=== PATIENT | female | born 1940 | race Caucasian/White ===

== ENCOUNTER 2023-07-31 12:51 | Outpatient (RCR) | payer MEDICARE, BC, SELFPAY | END 2023-08-01 16:08 | disposition home or self-care (01) | LOC: OT 12:51 | DX: I89.0 Lymphedema, not elsewhere classified (principal) | CPT/HCPCS: 97140; 97166; 97535 ==

== ENCOUNTER 2025-01-29 11:25 | Outpatient (REF) | payer MEDICARE, BC, SELFPAY ==
[2025-01-29 13:42] LABS: Anion Gap 8.9; Blood Urea Nitrogen 35.0 mg/dL (7.0-18.0); Calcium 9.1 mg/dL (8.5-10.1); Carbon Dioxide 31.3 mmol/L (21.0-32.0); Chloride 107 mmol/L (98-107); Estimated GFR (African America 27 (>=60 mL/min/1.73m^2); Estimated GFR (Non-African Ame 22 (>=60 mL/min/1.73m^2); Glucose 108 mg/dL (74-106); Potassium 4.2 mmol/L (3.5-5.1); Sodium 143 mmol/L (136-145)
--- OUTSIDE RECORDS SUMMARY | 2025-02-01 14:10 | XMS_ITS | CCD ---
Author Organization [facility] Inform ion Partnership [facility] Care Team Providers Care Quarter Folder Name Role Phone Pam Moses Consulting Unavailable Edgar Friend Admitting UnavailMarta Alatorre Primary Care Unavailable Torrie Ruano Attending Unavailable Moses Cormier Consulting Unavailable Elroy Morrison Consulting Unavailable Geovanny Cruz Consulting Unavail able Sunitha Nathan Consulting Unavailable Danilo Short Consulting Unavailab Lizeth Zarco Consulting Unavailable Gerda Turner Consulting Unavailable Carol Titus Consulting Unavailab Richard Land Consulting Unavailable DR MARILY MORRIS Primary Care Unavailable RAZ LEVINE Attending Unavailable RAZ LEVINE Admitting Unavailable Marta Dee MD Primary Care Provider WILL ENAMORADO Attending Unavailable JACLYN POTTS Attending Unavailable JACLYN POTTS Attending Unavailable DELROY, JACLYN Colbert Attending Unavailable DELROY, JACLYN Colbert Attending Unavailable Marta Dee MD Primary Care Provider Angeline Bridges MD Primary Care Provider CYRUS ANGELINE Referring Unavailable CYRUS, ANGELINE Primary Care Unavailable Cyrus DRUMMOND Angeline Primary Care Provider Cyrus DRUMMOND, Angeline Primary Care Provider [phone] SURJIT CORDOVA Referring Unavailable SURJIT CORDOVA Referring Unavailable SURJIT CORDOVA Attending Unavailable SURJIT CORDOVA Attending Unavailable FREDDY MANZO Attending Unavailable CYRUS, ANGELINE Referring Unavailable CYRUS, [facility] Primary Care Unavailable PAM BROTHERS Referring Unavailable MARTA DEE Primary Care Unavailable CHAN SHARMA Attending Unavailable CYRUS, ANGELINE Primary Care Unavailable CYRUS, ANGELINE Primary Care Unavailable LASHANDA MYRICK Attending Unavailable KEE LERMA Referring Unavailable CYRUS, ANGELINE Primary Care Unavailable KEE LERMA Referring Unavailable CYRUS, ANGELINE Primary Care Unavailable KEE LERMA Referring Unavailable CYRUS, ANGELINE Primary Care Unavailable KEE LERMA Referring Unavailable CYRUS, ANGELINE Primary Care Unavailable AMADO MONTOYA Attending Unavailable CYRSU, ANGELINE Referring Unavailable CYRUS, ANGELINE Primary Care Unavailable CYRUS, ANGELINE Primary Care Unavailable MATTHEW, MUHAMID M Admitting Unavailable ONLY), [facility] (INPATIENT Consult ing Unavailable CAM HANNON Attending Unavailable CYRUS, ANGELINE Primary Care Unavailable MATTHEW, MUHAMID M Admitting Unavailable CLAUDIA TAYLOR Consulting Unavailable STEVEN MERCADO Attending Unavailable ONLY), IP WOUND CARE SERVICES (INPATIENT Consult ing Unavailable ELISEO MOODY Consulting Unavailable DAVID POTTS Consulting Unavailable JACLYN POTTS Consulting Unavailable CODIE MARCH Attending Unavailable CYRUS, ANGELINE Referring Unavailable CYRUS, ANGELINE Primary Care Unavailable CYRUS, ANGELINE Primary Care Unavailable ONLY), IP WOUND CARE SERVICES (INPATIENT Consult ing Unavailable WILKES, RUQIYYA T Admitting Unavailable WILKES, RUQIYYA T Attending Unavailable CODIE MARCH Attending Unavailable MARTA DEE Referring Unavailable CYRUS, ANGELINE Primary Care Unavailable CYRUS, ANGELINE Primary Care Unavailable MATTHEW, MUHAMID M Admitting Unavailable ONLY), IP WOUND CARE SERVICES (INPATIENT Consult ing Unavailable STEVEN MERCADO Attending Unavailable DAVID POTTS Consulting Unavailable CYRUS, ANGELINE Referring Unavailable CYRUS, ANGELINE Primary Care Unavailable STEVEN MERCADO Referring Unavailable CYRUS, ANGELINE Primary Care Unavailable WILBER WEBSTER Referring Unavailable WILBER WEBSTER Referring Unavailable WILKES, RUQIYYA T Referring Unavailable CYRUS, ANGELINE Primary Care Unavailable WILBER WEBSTER Referring Unavailable Allergies Allergy Classification Reported Allergen(s) Allergy Type Date of Onset Reaction(s) Facility (5 sources) Diatrizoate; Translations: [DIATRIZOATE MEGLUMINE] Drug Allergy 7 [facility] (6 sources) Iodine; Translations: [IODINE] Drug Allergy 6 [facility] (1 source) levoFLOXacin Drug Allergy 2 [facility] (6 sources) Lisinopril; Translations: [LISINOPRIL] Drug Allergy 2 [facility] (5 sources) Propoxyphene; Translations: [PROPOXYPHENE] Drug Allergy 7 [facility] (1 source) Iodine (And Iodine Containting Drugs) Drug allergy (disorder) 9 [facility] (1 source) levoFLOXacin Drug Allergy 9 [facility] (1 source) Propoxyphene Drug Allergy 9 [facility] (4 sources) rOPINIRole; Translations: [ROPINIROLE] Drug Allergy 9 [facility] Rep[facility] (12 sources) Capsaicin; Translations: [CAPSAICIN] Drug Allergy 3 Unknown [facility] (20 sources) Iodine Drug Allergy 6 Rash [facility] (20 sources) levoFLOXacin Drug Allergy 7 Unknown, Rash [facility] (20 sources) Propoxyphene Drug Allergy 7 Unknown, Rash [facility] (10 sources) Iodinated Contrast Media; Translations: [IODINATED CONTRAST MEDIA] Drug Allergy 7 Unknown [facility] (3 sources) Lisinopril Propensity to adverse reactions 2 Cough [facility] (8 sources) rOPINIRole Drug Allergy 4 Unknown, Other (See Comments) [facility] (20 sources) Diatrizoate Drug Allergy 7 Rash [facility] (20 sources) Lisinopril Drug Allergy 7 Cough [facility] (6 sources) levoFLOXacin; Translations: [LEVOFLOXACIN IN D5W] Drug Allergy 6 [facility] (5 sources) Capsaicin Drug Allergy 3 Other (See Comments) [facility] Medications Current Medications Medication Drug Class(es) Dates Sig (Normalized) Sig (Original) acetaminophen 325 mg oral tablet (1 source) Start: 11-08-2024 take 1 tablet by mouth every six hours as needed for pain and headache and fever acetaminophen 300 mg / codeine phosphate 30 mg oral tablet (20 sources) Opioid Agonist Start: 03-20-2024 acetaminophen-cod eine (Tylenol w/ Codeine #3) 300-30 MG tablet Take 1 tablet by mouth as needed at bedtime 03/20/2024 Active Start: 03-20-2024 take 1 tablet by cherise th once daily as needed acetaminophen-codeine (TYLENOL #3) 300-3 0 mg per tablet Take 1 tablet by mouth daily as needed. 03/20/2024 Suspended take 1 tablet by cherise th every four hours as needed for pain acetaminophen-codeine (TYLENOL #3) 300-3 0 mg per tablet Take 1 tablet by mouth every 4 (four) hours as needed for pain. Active acetaminophen 325 mg / HYDROcodone bitartrate 5 mg oral tablet (1 source) Opioid Agonist Start: 11-09-2024 100 ml calcium gluconate 20 mg/ml injection (1 source) Start: 11-13-2024 carvedilol 25 mg oral tablet (3 sources) alpha-Adrenergic Sree, beta-Adrenergic Sree take 1 tablet by mouth in the morning carvedilol (Coreg) 25 MG tablet Take 1 tablet by mouth in the morning and 1 tablet in the evening. Take with meals. Active cefepime 1000 mg injection (6 sources) Cephalosporin Antibacterial Start: 11-11-2024 End: 11-24-2024 take 1000 mg intravenously every twenty-four hours cefEPime (MAXIPIME) 1000 mg/50 mL IVPB Premix Infuse 50 mL (1,000 mg total) into a venous catheter daily for 11 days. 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 40 mg in am and 20 mg in pm. 90 tablet 6 07/31/2024 Suspended glucagon (rdna) 1 mg injecti on (1 source) Antihypoglycemic Agent Start: 11-08-2024 150 ml glucose 50 mg/ml inje ction (3 sources) Start: 11-08-2024 Start: 11-08-2024 Start: 11-08-2024 hydroCHLOROthiazide 12.5 mg / losartan potassium 100 mg oral tablet (3 sources) Thiazide Diuretic, Angiotensin 2 Receptor Sree take 1 tablet by mouth once daily losartan-hydroCHLOROthiazide (Hyzaar) 100-12.5 MG tablet Take 1 tablet by mouth Daily Active insulin aspart, human 100 unt/ml injectable solution (20 sources) Insulin Analog Insulin Aspart ( NovoLOG) 100 UNIT/ML solution Inject as directed 2 (two) times a day 16 Units Breakfast, 20 Units dinner Active insulin aspart U -100 (NovoLOG) 100 unit/mL injection Inject under the skin in the morning and at noon and in the evening. Inject before meals. As directed per sliding scale. Suspended insulin aspart U -100 (NovoLOG) 100 unit/mL injection Inject under the skin 3 (three) times a day before meals. As directed per sliding scale Active insulin detemir 100 unt/ml injectable solution (20 sources) Insulin Analog inject 50 [IU] by subcutaneous injection once daily in the morning insulin detemir (Levemir) 100 UNIT/ML injection INJECT 50 UNITS UNDER THE SKIN EVERY MORNING for 80 Active inject 60 [IU] by deal bcutaneous injection in the morning insulin detemir (LEVEMIR FLEXPEN SUBQ) Inject 60 Units under the skin in the morning. Suspended inject 60 [IU] by deal bcutaneous injection in the morning insulin detemir (LEVEMIR FLEXPEN SUBQ) Inject 60 Units under the skin in the morning. Active inject 50 [IU] by deal bcutaneous injection in the morning insulin detemir (LEVEMIR FLEXPEN SUBQ) Inject 50 Units under the skin in the morning. Active inject 50 [IU] by deal bcutaneous injection in the morning insulin detemir (LEVEMIR FLEXPEN SUBQ) Inject 50 Units under the skin in the morning. 0 Active 3 ml insulin glargine 100 un t/ml pen injector (7 sources) Insulin Analog Start: 11-09-2024 inject 0.6 mL by sub cutaneous injection in the morning insulin glargine (LANTUS) 100 unit/mL injection Inject 0.6 mL (60 Units total) under the skin in the morning. 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 11/23/2022 Active 50 ml magnesium sulfate 40 m g/ml injection (2 sources) Start: 11-13-2024 Start: 11-13-2024 2 ml ondansetron 2 mg/ml injection (1 source) Serotonin-3 Receptor Antagonist Start: 11-08-2024 take 4 mg intravenously every six hours as needed for nausea and vomiting pantoprazole 40 mg delayed release oral tablet (20 sources) Proton Pump Inhibitor Start: 11-08-2024 microencapsulated potassium chloride 20 meq extended release oral tablet (5 sources) Start: 11-14-2024 take 1 tablet by mouth in the morning potassium chloride (KLOR-CON M 20) 20 MEQ CR tablet Take 1 tablet (20 mEq total) by mouth in the morning. 11/14/2024 Active Start: 11-14-2024 Start: 11-14-2024 Start: 11-13-2024 pregabalin 25 mg oral capsule (10 sources) Start: 11-13-2024 End: 11-16-2024 take 1 capsule by mouth in the morning, then take 1 capsule by mouth at bedtime pregabalin (LYRICA) 25 mg capsule Indications: Lymphedema , Acute kidney injury superimposed on CKD Take 1 capsule (25 mg total) by mouth in the morning and 1 capsule (25 mg total) before bedtime. Do all this for 3 days. 6 capsule 11/13/2024 11/16/2024 Active Start: 11-10-2024 End: 11-16-2024 spironolactone 25 mg oral tablet (10 sources) Aldosterone Antagonist Start: 11-13-2024 take 1 tablet by mouth in the morning spironolactone (ALDACTONE) 25 mg tablet Take 1 tablet (25 mg total) by mouth in the morning. 11/13/2024 Active Start: 11-13-2024 zolpidem tartrate 5 mg oral tablet (20 sources) gamma-Aminobutyric Acid-ergic Agonist Start: 11-08-2024 zolpidem (Ambien ) 10 MG tablet Take 10 mg by mouth Active take 0.5 tablet by m outh once daily as needed for sleep zolpidem (AMBIEN) 10 mg tablet Take 0.5 tablets (5 mg total) by mouth nightly as needed for sleep. Active (6 sources) Start: 11-13-2024 take 10 mL intraveno usly every twelve hours [Order 1 Start] Name: Consult PICC nurse - Midline Signed Summary: Reason for consult? Insert Midline IV, Indication: Duration of therapy 14 days or less, Number of Lumen(s): 1 Lumen [Order 1 End] [Order 2 Start] Name: sodium chloride 0.9 % flush 10 mL Signed Summary: 10 mL, intravenous, Every 12 hours, First dose on Sat11/13/24 at 1115, PICC line. Administer 10 mL per lumen; 10 mL total (for single lumen flush) [Order 2 End] [Order 3 Start] Name: sodium chloride 0.9 % flush 10 mL Signed Summary: 10 mL, intravenous, As needed, line care, Starting on Sat11/13/24 at 1101, PICC line. Administer 10 mL to each lumen before and after each use. Administer 10 mL per lumen; 10 mL total (for single lumen flush) [Order 3 End] [Order 4 Start] Name: sodium chloride 0.9 % flush 20 mL Signed Summary: 20 mL, intravenous, As needed, line care, Starting on Sat11/13/24 at 1101, PICC line. Administer 20 mL to each lumen after lab draws, blood infusion, and meds known to precipitate. Administer 20 mL per lumen; 20 mL total (for single lumen flush) [Order 4 End] Start: 11-13-2024 [Order 1 Start ] Name: sodium phosphate 20 mmol in sodium chloride 0.9 % 250 mL IVPB Signed Summary: 20 mmol, intravenous, at 42.8 mL/hr, Administer over 6 Hours, As needed, for phosphorus level 2.3 mg/dL or less, Starting on Sat11/13/24 at 0936, Administer over 6 hours via dedicated line (peripheral line). If administered, recheck phosphorus level 4 hours after infusion complete. [Order 1 End] [Order 2 Start] Name: sod phos di, mono-K phos mono (K-PHOS NEUTRAL) 250 mg tablet 2 tablet Signed Summary: 2 tablet, oral, As needed, for phosphorus level 2.3 mg/dL or less., Starting on Sat11/13/24 at 0936, If dose administered, recheck phosphorus level 4 hours after last dose. Look-alike/sound-alike medication - verify indication for use. Give with a full glass of water. [Order 2 End] Start: 11-13-2024 Start: 11-13-2024 Start: 11-13-2024 [Order 1 Start ] Name: potassium chloride (KLOR-CON M 20) CR tablet 20-40 mEq Signed Summary: 20-40 mEq, oral, As needed, Potassium Supplementation, Starting on Sat11/13/24 at 0935, Progress to oral potassium replacement when patient tolerating oral intake. If dose administered, recheck potassium level 4 hours after last dose. For potassium level 3.4 to 3.8 mmol/L and GFR less than 30 mL/min or dialysis=20 mEq. For potassium level 3.1 to 3.3 mmol/L and GFR less than 30 mL/min or dialysis=30 mEq. For potassium level 3 mmol/L or less and GFR less than 30 mL/min or dialysis=40 mEq. Do not crush or chew. [Order 1 End] [Order 2 Start] Name: potassium chloride (KAYCIEL) 20 mEq/15 mL solution 20-40 mEq Signed Summary: 20-40 mEq, oral, As needed, Potassium Supplementation, Starting on Sat11/13/24 at 0935, Progress to oral potassium replacement when patient tolerating oral intake. If dose administered, recheck potassium level 4 hours after last dose. For potassium level 3.4 to 3.8 mmol/L and GFR less than 30 mL/min or dialysis=20 mEq. For potassium level 3.1 to 3.3 mmol/L and GFR less than 30 mL/min or dialysis=30 mEq. For potassium level 3 mmol/L or less and GFR less than 30 mL/min or dialysis=40 mEq. Must dilute before use - Mix in 3-8 ounces of water or juice before administration When administering in feeding tube, flush before and after per policy and monitor potassium levels [Order 2 End] [Order 3 Start] Name: potassium chloride IVPB 10 mEq/100 mL in water (0.1 mEq/mL premix) Signed Summary: 10 mEq, intravenous, at 100 mL/hr, Administer over 60 Minutes, As needed, POTASSIUM REPLACEMENT, Starting on Sat11/13/24 at 0935, IV if unable to use oral/enteral with the current dosing strategies Potassium level 3 mmol/L or less administer Potassium Chloride 40 mEq Potassium level 3.1 to 3.3 mmol/L administer Potassium Chloride 30 mEq Potassium level 3.4 to 3.8 mmol/L administer Potassium Chloride 20 mEq Use central line when applicable. Recheck potassium level 1 hour after total IVPB infusion complete, With each potassium result continue the replacement orders as needed VESICANT (YELLOW) Infuse each 10 mEq over a minimum of 1 hour. [Order 3 End] Start: 11-08-2024 End: 11-08-2024 (1 source) Start: 11-10-2024 Completed/Discontinued Medications Medication Drug Class(es) Dates Sig (Normalized) Sig (Original) cefTRIAXone 2000 mg injection (1 source) Cephalosporin Antibacterial Start: 11-08-2024 End: 11-10-2024 take 2000 mg intravenously every twenty-four hours collagenase 0.25 unt/mg topical ointment (3 sources) Collagen-specific Enzyme collagenase (SANTYL) ointment Apply 1 Application topically daily. Apply to right calf and ankle wounds. Suspended 1 ml fentaNYL 0.05 mg/ml injection (1 source) Opioid Agonist Start: 11-10-2024 End: 11-10-2024 ferrous sulfate 325 mg oral tablet (6 sources) Start: 12-04-2024 take 1 tablet by mouth once daily at breakfast ferrous sulfate 325 (65 FE) MG tablet Take 1 tablet (325 mg total) by mouth daily with breakfast. 12/04/2024 Suspended 1 ml heparin sodium, porcine 5000 unt/ml injection (1 source) Unfractionated Heparin, Anti-coagulant Start: 11-08-2024 End: 11-09-2024 sodium hypochlorite 1.25 mg/ml topical solution (1 source) Start: 11-18-2024 End: 11-18-2024 1 Application, topical, Once, On Sat11/18/24 at 1415, For 1 dose Start: 11-18-2024 End: 11-18-2024 1 Application, topical, Once , On Sat11/18/24 at 1415, For 1 dose lidocaine 25 mg/ml / prilocaine 25 mg/ml topical cream (1 source) Antiarrhythmic, Amide Local Anesthetic Start: 11-18-2024 End: 11-18-2024 1 Application, topical, Once, On Sat11/18/24 at 1345, For 1 dose, If no allergy, apply topically to wounds with each wound care appointment with practitioner for pain control. Start: 11-18-2024 End: 11-18-2024 1 Application, topical, Once , On Sat11/18/24 at 1345, For 1 dose, If no allergy, apply topically to wounds with each wound care appointment with practitioner for pain control. magnesium oxide 400 mg oral tablet (20 sources) Start: 02-14-2024 take 1 tablet by mouth in the morning magnesium oxide (MAGOX) 400 mg tablet Take 1 tablet (400 mg total) by mouth in the morning. 90 tablet 3 02/14/2024 Suspended Start: 02-14-2024 naloxone (NARCAN) 4 mg/actua tion spray,non-aerosol nasal spray (6 sources) Start: 12-03-2024 naloxone (NARC AN) 4 mg/actuation spray,non-aerosol nasal spray Administer 1 spray (4 mg total) into alternating nostrils as needed for opioid reversal. 12/03/2024 Suspended Start: 12-03-2024 naloxone (NARC AN) 4 mg/actuation spray,non-aerosol nasal spray Administer 1 spray (4 mg total) into alternating nostrils as needed for opioid reversal. 12/03/2024 Active polyethylene glycol 3350 44028 mg powder for oral solution (3 sources) Osmotic Laxative polyethylene gl ycol (GLYCOLAX) 17 gram packet Take 17 g by mouth in the morning. Suspended povidone-iodine 100 mg/ml topical solution (3 sources) Antiseptic povidone-iodine (BETADINE) 10 % external solution Apply 1 Application topically daily. Apply daily and as needed to bilateral heel and toe wounds Suspended 125 ml sodium chloride 9 mg/ml prefilled syringe (20 sources) Start: 11-14-19 take 10 mL intravenously every twelve hours sodium chloride 0.9 % injection Infuse 10 mL into a venous catheter every 12 (twelve) hours. 11/13/2024 Suspended Start: 11-08-2024 take 10 mL intravenously every twelve hours Start: 11-08-2024 sodium zirconium cyclosilicate 53316 mg powder for oral suspension (1 source) Start: 11-09-2024 End: 11-09-2024 tamsulosin hydrochloride 0.4 mg oral capsule (11 sources) alpha-Adrenergic Sree Start: 11-13-2024 take 1 capsule by mouth once daily tamsulosin (FLOMAX) 0.4 mg capsule Take 1 capsule (0.4 mg total) by mouth nightly. 11/13/2024 Suspended traZODone hydrochloride 50 mg oral tablet (3 sources) Serotonin Reuptake Inhibitor take 1 tablet by mouth once daily traZODone (DESYREL) 50 mg tablet Take 1 tablet (50 mg total) by mouth nightly. Suspended vitamin b12 1 mg oral tablet (11 sources) Vitamin B12 Start: 11-14-2024 take 1 tablet by mouth in the morning cyanocobalamin 1000 MCG tablet Take 1 tablet (1,000 mcg total) by mouth in the morning. 11/14/2024 Suspended Start: 11-14-2024 Start: 11-14-2024 Start: 11-11-2024 Problems Active Problems Problem Classification Problem Date Documented Date Episodic/Chronic Acute and unspecified renal failure (1 source) Unspecified kidney failure; Translations: [N19 - Unspecified kidney failure] Onset: 2 Chronic Acute and unspecified renal failure (9 sources) Acute renal failure syndrome; Translations: [Acute kidney failure, unspecified] Onset: 5 11-14-2024 Episodic Anxiety disorders (1 source) Generalized anxiety disorder; Translations: [Generalized anxiety disorder] Onset: 5 Chronic Chronic kidney disease (12 sources) Chronic kidney disease, unspecified; Translations: [Chronic kidney disease stage 3B ] Onset: 2 02-14-2024 Chronic Chronic kidney disease (2 sources) Chronic kidney disease; Translations: [Chronic kidney disease, stage 3b] Onset: 5 Chronic ulcer of skin (20 sources) Pressure ulcer of right heel, unstageable; Translations: [Pressure ulcer, heel] Onset: 5 11-10-2024 Chronic Complication of device; implant or graft (1 source) Infection and inflammatory reaction due to indwelling urethral catheter, initial encounter; Translations: [Infection and inflammatory reaction due to indwelling urethral catheter, initial encounter] Onset: 5 Episodic Congestive heart failure; nonhypertensive (7 sources) Chronic diastolic heart failure; Translations: [Chronic diastolic (congestive) heart failure] Onset: 5 11-30-2024 Chronic Congestive heart failure; nonhypertensive (1 source) Congestive heart failure; nonhypertensive; Translations: [I50.9 - Heart failure, unspecified] Onset: 2 Deficiency and other anemia (6 sources) Iron deficiency anemia; Translations: [Iron deficiency anemia, unspecified] Onset: 5 12-01-2024 Episodic Deficiency and other anemia (1 source) Iron deficiency anemia, unspecified; Translations: [Iron deficiency anemia, unspecified] Onset: 5 Episodic Deficiency and other anemia (1 source) Other iron deficiency anemias; Translations: [Other iron deficiency anemias] Onset: 5 Episodic Diabetes mellitus with complications (10 sources) Type 2 diabetes mellitus with ulcer; Translations: [Type 2 diabetes mellitus with foot ulcer] 07-24-2023 Chronic Diabetes mellitus without complication (12 sources) Type 1 diabetes mellitus; Translations: [Type 1 diabetes mellitus without complications] Onset: 5 11-08-2024 Chronic Disorders of lipid metabolism (2 sources) Mixed hyperlipidemia; Translations: [Mixed hyperlipidemia] 07-08-2024 Chronic E Codes: Fall (1 source) Fall Onset: 5 Essential hypertension (20 sources) Essential (primary) hypertension; Translations: [Essential hypertension] Onset: 2 07-08-2024 Chronic Fluid and electrolyte disorders (20 sources) Hyperkalemia; Translations: [Hyperkalemia] Onset: 5 11-08-2024 Episodic Genitourinary symptoms and ill-defined conditions (3 sources) Retention of urine; Translations: [Retention of urine, unspecified] Onset: 5 11-14-2024 Episodic Heart valve disorders (20 sources) Rheumatic tricuspid insufficiency; 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] Onset: 2 01-15-2022 Chronic Malaise and fatigue (3 sources) Asthenia; Translations: [Weakness] Onset: 5 01-14-2025 Episodic Miscellaneous mental health disorders (1 source) Primary insomnia; Translations: [Primary insomnia] Onset: Chronic Nutritional deficiencies (2 sources) Vitamin D deficiency; Translations: [Vitamin D deficiency, unspecified] 07-08-2024 Chronic Other aftercare (5 sources) Patient encounter status; Translations: [intermediate designer (current) use of insulin] 07-24-2023 Episodic Other aftercare (2 sources) Long-term current use of insulin; Translations: [residential (current) use of insulin] 07-08-2024 Episodic Other connective tissue disease (1 source) Pain in lower limb Onset: Episodic Other diseases of veins and lymphatics (18 sources) Lymphedema; Translations: [Lymphedema, not elsewhere classified] Onset: 5 10-13-2024 Chronic Other diseases of veins and lymphatics (3 sources) Non-infectious disorder of lymphatics; Translations: [Other specified noninfective disorders of lymphatic vessels and lymph nodes] 10-13-2024 Chronic Other diseases of veins and lymphatics (2 sources) Other specified noninfective disorders of lymphatic vessels and lymph nodes; Translations: [Other specified noninfective disorders of lymphatic vessels and lymph nodes] Onset: 5 Chronic Other diseases of veins and lymphatics (2 sources) Lymphedema, not elsewhere classified; Translations: [Lymphedema, not elsewhere classified] Onset: 5 Chronic Other nutritional; endocrine; and metabolic disorders (8 sources) Severe obesity; Translations: [Class 3 severe obesity due to excess calories with serious comorbidity and body mass index (BMI) of 40.0 to 44.9 in adult ([facility])] Onset: 5 07-08-2024 Chronic Other nutritional; endocrine; and metabolic disorders (20 sources) Body mass index 40+ - severely obese; Translations: [Body mass index (BMI) 45.0-49.9, adult] Onset: 0 11-11-2019 Chronic Other nutritional; endocrine; and metabolic disorders (20 sources) Morbid obesity; Translations: [Morbid (severe) obesity due to excess calories] Onset: 2 01-15-2022 Chronic Other nutritional; endocrine; and metabolic disorders (1 source) Body mass index (BMI) 45.0-49.9, adult; Translations: [Body mass index (BMI) 45.0-49.9, adult] Onset: 0 Chronic Other screening for suspected conditions (not mental disorders or infectious disease) (1 source) Abnormal electrocardiogram [ECG] [EKG]; Translations: [Abnormal electrocardiogram (ECG) (EKG)] Onset: Episodic Peripheral and visceral atherosclerosis (11 sources) Peripheral vascular disease; Translations: [Peripheral vascular disease, unspecified] 11-08-2024 Chronic Pulmonary heart disease (20 sources) Pulmonary hypertension, unspecified; Translations: [Pulmonary hypertension] Onset: 2 01-15-2022 Chronic Residual codes; unclassified (6 sources) Urinary catheter in situ; Translations: [Presence of other specified devices] Onset: 5 12-01-2024 Episodic Residual codes; unclassified (1 source) Localized edema; Translations: [Localized edema] Onset: 5 Episodic Residual codes; unclassified (1 source) Other specified personal risk factors, not elsewhere classified; Translations: [Other specified personal risk factors, not elsewhere classified] Onset: 5 Episodic Skin and subcutaneous tissue infections (11 sources) Cellulitis of lower limb; Translations: [Cellulitis of unspecified part of limb] Onset: 5 10-27-2024 Episodic Thyroid disorders (16 sources) 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; Translations: [Autoimmune thyroiditis] 04-19-2024 Chronic Unclassified (2 sources) 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 (CMS-HCC) 01-01-2025 Unclassified (1 source) Abnormal Lab Onset: 5 Unclassified (1 source) Weakness - Generalized Onset: 5 Unclassified (1 source) Wound Check Onset: 5 Unclassified (1 source) Pre-op Exam Onset: 5 Unclassified (1 source) EMS Onset: 5 Urinary tract infections (1 source) Urinary tract infection, site not specified; Translations: [Urinary tract infection, site not specified] Onset: 5 Episodic Varicose veins of lower extremity (20 sources) Venous stasis ulcer with edema of right lower leg; Translations: [Varicose veins of right lower extremity with ulcer of unspecified site] Onset: Resolved: 5 11-10-2024 Episodic Past or Other Problems Problem Classification Problem Date Documented Date Episodic/Chronic Abdominal pain (20 sources) Abdominal pain; Translations: [Unspecified abdominal pain] Onset: 04-18-2019 04-18-2019 Episodic Calculus of urinary tract (20 sources) Ureteric stone; Translations: [Calculus of ureter] Onset: 11-03-2019 12-08-2019 Episodic Fracture of upper limb (4 sources) Fracture of unspecified carpal bone, right wrist, initial encounter for closed fracture; Translations: [Fracture of unspecified carpal bone, right wrist, subsequent encounter for fracture with routine healing] Onset: 08-30-2024 Episodic Mycoses (1 source) Onychomycosis due to dermatophyte ; Translations: [Tinea unguium] 02-18-2024 Episodic Open wounds of extremities (3 sources) Multiple open wounds of foot; Translations: [Unspecified open wound, unspecified foot, initial encounter] Onset: 10-08-2024 11-08-2024 Episodic Other hematologic conditions (1 source) Other specified abnormalities of plasma proteins; Translations: [R77.8 - Other specified abnormalities of plasma proteins] Onset: 10-04-2021 Episodic Other skin disorders (1 source) Dystrophia unguium; Translations: [Nail dystrophy] 02-18-2024 Episodic Results Test Name Value Interpretation Reference Range Facility ALL BASIC METABOLIC PANELon 01-29-2025 Anion gap [Moles/Vol] 8.9 mmol/L [facility] Calcium [Mass/Vol] 9.1 mg/dL 8.5 - 10. 1 mg/dL [facility] Chloride [Moles/Vol] 107 mmol/L 98 - 10 7 mmol/L [facility] CO2 [Moles/Vol] 31.3 mmol/L 21.0 - 32.0 mmol/L [facility] Creatinine [Mass/Vol] 2.1 mg/dL High 0.55 - 1.02 mg/dL [facility] GFR/1.73 sq M.predicted CKD-EPI (S/P/Bld) [Vol rate/Area] 27 Low >=60 mL/min/1.73 m 2 [facility] Glucose [Mass/Vol] 108 mg/dL High 74 - 106 mg/dL [facility] Interpretation and review of laboratory results Abnormal [facility] Potassium [Moles/Vol] 4.2 mmol/L 3.5 - 5.1 mmol/L [facility] Sodium [Moles/Vol] 143 mmol/L 136 - 145 mmol/L [facility] TBH EGFR-NON AF BAHRAINI 22 Low >=60 mL/min/1.73 m 2 [facility] Urea nitrogen [Mass/Vol] 35 mg/dL High 7.0 - 18.0 mg/dL [facility] Urea nitrogen/Creatinine [Mass ratio] 16.7 mg/mg [facility] (NO DIFF)on 01-20-2025 Erythrocyte distribution width (RBC) [Ratio] 14.1 % Normal 11.5-15 [facility] Comment on above: Performed By: #### C BC ####[address] [address] VIR Hematocrit (Bld) [Volume fraction] 31.0 % Low 35-47 [facility] Comment on above: Performed By: #### C BC ####[facility] ([address] [address] VIR Hemoglobin (Bld) [Mass/Vol] 10.1 g/dL Low 11.7-15.5 [facility] Comment on above: Performed By: #### C BC ####[facility] ([address] [address] VIR MCH (RBC) [Entitic mass] 27.6 pg Normal 27-34 [facility] Comment on above: Performed By: #### C BC ####[facility] ([address] [place] [address] VIR MCHC (RBC) [Mass/Vol] 32.6 g/dL Normal 32-36 [facility] Comment on above: Performed By: #### C BC ####[facility] ([address] [place] [address] VIR MCV (RBC) [Entitic vol] 85 fL Normal 80-100 [facility] Comment on above: Performed By: #### C BC ####[facility] ([address] [place] [address] VIR Platelet mean volume (Bld) [Entitic vol] 7.0 fL Normal 7-12 [facility] Comment on above: Performed By: #### C BC ####[facility] ([address] [place] [address] VIR Platelets (Bld) [#/Vol] 295 10*3/uL Normal 150-450 [facility] Comment on above: Performed By: #### C BC ####[facility] ([address] [place] [address] VIR RBC COUNT 3.66 X10E12/L Low 3.8-5.2 [facility] Comment on above: Performed By: #### C BC ####[facility] ([address] [place] [address] VIR WBC (Bld) [#/Vol] 13.5 10*3/uL High 4-11 [facility] Comment on above: Performed By: #### C BC ####[facility] ([address] [place] [address] VIR COMPREHENSIVE METABOLIC PANE José Luis 01-20-2025 Albumin [Mass/Vol] 2.3 g/dL Low 3.2-5.3 [facility] Comment on above: Performed By: #### C MP ####[facility] ([address] [place] [address] VIR ALP [Catalytic activity/Vol] 76 U/L Normal 39-130 [facility] Comment on above: Performed By: #### C MP ####[facility] ([facility] [place] [address] VIR ALT [Catalytic activity/Vol] 9 U/L Normal <=31 [facility] Comment on above: Performed By: #### C MP ####[facility] ([place] [address] [place] [address] VIR Anion gap [Moles/Vol] 10 mmol/L Normal 5-15 [facility] Comment on above: Performed By: #### C MP ####[facility] ([place] [address] [place] [address] VIR AST [Catalytic activity/Vol] 11 U/L Normal <=41 [facility] Comment on above: Performed By: #### C MP ####[facility] ([place] [address] [place] [address] VIR Bilirubin [Mass/Vol] 0.7 mg/dL Normal 0.3-1.2 [facility] Comment on above: Performed By: #### C MP ####[facility] ([place] [address] [place] [address] VIR Calcium [Mass/Vol] 8.5 mg/dL Normal 8.5-10.5 [facility] Comment on above: Performed By: #### C MP ####[facility] ([place] [address] [place] [address] VIR Chloride [Moles/Vol] 98 mmol/L Normal 98-109 [facility] Comment on above: Performed By: #### C MP ####[facility] ([place] [address] [place] [address] VIR CO2 [Moles/Vol] 27 mmol/L Normal 22-32 [facility] Comment on above: Performed By: #### C MP ####[facility] ([address] [place] [address] VIR Creatinine [Mass/Vol] 1.34 mg/dL High 0.40-1.00 [facility] Comment on above: Result Comment: METH OD TRACEABLE TO IDMS STANDARD Performed By: #### C MP ####[facility] ([address] [place] [address] VIR GFR/1.73 sq M.predicted among non-blacks MDRD (S/P/Bld) [Vol rate/Area] 39 mL/min/{1.73_m2} Low >=60 [facility] Comment on above: Result Comment: eGFR not reported due to non-numeric value for Creatinine.Reported eGFR is based on theCKD-EPI 2020 equation that doesnot use a race coefficient. Performed By: #### C MP ####[facility] ([address] [place] [address] VIR Glucose [Mass/Vol] 119 mg/dL High 65-99 [facility] Comment on above: Performed By: #### C MP ####[facility] ([address] [place] [address] VIR Potassium [Moles/Vol] 3.9 mmol/L Normal 3.5-5.0 [facility] Comment on above: Performed By: #### C MP ####[facility] ([address] [place] [address] VIR Protein [Mass/Vol] 6.0 g/dL Normal 6.0-8.0 [facility] Comment on above: Performed By: #### C MP ####[facility] ([address] [place] [address] VIR Sodium [Moles/Vol] 135 mmol/L Normal 134-146 [facility] Comment on above: Performed By: #### C MP ####[facility] ([facility])[address] [address] VIR Urea nitrogen [Mass/Vol] 29 mg/dL High 5-27 [facility] Comment on above: Performed By: #### C MP ####[facility] ([facility])[address] [place] [address] [place] [address] VIR MAGNESIUMon 01-20-2025 Magnesium [Mass/Vol] 2.3 mg/dL Normal 1.8-2.6 [facility] Comment on above: Performed By: #### M G ####[facility] ([facility])[address] [place] [address] [place] [address] VIR BEDSIDE GLUCOSEon 01-19-2025 Glucose [Mass/Vol] 209 mg/dL High 65-99 [facility] Comment on above: Performed By: #### B EDG ####[facility] ([address] [place] [address] VIR Glucose [Mass/Vol] 311 mg/dL High 65-99 [facility] Comment on above: Performed By: #### B EDG ####[facility])[address] [place] [address] [place] [address] VIR Glucose [Mass/Vol] 127 mg/dL High 65-99 [facility] Comment on above: Performed By: #### B EDG ####[facility] ([address] [place] [address] VIR Glucose [Mass/Vol] 115 mg/dL High 65-99 [facility] Comment on above: Performed By: #### B EDG ####[facility])[address] [place] [address] [place] [address] VIR CBC (NO DIFF)on 01-19-2025 Erythrocyte distribution width (RBC) [Ratio] 13.5 % Normal 11.5-15 [facility] Comment on above: Performed By: #### C BC ####[facility] ([address] [address] VIR Hematocrit (Bld) [Volume fraction] 31.8 % Low 35-47 [facility] Comment on above: Performed By: #### C BC ####[facility] ([address] [address] VIR Hemoglobin (Bld) [Mass/Vol] 10.5 g/dL Low 11.7-15.5 [facility] Comment on above: Performed By: #### C BC ####[facility] ([address] [address] VIR MCH (RBC) [Entitic mass] 27.9 pg Normal 27-34 [facility] Comment on above: Performed By: #### C BC ####[facility] ([address] [address] VIR MCHC (RBC) [Mass/Vol] 33.0 g/dL Normal 32-36 [facility] Comment on above: Performed By: #### C BC ####[facility] ([address] [address] VIR MCV (RBC) [Entitic vol] 85 fL Normal 80-100 [facility] Comment on above: Performed By: #### C BC ####[facility] ([address] [address] VIR Platelet mean volume (Bld) [Entitic vol] 7.0 fL Normal 7-12 [facility] Comment on above: Performed By: #### C BC ####[facility] ([address] [address] VIR Platelets (Bld) [#/Vol] 307 10*3/uL Normal 150-450 [facility] Comment on above: Performed By: #### C BC ####[facility])[address] [place] [address] VIR RBC COUNT 3.75 X10E12/L Low 3.8-5.2 [facility] Comment on above: Performed By: #### C BC ####[facility])[address] [place], [place] [address] [address] VIR WBC (Bld) [#/Vol] 13.1 10*3/uL High 4-11 [facility] Comment on above: Performed By: #### C BC ####[facility])[address] [place], [place] [address] [place] [address] VIR COMPREHENSIVE METABOLIC PANE José Luis 01-19-2025 Albumin [Mass/Vol] 2.4 g/dL Low 3.2-5.3 [facility] Comment on above: Performed By: #### C MP ####[facility] ([address] [place] [address] VIR ALP [Catalytic activity/Vol] 78 U/L Normal 39-130 [facility] Comment on above: Performed By: #### C MP ####[facility] ([address] [place] [address] VIR ALT [Catalytic activity/Vol] 11 U/L Normal <=31 [facility] Comment on above: Performed By: #### C MP ####[facility] ([address] [place] [address] VIR Anion gap [Moles/Vol] 10 mmol/L Normal 5-15 [facility] Comment on above: Performed By: #### C MP ####[facility] ([address] [place] [address] VIR AST [Catalytic activity/Vol] 12 U/L Normal <=41 [facility] Comment on above: Performed By: #### C MP ####[facility] [place] [address] VIR Bilirubin [Mass/Vol] 0.4 mg/dL Normal 0.3-1.2 [facility] Comment on above: Performed By: #### C MP ####[facility] ([address] [place] [address] VIR Calcium [Mass/Vol] 8.8 mg/dL Normal 8.5-10.5 [facility] Comment on above: Performed By: #### C MP ####[facility] ([address] [place] [address] VIR Chloride [Moles/Vol] 101 mmol/L Normal 98-109 [facility] Comment on above: Performed By: #### C MP ####[facility] ([address] [place] [address] VIR CO2 [Moles/Vol] 30 mmol/L Normal 22-32 [facility] Comment on above: Performed By: #### C MP ####[facility] ([address] [place] [address] VIR Creatinine [Mass/Vol] 1.20 mg/dL High 0.40-1.00 [facility] Comment on above: Result Comment: METH OD TRACEABLE TO IDMS STANDARD Performed By: #### C MP ####[facility] ([address] [place] [address] VIR GFR/1.73 sq M.predicted among non-blacks MDRD (S/P/Bld) [Vol rate/Area] 45 mL/min/{1.73_m2} Low >=60 [facility] Comment on above: Result Comment: eGFR not reported due to non-numeric value for Creatinine.Reported eGFR is based on theCKD-EPI 2020 equation that doesnot use a race coefficient. Performed By: #### C MP ####[facility] ([address] [place] [address] VIR Glucose [Mass/Vol] 78 mg/dL Normal 65-99 [facility] Comment on above: Performed By: #### C MP ####[facility])[address] [place] [address] [place] [address] VIR Potassium [Moles/Vol] 3.9 mmol/L Normal 3.5-5.0 [facility] Comment on above: Performed By: #### C MP ####[facility])[address] [place] [address] [place] [address] VIR Protein [Mass/Vol] 6.2 g/dL Normal 6.0-8.0 [facility] Comment on above: Performed By: #### C MP ####[facility] ([address] [place] [address] VIR Sodium [Moles/Vol] 141 mmol/L Normal 134-146 [facility] Comment on above: Performed By: #### C MP ####[facility] ([address] [place] [address] VIR Urea nitrogen [Mass/Vol] 25 mg/dL Normal 5-27 [facility] Comment on above: Performed By: #### C MP ####[facility] ([address] [place] [address] VIR MAGNESIUMon 01-19-2025 Magnesium [Mass/Vol] 2.6 mg/dL Normal 1.8-2.6 [facility] Comment on above: Performed By: #### M G ####[facility] ([address] [place] [address] VIR MR LOWER LEG LT WO CONTon MR LOWER LEG LT WO CONT Normal [facility] MR LOWER LEG RT WO CONTon MR LOWER LEG RT WO CONT Normal [facility] BEDSIDE GLUCOSEon 01-18-2025 Glucose [Mass/Vol] 233 mg/dL High 65-99 [facility] Comment on above: Performed By: #### B EDG ####[facility] ([address] [place] [address] VIR Glucose [Mass/Vol] 162 mg/dL High 65-99 [facility] Comment on above: Performed By: #### B EDG ####[facility] ([address] [place] [address] VIR Glucose [Mass/Vol] 166 mg/dL High 65-99 [facility] Comment on above: Performed By: #### B EDG ####[facility] ([address] [place] [address] VIR CBC (NO DIFF)on 01-18-2025 Erythrocyte distribution width (RBC) [Ratio] 13.5 % Normal 11.5-15 [facility] Comment on above: Performed By: #### C BC ####[facility] ([address] [place] [address] VIR Hematocrit (Bld) [Volume fraction] 32.3 % Low 35-47 [facility] Comment on above: Performed By: #### C BC ####[facility] ([address] [place] [address] VIR Hemoglobin (Bld) [Mass/Vol] 10.7 g/dL Low 11.7-15.5 [facility] Comment on above: Performed By: #### C BC ####[facility] ([address] [place] [address] VIR MCH (RBC) [Entitic mass] 28.0 pg Normal 27-34 [facility] Comment on above: Performed By: #### C BC ####[facility] ([address] [place] [address] VIR MCHC (RBC) [Mass/Vol] 33.1 g/dL Normal 32-36 [facility] Comment on above: Performed By: #### C BC ####[facility] ([address] [place] [address] VIR MCV (RBC) [Entitic vol] 85 fL Normal 80-100 [facility] Comment on above: Performed By: #### C BC ####[facility] ([address] [place] [address] VIR Platelet mean volume (Bld) [Entitic vol] 7.4 fL Normal 7-12 [facility] Comment on above: Performed By: #### C BC ####[facility] ([address] [place] [address] VIR Platelets (Bld) [#/Vol] 293 10*3/uL Normal 150-450 [facility] Comment on above: Performed By: #### C BC ####[facility] ([address] [place] [address] VIR RBC COUNT 3.82 X10E12/L Normal 3.8-5.2 [facility] Comment on above: Performed By: #### C BC ####[facility] ([address] [place] [address] VIR WBC (Bld) [#/Vol] 11.9 10*3/uL High 4-11 [facility] Comment on above: Performed By: #### C BC ####[facility] ([address] [place] [address] VIR COMPREHENSIVE METABOLIC PANE José Luis 01-18-2025 Albumin [Mass/Vol] 2.3 g/dL Low 3.2-5.3 [facility] Comment on above: Performed By: #### C MP ####[facility] ([address] [place] [address] VIR ALP [Catalytic activity/Vol] 80 U/L Normal 39-130 [facility] Comment on above: Performed By: #### C MP ####[facility] ([place] [address] [place] [address] VIR ALT [Catalytic activity/Vol] 9 U/L Normal <=31 [facility] Comment on above: Performed By: #### C MP ####[facility] ([address] [place] [address] VIR Anion gap [Moles/Vol] 8 mmol/L Normal 5-15 [facility] Comment on above: Performed By: #### C MP ####[facility] ([address] [place] [address] VIR AST [Catalytic activity/Vol] 11 U/L Normal <=41 [facility] Comment on above: Performed By: #### C MP ####[facility] ([address] [place] [address] VIR Bilirubin [Mass/Vol] 0.5 mg/dL Normal 0.3-1.2 [facility] Comment on above: Performed By: #### C MP ####[facility] ([address] [place] [address] VIR Calcium [Mass/Vol] 8.6 mg/dL Normal 8.5-10.5 [facility] Comment on above: Performed By: #### C MP ####[facility] ([address] [place] [address] VIR Chloride [Moles/Vol] 99 mmol/L Normal 98-109 [facility] Comment on above: Performed By: #### C MP ####[facility] ([address] [place] [address] VIR CO2 [Moles/Vol] 29 mmol/L Normal 22-32 [facility] Comment on above: Performed By: #### C MP ####[facility] ([address] [place] [address] VIR Creatinine [Mass/Vol] 1.22 mg/dL High 0.40-1.00 [facility] [facility] Comment on above: Result Comment: METH OD TRACEABLE TO IDMS STANDARD Performed By: #### C MP ####[facility] ([address] [place] [address] VIR GFR/1.73 sq M.predicted among non-blacks MDRD (S/P/Bld) [Vol rate/Area] 44 mL/min/{1.73_m2} Low >=60 [facility] Comment on above: Result Comment: eGFR not reported due to non-numeric value for Creatinine.Reported eGFR is based on theCKD-EPI 2020 equation that doesnot use a race coefficient. Performed By: #### C MP ####[facility] ([address] [place] [address] VIR Glucose [Mass/Vol] 104 mg/dL High 65-99 [facility] Comment on above: Performed By: #### C MP ####[facility] ([address] [place] [address] VIR Potassium [Moles/Vol] 3.5 mmol/L Normal 3.5-5.0 [facility] Comment on above: Performed By: #### C MP ####[facility] ([address] [place] [address] VIR Protein [Mass/Vol] 6.2 g/dL Normal 6.0-8.0 [facility] Comment on above: Performed By: #### C MP ####[facility] ([address] [place] [address] VIR Sodium [Moles/Vol] 136 mmol/L Normal 134-146 [facility] Comment on above: Performed By: #### C MP ####[facility] ([address] [place] [address] VIR Urea nitrogen [Mass/Vol] 26 mg/dL Normal 5-27 [facility] Comment on above: Performed By: #### C MP ####[facility] ([address] [place] [address] VIR MAGNESIUMon 01-18-2025 Magnesium [Mass/Vol] 2.4 mg/dL Normal 1.8-2.6 [facility] Comment on above: Performed By: #### M G ####[facility] ([address] [place] [address] VIR Magnesium [Mass/Vol] 1.9 mg/dL Normal 1.8-2.6 [facility] Comment on above: Performed By: #### M G ####[address] [place] [address] VIR MR FOOT LT WO CONTon 025 MR FOOT LT WO CONT Normal [facility] MR FOOT RT WO CONTon 025 MR FOOT RT WO CONT Normal [facility] POTASSIUMon 01-18-2025 Potassium [Moles/Vol] 4.2 mmol/L Normal 3.5-5.0 [facility] Comment on above: Performed By: #### K ####[facility] ([address] [place] [address] VIR VANCOMYCIN, RANDOMon 025 VANCOMYCIN 18.7 ug/mL Normal 5.0-40.0 [facility] Comment on above: Order Comment: Peak 30-40 ug/mLTrough 5-20 ug/ml Performed By: #### V ANC ####[facility] ([address] [place] [address] VIR BEDSIDE GLUCOSEon 01-17-2025 Glucose [Mass/Vol] 231 mg/dL High 65-99 [facility] Comment on above: Performed By: #### B EDG ####[facility] ([facility])[address] [place] [address] [place] [address] VIR Glucose [Mass/Vol] 184 mg/dL High 65-99 [facility] Comment on above: Performed By: #### B EDG ####[facility])[address] [place] [address] [place] [address] VIR Glucose [Mass/Vol] 129 mg/dL High 65-99 [facility] Comment on above: Performed By: #### B EDG ####[facility] ([address] [place] [address] VIR Glucose [Mass/Vol] 144 mg/dL High 65-99 [facility] Comment on above: Performed By: #### B EDG ####[facility] ([address] [place] [address] VIR CBC (NO DIFF)on 01-17-2025 Erythrocyte distribution width (RBC) [Ratio] 13.8 % Normal 11.5-15 [facility] Comment on above: Performed By: #### C BC ####[facility] ([address] [place] [address] VIR Hematocrit (Bld) [Volume fraction] 32.0 % Low 35-47 [facility] Comment on above: Performed By: #### C BC ####[facility] ([address] [place] [address] VIR Hemoglobin (Bld) [Mass/Vol] 10.4 g/dL Low 11.7-15.5 [facility] Comment on above: Performed By: #### C BC ####[facility] ([address] [place] [address] VIR MCH (RBC) [Entitic mass] 27.5 pg Normal 27-34 [facility] Comment on above: Performed By: #### C BC ####[facility] ([address] [place] [address] VIR MCHC (RBC) [Mass/Vol] 32.5 g/dL Normal 32-36 [facility] Comment on above: Performed By: #### C BC ####[facility] ([address] [place] [address] VIR MCV (RBC) [Entitic vol] 85 fL Normal 80-100 [facility] Comment on above: Performed By: #### C BC ####[facility] ([address] [place] [address] VIR Platelet mean volume (Bld) [Entitic vol] 7.3 fL Normal 7-12 [facility] Comment on above: Performed By: #### C BC ####[facility] ([address] [place] [address] VIR Platelets (Bld) [#/Vol] 288 10*3/uL Normal 150-450 [facility] Comment on above: Performed By: #### C BC ####[facility] ([address] [place] [address] VIR RBC COUNT 3.77 X10E12/L Low 3.8-5.2 [facility] Comment on above: Performed By: #### C BC ####[facility] ([address] [place] [address] VIR WBC (Bld) [#/Vol] 11.0 10*3/uL Normal 4-11 [facility] Comment on above: Performed By: #### C BC ####[facility] ([address] [place] [address] VIR COMPREHENSIVE METABOLIC PANE José Luis 01-17-2025 Albumin [Mass/Vol] 2.3 g/dL Low 3.2-5.3 [facility] Comment on above: Performed By: #### C MP ####[facility] ([facility])[address] [place] [address] VIR ALP [Catalytic activity/Vol] 86 U/L Normal 39-130 [facility] Comment on above: Performed By: #### C MP ####[facility])[address] [address] VIR ALT [Catalytic activity/Vol] 11 U/L Normal <=31 [facility] Comment on above: Performed By: #### C MP ####[facility] ([place] [address] [place] [address] VIR Anion gap [Moles/Vol] 9 mmol/L Normal 5-15 [facility] Comment on above: Performed By: #### C MP ####[facility] ([place] [address] [place] [address] VIR AST [Catalytic activity/Vol] 11 U/L Normal <=41 [facility] Comment on above: Performed By: #### C MP ####[facility] ([facility] [place] [address] VIR Bilirubin [Mass/Vol] 0.6 mg/dL Normal 0.3-1.2 [facility] Comment on above: Performed By: #### C MP ####[facility] ([place] [address] [place] [address] VIR Calcium [Mass/Vol] 8.6 mg/dL Normal 8.5-10.5 [facility] Comment on above: Performed By: #### C MP ####[facility] ([place] [address] [place] [address] VIR Chloride [Moles/Vol] 99 mmol/L Normal 98-109 [facility] Comment on above: Performed By: #### C MP ####[facility] ([place] [address] [place] [address] VIR CO2 [Moles/Vol] 30 mmol/L Normal 22-32 [facility] Comment on above: Performed By: #### C MP ####[facility] ([address] [place] [address] VIR Creatinine [Mass/Vol] 1.32 mg/dL High 0.40-1.00 [facility] Comment on above: Result Comment: METH OD TRACEABLE TO IDMS STANDARD Performed By: #### C MP ####[facility] ([facility])[address] [place] [address].[place] [address] VIR GFR/1.73 sq M.predicted among non-blacks MDRD (S/P/Bld) [Vol rate/Area] 40 mL/min/{1.73_m2} Low >=60 [facility] Comment on above: Result Comment: eGFR not reported due to non-numeric value for Creatinine.Reported eGFR is based on theCKD-EPI 2020 equation that doesnot use a race coefficient. Performed By: #### C MP ####[facility] ([address] [place] [address] VIR Glucose [Mass/Vol] 152 mg/dL High 65-99 [facility] Comment on above: Performed By: #### C MP ####[facility] ([address] [place] [address] VIR Potassium [Moles/Vol] 4.0 mmol/L Normal 3.5-5.0 [facility] Comment on above: Performed By: #### C MP ####[facility] ([address] [place] [address] VIR Protein [Mass/Vol] 6.0 g/dL Normal 6.0-8.0 [facility] Comment on above: Performed By: #### C MP ####[facility] ([address] [place] [address] VIR Sodium [Moles/Vol] 138 mmol/L Normal 134-146 [facility] Comment on above: Performed By: #### C MP ####[facility] ([address] [place] [address] VIR Urea nitrogen [Mass/Vol] 28 mg/dL High 5-27 [facility] Comment on above: Performed By: #### C MP ####[facility] ([address] [place] [address] VIR MAGNESIUMon 01-17-2025 Magnesium [Mass/Vol] 2.0 mg/dL Normal 1.8-2.6 [facility] Comment on above: Performed By: #### M G ####[facility] ([address] [place] [address] VIR VANCOMYCIN, TROUGHon 025 VANCOMYCIN TROUGH 21.8 ug/mL High 5.0-20.0 [facility] Comment on above: Performed By: #### V ANCTR ####[facility] ([address] [place] [address] VIR BEDSIDE GLUCOSEon 01-16-2025 Glucose [Mass/Vol] 86 mg/dL Normal 65-99 [facility] Comment on above: Performed By: #### B EDG ####[facility] ([address] [place] [address] VIR Glucose [Mass/Vol] 115 mg/dL High 65-99 [facility] Comment on above: Performed By: #### B EDG ####[facility] ([address] [place] [address] VIR Glucose [Mass/Vol] 136 mg/dL High 65-99 [facility] Comment on above: Performed By: #### B EDG ####[facility] ([address] [place] [address] VIR Glucose [Mass/Vol] 53 mg/dL Critically low 65-99 [facility] Comment on above: Performed By: #### B EDG ####[facility] ([address] [address] VIR CBC (NO DIFF)on 01-16-2025 Erythrocyte distribution width (RBC) [Ratio] 14.1 % Normal 11.5-15 [facility] Comment on above: Performed By: #### C BC ####[facility] ([address] [address] VIR Hematocrit (Bld) [Volume fraction] 32.7 % Low 35-47 [facility] Comment on above: Performed By: #### C BC ####[facility] ([address] [address] VIR Hemoglobin (Bld) [Mass/Vol] 10.8 g/dL Low 11.7-15.5 [facility] Comment on above: Performed By: #### C BC ####[facility] ([address] [address] VIR MCH (RBC) [Entitic mass] 27.9 pg Normal 27-34 [facility] Comment on above: Performed By: #### C BC ####[facility] ([address] [address] VIR MCHC (RBC) [Mass/Vol] 32.9 g/dL Normal 32-36 [facility] Comment on above: Performed By: #### C BC ####[facility] ([address] [address] VIR MCV (RBC) [Entitic vol] 85 fL Normal 80-100 [facility] Comment on above: Performed By: #### C BC ####[facility] ([address] [place] [address] VIR Platelet mean volume (Bld) [Entitic vol] 7.2 fL Normal 7-12 [facility] Comment on above: Performed By: #### C BC ####[facility] ([place] [address] [place] [address] VIR Platelets (Bld) [#/Vol] 298 10*3/uL Normal 150-450 [facility] Comment on above: Performed By: #### C BC ####[facility] ([place] [address] [place] [address] VIR RBC COUNT 3.86 X10E12/L Normal 3.8-5.2 [facility] Comment on above: Performed By: #### C BC ####[facility] ([address] [place] [address] VIR WBC (Bld) [#/Vol] 13.8 10*3/uL High 4-11 [facility] Comment on above: Performed By: #### C BC ####[facility] ([address] [place] [address] VIR COMPREHENSIVE METABOLIC PANE José Luis 01-16-2025 Albumin [Mass/Vol] 2.3 g/dL Low 3.2-5.3 [facility] Comment on above: Performed By: #### C MP ####[facility] ([address] [place] [address] VIR ALP [Catalytic activity/Vol] 87 U/L Normal 39-130 [facility] Comment on above: Performed By: #### C MP ####[facility] ([place] [address] [place] [address] VIR ALT [Catalytic activity/Vol] 13 U/L Normal <=31 [facility] Comment on above: Performed By: #### C MP ####[facility] ([place] [address] [place] [address] VIR Anion gap [Moles/Vol] 10 mmol/L Normal 5-15 [facility] Comment on above: Performed By: #### C MP ####[facility] ([address] [place] [address] VIR AST [Catalytic activity/Vol] 13 U/L Normal <=41 [facility] Comment on above: Performed By: #### C MP ####[facility] ([address] [place] [address] VIR Bilirubin [Mass/Vol] 0.7 mg/dL Normal 0.3-1.2 [facility] Comment on above: Performed By: #### C MP ####[facility] ([address] [place] [address] VIR Calcium [Mass/Vol] 8.5 mg/dL Normal 8.5-10.5 [facility] Comment on above: Performed By: #### C MP ####[facility] ([address] [place] [address] VIR Chloride [Moles/Vol] 100 mmol/L Normal 98-109 [facility] Comment on above: Performed By: #### C MP ####[facility] ([address] [place] [address] VIR CO2 [Moles/Vol] 28 mmol/L Normal 22-32 [facility] Comment on above: Performed By: #### C MP ####[facility] ([address] [place] [address] VIR Creatinine [Mass/Vol] 1.24 mg/dL High 0.40-1.00 [facility] Comment on above: Result Comment: METH OD TRACEABLE TO IDMS STANDARD Performed By: #### C MP ####[facility] ([address] [place] [address] VIR GFR/1.73 sq M.predicted among non-blacks MDRD (S/P/Bld) [Vol rate/Area] 43 mL/min/{1.73_m2} Low >=60 [facility] Comment on above: Result Comment: Repo rted eGFR is based on theCKD-EPI 2020 equation that doesnot use a race coefficient. Performed By: #### C MP ####[facility] ([place] [address] [place] [address] VIR Glucose [Mass/Vol] 45 mg/dL Critically low 65-99 [facility] Comment on above: Performed By: #### C MP ####[facility] ([address] [place] [address] VIR Potassium [Moles/Vol] 3.8 mmol/L Normal 3.5-5.0 [facility] Comment on above: Performed By: #### C MP ####[facility] ([address] [place] [address] VIR Protein [Mass/Vol] 6.2 g/dL Normal 6.0-8.0 [facility] Comment on above: Performed By: #### C MP ####[facility] ([address] [place] [address] VIR Sodium [Moles/Vol] 138 mmol/L Normal 134-146 [facility] Comment on above: Performed By: #### C MP ####[facility] ([place] [address] [place] [address] VIR Urea nitrogen [Mass/Vol] 29 mg/dL High 5-27 [facility] Comment on above: Performed By: #### C MP ####[facility] ([address] [place] [address] VIR MAGNESIUMon 01-16-2025 Magnesium [Mass/Vol] 2.1 mg/dL Normal 1.8-2.6 [facility] Comment on above: Performed By: #### M G ####[facility] ([address] [place] [address] VIR PROCALCITONINon 01-16-2025 PROCALCITONIN 0.52 ng/mL High <0.05 [facility] Comment on above: Order Comment: <0.50 ng/mL - Low risk of severe sepsis and/or septic shock.<2.00 ng/mL - Recommend retesting within 6-24 hours.>2.00 ng/mL - High risk of sepsis and/or septic shock. Performed By: #### P DAVID ####[facility] ([address] [address] VIR BEDSIDE GLUCOSEon 01-15-2025 Glucose [Mass/Vol] 198 mg/dL High 65-99 [facility] Comment on above: Performed By: #### B EDG ####[address] [address] VIR Glucose [Mass/Vol] 144 mg/dL High 65-99 [facility] Comment on above: Performed By: #### B EDG ####[address] [address] VIR Glucose [Mass/Vol] 99 mg/dL Normal 65-99 [facility] Comment on above: Performed By: #### B EDG ####[address] [place] [address] VIR CBC (NO DIFF)on 01-15-2025 Erythrocyte distribution width (RBC) [Ratio] 13.6 % Normal 11.5-15 [facility] Comment on above: Performed By: #### C BC ####[address] [address] VIR Hematocrit (Bld) [Volume fraction] 31.7 % Low 35-47 [facility] Comment on above: Performed By: #### C BC ####[address] [place] [address] VIR Hemoglobin (Bld) [Mass/Vol] 10.4 g/dL Low 11.7-15.5 [facility] Comment on above: Performed By: #### C BC ####[facility] ([address] [place] [address] VIR MCH (RBC) [Entitic mass] 28.0 pg Normal 27-34 [facility] Comment on above: Performed By: #### C BC ####[facility])[address] [place] [address].[place] [address] VIR MCHC (RBC) [Mass/Vol] 32.8 g/dL Normal 32-36 [facility] Comment on above: Performed By: #### C BC ####[facility] ([address] [place] [address] VIR MCV (RBC) [Entitic vol] 85 fL Normal 80-100 [facility] Comment on above: Performed By: #### C BC ####[facility] ([address] [place] [address] VIR Platelet mean volume (Bld) [Entitic vol] 7.3 fL Normal 7-12 [facility] Comment on above: Performed By: #### C BC ####[facility] ([address] [place] [address] VIR Platelets (Bld) [#/Vol] 312 10*3/uL Normal 150-450 [facility] Comment on above: Performed By: #### C BC ####[facility] ([address] [place] [address] VIR RBC COUNT 3.72 X10E12/L Low 3.8-5.2 [facility] Comment on above: Performed By: #### C BC ####[facility] ([address] [place] [address] VIR WBC (Bld) [#/Vol] 14.6 10*3/uL High 4-11 [facility] Comment on above: Performed By: #### C BC ####[facility] ([place] [address] [place] [address] VIR COMPREHENSIVE METABOLIC PANE José Luis 01-15-2025 Albumin [Mass/Vol] 2.3 g/dL Low 3.2-5.3 [facility] Comment on above: Performed By: #### C MP ####[facility] ([place] [address] [place] [address] VIR ALP [Catalytic activity/Vol] 90 U/L Normal 39-130 [facility] Comment on above: Performed By: #### C MP ####[facility] ([place] [address] [place] [address] VIR ALT [Catalytic activity/Vol] 12 U/L Normal <=31 [facility] Comment on above: Performed By: #### C MP ####[facility] ([place] [address] [place] [address] VIR Anion gap [Moles/Vol] 8 mmol/L Normal 5-15 [facility] Comment on above: Performed By: #### C MP ####[facility] ([place] [address] [place] [address] VIR AST [Catalytic activity/Vol] 14 U/L Normal <=41 [facility] Comment on above: Performed By: #### C MP ####[facility] ([place] [address] [place] [address] VIR Bilirubin [Mass/Vol] 0.6 mg/dL Normal 0.3-1.2 [facility] Comment on above: Performed By: #### C MP ####[facility] ([place] [address] [place] [address] VIR Calcium [Mass/Vol] 8.5 mg/dL Normal 8.5-10.5 [facility] Comment on above: Performed By: #### C MP ####[facility] ([address] [place] [address] VIR Chloride [Moles/Vol] 101 mmol/L Normal 98-109 [facility] Comment on above: Performed By: #### C MP ####[facility] ([address] [place] [address] VIR CO2 [Moles/Vol] 27 mmol/L Normal 22-32 [facility] Comment on above: Performed By: #### C MP ####[facility] ([address] [place] [address] VIR Creatinine [Mass/Vol] 1.27 mg/dL High 0.40-1.00 [facility] Comment on above: Result Comment: METH OD TRACEABLE TO IDMS STANDARD Performed By: #### C MP ####[facility] ([address] [address] VIR GFR/1.73 sq M.predicted among non-blacks MDRD (S/P/Bld) [Vol rate/Area] 42 mL/min/{1.73_m2} Low >=60 [facility] Comment on above: Result Comment: eGFR not reported due to non-numeric value for Creatinine.Reported eGFR is based on theCKD-EPI 2020 equation that doesnot use a race coefficient. Performed By: #### C MP ####[facility] ([address] [place] [address] VIR Glucose [Mass/Vol] 105 mg/dL High 65-99 [facility] Comment on above: Performed By: #### C MP ####[facility] ([address] [place] [address] VIR Potassium [Moles/Vol] 3.8 mmol/L Normal 3.5-5.0 [facility] Comment on above: Performed By: #### C MP ####[facility] ([address] [place] [address] VIR Protein [Mass/Vol] 5.8 g/dL Low 6.0-8.0 [facility] Comment on above: Performed By: #### C MP ####[facility] ([address] [place] [address] VIR Sodium [Moles/Vol] 136 mmol/L Normal 134-146 [facility] Comment on above: Performed By: #### C MP ####[facility] ([address] [place] [address] VIR Urea nitrogen [Mass/Vol] 34 mg/dL High 5-27 [facility] Comment on above: Performed By: #### C MP ####[facility] ([address] [place] [address] VIR MAGNESIUMon 01-15-2025 Magnesium [Mass/Vol] 2.1 mg/dL Normal 1.8-2.6 [facility] Comment on above: Performed By: #### M G ####[facility] ([address] [place] [address] VIR POTASSIUMon 01-15-2025 Potassium [Moles/Vol] 4.3 mmol/L Normal 3.5-5.0 [facility] Comment on above: Performed By: #### K ####[facility] ([address] [place] [address] VIR PROCALCITONINon 01-15-2025 PROCALCITONIN 0.90 ng/mL High <0.05 [facility] Comment on above: Order Comment: <0.50 ng/mL - Low risk of severe sepsis and/or septic shock.<2.00 ng/mL - Recommend retesting within 6-24 hours.>2.00 ng/mL - High risk of sepsis and/or septic shock. Performed By: #### P DAVID ####[facility] ([address] [place] [address] VIR BASIC METABOLIC PANELon 07-3 Anion gap [Moles/Vol] 8 mmol/L Normal 5-15 [facility] Comment on above: Performed By: #### B MP ####[facility] ([address] [place] [address] VIR Calcium [Mass/Vol] 8.6 mg/dL Normal 8.5-10.5 [facility] Comment on above: Performed By: #### B MP ####[facility] ([address] [place] [address] VIR Chloride [Moles/Vol] 101 mmol/L Normal 98-109 [facility] Comment on above: Performed By: #### B MP ####[facility] ([address] [place] [address] VIR CO2 [Moles/Vol] 26 mmol/L Normal 22-32 [facility] Comment on above: Performed By: #### B MP ####[facility] ([address] [place] [address] VIR Creatinine [Mass/Vol] 1.45 mg/dL High 0.40-1.00 [facility] Comment on above: Result Comment: METH OD TRACEABLE TO IDMS STANDARD Performed By: #### B MP ####[facility] ([address] [place] [address] VIR GFR/1.73 sq M.predicted among non-blacks MDRD (S/P/Bld) [Vol rate/Area] 36 mL/min/{1.73_m2} Low >=60 [facility] Comment on above: Result Comment: eGFR not reported due to non-numeric value for Creatinine.Reported eGFR is based on theCKD-EPI 2020 equation that doesnot use a race coefficient. Performed By: #### B MP ####[facility] ([place] [address] [address] [place] [address] VIR Glucose [Mass/Vol] 73 mg/dL Normal 65-99 [facility] Comment on above: Performed By: #### B MP ####[facility] ([place] [address] [place] [address] VIR Potassium [Moles/Vol] 3.8 mmol/L Normal 3.5-5.0 [facility] Comment on above: Performed By: #### B MP ####[facility] ([address] [place] [address] VIR Sodium [Moles/Vol] 135 mmol/L Normal 134-146 [facility] Comment on above: Performed By: #### B MP ####[facility] ([address] [place] [address] VIR Urea nitrogen [Mass/Vol] 43 mg/dL High 5- [facility] Comment on above: Performed By: #### B MP ####[facility] ([address] [place] [address] VIR BEDSIDE GLUCOSEon 01-14-2025 Glucose [Mass/Vol] 91 mg/dL Normal 65-99 [facility] Comment on above: Performed By: #### B EDG ####[facility] ([place] [address] [place] [address] VIR Glucose [Mass/Vol] 127 mg/dL High 65-99 [facility] Comment on above: Performed By: #### B EDG ####[facility] ([place] [address] [place] [address] VIR Glucose [Mass/Vol] 107 mg/dL High 65-99 [facility] Comment on above: Performed By: #### B EDG ####[facility] ([place] [address] [place] [address] VIR Glucose [Mass/Vol] 58 mg/dL Low 65-99 [facility] Comment on above: Performed By: #### B EDG ####[facility] ([address] [place] [address] VIR CBC (NO DIFF)on 01-14-2025 Erythrocyte distribution width (RBC) [Ratio] 13.7 % Normal 11.5-15 [facility] Comment on above: Performed By: #### C BC ####[facility] ([address] [place] [address] VIR Hematocrit (Bld) [Volume fraction] 32.2 % Low 35-47 [facility] Comment on above: Performed By: #### C BC ####[facility] ([address] [place] [address] VIR Hemoglobin (Bld) [Mass/Vol] 10.5 g/dL Low 11.7-15.5 [facility] Comment on above: Performed By: #### C BC ####[facility] ([address] [place] [address] VIR MCH (RBC) [Entitic mass] 27.5 pg Normal 27-34 [facility] Comment on above: Performed By: #### C BC ####[facility] ([address] [place] [address] VIR MCHC (RBC) [Mass/Vol] 32.7 g/dL Normal 32-36 [facility] Comment on above: Performed By: #### C BC ####[facility] ([address] [place] [address] VIR MCV (RBC) [Entitic vol] 84 fL Normal 80-100 [facility] Comment on above: Performed By: #### C BC ####[facility] ([address] [place] [address] VIR Platelet mean volume (Bld) [Entitic vol] 7.3 fL Normal 7-12 [facility] Comment on above: Performed By: #### C BC ####[facility] ([address] [place] [address] VIR Platelets (Bld) [#/Vol] 301 10*3/uL Normal 150-450 [facility] Comment on above: Performed By: #### C BC ####[facility] ([address] [place] [address] VIR RBC COUNT 3.82 X10E12/L Normal 3.8-5.2 [facility] Comment on above: Performed By: #### C BC ####[facility] ([address] [place] [address] VIR WBC (Bld) [#/Vol] 20.2 10*3/uL High 4-11 [facility] Comment on above: Performed By: #### C BC ####[facility] ([address] [place] [address] VIR LACTATE W/ REFLEXon 01-15-20 25 LACTATE W/REFLEX 1.3 mmol/L Normal 0.4-2.0 [facility] Comment on above: Order Comment: Resul t did not trigger repeat Lactate,re-order if needed. Performed By: #### L ACTS ####[facility] ([address] [place] [address] VIR PROCALCITONINon 01-14-2025 PROCALCITONIN 1.57 ng/mL High <0.05 [facility] Comment on above: Order Comment: <0.50 ng/mL - Low risk of severe sepsis and/or septic shock.<2.00 ng/mL - Recommend retesting within 6-24 hours.>2.00 ng/mL - High risk of sepsis and/or septic shock. Performed By: #### P DAVID ####[facility])[address] [place] [address] VIR XR FOOT LT 2 VWSon 5 XR FOOT LT 2 VWS Normal [facility] XR FOOT RT 2 VWSon 5 XR FOOT RT 2 VWS Normal [facility] BLOOD CULTUREon 01-13-2025 Bacteria identified Cx Nom (Bld) CULTURE RESULTS NO GROWTH 5 DAYS Normal [facility] Comment on above: Order Comment: *SIRS Criteria: (must display 2 without other explanation)-Temperature < 36 or >38-Pulse >90-Resp rate >20-WBC less than 4K or greater than 12KRepeat blood cultures not needed:-To document that a blood culture is a contaminant when 1 of 2 bottles is positive for a common contaminant (already listed in Epic with the culture result)-To document clearance of gram negative bacteremia in patients with suspected urinary source who are improvingSuboptimal volume of blood collected, Results may be affected. Performed By: #### B C ####[facility] (TT)[address] [facility] [address], [place] [address] VIR CBC WITH AUTO DIFFERENTIALon 01-13-2025 Band form neutrophils/100 WBC (Bld) 2 % Normal [facility] Comment on above: Result Comment: This is an appended report. These results have been appended to a previously preliminary verified report. Performed By: #### C BCA ####[facility])[address] [facility] [place] [address] VIR CELLAVISION ATYPICAL LYMPHOCYTES RELATIVE PERCENT BY MANUAL COUNT 1 % Normal [facility] Comment on above: Result Comment: This is an appended report. These results have been appended to a previously preliminary verified report. Performed By: #### C BCA ####[facility])[address] [facility] [place] [address] VIR CELLAVISION DIFFERENTIAL TYPE CELLAVISION DIFFERENTIAL Normal [facility] Comment on above: Result Comment: This is an appended report. These results have been appended to a previously preliminary verified report. Performed By: #### C BCA ####[facility])[address] [place] [address] VIR CELLAVISION LYMPHOCYTES ABSOLUTE COUNT (10*3/UL) BY MANUAL COUNT 2.0 10*3/uL Normal 1.0-3.5 [facility] Comment on above: Result Comment: This is an appended report. These results have been appended to a previously preliminary verified report. Performed By: #### C BCA ####[facility])[address] [place] [address] VIR CELLAVISION LYMPHOCYTES RELATIVE PERCENT BY MANUAL COUNT 9 % Normal [facility] Comment on above: Result Comment: This is an appended report. These results have been appended to a previously preliminary verified report. Performed By: #### C BCA ####[facility] ([address] [address] VIR CELLAVISION MONOCYTES ABSOLUTE COUNT (10*3/UL) IN BLOOD BY MANUAL COUNT 1.8 10*3/uL High 0.0-0.9 [facility] Comment on above: Result Comment: This is an appended report. These results have been appended to a previously preliminary verified report. Performed By: #### C BCA ####[facility])[address] [place] [address] VIR CELLAVISION MONOCYTES RELATIVE PERCENT BY MANUAL COUNT 9 % Normal [facility] Comment on above: Result Comment: This is an appended report. These results have been appended to a previously preliminary verified report. Performed By: #### C BCA ####[facility])[address] [place] [address] VIR CELLAVISION NEUTROPHILS ABSOLUTE COUNT BY MANUAL COUNT 15.6 10*3/uL High 1.5-6.6 [facility] Comment on above: Result Comment: This is an appended report. These results have been appended to a previously preliminary verified report. Performed By: #### C BCA ####[facility] ([address] [address] VIR CELLAVISION NEUTROPHILS RELATIVE PERCENT BY MANUAL COUNT 79 % Normal [facility] Comment on above: Result Comment: This is an appended report. These results have been appended to a previously preliminary verified report. Performed By: #### C BCA ####[facility] ([address] [address] VIR Erythrocyte distribution width (RBC) [Ratio] 13.6 % Normal 11.5-15 [facility] Comment on above: Performed By: #### C BCA ####[facility] ([address] [address] VIR Hematocrit (Bld) [Volume fraction] 34.0 % Low 35-47 [facility] Comment on above: Performed By: #### C BCA ####[facility] ([address] [address] VIR Hemoglobin (Bld) [Mass/Vol] 10.9 g/dL Low 11.7-15.5 [facility] Comment on above: Performed By: #### C BCA ####[facility] ([address] [address] VIR MCH (RBC) [Entitic mass] 27.1 pg Normal 27-34 [facility] Comment on above: Performed By: #### C BCA ####[facility] ([address] [address] VIR MCHC (RBC) [Mass/Vol] 32.1 g/dL Normal 32-36 [facility] Comment on above: Performed By: #### C BCA ####[facility] ([address] [address] VIR MCV (RBC) [Entitic vol] 85 fL Normal 80-100 [facility] Comment on above: Performed By: #### C BCA ####[facility])[address] [place] [address] [place] [address] VIR Platelet mean volume (Bld) [Entitic vol] 7.0 fL Normal 7-12 [facility] Comment on above: Performed By: #### C BCA ####[facility])[address] [place] [address] [place] [address] VIR Platelets (Bld) [#/Vol] 377 10*3/uL Normal 150-450 [facility] Comment on above: Performed By: #### C BCA ####[facility] ([address] [place] [address] VIR RBC COUNT 4.02 X10E12/L Normal 3.8-5.2 [facility] Comment on above: Performed By: #### C BCA ####[facility] ([address] [place] [address] VIR WBC (Bld) [#/Vol] 19.3 10*3/uL High 4-11 [facility] Comment on above: Performed By: #### C BCA ####[facility] ([address] [place] [address] VIR CK TOTALon 01-13-2025 CPK 426 U/L High 24-170 [facility] Comment on above: Performed By: #### C PK ####[facility] ([address] [place] [address] VIR COMPREHENSIVE METABOLIC PANE José Luis 01-13-2025 Albumin [Mass/Vol] 2.7 g/dL Low 3.2-5.3 [facility] Comment on above: Performed By: #### C MP ####[facility] ([address] [place] [address] VIR ALP [Catalytic activity/Vol] 89 U/L Normal 39-130 [facility] Comment on above: Performed By: #### C MP ####[facility] ([place] [address] [place] [address] VIR ALT [Catalytic activity/Vol] 15 U/L Normal <=31 [facility] Comment on above: Performed By: #### C MP ####[facility] ([place] [address] [place] [address] VIR Anion gap [Moles/Vol] 7 mmol/L Normal 5-15 [facility] Comment on above: Performed By: #### C MP ####[facility] ([place] [address] [place] [address] VIR AST [Catalytic activity/Vol] 25 U/L Normal <=41 [facility] Comment on above: Performed By: #### C MP ####[facility] ([place] [address] [place] [address] VIR Bilirubin [Mass/Vol] 0.5 mg/dL Normal 0.3-1.2 [facility] Comment on above: Performed By: #### C MP ####[facility] ([place] [address] [place] [address] VIR Calcium [Mass/Vol] 8.6 mg/dL Normal 8.5-10.5 [facility] Comment on above: Performed By: #### C MP ####[facility] ([place] [address] [place] [address] VIR Chloride [Moles/Vol] 98 mmol/L Normal 98-109 [facility] Comment on above: Performed By: #### C MP ####[facility] ([place] [address] [place] [address] VIR CO2 [Moles/Vol] 26 mmol/L Normal 22-32 [facility] Comment on above: Performed By: #### C MP ####[facility] ([place] [address] [place] [address] VIR Creatinine [Mass/Vol] 1.51 mg/dL High 0.40-1.00 [facility] Comment on above: Result Comment: METH OD TRACEABLE TO IDMS STANDARD Performed By: #### C MP ####[facility])[address] [place] [address] [place] [address] VIR GFR/1.73 sq M.predicted among non-blacks MDRD (S/P/Bld) [Vol rate/Area] 34 mL/min/{1.73_m2} Low >=60 [facility] Comment on above: Result Comment: eGFR not reported due to non-numeric value for Creatinine.Reported eGFR is based on theCKD-EPI 2020 equation that doesnot use a race coefficient. Performed By: #### C MP ####[facility] ([address] [place] [address] VIR Glucose [Mass/Vol] 180 mg/dL High 65-99 [facility] Comment on above: Performed By: #### C MP ####[facility] ([address] [place] [address] VIR Potassium [Moles/Vol] 3.8 mmol/L Normal 3.5-5.0 [facility] Comment on above: Performed By: #### C MP ####[facility] ([address] [place] [address] VIR Protein [Mass/Vol] 6.5 g/dL Normal 6.0-8.0 [facility] Comment on above: Performed By: #### C MP ####[facility] ([address] [place] [address] VIR Sodium [Moles/Vol] 131 mmol/L Low 134-146 [facility] Comment on above: Performed By: #### C MP ####[facility] ([address] [place] [address] VIR Urea nitrogen [Mass/Vol] 49 mg/dL High 5-27 [facility] Comment on above: Performed By: #### C MP ####[facility] ([address] [place] [address] VIR LACTATE W/ REFLEXon 01-14-20 25 LACTATE W/REFLEX 1.7 mmol/L Normal 0.4-2.0 [facility] Comment on above: Order Comment: Resul t did not trigger repeat Lactate,re-order if needed. Performed By: #### L ACTS ####[facility] ([address] [address] VIR MAGNESIUMon 01-13-2025 Magnesium [Mass/Vol] 2.3 mg/dL Normal 1.8-2.6 [facility] Comment on above: Performed By: #### M G ####[facility] ([address] [address] VIR MYOGLOBIN, SERUMon 5 SERUM MYOGLOBIN 154.0 ng/mL High 14.3-65.8 [facility] Comment on above: Performed By: #### M YOG ####[facility] ([address] [address] VIR POCT NURSING URINE MACROSCOP IC UAon 01-13-2025 BILIRUBIN EZEQUIEL Negative Normal Negative [facility] Comment on above: Performed By: #### N UM ####[facility] ([address] [address] VIR BLOOD/HGB EZEQUIEL Large Abnormal Negative [facility] Comment on above: Performed By: #### N UM ####[facility] ([address] [address] VIR GLUCOSE EZEQUIEL Negative Normal Negative [facility] Comment on above: Performed By: #### N UM ####[facility] ([address] [address] VIR KETONES EZEQUIEL Negative Normal Negative [facility] Comment on above: Performed By: #### N UM ####[facility] ([address] [place] [address] VIR LEUKOCYTE ESTERASE EZEQUIEL Small Abnormal Negative [facility] Comment on above: Performed By: #### N UM ####[facility] ([address] [place] [address] VIR NITRITE EZEQUIEL Positive Abnormal Negative [facility] Comment on above: Performed By: #### N UM ####[facility] ([address] [place] [address] VIR PH EZEQUIEL 5.5 Normal 5.0, 6.0, 6.5, 7.0, 7.5, 8.0, 8.5, 5.5 [facility] Comment on above: Performed By: #### N UM ####[facility] ([address] [place] [address] VIR PROTEIN EZEQUIEL 30 mg/dL Abnormal Negative [facility] Comment on above: Performed By: #### N UM ####[facility] ([address] [place] [address] VIR SPECIFIC GRAVITY EZEQUIEL <=1.005 Abnormal 1.010, 1.015, 1.020, 1.025 [facility] Comment on above: Performed By: #### N UM ####[facility] ([address] [place] [address] VIR UROBILINOGEN EZEQUIEL 0.2 E.U./dL Normal [facility] Comment on above: Performed By: #### N UM ####[facility] ([address] [place] [address] VIR URINE CULTUREon 01-13-2025 Bacteria identified Cx Nom (U) CULTURE RESULTS PSEUDOMONAS AERUGINOSA >100,000 CFU/mL Pseudomonas aeruginosa KLEBSIELLA PNEUMONIAE >100,000 CFU/mL Klebsiella pneumoniae ESCHERICHIA COLI 10,000-50,000 CFU/mL Escherichia coli Normal [facility] Comment on above: Order Comment: The u rine of patients with catheters usually becomes colonized. Treatment may not be indicated. Correlate these findings with clinical presentation. If sepsis is suspected, contact laboratory for reporting AST results. Performed By: #### U C ####[facility] (TTH)[address] [facility] [address] [address] VIR No Panel Informationon 12-31 Applied to right leg wounds in clinic today. MANUALLY TRANSCRIBED RESULTS [facility] 12-17-2024 29 Addended by: SURJIT CORDOVA on: 12/17/2024 10:47 AM Modules accepted: Orders Normal [facility] Follow-Upon 12-17-2024 Follow-Up [id number] Rupa Gutierrez 1940 F Date Provider Department Center 12/17/2024 499-SURJIT CORDOVA ORTHO [facility]O Family History Family history unknown: Yes Level of Service:[address] [place] OFFICE/OUTPATIENT ESTABLISHED LOW MDM 20 MIN Reason for Visit and Comments: Pain [136] Follow-up [067920] Normal [facility] BEDSIDE GLUCOSEon 12-03-2024 Glucose [Mass/Vol] 209 mg/dL High 65-99 [facility] Comment on above: Performed By: #### B EDG ####[facility] ([address] [address] VIR CBC WITH AUTO DIFFERENTIALon 12-03-2024 BASOPHILS ABSOLUTE COUNT (10*3/UL) BY AUTOMATED COUNT 0.1 10*3/uL Normal 0.0-0.2 [facility] Comment on above: Performed By: #### C BCA ####[facility] ([address] [address] VIR BASOPHILS RELATIVE PERCENT BY AUTOMATED COUNT 0.8 % Normal [facility] Comment on above: Performed By: #### C BCA ####[facility] ([address] [place] [address] VIR CELLAVISION DIFFERENTIAL TYPE AUTOMATED DIFFERENTIAL Normal [facility] Comment on above: Performed By: #### C BCA ####[facility] ([address] [place] [address] VIR Eosinophils (Bld) [#/Vol] 0.4 10*3/uL Normal 0.0-0.4 [facility] Comment on above: Performed By: #### C BCA ####[facility] ([address] [place] [address] VIR EOSINOPHILS RELATIVE PERCENT BY AUTOMATED COUNT 4.0 % Normal [facility] Comment on above: Performed By: #### C BCA ####[facility] ([address] [place] [address] VIR Erythrocyte distribution width (RBC) [Ratio] 14.0 % Normal 11.5-15 [facility] Comment on above: Performed By: #### C BCA ####[facility] ([address] [address] VIR Hematocrit (Bld) [Volume fraction] 30.2 % Low 35-47 [facility] Comment on above: Performed By: #### C BCA ####[facility] ([address] [place] [address] VIR Hemoglobin (Bld) [Mass/Vol] 10.0 g/dL Low 11.7-15.5 [facility] Comment on above: Performed By: #### C BCA ####[facility] ([address] [place] [address] VIR LYMPHOCYTES ABSOLUTE COUNT (10*3/UL) BY AUTOMATED COUNT 3.1 10*3/uL Normal 1.0-3.5 [facility] Comment on above: Performed By: #### C BCA ####[facility] ([address] [place] [address] VIR LYMPHOCYTES RELATIVE PERCENT BY AUTOMATED COUNT 30.6 % Normal [facility] Comment on above: Performed By: #### C BCA ####[facility] ([address] [place] [address] VIR MCH (RBC) [Entitic mass] 29.9 pg Normal 27-34 [facility] Comment on above: Performed By: #### C BCA ####[facility] ([address] [place] [address] VIR MCHC (RBC) [Mass/Vol] 33.2 g/dL Normal 32-36 [facility] Comment on above: Performed By: #### C BCA ####[facility] ([address] [place] [address] VIR MCV (RBC) [Entitic vol] 90 fL Normal 80-100 [facility] Comment on above: Performed By: #### C BCA ####[facility] ([address] [place] [address] VIR MONOCYTES ABSOLUTE COUNT (10*3/UL) BY AUTOMATED COUNT 1.2 10*3/uL High 0.0-0.9 [facility] Comment on above: Performed By: #### C BCA ####[facility] ([address] [place] [address] VIR MONOCYTES RELATIVE PERCENT BY AUTOMATED COUNT 11.6 % Normal [facility] Comment on above: Performed By: #### C BCA ####[facility] ([address] [place] [address] VIR NEUTROPHILS ABSOLUTE COUNT BY AUTOMATED COUNT 5.3 10*3/uL Normal 1.5-6.6 [facility] Comment on above: Performed By: #### C BCA ####[facility] ([address] [place] [address] VIR NEUTROPHILS RELATIVE PERCENT BY AUTOMATED COUNT 53.0 % Normal [facility] Comment on above: Performed By: #### C BCA ####[facility] ([address] [place] [address] VIR Platelet mean volume (Bld) [Entitic vol] 8.2 fL Normal 7-12 [facility] Comment on above: Performed By: #### C BCA ####[facility] ([address] [place] [address] VIR Platelets (Bld) [#/Vol] 350 10*3/uL Normal 150-450 [facility] Comment on above: Performed By: #### C BCA ####[facility] ([address] [place] [address] VIR RBC COUNT 3.35 X10E12/L Low 3.8-5.2 [facility] Comment on above: Performed By: #### C BCA ####[facility] ([address] [place] [address] VIR WBC (Bld) [#/Vol] 10.0 10*3/uL Normal 4-11 [facility] Comment on above: Performed By: #### C BCA ####[facility] ([address] [place] [address] VIR COMPREHENSIVE METABOLIC PANE José Luis 12-03-2024 Albumin [Mass/Vol] 2.7 g/dL Low 3.2-5.3 [facility] Comment on above: Performed By: #### C MP ####[facility] ([address] [place] [address] VIR ALP [Catalytic activity/Vol] 78 U/L Normal 39-130 [facility] Comment on above: Performed By: #### C MP ####[facility] ([address] [place] [address] VIR ALT [Catalytic activity/Vol] 11 U/L Normal <=31 [facility] Comment on above: Performed By: #### C MP ####[facility] ([address] [place] [address] VIR Anion gap [Moles/Vol] 12 mmol/L Normal 5-15 [facility] Comment on above: Performed By: #### C MP ####[facility] ([address] [place] [address] VIR AST [Catalytic activity/Vol] 12 U/L Normal <=41 [facility] Comment on above: Performed By: #### C MP ####[facility] ([address] [place] [address] VIR Bilirubin [Mass/Vol] 0.7 mg/dL Normal 0.3-1.2 [facility] Comment on above: Performed By: #### C MP ####[facility] ([address] [place] [address] VIR Calcium [Mass/Vol] 9.1 mg/dL Normal 8.5-10.5 [facility] Comment on above: Performed By: #### C MP ####[facility] ([address] [place] [address] VIR Chloride [Moles/Vol] 107 mmol/L Normal 98-109 [facility] Comment on above: Performed By: #### C MP ####[facility] ([address] [place] [address] VIR CO2 [Moles/Vol] 24 mmol/L Normal 22-32 [facility] Comment on above: Performed By: #### C MP ####[facility] ([address] [place] [address] VIR Creatinine [Mass/Vol] 1.44 mg/dL High 0.40-1.00 [facility] Comment on above: Result Comment: METH OD TRACEABLE TO IDMS STANDARD Performed By: #### C MP ####[facility] ([address] [place] [address] VIR GFR/1.73 sq M.predicted among non-blacks MDRD (S/P/Bld) [Vol rate/Area] 36 mL/min/{1.73_m2} Low >=60 [facility] Comment on above: Result Comment: eGFR not reported due to non-numeric value for Creatinine.Reported eGFR is based on theCKD-EPI 2020 equation that doesnot use a race coefficient. Performed By: #### C MP ####[facility] ([address] [place] [address] VIR Glucose [Mass/Vol] 149 mg/dL High 65-99 [facility] Comment on above: Performed By: #### C MP ####[facility] ([address] [place] [address] VIR Potassium [Moles/Vol] 3.9 mmol/L Normal 3.5-5.0 [facility] Comment on above: Performed By: #### C MP ####[facility] ([address] [place] [address] VIR Protein [Mass/Vol] 6.8 g/dL Normal 6.0-8.0 [facility] Comment on above: Performed By: #### C MP ####[facility] ([address] [place] [address] VIR Sodium [Moles/Vol] 143 mmol/L Normal 134-146 [facility] Comment on above: Performed By: #### C MP ####[facility] ([address] [place] [address] VIR Urea nitrogen [Mass/Vol] 44 mg/dL High 5-27 [facility] Comment on above: Performed By: #### C MP ####[facility] ([address] [place] [address] VIR MAGNESIUMon 12-03-2024 Magnesium [Mass/Vol] 1.8 mg/dL Normal 1.8-2.6 [facility] Comment on above: Performed By: #### M G ####[facility] ([address] [place] [address] VIR BEDSIDE GLUCOSEon 2024 Glucose [Mass/Vol] 151 mg/dL High [address] [place] [address] Comment on above: Performed By: #### B EDG ####[facility] ([address] [place] [address] VIR Glucose [Mass/Vol] 213 mg/dL High [address] [place] [address] Comment on above: Performed By: #### B EDG ####[facility] ([address] [place] [address] VIR Glucose [Mass/Vol] 232 mg/dL High [address] [place] [address] Comment on above: Performed By: #### B EDG ####[facility] ([address] [place] [address] VIR CBC WITH AUTO DIFFERENTIALon 2024 BASOPHILS ABSOLUTE COUNT (10*3/UL) BY AUTOMATED COUNT 0.1 10*3/uL Normal 0.0-0.2 [facility] Comment on above: Performed By: #### C BCA ####[facility] ([address] [place] [address] VIR BASOPHILS RELATIVE PERCENT BY AUTOMATED COUNT 1.1 % Normal [facility] Comment on above: Performed By: #### C BCA ####[facility] ([address] [place] [address] VIR CELLAVISION DIFFERENTIAL TYPE AUTOMATED DIFFERENTIAL Normal [facility] Comment on above: Performed By: #### C BCA ####[facility] ([address] [place] [address] VIR Eosinophils (Bld) [#/Vol] 0.4 10*3/uL Normal 0.0-0.4 [facility] Comment on above: Performed By: #### C BCA ####[facility] ([address] [place] [address] VIR EOSINOPHILS RELATIVE PERCENT BY AUTOMATED COUNT 4.5 % Normal [facility] Comment on above: Performed By: #### C BCA ####[facility] ([address] [place] [address] VIR Erythrocyte distribution width (RBC) [Ratio] 14.1 % Normal 11.5-15 [facility] Comment on above: Performed By: #### C BCA ####[facility] ([address] [address] VIR Hematocrit (Bld) [Volume fraction] 28.1 % Low 35-47 [facility] Comment on above: Performed By: #### C BCA ####[facility] ([address] [place] [address] VIR Hemoglobin (Bld) [Mass/Vol] 9.3 g/dL Low 11.7-15.5 [facility] Comment on above: Performed By: #### C BCA ####[facility] ([address] [place] [address] VIR LYMPHOCYTES ABSOLUTE COUNT (10*3/UL) BY AUTOMATED COUNT 2.2 10*3/uL Normal 1.0-3.5 [facility] Comment on above: Performed By: #### C BCA ####[facility] ([address] [address] VIR LYMPHOCYTES RELATIVE PERCENT BY AUTOMATED COUNT 23.2 % Normal [facility] Comment on above: Performed By: #### C BCA ####[facility] ([address] [address] VIR MCH (RBC) [Entitic mass] 30.2 pg Normal 27-34 [facility] Comment on above: Performed By: #### C BCA ####[facility] ([address] [place] [address] VIR MCHC (RBC) [Mass/Vol] 33.1 g/dL Normal 32-36 [facility] Comment on above: Performed By: #### C BCA ####[facility] ([address] [place] [address] VIR MCV (RBC) [Entitic vol] 91 fL Normal 80-100 [facility] Comment on above: Performed By: #### C BCA ####[facility] ([address] [place] [address] VIR MONOCYTES ABSOLUTE COUNT (10*3/UL) BY AUTOMATED COUNT 1.2 10*3/uL High 0.0-0.9 [facility] Comment on above: Performed By: #### C BCA ####[facility] ([address] [address] VIR MONOCYTES RELATIVE PERCENT BY AUTOMATED COUNT 12.7 % Normal [facility] Comment on above: Performed By: #### C BCA ####[facility] ([address] [place] [address] VIR NEUTROPHILS ABSOLUTE COUNT BY AUTOMATED COUNT 5.5 10*3/uL Normal 1.5-6.6 [facility] Comment on above: Performed By: #### C BCA ####[facility] ([address] [address] VIR NEUTROPHILS RELATIVE PERCENT BY AUTOMATED COUNT 58.5 % Normal [facility] Comment on above: Performed By: #### C BCA ####[facility] ([address] [place] [address] VIR Platelet mean volume (Bld) [Entitic vol] 8.0 fL Normal 7-12 [facility] Comment on above: Performed By: #### C BCA ####[facility] ([address] [place] [address] VIR Platelets (Bld) [#/Vol] 352 10*3/uL Normal 150-450 [facility] Comment on above: Performed By: #### C BCA ####[facility] ([address] [place] [address] VIR RBC COUNT 3.08 X10E12/L Low 3.8-5.2 [facility] Comment on above: Performed By: #### C BCA ####[facility] ([address] [place] [address] VIR WBC (Bld) [#/Vol] 9.4 10*3/uL Normal 4-11 [facility] Comment on above: Performed By: #### C BCA ####[facility] ([address] [place] [address] VIR COMPREHENSIVE METABOLIC PANE José Luis 2024 Albumin [Mass/Vol] 2.6 g/dL Low 3.2-5.3 [facility] Comment on above: Performed By: #### C MP ####[facility] ([address] [place] [address] VIR ALP [Catalytic activity/Vol] 75 U/L Normal 39-130 [facility] Comment on above: Performed By: #### C MP ####[facility] ([address] [place] [address] VIR ALT [Catalytic activity/Vol] 10 U/L Normal <=31 [facility] Comment on above: Performed By: #### C MP ####[facility] ([address] [place] [address] VIR Anion gap [Moles/Vol] 12 mmol/L Normal 5-15 [facility] Comment on above: Performed By: #### C MP ####[facility] ([address] [place] [address] VIR AST [Catalytic activity/Vol] 12 U/L Normal <=41 [facility] Comment on above: Performed By: #### C MP ####[facility] ([address] [place] [address] VIR Bilirubin [Mass/Vol] 0.7 mg/dL Normal 0.3-1.2 [facility] Comment on above: Performed By: #### C MP ####[facility] ([address] [place] [address] VIR Calcium [Mass/Vol] 8.5 mg/dL Normal 8.5-10.5 [facility] Comment on above: Performed By: #### C MP ####[facility] ([address] [place] [address] VIR Chloride [Moles/Vol] 101 mmol/L Normal 98-109 [facility] Comment on above: Performed By: #### C MP ####[facility] ([address] [place] [address] VIR CO2 [Moles/Vol] 25 mmol/L Normal 22-32 [facility] Comment on above: Performed By: #### C MP ####[facility] ([address] [place] [address] VIR Creatinine [Mass/Vol] 1.82 mg/dL High 0.40-1.00 [facility] Comment on above: Result Comment: METH OD TRACEABLE TO IDMS STANDARD Performed By: #### C MP ####[facility] ([address] [place] [address] VIR GFR/1.73 sq M.predicted among non-blacks MDRD (S/P/Bld) [Vol rate/Area] 27 mL/min/{1.73_m2} Low >=60 [facility] Comment on above: Result Comment: eGFR not reported due to non-numeric value for Creatinine.Reported eGFR is based on theCKD-EPI 2020 equation that doesnot use a race coefficient. Performed By: #### C MP ####[facility] ([address] [place] [address] VIR Glucose [Mass/Vol] 173 mg/dL High 65-99 [facility] Comment on above: Performed By: #### C MP ####[facility] ([address] [place] [address] VIR Potassium [Moles/Vol] 4.1 mmol/L Normal 3.5-5.0 [facility] Comment on above: Performed By: #### C MP ####[facility] ([address] [place] [address] VIR Protein [Mass/Vol] 6.2 g/dL Normal 6.0-8.0 [facility] Comment on above: Performed By: #### C MP ####[facility] ([address] [place] [address] VIR Sodium [Moles/Vol] 138 mmol/L Normal 134-146 [facility] Comment on above: Performed By: #### C MP ####[facility] ([address] [place] [address] VIR Urea nitrogen [Mass/Vol] 66 mg/dL High 5-27 [facility] Comment on above: Performed By: #### C MP ####[facility] ([address] [place] [address] VIR MAGNESIUMon 2024 Magnesium [Mass/Vol] 2.0 mg/dL Normal 1.8-2.6 [facility] Comment on above: Performed By: #### M G ####[facility])[address] [place] [address] VIR PHOSPHORUSon 2024 Phosphate [Mass/Vol] 3.1 mg/dL Normal 2.4-4.9 [facility] Comment on above: Performed By: #### P HOS ####[facility] ([address] [place] [address] VIR XR ABDOMEN AP 1 VWon 025 XR ABDOMEN AP 1 VW Normal [facility] BEDSIDE GLUCOSEon 12-01-2024 Glucose [Mass/Vol] 175 mg/dL High 65-99 [facility] Comment on above: Performed By: #### B EDG ####[facility] ([address] [place] [address] VIR Glucose [Mass/Vol] 253 mg/dL High 65-99 [facility] Comment on above: Performed By: #### B EDG ####[facility] ([address] [place] [address] VIR Glucose [Mass/Vol] 204 mg/dL High 65-99 [facility] Comment on above: Performed By: #### B EDG ####[facility] ([address] [place] [address] VIR CBC WITH AUTO DIFFERENTIALon 12-01-2024 BASOPHILS ABSOLUTE COUNT (10*3/UL) BY AUTOMATED COUNT 0.1 10*3/uL Normal 0.0-0.2 [facility] Comment on above: Performed By: #### C BCA ####[facility] ([address] [place] [address] VIR BASOPHILS RELATIVE PERCENT BY AUTOMATED COUNT 0.8 % Normal [facility] Comment on above: Performed By: #### C BCA ####[facility] ([address] [place] [address] VIR CELLAVISION DIFFERENTIAL TYPE AUTOMATED DIFFERENTIAL Normal [facility] Comment on above: Performed By: #### C BCA ####[facility] ([address] [address] VIR Eosinophils (Bld) [#/Vol] 0.5 10*3/uL High 0.0-0.4 [facility] Comment on above: Performed By: #### C BCA ####[facility] ([address] [address] VIR EOSINOPHILS RELATIVE PERCENT BY AUTOMATED COUNT 4.7 % Normal [facility] Comment on above: Performed By: #### C BCA ####[facility] ([address] [address] VIR Erythrocyte distribution width (RBC) [Ratio] 14.0 % Normal 11.5-15 [facility] Comment on above: Performed By: #### C BCA ####[facility] ([address] [address] VIR Hematocrit (Bld) [Volume fraction] 29.2 % Low 35-47 [facility] Comment on above: Performed By: #### C BCA ####[facility] ([address] [address] VIR Hemoglobin (Bld) [Mass/Vol] 9.6 g/dL Low 11.7-15.5 [facility] Comment on above: Performed By: #### C BCA ####[facility] ([address] [address] VIR LYMPHOCYTES ABSOLUTE COUNT (10*3/UL) BY AUTOMATED COUNT 2.7 10*3/uL Normal 1.0-3.5 [facility] Comment on above: Performed By: #### C BCA ####[facility] ([address] [address] VIR LYMPHOCYTES RELATIVE PERCENT BY AUTOMATED COUNT 23.8 % Normal [facility] Comment on above: Performed By: #### C BCA ####[facility] ([address] [place] [address] VIR MCH (RBC) [Entitic mass] 29.5 pg Normal 27-34 [facility] Comment on above: Performed By: #### C BCA ####[facility] ([address] [place] [address] VIR MCHC (RBC) [Mass/Vol] 32.8 g/dL Normal 32-36 [facility] Comment on above: Performed By: #### C BCA ####[facility] ([address] [place] [address] VIR MCV (RBC) [Entitic vol] 90 fL Normal 80-100 [facility] Comment on above: Performed By: #### C BCA ####[facility] ([address] [address] VIR MONOCYTES ABSOLUTE COUNT (10*3/UL) BY AUTOMATED COUNT 1.5 10*3/uL High 0.0-0.9 [facility] Comment on above: Performed By: #### C BCA ####[facility] ([address] [address] VIR MONOCYTES RELATIVE PERCENT BY AUTOMATED COUNT 12.7 % Normal [facility] Comment on above: Performed By: #### C BCA ####[facility] ([address] [place] [address] VIR NEUTROPHILS ABSOLUTE COUNT BY AUTOMATED COUNT 6.7 10*3/uL High 1.5-6.6 [facility] Comment on above: Performed By: #### C BCA ####[facility] ([address] [address] VIR NEUTROPHILS RELATIVE PERCENT BY AUTOMATED COUNT 58.0 % Normal [facility] Comment on above: Performed By: #### C BCA ####[facility])[address] [place] [address] VIR Platelet mean volume (Bld) [Entitic vol] 8.1 fL Normal 7-12 [facility] Comment on above: Performed By: #### C BCA ####[facility] ([address] [place] [address] VIR Platelets (Bld) [#/Vol] 392 10*3/uL Normal 150-450 [facility] Comment on above: Performed By: #### C BCA ####[facility] ([address] [place] [address] VIR RBC COUNT 3.25 X10E12/L Low 3.8-5.2 [facility] Comment on above: Performed By: #### C BCA ####[facility] ([address] [place] [address] VIR WBC (Bld) [#/Vol] 11.5 10*3/uL High 4-11 [facility] Comment on above: Performed By: #### C BCA ####[facility] ([address] [place] [address] VIR COMPREHENSIVE METABOLIC PANE José Luis 12-01-2024 Albumin [Mass/Vol] 2.7 g/dL Low 3.2-5.3 [facility] Comment on above: Performed By: #### C MP ####[facility] ([address] [place] [address] VIR ALP [Catalytic activity/Vol] 78 U/L Normal 39-130 [facility] Comment on above: Performed By: #### C MP ####[facility] ([address] [place] [address] VIR ALT [Catalytic activity/Vol] 11 U/L Normal <=31 [facility] Comment on above: Performed By: #### C MP ####[facility])[address] [place] [address] VIR Anion gap [Moles/Vol] 9 mmol/L Normal 5-15 [facility] Comment on above: Performed By: #### C MP ####[facility] ([place] [address] [place] [address] VIR AST [Catalytic activity/Vol] 13 U/L Normal <=41 [facility] Comment on above: Performed By: #### C MP ####[facility] ([place] [address] [place] [address] VIR Bilirubin [Mass/Vol] 0.5 mg/dL Normal 0.3-1.2 [facility] Comment on above: Performed By: #### C MP ####[facility] ([address] [place] [address] VIR Calcium [Mass/Vol] 8.7 mg/dL Normal 8.5-10.5 [facility] Comment on above: Performed By: #### C MP ####[facility] ([address] [place] [address] VIR Chloride [Moles/Vol] 105 mmol/L Normal 98-109 [facility] Comment on above: Performed By: #### C MP ####[facility] ([place] [address] [place] [address] VIR CO2 [Moles/Vol] 26 mmol/L Normal 22-32 [facility] Comment on above: Performed By: #### C MP ####[facility] ([place] [address] [place] [address] VIR Creatinine [Mass/Vol] 2.09 mg/dL High 0.40-1.00 [facility] Comment on above: Result Comment: METH OD TRACEABLE TO IDMS STANDARD Performed By: #### C MP ####[facility] ([place])[address] [place] [address] [place] [address] VIR GFR/1.73 sq M.predicted among non-blacks MDRD (S/P/Bld) [Vol rate/Area] 23 mL/min/{1.73_m2} Low >=60 [facility] Comment on above: Result Comment: eGFR not reported due to non-numeric value for Creatinine.Reported eGFR is based on theCKD-EPI 2020 equation that doesnot use a race coefficient. Performed By: #### C MP ####[facility] ([facility])[address] [place] [address] [place] [address] VIR Glucose [Mass/Vol] 156 mg/dL High 65-99 [facility] Comment on above: Performed By: #### C MP ####[facility] ([address] [place] [address] VIR Potassium [Moles/Vol] 4.8 mmol/L Normal 3.5-5.0 [facility] Comment on above: Performed By: #### C MP ####[facility] ([address] [place] [address] VIR Protein [Mass/Vol] 6.3 g/dL Normal 6.0-8.0 [facility] Comment on above: Performed By: #### C MP ####[facility] ([address] [place] [address] VIR Sodium [Moles/Vol] 140 mmol/L Normal 134-146 [facility] Comment on above: Performed By: #### C MP ####[facility] ([address] [place] [address] VIR Urea nitrogen [Mass/Vol] 77 mg/dL High 5-27 [facility] Comment on above: Performed By: #### C MP ####[facility] ([address] [place] [address] BRAIN WO CONTon 5 CT BRAIN WO CONT Normal [facility] MAGNESIUMon 12-01-2024 Magnesium [Mass/Vol] 2.1 mg/dL Normal 1.8-2.6 [facility] Comment on above: Performed By: #### M G ####[facility] ([address] [place] [address] VIR PHOSPHORUSon 12-01-2024 Phosphate [Mass/Vol] 3.7 mg/dL Normal 2.4-4.9 [facility] Comment on above: Performed By: #### P HOS ####[facility] ([address] [address] VIR APTTon 11-30-2024 aPTT Coag (Bld) [Time] 30 s Normal 26-37 [facility] Comment on above: Performed By: #### P TT ####[facility] ([address] [address] VIR B-TYPE NATRIURETIC PEPTIDEon 11-30-2024 Natriuretic peptide B (Bld) [Mass/Vol] 65 pg/mL Normal <=100 [facility] Comment on above: Performed By: #### B KETTLE COOK ####[facility] ([address] [address] VIR BEDSIDE GLUCOSEon 11-30-2024 Glucose [Mass/Vol] 174 mg/dL High 65-99 [facility] Comment on above: Performed By: #### B EDG ####[facility] ([address] [place] [address] VIR Glucose [Mass/Vol] 223 mg/dL High 65-99 [facility] Comment on above: Performed By: #### B EDG ####[facility] ([address] [place] [address] VIR CBC WITH AUTO DIFFERENTIALon 11-30-2024 Band form neutrophils/100 WBC (Bld) 1 % Normal [facility] Comment on above: Result Comment: This is an appended report. These results have been appended to a previously preliminary verified report. Performed By: #### C BCA ####[facility] ([address] [address] VIR CELLAVISION BASOPHILS ABSOLUTE COUNT (10*3/UL) BY MANUAL COUNT 0.1 10*3/uL Normal 0.0-0.2 [facility] Comment on above: Result Comment: This is an appended report. These results have been appended to a previously preliminary verified report. Performed By: #### C BCA ####[facility] ([address] [address] VIR CELLAVISION BASOPHILS RELATIVE PERCENT BY MANUAL COUNT 1 % Normal [facility] Comment on above: Result Comment: This is an appended report. These results have been appended to a previously preliminary verified report. Performed By: #### C BCA ####[facility] ([address] [address] VIR CELLAVISION DIFFERENTIAL TYPE CELLAVISION DIFFERENTIAL Normal [facility] Comment on above: Result Comment: This is an appended report. These results have been appended to a previously preliminary verified report. Performed By: #### C BCA ####[facility] ([address] [address] VIR CELLAVISION EOSINOPHILS ABSOLUTE COUNT (10*3/UL) BY MANUAL COUNT 0.7 10*3/uL High 0.0-0.4 [facility] Comment on above: Result Comment: This is an appended report. These results have been appended to a previously preliminary verified report. Performed By: #### C BCA ####[facility] ([address] [address] VIR CELLAVISION EOSINOPHILS PERCENT BY MANUAL COUNT 6 % Normal [facility] Comment on above: Result Comment: This is an appended report. These results have been appended to a previously preliminary verified report. Performed By: #### C BCA ####[facility] [place] [address] VIR CELLAVISION LYMPHOCYTES ABSOLUTE COUNT (10*3/UL) BY MANUAL COUNT 4.1 10*3/uL High 1.0-3.5 [facility] Comment on above: Result Comment: This is an appended report. These results have been appended to a previously preliminary verified report. Performed By: #### C BCA ####[facility])[address] [place] [id number] VIR CELLAVISION LYMPHOCYTES RELATIVE PERCENT BY MANUAL COUNT 32 % Normal [facility] Comment on above: Result Comment: This is an appended report. These results have been appended to a previously preliminary verified report. Performed By: #### C BCA ####[facility] ([address] [address] VIR CELLAVISION MONOCYTES ABSOLUTE COUNT (10*3/UL) IN BLOOD BY MANUAL COUNT 1.1 10*3/uL High 0.0-0.9 [facility] Comment on above: Result Comment: This is an appended report. These results have been appended to a previously preliminary verified report. Performed By: #### C BCA ####[facility])[address] [place] [id number] VIR CELLAVISION MONOCYTES RELATIVE PERCENT BY MANUAL COUNT 9 % Normal [facility] Comment on above: Result Comment: This is an appended report. These results have been appended to a previously preliminary verified report. Performed By: #### C BCA ####[facility] ([address] [address] VIR CELLAVISION NEUTROPHILS ABSOLUTE COUNT BY MANUAL COUNT 6.6 10*3/uL Normal 1.5-6.6 [facility] Comment on above: Result Comment: This is an appended report. These results have been appended to a previously preliminary verified report. Performed By: #### C BCA ####[facility] [facility] [place] [address].[place] [address] VIR CELLAVISION NEUTROPHILS RELATIVE PERCENT BY MANUAL COUNT 52 % Normal [facility] Comment on above: Result Comment: This is an appended report. These results have been appended to a previously preliminary verified report. Performed By: #### C BCA ####[facility] ([address] [address] VIR CELLAVISION NUCLEATED RED BLOOD CELLS IN BLOOD BY LIGHT MICROSCOPY 1 Normal [facility] Comment on above: Result Comment: This is an appended report. These results have been appended to a previously preliminary verified report. Performed By: #### C BCA ####[facility] ([address] [address] VIR Erythrocyte distribution width (RBC) [Ratio] 14.2 % Normal 11.5-15 [facility] Comment on above: Performed By: #### C BCA ####[facility] ([address] [address] VIR Hematocrit (Bld) [Volume fraction] 31.8 % Low 35-47 [facility] Comment on above: Performed By: #### C BCA ####[facility] ([address] [address] VIR Hemoglobin (Bld) [Mass/Vol] 10.2 g/dL Low 11.7-15.5 [facility] Comment on above: Performed By: #### C BCA ####[facility] ([address] [address] VIR MCH (RBC) [Entitic mass] 29.1 pg Normal 27-34 [facility] Comment on above: Performed By: #### C BCA ####[facility] ([address] [place] [address] VIR MCHC (RBC) [Mass/Vol] 32.0 g/dL Normal 32-36 [facility] Comment on above: Performed By: #### C BCA ####[facility] ([address] [place] [address] VIR MCV (RBC) [Entitic vol] 91 fL Normal 80-100 [facility] Comment on above: Performed By: #### C BCA ####[facility] ([address] [place] [address] VIR Platelet mean volume (Bld) [Entitic vol] 8.0 fL Normal 7-12 [facility] Comment on above: Performed By: #### C BCA ####[facility] ([address] [place] [address] VIR Platelets (Bld) [#/Vol] 424 10*3/uL Normal 150-450 [facility] Comment on above: Performed By: #### C BCA ####[facility] ([address] [place] [address] VIR RBC COUNT 3.50 X10E12/L Low 3.8-5.2 [facility] Comment on above: Performed By: #### C BCA ####[facility] ([address] [place] [address] VIR WBC (Bld) [#/Vol] 12.7 10*3/uL High 4-11 [facility] Comment on above: Performed By: #### C BCA ####[facility] ([address] [place] [address] VIR COMPREHENSIVE METABOLIC PANE José Luis 11-30-2024 Albumin [Mass/Vol] 2.9 g/dL Low 3.2-5.3 [facility] Comment on above: Performed By: #### C MP ####[facility] ([address] [place] [address] VIR ALP [Catalytic activity/Vol] 88 U/L Normal 39-130 [facility] Comment on above: Performed By: #### C MP ####[facility] ([place] [address] [place] [address] VIR ALT [Catalytic activity/Vol] 11 U/L Normal <=31 [facility] Comment on above: Performed By: #### C MP ####[facility] ([address] [place] [address] VIR Anion gap [Moles/Vol] 11 mmol/L Normal 5-15 [facility] Comment on above: Performed By: #### C MP ####[facility] ([address] [place] [address] VIR AST [Catalytic activity/Vol] 13 U/L Normal <=41 [facility] Comment on above: Performed By: #### C MP ####[facility] ([address] [place] [address] VIR Bilirubin [Mass/Vol] 0.5 mg/dL Normal 0.3-1.2 [facility] Comment on above: Performed By: #### C MP ####[facility] ([address] [place] [address] VIR Calcium [Mass/Vol] 9.2 mg/dL Normal 8.5-10.5 [facility] Comment on above: Performed By: #### C MP ####[facility] ([address] [place] [address] VIR Chloride [Moles/Vol] 98 mmol/L Normal 98-109 [facility] Comment on above: Performed By: #### C MP ####[facility] ([address] [place] [address] VIR CO2 [Moles/Vol] 28 mmol/L Normal 22-32 [facility] Comment on above: Performed By: #### C MP ####[facility] ([address] [place] [address] VIR Creatinine [Mass/Vol] 2.74 mg/dL High 0.40-1.00 [facility] Comment on above: Result Comment: METH OD TRACEABLE TO IDMS STANDARD Performed By: #### C MP ####[facility] ([address] [place] [address] VIR GFR/1.73 sq M.predicted among non-blacks MDRD (S/P/Bld) [Vol rate/Area] 17 mL/min/{1.73_m2} Low >=60 [facility] Comment on above: Result Comment: eGFR not reported due to non-numeric value for Creatinine.Reported eGFR is based on theCKD-EPI 2020 equation that doesnot use a race coefficient. Performed By: #### C MP ####[facility] ([address] [place] [address] VIR Glucose [Mass/Vol] 218 mg/dL High 65-99 [facility] Comment on above: Performed By: #### C MP ####[facility] ([address] [place] [address] VIR Potassium [Moles/Vol] 5.3 mmol/L High 3.5-5.0 [facility] Comment on above: Performed By: #### C MP ####[facility] ([address] [place] [address] VIR Protein [Mass/Vol] 7.1 g/dL Normal 6.0-8.0 [facility] Comment on above: Performed By: #### C MP ####[facility] ([address] [place] [address] VIR Sodium [Moles/Vol] 137 mmol/L Normal 134-146 [facility] Comment on above: Performed By: #### C MP ####[facility] ([address] [place] [address] VIR Urea nitrogen [Mass/Vol] 91 mg/dL High 5-27 [facility] Comment on above: Performed By: #### C MP ####[facility] ([facility])[address] [address] VIR FERRITINon 11-30-2024 Ferritin [Mass/Vol] 151 ng/mL Normal 11-307 [facility] Comment on above: Performed By: #### F ERR ####[facility] ([facility])[address], [place] [address] VIR HEMOGLOBIN A1Con 11-30-2024 Glucose [Mass/Vol] 180 mg/dL Normal [facility] Comment on above: Performed By: #### H A1C ####[facility] ([facility])[address], [place] [address] VIR HbA1c (Bld) [Mass fraction] 7.9 % High 4.4-5.6 [facility] Comment on above: Result Comment: ADA Guidelines Result HgbA1c Normal : less than 5.7 % Prediabetes : 5.7 % to 6.4 % Diabetes : > 6.4 % Use with caution in patients with abnormal hemoglobin variants as the half-life of red blood cells and in vivo glycation rates are affected. Performed By: #### H A1C ####[facility] ([facility])[address], [place] [address] VIR IRON AND TIBCon 11-30-2024 Iron [Mass/Vol] 32 ug/dL Low 50-170 [facility] Comment on above: Performed By: #### F EPR ####[facility] ([facility])[address], [place] [address] VIR IRON BINDING 287 ug/dL Normal 250-425 [facility] Comment on above: Performed By: #### F EPR ####[facility] ([facility])[address], [place] [address] VIR IRON SATURATION 11 % SATURATION Low 15-50 [facility] Comment on above: Performed By: #### F EPR ####[facility] ([facility])[address], [place] [address] VIR Transferrin [Mass/Vol] 205 mg/dL Normal 168-336 [facility] Comment on above: Performed By: #### F EPR ####[facility] ([facility])[address], [place] [address] VIR LACTATE W/ REFLEXon 12-01-19 25 LACTATE W/REFLEX 1.3 mmol/L Normal 0.4-2.0 [facility] Comment on above: Order Comment: Resul t did not trigger repeat Lactate,re-order if needed. Performed By: #### L ACTS ####[address] [place] [address] VIR MAGNESIUMon 11-30-2024 Magnesium [Mass/Vol] 2.3 mg/dL Normal 1.8-2.6 [facility] Comment on above: Performed By: #### M G ####[facility] ([address] [place] [address] VIR PHOSPHORUSon 11-30-2024 Phosphate [Mass/Vol] 3.8 mg/dL Normal 2.4-4.9 [facility] Comment on above: Performed By: #### P HOS ####[facility] ([address] [place] [address] VIR POCT NURSING URINE MACROSCOP IC UAon 11-30-2024 BILIRUBIN EZEQUIEL Negative Normal Negative [facility] Comment on above: Performed By: #### N UM ####[facility] ([facility])[address] [place] [address] [place] [address] VIR BLOOD/HGB EZEQUIEL Large Abnormal Negative [facility] Comment on above: Performed By: #### N UM ####[facility] ([place] [address] [place] [address] VIR GLUCOSE EZEQUIEL Negative Normal Negative [facility] Comment on above: Performed By: #### N UM ####[facility] ([place] [address] [place] [address] VIR KETONES EZEQUIEL Negative Normal Negative [facility] Comment on above: Performed By: #### N UM ####[facility] ([place] [address] [place] [address] VIR LEUKOCYTE ESTERASE EZEQUIEL Small Abnormal Negative [facility] Comment on above: Performed By: #### N UM ####[facility] ([address] [place] [address] VIR NITRITE EZEQUIEL Negative Normal Negative [facility] Comment on above: Performed By: #### N UM ####[facility] ([address] [place] [address] VIR PH EZEQUIEL 5.5 Normal 5.0, 6.0, 6.5, 7.0, 7.5, 8.0, 8.5, 5.5 [facility] Comment on above: Performed By: #### N UM ####[facility] ([address] [place] [address] VIR PROTEIN EZEQUIEL 100 mg/dL Abnormal Negative [facility] Comment on above: Performed By: #### N UM ####[facility] ([address] [place] [address] VIR SPECIFIC GRAVITY EZEQUIEL 1.015 Normal 1.010, 1.015, 1.020, 1.025 [facility] Comment on above: Performed By: #### N UM ####[facility] ([address] [place] [address] VIR UROBILINOGEN EZEQUIEL 0.2 E.U./dL Normal [facility] Comment on above: Performed By: #### N UM ####[facility] ([address] [place] [address] VIR PROTIME AND INRon 11-30-2024 INR 1.1 Normal 0.9-1.2 [facility] Comment on above: Performed By: #### P INR ####[facility] ([address] [place] [address] VIR PT Coag (PPP) [Time] 12.5 s Normal 9.8-13.2 [facility] Comment on above: Performed By: #### P INR ####[facility] ([address] [address] VIR THYROID PROFILE INCLUDES TSH FT4on 11-30-2024 Free T4 [Mass/Vol] 1.33 ng/dL Normal 0.61-1.60 [facility] Comment on above: Performed By: #### T HYR ####[facility] ([address] [address] VIR TSH 3.09 uIU/mL Normal 0.49-4.67 [facility] Comment on above: Performed By: #### T HYR ####[facility] ([address] [place] [address] VIR TROP I, HIGH SENSITIVITY 1 H OURon 11-30-2024 TROPONIN I, HIGH SENSITIVITY 15 ng/L Normal <16 [facility] Comment on above: Performed By: #### T NIHS1 ####[facility] ([address] [place] [address] VIR TROPONIN I, HIGH SENSITIVITY 0 HOURon 11-30-2024 TROPONIN I, HIGH SENSITIVITY 15 ng/L Normal <16 [facility] Comment on above: Performed By: #### T NIHS0 ####[facility] ([address] [place] [address] VIR XR CHEST 1 VWon 11-30-2024 XR CHEST 1 VW Normal [facility] Debridementon 11-18-2024 JAM Meehan 11/18/2024 2:15 PM Debridement Performed by: JAM Meehan Authorized by: JAM Meehan Associated wounds: Wound 11/18/24 1 Diabetic Ulcer Calf Right;Medial Consent: Consent obtained: Verbal and written Consent given by: Patient Risks discussed: Yes Debridement Details: Performed by: KETTLE COOK Type: Sharp Level: Subcutaneous Tissue, Devitalized tissue and other material debrided: Subcutaneous tissue and fibrin Anesthesia administration: topical Anesthesia: EMLA Total Surface Area Debrided cm^2: 28.08 Specimen Taken: None Instrument: Curette Amount of bleeding: Small Bleeding Control: Pressure Response to treatment: Procedure was tolerated well Tissue Applied?: No MANUALLY TRANSCRIBED RESULTS [facility] [employer] CBC WITH AUTO DIFFERENTIALon 11-14-2024 BASOPHILS ABSOLUTE COUNT (10*3/UL) BY AUTOMATED COUNT 0.1 10*3/uL Normal 0.0-0.2 [facility] Comment on above: Performed By: #### C BCA ####[address] [address] VIR BASOPHILS RELATIVE PERCENT BY AUTOMATED COUNT 0.5 % Normal [facility] Comment on above: Performed By: #### C BCA ####[address] [address] VIR CELLAVISION DIFFERENTIAL TYPE AUTOMATED DIFFERENTIAL Normal [facility] Comment on above: Performed By: #### C BCA ####[facility] ([address] [address] VIR Eosinophils (Bld) [#/Vol] 0.2 10*3/uL Normal 0.0-0.4 [facility] Comment on above: Performed By: #### C BCA ####[facility] ([address] [address] VIR EOSINOPHILS RELATIVE PERCENT BY AUTOMATED COUNT 2.3 % Normal [facility] Comment on above: Performed By: #### C BCA ####[facility] ([address] [place] [address] VIR Erythrocyte distribution width (RBC) [Ratio] 13.1 % Normal 11.5-15 [facility] Comment on above: Performed By: #### C BCA ####[facility] ([address] [address] VIR Hematocrit (Bld) [Volume fraction] 26.8 % Low 35-47 [facility] Comment on above: Performed By: #### C BCA ####[facility] ([address] [address] VIR Hemoglobin (Bld) [Mass/Vol] 9.3 g/dL Low 11.7-15.5 [facility] Comment on above: Performed By: #### C BCA ####[facility] ([address] [address] VIR LYMPHOCYTES ABSOLUTE COUNT (10*3/UL) BY AUTOMATED COUNT 2.4 10*3/uL Normal 1.0-3.5 [facility] Comment on above: Performed By: #### C BCA ####[facility] ([address] [address] VIR LYMPHOCYTES RELATIVE PERCENT BY AUTOMATED COUNT 22.1 % Normal [facility] Comment on above: Performed By: #### C BCA ####[facility] ([address] [address] VIR MCH (RBC) [Entitic mass] 30.9 pg Normal 27-34 [facility] Comment on above: Performed By: #### C BCA ####[facility] ([address] [address] VIR MCHC (RBC) [Mass/Vol] 34.6 g/dL Normal 32-36 [facility] Comment on above: Performed By: #### C BCA ####[facility] ([address] [address] VIR MCV (RBC) [Entitic vol] 89 fL Normal 80-100 [facility] Comment on above: Performed By: #### C BCA ####[facility] ([address] [address] VIR MONOCYTES ABSOLUTE COUNT (10*3/UL) BY AUTOMATED COUNT 1.2 10*3/uL High 0.0-0.9 [facility] Comment on above: Performed By: #### C BCA ####[facility] ([address] [address] VIR MONOCYTES RELATIVE PERCENT BY AUTOMATED COUNT 11.1 % Normal [facility] Comment on above: Performed By: #### C BCA ####[facility] ([address] [address] VIR NEUTROPHILS ABSOLUTE COUNT BY AUTOMATED COUNT 6.8 10*3/uL High 1.5-6.6 [facility] Comment on above: Performed By: #### C BCA ####[facility] ([address] [address] VIR NEUTROPHILS RELATIVE PERCENT BY AUTOMATED COUNT 64.0 % Normal [facility] Comment on above: Performed By: #### C BCA ####[facility] ([address] [address] VIR Platelet mean volume (Bld) [Entitic vol] 8.1 fL Normal 7-12 [facility] Comment on above: Performed By: #### C BCA ####[facility] ([address] [address] VIR Platelets (Bld) [#/Vol] 119 10*3/uL Low 150-450 [facility] Comment on above: Performed By: #### C BCA ####[facility])[address] [place] [address] [place] [address] VIR RBC COUNT 3.00 X10E12/L Low 3.8-5.2 [facility] Comment on above: Performed By: #### C BCA ####[facility] ([address] [place] [address] VIR WBC (Bld) [#/Vol] 10.6 10*3/uL Normal 4-11 [facility] Comment on above: Performed By: #### C BCA ####[facility] ([address] [address] VIR CBC auto differentialon 10-17 Basophils (Bld) [#/Vol] 0.1 10*3/uL 0.0 - 0.2 10*3/uL [facility] Basophils/100 WBC (Bld) 0.5 % [facility] Differential cell count method Nom (Bld) AUTOMATED DIFFERENTIAL [facility] Eosinophils (Bld) [#/Vol] 0.2 10*3/uL 0.0 - 0.4 10*3/uL [facility] Eosinophils/100 WBC (Bld) 2.3 % [facility] Erythrocyte distribution width (RBC) [Ratio] 13.1 % 11.5 - 15 % [facility] Hematocrit (Bld) [Volume fraction] 26.8 % Low 35 - 47 % [facility] Hemoglobin (Bld) [Mass/Vol] 9.3 g/dL Low 11.7 - 15.5 g/dL [facility] Interpretation and review of laboratory results Abnormal [facility] Lymphocytes (Bld) [#/Vol] 2.4 10*3/uL 1.0 - 3.5 10*3/uL [facility] Lymphocytes/100 WBC (Bld) 22.1 % [facility] MCH (RBC) [Entitic mass] 30.9 pg 27 - 34 pg [facility] MCHC (RBC) [Mass/Vol] 34.6 g/dL 32 - 3 6 g/dL [facility] MCV (RBC) [Entitic vol] 89 fL 80 - 100 fL [facility] Monocytes (Bld) [#/Vol] 1.2 10*3/uL High 0.0 - 0.9 10*3/uL [facility] Monocytes/100 WBC (Bld) 11.1 % [facility] Neutrophils (Bld) [#/Vol] 6.8 10*3/uL High 1.5 - 6.6 10*3/uL [facility] Neutrophils/100 WBC (Bld) 64 % [facility] Platelet mean volume (Bld) [Entitic vol] 8.1 fL 7 - 12 fL [facility] Platelets (Bld) [#/Vol] 119 10*3/uL Low [facility] RBC (Bld) [#/Vol] 3 10*6/uL Low [facility] WBC LM Ql (Sput) 10.6 [facility] COMPREHENSIVE METABOLIC PANE José Luis 11-14-2024 Albumin [Mass/Vol] 2.7 g/dL Low 3.2-5.3 [facility] Comment on above: Performed By: #### C MP ####[facility] ([address] [address] VIR ALP [Catalytic activity/Vol] 65 U/L Normal 39-130 [facility] Comment on above: Performed By: #### C MP ####[facility] ([address] [address] VIR ALT [Catalytic activity/Vol] 12 U/L Normal <=31 [facility] Comment on above: Performed By: #### C MP ####[facility] ([address] [address] VIR Anion gap [Moles/Vol] 8 mmol/L Normal 5-15 [facility] Comment on above: Performed By: #### C MP ####[facility] ([place])[address] [place] [address] VIR AST [Catalytic activity/Vol] 12 U/L Normal <=41 [facility] Comment on above: Performed By: #### C MP ####[facility] ([address] [place] [address] VIR Bilirubin [Mass/Vol] 0.6 mg/dL Normal 0.3-1.2 [facility] Comment on above: Performed By: #### C MP ####[facility] ([address] [place] [address] VIR Calcium [Mass/Vol] 8.2 mg/dL Low 8.5-10.5 [facility] Comment on above: Performed By: #### C MP ####[facility] ([address] [place] [address] VIR Chloride [Moles/Vol] 100 mmol/L Normal 98-109 [facility] Comment on above: Performed By: #### C MP ####[facility] ([address] [place] [address] VIR CO2 [Moles/Vol] 28 mmol/L Normal 22-32 [facility] Comment on above: Performed By: #### C MP ####[facility] ([address] [place] [address] VIR Creatinine [Mass/Vol] 1.37 mg/dL High 0.40-1.00 [facility] Comment on above: Result Comment: METH OD TRACEABLE TO IDMS STANDARD Performed By: #### C MP ####[facility] ([address] [place] [address] VIR GFR/1.73 sq M.predicted among non-blacks MDRD (S/P/Bld) [Vol rate/Area] 38 mL/min/{1.73_m2} Low >=60 [facility] Comment on above: Result Comment: eGFR not reported due to non-numeric value for Creatinine.Reported eGFR is based on theCKD-EPI 2020 equation that doesnot use a race coefficient. Performed By: #### C MP ####[facility] ([address] [place] [address] VIR Glucose [Mass/Vol] 125 mg/dL High 65-99 [facility] Comment on above: Performed By: #### C MP ####[facility] ([address] [place] [address] VIR Potassium [Moles/Vol] 3.6 mmol/L Normal 3.5-5.0 [facility] Comment on above: Performed By: #### C MP ####[facility] ([address] [place] [address] VIR Protein [Mass/Vol] 6.7 g/dL Normal 6.0-8.0 [facility] Comment on above: Performed By: #### C MP ####[facility] ([address] [place] [address] VIR Sodium [Moles/Vol] 136 mmol/L Normal 134-146 [facility] Comment on above: Performed By: #### C MP ####[facility] ([address] [place] [address] VIR Urea nitrogen [Mass/Vol] 31 mg/dL High 5-27 [facility] Comment on above: Performed By: #### C MP ####[facility] ([address] [place] [address] VIR Comprehensive metabolic pane josé luis 11-14-2024 Albumin [Mass/Vol] 2.7 g/dL Low 3.2 - 5.3 g/dL [facility] ALP [Catalytic activity/Vol] 65 U/L 39 - 130 U/L [facility] ALT No additional P-5'-P [Catalytic activity/Vol] 12 U/L NINF - 31 U/L [facility] Anion gap [Moles/Vol] 8 mmol/L 5 - 15 mmol/L [facility] AST [Catalytic activity/Vol] 12 U/L NINF - 41 U/L [facility] Bilirubin [Mass/Vol] 0.6 mg/dL 0.3 - 1 .2 mg/dL [facility] Calcium [Mass/Vol] 8.2 mg/dL Low 8.5 - 10. 5 mg/dL [facility] Chloride [Moles/Vol] 100 mmol/L 98 - 10 9 mmol/L [facility] CO2 [Moles/Vol] 28 mmol/L 22 - 32 mmol/L [facility] Creatinine [Mass/Vol] 1.37 mg/dL High 0.40 - 1.00 mg/dL [facility] EGFR Non-Race Dependent 38 Low - PINF [facility] Glucose [Mass/Vol] 125 mg/dL High 65 - 99 mg/dL [facility] Interpretation and review of laboratory results Abnormal [facility] Potassium [Moles/Vol] 3.6 mmol/L 3.5 - 5.0 mmol/L [facility] Protein [Mass/Vol] 6.7 g/dL 6.0 - 8.0 g/dL [facility] Sodium [Moles/Vol] 136 mmol/L 134 - 146 mmol/L [facility] Urea nitrogen [Mass/Vol] 31 mg/dL High 5 - 27 mg/dL [facility] Light [place] 11-14-2024 Extra Tube Auto [facility] MAGNESIUMon 11-14-2024 Magnesium [Mass/Vol] 1.8 mg/dL Normal 1.8-2.6 [facility] Comment on above: Performed By: #### M G ####[facility] ([address] [address] Magnesiumon 11-14-2024 Interpretation and review of laboratory results Normal [facility] Magnesium [Mass/Vol] 1.8 mg/dL 1.8 - 2 .6 mg/dL [facility] No Panel Informationon 11-14 [facility] PHOSPHORUSon 11-14-2024 Phosphate [Mass/Vol] 2.3 mg/dL Low 2.4-4.9 [facility] Comment on above: Performed By: #### P HOS ####[facility] ([address] [address] VIR Phosphoruson 11-14-2024 Interpretation and review of laboratory results Abnormal [facility] Phosphate [Mass/Vol] 2.3 mg/dL Low 2.4 - 4 .9 mg/dL [facility] BEDSIDE GLUCOSEon 11-13-2024 Glucose [Mass/Vol] 243 mg/dL High 65-99 [facility] Comment on above: Performed By: #### B EDG ####[facility] ([address] [address] VIR Glucose [Mass/Vol] 197 mg/dL High 65-99 [facility] Comment on above: Performed By: #### B EDG ####[facility] ([address] [address] VIR Glucose [Mass/Vol] 158 mg/dL High 65-99 [facility] Comment on above: Performed By: #### B EDG ####[facility] ([address] [address] VIR Bacteria identified Aer cx N om (Bld)on 11-13-2024 Bacteria identified Aer cx Nom (Unsp spec) NO GROWTH 5 DAYS [facility] Bedside Glucose *Place/Obtai n serum glucose if >500 per glucometer.on 11-13-2024 Glucose [Mass/Vol] 243 mg/dL High 65 - 99 mg/dL [facility] Interpretation and review of laboratory results Abnormal [facility] Glucose [Mass/Vol] 197 mg/dL High 65 - 99 mg/dL [facility] Interpretation and review of laboratory results Abnormal [facility] Glucose [Mass/Vol] 158 mg/dL High 65 - 99 mg/dL [facility] Interpretation and review of laboratory results Abnormal [facility] CBC WITH AUTO DIFFERENTIALon 11-13-2024 BASOPHILS ABSOLUTE COUNT (10*3/UL) BY AUTOMATED COUNT 0.1 10*3/uL Normal 0.0-0.2 [facility] Comment on above: Performed By: #### C BCA ####[facility] ([address] [address] VIR BASOPHILS RELATIVE PERCENT BY AUTOMATED COUNT 1.4 % Normal [facility] Comment on above: Performed By: #### C BCA ####[facility] ([address] [address] VIR CELLAVISION DIFFERENTIAL TYPE AUTOMATED DIFFERENTIAL Normal [facility] Comment on above: Performed By: #### C BCA ####[facility] ([address] [address] VIR Eosinophils (Bld) [#/Vol] 0.3 10*3/uL Normal 0.0-0.4 [facility] Comment on above: Performed By: #### C BCA ####[facility] ([address] [address] VIR EOSINOPHILS RELATIVE PERCENT BY AUTOMATED COUNT 2.9 % Normal [facility] Comment on above: Performed By: #### C BCA ####[facility] ([address] [address] VIR Erythrocyte distribution width (RBC) [Ratio] 13.4 % Normal 11.5-15 [facility] Comment on above: Performed By: #### C BCA ####[facility] ([address] [address] VIR Hematocrit (Bld) [Volume fraction] 26.5 % Low 35-47 [facility] Comment on above: Performed By: #### C BCA ####[facility] ([address] [address] VIR Hemoglobin (Bld) [Mass/Vol] 9.0 g/dL Low 11.7-15.5 [facility] Comment on above: Performed By: #### C BCA ####[facility] ([address] [address] VIR LYMPHOCYTES ABSOLUTE COUNT (10*3/UL) BY AUTOMATED COUNT 2.4 10*3/uL Normal 1.0-3.5 [facility] Comment on above: Performed By: #### C BCA ####[facility] ([address] [address] VIR LYMPHOCYTES RELATIVE PERCENT BY AUTOMATED COUNT 22.6 % Normal [facility] Comment on above: Performed By: #### C BCA ####[facility] ([address] [address] VIR MCH (RBC) [Entitic mass] 30.4 pg Normal 27-34 [facility] Comment on above: Performed By: #### C BCA ####[facility] ([address] [address] VIR MCHC (RBC) [Mass/Vol] 33.8 g/dL Normal 32-36 [facility] Comment on above: Performed By: #### C BCA ####[facility] ([address] [place] [address] VIR MCV (RBC) [Entitic vol] 90 fL Normal 80-100 [facility] Comment on above: Performed By: #### C BCA ####[facility] ([address] [address] VIR MONOCYTES ABSOLUTE COUNT (10*3/UL) BY AUTOMATED COUNT 1.3 10*3/uL High 0.0-0.9 [facility] Comment on above: Performed By: #### C BCA ####[facility] ([address] [address] VIR MONOCYTES RELATIVE PERCENT BY AUTOMATED COUNT 12.1 % Normal [facility] Comment on above: Performed By: #### C BCA ####[facility] ([address] [place] [address] VIR NEUTROPHILS ABSOLUTE COUNT BY AUTOMATED COUNT 6.6 10*3/uL Normal 1.5-6.6 [facility] Comment on above: Performed By: #### C BCA ####[facility] ([address] [address] VIR NEUTROPHILS RELATIVE PERCENT BY AUTOMATED COUNT 61.0 % Normal [facility] Comment on above: Performed By: #### C BCA ####[facility] ([address] [address] VIR Platelet mean volume (Bld) [Entitic vol] 8.7 fL Normal 7-12 [facility] Comment on above: Performed By: #### C BCA ####[facility] ([address] [address] VIR Platelets (Bld) [#/Vol] 64 10*3/uL Low 150-450 [facility] Comment on above: Performed By: #### C BCA ####[facility] ([address] [address] VIR RBC COUNT 2.95 X10E12/L Low 3.8-5.2 [facility] Comment on above: Performed By: #### C BCA ####[facility] ([address] [address] VIR WBC (Bld) [#/Vol] 10.8 10*3/uL Normal 4-11 [facility] Comment on above: Performed By: #### C BCA ####[facility] ([address] [place] [address] VIR CBC auto differentialon 3 Basophils (Bld) [#/Vol] 0.1 10*3/uL 0.0 - 0.2 10*3/uL [facility] Basophils/100 WBC (Bld) 1.4 % [facility] Differential cell count method Nom (Bld) AUTOMATED DIFFERENTIAL [facility] Eosinophils (Bld) [#/Vol] 0.3 10*3/uL 0.0 - 0.4 10*3/uL [facility] Eosinophils/100 WBC (Bld) 2.9 % [facility] Erythrocyte distribution width (RBC) [Ratio] 13.4 % 11.5 - 15 % [facility] Hematocrit (Bld) [Volume fraction] 26.5 % Low 35 - 47 % [facility] Hemoglobin (Bld) [Mass/Vol] 9 g/dL Low 11.7 - 15.5 g/dL [facility] Interpretation and review of laboratory results Abnormal [facility] Lymphocytes (Bld) [#/Vol] 2.4 10*3/uL 1.0 - 3.5 10*3/uL [facility] Lymphocytes/100 WBC (Bld) 22.6 % [facility] MCH (RBC) [Entitic mass] 30.4 pg 27 - 34 pg [facility] MCHC (RBC) [Mass/Vol] 33.8 g/dL 32 - 3 6 g/dL [facility] MCV (RBC) [Entitic vol] 90 fL 80 - 100 fL [facility] Monocytes (Bld) [#/Vol] 1.3 10*3/uL High 0.0 - 0.9 10*3/uL [facility] Monocytes/100 WBC (Bld) 12.1 % [facility] Neutrophils (Bld) [#/Vol] 6.6 10*3/uL 1.5 - 6.6 10*3/uL [facility] Neutrophils/100 WBC (Bld) 61 % [facility] Platelet mean volume (Bld) [Entitic vol] 8.7 fL 7 - 12 fL [facility] Platelets (Bld) [#/Vol] 64 10*3/uL Low [facility] RBC (Bld) [#/Vol] 2.95 10*6/uL Low [facility] WBC LM Ql (Sput) 10.8 [facility] COMPREHENSIVE METABOLIC PANE José Luis 11-13-2024 Albumin [Mass/Vol] 2.6 g/dL Low 3.2-5.3 [facility] Comment on above: Performed By: #### C MP ####[facility] ([address] [place] [address] VIR ALP [Catalytic activity/Vol] 63 U/L Normal 39-130 [facility] Comment on above: Performed By: #### C MP ####[facility] ([address] [place] [address] VIR ALT [Catalytic activity/Vol] 11 U/L Normal <=31 [facility] Comment on above: Performed By: #### C MP ####[facility] ([address] [place] [address] VIR Anion gap [Moles/Vol] 7 mmol/L Normal 5-15 [facility] Comment on above: Performed By: #### C MP ####[facility] ([address] [place] [address] VIR AST [Catalytic activity/Vol] 13 U/L Normal <=41 [facility] Comment on above: Performed By: #### C MP ####[facility] ([address] [place] [address] VIR Bilirubin [Mass/Vol] 0.5 mg/dL Normal 0.3-1.2 [facility] Comment on above: Performed By: #### C MP ####[facility] ([address] [place] [address] VIR Calcium [Mass/Vol] 8.4 mg/dL Low 8.5-10.5 [facility] Comment on above: Performed By: #### C MP ####[facility] ([address] [place] [address] VIR Chloride [Moles/Vol] 103 mmol/L Normal 98-109 [facility] Comment on above: Performed By: #### C MP ####[facility] ([address] [place] [address] VIR CO2 [Moles/Vol] 27 mmol/L Normal 22-32 [facility] Comment on above: Performed By: #### C MP ####[facility] ([address] [place] [address] VIR Creatinine [Mass/Vol] 1.34 mg/dL High 0.40-1.00 [facility] Comment on above: Result Comment: METH OD TRACEABLE TO IDMS STANDARD Performed By: #### C MP ####[facility] ([address] [place] [address] VIR GFR/1.73 sq M.predicted among non-blacks MDRD (S/P/Bld) [Vol rate/Area] 39 mL/min/{1.73_m2} Low >=60 [facility] Comment on above: Result Comment: eGFR not reported due to non-numeric value for Creatinine.Reported eGFR is based on theCKD-EPI 2020 equation that doesnot use a race coefficient. Performed By: #### C MP ####[facility] ([address] [place] [address] VIR Glucose [Mass/Vol] 93 mg/dL Normal 65-99 [facility] Comment on above: Performed By: #### C MP ####[facility] ([address] [place] [address] VIR Potassium [Moles/Vol] 3.4 mmol/L Low 3.5-5.0 [facility] Comment on above: Performed By: #### C MP ####[facility] ([address] [place] [address] VIR Protein [Mass/Vol] 6.4 g/dL Normal 6.0-8.0 [facility] Comment on above: Performed By: #### C MP ####[facility] ([address] [address] VIR Sodium [Moles/Vol] 137 mmol/L Normal 134-146 [facility] Comment on above: Performed By: #### C MP ####[facility] ([address] [address] VIR Urea nitrogen [Mass/Vol] 31 mg/dL High 5-27 [facility] Comment on above: Performed By: #### C MP ####[facility] ([address] [address] VIR Comprehensive metabolic pane josé luis 11-13-2024 Albumin [Mass/Vol] 2.6 g/dL Low 3.2 - 5.3 g/dL [facility] ALP [Catalytic activity/Vol] 63 U/L 39 - 130 U/L [facility] ALT No additional P-5'-P [Catalytic activity/Vol] 11 U/L NINF - 31 U/L [facility] Anion gap [Moles/Vol] 7 mmol/L 5 - 15 mmol/L [facility] AST [Catalytic activity/Vol] 13 U/L NINF - 41 U/L [facility] Bilirubin [Mass/Vol] 0.5 mg/dL 0.3 - 1 .2 mg/dL [facility] Calcium [Mass/Vol] 8.4 mg/dL Low 8.5 - 10. 5 mg/dL [facility] Chloride [Moles/Vol] 103 mmol/L 98 - 10 9 mmol/L [facility] CO2 [Moles/Vol] 27 mmol/L 22 - 32 mmol/L [facility] Creatinine [Mass/Vol] 1.34 mg/dL High 0.40 - 1.00 mg/dL [facility] EGFR Non-Race Dependent 39 Low - PINF [facility] Glucose [Mass/Vol] 93 mg/dL 65 - 99 mg/dL [facility] Interpretation and review of laboratory results Abnormal [facility] Potassium [Moles/Vol] 3.4 mmol/L Low 3.5 - 5.0 mmol/L [facility] Protein [Mass/Vol] 6.4 g/dL 6.0 - 8.0 g/dL [facility] Sodium [Moles/Vol] 137 mmol/L 134 - 146 mmol/L [facility] Urea nitrogen [Mass/Vol] 31 mg/dL High 5 - 27 mg/dL [facility] ECG 12 leadon 11-13-2024 TRACEMASTERVUE [facility] Light Blue Topon 11-13-2024 Extra Tube Auto Resulted [facility] MAGNESIUMon 11-13-2024 Magnesium [Mass/Vol] 1.9 mg/dL Normal 1.8-2.6 [facility] Comment on above: Performed By: #### M G ####[address] [address] VIR Magnesiumon 11-13-2024 Interpretation and review of laboratory results Normal [facility] Magnesium [Mass/Vol] 1.9 mg/dL 1.8 - 2 .6 mg/dL [facility] No Panel Informationon 11-13 [facility] PHOSPHORUSon 11-13-2024 Phosphate [Mass/Vol] 2.7 mg/dL Normal 2.4-4.9 [facility] Comment on above: Performed By: #### P HOS ####[address] [address] VIR POTASSIUMon 11-13-2024 Potassium [Moles/Vol] 3.6 mmol/L Normal 3.5-5.0 [facility] Comment on above: Performed By: #### K ####[address] [address] VIR Phosphoruson 11-13-2024 Interpretation and review of laboratory results Normal [facility] Phosphate [Mass/Vol] 2.7 mg/dL 2.4 - 4 .9 mg/dL [facility] Potassiumon 11-13-2024 Interpretation and review of laboratory results Normal [facility] Potassium [Moles/Vol] 3.6 mmol/L 3.5 - 5.0 mmol/L [facility] BEDSIDE GLUCOSEon 11-12-2024 Glucose [Mass/Vol] 201 mg/dL High 65-99 [facility] Comment on above: Performed By: #### B EDG ####[facility] [place] [address] [place] [address] VIR Glucose [Mass/Vol] 278 mg/dL High 65-99 [facility] Comment on above: Performed By: #### B EDG ####[facility] ([address] [place] [address] VIR Glucose [Mass/Vol] 147 mg/dL High 65-99 [facility] Comment on above: Performed By: #### B EDG ####[facility])[address] [place] [address] [place] [address] VIR Bacteria identified Aer cx N om (Wound)Ordered By: Yony Lopez on 11-12-2024 Bacteria identified Aer cx Nom (Unsp spec) Many Pseudomonas aeruginosa Abnormal [facility] Interpretation and review of laboratory results Abnormal [facility] Microscopic observation Gram stain Nom (Unsp spec) 10 to 24 White Blood Cells/LPF Abnormal [facility] Microscopic observation Gram stain Nom (Unsp spec) 0 to 1 Squamous Epithelial Cells/LPF Abnormal [facility] Microscopic observation Gram stain Nom (Unsp spec) Negative Abnormal [facility] Bedside Glucose *Place/Obtai n serum glucose if >500 per glucometer.on 11-12-2024 Glucose [Mass/Vol] 201 mg/dL High 65 - 99 mg/dL [facility] Interpretation and review of laboratory results Abnormal [facility] Glucose [Mass/Vol] 147 mg/dL High 65 - 99 mg/dL [facility] Interpretation and review of laboratory results Abnormal [facility] Glucose [Mass/Vol] 278 mg/dL High 65 - 99 mg/dL [facility] Interpretation and review of laboratory results Abnormal [facility] CBC WITH AUTO DIFFERENTIALon 11-12-2024 BASOPHILS ABSOLUTE COUNT (10*3/UL) BY AUTOMATED COUNT 0.1 10*3/uL Normal 0.0-0.2 [facility] Comment on above: Performed By: #### C BCA ####[facility] ([address] [address] VIR BASOPHILS RELATIVE PERCENT BY AUTOMATED COUNT 0.8 % Normal [facility] Comment on above: Performed By: #### C BCA ####[facility] ([address] [address] VIR CELLAVISION DIFFERENTIAL TYPE AUTOMATED DIFFERENTIAL Normal [facility] Comment on above: Performed By: #### C BCA ####[facility] ([address] [address] VIR Eosinophils (Bld) [#/Vol] 0.3 10*3/uL Normal 0.0-0.4 [facility] Comment on above: Performed By: #### C BCA ####[facility] ([address] [address] VIR EOSINOPHILS RELATIVE PERCENT BY AUTOMATED COUNT 2.6 % Normal [facility] Comment on above: Performed By: #### C BCA ####[facility] ([address] [address] VIR Erythrocyte distribution width (RBC) [Ratio] 13.4 % Normal 11.5-15 [facility] Comment on above: Performed By: #### C BCA ####[facility] ([address] [address] VIR Hematocrit (Bld) [Volume fraction] 25.1 % Low 35-47 [facility] Comment on above: Performed By: #### C BCA ####[facility] ([address] [address] VIR Hemoglobin (Bld) [Mass/Vol] 8.6 g/dL Low 11.7-15.5 [facility] Comment on above: Performed By: #### C BCA ####[facility] ([address] [address] VIR LYMPHOCYTES ABSOLUTE COUNT (10*3/UL) BY AUTOMATED COUNT 2.4 10*3/uL Normal 1.0-3.5 [facility] Comment on above: Performed By: #### C BCA ####[facility] ([address] [address] VIR LYMPHOCYTES RELATIVE PERCENT BY AUTOMATED COUNT 21.9 % Normal [facility] Comment on above: Performed By: #### C BCA ####[facility] ([address] [address] VIR MCH (RBC) [Entitic mass] 30.7 pg Normal 27-34 [facility] Comment on above: Performed By: #### C BCA ####[facility] ([address] [address] VIR MCHC (RBC) [Mass/Vol] 34.1 g/dL Normal 32-36 [facility] Comment on above: Performed By: #### C BCA ####[facility] ([address] [address] VIR MCV (RBC) [Entitic vol] 90 fL Normal 80-100 [facility] Comment on above: Performed By: #### C BCA ####[facility] ([address] [address] VIR MONOCYTES ABSOLUTE COUNT (10*3/UL) BY AUTOMATED COUNT 1.5 10*3/uL High 0.0-0.9 [facility] Comment on above: Performed By: #### C BCA ####[facility] ([address] [address] VIR MONOCYTES RELATIVE PERCENT BY AUTOMATED COUNT 13.9 % Normal [facility] Comment on above: Performed By: #### C BCA ####[facility] ([address] [address] VIR NEUTROPHILS ABSOLUTE COUNT BY AUTOMATED COUNT 6.7 10*3/uL High 1.5-6.6 [facility] Comment on above: Performed By: #### C BCA ####[facility] ([address] [address] VIR NEUTROPHILS RELATIVE PERCENT BY AUTOMATED COUNT 60.8 % Normal [facility] Comment on above: Performed By: #### C BCA ####[facility] ([address] [address] VIR Platelet mean volume (Bld) [Entitic vol] 9.4 fL Normal 7-12 [facility] Comment on above: Performed By: #### C BCA ####[facility] ([address] [address] VIR Platelets (Bld) [#/Vol] 37 10*3/uL Low 150-450 [facility] Comment on above: Performed By: #### C BCA ####[facility] ([address] [address] VIR RBC COUNT 2.79 X10E12/L Low 3.8-5.2 [facility] Comment on above: Performed By: #### C BCA ####[facility] ([address] [address] VIR WBC (Bld) [#/Vol] 11.1 10*3/uL High 4-11 [facility] Comment on above: Performed By: #### C BCA ####[facility])[address] [place] [address] VIR CBC auto differentialon 10-16 Basophils (Bld) [#/Vol] 0.1 10*3/uL 0.0 - 0.2 10*3/uL [facility] Basophils/100 WBC (Bld) 0.8 % [facility] Differential cell count method Nom (Bld) AUTOMATED DIFFERENTIAL [facility] Eosinophils (Bld) [#/Vol] 0.3 10*3/uL 0.0 - 0.4 10*3/uL [facility] Eosinophils/100 WBC (Bld) 2.6 % [facility] Erythrocyte distribution width (RBC) [Ratio] 13.4 % 11.5 - 15 % [facility] Hematocrit (Bld) [Volume fraction] 25.1 % Low 35 - 47 % [facility] Hemoglobin (Bld) [Mass/Vol] 8.6 g/dL Low 11.7 - 15.5 g/dL [facility] Interpretation and review of laboratory results Abnormal [facility] Lymphocytes (Bld) [#/Vol] 2.4 10*3/uL 1.0 - 3.5 10*3/uL [facility] Lymphocytes/100 WBC (Bld) 21.9 % [facility] MCH (RBC) [Entitic mass] 30.7 pg 27 - 34 pg [facility] MCHC (RBC) [Mass/Vol] 34.1 g/dL 32 - 3 6 g/dL [facility] MCV (RBC) [Entitic vol] 90 fL 80 - 100 fL [facility] Monocytes (Bld) [#/Vol] 1.5 10*3/uL High 0.0 - 0.9 10*3/uL [facility] Monocytes/100 WBC (Bld) 13.9 % [facility] Neutrophils (Bld) [#/Vol] 6.7 10*3/uL High 1.5 - 6.6 10*3/uL [facility] Neutrophils/100 WBC (Bld) 60.8 % [facility] Platelet mean volume (Bld) [Entitic vol] 9.4 fL 7 - 12 fL [facility] Platelets (Bld) [#/Vol] 37 10*3/uL Low [facility] RBC (Bld) [#/Vol] 2.79 10*6/uL Low [facility] WBC LM Ql (Sput) 11.1 High [facility] COMPREHENSIVE METABOLIC PANE José Luis 11-12-2024 Albumin [Mass/Vol] 2.6 g/dL Low 3.2-5.3 [facility] Comment on above: Performed By: #### C MP ####[facility])[address] [place], [place] [address] [address] VIR ALP [Catalytic activity/Vol] 63 U/L Normal 39-130 [facility] Comment on above: Performed By: #### C MP ####[facility] ([address] [place] [address] VIR ALT [Catalytic activity/Vol] 14 U/L Normal <=31 [facility] Comment on above: Performed By: #### C MP ####[facility] ([address] [place] [address] VIR Anion gap [Moles/Vol] 0 mmol/L Low 5-15 [facility] Comment on above: Performed By: #### C MP ####[facility] ([address] [place] [address] VIR AST [Catalytic activity/Vol] 12 U/L Normal <=41 [facility] Comment on above: Performed By: #### C MP ####[facility] ([address] [place] [address] VIR Bilirubin [Mass/Vol] 0.6 mg/dL Normal 0.3-1.2 [facility] Comment on above: Performed By: #### C MP ####[facility] ([address] [place] [address] VIR Calcium [Mass/Vol] 7.9 mg/dL Low 8.5-10.5 [facility] Comment on above: Performed By: #### C MP ####[facility] ([address] [place] [address] VIR Chloride [Moles/Vol] 109 mmol/L Normal 98-109 [facility] Comment on above: Performed By: #### C MP ####[facility] ([address] [place] [address] VIR CO2 [Moles/Vol] 25 mmol/L Normal 22-32 [facility] Comment on above: Performed By: #### C MP ####[facility] ([address] [address] VIR Creatinine [Mass/Vol] 1.39 mg/dL High 0.40-1.00 [facility] Comment on above: Result Comment: METH OD TRACEABLE TO IDMS STANDARD Performed By: #### C MP ####[facility] ([address] [address] VIR GFR/1.73 sq M.predicted among non-blacks MDRD (S/P/Bld) [Vol rate/Area] 38 mL/min/{1.73_m2} Low >=60 [facility] Comment on above: Result Comment: eGFR not reported due to non-numeric value for Creatinine. Performed By: #### C MP ####[facility] ([address] [place] [address] VIR Glucose [Mass/Vol] 73 mg/dL Normal 65-99 [facility] Comment on above: Performed By: #### C MP ####[facility] ([address] [place] [address] VIR Potassium [Moles/Vol] 3.5 mmol/L Normal 3.5-5.0 [facility] Comment on above: Performed By: #### C MP ####[facility] ([place])[address] [place] [address] [place] [address] VIR Protein [Mass/Vol] 6.3 g/dL Normal 6.0-8.0 [facility] Comment on above: Performed By: #### C MP ####[facility] ([address] [place] [address] VIR Sodium [Moles/Vol] 134 mmol/L Normal 134-146 [facility] Comment on above: Performed By: #### C MP ####[facility] ([address] [place] [address] VIR Urea nitrogen [Mass/Vol] 37 mg/dL High 5-27 [facility] Comment on above: Performed By: #### C MP ####[facility] ([address] [place] [address] VIR Comprehensive metabolic pane josé luis 11-12-2024 Albumin [Mass/Vol] 2.6 g/dL Low 3.2 - 5.3 g/dL [facility] ALP [Catalytic activity/Vol] 63 U/L 39 - 130 U/L [facility] ALT No additional P-5'-P [Catalytic activity/Vol] 14 U/L NINF - 31 U/L [facility] Anion gap [Moles/Vol] 0 mmol/L Low 5 - 15 mmol/L [facility] AST [Catalytic activity/Vol] 12 U/L NINF - 41 U/L [facility] Bilirubin [Mass/Vol] 0.6 mg/dL 0.3 - 1 .2 mg/dL [facility] Calcium [Mass/Vol] 7.9 mg/dL Low 8.5 - 10. 5 mg/dL [facility] Chloride [Moles/Vol] 109 mmol/L 98 - 10 9 mmol/L [facility] CO2 [Moles/Vol] 25 mmol/L 22 - 32 mmol/L [facility] Creatinine [Mass/Vol] 1.39 mg/dL High 0.40 - 1.00 mg/dL [facility] EGFR Non-Race Dependent 38 Low - PINF [facility] Glucose [Mass/Vol] 73 mg/dL 65 - 99 mg/dL [facility] Interpretation and review of laboratory results Abnormal [facility] Potassium [Moles/Vol] 3.5 mmol/L 3.5 - 5.0 mmol/L [facility] Protein [Mass/Vol] 6.3 g/dL 6.0 - 8.0 g/dL [facility] Sodium [Moles/Vol] 134 mmol/L 134 - 146 mmol/L [facility] Urea nitrogen [Mass/Vol] 37 mg/dL High 5 - 27 mg/dL [facility] Light Blue Topon 11-12-2024 Extra Tube Auto Resulted [facility] MAGNESIUMon 11-12-2024 Magnesium [Mass/Vol] 2.2 mg/dL Normal 1.8-2.6 [facility] Comment on above: Performed By: #### M G ####[facility] ([address] [address] VIR Magnesiumon 11-12-2024 Interpretation and review of laboratory results Normal [facility] Magnesium [Mass/Vol] 2.2 mg/dL 1.8 - 2 .6 mg/dL [facility] No Panel Informationon 11-12 [facility] PHOSPHORUSon 11-12-2024 Phosphate [Mass/Vol] 2.8 mg/dL Normal 2.4-4.9 [facility] Comment on above: Performed By: #### P HOS ####[facility] ([address] [address] VIR Phosphoruson 11-12-2024 Interpretation and review of laboratory results Normal [facility] Phosphate [Mass/Vol] 2.8 mg/dL 2.4 - 4 .9 mg/dL [facility] BEDSIDE GLUCOSEon 11-11-2024 Glucose [Mass/Vol] 248 mg/dL High 65-99 [facility] Comment on above: Performed By: #### B EDG ####[facility] ([address] [place] [address] VIR Glucose [Mass/Vol] 214 mg/dL High 65-99 [facility] Comment on above: Performed By: #### B EDG ####[facility] [place] [address] [place] [address] VIR Glucose [Mass/Vol] 240 mg/dL High 65-99 [facility] Comment on above: Performed By: #### B EDG ####[facility] [place] [address] [place] [address] VIR Bacteria identified Aer cx N om (Wound)on 11-11-2024 Bacteria identified Aer cx Nom (Unsp spec) Many Pseudomonas aeruginosa Abnormal [facility] Interpretation and review of laboratory results Abnormal [facility] Microscopic observation Gram stain Nom (Unsp spec) 10 to 24 White Blood Cells/LPF Abnormal [facility] Microscopic observation Gram stain Nom (Unsp spec) 0 to 1 Squamous Epithelial Cells/LPF Abnormal [facility] Microscopic observation Gram stain Nom (Unsp spec) Negative Abnormal [facility] Bedside Glucose *Place/Obtai n serum glucose if >500 per glucometer.on 11-11-2024 Glucose [Mass/Vol] 214 mg/dL High 65 - 99 mg/dL [facility] Glucose [Mass/Vol] 248 mg/dL High 65 - 99 mg/dL [facility] Glucose [Mass/Vol] 240 mg/dL High 65 - 99 mg/dL [facility] Interpretation and review of laboratory results Abnormal [facility] C-REACTIVE PROTEINon 025 C REACTIVE PROTEIN 10.9 mg/dL High <=0.7 [facility] Comment on above: Performed By: #### C RP ####[facility])[address] [place] [address] [place] [address] VIR C-reactive proteinon 025 CRP [Mass/Vol] 10.9 mg/dL High NINF - 0.7 mg/dL [facility] Interpretation and review of laboratory results Abnormal [facility] CBC WITH AUTO DIFFERENTIALon 11-11-2024 BASOPHILS ABSOLUTE COUNT (10*3/UL) BY AUTOMATED COUNT 0.1 10*3/uL Normal 0.0-0.2 [facility] Comment on above: Performed By: #### C BCA ####[facility])[address] [place] [address] VIR BASOPHILS RELATIVE PERCENT BY AUTOMATED COUNT 0.8 % Normal [facility] Comment on above: Performed By: #### C BCA ####[facility] ([address] [address] VIR CELLAVISION DIFFERENTIAL TYPE AUTOMATED DIFFERENTIAL Normal [facility] Comment on above: Performed By: #### C BCA ####[facility] ([address] [address] VIR Eosinophils (Bld) [#/Vol] 0.3 10*3/uL Normal 0.0-0.4 [facility] Comment on above: Performed By: #### C BCA ####[facility] ([address] [address] VIR EOSINOPHILS RELATIVE PERCENT BY AUTOMATED COUNT 3.4 % Normal [facility] Comment on above: Performed By: #### C BCA ####[facility] ([address] [address] VIR Erythrocyte distribution width (RBC) [Ratio] 13.5 % Normal 11.5-15 [facility] Comment on above: Performed By: #### C BCA ####[facility] ([address] [address] VIR Hematocrit (Bld) [Volume fraction] 25.8 % Low 35-47 [facility] Comment on above: Performed By: #### C BCA ####[facility] ([address] [address] VIR Hemoglobin (Bld) [Mass/Vol] 8.7 g/dL Low 11.7-15.5 [facility] Comment on above: Performed By: #### C BCA ####[facility] ([address] [address] VIR LYMPHOCYTES ABSOLUTE COUNT (10*3/UL) BY AUTOMATED COUNT 2.0 10*3/uL Normal 1.0-3.5 [facility] Comment on above: Performed By: #### C BCA ####[facility] ([address] [address] VIR LYMPHOCYTES RELATIVE PERCENT BY AUTOMATED COUNT 21.4 % Normal [facility] Comment on above: Performed By: #### C BCA ####[facility] ([address] [address] VIR MCH (RBC) [Entitic mass] 30.6 pg Normal 27-34 [facility] Comment on above: Performed By: #### C BCA ####[facility] ([address] [address] VIR MCHC (RBC) [Mass/Vol] 34.0 g/dL Normal 32-36 [facility] Comment on above: Performed By: #### C BCA ####[facility] ([address] [address] VIR MCV (RBC) [Entitic vol] 90 fL Normal 80-100 [facility] Comment on above: Performed By: #### C BCA ####[facility] ([address] [address] VIR MONOCYTES ABSOLUTE COUNT (10*3/UL) BY AUTOMATED COUNT 1.5 10*3/uL High 0.0-0.9 [facility] Comment on above: Performed By: #### C BCA ####[facility] ([address] [address] VIR MONOCYTES RELATIVE PERCENT BY AUTOMATED COUNT 15.7 % Normal [facility] Comment on above: Performed By: #### C BCA ####[facility] ([address] [place] [address] VIR NEUTROPHILS ABSOLUTE COUNT BY AUTOMATED COUNT 5.5 10*3/uL Normal 1.5-6.6 [facility] Comment on above: Performed By: #### C BCA ####[facility] ([address] [address] VIR NEUTROPHILS RELATIVE PERCENT BY AUTOMATED COUNT 58.7 % Normal [facility] Comment on above: Performed By: #### C BCA ####[facility] ([address] [address] VIR Platelet mean volume (Bld) [Entitic vol] 9.0 fL Normal 7-12 [facility] Comment on above: Performed By: #### C BCA ####[facility] ([address] [address] VIR Platelets (Bld) [#/Vol] 28 10*3/uL Critically low 150-450 [facility] Comment on above: Performed By: #### C BCA ####[facility] ([address] [address] VIR RBC COUNT 2.86 X10E12/L Low 3.8-5.2 [facility] Comment on above: Performed By: #### C BCA ####[facility] ([address] [address] VIR WBC (Bld) [#/Vol] 9.4 10*3/uL Normal 4-11 [facility] Comment on above: Performed By: #### C BCA ####[facility] ([address] [address] VIR CBC auto differentialon 10-16 Basophils (Bld) [#/Vol] 0.1 10*3/uL 0.0 - 0.2 10*3/uL [facility] Basophils/100 WBC (Bld) 0.8 % [facility] Differential cell count method Nom (Bld) AUTOMATED DIFFERENTIAL [facility] Eosinophils (Bld) [#/Vol] 0.3 10*3/uL 0.0 - 0.4 10*3/uL [facility] Eosinophils/100 WBC (Bld) 3.4 % [facility] Erythrocyte distribution width (RBC) [Ratio] 13.5 % 11.5 - 15 % [facility] Hematocrit (Bld) [Volume fraction] 25.8 % Low 35 - 47 % [facility] Hemoglobin (Bld) [Mass/Vol] 8.7 g/dL Low 11.7 - 15.5 g/dL [facility] Interpretation and review of laboratory results Abnormal [facility] Lymphocytes (Bld) [#/Vol] 2 10*3/uL 1.0 - 3.5 10*3/uL [facility] Lymphocytes/100 WBC (Bld) 21.4 % [facility] MCH (RBC) [Entitic mass] 30.6 pg 27 - 34 pg [facility] MCHC (RBC) [Mass/Vol] 34 g/dL 32 - 3 6 g/dL [facility] MCV (RBC) [Entitic vol] 90 fL 80 - 100 fL [facility] Monocytes (Bld) [#/Vol] 1.5 10*3/uL High 0.0 - 0.9 10*3/uL [facility] Monocytes/100 WBC (Bld) 15.7 % [facility] Neutrophils (Bld) [#/Vol] 5.5 10*3/uL 1.5 - 6.6 10*3/uL [facility] Neutrophils/100 WBC (Bld) 58.7 % [facility] Platelet mean volume (Bld) [Entitic vol] 9 fL 7 - 12 fL [facility] Platelets (Bld) [#/Vol] 28 10*3/uL Critically low [facility] RBC (Bld) [#/Vol] 2.86 10*6/uL Low [facility] WBC LM Ql (Sput) 9.4 [facility] COMPREHENSIVE METABOLIC PANE José Luis 11-11-2024 Albumin [Mass/Vol] 2.5 g/dL Low 3.2-5.3 [facility] Comment on above: Performed By: #### C MP ####[facility] ([address] [place] [address] VIR ALP [Catalytic activity/Vol] 71 U/L Normal 39-130 [facility] Comment on above: Performed By: #### C MP ####[facility] ([address] [place] [address] VIR ALT [Catalytic activity/Vol] 14 U/L Normal <=31 [facility] Comment on above: Performed By: #### C MP ####[address] [place] [address] VIR Anion gap [Moles/Vol] 12 mmol/L Normal 5-15 [facility] Comment on above: Performed By: #### C MP ####[address] [place] [address] VIR AST [Catalytic activity/Vol] 17 U/L Normal <=41 [facility] Comment on above: Performed By: #### C MP ####[facility] ([address] [place] [address] VIR Bilirubin [Mass/Vol] 0.5 mg/dL Normal 0.3-1.2 [facility] Comment on above: Performed By: #### C MP ####[address] [address] VIR Calcium [Mass/Vol] 8.5 mg/dL Normal 8.5-10.5 [facility] Comment on above: Performed By: #### C MP ####[facility] ([address] [place] [address] VIR Chloride [Moles/Vol] 101 mmol/L Normal 98-109 [facility] Comment on above: Performed By: #### C MP ####[facility])[address] [place] [address] [address] VIR CO2 [Moles/Vol] 24 mmol/L Normal 22-32 [facility] Comment on above: Performed By: #### C MP ####[facility] ([address] [place] [address] VIR Creatinine [Mass/Vol] 1.64 mg/dL High 0.40-1.00 [facility] Comment on above: Result Comment: METH OD TRACEABLE TO IDMS STANDARD Performed By: #### C MP ####[facility] ([address] [place] [address] VIR GFR/1.73 sq M.predicted among non-blacks MDRD (S/P/Bld) [Vol rate/Area] 31 mL/min/{1.73_m2} Low >=60 [facility] Comment on above: Result Comment: eGFR not reported due to non-numeric value for Creatinine.Reported eGFR is based on theCKD-EPI 2020 equation that doesnot use a race coefficient. Performed By: #### C MP ####[facility] ([address] [place] [address] VIR Glucose [Mass/Vol] 207 mg/dL High 65-99 [facility] Comment on above: Performed By: #### C MP ####[facility] ([address] [place] [address] VIR Potassium [Moles/Vol] 3.9 mmol/L Normal 3.5-5.0 [facility] Comment on above: Performed By: #### C MP ####[facility] ([address] [place] [address] VIR Protein [Mass/Vol] 5.9 g/dL Low 6.0-8.0 [facility] Comment on above: Performed By: #### C MP ####[facility] ([address] [address] VIR Sodium [Moles/Vol] 137 mmol/L Normal 134-146 [facility] Comment on above: Performed By: #### C MP ####[facility] ([address] [address] VIR Urea nitrogen [Mass/Vol] 47 mg/dL High 5-27 [facility] Comment on above: Performed By: #### C MP ####[facility] ([address] [address] VIR Comprehensive metabolic pane josé luis 11-11-2024 Albumin [Mass/Vol] 2.5 g/dL Low 3.2 - 5.3 g/dL [facility] ALP [Catalytic activity/Vol] 71 U/L 39 - 130 U/L [facility] ALT No additional P-5'-P [Catalytic activity/Vol] 14 U/L NINF - 31 U/L [facility] Anion gap [Moles/Vol] 12 mmol/L 5 - 15 mmol/L [facility] AST [Catalytic activity/Vol] 17 U/L NINF - 41 U/L [facility] Bilirubin [Mass/Vol] 0.5 mg/dL 0.3 - 1 .2 mg/dL [facility] Calcium [Mass/Vol] 8.5 mg/dL 8.5 - 10. 5 mg/dL [facility] Chloride [Moles/Vol] 101 mmol/L 98 - 10 9 mmol/L [facility] CO2 [Moles/Vol] 24 mmol/L 22 - 32 mmol/L [facility] Creatinine [Mass/Vol] 1.64 mg/dL High 0.40 - 1.00 mg/dL [facility] EGFR Non-Race Dependent 31 Low - PINF [facility] Glucose [Mass/Vol] 207 mg/dL High 65 - 99 mg/dL [facility] Interpretation and review of laboratory results Abnormal [facility] Potassium [Moles/Vol] 3.9 mmol/L 3.5 - 5.0 mmol/L [facility] Protein [Mass/Vol] 5.9 g/dL Low 6.0 - 8.0 g/dL [facility] Sodium [Moles/Vol] 137 mmol/L 134 - 146 mmol/L [facility] Urea nitrogen [Mass/Vol] 47 mg/dL High 5 - 27 mg/dL [facility] FIBRINOGENon 11-11-2024 FIBRINOGEN 417 mg/dL Normal 190-480 [facility] Comment on above: Performed By: #### F IBR ####[facility] ([facility])[address] [address] VIR Fibrinogenon 11-11-2024 Fibrinogen Coagulation.derived (PPP) [Mass/Vol] 417 mg/dL 190 - 480 mg/dL [facility] Interpretation and review of laboratory results Normal [facility] MAGNESIUMon 11-11-2024 Magnesium [Mass/Vol] 2.4 mg/dL Normal 1.8-2.6 [facility] Comment on above: Performed By: #### M G ####[facility] ([address] [address] VIR MR FOOT RT WO CONTon 025 MR FOOT RT WO CONT Normal [facility] MR Foot - right WO contrasto n 11-11-2024 SECTRAPACS [facility] Radiology Study observation (narrative) [facility] MR Foot - right WO contrastO rdered By: Dinorah Kaur on 11-11-2024 [facility] Work Phone: Magnesiumon 11-11-2024 Interpretation and review of laboratory results Normal [facility] Magnesium [Mass/Vol] 2.4 mg/dL 1.8 - 2 .6 mg/dL [facility] No Panel Informationon 11-11 Interpretation and review of laboratory results Abnormal [facility] PHOSPHORUSon 11-11-2024 Phosphate [Mass/Vol] 2.6 mg/dL Normal 2.4-4.9 [facility] Comment on above: Performed By: #### P HOS ####[facility] ([address] [address] VIR PROCALCITONINon 11-11-2024 PROCALCITONIN 0.20 ng/mL High <0.05 [facility] Comment on above: Order Comment: <0.50 ng/mL - Low risk of severe sepsis and/or septic shock.<2.00 ng/mL - Recommend retesting within 6-24 hours.>2.00 ng/mL - High risk of sepsis and/or septic shock. Performed By: #### P DAVID ####[facility] ([address] [address] VIR Phosphoruson 11-11-2024 Interpretation and review of laboratory results Normal [facility] Phosphate [Mass/Vol] 2.6 mg/dL 2.4 - 4 .9 mg/dL [facility] Procalcitoninon 11-11-2024 Interpretation and review of laboratory results Abnormal [facility] Procalcitonin IA [Mass/Vol] 0.2 ng/mL High NINF - 0.05 ng/mL [facility] BEDSIDE GLUCOSEon 11-10-2024 Glucose [Mass/Vol] 312 mg/dL High 65-99 [facility] Comment on above: Performed By: #### B EDG ####[facility] ([address] [address] VIR Glucose [Mass/Vol] 204 mg/dL High 65-99 [facility] Comment on above: Performed By: #### B EDG ####[facility] ([address] [address] VIR Glucose [Mass/Vol] 233 mg/dL High 65-99 [facility] Comment on above: Performed By: #### B EDG ####[facility])[address] [place], [place] [address] [address] VIR Glucose [Mass/Vol] 100 mg/dL High 65-99 [facility] Comment on above: Performed By: #### B EDG ####[facility])[address] [place] [address] [place] [address] VIR Bedside Glucose *Place/Obtai n serum glucose if >500 per glucometer.on 11-10-2024 Glucose [Mass/Vol] 233 mg/dL High 65 - 99 mg/dL [facility] Interpretation and review of laboratory results Abnormal [facility] Glucose [Mass/Vol] 312 mg/dL High 65 - 99 mg/dL [facility] Interpretation and review of laboratory results Abnormal [facility] Glucose [Mass/Vol] 204 mg/dL High 65 - 99 mg/dL [facility] Interpretation and review of laboratory results Abnormal [facility] Interpretation and review of laboratory results Abnormal [facility] C-REACTIVE PROTEINon 025 C REACTIVE PROTEIN 14.5 mg/dL High <=0.7 [facility] Comment on above: Performed By: #### C RP ####[facility])[address] [place] [address] [place] [address] VIR C-reactive proteinon 025 CRP [Mass/Vol] 14.5 mg/dL High NINF - 0.7 mg/dL [facility] Interpretation and review of laboratory results Abnormal [facility] CBC WITH AUTO DIFFERENTIALon 11-10-2024 CELLAVISION BASOPHILS ABSOLUTE COUNT (10*3/UL) BY MANUAL COUNT 0.1 10*3/uL Normal 0.0-0.2 [facility] Comment on above: Result Comment: This is an appended report. These results have been appended to a previously preliminary verified report. Performed By: #### C BCA ####[facility] ([address] [place] [address] VIR CELLAVISION BASOPHILS RELATIVE PERCENT BY MANUAL COUNT 1 % Normal [facility] Comment on above: Result Comment: This is an appended report. These results have been appended to a previously preliminary verified report. Performed By: #### C BCA ####[facility] ([facility])[address] [place] [address] VIR CELLAVISION DIFFERENTIAL TYPE CELLAVISION DIFFERENTIAL Normal [facility] Comment on above: Result Comment: This is an appended report. These results have been appended to a previously preliminary verified report. Performed By: #### C BCA ####[facility] ([address] [address] VIR CELLAVISION EOSINOPHILS ABSOLUTE COUNT (10*3/UL) BY MANUAL COUNT 0.5 10*3/uL High 0.0-0.4 [facility] Comment on above: Result Comment: This is an appended report. These results have been appended to a previously preliminary verified report. Performed By: #### C BCA ####[facility] ([address] [address] VIR CELLAVISION EOSINOPHILS PERCENT BY MANUAL COUNT 4 % Normal [facility] Comment on above: Result Comment: This is an appended report. These results have been appended to a previously preliminary verified report. Performed By: #### C BCA ####[facility] ([address] [address] VIR CELLAVISION LYMPHOCYTES ABSOLUTE COUNT (10*3/UL) BY MANUAL COUNT 0.9 10*3/uL Low 1.0-3.5 [facility] Comment on above: Result Comment: This is an appended report. These results have been appended to a previously preliminary verified report. Performed By: #### C BCA ####[facility] ([address] [address] VIR CELLAVISION LYMPHOCYTES RELATIVE PERCENT BY MANUAL COUNT 8 % Normal [facility] Comment on above: Result Comment: This is an appended report. These results have been appended to a previously preliminary verified report. Performed By: #### C BCA ####[facility])[address] [place] [address] VIR CELLAVISION METAMYELOCYTES RELATIVE PERCENT BY MANUAL COUNT 2 % Normal [facility] Comment on above: Result Comment: This is an appended report. These results have been appended to a previously preliminary verified report. Performed By: #### C BCA ####[facility])[address] [place] [address] VIR CELLAVISION MONOCYTES ABSOLUTE COUNT (10*3/UL) IN BLOOD BY MANUAL COUNT 0.5 10*3/uL Normal 0.0-0.9 [facility] Comment on above: Result Comment: This is an appended report. These results have been appended to a previously preliminary verified report. Performed By: #### C BCA ####[facility] ([address] [address] VIR CELLAVISION MONOCYTES RELATIVE PERCENT BY MANUAL COUNT 4 % Normal [facility] Comment on above: Result Comment: This is an appended report. These results have been appended to a previously preliminary verified report. Performed By: #### C BCA ####[facility] ([address] [place] [address] VIR CELLAVISION MYELOCYTE RELATIVE PERCENT BY MANUAL COUNT 2 % Normal [facility] Comment on above: Result Comment: This is an appended report. These results have been appended to a previously preliminary verified report. Performed By: #### C BCA ####[facility])[address] [place] [address], [place] [address] VIR CELLAVISION NEUTROPHILS ABSOLUTE COUNT BY MANUAL COUNT 8.8 10*3/uL High 1.5-6.6 [facility] Comment on above: Result Comment: This is an appended report. These results have been appended to a previously preliminary verified report. Performed By: #### C BCA ####[facility] ([address] [address] VIR CELLAVISION NEUTROPHILS RELATIVE PERCENT BY MANUAL COUNT 79 % Normal [facility] Comment on above: Result Comment: This is an appended report. These results have been appended to a previously preliminary verified report. Performed By: #### C BCA ####[facility] ([address] [address] VIR Erythrocyte distribution width (RBC) [Ratio] 13.8 % Normal 11.5-15 [facility] Comment on above: Performed By: #### C BCA ####[facility] ([address] [address] VIR Hematocrit (Bld) [Volume fraction] 28.9 % Low 35-47 [facility] Comment on above: Performed By: #### C BCA ####[facility] ([address] [address] VIR Hemoglobin (Bld) [Mass/Vol] 9.7 g/dL Low 11.7-15.5 [facility] Comment on above: Performed By: #### C BCA ####[facility] ([address] [address] VIR MCH (RBC) [Entitic mass] 30.2 pg Normal 27-34 [facility] Comment on above: Performed By: #### C BCA ####[facility] ([address] [address] VIR MCHC (RBC) [Mass/Vol] 33.5 g/dL Normal 32-36 [facility] Comment on above: Performed By: #### C BCA ####[facility] ([address] [address] VIR MCV (RBC) [Entitic vol] 90 fL Normal 80-100 [facility] Comment on above: Performed By: #### C BCA ####[facility] ([address] [address] VIR Platelet mean volume (Bld) [Entitic vol] 8.2 fL Normal 7-12 [facility] Comment on above: Performed By: #### C BCA ####[facility] ([address] [address] VIR Platelets (Bld) [#/Vol] 19 10*3/uL Critically low 150-450 [facility] Comment on above: Performed By: #### C BCA ####[facility] ([address] [address] VIR RBC COUNT 3.21 X10E12/L Low 3.8-5.2 [facility] Comment on above: Performed By: #### C BCA ####[facility] ([address] [address] VIR WBC (Bld) [#/Vol] 11.1 10*3/uL High 4-11 [facility] Comment on above: Performed By: #### C BCA ####[facility] ([address] [address] VIR CBC auto differentialon 10-16 Basophils (Bld) [#/Vol] 0.1 10*3/uL 0.0 - 0.2 10*3/uL [facility] Basophils/100 WBC (Bld) 1 % [facility] Differential cell count method Nom (Bld) CELLAVISION DIFFERENTIAL [facility] Eosinophils (Bld) [#/Vol] 0.5 10*3/uL High 0.0 - 0.4 10*3/uL [facility] Eosinophils/100 WBC (Bld) 4 % [facility] Erythrocyte distribution width (RBC) [Ratio] 13.8 % 11.5 - 15 % [facility] Hematocrit (Bld) [Volume fraction] 28.9 % Low 35 - 47 % [facility] Hemoglobin (Bld) [Mass/Vol] 9.7 g/dL Low 11.7 - 15.5 g/dL [facility] Interpretation and review of laboratory results Abnormal [facility] Lymphocytes (Bld) [#/Vol] 0.9 10*3/uL Low 1.0 - 3.5 10*3/uL [facility] MCH (RBC) [Entitic mass] 30.2 pg 27 - 34 pg [facility] MCHC (RBC) [Mass/Vol] 33.5 g/dL 32 - 3 6 g/dL [facility] MCV (RBC) [Entitic vol] 90 fL 80 - 100 fL [facility] Metamyelocytes/100 WBC (Bld) 2 % [facility] Monocytes (Bld) [#/Vol] 0.5 10*3/uL 0.0 - 0.9 10*3/uL [facility] Monocytes/100 WBC (Bld) 4 % [facility] Myelocytes/100 WBC (Bld) 2 % [facility] Neutrophils (Bld) [#/Vol] 8.8 10*3/uL High 1.5 - 6.6 10*3/uL [facility] Neutrophils/100 WBC (Bld) 79 % [facility] Platelet mean volume (Bld) [Entitic vol] 8.2 fL 7 - 12 fL [facility] Platelets (Bld) [#/Vol] 19 10*3/uL Critically low [facility] RBC (Bld) [#/Vol] 3.21 10*6/uL Low [facility] Variant lymphocytes/100 WBC (Bld) 8 % [facility] WBC LM Ql (Sput) 11.1 High [facility] CLINICAL PATHOLOGY BLOOD SME AR REVIEWon 11-10-2024 CLINICAL PATHOLOGY BLOOD SMEAR REVIEW STAFF CLINICAL PATHOLOGY BLOOD SMEAR REVIEW Cancelled Normal [facility] COMPREHENSIVE METABOLIC PANE José Luis 11-10-2024 Albumin [Mass/Vol] 2.9 g/dL Low 3.2-5.3 [facility] Comment on above: Performed By: #### C MP ####[facility] ([facility] [place] [address] VIR ALP [Catalytic activity/Vol] 78 U/L Normal 39-130 [facility] Comment on above: Performed By: #### C MP ####[facility] ([facility] [place] [address] VIR ALT [Catalytic activity/Vol] 15 U/L Normal <=31 [facility] Comment on above: Performed By: #### C MP ####[facility] ([facility] [place] [address] VIR Anion gap [Moles/Vol] 12 mmol/L Normal 5-15 [facility] Comment on above: Performed By: #### C MP ####[facility] ([place] [address] [place] [address] VIR AST [Catalytic activity/Vol] 19 U/L Normal <=41 [facility] Comment on above: Performed By: #### C MP ####[facility] ([facility] [place] [address] VIR Bilirubin [Mass/Vol] 0.8 mg/dL Normal 0.3-1.2 [facility] Comment on above: Performed By: #### C MP ####[facility] ([place] [address] [place] [address] VIR Calcium [Mass/Vol] 8.8 mg/dL Normal 8.5-10.5 [facility] Comment on above: Performed By: #### C MP ####[facility] ([place] [address] [place] [address] VIR Chloride [Moles/Vol] 104 mmol/L Normal 98-109 [facility] Comment on above: Performed By: #### C MP ####[facility] ([place] [address] [place] [address] VIR CO2 [Moles/Vol] 22 mmol/L Normal 22-32 [facility] Comment on above: Performed By: #### C MP ####[facility] ([address] [place] [address] VIR Creatinine [Mass/Vol] 1.86 mg/dL High 0.40-1.00 [facility] Comment on above: Result Comment: METH OD TRACEABLE TO IDMS STANDARD Performed By: #### C MP ####[facility] ([address] [place] [address] VIR GFR/1.73 sq M.predicted among non-blacks MDRD (S/P/Bld) [Vol rate/Area] 27 mL/min/{1.73_m2} Low >=60 [facility] Comment on above: Result Comment: eGFR not reported due to non-numeric value for Creatinine.Reported eGFR is based on theCKD-EPI 2020 equation that doesnot use a race coefficient. Performed By: #### C MP ####[facility] ([address] [place] [address] VIR Glucose [Mass/Vol] 99 mg/dL Normal 65-99 [facility] Comment on above: Performed By: #### C MP ####[facility] ([address] [place] [address] VIR Potassium [Moles/Vol] 4.4 mmol/L Normal 3.5-5.0 [facility] Comment on above: Performed By: #### C MP ####[facility] ([address] [place] [address] VIR Protein [Mass/Vol] 7.2 g/dL Normal 6.0-8.0 [facility] Comment on above: Performed By: #### C MP ####[facility] ([address] [place] [address] VIR Sodium [Moles/Vol] 138 mmol/L Normal 134-146 [facility] Comment on above: Performed By: #### C MP ####[facility])[address] [place] [address] [place] [address] VIR Urea nitrogen [Mass/Vol] 65 mg/dL High 11-10 [facility] Comment on above: Performed By: #### C MP ####[facility])[address] [place] [address] VIR Clinical Pathology Blood Sme ar Review ClinicalOrdered By: Tameka Adams on 11-10-2024 Case Report [facility] Work Phone: Clinical Information 83 year old woman with history of diabetes, 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 Concern for hemolysis. [facility] [employer] [facility] Work Phone: Microscopic observation Cyto stain Nom (U) g6oylBBrIUTupONyMRAjH Uf2rMZmy7B0frsqPL1lkF dxdFw3pLyuIOSzizE9hND vJMmmq7efSTM4q1esiqca VYRuZZczNi8bvHRbaItsO kTmT4Xin0KiHZx5oC46WU FmsL9vyZDmPOy8BABgnHI ydzEyMjQwXHBhcGVyaDE1 ASDoIK2szkamYIazUNfbR NNgwgO5ASXdkWNxS3SrAR QrQL1iwjizCNC4JCheTRU oBCG3ObStWJVmz4Ljfbx6 MjBccGFyZFxwbGFpblxmc sTeTRGWVqWpWD8wEj6nSJ W4EJklA1GJAQM6GUAwFY6 1vOEyQCctLEpgSNnVWAQ7 UAoiNWbwPDa3JFfREFBmY ZQ0JgKmKL6UVqT7LLmwWr e1WINAUGO6QGP3cBNqZUy vTFxwYXJccGFyIFdoaXRl VJKlq02sNAZvyBsqKFMnW BY2pFHelJ5udf9juIUhZE loeNt9gyD0vRDdRH5api7 ccAVdp8ZwkH6du5n3TlVO aXJjdWxhdGluZyBibGFzd NKgWRHnWM7jeUJfAUZgwY kyrVGvNaRHnKz7CFTelT7 wMOUsLPrakgWwmkPeg6Ve IIF7iEGeXNLuvkGwBMWdF LTaAP3iJjFyHSOmg53kTU YtgZlbUGLph8wnnU9uVCT jeYCeag3txW4ypZTxEpHv ecWndQHwh2y5bWTgtOpnT YYnrKNuhK6vl2oca1G2yO 2yvPJeTZ4fBT4eUSezL1D tVBGhSKzsVPPteGacuK9g rUUmll7cGXnvzCZlUKNlT GFyZSBtYXJrZWRseSBkZW FdTSOuQSWkl7i3iNDss1T iXSytg6t2YAKjcfOoT3Vi joQqELNjp30qVSYqidzzt cSmCRTyEFQuQEVraRA3IY elwWMwRPNvOWWqAS5rCSN hcn0= [facility] [employer] [facility] Work Phone: Pathology report final diagnosis Narrative f9hcfSJgQROwsORfUNNfY WzawsFnEBWmkKPuQ3Mixi zaEWvgWG9bUF6flEjjnVX bjSIjPZXeVlXcw5nri950 zETzb3ftYHFNZFdbBNAZG Vv2xSqhH38hs5V6LtawC5 7aqXKwLJW5XXNyGGYfkQS uRUBbJHM8BZFygPEhT0un BUNzMH0zhsueQSigHTgjG KXgrIT9DJFduEVxA2EbTR PiZRapYHQjsgf8UoJoXp3 vdGVyeTcyMFxwYXJkXHBs NWcgMGKnUcAzWr1pvF5cl FUxLkKwobGbtUTll0u5vM 13oIUbvCvgrMOoE5YqnNQ by7k4C7opa81ao1wsSD7f GG3ornBgj1voZ6kmESY2r UGjlpNkRQ1oEZhxvS6zhX Rslk9hjQZgPIPqav4eBs4 jkONofSGbgETys0v9tPLp r8CqrV5lc1zdQ8CnvLcwm Z1rUX0tfcngCfuiYCNrSD TvnJO1wx2eWdZbSBIwCLS tOEZqzGF4LNusaBExdOAa nbFmFxnuGB3qtKWbhV== [facility] Work Phone: [facility] Work Phone: Comprehensive metabolic pane josé luis 11-10-2024 Albumin [Mass/Vol] 2.9 g/dL Low 3.2 - 5.3 g/dL [facility] ALP [Catalytic activity/Vol] 78 U/L 39 - 130 U/L [facility] ALT No additional P-5'-P [Catalytic activity/Vol] 15 U/L NINF - 31 U/L [facility] Anion gap [Moles/Vol] 12 mmol/L 5 - 15 mmol/L [facility] AST [Catalytic activity/Vol] 19 U/L NINF - 41 U/L [facility] Bilirubin [Mass/Vol] 0.8 mg/dL 0.3 - 1 .2 mg/dL [facility] Calcium [Mass/Vol] 8.8 mg/dL 8.5 - 10. 5 mg/dL [facility] Chloride [Moles/Vol] 104 mmol/L 98 - 10 9 mmol/L [facility] CO2 [Moles/Vol] 22 mmol/L 22 - 32 mmol/L [facility] Creatinine [Mass/Vol] 1.86 mg/dL High 0.40 - 1.00 mg/dL [facility] EGFR Non-Race Dependent 27 Low - PINF [facility] Glucose [Mass/Vol] 99 mg/dL 65 - 99 mg/dL [facility] Potassium [Moles/Vol] 4.4 mmol/L 3.5 - 5.0 mmol/L [facility] Protein [Mass/Vol] 7.2 g/dL 6.0 - 8.0 g/dL [facility] Sodium [Moles/Vol] 138 mmol/L 134 - 146 mmol/L [facility] Urea nitrogen [Mass/Vol] 65 mg/dL High 5 - 27 mg/dL [facility] DIRECT COOMBSon 11-10-2024 POLYSPECIFIC KACIE Negative Normal [facility] Comment on above: Performed By: #### D ATB ####[facility] ([facility])[address] [place] [address] VIR Direct Coombson 11-10-2024 Polyspecific KACIE Negative [facility] FERRITINon 11-10-2024 Ferritin [Mass/Vol] 235 ng/mL Normal 11-307 [facility] Comment on above: Performed By: #### F ERR ####[facility] ([facility])[address] [facility] [address] [address] VIR FOLATEon 11-10-2024 FOLIC ACID 13.5 ng/mL Normal >5.8 [facility] Comment on above: Performed By: #### F SOUTH ####[facility] ([facility])[address] [address] VIR Ferritinon 11-10-2024 Ferritin [Mass/Vol] 235 ng/mL 11 - 307 ng/mL [facility] Interpretation and review of laboratory results Normal [facility] Folateon 11-10-2024 Folate [Mass/Vol] 13.5 ng/mL 5.8 - PINF ng/mL [facility] Interpretation and review of laboratory results Normal [facility] HAPTOGLOBINon 11-10-2024 HAPTOGLOBIN 207 mg/dL Normal 32-228 [facility] Comment on above: Performed By: #### H APT ####[facility] ([facility])[address] [address] VIR Haptoglobinon 11-10-2024 Haptoglobin Nephelometry [Mass/Vol] 207 mg/dL 32 - 228 mg/dL [facility] Interpretation and review of laboratory results Normal [facility] Heparin PF4 ABOrdered By: Hannah Malcolm on 11-10-2024 Heparin induced platelet IgG IA [OD] 0.137 NINF [facility] Interpretation and review of laboratory results Normal [facility] IRON AND TIBCon 11-10-2024 Iron [Mass/Vol] 45 ug/dL Low 50-170 [facility] Comment on above: Performed By: #### F EPR ####[facility] ([facility])[address] [address] VIR IRON BINDING 230 ug/dL Low 250-425 [facility] Comment on above: Performed By: #### F EPR ####[facility] ([facility])[address] [address] VIR IRON SATURATION 20 % SATURATION Normal 15-50 [facility] Comment on above: Performed By: #### F EPR ####[facility] ([facility])[address] [address] VIR Transferrin [Mass/Vol] 164 mg/dL Low 168-336 [facility] Comment on above: Performed By: #### F EPR ####[facility] ([facility])[address] [address] VIR Iron and TIBCon 11-10-2024 Interpretation and review of laboratory results Abnormal [facility] Iron [Mass/Vol] 45 ug/dL Low 50 - 170 ug/dL [facility] Iron binding capacity [Mass/Vol] 230 ug/dL Low 250 - 425 ug/dL [facility] Iron saturation [Mass fraction] 20 [facility] Transferrin [Mass or moles/Vol] 164 mg/dL Low 168 - 336 mg/dL [facility] LDHon 11-10-2024 Interpretation and review of laboratory results Normal [facility] LDH [Catalytic activity/Vol] 195 U/L 100 - 235 U/L [facility] LDH 195 U/L Normal 100-235 [facility] Comment on above: Performed By: #### L ####[facility] ([facility])[address] [facility] [address], [place] [address] VIR Light Blue Topon 11-10-2024 Extra Tube Auto Resulted [facility] MAGNESIUMon 11-10-2024 Magnesium [Mass/Vol] 2.7 mg/dL High 1.8-2.6 [facility] Comment on above: Performed By: #### M G ####[facility] ([facility] [place] [address] VIR MR LOWER LEG LT WO CONTon MR LOWER LEG LT WO CONT Normal [facility] MR LOWER LEG RT WO CONTon MR LOWER LEG RT WO CONT Normal [facility] MR Lower leg - left WO contr haris 11-10-2024 [facility] Study observation (narrative) [facility] MR Lower leg - left WO contr astOrdered By: Paulino Correa on 11-10-2024 [facility] Work Phone: MR Lower leg - right WO cont raston 11-10-2024 SECTRAPACS [facility] Radiology Study observation (narrative) [facility] MR Lower leg - right WO cont rastOrdered By: Chaka Patel on 11-10-2024 [facility] Work Phone: Magnesiumon 11-10-2024 Magnesium [Mass/Vol] 2.7 mg/dL High 1.8 - 2 .6 mg/dL [facility] No Panel Informationon 11-10 [facility] Interpretation and review of laboratory results Abnormal [facility] PHOSPHORUSon 11-10-2024 Phosphate [Mass/Vol] 3.1 mg/dL Normal 2.4-4.9 [facility] Comment on above: Performed By: #### P HOS ####[facility] ([address] [address] VIR PROCALCITONINon 11-10-2024 PROCALCITONIN 0.27 ng/mL High <0.05 [facility] Comment on above: Order Comment: <0.50 ng/mL - Low risk of severe sepsis and/or septic shock.<2.00 ng/mL - Recommend retesting within 6-24 hours.>2.00 ng/mL - High risk of sepsis and/or septic shock. Performed By: #### P DAVID ####[facility] ([address] [address] VIR Phosphoruson 11-10-2024 Interpretation and review of laboratory results Normal [facility] Phosphate [Mass/Vol] 3.1 mg/dL 2.4 - 4 .9 mg/dL [facility] Procalcitoninon 11-10-2024 Interpretation and review of laboratory results Abnormal [facility] Procalcitonin IA [Mass/Vol] 0.27 ng/mL High NINF - 0.05 ng/mL [facility] RETICULOCYTESon 11-10-2024 RETICULOCYTE COUNT 1.8 % Normal 0.4-2.2 [facility] Comment on above: Performed By: #### R ETIC ####[facility] ([facility])[address] [facility] [address], [place] [address] VIR Reticulocyteson 11-10-2024 Interpretation and review of laboratory results Normal [facility] Reticulocytes/100 RBC (Bld) 1.8 % 0.4 - 2.2 % [facility] VANCOMYCIN, RANDOMon 025 VANCOMYCIN 22.2 ug/mL Normal 5.0-40.0 [facility] Comment on above: Order Comment: Peak 30-40 ug/mLTrough 5-20 ug/ml Performed By: #### V ANC ####[facility])[address] [place] [address] VIR VITAMIN B12on 11-10-2024 Cobalamin (Vitamin B12) [Mass/Vol] 182 pg/mL Normal 180-914 [facility] Comment on above: Performed By: #### B 12 ####[facility] ([facility])[address], [place] [address] VIR Vancomycin, randomon 025 Interpretation and review of laboratory results Normal [facility] Vancomycin [Susc] 22.2 ug/mL 5.0 - 40.0 ug/mL [facility] Vitamin B12on 11-10-2024 Cobalamin (Vitamin B12) [Mass/Vol] 182 pg/mL 180 - 914 pg/mL [facility] Interpretation and review of laboratory results Normal [facility] BEDSIDE GLUCOSEon 11-09-2024 Glucose [Mass/Vol] 211 mg/dL High 65-99 [facility] Comment on above: Performed By: #### B EDG ####[facility])[address] [place] [address], [place] [address] VIR Glucose [Mass/Vol] 185 mg/dL High 65-99 [facility] Comment on above: Performed By: #### B EDG ####[facility] ([address] [place] [address] VIR Glucose [Mass/Vol] 144 mg/dL High 65-99 [facility] Comment on above: Performed By: #### B EDG ####[facility] ([address] [address] VIR Bedside Glucose *Place/Obtai n serum glucose if >500 per glucometer.on 11-09-2024 Glucose [Mass/Vol] 211 mg/dL High 65 - 99 mg/dL [facility] Interpretation and review of laboratory results Abnormal [facility] Glucose [Mass/Vol] 185 mg/dL High 65 - 99 mg/dL [facility] Interpretation and review of laboratory results Abnormal [facility] Glucose [Mass/Vol] 144 mg/dL High 65 - 99 mg/dL [facility] Interpretation and review of laboratory results Abnormal [facility] C-REACTIVE PROTEINon 025 C REACTIVE PROTEIN 17.6 mg/dL High <=0.7 [facility] Comment on above: Performed By: #### C RP ####[facility] ([address] [address] VIR C-reactive proteinon 025 CRP [Mass/Vol] 17.6 mg/dL High NINF - 0.7 mg/dL [facility] Interpretation and review of laboratory results Abnormal [facility] CBC WITH AUTO DIFFERENTIALon 11-09-2024 BASOPHILS ABSOLUTE COUNT (10*3/UL) BY AUTOMATED COUNT 0.1 10*3/uL Normal 0.0-0.2 [facility] Comment on above: Performed By: #### C BCA ####[facility] ([address] [address] VIR BASOPHILS RELATIVE PERCENT BY AUTOMATED COUNT 0.6 % Normal [facility] Comment on above: Performed By: #### C BCA ####[facility] ([address] [address] VIR CELLAVISION DIFFERENTIAL TYPE AUTOMATED DIFFERENTIAL Normal [facility] Comment on above: Performed By: #### C BCA ####[facility] ([address] [address] VIR Eosinophils (Bld) [#/Vol] 0.3 10*3/uL Normal 0.0-0.4 [facility] Comment on above: Performed By: #### C BCA ####[facility] ([address] [address] VIR EOSINOPHILS RELATIVE PERCENT BY AUTOMATED COUNT 3.1 % Normal [facility] Comment on above: Performed By: #### C BCA ####[facility] ([address] [address] VIR Erythrocyte distribution width (RBC) [Ratio] 13.7 % Normal 11.5-15 [facility] Comment on above: Performed By: #### C BCA ####[facility] ([address] [address] VIR Hematocrit (Bld) [Volume fraction] 29.4 % Low 35-47 [facility] Comment on above: Performed By: #### C BCA ####[facility] ([address] [address] VIR Hemoglobin (Bld) [Mass/Vol] 9.9 g/dL Low 11.7-15.5 [facility] Comment on above: Performed By: #### C BCA ####[facility] ([address] [address] VIR LYMPHOCYTES ABSOLUTE COUNT (10*3/UL) BY AUTOMATED COUNT 1.2 10*3/uL Normal 1.0-3.5 [facility] Comment on above: Performed By: #### C BCA ####[facility] ([address] [address] VIR LYMPHOCYTES RELATIVE PERCENT BY AUTOMATED COUNT 11.4 % Normal [facility] Comment on above: Performed By: #### C BCA ####[facility] ([address] [address] VIR MCH (RBC) [Entitic mass] 30.3 pg Normal 27-34 [facility] Comment on above: Performed By: #### C BCA ####[facility] ([address] [address] VIR MCHC (RBC) [Mass/Vol] 33.6 g/dL Normal 32-36 [facility] Comment on above: Performed By: #### C BCA ####[facility] ([address] [address] VIR MCV (RBC) [Entitic vol] 90 fL Normal 80-100 [facility] Comment on above: Performed By: #### C BCA ####[facility] ([address] [address] VIR MONOCYTES ABSOLUTE COUNT (10*3/UL) BY AUTOMATED COUNT 1.4 10*3/uL High 0.0-0.9 [facility] Comment on above: Performed By: #### C BCA ####[facility] ([address] [address] VIR MONOCYTES RELATIVE PERCENT BY AUTOMATED COUNT 13.8 % Normal [facility] Comment on above: Performed By: #### C BCA ####[facility] ([address] [address] VIR NEUTROPHILS ABSOLUTE COUNT BY AUTOMATED COUNT 7.4 10*3/uL High 1.5-6.6 [facility] Comment on above: Performed By: #### C BCA ####[facility] ([address] [address] VIR NEUTROPHILS RELATIVE PERCENT BY AUTOMATED COUNT 71.1 % Normal [facility] Comment on above: Performed By: #### C BCA ####[facility] ([address] [address] VIR Platelet mean volume (Bld) [Entitic vol] 8.7 fL Normal 7-12 [facility] Comment on above: Performed By: #### C BCA ####[facility] ([address] [address] VIR Platelets (Bld) [#/Vol] 25 10*3/uL Critically low 150-450 [facility] Comment on above: Performed By: #### C BCA ####[facility] ([address] [place] [address] VIR RBC COUNT 3.27 X10E12/L Low 3.8-5.2 [facility] Comment on above: Performed By: #### C BCA ####[facility] ([address] [place] [address] VIR WBC (Bld) [#/Vol] 10.5 10*3/uL Normal 4-11 [facility] Comment on above: Performed By: #### C BCA ####[facility] ([address] [place] [address] VIR BASOPHILS ABSOLUTE COUNT (10*3/UL) BY AUTOMATED COUNT 0.1 10*3/uL Normal 0.0-0.2 [facility] Comment on above: Performed By: #### C BCA ####[facility] ([address] [address] VIR BASOPHILS RELATIVE PERCENT BY AUTOMATED COUNT 0.8 % Normal [facility] Comment on above: Performed By: #### C BCA ####[facility] ([address] [address] VIR CELLAVISION DIFFERENTIAL TYPE AUTOMATED DIFFERENTIAL Normal [facility] Comment on above: Performed By: #### C BCA ####[facility] ([address] [place] [address] VIR Eosinophils (Bld) [#/Vol] 0.3 10*3/uL Normal 0.0-0.4 [facility] Comment on above: Performed By: #### C BCA ####[facility] ([address] [place] [address] VIR EOSINOPHILS RELATIVE PERCENT BY AUTOMATED COUNT 3.0 % Normal [facility] Comment on above: Performed By: #### C BCA ####[facility])[address] [place] [address] VIR Erythrocyte distribution width (RBC) [Ratio] 13.7 % Normal 11.5-15 [facility] Comment on above: Performed By: #### C BCA ####[facility] ([address] [address] VIR Hematocrit (Bld) [Volume fraction] 30.0 % Low 35-47 [facility] Comment on above: Performed By: #### C BCA ####[facility] ([address] [address] VIR Hemoglobin (Bld) [Mass/Vol] 10.0 g/dL Low 11.7-15.5 [facility] Comment on above: Performed By: #### C BCA ####[facility] ([address] [address] VIR LYMPHOCYTES ABSOLUTE COUNT (10*3/UL) BY AUTOMATED COUNT 0.7 10*3/uL Low 1.0-3.5 [facility] Comment on above: Performed By: #### C BCA ####[facility] ([address] [address] VIR LYMPHOCYTES RELATIVE PERCENT BY AUTOMATED COUNT 6.5 % Normal [facility] Comment on above: Performed By: #### C BCA ####[facility] ([address] [address] VIR MCH (RBC) [Entitic mass] 30.1 pg Normal 27-34 [facility] Comment on above: Performed By: #### C BCA ####[facility] ([address] [address] VIR MCHC (RBC) [Mass/Vol] 33.4 g/dL Normal 32-36 [facility] Comment on above: Performed By: #### C BCA ####[facility] ([address] [place] [address] VIR MCV (RBC) [Entitic vol] 90 fL Normal 80-100 [facility] Comment on above: Performed By: #### C BCA ####[facility] ([address] [place] [address] VIR MONOCYTES ABSOLUTE COUNT (10*3/UL) BY AUTOMATED COUNT 1.6 10*3/uL High 0.0-0.9 [facility] Comment on above: Performed By: #### C BCA ####[facility] ([address] [place] [address] VIR MONOCYTES RELATIVE PERCENT BY AUTOMATED COUNT 14.0 % Normal [facility] Comment on above: Performed By: #### C BCA ####[facility] ([address] [place] [address] VIR NEUTROPHILS ABSOLUTE COUNT BY AUTOMATED COUNT 8.5 10*3/uL High 1.5-6.6 [facility] Comment on above: Performed By: #### C BCA ####[facility] ([address] [address] VIR NEUTROPHILS RELATIVE PERCENT BY AUTOMATED COUNT 75.7 % Normal [facility] Comment on above: Performed By: #### C BCA ####[facility] ([address] [place] [address] VIR Platelet mean volume (Bld) [Entitic vol] 8.3 fL Normal 7-12 [facility] Comment on above: Performed By: #### C BCA ####[facility] ([address] [place] [address] VIR Platelets (Bld) [#/Vol] 27 10*3/uL Critically low 150-450 [facility] Comment on above: Performed By: #### C BCA ####[facility] ([address] [address] VIR RBC COUNT 3.33 X10E12/L Low 3.8-5.2 [facility] Comment on above: Performed By: #### C JOSSIE ####[facility] ([facility])[address] [place] [address] [place] [address] VIR WBC (Bld) [#/Vol] 11.2 10*3/uL High 4-11 [facility] Comment on above: Performed By: #### C JOSSIE ####[facility])[address] [place] [address] [place] [address] VIR CBC auto differentialon 10-16 Basophils (Bld) [#/Vol] 0.1 10*3/uL 0.0 - 0.2 10*3/uL [facility] Basophils/100 WBC (Bld) 0.6 % [facility] Differential cell count method Nom (Bld) AUTOMATED DIFFERENTIAL [facility] Eosinophils (Bld) [#/Vol] 0.3 10*3/uL 0.0 - 0.4 10*3/uL [facility] Eosinophils/100 WBC (Bld) 3.1 % [facility] Erythrocyte distribution width (RBC) [Ratio] 13.7 % 11.5 - 15 % [facility] Hematocrit (Bld) [Volume fraction] 29.4 % Low 35 - 47 % [facility] Hemoglobin (Bld) [Mass/Vol] 9.9 g/dL Low 11.7 - 15.5 g/dL [facility] Interpretation and review of laboratory results Abnormal [facility] Lymphocytes (Bld) [#/Vol] 1.2 10*3/uL 1.0 - 3.5 10*3/uL [facility] Lymphocytes/100 WBC (Bld) 11.4 % [facility] MCH (RBC) [Entitic mass] 30.3 pg 27 - 34 pg [facility] MCHC (RBC) [Mass/Vol] 33.6 g/dL 32 - 3 6 g/dL [facility] MCV (RBC) [Entitic vol] 90 fL 80 - 100 fL [facility] Monocytes (Bld) [#/Vol] 1.4 10*3/uL High 0.0 - 0.9 10*3/uL [facility] Monocytes/100 WBC (Bld) 13.8 % [facility] Neutrophils (Bld) [#/Vol] 7.4 10*3/uL High 1.5 - 6.6 10*3/uL [facility] Neutrophils/100 WBC (Bld) 71.1 % [facility] Platelet mean volume (Bld) [Entitic vol] 8.7 fL 7 - 12 fL [facility] Platelets (Bld) [#/Vol] 25 10*3/uL Critically low [facility] RBC (Bld) [#/Vol] 3.27 10*6/uL Low [facility] WBC LM Ql (Sput) 10.5 [facility] CBC auto differentialOrdered By: Jodi Pantoja on 11-09-2024 Basophils (Bld) [#/Vol] 0.1 10*3/uL 0.0 - 0.2 10*3/uL [facility] Basophils/100 WBC (Bld) 0.8 % [facility] Differential cell count method Nom (Bld) AUTOMATED DIFFERENTIAL [facility] Eosinophils (Bld) [#/Vol] 0.3 10*3/uL 0.0 - 0.4 10*3/uL [facility] Eosinophils/100 WBC (Bld) 3 % [facility] Erythrocyte distribution width (RBC) [Ratio] 13.7 % 11.5 - 15 % [facility] Hematocrit (Bld) [Volume fraction] 30 % Low 35 - 47 % [facility] Hemoglobin (Bld) [Mass/Vol] 10 g/dL Low 11.7 - 15.5 g/dL [facility] Interpretation and review of laboratory results Abnormal [facility] Lymphocytes (Bld) [#/Vol] 0.7 10*3/uL Low 1.0 - 3.5 10*3/uL [facility] Lymphocytes/100 WBC (Bld) 6.5 % [facility] MCH (RBC) [Entitic mass] 30.1 pg 27 - 34 pg [facility] MCHC (RBC) [Mass/Vol] 33.4 g/dL 32 - 3 6 g/dL [facility] MCV (RBC) [Entitic vol] 90 fL 80 - 100 fL [facility] Monocytes (Bld) [#/Vol] 1.6 10*3/uL High 0.0 - 0.9 10*3/uL [facility] Monocytes/100 WBC (Bld) 14 % [facility] Neutrophils (Bld) [#/Vol] 8.5 10*3/uL High 1.5 - 6.6 10*3/uL [facility] Neutrophils/100 WBC (Bld) 75.7 % [facility] Platelet mean volume (Bld) [Entitic vol] 8.3 fL 7 - 12 fL [facility] Platelets (Bld) [#/Vol] 27 10*3/uL Critically low [facility] RBC (Bld) [#/Vol] 3.33 10*6/uL Low [facility] WBC LM Ql (Sput) 11.2 High [facility] COMPREHENSIVE METABOLIC PANE José Luis 11-09-2024 Albumin [Mass/Vol] 3.3 g/dL Normal 3.2-5.3 [facility] Comment on above: Performed By: #### C MP ####[facility] ([address] [address] VIR ALP [Catalytic activity/Vol] 85 U/L Normal 39-130 [facility] Comment on above: Performed By: #### C MP ####[facility] ([address] [address] VIR ALT [Catalytic activity/Vol] 18 U/L Normal <=31 [facility] Comment on above: Performed By: #### C MP ####[facility] ([address] [address] VIR Anion gap [Moles/Vol] 7 mmol/L Normal 5-15 [facility] Comment on above: Performed By: #### C MP ####[facility] ([address] [place] [address] VIR AST [Catalytic activity/Vol] 22 U/L Normal <=41 [facility] Comment on above: Performed By: #### C MP ####[facility] ([address] [place] [address] VIR Bilirubin [Mass/Vol] 0.6 mg/dL Normal 0.3-1.2 [facility] Comment on above: Performed By: #### C MP ####[facility] ([address] [place] [address] VIR Calcium [Mass/Vol] 8.5 mg/dL Normal 8.5-10.5 [facility] Comment on above: Performed By: #### C MP ####[facility] ([address] [place] [address] VIR Chloride [Moles/Vol] 106 mmol/L Normal 98-109 [facility] Comment on above: Performed By: #### C MP ####[facility] ([address] [place] [address] VIR CO2 [Moles/Vol] 22 mmol/L Normal 22-32 [facility] Comment on above: Performed By: #### C MP ####[facility] ([address] [place] [address] VIR Creatinine [Mass/Vol] 2.35 mg/dL High 0.40-1.00 [facility] Comment on above: Result Comment: METH OD TRACEABLE TO IDMS STANDARD Performed By: #### C MP ####[facility] ([address] [place] [address] VIR GFR/1.73 sq M.predicted among non-blacks MDRD (S/P/Bld) [Vol rate/Area] 20 mL/min/{1.73_m2} Low >=60 [facility] Comment on above: Result Comment: eGFR not reported due to non-numeric value for Creatinine.Reported eGFR is based on theCKD-EPI 2020 equation that doesnot use a race coefficient. Performed By: #### C MP ####[facility] ([facility])[address] [place] [address].[place] [address] VIR Glucose [Mass/Vol] 82 mg/dL Normal 65-99 [facility] Comment on above: Performed By: #### C MP ####[facility] ([address] [place] [address] VIR Potassium [Moles/Vol] 5.3 mmol/L High 3.5-5.0 [facility] Comment on above: Performed By: #### C MP ####[facility] ([address] [place] [address] VIR Protein [Mass/Vol] 7.7 g/dL Normal 6.0-8.0 [facility] Comment on above: Performed By: #### C MP ####[facility] ([address] [place] [address] VIR Sodium [Moles/Vol] 135 mmol/L Normal 134-146 [facility] Comment on above: Performed By: #### C MP ####[facility] ([address] [place] [address] VIR Urea nitrogen [Mass/Vol] 76 mg/dL High 5-27 [facility] Comment on above: Performed By: #### C MP ####[facility] ([address] [place] [address] VIR Comprehensive metabolic pane josé ulis 11-09-2024 Albumin [Mass/Vol] 3.3 g/dL 3.2 - 5.3 g/dL [facility] ALP [Catalytic activity/Vol] 85 U/L 39 - 130 U/L [facility] ALT No additional P-5'-P [Catalytic activity/Vol] 18 U/L NINF - 31 U/L [facility] Anion gap [Moles/Vol] 7 mmol/L 5 - 15 mmol/L [facility] AST [Catalytic activity/Vol] 22 U/L NINF - 41 U/L [facility] Bilirubin [Mass/Vol] 0.6 mg/dL 0.3 - 1 .2 mg/dL [facility] Calcium [Mass/Vol] 8.5 mg/dL 8.5 - 10. 5 mg/dL [facility] Chloride [Moles/Vol] 106 mmol/L 98 - 10 9 mmol/L [facility] CO2 [Moles/Vol] 22 mmol/L 22 - 32 mmol/L [facility] Creatinine [Mass/Vol] 2.35 mg/dL High 0.40 - 1.00 mg/dL [facility] EGFR Non-Race Dependent 20 Low - PINF [facility] Glucose [Mass/Vol] 82 mg/dL 65 - 99 mg/dL [facility] Potassium [Moles/Vol] 5.3 mmol/L High 3.5 - 5.0 mmol/L [facility] Protein [Mass/Vol] 7.7 g/dL 6.0 - 8.0 g/dL [facility] Sodium [Moles/Vol] 135 mmol/L 134 - 146 mmol/L [facility] Urea nitrogen [Mass/Vol] 76 mg/dL High 5 - 27 mg/dL [facility] FERRITINon 11-09-2024 Ferritin [Mass/Vol] 256 ng/mL Normal 11-307 [facility] Comment on above: Performed By: #### F ERR ####[facility] ([facility])[address] [address] VIR FOLATEon 11-09-2024 FOLIC ACID 12.9 ng/mL Normal >5.8 [facility] Comment on above: Performed By: #### F SOUHT ####[facility] ([facility])[address] [address] VIR FOLIC ACID 12.3 ng/mL Normal >5.8 [facility] Comment on above: Performed By: #### F SOUTH ####[facility] ([facility])[address], [place] [address] VIR Ferritinon 11-09-2024 Ferritin [Mass/Vol] 256 ng/mL 11 - 307 ng/mL [facility] Interpretation and review of laboratory results Normal [facility] Folateon 11-09-2024 Folate [Mass/Vol] 12.9 ng/mL 5.8 - PINF ng/mL [facility] Interpretation and review of laboratory results Normal [facility] Folate [Mass/Vol] 12.3 ng/mL 5.8 - PINF ng/mL [facility] Interpretation and review of laboratory results Normal [facility] HEPARIN PF4 ANTIBODYon 11-09 HEPARIN PF4 ANTIBODY (HIT) 0.137 OD Normal <0.400 [facility] Comment on above: Result Comment: ---- -- O.D. Interpretation--- < 0.400 Negative >= 0.400 Positive Performed By: #### H EPF4 ####[facility] ([facility])[address], [place] [address] VIR IRON AND TIBCon 11-09-2024 Iron [Mass/Vol] 29 ug/dL Low 50-170 [facility] Comment on above: Performed By: #### F EPR ####[facility] ([facility])[address], [place] [address] VIR IRON BINDING 258 ug/dL Normal 250-425 [facility] Comment on above: Performed By: #### F EPR ####[facility] ([facility])[address], [place] [address] VIR IRON SATURATION 11 % SATURATION Low 15-50 [facility] Comment on above: Performed By: #### F EPR ####[facility] ([facility])[address] [facility] [address], [place] [address] VIR Transferrin [Mass/Vol] 184 mg/dL Normal 168-336 [facility] Comment on above: Performed By: #### F EPR ####[facility] ([facility])[address], [place] [address] VIR Iron and TIBCon 11-09-2024 Interpretation and review of laboratory results Abnormal [facility] Iron [Mass/Vol] 29 ug/dL Low 50 - 170 ug/dL [facility] Iron binding capacity [Mass/Vol] 258 ug/dL 250 - 425 ug/dL [facility] Iron saturation [Mass fraction] 11 Low [facility] Transferrin [Mass or moles/Vol] 184 mg/dL 168 - 336 mg/dL [facility] LACTATE W/ REFLEXon 11-10-19 25 LACTATE W/REFLEX 1.1 mmol/L Normal 0.4-2.0 [facility] Comment on above: Order Comment: If la ctate is normal x2, may discontinue.Result did not trigger repeat Lactate,re-order if needed. Performed By: #### L ACTS ####[facility] ([address] [place] [address] VIR LACTATE W/REFLEX 0.9 mmol/L Normal 0.4-2.0 [facility] Comment on above: Order Comment: If la ctate is normal x2, may discontinue.Result did not trigger repeat Lactate,re-order if needed. Performed By: #### L ACTS ####[facility] ([address] [place] [address] VIR LACTATE W/REFLEX 1.1 mmol/L Normal 0.4-2.0 [facility] Comment on above: Order Comment: If la ctate is normal x2, may discontinue.Result did not trigger repeat Lactate,re-order if needed. Performed By: #### L ACTS ####[facility] ([address] [place] [address] VIR Lactate w/ Reflexon 11-10-19 Interpretation and review of laboratory results Normal [facility] Lactate (P katie) [Moles/Vol] 1.1 mmol/L 0.4 - 2.0 mmol/L [facility] Interpretation and review of laboratory results Normal [facility] Lactate (P katie) [Moles/Vol] 0.9 mmol/L 0.4 - 2.0 mmol/L [facility] Interpretation and review of laboratory results Normal [facility] Lactate (P katie) [Moles/Vol] 1.1 mmol/L 0.4 - 2.0 mmol/L [facility] Light Blue Topon 11-09-2024 Extra Tube Auto Resulted [facility] MAGNESIUMon 11-09-2024 Magnesium [Mass/Vol] 2.9 mg/dL High 1.8-2.6 [facility] Comment on above: Performed By: #### M G ####[facility] ([address] [address] VIR Magnesiumon 11-09-2024 Magnesium [Mass/Vol] 2.9 mg/dL High 1.8 - 2 .6 mg/dL [facility] No Panel Informationon 11-09 Interpretation and review of laboratory results Abnormal [facility] POTASSIUMon 11-09-2024 Potassium [Moles/Vol] 5.2 mmol/L High 3.5-5.0 [facility] Comment on above: Performed By: #### K ####[address] [address] VIR PROCALCITONINon 11-09-2024 PROCALCITONIN 0.45 ng/mL High <0.05 [facility] Comment on above: Order Comment: <0.50 ng/mL - Low risk of severe sepsis and/or septic shock.<2.00 ng/mL - Recommend retesting within 6-24 hours.>2.00 ng/mL - High risk of sepsis and/or septic shock. Performed By: #### P DAVID ####[facility] ([address] [address] VIR PROTEIN, URINE, RANDOMon URINE PROTEIN, RANDOM (MG/L) 210 mg/L High <120 [facility] Comment on above: Performed By: #### U TPR ####[facility] ([address] [address] VIR Potassiumon 11-09-2024 Interpretation and review of laboratory results Abnormal [facility] Potassium [Moles/Vol] 5.2 mmol/L High 3.5 - 5.0 mmol/L [facility] Procalcitoninon 11-09-2024 Interpretation and review of laboratory results Abnormal [facility] Procalcitonin IA [Mass/Vol] 0.45 ng/mL High NINF - 0.05 ng/mL [facility] Protein, urine, randomon Interpretation and review of laboratory results Abnormal [facility] Protein (U) [Mass/Vol] 210 mg/L High NINF - 120 mg/L [facility] SODIUM, URINE, RANDOMon 10-16 Sodium (U) [Moles/Vol] 20 mmol/L Normal Pr [facility] Comment on above: Performed By: #### U EHSAN ####[facility] (TT)[address] [facility] [address] [address] VIR Sodium, urine, randomon 10-16 Sodium (U) [Moles/Vol] 20 mmol/L Pr [facility] URINALYSISon 11-09-2024 Bilirubin Ql (U) Negative Normal Negative [facility] Comment on above: Order Comment: With microscopic exam of the urine sedimentUrine received without preservative. Delays in transport may affect results. Interpret with caution. A clinical correlation is recommended. Performed By: #### U A ####[facility] ([address] [address] VIR BLOOD/HGB Negative Normal Negative [facility] Comment on above: Order Comment: With microscopic exam of the urine sedimentUrine received without preservative. Delays in transport may affect results. Interpret with caution. A clinical correlation is recommended. Performed By: #### U A ####[facility] ([address] [place] [address] VIR Color (U) Yellow Normal Yellow, Colorless [facility] Comment on above: Order Comment: With microscopic exam of the urine sedimentUrine received without preservative. Delays in transport may affect results. Interpret with caution. A clinical correlation is recommended. Performed By: #### U A ####[facility] ([address] [address] VIR Glucose Ql (U) Negative Normal Negative, 250 mg/dL [facility] Comment on above: Order Comment: With microscopic exam of the urine sedimentUrine received without preservative. Delays in transport may affect results. Interpret with caution. A clinical correlation is recommended. Performed By: #### U A ####[facility] ([address] [address] VIR Ketones Ql (U) Negative Normal Negative [facility] Comment on above: Order Comment: With microscopic exam of the urine sedimentUrine received without preservative. Delays in transport may affect results. Interpret with caution. A clinical correlation is recommended. Performed By: #### U A ####[facility] ([address] [address] VIR Leukocyte esterase Test strip Ql (U) Trace Abnormal Negative [facility] Comment on above: Order Comment: With microscopic exam of the urine sedimentUrine received without preservative. Delays in transport may affect results. Interpret with caution. A clinical correlation is recommended. Performed By: #### U A ####[facility] ([address] [address] VIR Nitrite Ql (U) Negative Normal Negative [facility] Comment on above: Order Comment: With microscopic exam of the urine sedimentUrine received without preservative. Delays in transport may affect results. Interpret with caution. A clinical correlation is recommended. Performed By: #### U A ####[facility] ([address] [place] [address] VIR PH,URINE 6.0 Normal 5.0-8.5 [facility] Comment on above: Order Comment: With microscopic exam of the urine sedimentUrine received without preservative. Delays in transport may affect results. Interpret with caution. A clinical correlation is recommended. Performed By: #### U A ####[facility] ([address] [address] VIR Protein Ql (U) Negative Normal Negative [facility] Comment on above: Order Comment: With microscopic exam of the urine sedimentUrine received without preservative. Delays in transport may affect results. Interpret with caution. A clinical correlation is recommended. Performed By: #### U A ####[facility] ([address] [address] VIR Specific gravity (U) [Rel density] 1.020 Normal 1.003-1.035 [facility] Comment on above: Order Comment: With microscopic exam of the urine sedimentUrine received without preservative. Delays in transport may affect results. Interpret with caution. A clinical correlation is recommended. Performed By: #### U A ####[facility] ([address] [address] VIR SQUAMOUS EPITHELIUM 12 High 0-5 [facility] Comment on above: Order Comment: With microscopic exam of the urine sedimentUrine received without preservative. Delays in transport may affect results. Interpret with caution. A clinical correlation is recommended. Performed By: #### U A ####[facility] ([address] [address] VIR TURBIDITY Clear Normal Clear [facility] Comment on above: Order Comment: With microscopic exam of the urine sedimentUrine received without preservative. Delays in transport may affect results. Interpret with caution. A clinical correlation is recommended. Performed By: #### U A ####[facility] ([address] [address] VIR UROBILINOGEN 0.2 eu/dL Normal 0.2 eu/dL, 1.0 eu/dL [facility] Comment on above: Order Comment: With microscopic exam of the urine sedimentUrine received without preservative. Delays in transport may affect results. Interpret with caution. A clinical correlation is recommended. Performed By: #### U A ####[facility] ([address] [address] VIR W.B.CELLS 1 Normal 0-5 [facility] Comment on above: Order Comment: With microscopic exam of the urine sedimentUrine received without preservative. Delays in transport may affect results. Interpret with caution. A clinical correlation is recommended. Performed By: #### U A ####[facility] ([address] [address] VIR URINE CREATININE,RANDOMon URINE CREATININE,RDM 96.22 mg/dL Normal [facility] Comment on above: Performed By: #### U CRR ####[address] [address] VIR Urinalysison 11-09-2024 Bilirubin Ql (U) Negative Negative [facility] Color (U) Yellow Yellow, Colorless [facility] Epithelial cells Auto (Urine sed) [#/Area] 12 High 0 - 5 [facility] Glucose (U) [Mass/Vol] Negative Negat mirtha, 250 mg/dL [facility] Hemoglobin Auto test strip Ql (U) Negative Negative [facility] Interpretation and review of laboratory results Abnormal [facility] Ketones (U) [Mass/Vol] Negative Negative Pr [facility] Leukocyte esterase Auto test strip Ql (U) Trace Abnormal Negative [facility] Nitrite Auto test strip Ql (U) Negative Negative [facility] pH (U) 6 [pH] 5.0 - 8.5 [facility] Protein (U) [Mass/Vol] Negative Negative Pr [facility] Specific gravity Refractometry automated (U) [Rel density] 1.02 1.003 - 1.035 [facility] Turbidity Ql (U) Clear Clear [facility] Urobilinogen Qn (U) [id number] {Lance'U}/dL 0.2 eu/dL, 1.0 eu/dL [facility] WBC Auto (Urine sed) [#/Area] 1 0 - [address] [facility] Urine Creatinine,randomon Creatinine (U) [Mass/Vol] 96.22 mg/dL [facility] VITAMIN B12on 11-09-2024 Cobalamin (Vitamin B12) [Mass/Vol] 213 pg/mL Normal 180-914 [facility] Comment on above: Performed By: #### B 12 ####[facility] ([facility])[address], [place] [address] VIR Cobalamin (Vitamin B12) [Mass/Vol] 214 pg/mL Normal 180-914 [facility] Comment on above: Performed By: #### B 12 ####[facility] ([facility])[address], [place] [address] VIR VITAMIN D 25 HYDROXYon 11-09 VITAMIN D 25 HYD TOT 63.5 ng/mL Normal 30.0-100.0 [facility] Comment on above: Order Comment: Vitam in D status 25 [place] Vitamin D Deficiency <20 ng/mLInsufficiency 20-29 ng/mLSufficiency 30-100 ng/mLToxicity >100 ng/mLNOTE: A pediatric reference range has not been established by the buncher machine of this kit. The [place] [employer] recommends a Vitamin D level of = or >20ng/mL in infants and children. Performed By: #### V ITD ####[facility] ([facility])[address] [facility] [address], [place] [address] VIR Vitamin B12on 11-09-2024 Cobalamin (Vitamin B12) [Mass/Vol] 213 pg/mL 180 - 914 pg/mL [facility] Interpretation and review of laboratory results Normal [facility] Cobalamin (Vitamin B12) [Mass/Vol] 214 pg/mL 180 - 914 pg/mL [facility] Interpretation and review of laboratory results Normal [facility] Vitamin D 25 hydroxyon 11-09 25-hydroxyvitamin D3 [Mass/Vol] 63.5 ng/mL 30.0 - 100.0 ng/mL [facility] Interpretation and review of laboratory results Normal [facility] APTTon 11-08-2024 aPTT Coag (PPP) [Time] 33 s Pr [facility] Interpretation and review of laboratory results Normal [facility] aPTT Coag (Bld) [Time] 33 s Normal 26-37 Pr [facility] Comment on above: Performed By: #### P TT ####[facility] ([address] [address] VIR B-TYPE NATRIURETIC PEPTIDEon 11-08-2024 Natriuretic peptide B (Bld) [Mass/Vol] 57 pg/mL Normal <=100 [facility] Comment on above: Performed By: #### B KETTLE COOK ####[facility] ([address] [address] VIR B-type natriuretic peptideOr dered By: Evaristo King on 11-08-2024 Interpretation and review of laboratory results Normal [facility] Natriuretic peptide B (Bld) [Mass/Vol] 57 pg/mL NINF - 100 pg/mL [facility] BEDSIDE GLUCOSEon 11-08-2024 Glucose [Mass/Vol] 156 mg/dL High 65-99 [facility] Comment on above: Performed By: #### B EDG ####[facility])[address] [place] [address] [place] [address] VIR Glucose [Mass/Vol] 116 mg/dL High 65-99 [facility] Comment on above: Performed By: #### B EDG ####[facility])[address] [place] [address] [place] [address] VIR BLOOD CULTUREon 11-08-2024 Bacteria identified Cx Nom (Bld) CULTURE RESULTS NO GROWTH 5 DAYS Normal [facility] Comment on above: Order Comment: *SIRS Criteria: (must display 2 without other explanation)-Temperature < 36 or >38-Pulse >90-Resp rate >20-WBC less than 4K or greater than 12KRepeat blood cultures not needed:-To document that a blood culture is a contaminant when 1 of 2 bottles is positive for a common contaminant (already listed in [facility] with the culture result)-To document clearance of gram negative bacteremia in patients with suspected urinary source who are improvingSuboptimal volume of blood collected, Results may be affected. Performed By: #### B C ####[facility] ([facility])[address] [facility] [address], [place] [address] VIR Bacteria identified Cx Nom (Bld) CULTURE RESULTS NO GROWTH 5 DAYS Normal [facility] Comment on above: Order Comment: *SIRS Criteria: (must display 2 without other explanation)-Temperature < 36 or >38-Pulse >90-Resp rate >20-WBC less than 4K or greater than 12KRepeat blood cultures not needed:-To document that a blood culture is a contaminant when 1 of 2 bottles is positive for a common contaminant (already listed in [facility] with the culture result)-To document clearance of gram negative bacteremia in patients with suspected urinary source who are improving Performed By: #### B C ####[facility] ([facility])[address], [place] [address] VIR Bedside Glucose *Place/Obtai n serum glucose if >500 per glucometer.on 11-08-2024 Glucose [Mass/Vol] 156 mg/dL High 65 - 99 mg/dL [facility] Interpretation and review of laboratory results Abnormal [facility] Glucose [Mass/Vol] 116 mg/dL High 65 - 99 mg/dL [facility] Interpretation and review of laboratory results Abnormal [facility] C-REACTIVE PROTEINon 025 C REACTIVE PROTEIN 16.6 mg/dL High <=0.7 [facility] Comment on above: Performed By: #### C RP ####[facility] ([address] [address] VIR C-reactive proteinon 025 CRP [Mass/Vol] 16.6 mg/dL High NINF - 0.7 mg/dL [facility] Interpretation and review of laboratory results Abnormal [facility] CBC WITH AUTO DIFFERENTIALon 11-08-2024 CELLAVISION ATYPICAL LYMPHOCYTES RELATIVE PERCENT BY MANUAL COUNT 1 % Normal [facility] Comment on above: Result Comment: This is an appended report. These results have been appended to a previously preliminary verified report. Performed By: #### C BCA ####[facility] ([address] [address] VIR CELLAVISION DIFFERENTIAL TYPE CELLAVISION DIFFERENTIAL Normal [facility] Comment on above: Result Comment: This is an appended report. These results have been appended to a previously preliminary verified report. Performed By: #### C BCA ####[facility] ([address] [address] VIR CELLAVISION EOSINOPHILS ABSOLUTE COUNT (10*3/UL) BY MANUAL COUNT 0.2 10*3/uL Normal 0.0-0.4 [facility] Comment on above: Result Comment: This is an appended report. These results have been appended to a previously preliminary verified report. Performed By: #### C BCA ####[facility] ([place])[address] [facility] [facility] [place] [address] VIR CELLAVISION EOSINOPHILS PERCENT BY MANUAL COUNT 2 % Normal [facility] Comment on above: Result Comment: This is an appended report. These results have been appended to a previously preliminary verified report. Performed By: #### C BCA ####[facility])[address] [place] [address] VIR CELLAVISION LYMPHOCYTES ABSOLUTE COUNT (10*3/UL) BY MANUAL COUNT 1.5 10*3/uL Normal 1.0-3.5 [facility] Comment on above: Result Comment: This is an appended report. These results have been appended to a previously preliminary verified report. Performed By: #### C BCA ####[facility])[address] [place] [address] VIR CELLAVISION LYMPHOCYTES RELATIVE PERCENT BY MANUAL COUNT 11 % Normal [facility] Comment on above: Result Comment: This is an appended report. These results have been appended to a previously preliminary verified report. Performed By: #### C BCA ####[facility])[address] [place] [address] VIR CELLAVISION MONOCYTES ABSOLUTE COUNT (10*3/UL) IN BLOOD BY MANUAL COUNT 1.5 10*3/uL High 0.0-0.9 [facility] Comment on above: Result Comment: This is an appended report. These results have been appended to a previously preliminary verified report. Performed By: #### C BCA ####[facility])[address] [place] [address] VIR CELLAVISION MONOCYTES RELATIVE PERCENT BY MANUAL COUNT 12 % Normal [facility] Comment on above: Result Comment: This is an appended report. These results have been appended to a previously preliminary verified report. Performed By: #### C BCA ####[facility])[address] [place] [address] VIR CELLAVISION NEUTROPHILS ABSOLUTE COUNT BY MANUAL COUNT 9.8 10*3/uL High 1.5-6.6 [facility] Comment on above: Result Comment: This is an appended report. These results have been appended to a previously preliminary verified report. Performed By: #### C BCA ####[facility] ([address] [address] VIR CELLAVISION NEUTROPHILS RELATIVE PERCENT BY MANUAL COUNT 75 % Normal [facility] Comment on above: Result Comment: This is an appended report. These results have been appended to a previously preliminary verified report. Performed By: #### C BCA ####[facility] ([address] [address] VIR Erythrocyte distribution width (RBC) [Ratio] 13.5 % Normal 11.5-15 [facility] Comment on above: Performed By: #### C BCA ####[facility] ([address] [address] VIR Hematocrit (Bld) [Volume fraction] 30.1 % Low 35-47 [facility] Comment on above: Performed By: #### C BCA ####[facility] ([address] [address] VIR Hemoglobin (Bld) [Mass/Vol] 10.1 g/dL Low 11.7-15.5 [facility] Comment on above: Performed By: #### C BCA ####[facility] ([address] [address] VIR MCH (RBC) [Entitic mass] 30.3 pg Normal 27-34 [facility] Comment on above: Performed By: #### C BCA ####[facility] ([address] [address] VIR MCHC (RBC) [Mass/Vol] 33.6 g/dL Normal 32-36 [facility] Comment on above: Performed By: #### C BCA ####[facility] ([address] [address] VIR MCV (RBC) [Entitic vol] 90 fL Normal 80-100 [facility] Comment on above: Performed By: #### C BCA ####[facility] ([address] [address] VIR Platelet mean volume (Bld) [Entitic vol] 7.3 fL Normal 7-12 [facility] Comment on above: Performed By: #### C BCA ####[facility] ([address] [address] VIR Platelets (Bld) [#/Vol] 204 10*3/uL Normal 150-450 [facility] Comment on above: Performed By: #### C BCA ####[facility] ([address] [address] VIR RBC COUNT 3.34 X10E12/L Low 3.8-5.2 [facility] Comment on above: Performed By: #### C BCA ####[facility] ([address] [address] VIR WBC (Bld) [#/Vol] 13.1 10*3/uL High 4-11 [facility] Comment on above: Performed By: #### C BCA ####[facility] ([address] [address] VIR CBC auto differentialon 2 Differential cell count method Nom (Bld) CELLAVISION DIFFERENTIAL [facility] Eosinophils (Bld) [#/Vol] 0.2 10*3/uL 0.0 - 0.4 10*3/uL [facility] Eosinophils/100 WBC (Bld) 2 % [facility] Erythrocyte distribution width (RBC) [Ratio] 13.5 % 11.5 - 15 % [facility] Hematocrit (Bld) [Volume fraction] 30.1 % Low 35 - 47 % [facility] Hemoglobin (Bld) [Mass/Vol] 10.1 g/dL Low 11.7 - 15.5 g/dL [facility] Interpretation and review of laboratory results Abnormal [facility] Lymphocytes (Bld) [#/Vol] 1.5 10*3/uL 1.0 - 3.5 10*3/uL [facility] MCH (RBC) [Entitic mass] 30.3 pg 27 - 34 pg [facility] MCHC (RBC) [Mass/Vol] 33.6 g/dL 32 - 3 6 g/dL [facility] MCV (RBC) [Entitic vol] 90 fL 80 - 100 fL [facility] Monocytes (Bld) [#/Vol] 1.5 10*3/uL High 0.0 - 0.9 10*3/uL [facility] Monocytes/100 WBC (Bld) 12 % [facility] Neutrophils (Bld) [#/Vol] 9.8 10*3/uL High 1.5 - 6.6 10*3/uL [facility] Neutrophils/100 WBC (Bld) 75 % [facility] Platelet mean volume (Bld) [Entitic vol] 7.3 fL 7 - 12 fL [facility] Platelets (Bld) [#/Vol] 204 10*3/uL [facility] RBC (Bld) [#/Vol] 3.34 10*6/uL Low [facility] Variant lymphocytes/100 WBC (Bld) 11 % [facility] Variant lymphocytes/100 WBC (Bld) 1 % [facility] WBC LM Ql (Sput) 13.1 High [facility] COMPREHENSIVE METABOLIC PANE José Luis 11-08-2024 Albumin [Mass/Vol] 3.3 g/dL Normal 3.2-5.3 [facility] Comment on above: Performed By: #### C MP ####[facility])[address] [place] [address].[place] [address] VIR ALP [Catalytic activity/Vol] 84 U/L Normal 39-130 [facility] Comment on above: Performed By: #### C MP ####[facility] ([place] [address] [place] [address] VIR ALT [Catalytic activity/Vol] 14 U/L Normal <=31 [facility] Comment on above: Performed By: #### C MP ####[facility] ([place] [address] [place] [address] VIR Anion gap [Moles/Vol] 9 mmol/L Normal 5-15 [facility] Comment on above: Performed By: #### C MP ####[facility] ([place] [address] [place] [address] VIR AST [Catalytic activity/Vol] 26 U/L Normal <=41 [facility] Comment on above: Performed By: #### C MP ####[facility] ([address] [place] [address] VIR Bilirubin [Mass/Vol] 0.6 mg/dL Normal 0.3-1.2 [facility] Comment on above: Performed By: #### C MP ####[facility] ([address] [address] VIR Calcium [Mass/Vol] 8.7 mg/dL Normal 8.5-10.5 [facility] Comment on above: Performed By: #### C MP ####[facility] ([place] [address] [place] [address] VIR Chloride [Moles/Vol] 101 mmol/L Normal 98-109 [facility] Comment on above: Performed By: #### C MP ####[facility] ([place] [address] [place] [address] VIR CO2 [Moles/Vol] 22 mmol/L Normal 22-32 [facility] Comment on above: Performed By: #### C MP ####[facility] ([place] [address] [place] [address] VIR Creatinine [Mass/Vol] 2.67 mg/dL High 0.40-1.00 [facility] Comment on above: Result Comment: METH OD TRACEABLE TO IDMS STANDARD Performed By: #### C MP ####[facility] [facility] [place] [address] [place] [address] VIR GFR/1.73 sq M.predicted among non-blacks MDRD (S/P/Bld) [Vol rate/Area] 17 mL/min/{1.73_m2} Low >=60 [facility] Comment on above: Result Comment: eGFR not reported due to non-numeric value for Creatinine.Reported eGFR is based on theCKD-EPI 2020 equation that doesnot use a race coefficient. Performed By: #### C MP ####[facility] ([address] [place] [address] VIR Glucose [Mass/Vol] 118 mg/dL High 65-99 [facility] Comment on above: Performed By: #### C MP ####[facility] ([address] [place] [address] VIR Potassium [Moles/Vol] 5.5 mmol/L High 3.5-5.0 [facility] Comment on above: Performed By: #### C MP ####[facility] ([address] [place] [address] VIR Protein [Mass/Vol] 7.2 g/dL Normal 6.0-8.0 [facility] Comment on above: Performed By: #### C MP ####[facility] ([address] [place] [address] VIR Sodium [Moles/Vol] 132 mmol/L Low 134-146 [facility] Comment on above: Performed By: #### C MP ####[facility] ([address] [place] [address] VIR Urea nitrogen [Mass/Vol] 81 mg/dL High 5-27 [facility] Comment on above: Performed By: #### C ####[facility] ([facility] [place] [address].[place] [address] VIR Comprehensive metabolic pane josé lius 11-08-2024 Albumin [Mass/Vol] 3.3 g/dL 3.2 - 5.3 g/dL [facility] ALP [Catalytic activity/Vol] 84 U/L 39 - 130 U/L [facility] ALT No additional P-5'-P [Catalytic activity/Vol] 14 U/L NINF - 31 U/L [facility] Anion gap [Moles/Vol] 9 mmol/L 5 - 15 mmol/L [facility] AST [Catalytic activity/Vol] 26 U/L NINF - 41 U/L [facility] Bilirubin [Mass/Vol] 0.6 mg/dL 0.3 - 1 .2 mg/dL [facility] Calcium [Mass/Vol] 8.7 mg/dL 8.5 - 10. 5 mg/dL [facility] Chloride [Moles/Vol] 101 mmol/L 98 - 10 9 mmol/L [facility] CO2 [Moles/Vol] 22 mmol/L 22 - 32 mmol/L [facility] Creatinine [Mass/Vol] 2.67 mg/dL High 0.40 - 1.00 mg/dL [facility] EGFR Non-Race Dependent 17 Low - PINF [facility] Glucose [Mass/Vol] 118 mg/dL High 65 - 99 mg/dL [facility] Potassium [Moles/Vol] 5.5 mmol/L High 3.5 - 5.0 mmol/L [facility] Protein [Mass/Vol] 7.2 g/dL 6.0 - 8.0 g/dL [facility] Sodium [Moles/Vol] 132 mmol/L Low 134 - 146 mmol/L [facility] Urea nitrogen [Mass/Vol] 81 mg/dL High 5 - 27 mg/dL [facility] ERYTHROCYTE SEDIMENTATION RA TE (ESR)on 11-08-2024 ESR, ERYTHROCYTE SEDIMENTATION RATE 89 mm/h High 0-30 [facility] Comment on above: Performed By: #### E SR ####[facility] (TTH)[address] [address] VIR Erythrocyte Sedimentation Ra te (ESR)on 11-08-2024 ESR (Bld) [Velocity] 89 mm/h High 0 - 30 mm/h [facility] Interpretation and review of laboratory results Abnormal [facility] LACTATE W/ REFLEXon 11-09-19 LACTATE W/REFLEX 1.2 mmol/L Normal 0.4-2.0 [facility] Comment on above: Order Comment: If la ctate is normal x2, may discontinue.Result did not trigger repeat Lactate,re-order if needed. Performed By: #### L ACTS ####[facility])[address] [place] [address] VIR LACTATE W/REFLEX 0.9 mmol/L Normal 0.4-2.0 [facility] Comment on above: Order Comment: Resul t did not trigger repeat Lactate,re-order if needed. Performed By: #### L ACTS ####[facility])[address] [place] [address] VIR Lactate w/ Reflexon 11-09-19 Interpretation and review of laboratory results Normal [facility] Lactate (P katie) [Moles/Vol] 1.2 mmol/L 0.4 - 2.0 mmol/L [facility] Interpretation and review of laboratory results Normal [facility] Lactate (P katie) [Moles/Vol] 0.9 mmol/L 0.4 - 2.0 mmol/L [facility] Light Blue Topon 11-08-2024 Extra Tube Auto Resulted [facility] MAGNESIUMon 11-08-2024 Magnesium [Mass/Vol] 2.9 mg/dL High 1.8-2.6 [facility] Comment on above: Performed By: #### M G ####[facility])[address] [place] [address] [place] [address] VIR Magnesiumon 11-08-2024 Magnesium [Mass/Vol] 2.9 mg/dL High 1.8 - 2 .6 mg/dL [facility] No Panel Informationon 11-08 Interpretation and review of laboratory results Abnormal [facility] POTASSIUMon 11-08-2024 Potassium [Moles/Vol] 5.3 mmol/L High 3.5-5.0 [facility] Comment on above: Performed By: #### K ####[facility] ([address] [place] [address] VIR PROCALCITONINon 11-08-2024 PROCALCITONIN 0.27 ng/mL High <0.05 [facility] Comment on above: Order Comment: <0.50 ng/mL - Low risk of severe sepsis and/or septic shock.<2.00 ng/mL - Recommend retesting within 6-24 hours.>2.00 ng/mL - High risk of sepsis and/or septic shock. Performed By: #### P DAVID ####[facility] ([address] [place] [address] VIR PST TOPon 11-08-2024 Extra Tube Auto Resulted [facility] Potassiumon 11-08-2024 Interpretation and review of laboratory results Abnormal [facility] Potassium [Moles/Vol] 5.3 mmol/L High 3.5 - 5.0 mmol/L [facility] Procalcitoninon 11-08-2024 Interpretation and review of laboratory results Abnormal [facility] Procalcitonin IA [Mass/Vol] 0.27 ng/mL High NINF - 0.05 ng/mL [facility] SUPERFICIAL WOUND CULTUREon 11-08-2024 SUPERFICIAL WOUND CULTURE Susceptible [facility] Comment on above: Performed By: #### W CSUP ####[facility] (TT)[address] [facility] [address], [place] [address] VIR XR FOOT LT MIN 3 VWSon 11-08 XR FOOT LT MIN 3 VWS Normal [facility] XR FOOT RT MIN 3 VWSon 11-08 XR FOOT RT MIN 3 VWS Normal [facility] XR Foot - left 3 or 4 Viewso n 11-08-2024 SECTRAPACS [facility] Radiology Study observation (narrative) [facility] XR Foot - left 3 or 4 ViewsO rdered By: Randolph Ramirez on 11-08-2024 [facility] Work Phone: XR Foot - right 3 Viewson SECTRAPACS [facility] Radiology Study observation (narrative) [facility] BEDSIDE GLUCOSEon 10-27-2024 Glucose [Mass/Vol] 257 mg/dL High 65-99 [facility] Comment on above: Performed By: #### B EDG ####[facility] ([address] [address] VIR Glucose [Mass/Vol] 170 mg/dL High 65-99 [facility] Comment on above: Performed By: #### B EDG ####[facility] ([address] [place] [address] VIR Glucose [Mass/Vol] 92 mg/dL Normal 65-99 [facility] Comment on above: Performed By: #### B EDG ####[facility] ([address] [place] [address] VIR C-REACTIVE PROTEINon 025 C REACTIVE PROTEIN 11.9 mg/dL High <=0.7 [facility] Comment on above: Performed By: #### C RP ####[facility] ([address] [address] VIR CBC WITH AUTO DIFFERENTIALon 10-27-2024 CELLAVISION BASOPHILS ABSOLUTE COUNT (10*3/UL) BY MANUAL COUNT 0.3 10*3/uL High 0.0-0.2 [facility] Comment on above: Result Comment: This is an appended report. These results have been appended to a previously preliminary verified report. Performed By: #### C BCA ####[facility] ([address] [address] VIR CELLAVISION BASOPHILS RELATIVE PERCENT BY MANUAL COUNT 3 % Normal [facility] Comment on above: Result Comment: This is an appended report. These results have been appended to a previously preliminary verified report. Performed By: #### C BCA ####[facility] ([address] [address] VIR CELLAVISION DIFFERENTIAL TYPE CELLAVISION DIFFERENTIAL Normal [facility] Comment on above: Result Comment: This is an appended report. These results have been appended to a previously preliminary verified report. Performed By: #### C BCA ####[facility] ([address] [address] VIR CELLAVISION EOSINOPHILS ABSOLUTE COUNT (10*3/UL) BY MANUAL COUNT 0.1 10*3/uL Normal 0.0-0.4 [facility] Comment on above: Result Comment: This is an appended report. These results have been appended to a previously preliminary verified report. Performed By: #### C BCA ####[facility] ([address] [address] VIR CELLAVISION EOSINOPHILS PERCENT BY MANUAL COUNT 1 % Normal [facility] Comment on above: Result Comment: This is an appended report. These results have been appended to a previously preliminary verified report. Performed By: #### C BCA ####[facility] ([address] [address] VIR CELLAVISION LYMPHOCYTES ABSOLUTE COUNT (10*3/UL) BY MANUAL COUNT 2.3 10*3/uL Normal 1.0-3.5 [facility] Comment on above: Result Comment: This is an appended report. These results have been appended to a previously preliminary verified report. Performed By: #### C BCA ####[facility])[address] [place] [address] VIR CELLAVISION LYMPHOCYTES RELATIVE PERCENT BY MANUAL COUNT 20 % Normal [facility] Comment on above: Result Comment: This is an appended report. These results have been appended to a previously preliminary verified report. Performed By: #### C BCA ####[facility])[address] [place] [address] VIR CELLAVISION MONOCYTES ABSOLUTE COUNT (10*3/UL) IN BLOOD BY MANUAL COUNT 1.1 10*3/uL High 0.0-0.9 [facility] Comment on above: Result Comment: This is an appended report. These results have been appended to a previously preliminary verified report. Performed By: #### C BCA ####[facility])[address] [place] [address] VIR CELLAVISION MONOCYTES RELATIVE PERCENT BY MANUAL COUNT 10 % Normal [facility] Comment on above: Result Comment: This is an appended report. These results have been appended to a previously preliminary verified report. Performed By: #### C BCA ####[facility])[address] [place] [address] VIR CELLAVISION NEUTROPHILS ABSOLUTE COUNT BY MANUAL COUNT 7.7 10*3/uL High 1.5-6.6 [facility] Comment on above: Result Comment: This is an appended report. These results have been appended to a previously preliminary verified report. Performed By: #### C BCA ####[facility])[address] [place] [address] VIR CELLAVISION NEUTROPHILS RELATIVE PERCENT BY MANUAL COUNT 67 % Normal [facility] Comment on above: Result Comment: This is an appended report. These results have been appended to a previously preliminary verified report. Performed By: #### C BCA ####[facility] ([address] [address] VIR Erythrocyte distribution width (RBC) [Ratio] 13.5 % Normal 11.5-15 [facility] Comment on above: Performed By: #### C BCA ####[facility] ([address] [address] VIR Hematocrit (Bld) [Volume fraction] 30.3 % Low 35-47 [facility] Comment on above: Performed By: #### C BCA ####[facility] ([address] [address] VIR Hemoglobin (Bld) [Mass/Vol] 10.2 g/dL Low 11.7-15.5 [facility] Comment on above: Performed By: #### C BCA ####[facility] ([address] [address] VIR MCH (RBC) [Entitic mass] 30.0 pg Normal 27-34 [facility] Comment on above: Performed By: #### C BCA ####[facility] ([address] [address] VIR MCHC (RBC) [Mass/Vol] 33.5 g/dL Normal 32-36 [facility] Comment on above: Performed By: #### C BCA ####[facility] ([address] [address] VIR MCV (RBC) [Entitic vol] 90 fL Normal 80-100 [facility] Comment on above: Performed By: #### C BCA ####[facility] ([address] [address] VIR Platelet mean volume (Bld) [Entitic vol] 7.7 fL Normal 7-12 [facility] Comment on above: Performed By: #### C BCA ####[facility])[address] [place], [place] [address] [address] VIR Platelets (Bld) [#/Vol] 384 10*3/uL Normal 150-450 [facility] Comment on above: Performed By: #### C BCA ####[facility])[address] [place], [place] [address] [place] [address] VIR RBC COUNT 3.39 X10E12/L Low 3.8-5.2 [facility] Comment on above: Performed By: #### C BCA ####[facility])[address] [place], [place] [address] [address] VIR WBC (Bld) [#/Vol] 11.6 10*3/uL High 4-11 [facility] Comment on above: Performed By: #### C BCA ####[facility] ([address] [place] [address] VIR COMPREHENSIVE METABOLIC PANE [facility] 10-27-2024 Albumin [Mass/Vol] 2.9 g/dL Low 3.2-5.3 [facility] Comment on above: Performed By: #### C MP ####[facility] ([address] [place] [address] VIR ALP [Catalytic activity/Vol] 82 U/L Normal 39-130 [facility] Comment on above: Performed By: #### C MP ####[facility] ([address] [place] [address] VIR ALT [Catalytic activity/Vol] 9 U/L Normal <=31 [facility] Comment on above: Performed By: #### C MP ####[facility] ([address] [place] [address] VIR Anion gap [Moles/Vol] 11 mmol/L Normal 5-15 [facility] Comment on above: Performed By: #### C MP ####[facility] ([place] [address] [place] [address] VIR AST [Catalytic activity/Vol] 10 U/L Normal <=41 [facility] Comment on above: Performed By: #### C MP ####[facility] ([address] [place] [address] VIR Bilirubin [Mass/Vol] 0.6 mg/dL Normal 0.3-1.2 [facility] Comment on above: Performed By: #### C MP ####[facility] ([address] [place] [address] VIR Calcium [Mass/Vol] 8.9 mg/dL Normal 8.5-10.5 [facility] Comment on above: Performed By: #### C MP ####[facility] ([address] [place] [address] VIR Chloride [Moles/Vol] 105 mmol/L Normal 98-109 [facility] Comment on above: Performed By: #### C MP ####[facility] ([address] [place] [address] VIR CO2 [Moles/Vol] 22 mmol/L Normal 22-32 [facility] Comment on above: Performed By: #### C MP ####[facility] ([address] [place] [address] VIR Creatinine [Mass/Vol] 1.76 mg/dL High 0.40-1.00 [facility] Comment on above: Result Comment: METH OD TRACEABLE TO IDMS STANDARD Performed By: #### C MP ####[facility] ([address] [place] [address] VIR GFR/1.73 sq M.predicted among non-blacks MDRD (S/P/Bld) [Vol rate/Area] 28 mL/min/{1.73_m2} Low >=60 [facility] Comment on above: Result Comment: eGFR not reported due to non-numeric value for Creatinine.Reported eGFR is based on theCKD-EPI 2020 equation that doesnot use a race coefficient. Performed By: #### C MP ####[facility] ([place] [address] [place] [address] VIR Glucose [Mass/Vol] 79 mg/dL Normal 65-99 [facility] Comment on above: Performed By: #### C MP ####[facility] ([address] [place] [address] VIR Potassium [Moles/Vol] 4.1 mmol/L Normal 3.5-5.0 [facility] Comment on above: Performed By: #### C MP ####[facility] ([address] [place] [address] VIR Protein [Mass/Vol] 6.5 g/dL Normal 6.0-8.0 [facility] Comment on above: Performed By: #### C MP ####[facility] ([address] [place] [address] VIR Sodium [Moles/Vol] 138 mmol/L Normal 134-146 [facility] Comment on above: Performed By: #### C MP ####[facility] ([address] [place] [address] VIR Urea nitrogen [Mass/Vol] 57 mg/dL High 5-27 [facility] Comment on above: Performed By: #### C MP ####[facility] ([address] [place] [address] VIR MAGNESIUMon 10-27-2024 Magnesium [Mass/Vol] 2.8 mg/dL High 1.8-2.6 [facility] Comment on above: Performed By: #### M G ####[facility] ([address] [place] [address] VIR BEDSIDE GLUCOSEon 10-26-2024 Glucose [Mass/Vol] 285 mg/dL High 65-99 [facility] Comment on above: Performed By: #### B EDG ####[facility] ([address] [place] [address] VIR Glucose [Mass/Vol] 298 mg/dL High 65-99 [facility] Comment on above: Performed By: #### B EDG ####[facility] ([address] [address] VIR Glucose [Mass/Vol] 237 mg/dL High 65-99 [facility] Comment on above: Performed By: #### B EDG ####[facility] ([address] [address] VIR Glucose [Mass/Vol] 151 mg/dL High 65-99 [facility] Comment on above: Performed By: #### B EDG ####[facility] ([address] [address] VIR C-REACTIVE PROTEINon 025 C REACTIVE PROTEIN 12.0 mg/dL High <=0.7 [facility] Comment on above: Performed By: #### C RP ####[facility] ([address] [address] VIR CBC WITH AUTO DIFFERENTIALon 10-26-2024 Basophilic stippling LM Ql (Bld) 1+ Normal [facility] Comment on above: Result Comment: This is an appended report. These results have been appended to a previously preliminary verified report. Performed By: #### C BCA ####[facility] ([address] [address] VIR BASOPHILS ABSOLUTE COUNT (10*3/UL) BY AUTOMATED COUNT 0.1 10*3/uL Normal 0.0-0.2 [facility] Comment on above: Result Comment: This is an appended report. These results have been appended to a previously preliminary verified report. Performed By: #### C BCA ####[facility] ([address] [address] VIR BASOPHILS RELATIVE PERCENT BY AUTOMATED COUNT 1.0 % Normal [facility] Comment on above: Result Comment: This is an appended report. These results have been appended to a previously preliminary verified report. Performed By: #### C BCA ####[facility] ([address] [address] VIR CELLAVISION DIFFERENTIAL TYPE AUTOMATED DIFFERENTIAL Normal [facility] Comment on above: Result Comment: This is an appended report. These results have been appended to a previously preliminary verified report. Performed By: #### C BCA ####[address] [address] VIR CELLAVISION POLYCHROMASIA IN BLOOD BY LIGHT MICROSCOPY 1+ Normal [facility] Comment on above: Result Comment: This is an appended report. These results have been appended to a previously preliminary verified report. Performed By: #### C BCA ####[facility] ([address] [address] VIR Eosinophils (Bld) [#/Vol] 0.4 10*3/uL Normal 0.0-0.4 [facility] Comment on above: Result Comment: This is an appended report. These results have been appended to a previously preliminary verified report. Performed By: #### C BCA ####[facility] ([address] [address] VIR EOSINOPHILS RELATIVE PERCENT BY AUTOMATED COUNT 3.3 % Normal [facility] Comment on above: Result Comment: This is an appended report. These results have been appended to a previously preliminary verified report. Performed By: #### C BCA ####[facility] ([address] [address] VIR Erythrocyte distribution width (RBC) [Ratio] 13.3 % Normal 11.5-15 [facility] Comment on above: Result Comment: This is a corrected result. Previous result was 13.7 % on 10/26/2024 at 0619 EDT Performed By: #### C BCA ####[facility] ([address] [address] VIR Hematocrit (Bld) [Volume fraction] 31.5 % Low 35-47 [facility] Comment on above: Performed By: #### C BCA ####[facility] ([address] [address] VIR Hemoglobin (Bld) [Mass/Vol] 10.5 g/dL Low 11.7-15.5 [facility] Comment on above: Performed By: #### C BCA ####[facility] ([address] [address] VIR LYMPHOCYTES ABSOLUTE COUNT (10*3/UL) BY AUTOMATED COUNT 2.6 10*3/uL Normal 1.0-3.5 [facility] Comment on above: Result Comment: This is an appended report. These results have been appended to a previously preliminary verified report. Performed By: #### C BCA ####[facility] ([address] [address] VIR LYMPHOCYTES RELATIVE PERCENT BY AUTOMATED COUNT 22.0 % Normal [facility] Comment on above: Result Comment: This is an appended report. These results have been appended to a previously preliminary verified report. Performed By: #### C BCA ####[facility] ([address] [address] VIR MCH (RBC) [Entitic mass] 30.3 pg Normal 27-34 [facility] Comment on above: Performed By: #### C BCA ####[facility] ([address] [address] VIR MCHC (RBC) [Mass/Vol] 33.3 g/dL Normal 32-36 [facility] Comment on above: Result Comment: This is a corrected result. Previous result was 33.4 g/dL on 10/26/2024 at 0619 EDT Performed By: #### C JOSSIE ####[facility] ([address] [address] VIR MCV (RBC) [Entitic vol] 91 fL Normal 80-100 [facility] Comment on above: Performed By: #### C JOSSIE ####[facility] ([address] [address] VIR MONOCYTES ABSOLUTE COUNT (10*3/UL) BY AUTOMATED COUNT 1.7 10*3/uL High 0.0-0.9 [facility] Comment on above: Result Comment: This is an appended report. These results have been appended to a previously preliminary verified report. Performed By: #### C JOSSIE ####[facility] ([address] [address] VIR MONOCYTES RELATIVE PERCENT BY AUTOMATED COUNT 14.4 % Normal [facility] Comment on above: Result Comment: This is an appended report. These results have been appended to a previously preliminary verified report. Performed By: #### C BCA ####[facility] ([address] [address] VIR NEUTROPHILS ABSOLUTE COUNT BY AUTOMATED COUNT 7.0 10*3/uL High 1.5-6.6 [facility] Comment on above: Result Comment: This is an appended report. These results have been appended to a previously preliminary verified report. Performed By: #### C BCA ####[address] [address] VIR NEUTROPHILS RELATIVE PERCENT BY AUTOMATED COUNT 59.3 % Normal [facility] Comment on above: Result Comment: This is an appended report. These results have been appended to a previously preliminary verified report. Performed By: #### C BCA ####[place] [address] [place] [address] VIR Platelet mean volume (Bld) [Entitic vol] 8.1 fL Normal 7-12 [facility] Comment on above: Result Comment: This is a corrected result. Previous result was 8.0 fL on 10/26/2024 at 0619 EDT Performed By: #### C BCA ####[facility] ([address] [place] [address] VIR Platelets (Bld) [#/Vol] 368 10*3/uL Normal 150-450 [facility] Comment on above: Result Comment: This is a corrected result. Previous result was 378 X10E9/L on 10/26/2024 at 0619 EDT Performed By: #### C BCA ####[facility] ([address] [place] [address] VIR RBC COUNT 3.46 X10E12/L Low 3.8-5.2 [facility] Comment on above: Result Comment: This is a corrected result. Previous result was 3.48 X10E12/L on 10/26/2024 at 0619 EDT Performed By: #### C BCA ####[facility] ([address] [place] [address] VIR WBC (Bld) [#/Vol] 11.8 10*3/uL High 4-11 [facility] Comment on above: Result Comment: This is a corrected result. Previous result was 11.6 x10E9/L on 10/26/2024 at 0619 EDT Performed By: #### C BCA ####[facility] ([address] [place] [address] VIR COMPREHENSIVE METABOLIC PANE José Luis 10-26-2024 Albumin [Mass/Vol] 3.0 g/dL Low 3.2-5.3 [facility] Comment on above: Performed By: #### C MP ####[facility] ([address] [place] [address] VIR ALP [Catalytic activity/Vol] 81 U/L Normal 39-130 [facility] Comment on above: Performed By: #### C MP ####[facility] ([facility])[address] [place] [address] VIR ALT [Catalytic activity/Vol] 9 U/L Normal <=31 [facility] Comment on above: Performed By: #### C MP ####[facility] ([facility] [place] [address] VIR Anion gap [Moles/Vol] 13 mmol/L Normal 5-15 [facility] Comment on above: Performed By: #### C MP ####[facility] ([place] [address] [place] [address] VIR AST [Catalytic activity/Vol] 10 U/L Normal <=41 [facility] Comment on above: Performed By: #### C MP ####[facility] ([facility] [place] [address] VIR Bilirubin [Mass/Vol] 0.6 mg/dL Normal 0.3-1.2 [facility] Comment on above: Performed By: #### C MP ####[facility] ([place] [address] [place] [address] VIR Calcium [Mass/Vol] 8.9 mg/dL Normal 8.5-10.5 [facility] Comment on above: Performed By: #### C MP ####[facility] ([facility] [place] [address] VIR Chloride [Moles/Vol] 102 mmol/L Normal 98-109 [facility] Comment on above: Performed By: #### C MP ####[facility] ([place] [address] [place] [address] VIR CO2 [Moles/Vol] 22 mmol/L Normal 22-32 [facility] Comment on above: Performed By: #### C MP ####[facility] ([address] [place] [address] VIR Creatinine [Mass/Vol] 2.22 mg/dL High 0.40-1.00 [facility] Comment on above: Result Comment: METH OD TRACEABLE TO IDMS STANDARD Performed By: #### C MP ####[facility] ([address] [address] VIR GFR/1.73 sq M.predicted among non-blacks MDRD (S/P/Bld) [Vol rate/Area] 21 mL/min/{1.73_m2} Low >=60 [facility] Comment on above: Result Comment: eGFR not reported due to non-numeric value for Creatinine.Reported eGFR is based on theCKD-EPI 2020 equation that doesnot use a race coefficient. Performed By: #### C MP ####[facility] ([address] [place] [address] VIR Glucose [Mass/Vol] 124 mg/dL High 65-99 [facility] Comment on above: Performed By: #### C MP ####[facility] ([address] [place] [address] VIR Potassium [Moles/Vol] 4.3 mmol/L Normal 3.5-5.0 [facility] Comment on above: Performed By: #### C MP ####[facility] ([address] [address] VIR Protein [Mass/Vol] 6.6 g/dL Normal 6.0-8.0 [facility] Comment on above: Performed By: #### C MP ####[facility] ([address] [place] [address] VIR Sodium [Moles/Vol] 137 mmol/L Normal 134-146 [facility] Comment on above: Performed By: #### C MP ####[facility] ([address] [place] [address] VIR Urea nitrogen [Mass/Vol] 64 mg/dL High 5-27 [facility] Comment on above: Performed By: #### C MP ####[facility] ([address] [address] VIR MAGNESIUMon 10-26-2024 Magnesium [Mass/Vol] 3.0 mg/dL High 1.8-2.6 [facility] Comment on above: Performed By: #### M G ####[facility] ([address] [address] VIR URINALYSISon 10-26-2024 Bilirubin Ql (U) Negative Normal Negative [facility] Comment on above: Performed By: #### U A ####[facility] ([address] [address] VIR BLOOD/HGB Negative Normal Negative [facility] Comment on above: Performed By: #### U A ####[facility] ([address] [address] VIR Color (U) Yellow Normal Yellow, Colorless [facility] Comment on above: Performed By: #### U A ####[facility] ([address] [place] [address] VIR Glucose Ql (U) Negative Normal Negative, 250 mg/dL, >1000 mg/dL [facility] Comment on above: Performed By: #### U A ####[facility] ([address] [address] VIR Ketones Ql (U) Negative Normal Negative [facility] Comment on above: Performed By: #### U A ####[facility] ([address] [address] VIR Leukocyte esterase Test strip Ql (U) Negative Normal Negative [facility] Comment on above: Performed By: #### U A ####[facility] ([address] [address] VIR Nitrite Ql (U) Negative Normal Negative [facility] Comment on above: Performed By: #### U A ####[facility] ([address] [address] VIR PH,URINE 6.0 Normal 5.0-8.5 [facility] Comment on above: Performed By: #### U A ####[facility] ([address] [address] VIR Protein Ql (U) Negative Normal Negative [facility] Comment on above: Performed By: #### U A ####[facility] ([address] [address] VIR Specific gravity (U) [Rel density] 1.020 Normal 1.003-1.035 [facility] Comment on above: Performed By: #### U A ####[facility] ([address] [address] VIR TURBIDITY Clear Normal Clear [facility] Comment on above: Performed By: #### U A ####[facility] ([address] [address] VIR UROBILINOGEN 0.2 eu/dL Normal 0.2 eu/dL, 1.0 eu/dL [facility] Comment on above: Performed By: #### U A ####[facility] ([address] [address] VIR BEDSIDE GLUCOSEon 10-25-2024 Glucose [Mass/Vol] 292 mg/dL High 65-99 [facility] Comment on above: Performed By: #### B EDG ####[facility] [place] [address] VIR Glucose [Mass/Vol] 229 mg/dL High 65-99 [facility] Comment on above: Performed By: #### B EDG ####[facility] ([address] [place] [address] VIR Glucose [Mass/Vol] 232 mg/dL High 65-99 [facility] Comment on above: Performed By: #### B EDG ####[facility] ([address] [address] VIR C-REACTIVE PROTEINon 025 C REACTIVE PROTEIN 2.7 mg/dL High <=0.7 [facility] Comment on above: Performed By: #### C RP ####[facility] ([address] [address] VIR CBC WITH AUTO DIFFERENTIALon 10-25-2024 BASOPHILS ABSOLUTE COUNT (10*3/UL) BY AUTOMATED COUNT 0.2 10*3/uL Normal 0.0-0.2 [facility] Comment on above: Performed By: #### C BCA ####[facility] ([address] [address] VIR BASOPHILS RELATIVE PERCENT BY AUTOMATED COUNT 1.3 % Normal [facility] Comment on above: Performed By: #### C BCA ####[facility] ([address] [address] VIR CELLAVISION DIFFERENTIAL TYPE AUTOMATED DIFFERENTIAL Normal [facility] Comment on above: Performed By: #### C BCA ####[facility] ([address] [address] VIR Eosinophils (Bld) [#/Vol] 0.2 10*3/uL Normal 0.0-0.4 [facility] Comment on above: Performed By: #### C BCA ####[facility])[address] [place] [address] VIR EOSINOPHILS RELATIVE PERCENT BY AUTOMATED COUNT 2.0 % Normal [facility] Comment on above: Performed By: #### C BCA ####[facility] ([address] [place] [address] VIR Erythrocyte distribution width (RBC) [Ratio] 13.6 % Normal 11.5-15 [facility] Comment on above: Performed By: #### C BCA ####[facility] ([address] [address] VIR Hematocrit (Bld) [Volume fraction] 32.0 % Low 35-47 [facility] Comment on above: Performed By: #### C BCA ####[facility] ([address] [address] VIR Hemoglobin (Bld) [Mass/Vol] 10.7 g/dL Low 11.7-15.5 [facility] Comment on above: Performed By: #### C BCA ####[facility] ([address] [address] VIR LYMPHOCYTES ABSOLUTE COUNT (10*3/UL) BY AUTOMATED COUNT 2.3 10*3/uL Normal 1.0-3.5 [facility] Comment on above: Performed By: #### C BCA ####[facility] ([address] [place] [address] VIR LYMPHOCYTES RELATIVE PERCENT BY AUTOMATED COUNT 19.8 % Normal [facility] Comment on above: Performed By: #### C BCA ####[facility] ([address] [address] VIR MCH (RBC) [Entitic mass] 30.1 pg Normal 27-34 [facility] Comment on above: Performed By: #### C BCA ####[facility] ([address] [address] VIR MCHC (RBC) [Mass/Vol] 33.4 g/dL Normal 32-36 [facility] Comment on above: Performed By: #### C BCA ####[facility] ([address] [place] [address] VIR MCV (RBC) [Entitic vol] 90 fL Normal 80-100 [facility] Comment on above: Performed By: #### C BCA ####[facility] ([address] [place] [address] VIR MONOCYTES ABSOLUTE COUNT (10*3/UL) BY AUTOMATED COUNT 1.5 10*3/uL High 0.0-0.9 [facility] Comment on above: Performed By: #### C BCA ####[facility] ([address] [place] [address] VIR MONOCYTES RELATIVE PERCENT BY AUTOMATED COUNT 12.7 % Normal [facility] Comment on above: Performed By: #### C BCA ####[facility] ([address] [place] [address] VIR NEUTROPHILS ABSOLUTE COUNT BY AUTOMATED COUNT 7.6 10*3/uL High 1.5-6.6 [facility] Comment on above: Performed By: #### C BCA ####[facility] ([address] [place] [address] VIR NEUTROPHILS RELATIVE PERCENT BY AUTOMATED COUNT 64.2 % Normal [facility] Comment on above: Performed By: #### C BCA ####[facility] ([address] [place] [address] VIR Platelet mean volume (Bld) [Entitic vol] 8.1 fL Normal 7-12 [facility] Comment on above: Performed By: #### C BCA ####[facility] ([address] [place] [address] VIR Platelets (Bld) [#/Vol] 371 10*3/uL Normal 150-450 [facility] Comment on above: Performed By: #### C BCA ####[facility] ([facility])[address] [place] [address] [place] [address] VIR RBC COUNT 3.56 X10E12/L Low 3.8-5.2 [facility] Comment on above: Performed By: #### C BCA ####[facility] ([address] [address] VIR WBC (Bld) [#/Vol] 11.9 10*3/uL High 4-11 [facility] Comment on above: Performed By: #### C BCA ####[facility] ([address] [place] [address] VIR COMPREHENSIVE METABOLIC PANE José Luis 10-25-2024 Albumin [Mass/Vol] 3.4 g/dL Normal 3.2-5.3 [facility] Comment on above: Performed By: #### C MP ####[facility] ([address] [place] [address] VIR ALP [Catalytic activity/Vol] 73 U/L Normal 39-130 [facility] Comment on above: Performed By: #### C MP ####[facility] ([address] [place] [address] VIR ALT [Catalytic activity/Vol] 24 U/L Normal <=31 [facility] Comment on above: Performed By: #### C MP ####[facility] ([address] [place] [address] VIR Anion gap [Moles/Vol] 6 mmol/L Normal 5-15 [facility] Comment on above: Performed By: #### C MP ####[facility] ([address] [place] [address] VIR AST [Catalytic activity/Vol] 27 U/L Normal <=41 [facility] Comment on above: Performed By: #### C MP ####[facility] ([address] [place] [address] VIR Bilirubin [Mass/Vol] 2.5 mg/dL High 0.3-1.2 [facility] Comment on above: Performed By: #### C MP ####[facility] ([address] [place] [address] VIR Calcium [Mass/Vol] 8.4 mg/dL Low 8.5-10.5 [facility] Comment on above: Performed By: #### C MP ####[facility] ([address] [address] VIR Chloride [Moles/Vol] 108 mmol/L Normal 98-109 [facility] Comment on above: Performed By: #### C MP ####[facility] ([address] [place] [address] VIR CO2 [Moles/Vol] 23 mmol/L Normal 22-32 [facility] Comment on above: Performed By: #### C MP ####[facility] ([address] [place] [address] VIR Creatinine [Mass/Vol] 0.84 mg/dL Normal 0.40-1.00 [facility] Comment on above: Result Comment: METH OD TRACEABLE TO IDMS STANDARD Performed By: #### C MP ####[facility] ([address] [address] VIR GFR/1.73 sq M.predicted among non-blacks MDRD (S/P/Bld) [Vol rate/Area] 69 mL/min/{1.73_m2} Normal >=60 [facility] Comment on above: Result Comment: eGFR not reported due to non-numeric value for Creatinine.Reported eGFR is based on theCKD-EPI 2020 equation that doesnot use a race coefficient. Performed By: #### C MP ####[facility] ([address] [place] [address] VIR Glucose [Mass/Vol] 109 mg/dL High 65-99 [facility] Comment on above: Performed By: #### C MP ####[facility] ([address] [place] [address] VIR Potassium [Moles/Vol] 3.6 mmol/L Normal 3.5-5.0 [facility] Comment on above: Performed By: #### C MP ####[facility] ([address] [place] [address] VIR Protein [Mass/Vol] 6.1 g/dL Normal 6.0-8.0 [facility] Comment on above: Performed By: #### C MP ####[facility] ([address] [place] [address] VIR Sodium [Moles/Vol] 137 mmol/L Normal 134-146 [facility] Comment on above: Performed By: #### C MP ####[facility] ([address] [place] [address] VIR Urea nitrogen [Mass/Vol] 27 mg/dL Normal 5-27 [facility] Comment on above: Performed By: #### C MP ####[facility] ([address] [place] [address] VIR MAGNESIUMon 10-25-2024 Magnesium [Mass/Vol] 3.5 mg/dL High 1.8-2.6 [facility] Comment on above: Performed By: #### M G ####[facility] ([address] [place] [address] VIR Magnesium [Mass/Vol] 1.6 mg/dL Low 1.8-2.6 [facility] Comment on above: Performed By: #### M G ####[facility] ([facility])[address] [place] [address] [address] VIR BEDSIDE GLUCOSEon 10-24-2024 Glucose [Mass/Vol] 233 mg/dL High 65-99 [facility] Comment on above: Performed By: #### B EDG ####[facility] ([address] [place] [address] VIR Glucose [Mass/Vol] 226 mg/dL High 65-99 [facility] Comment on above: Performed By: #### B EDG ####[facility] ([address] [place] [address] VIR Glucose [Mass/Vol] 305 mg/dL High 65-99 [facility] Comment on above: Performed By: #### B EDG ####[facility] ([address] [place] [address] VIR C-REACTIVE PROTEINon 025 C REACTIVE PROTEIN 6.8 mg/dL High <=0.7 [facility] Comment on above: Performed By: #### C RP ####[facility] ([address] [place] [address] VIR CBC WITH AUTO DIFFERENTIALon 10-24-2024 CELLAVISION BASOPHILS ABSOLUTE COUNT (10*3/UL) BY MANUAL COUNT 0.1 10*3/uL Normal 0.0-0.2 [facility] Comment on above: Result Comment: This is an appended report. These results have been appended to a previously preliminary verified report. Performed By: #### C BCA ####[facility] ([address] [place] [address] VIR CELLAVISION BASOPHILS RELATIVE PERCENT BY MANUAL COUNT 1 % Normal [facility] Comment on above: Result Comment: This is an appended report. These results have been appended to a previously preliminary verified report. Performed By: #### C BCA ####[facility] ([facility] [place] [address] VIR CELLAVISION DIFFERENTIAL TYPE CELLAVISION DIFFERENTIAL Normal [facility] Comment on above: Result Comment: This is an appended report. These results have been appended to a previously preliminary verified report. Performed By: #### C BCA ####[facility])[address] [place] [address] VIR CELLAVISION EOSINOPHILS ABSOLUTE COUNT (10*3/UL) BY MANUAL COUNT 0.4 10*3/uL Normal 0.0-0.4 [facility] Comment on above: Result Comment: This is an appended report. These results have been appended to a previously preliminary verified report. Performed By: #### C BCA ####[facility] ([address] [address] VIR CELLAVISION EOSINOPHILS PERCENT BY MANUAL COUNT 3 % Normal [facility] Comment on above: Result Comment: This is an appended report. These results have been appended to a previously preliminary verified report. Performed By: #### C BCA ####[facility] ([address] [address] VIR CELLAVISION LYMPHOCYTES ABSOLUTE COUNT (10*3/UL) BY MANUAL COUNT 0.9 10*3/uL Low 1.0-3.5 [facility] Comment on above: Result Comment: This is an appended report. These results have been appended to a previously preliminary verified report. Performed By: #### C BCA ####[facility])[address] [place] [address] VIR CELLAVISION LYMPHOCYTES RELATIVE PERCENT BY MANUAL COUNT 7 % Normal [facility] Comment on above: Result Comment: This is an appended report. These results have been appended to a previously preliminary verified report. Performed By: #### C BCA ####[facility] ([address] [address] VIR CELLAVISION MONOCYTES ABSOLUTE COUNT (10*3/UL) IN BLOOD BY MANUAL COUNT 1.8 10*3/uL High 0.0-0.9 [facility] Comment on above: Result Comment: This is an appended report. These results have been appended to a previously preliminary verified report. Performed By: #### C BCA ####[facility] ([address] [address] VIR CELLAVISION MONOCYTES RELATIVE PERCENT BY MANUAL COUNT 13 % Normal [facility] Comment on above: Result Comment: This is an appended report. These results have been appended to a previously preliminary verified report. Performed By: #### C BCA ####[facility] [address] [address] VIR CELLAVISION NEUTROPHILS ABSOLUTE COUNT BY MANUAL COUNT 10.1 10*3/uL High 1.5-6.6 [facility] Comment on above: Result Comment: This is an appended report. These results have been appended to a previously preliminary verified report. Performed By: #### C BCA ####[address] [address] VIR CELLAVISION NEUTROPHILS RELATIVE PERCENT BY MANUAL COUNT 76 % Normal [facility] Comment on above: Result Comment: This is an appended report. These results have been appended to a previously preliminary verified report. Performed By: #### C BCA ####[facility] [address] [address] VIR Erythrocyte distribution width (RBC) [Ratio] 13.6 % Normal 11.5-15 [facility] Comment on above: Performed By: #### C BCA ####[address] [address] VIR Hematocrit (Bld) [Volume fraction] 34.7 % Low 35-47 [facility] Comment on above: Performed By: #### C BCA ####[facility] ([address] [address] VIR Hemoglobin (Bld) [Mass/Vol] 11.4 g/dL Low 11.7-15.5 [facility] Comment on above: Performed By: #### C BCA ####[facility] ([address] [place] [address] VIR MCH (RBC) [Entitic mass] 29.9 pg Normal 27-34 [facility] Comment on above: Performed By: #### C BCA ####[facility] ([address] [address] VIR MCHC (RBC) [Mass/Vol] 32.8 g/dL Normal 32-36 [facility] Comment on above: Performed By: #### C BCA ####[facility] ([address] [address] VIR MCV (RBC) [Entitic vol] 91 fL Normal 80-100 [facility] Comment on above: Performed By: #### C BCA ####[facility] ([address] [address] VIR Platelet mean volume (Bld) [Entitic vol] 7.8 fL Normal 7-12 [facility] Comment on above: Performed By: #### C BCA ####[facility] ([address] [address] VIR Platelets (Bld) [#/Vol] 379 10*3/uL Normal 150-450 [facility] Comment on above: Performed By: #### C BCA ####[facility] ([address] [address] VIR RBC COUNT 3.81 X10E12/L Normal 3.8-5.2 [facility] Comment on above: Performed By: #### C BCA ####[facility] ([address] [address] VIR WBC (Bld) [#/Vol] 13.2 10*3/uL High 4-11 [facility] Comment on above: Performed By: #### C BCA ####[facility] ([place] [address] [place] [address] VIR COMPREHENSIVE METABOLIC PANE José Luis 10-24-2024 Albumin [Mass/Vol] 3.2 g/dL Normal 3.2-5.3 [facility] Comment on above: Performed By: #### C MP ####[facility] ([place] [address] [place] [address] VIR ALP [Catalytic activity/Vol] 94 U/L Normal 39-130 [facility] Comment on above: Performed By: #### C MP ####[facility] ([place] [address] [place] [address] VIR ALT [Catalytic activity/Vol] 8 U/L Normal <=31 [facility] Comment on above: Performed By: #### C MP ####[facility] ([place] [address] [place] [address] VIR Anion gap [Moles/Vol] 12 mmol/L Normal 5-15 [facility] Comment on above: Performed By: #### C MP ####[facility] ([place] [address] [place] [address] VIR AST [Catalytic activity/Vol] 11 U/L Normal <=41 [facility] Comment on above: Performed By: #### C MP ####[facility] ([place] [address] [address] VIR Bilirubin [Mass/Vol] 0.7 mg/dL Normal 0.3-1.2 [facility] Comment on above: Performed By: #### C MP ####[facility] ([place] [address] [place] [address] VIR Calcium [Mass/Vol] 9.3 mg/dL Normal 8.5-10.5 [facility] Comment on above: Performed By: #### C MP ####[facility] ([address] [place] [address] VIR Chloride [Moles/Vol] 106 mmol/L Normal 98-109 [facility] Comment on above: Performed By: #### C MP ####[facility] ([address] [place] [address] VIR CO2 [Moles/Vol] 20 mmol/L Low 22-32 [facility] Comment on above: Performed By: #### C MP ####[facility] ([address] [place] [address] VIR Creatinine [Mass/Vol] 1.65 mg/dL High 0.40-1.00 [facility] Comment on above: Result Comment: METH OD TRACEABLE TO IDMS STANDARD Performed By: #### C MP ####[facility] ([address] [place] [address] VIR GFR/1.73 sq M.predicted among non-blacks MDRD (S/P/Bld) [Vol rate/Area] 31 mL/min/{1.73_m2} Low >=60 [facility] Comment on above: Result Comment: eGFR not reported due to non-numeric value for Creatinine.Reported eGFR is based on theCKD-EPI 2020 equation that doesnot use a race coefficient. Performed By: #### C MP ####[facility] ([address] [place] [address] VIR Glucose [Mass/Vol] 200 mg/dL High 65-99 [facility] Comment on above: Performed By: #### C MP ####[facility] ([address] [place] [address] VIR Potassium [Moles/Vol] 5.0 mmol/L Normal 3.5-5.0 [facility] Comment on above: Performed By: #### C MP ####[facility] ([address] [place] [address] VIR Protein [Mass/Vol] 6.9 g/dL Normal 6.0-8.0 [facility] Comment on above: Performed By: #### C MP ####[facility] ([address] [place] [address] VIR Sodium [Moles/Vol] 138 mmol/L Normal 134-146 [facility] Comment on above: Performed By: #### C MP ####[address] [address] VIR Urea nitrogen [Mass/Vol] 63 mg/dL High 5-27 [facility] Comment on above: Performed By: #### C MP ####[facility] ([address] [address] VIR MAGNESIUMon 10-24-2024 Magnesium [Mass/Vol] 2.0 mg/dL Normal 1.8-2.6 [facility] Comment on above: Performed By: #### M G ####[address] [address] VIR VANCOMYCIN, RANDOMon 025 VANCOMYCIN 22.3 ug/mL Normal 5.0-40.0 [facility] Comment on above: Order Comment: Peak 30-40 ug/mLTrough 5-20 ug/ml Performed By: #### V ANC ####[facility] ([address] [address] VIR B-TYPE NATRIURETIC PEPTIDEon 10-23-2024 Natriuretic peptide B (Bld) [Mass/Vol] 41 pg/mL Normal <=100 [facility] Comment on above: Performed By: #### B KETTLE COOK ####[facility] ([address] [address] VIR BEDSIDE GLUCOSEon 10-23-2024 Glucose [Mass/Vol] 294 mg/dL High 65-99 [facility] Comment on above: Performed By: #### B EDG ####[facility] ([address] [address] VIR CBC WITH AUTO DIFFERENTIALon 10-23-2024 BASOPHILS ABSOLUTE COUNT (10*3/UL) BY AUTOMATED COUNT 0.1 10*3/uL Normal 0.0-0.2 [facility] Comment on above: Performed By: #### C BCA ####[facility] ([address] [address] VIR BASOPHILS RELATIVE PERCENT BY AUTOMATED COUNT 0.8 % Normal [facility] Comment on above: Performed By: #### C BCA ####[address] [address] VIR CELLAVISION DIFFERENTIAL TYPE AUTOMATED DIFFERENTIAL Normal [facility] Comment on above: Performed By: #### C BCA ####[facility] ([address] [address] VIR Eosinophils (Bld) [#/Vol] 0.3 10*3/uL Normal 0.0-0.4 [facility] Comment on above: Performed By: #### C BCA ####[address] [address] VIR EOSINOPHILS RELATIVE PERCENT BY AUTOMATED COUNT 2.5 % Normal [facility] Comment on above: Performed By: #### C BCA ####[address] [address] VIR Erythrocyte distribution width (RBC) [Ratio] 13.7 % Normal 11.5-15 [facility] Comment on above: Performed By: #### C BCA ####[facility] ([address] [place] [address] VIR Hematocrit (Bld) [Volume fraction] 33.7 % Low 35-47 [facility] Comment on above: Performed By: #### C BCA ####[facility] ([address] [address] VIR Hemoglobin (Bld) [Mass/Vol] 11.2 g/dL Low 11.7-15.5 [facility] Comment on above: Performed By: #### C BCA ####[facility] ([address] [address] VIR LYMPHOCYTES ABSOLUTE COUNT (10*3/UL) BY AUTOMATED COUNT 1.3 10*3/uL Normal 1.0-3.5 [facility] Comment on above: Performed By: #### C BCA ####[facility] ([address] [address] VIR LYMPHOCYTES RELATIVE PERCENT BY AUTOMATED COUNT 13.1 % Normal [facility] Comment on above: Performed By: #### C BCA ####[facility] ([address] [address] VIR MCH (RBC) [Entitic mass] 30.1 pg Normal 27-34 [facility] Comment on above: Performed By: #### C BCA ####[facility] ([address] [address] VIR MCHC (RBC) [Mass/Vol] 33.2 g/dL Normal 32-36 [facility] Comment on above: Performed By: #### C BCA ####[facility] ([address] [address] VIR MCV (RBC) [Entitic vol] 91 fL Normal 80-100 [facility] Comment on above: Performed By: #### C BCA ####[facility] ([place])[address] [place] [address] VIR MONOCYTES ABSOLUTE COUNT (10*3/UL) BY AUTOMATED COUNT 1.1 10*3/uL High 0.0-0.9 [facility] Comment on above: Performed By: #### C BCA ####[facility] ([address] [place] [address] VIR MONOCYTES RELATIVE PERCENT BY AUTOMATED COUNT 10.6 % Normal [facility] Comment on above: Performed By: #### C BCA ####[facility] ([address] [address] VIR NEUTROPHILS ABSOLUTE COUNT BY AUTOMATED COUNT 7.4 10*3/uL High 1.5-6.6 [facility] Comment on above: Performed By: #### C BCA ####[facility] ([address] [place] [address] VIR NEUTROPHILS RELATIVE PERCENT BY AUTOMATED COUNT 73.0 % Normal [facility] Comment on above: Performed By: #### C BCA ####[facility] ([address] [place] [address] VIR Platelet mean volume (Bld) [Entitic vol] 8.3 fL Normal 7-12 [facility] Comment on above: Performed By: #### C BCA ####[facility] ([address] [place] [address] VIR Platelets (Bld) [#/Vol] 405 10*3/uL Normal 150-450 [facility] Comment on above: Performed By: #### C BCA ####[facility] ([address] [place] [address] VIR RBC COUNT 3.73 X10E12/L Low 3.8-5.2 [facility] Comment on above: Performed By: #### C BCA ####[facility] ([address] [place] [address] VIR WBC (Bld) [#/Vol] 10.1 10*3/uL Normal 4-11 [facility] Comment on above: Performed By: #### C BCA ####[facility])[address] [place] [address] VIR COMPREHENSIVE METABOLIC PANE José Luis 10-23-2024 Albumin [Mass/Vol] 3.5 g/dL Normal 3.2-5.3 [facility] Comment on above: Performed By: #### C MP ####[facility] ([place] [address] [place] [address] VIR ALP [Catalytic activity/Vol] 104 U/L Normal 39-130 [facility] Comment on above: Performed By: #### C MP ####[facility] ([place] [address] [place] [address] VIR ALT [Catalytic activity/Vol] 9 U/L Normal <=31 [facility] Comment on above: Performed By: #### C MP ####[facility] ([place] [address] [place] [address] VIR Anion gap [Moles/Vol] 7 mmol/L Normal 5-15 [facility] Comment on above: Performed By: #### C MP ####[facility] ([place] [address] [place] [address] VIR AST [Catalytic activity/Vol] 10 U/L Normal <=41 [facility] Comment on above: Performed By: #### C MP ####[facility] ([place] [address] [place] [address] VIR Bilirubin [Mass/Vol] 0.7 mg/dL Normal 0.3-1.2 [facility] Comment on above: Performed By: #### C MP ####[facility] ([place] [address] [place] [address] VIR Calcium [Mass/Vol] 9.2 mg/dL Normal 8.5-10.5 [facility] Comment on above: Performed By: #### C MP ####[facility] ([address] [place] [address] VIR Chloride [Moles/Vol] 106 mmol/L Normal 98-109 [facility] Comment on above: Performed By: #### C MP ####[facility] ([address] [place] [address] VIR CO2 [Moles/Vol] 20 mmol/L Low 22-32 [facility] Comment on above: Performed By: #### C MP ####[facility] ([address] [place] [address] VIR Creatinine [Mass/Vol] 1.94 mg/dL High 0.40-1.00 [facility] Comment on above: Result Comment: METH OD TRACEABLE TO IDMS STANDARD Performed By: #### C MP ####[facility] ([address] [place] [address] VIR GFR/1.73 sq M.predicted among non-blacks MDRD (S/P/Bld) [Vol rate/Area] 25 mL/min/{1.73_m2} Low >=60 [facility] Comment on above: Result Comment: eGFR not reported due to non-numeric value for Creatinine.Reported eGFR is based on theCKD-EPI 2020 equation that doesnot use a race coefficient. Performed By: #### C MP ####[facility] ([address] [place] [address] VIR Glucose [Mass/Vol] 328 mg/dL High 65-99 [facility] Comment on above: Performed By: #### C MP ####[facility] ([address] [place] [address] VIR Potassium [Moles/Vol] 5.6 mmol/L High 3.5-5.0 [facility] Comment on above: Performed By: #### C MP ####[facility] [place] [address] VIR Protein [Mass/Vol] 7.2 g/dL Normal 6.0-8.0 [facility] Comment on above: Performed By: #### C MP ####[facility] ([address] [place] [address] VIR Sodium [Moles/Vol] 133 mmol/L Low 134-146 [facility] Comment on above: Performed By: #### C MP ####[facility] ([address] [place] [address] VIR Urea nitrogen [Mass/Vol] 74 mg/dL High 5-27 [facility] Comment on above: Performed By: #### C MP ####[facility] ([address] [place] [address] VIR LACTATE W/ REFLEXon 10-24-19 25 LACTATE W/REFLEX 1.0 mmol/L Normal 0.4-2.0 [facility] Comment on above: Order Comment: Resul t did not trigger repeat Lactate,re-order if needed. Performed By: #### L ACTS ####[facility])[address] [place] [address] [place] [address] VIR 29on 10-19-2024 29 Addended by: SURJIT CORDOVA on: 10/19/2024 02:56 PM Modules accepted: Orders Normal [facility] Office Visiton 10-19-2024 Follow-up visit [id number] Rupa Gutierrez 1940 F Date Provider Department Center 10/19/2024 499-SURJIT CORDOVA MP ORTHO MPORTHO Family History Family history unknown: Yes Level of Service:[address] [place] OFFICE/OUTPATIENT NEW LOW MDM 30 MINUTES Reason for Visit and Comments: Pain [136] Normal [facility] SUPERFICIAL WOUND CULTUREon 10-08-2024 Bacteria identified Aer cx Nom (Wound) GRAM STAIN 1 to 9 WHITE BLOOD CELLS/LPF 0 SQUAMOUS EPITHELIAL CELLS/LPF MANY GRAM POSITIVE COCCOBACILLI CULTURE RESULTS MANY MIXED GRAM POSITIVE AND GRAM NEGATIVE ORGANISMS NO BETA HEMOLYTIC STREPTOCOCCI ISOLATED NO PSEUDOMONAS AERUGINOSA ISOLATED NO STAPHYLOCOCCUS AUREUS ISOLATED Normal [facility] Comment on above: Performed By: #### 6 32-0 #### [facility] ([id number]) [address], [address] [place] [address] BASIC METABOLIC PANLon 09-07 Anion gap [Moles/Vol] 8 mmol/L Normal 5-15 [facility] Comment on above: Performed By: #### 7 18-7, BMP ####[facility] ([id number])[address], [address] [address] Calcium [Mass/Vol] 9.7 mg/dL Normal 8.5-10.5 [facility] Comment on above: Performed By: #### 7 18-7, BMP ####[facility] ([id number])[address], [address], [place] [address] Chloride [Moles/Vol] 103 mmol/L Normal 98-109 [facility] Comment on above: Performed By: #### 7 18-7, BMP ####[facility] ([id number])[address] [address], [place] [address] CO2 [Moles/Vol] 29 mmol/L Normal 22-32 [facility] Comment on above: Performed By: #### 7 18-7, BMP ####[facility] ([id number])[address] [address] [address] Creatinine [Mass/Vol] 1.83 mg/dL High 0.40-1.00 [facility] Comment on above: Result Comment: METH OD TRACEABLE TO IDMS STANDARD Performed By: #### 7 18-7, BMP ####[facility] ([id number])[address] [address] [address] GFR/1.73 sq M.predicted among non-blacks MDRD (S/P/Bld) [Vol rate/Area] 27 mL/min/{1.73_m2} Low >59 [facility] Comment on above: Result Comment: Repo rted eGFR is based on theCKD-EPI 2020 equation that doesnot use a race coefficient. Performed By: #### 7 18-7, BMP ####[facility] ([id number])[address], [place] [address] Glucose [Mass/Vol] 166 mg/dL High 65-99 [facility] Comment on above: Performed By: #### 7 18-7, BMP ####[facility] ([id number])[address], [address], [place] [address] Potassium [Moles/Vol] 4.8 mmol/L Normal 3.5-5.0 [facility] Comment on above: Performed By: #### 7 18-7, BMP ####[facility] ([id number])[address], [address], [place] [address] Sodium [Moles/Vol] 140 mmol/L Normal 134-146 [facility] Comment on above: Performed By: #### 7 18-7, BMP ####[facility] ([id number])[address], [address], [place] [address] Urea nitrogen [Mass/Vol] 43 mg/dL High 5-27 [facility] Comment on above: Performed By: #### 7 18-7, BMP ####[facility] ([id number])[address], [address], [place] [address] HEMOGLOBINon 09-07-2024 Hemoglobin (Bld) [Mass/Vol] 12.6 g/dL Normal 11.7-15.5 [facility] Comment on above: Performed By: #### 7 18-7, BMP ####[facility] ([id number])[address], [address], [place] [address] XR CHEST 2 VWSon 09-07-2024 XR CHEST 2 VWS Normal [facility] CT BRAIN WO CONTon CT BRAIN WO CONT Normal [facility] CT CERVICAL SPINE WO CONTon 09-02-2024 CT CERVICAL SPINE WO CONT Normal [facility] Glucose Glucometer (BldC) [M ass/Vol]on 08-30-2024 Glucose [Mass/Vol] 393 mg/dL High 65-99 [facility] XR ELBOW RT MIN 3 VWSon 08-15 XR ELBOW RT MIN 3 VWS Normal [facility] XR FOREARM RT 2 VWSon 2024 XR FOREARM RT 2 VWS Normal [facility] XR WRIST RT MIN 3 VWSon 08-15 XR WRIST RT MIN 3 VWS Normal [facility] XR WRIST RT MIN 3 VWS Normal [facility] BASIC METABOLIC PANLon 02-06 Anion gap [Moles/Vol] 12 mmol/L Normal 5-15 [facility] Comment on above: Performed By: #### 2 731-8, 63323-6, BMP, CBC, UPCR, 2777-1 ####[facility] ([id number])[address], [address] [place] [address] Calcium [Mass/Vol] 9.0 mg/dL Normal 8.5-10.5 [facility] Comment on above: Performed By: #### 2 731-8, 45655-2, BMP, CBC, UPCR, 2777-1 ####[facility] ([id number])[address], [address] [place] [address] Chloride [Moles/Vol] 104 mmol/L Normal 98-109 [facility] Comment on above: Performed By: #### 2 731-8, 65873-2, BMP, CBC, UPCR, 2777-1 ####[facility] ([id number])[address], [address] [place] [address] CO2 [Moles/Vol] 26 mmol/L Normal 22-32 [facility] Comment on above: Performed By: #### 2 731-8, 30806-8, BMP, CBC, UPCR, 277-1 ####[facility] ([id number])[address], [address], [place] [address] Creatinine [Mass/Vol] 1.57 mg/dL High 0.40-1.00 [facility] Comment on above: Result Comment: METH OD TRACEABLE TO IDMS STANDARD Performed By: #### 2 731-8, 52285-2, BMP, CBC, UPCR, 277-1 ####[facility] ([id number])[address] [address] GFR/1.73 sq M.predicted among non-blacks MDRD (S/P/Bld) [Vol rate/Area] 33 mL/min/{1.73_m2} Low >59 [facility] Comment on above: Result Comment: Repo rted eGFR is based on theCKD-EPI 2020 equation that doesnot use a race coefficient. Performed By: #### 2 731-8, 20270-9, BMP, CBC, UPCR, 277- ####[facility] ([id number])[address] [address], [place] [address] Glucose [Mass/Vol] 221 mg/dL High 65-99 [facility] Comment on above: Performed By: #### 2 731-8, 49418-1, BMP, CBC, UPCR, 277-1 ####[facility] ([id number])[address] [address], [place] [address] Potassium [Moles/Vol] 4.2 mmol/L Normal 3.5-5.0 [facility] Comment on above: Performed By: #### 2 731-8, 15149-1, BMP, CBC, UPCR, 277-1 ####[facility] ([id number])[address] [address], [place] [address] Sodium [Moles/Vol] 142 mmol/L Normal 134-146 [facility] Comment on above: Performed By: #### 2 731-8, 90033-0, BMP, CBC, UPCR, 277-1 ####[facility] ([id number])[address] [address] Urea nitrogen [Mass/Vol] 37 mg/dL High 5-27 [facility] Comment on above: Performed By: #### 2 731-8, 70206-1, BMP, CBC, UPCR, 277- ####[facility] ([id number])[address] [address] COMPLETE BLOOD COUNTon 02-06 Erythrocyte distribution width (RBC) [Ratio] 13.5 % Normal 11.5-15.0 [facility] Comment on above: Performed By: #### 2 731-8, , BMP, CBC, UPCR, 277- ####[facility] ([id number])[address] [address] Hematocrit (Bld) [Volume fraction] 38.3 % Normal 35-47 [facility] Comment on above: Performed By: #### 2 731-8, 36743-5, BMP, CBC, UPCR, 277- ####[facility] ([id number])[address] [address] Hemoglobin (Bld) [Mass/Vol] 12.7 g/dL Normal 11.7-15.5 [facility] Comment on above: Performed By: #### 2 731-8, 32950-8, BMP, CBC, UPCR, 2777-1 ####[facility] ([id number])[address] [address] MCH (RBC) [Entitic mass] 30.3 pg Normal 27-34 [facility] Comment on above: Performed By: #### 2 731-8, 88111-6, BMP, CBC, UPCR, 277- ####[facility] ([id number])[address] [address] [place] [address] MCHC (RBC) [Mass/Vol] 33.2 g/dL Normal 32-36 [facility] Comment on above: Performed By: #### 2 731-8, 93753-5, BMP, CBC, UPCR, 277- ####[facility] ([id number])[address] [address] MCV (RBC) [Entitic vol] 91 fL Normal 80-100 [facility] Comment on above: Performed By: #### 2 731-8, 92629-8, BMP, CBC, UPCR, 2776- ####[facility] ([id number])[address] [address] [place] [address] Platelet mean volume (Bld) [Entitic vol] 8.3 fL Normal 7-12 [facility] Comment on above: Performed By: #### 2 731-8, , BMP, CBC, UPCR, 277- ####[facility] ([id number])[address] [address] Platelets (Bld) [#/Vol] 297 10*3/uL Normal 150-450 [facility] Comment on above: Performed By: #### 2 731-8, 95509-7, BMP, CBC, UPCR, 277- ####[facility] ([id number])[address] [address] RBC COUNT 4.19 X10E12/L Normal 3.80-5.20 [facility] Comment on above: Performed By: #### 2 731-8, 69973-1, BMP, CBC, UPCR, 277-1 ####[facility] ([id number])[address], [address] [place] [address] WBC (Bld) [#/Vol] 8.7 10*3/uL Normal 4.0-11.0 [facility] Comment on above: Performed By: #### 2 731-8, 89224-4, BMP, CBC, UPCR, 277-1 ####[facility] ([id number])[address], [address] [place] [address] MAGNESIUMon 02-07-2024 Magnesium [Mass/Vol] 1.7 mg/dL Low 1.8-2.6 [facility] Comment on above: Performed By: #### 2 731-8, 06769-9, BMP, CBC, UPCR, 2776-1 ####[facility] ([id number])[address], [address] [place] [address] PHOSPHORUSon 02-07-2024 Phosphate [Mass/Vol] 3.7 mg/dL Normal 2.4-4.9 [facility] Comment on above: Performed By: #### 2 731-8, 13522-8, BMP, CBC, UPCR, 277-1 ####[facility] ([id number])[address] [address] [place] [address] PROTEIN CREAT RATIOon 2023 RANDOM URINE PROTEIN 500 mg/L High <120 [facility] Comment on above: Performed By: #### 2 731-8, 18436-9, BMP, CBC, UPCR, 2777-1 ####[facility] ([id number])[address] [address] [place] [address] U/PRO/TAX ASSOCIATE RATIO CALC 0.80 High <0.2 [facility] Comment on above: Result Comment: Neph rotic Syndrome is associated with ratios >3.5 Performed By: #### 2 731-8, 49129-8, BMP, CBC, UPCR, 2777-1 ####[facility] ([id number])[address], [place] [address] URINE CREATININE,RDM 62.89 mg/dL Normal [facility] Comment on above: Performed By: #### 2 731-8, 53235-9, BMP, CBC, UPCR, 2777-1 ####[facility] ([id number])[address], [place] [address] Parathyrin.intact [Mass/Vol] on 02-07-2024 PTH INTACT 161 pg/mL High [facility] Comment on above: Performed By: #### 2 731-8, 86829-9, BMP, CBC, UPCR, 2777-1 ####[facility] ([id number])[address] [facility] [address], [place] [address] URINALYSISon 02-07-2024 Bilirubin Ql (U) Negative Normal NEG [facility] Comment on above: Performed By: #### U A ####[facility] ([id number])[address] [address], [place] [address] BLOOD/HGB Small Abnormal NEG [facility] Comment on above: Performed By: #### U A ####[facility] ([id number])0 [address] [address], [place] [address] Color (U) YELLOW Normal YELLOW [facility] Comment on above: Performed By: #### U A ####[facility] ([id number])2130 [facility] [address], [place] [address] Glucose Ql (U) 300 mg/dL Abnormal NEG [facility] Comment on above: Performed By: #### U A ####[facility] ([id number])213 [facility] [address], [place] [address] Ketones Ql (U) Negative Normal NEG [facility] Comment on above: Performed By: #### U A ####[facility] ([id number])0 [address], [address] [place] [address] Leukocyte esterase Test strip Ql (U) Negative Normal NEG [facility] Comment on above: Performed By: #### U A ####[facility] ([id number])0 [address], [address] [place] [address] MUCOUS PRESENT Abnormal NONE [facility] Comment on above: Performed By: #### U A ####[facility] ([id number])0 [address], [address] [place] [address] Nitrite Ql (U) Negative Normal NEG [facility] Comment on above: Performed By: #### U A ####[facility] ([id number])2129 [address] [address] [place] [address] pH (U) 6.0 [pH] Normal 5.0-8.5 [facility] Comment on above: Performed By: #### U A ####[facility] ([id number])0 [address] [address] [place] [address] Protein Ql (U) 50 mg/dL Abnormal NEG [facility] Comment on above: Performed By: #### U A ####[facility] ([id number])0 [address] [address] [place] [address] R.B.CELLS 0 /hpf Normal 0-5 [facility] Comment on above: Performed By: #### U A ####[facility] ([id number])2130 [address] [address] [place] [address] Specific gravity (U) [Rel density] 1.018 Normal 1.003-1.035 [facility] Comment on above: Performed By: #### U A ####[facility] ([id number])[address], [place] [address] SQUAMOUS EPITHELIUM 2 /hpf Normal 0-5 [facility] [facility] Comment on above: Performed By: #### U A ####[facility] ([id number])[address], [place] [address] TURBIDITY CLEAR Normal CLEAR [facility] Comment on above: Performed By: #### U A ####[facility] ([id number])[address], [address], [place] [address] Urobilinogen (U) [Mass/Vol] mg/dL Normal <1.1 [facility] Comment on above: Performed By: #### U A ####[facility] ([id number])[address], [address] [place] [address] W.B.CELLS 1 /hpf Normal 0-5 [facility] Comment on above: Performed By: #### U A ####[facility] ([id number])[address], [address] [place] [address] Basic Metabolic Panelon 09-16 Calcium [Mass/Vol] 9.3 mg/dL Normal 8.2-10.2 [facility] Comment on above: Performed By: #### C BC, CMP, PT, PTT #### [facility] [address] [place] [address] [place] Chloride [Moles/Vol] 97 mmol/L Normal 95-114 [facility] Comment on above: Performed By: #### C BC, CMP, PT, PTT #### [facility] [address] [place] [address] [place] CO2 [Moles/Vol] 27.6 mmol/L Normal 22.0-30.0 [facility] Comment on above: Performed By: #### C BC, CMP, PT, PTT #### [facility] [address] [place] [address] [place] Creatinine [Mass/Vol] 2.48 mg/dL High 0.44-1.03 [facility] Comment on above: Performed By: #### C BC, CMP, PT, PTT #### [facility] [address] Creatinine Clr Calc Pharmacy 20.65 [facility] Comment on above: Result Comment: PERF ORMED BY: [place] [address] PATHOLOGIST NONPROFIT DIRECTOR NATHALIE VIEIRA M.D. Performed By: #### C BC, CMP, PT, PTT #### [facility] [address] Estimated GFR ( Berta 23 [facility] Comment on above: Result Comment: GFR estimated reference range: According to KDOQI guidelines, <60 ml/min/1.73m2 is sufficient to diagnose a patient with chronic kidney disease. Performed By: #### C BC, CMP, PT, PTT #### [facility] [address] Estimated GFR (Non- Am 19 [facility] Comment on above: Performed By: #### C BC, CMP, PT, PTT #### [address] Glucose [Mass/Vol] 144 mg/dL High 70-100 [facility] Comment on above: Result Comment: [place] om Glucose Reference Range is dependent on time and content of last meal. Glucose of more than 200 mg/dL in a nonstressed, ambulatory subject supports the diagnosis of Diabetes Mellitus. ADA recommended reference range Performed By: #### C BC, CMP, PT, PTT #### [facility] [address] [place] [address] Potassium [Moles/Vol] 4.2 mmol/L Normal 3.5-5.1 [facility] Comment on above: Performed By: #### C BC, CMP, PT, PTT #### [facility] [address] Sodium [Moles/Vol] 137 mmol/L Normal 136-146 [facility] Comment on above: Performed By: #### C BC, CMP, PT, PTT #### [facility] [address] Urea nitrogen [Mass/Vol] 33 mg/dL High 03-09 [facility] Comment on above: Performed By: #### C BC, CMP, PT, PTT #### [facility] [address] Glucose Poct Glucometerson 0 10-07-2021 Commemt1 Glu2: Cleaned Meter Normal [facility] Comment on above: Result Comment: PERF ORMED BY: [place] [address] PATHOLOGIST NONPROFIT DIRECTOR NATHALIE VIEIRA M.D. Performed By: #### C BC, CMP, PT, PTT #### [facility] [address] Glucose [Mass/Vol] 135 mg/dL Normal [facility] Comment on above: Result Comment: [facility] Glucose Reference Range is dependent on time and content of last meal. Glucose of more than 200 mg/dL in a nonstressed, ambulatory subject supports the diagnosis of Diabetes Mellitus. Performed By: #### C BC, CMP, PT, PTT #### [address] Basic Metabolic Panelon 04-2 Calcium [Mass/Vol] 9.3 mg/dL Normal 8.2-10.2 [facility] Comment on above: Performed By: #### B MP #### [place] [id number] [place] Chloride [Moles/Vol] 96 mmol/L Normal 95-114 [facility] Comment on above: Performed By: #### B MP #### [place] [address] [place] CO2 [Moles/Vol] 30.7 mmol/L High 22.0-30.0 [facility] Comment on above: Performed By: #### B MP #### [address] Creatinine [Mass/Vol] 2.47 mg/dL High 0.44-1.03 [facility] Comment on above: Performed By: #### B MP #### [place] [address] [place] Creatinine Clr Calc Pharmacy 20.73 [facility] Comment on above: Result Comment: PERF ORMED BY: [place] [address] PATHOLOGIST NONPROFIT DIRECTOR NATHALIE VIEIRA M.D. Performed By: #### B MP #### [address] Estimated GFR ( Berta 23 [facility] Comment on above: Result Comment: GFR estimated reference range: According to KDOQI guidelines, <60 ml/min/1.73m2 is sufficient to diagnose a patient with chronic kidney disease. Performed By: #### B MP #### [place] [address] [place] Estimated GFR (Non- Am 19 [facility] Comment on above: Performed By: #### B MP #### [address] Glucose [Mass/Vol] 160 mg/dL High 70-100 [facility] Comment on above: Result Comment: [place] om Glucose Reference Range is dependent on time and content of last meal. Glucose of more than 200 mg/dL in a nonstressed, ambulatory subject supports the diagnosis of Diabetes Mellitus. ADA recommended reference range Performed By: #### B MP #### [address] Potassium [Moles/Vol] 4.3 mmol/L Normal 3.5-5.1 [facility] Comment on above: Performed By: #### B MP #### [place] [address] [place] Sodium [Moles/Vol] 138 mmol/L Normal 136-146 [facility] Comment on above: Performed By: #### B MP #### [place] [address] [place] Urea nitrogen [Mass/Vol] 29 mg/dL High 9- [facility] Comment on above: Performed By: #### B MP #### [facility] [address] Glucose Poct Glucometerson 0 10-06-2021 Glucose [Mass/Vol] 218 mg/dL Normal [facility] Comment on above: Result Comment: [place] om Glucose Reference Range is dependent on time and content of last meal. Glucose of more than 200 mg/dL in a nonstressed, ambulatory subject supports the diagnosis of Diabetes Mellitus. PERFORMED BY: [facility] [address] [place] [address] PATHOLOGIST NONPROFIT DIRECTOR NATHALIE VIEIRA M.D. Performed By: #### C Ralph, CKPINEDA, HS TROP #### [address] Commemt1 Glu2: Cleaned Meter Normal [facility] Comment on above: Result Comment: PERF ORMED BY: [place] [address] PATHOLOGIST NONPROFIT DIRECTOR NATHALIE VIEIRA M.D. Performed By: #### C K, CKMB, HS TROP #### [address] Glucose [Mass/Vol] 190 mg/dL Normal [facility] Comment on above: Result Comment: [place] om Glucose Reference Range is dependent on time and content of last meal. Glucose of more than 200 mg/dL in a nonstressed, ambulatory subject supports the diagnosis of Diabetes Mellitus. Performed By: #### C K, CKMB, HS TROP #### [address] Glucose [Mass/Vol] 293 mg/dL Normal [facility] Comment on above: Result Comment: [place] om Glucose Reference Range is dependent on time and content of last meal. Glucose of more than 200 mg/dL in a nonstressed, ambulatory subject supports the diagnosis of Diabetes Mellitus. PERFORMED BY: [place] [address] PATHOLOGIST NONPROFIT DIRECTOR NATHALIE VIEIRA M.D. Performed By: #### G MARIANA #### Point of Care testing , Glucose [Mass/Vol] 143 mg/dL Normal [facility] Comment on above: Result Comment: [place] om Glucose Reference Range is dependent on time and content of last meal. Glucose of more than 200 mg/dL in a nonstressed, ambulatory subject supports the diagnosis of Diabetes Mellitus. PERFORMED BY: [place] [address] PATHOLOGIST NONPROFIT DIRECTOR NATHALIE VIEIRA M.D. Performed By: #### C K, CKMB, HS TROP #### [address] Glucose [Mass/Vol] 177 mg/dL Normal [facility] Comment on above: Result Comment: [place] om Glucose Reference Range is dependent on time and content of last meal. Glucose of more than 200 mg/dL in a nonstressed, ambulatory subject supports the diagnosis of Diabetes Mellitus. PERFORMED BY: [place] [address] PATHOLOGIST NONPROFIT DIRECTOR NATHALIE VIEIRA M.D. Performed By: #### C K, CKMB, HS TROP #### [address] Basic Metabolic Panelon 04-2 Calcium [Mass/Vol] 9.1 mg/dL Normal 8.2-10.2 [facility] Comment on above: Performed By: #### C BC, CMP, PT, PTT #### [place] [address] [place] Chloride [Moles/Vol] 98 mmol/L Normal 95-114 [facility] Comment on above: Performed By: #### C BC, CMP, PT, PTT #### [place] [address] [place] CO2 [Moles/Vol] 29.0 mmol/L Normal 22.0-30.0 [facility] Comment on above: Performed By: #### C BC, CMP, PT, PTT #### [address] Creatinine [Mass/Vol] 1.51 mg/dL High 0.44-1.03 [facility] Comment on above: Performed By: #### C BC, CMP, PT, PTT #### [facility] [address] Creatinine Clr Calc Pharmacy 33.69 [facility] Comment on above: Performed By: #### C BC, CMP, PT, PTT #### [facility] [address] Estimated GFR ( Berta 40 [facility] Comment on above: Result Comment: GFR estimated reference range: According to KDOQI guidelines, <60 ml/min/1.73m2 is sufficient to diagnose a patient with chronic kidney disease. Performed By: #### C BC, CMP, PT, PTT #### [facility] [address] Estimated GFR (Non- Am 33 [facility] Comment on above: Performed By: #### C BC, CMP, PT, PTT #### [facility] [address] Glucose [Mass/Vol] 143 mg/dL High 70-100 [facility] Comment on above: Result Comment: [place] om Glucose Reference Range is dependent on time and content of last meal. Glucose of more than 200 mg/dL in a nonstressed, ambulatory subject supports the diagnosis of Diabetes Mellitus. ADA recommended reference range Performed By: #### C BC, CMP, PT, PTT #### [facility] [address] Potassium [Moles/Vol] 3.7 mmol/L Normal 3.5-5.1 [facility] Comment on above: Performed By: #### C BC, CMP, PT, PTT #### [facility] [address] Sodium [Moles/Vol] 139 mmol/L Normal 136-146 [facility] Comment on above: Performed By: #### C BC, CMP, PT, PTT #### [facility] [address] [place] [address] [place] Urea nitrogen [Mass/Vol] 22 mg/dL Normal 9-23 [facility] Comment on above: Performed By: #### C BC, CMP, PT, PTT #### [address] Complete Blood Count Auto Di ffon 10-05-2021 Basophils (Bld) [#/Vol] 0.1 10*3/uL Normal 0.0-0.2 [facility] Comment on above: Result Comment: PERF ORMED BY: [place] [address] PATHOLOGIST NONPROFIT DIRECTOR NATHALIE VIEIRA M.D. Performed By: #### C K, CKMB, HS TROP #### [address] Basophils/100 WBC (Bld) 1.1 % Normal . [facility] Comment on above: Performed By: #### C K, CKMB, HS TROP #### [address] Eosinophils (Bld) [#/Vol] 0.1 10*3/uL Normal 0.0-0.45 [facility] Comment on above: Performed By: #### C K, CKMB, HS TROP #### [address] Eosinophils/100 WBC (Bld) 1.2 % Normal . [facility] Comment on above: Performed By: #### C K, CKMB, HS TROP #### [address] Erythrocyte distribution width (RBC) [Ratio] 13.0 % Normal 11.9-15.3 [facility] Comment on above: Performed By: #### C K, CKMB, HS TROP #### [address] Hematocrit (Bld) [Volume fraction] 37.0 % Normal 34.0-46.4 [facility] Comment on above: Performed By: #### C K, CKMB, HS TROP #### [address] [place] [address] [place] Hemoglobin (Bld) [Mass/Vol] 12.0 g/dL Normal 11.8-15.4 [facility] Comment on above: Performed By: #### C K, CKMB, HS TROP #### [address] Lymphocytes (Bld) [#/Vol] 1.9 10*3/uL Normal 1.00-4.8 [facility] Comment on above: Performed By: #### C K, CKMB, HS TROP #### [address] Lymphocytes/100 WBC (Bld) 21.6 % Normal . [facility] Comment on above: Performed By: #### C K, CKMB, HS TROP #### [address] MCH (RBC) [Entitic mass] 28.8 pg Normal 24.7-34.3 [facility] Comment on above: Performed By: #### C K, CKMB, HS TROP #### [address] MCV (RBC) [Entitic vol] 88.7 fL Normal 80-100 [facility] Comment on above: Performed By: #### C K, CKMB, HS TROP #### [address] Mean Corpuscular HGB Conc 32.5 g/dL Normal 32.0-35.0 [facility] Comment on above: Performed By: #### C K, CKMB, HS TROP #### [place] [address] [place] Monocytes (Bld) [#/Vol] 1.1 10*3/uL High 0.0-0.8 [facility] Comment on above: Performed By: #### C K, CKMB, HS TROP #### [address] Monocytes/100 WBC (Bld) 12.3 % Normal . [facility] Comment on above: Performed By: #### C K, CKMB, HS TROP #### [facility] [address] [place] [address] [place] Neutrophils (Bld) [#/Vol] 5.6 10*3/uL Normal 1.8-7.7 [facility] Comment on above: Performed By: #### C K, CKMB, HS TROP #### [facility] [address] Neutrophils/100 WBC (Bld) 63.8 % Normal . [facility] Comment on above: Performed By: #### C K, CKMB, HS TROP #### [facility] [address] [place] [address] [place] Nucleated RBC/100 WBC (Bld) [Ratio] 0.0 % Normal 0-0.5 [facility] Comment on above: Performed By: #### C K, CKMB, HS TROP #### [address] Platelet mean volume (Bld) [Entitic vol] 7.6 fL Normal 6.3-10.7 [facility] Comment on above: Performed By: #### C K, CKMB, HS TROP #### [place] [address] [place] Platelets (Bld) [#/Vol] 271 10*3/uL Normal 150-450 [facility] Comment on above: Performed By: #### C K, CKMB, HS TROP #### [place] [address] [place] RBC (Bld) [#/Vol] 4.17 10*6/uL Normal 3.60-5.00 [facility] Comment on above: Performed By: #### C K, CKMB, HS TROP #### [place] [address] [place] WBC (Bld) [#/Vol] 8.7 10*3/uL Normal 4.5-11.0 [facility] Comment on above: Performed By: #### C K, CKMB, HS TROP #### [address] [place] [address] [facility] lead ECGon 10-05-2021 ECG 12 lead ECG [facility] [address] [place] [address] [place] [address] Electrocardiograph Report Signed Patient: Rupa Gutierrez MR#: [id number] 1723 : 1940 Acct:[id number] Age/Sex: 80 / F ADM Date: 10/04/21 Loc: Room: [address] [place] [address] Type: DIS IN Attending Dr: Torrie Ruano MD Ordering Provider: Edgar Friend DO Date of Service: 10/05/21 ECG/ECG 12 lead ECG: dyspnea Copies to: Test Reason : Blood Pressure : / mmHG Vent. Rate : 083 BPM Atrial Rate : 083 BPM P-R Int : 188 ms QRS Dur : 084 ms QT Int : 400 ms P-R-T Axes : 040 -19 084 degrees QTc Int : 470 ms Normal sinus rhythm Minimal voltage criteria for LVH, may be normal variant Nonspecific T wave abnormality Prolonged QT Abnormal ECG When compared with ECG of 04-OCT-2021 10:03, No significant change was found Confirmed by YOLANDA MARINO DO ([id number]) on 10/05/2021 11:15:54 PM Referred By: Electronically Signed By:YOLANDA MARINO DO Transcribed By: MUS Signed By Yolanda Marino DO 10/05 5881 Normal [facility] Glucose Poct Glucometerson 0 10-05-2021 Glucose [Mass/Vol] 355 mg/dL Normal [facility] Comment on above: Result Comment: [facility] Glucose Reference Range is dependent on time and content of last meal. Glucose of more than 200 mg/dL in a nonstressed, ambulatory subject supports the diagnosis of Diabetes Mellitus. PERFORMED BY: [place] [address] PATHOLOGIST NONPROFIT DIRECTOR NATHALIE VIEIRA M.D. Performed By: #### C K, CKMB, HS TROP #### [address] Commemt1 Glu2: Cleaned Meter [facility] Comment on above: Result Comment: PERF ORMED BY: [facility] [address] [place] [address] PATHOLOGIST NONPROFIT DIRECTOR NATHALIE VIEIRA M.D. Performed By: #### C K, CKMB, HS TROP #### [address] Glucose [Mass/Vol] 313 mg/dL Normal [facility] Comment on above: Result Comment: [place] om Glucose Reference Range is dependent on time and content of last meal. Glucose of more than 200 mg/dL in a nonstressed, ambulatory subject supports the diagnosis of Diabetes Mellitus. Performed By: #### C K, CKMB, HS TROP #### [address] Commemt1 Glu2: Cleaned Meter [facility] Comment on above: Result Comment: PERF ORMED BY: [facility] [address] [place] [address] PATHOLOGIST NONPROFIT DIRECTOR NATHALIE VIEIRA M.D. Performed By: #### C K, CKMB, HS TROP #### [place] [address] [place] Glucose [Mass/Vol] 187 mg/dL Normal [facility] Comment on above: Result Comment: [place] om Glucose Reference Range is dependent on time and content of last meal. Glucose of more than 200 mg/dL in a nonstressed, ambulatory subject supports the diagnosis of Diabetes Mellitus. Performed By: #### C K, CKMB, HS TROP #### [place] [address] [place] Glucose [Mass/Vol] 130 mg/dL Normal [facility] Comment on above: Result Comment: [place] om Glucose Reference Range is dependent on time and content of last meal. Glucose of more than 200 mg/dL in a nonstressed, ambulatory subject supports the diagnosis of Diabetes Mellitus. PERFORMED BY: [facility] [address] [facility] [place] [address] PATHOLOGIST NONPROFIT DIRECTOR NATHALIE VIEIRA M.D. Performed By: #### C K, CKMB, HS TROP #### [facility] [address] [place] [id number] [facility] Glucose [Mass/Vol] 120 mg/dL Normal [facility] Comment on above: Result Comment: [facility] Glucose Reference Range is dependent on time and content of last meal. Glucose of more than 200 mg/dL in a nonstressed, ambulatory subject supports the diagnosis of Diabetes Mellitus. PERFORMED BY: [facility] [address] [place] [address] PATHOLOGIST NONPROFIT DIRECTOR NATHALIE VIEIRA M.D. Performed By: #### C BC, CMP, PT, PTT #### [facility] [address] Lipid Panelon 10-05-2021 Cholesterol [Mass/Vol] 160 mg/dL Normal 140-200 [facility] Comment on above: Result Comment: Chol less than 200 mg/dl low risk Chol 201-239 mg/dl borderline risk Chol 240 mg/dl and greater high risk Performed By: #### C BC, CMP, PT, PTT #### [facility] [address] Cholesterol in HDL [Mass/Vol] 37 mg/dL Normal 35-85 [facility] Comment on above: Result Comment: HDL CHOL ATP-III CLASSIFICATION Cardiovascular Risk HDL > or equal to 60 mg/dL LOW HDL < 40 mg/dL HIGH Performed By: #### C BC, CMP, PT, PTT #### [facility] [address] Cholesterol.total/Chol esterol in HDL [Mass ratio] 4.3 {ratio} Normal <5.0 [facility] Comment on above: Result Comment: PERF ORMED BY: [facility] [address] [place] [address] PATHOLOGIST NONPROFIT DIRECTOR NATHALIE VIEIRA M.D. Performed By: #### C BC, CMP, PT, PTT #### [facility] [address] LDL Cholesterol,Calculated 99 mg/dL Normal 0-100 [facility] Comment on above: Result Comment: LDL ATP III CLASSIFICATION LDL less than 100 mg/dL Optimal LDL 100-129 mg/dL Near or above optimal LDL 130-159 mg/dL Borderline high LDL 160-189 mg/dL High LDL greater than 189 mg/dL Very high Performed By: #### C BC, CMP, PT, PTT #### [facility] [address] Triglyceride w/Reflex 119 mg/dL Normal 35-149 [facility] Comment on above: Result Comment: TRIG ATP III CLASSIFICATION TRIG less than 150 mg/dL Normal TRIG 150-199 mg/dL Borderline high TRIG 200-500 mg/dL High TRIG greater than 500 mg/dL Very high Standard traceable to the Center for Disease Conrtrol and Prevention (CDC) test method. Performed By: #### C BC, CMP, PT, PTT #### [address] VLDL CHOLESTEROL 23 mg/dL Normal [facility] Comment on above: Performed By: #### C BC, CMP, PT, PTT #### [address] Magnesiumon 10-05-2021 Magnesium [Mass/Vol] 1.8 mg/dL Normal 1.6-2.6 [facility] Comment on above: Performed By: #### C BC, CMP, PT, PTT #### [place] [address] [place] Partial Thromboplastin Timeo n 10-05-2021 aPTT Coag (Bld) [Time] 65.5 s High 25.1-36.5 [facility] Comment on above: Order Comment: List the anticoagulant: HEPARIN, UNFRACTIONATED Result Comment: PERF ORMED BY: [place] [address] PATHOLOGIST NONPROFIT DIRECTOR NATHALIE VIEIRA M.D. Performed By: #### C K, CKMB, HS TROP #### [address] aPTT Coag (Bld) [Time] 63.0 s High 25.1-36.5 [facility] Comment on above: Order Comment: List the anticoagulant: HEPARIN, UNFRACTIONATED Result Comment: PERF ORMED BY: [place] [address] PATHOLOGIST NONPROFIT DIRECTOR NATHALIE VIEIRA M.D. Performed By: #### C K, CKMB, HS TROP #### [place] [address] [place] Partial Thromboplastin Time Normal 25.1-36.5 [facility] Comment on above: Result Comment: PT S TILL RECEIVING HEPARIN. PLEASE COLLECT AT 10AM PER KIANNA CULLEN PERFORMED BY: [place] [address] PATHOLOGIST NONPROFIT DIRECTOR NATHALIE VIEIRA M.D. Performed By: #### C K, CKMB, HS TROP #### [address] aPTT Coag (Bld) [Time] 51.9 s High 25.1-36.5 [facility] Comment on above: Order Comment: List the anticoagulant: HEPARIN, UNFRACTIONATED Result Comment: PERF ORMED BY: [place] [address] PATHOLOGIST NONPROFIT DIRECTOR NATHALIE VIEIRA M.D. Performed By: #### C K, CKMB, HS TROP #### [place] [address] [place] Prothrombin Time INRon 10-05 INR Coag (PPP) [Relative time] 1.1 {INR} Normal [facility] Comment on above: Result Comment: INR Therapeutic Range A) Pre- and Peroperative OAT started two weeks before surgery. NOT HIP SURGERY: 1.5 - 2.5 HIP SURGERY: 2 - 3 B) Primary and secondary prevention of venous THROMBOSIS: 2 - 3 C) Active venous thrombosis, pulmonary embolism and prevention of recurrent venous thrombosis: 2 - 3 D) Prevention of arterial thromboembolism including patients with mechanical heart valves: 3 - 4.5 Performed By: #### C K, CKMB, HS TROP #### [place] [address] [place] PT Coag (PPP) [Time] 12.6 s Normal 9.0-12.9 [facility] Comment on above: Performed By: #### C K, CKMB, HS TROP #### [facility] [address] [place] [address] Troponin I High Sensitivityo n 10-05-2021 Troponin I High Sensitivity 314 pg/mL Off scale high 0-15 [facility] Comment on above: Result Comment: Resu lts called at 0738 on 10/05/21 PERFORMED BY: [place] [address] PATHOLOGIST NONPROFIT DIRECTOR NATHALIE VIEIRA M.D. Performed By: #### C K, CKMB, HS TROP #### [address] A1C with Estimated Average G luon 10-04-2021 Glucose [Mass/Vol] 235 mg/dL Normal [facility] Comment on above: Result Comment: PERF ORMED BY: [place] [address] PATHOLOGIST NONPROFIT DIRECTOR NATHALIE VIEIRA M.D. Performed By: #### C K, CKMB, HS TROP #### [facility] [address] [place] [address] HbA1c (Bld) [Mass fraction] 9.8 % High 4.3-5.6 [facility] Comment on above: Result Comment: Incr eased risk for diabetes: 5.7 - 6.4 diabetes: >6.4 glycemic control for adults with diabetes: <7.0 Performed By: #### C K, CKMB, HS TROP #### [facility] [address] [place] [address] Complete Blood Count Auto Di ffon 10-04-2021 Basophils (Bld) [#/Vol] 0.1 10*3/uL Normal 0.0-0.2 [facility] Comment on above: Result Comment: PERF ORMED BY: [place] [address] PATHOLOGIST NONPROFIT DIRECTOR NATHALIE VIEIRA M.D. Performed By: #### C BC, CMP, PT, PTT #### [facility] [address] [place] [address] [place] Basophils/100 WBC (Bld) 0.5 % Normal . [facility] Comment on above: Performed By: #### C BC, CMP, PT, PTT #### [facility] [address] Eosinophils (Bld) [#/Vol] 0.2 10*3/uL Normal 0.0-0.45 [facility] Comment on above: Performed By: #### C BC, CMP, PT, PTT #### [facility] [facility] [address] [place] [address] [place] Eosinophils/100 WBC (Bld) 1.6 % Normal . [facility] Comment on above: Performed By: #### C BC, CMP, PT, PTT #### [address] Erythrocyte distribution width (RBC) [Ratio] 13.1 % Normal 11.9-15.3 [facility] Comment on above: Performed By: #### C BC, CMP, PT, PTT #### [address] Hematocrit (Bld) [Volume fraction] 38.6 % Normal 34.0-46.4 [facility] Comment on above: Performed By: #### C BC, CMP, PT, PTT #### [place] [address] [place] Hemoglobin (Bld) [Mass/Vol] 12.5 g/dL Normal 11.8-15.4 [facility] Comment on above: Performed By: #### C BC, CMP, PT, PTT #### [facility] [address] [place] [address] [place] Lymphocytes (Bld) [#/Vol] 1.3 10*3/uL Normal 1.00-4.8 [facility] Comment on above: Performed By: #### C BC, CMP, PT, PTT #### [place] [address] [place] Lymphocytes/100 WBC (Bld) 12.0 % Normal . [facility] Comment on above: Performed By: #### C BC, CMP, PT, PTT #### [address] MCH (RBC) [Entitic mass] 29.0 pg Normal 24.7-34.3 [facility] Comment on above: Performed By: #### C BC, CMP, PT, PTT #### [address] MCV (RBC) [Entitic vol] 89.2 fL Normal 80-100 [facility] Comment on above: Performed By: #### C BC, CMP, PT, PTT #### [address] Mean Corpuscular HGB Conc 32.5 g/dL Normal 32.0-35.0 [facility] Comment on above: Performed By: #### C BC, CMP, PT, PTT #### [address] Monocytes (Bld) [#/Vol] 1.2 10*3/uL High 0.0-0.8 [facility] Comment on above: Performed By: #### C BC, CMP, PT, PTT #### [address] Monocytes/100 WBC (Bld) 11.0 % Normal . [facility] Comment on above: Performed By: #### C BC, CMP, PT, PTT #### [address] Neutrophils (Bld) [#/Vol] 8.4 10*3/uL High 1.8-7.7 [facility] Comment on above: Performed By: #### C BC, CMP, PT, PTT #### [address] Neutrophils/100 WBC (Bld) 74.9 % Normal . [facility] Comment on above: Performed By: #### C BC, CMP, PT, PTT #### [address] Nucleated RBC/100 WBC (Bld) [Ratio] 0.0 % Normal 0-0.5 [facility] Comment on above: Performed By: #### C BC, CMP, PT, PTT #### [facility] [address] Platelet mean volume (Bld) [Entitic vol] 7.7 fL Normal 6.3-10.7 [facility] Comment on above: Performed By: #### C BC, CMP, PT, PTT #### [facility] [address] Platelets (Bld) [#/Vol] 269 10*3/uL Normal 150-450 [facility] Comment on above: Performed By: #### C BC, CMP, PT, PTT #### [address] RBC (Bld) [#/Vol] 4.32 10*6/uL Normal 3.60-5.00 [facility] Comment on above: Performed By: #### C BC, CMP, PT, PTT #### [address] WBC (Bld) [#/Vol] 11.1 10*3/uL High 4.5-11.0 [facility] Comment on above: Performed By: #### C BC, CMP, PT, PTT #### [address] Comprehensive Metabolic Pane josé luis 10-04-2021 Albumin [Mass/Vol] 3.5 g/dL Normal 3.2-5.5 [facility] Comment on above: Performed By: #### C BC, CMP, PT, PTT #### [address] Albumin/Globulin [Mass ratio] 1.1 {ratio} Normal [facility] Comment on above: Performed By: #### C BC, CMP, PT, PTT #### [address] ALP [Catalytic activity/Vol] 62 U/L Normal 32-92 [facility] Comment on above: Performed By: #### C BC, CMP, PT, PTT #### [facility] [address] [place] [id number] [place] ALT [Catalytic activity/Vol] 10 U/L Normal 10-60 [facility] Comment on above: Performed By: #### C BC, CMP, PT, PTT #### [facility] [address] [place] [address] [place] AST [Catalytic activity/Vol] 12 U/L Normal 10-42 [facility] Comment on above: Performed By: #### C BC, CMP, PT, PTT #### [facility] [address] Bilirubin [Mass/Vol] 0.7 mg/dL Normal 0.3-1.2 [facility] Comment on above: Performed By: #### C BC, CMP, PT, PTT #### [facility] [address] Calcium [Mass/Vol] 9.1 mg/dL Normal 8.2-10.2 [facility] Comment on above: Performed By: #### C BC, CMP, PT, PTT #### [facility] [address] [place] [address] [place] Chloride [Moles/Vol] 98 mmol/L Normal 95-114 [facility] Comment on above: Performed By: #### C BC, CMP, PT, PTT #### [facility] [address] [place] [address] [place] CO2 [Moles/Vol] 29.0 mmol/L Normal 22.0-30.0 [facility] Comment on above: Performed By: #### C BC, CMP, PT, PTT #### [facility] [address] [place] [address] [place] Creatinine [Mass/Vol] 1.39 mg/dL High 0.44-1.03 [facility] Comment on above: Performed By: #### C BC, CMP, PT, PTT #### [facility] [address] [place] [address] [place] Creatinine Clr Calc Pharmacy 36.54 Normal [facility] Comment on above: Result Comment: PERF ORMED BY: [place] [address] PATHOLOGIST NONPROFIT DIRECTOR NATHALIE VIEIRA M.D. Performed By: #### C BC, CMP, PT, PTT #### [facility] [address] Estimated GFR ( Berta 44 [facility] Comment on above: Result Comment: GFR estimated reference range: According to KDOQI guidelines, <60 ml/min/1.73m2 is sufficient to diagnose a patient with chronic kidney disease. Performed By: #### C BC, CMP, PT, PTT #### [address] Estimated GFR (Non- Am 36 [facility] Comment on above: Performed By: #### C BC, CMP, PT, PTT #### [address] Globulin (S) [Mass/Vol] 3.1 g/dL [facility] Comment on above: Performed By: #### C BC, CMP, PT, PTT #### [address] Glucose [Mass/Vol] 199 mg/dL High 70-100 [facility] Comment on above: Result Comment: [place] Glucose Reference Range is dependent on time and content of last meal. Glucose of more than 200 mg/dL in a nonstressed, ambulatory subject supports the diagnosis of Diabetes Mellitus. ADA recommended reference range Performed By: #### C BC, CMP, PT, PTT #### [facility] [address] Potassium [Moles/Vol] 4.0 mmol/L Normal 3.5-5.1 [facility] Comment on above: Performed By: #### C BC, CMP, PT, PTT #### [address] Protein [Mass/Vol] 6.6 g/dL Normal 6.1-7.9 [facility] Comment on above: Performed By: #### C BC, CMP, PT, PTT #### [facility] [address] [place] [id number] [place] Sodium [Moles/Vol] 137 mmol/L Normal 136-146 [facility] Comment on above: Performed By: #### C BC, CMP, PT, PTT #### [facility] [address] [place] [id number] [place] Urea nitrogen [Mass/Vol] 18 mg/dL Normal 9-23 [facility] Comment on above: Performed By: #### C BC, CMP, PT, PTT #### [facility] [address] [place] [id number] [place] Creatine Kinaseon 10-04-2021 CK [Catalytic activity/Vol] 51 U/L Normal 22-269 [facility] Comment on above: Performed By: #### C K, CKMB, HS TROP #### [facility] [address] [place] [id number] [place] CK [Catalytic activity/Vol] 45 U/L Normal 22-269 [facility] Comment on above: Performed By: #### C K, CKMB, HS TROP #### [facility] [address] [place] [id number] [place] CK [Catalytic activity/Vol] 45 U/L Normal 22- [facility] Comment on above: Performed By: #### C K, CKMB, HS TROP #### [facility] [address] [place] [id number] [place] Creatinine Kinase MBon 10-04 CK.MB [Mass/Vol] 2.1 ng/mL Normal 0.6-6.3 [facility] Comment on above: Performed By: #### C K, CKMB, HS TROP #### [facility] [address] [place] [address] [place] CKMB Relative Index 4.1 % High 0.00-2.50 [facility] Comment on above: Performed By: #### C K, CKMB, HS TROP #### [facility] [address] [place] [id number] [place] CK.MB [Mass/Vol] 2.4 ng/mL Normal 0.6-6.3 [facility] Comment on above: Performed By: #### C K, CKMB, HS TROP #### [facility] [address] CKMB Relative Index 5.3 % High 0.00-2.50 [facility] Comment on above: Performed By: #### C K, CKMB, HS TROP #### [facility] [address] CK.MB [Mass/Vol] 2.3 ng/mL Normal 0.6-6.3 [facility] Comment on above: Performed By: #### C K, CKMB, HS TROP #### [facility] [address] CKMB Relative Index 5.1 % High 0.00-2.50 [facility] Comment on above: Performed By: #### C K, CKMB, HS TROP #### [facility] [address] ECG 12 lead ECGon 10-04-2021 ECG 12 lead ECG [facility] Main [place] [address] [place] [address] Electrocardiograph Report Signed Patient: Rupa Gutierrez MR#: [id number] 1723 : 1940 Acct:[id number] Age/Sex: 80 / F ADM Date: 10/04/21 Loc: Room: [address] [place] [address] Type: DIS IN Attending Dr: Torrie Ruano MD Ordering Provider: Edgar Friend DO Date of Service: 10/04/21 ECG/ECG 12 lead ECG: dyspnea Copies to: Test Reason : Blood Pressure : / mmHG Vent. Rate : 075 BPM Atrial Rate : 075 BPM P-R Int : 180 ms QRS Dur : 086 ms QT Int : 424 ms P-R-T Axes : 051 -27 086 degrees QTc Int : 473 ms Normal sinus rhythm Nonspecific ST and T wave abnormality Lateral leads Abnormal ECG No previous ECGs available Confirmed by YOLANDA MARINO DO ([id number]) on 10/04/2021 6:42:30 PM Referred By: Electronically Signed By:YOLANDA MARINO DO Transcribed By: MUS Signed By Yolanda Marino DO 10/04 [facility] echo transthoracicon [facility] echo transthoracic [facility] Main [place] [address] [place], [place] [id number] Echocardiogram Signed Patient: Rupa Gutierrez MR#: [id number] 1723 : 1940 Acct:[id number] Age/Sex: 80 / F ADM Date: 10/04/21 Loc: Room: [address] [place] [address] Type: DIS IN Attending Dr: Torrie Ruano MD Ordering Provider: Edgar Friend DO Date of Service: 10/04/21 [facility] echo transthoracic: dyspnea, suspect new CHF Copies to: DO Sunitha Prince MD Weight: 245 lb Performed By: Domitila Rivera RDCS BSA: 2.0 m2 BP: 165/77 mmHg HR: 85 Reason For Study: dyspnea, suspect new CHF History: Former Smoker, DM, HTN Interpretation Summary The left ventricular wall motion is normal. Mild to moderate concentric left ventricular hypertrophy. Ejection Fraction = 60-65%. A variety of Doppler measurements indicate impaired left ventricular relaxation, which is associated with grade I/IV or mild diastolic dysfunction. There is mild tricuspid regurgitation. Right ventricular systolic pressure is elevated at 50-60mmHg. Right ventricular systolic pressure is consistent with moderate pulmonary hypertension. There is no comparison study available. Procedure/Quality: A two-dimensional transthoracic echocardiogram with color flow and Doppler was performed. The study was technically good in quality. Left Ventricle: The left ventricular size is normal. Mild to moderate concentric left ventricular hypertrophy. Ejection Fraction = 60-65%. A variety of Doppler measurements indicate impaired left ventricular relaxation, which is associated with grade I/IV or mild diastolic dysfunction. The left ventricular wall motion is normal. Left Atrium: The left atrium appears normal in size. Right Atrium: The right atrium appears normal in size. Right Ventricle: The right ventricular size, thickness and function are normal. Aortic Valve: The aortic valve is normal in structure and function. No aortic regurgitation is present. Mitral Valve: The mitral valve is normal in structure and function. There is no mitral regurgitation noted. Tricuspid Valve: The tricuspid valve is normal in structure and function. There is mild tricuspid regurgitation. Right ventricular systolic pressure is elevated at 50-60mmHg. Right ventricular systolic pressure is consistent with moderate pulmonary hypertension. Pulmonic Valve: The pulmonic valve is normal in structure and function. Arteries: The aortic root is normal size. Pericardium/Pleura: No pericardial effusion seen. There is no pleural effusion. IVC/Hepatic Viens: The inferior vena cava is normal in size, with a normal collapsibility index. Measurements with Normals IVSd: 1.5 cm (0.7-1.1 cm)LVIDd: 4.0 cm (3.7-5.4 cm) LVPWd: 1.3 cm (0.7-1.1 cm)LVIDs: 2.4 cm (2.3-3.6 cm) LA dimension: 3.4 cm (2.3-4.0 cm)Ao root diam: 3.1 cm(2.0-3.6 cm) asc Aorta Diam: 3.2 cm(2.1-3.4cm) Doppler with Normals RVSP(TR): 56.6 mmHg (18-35mmHg) LV V1 max: 95.7 cm/sec (0.7-1.7m/s)MV E max mayito: 110.0 cm/sec(0.8-1.3m/s) MV A max mayito: 106.7 cm/sec(0.0-0.0m/s) MV E/A: 1.0 (<1.5) MMode/2D Measurements Calculations TAPSE: 2.3 cm FS: 39.3 % Ao root area: LVOT diam: 2.3 cm RV S Mayito: EDV(Teich): 7.5 cm2 LVOT area: 4.2 cm2 12.7 cm/sec 69.8 ml ESV(Teich): 20.7 ml EF(Teich): 70.3 % __ LVLd ap4: 7.8 cm SV(MOD-sp4): LAV(MOD-sp4): LA A2 area: 13.8 cm2 EDV(MOD-sp4): 52.7 ml 25.2 ml 74.0 ml LAV(MOD-sp2): LA A4 area: 12.0 cm2 LVLs ap4: 6.8 cm 28.3 ml LA length (vol): ESV(MOD-sp4): 4.6 cm 21.3 ml LA vol: 30.8 ml EF(MOD-sp4): 71.2 % LA vol index: 15.5 ml/m2 Doppler Measurements Calculations MV dec time: MV max PG: E/E' lat: 16.5 MV dec slope: 0.19 sec 88.0 mmHg E/E' med: 21.3 584.0 cm/sec2 __ Ao V2 max: LV V1 max PG: MR max mayito: TV max P.0 mmHg 142.7 cm/sec 3.7 mmHg 469.3 cm/sec Ao max P.1 mmHgLV V1 mean PG: MR max PG: Ao mean P.4 mmHg 88.4 mmHg 5.5 mmHg LV V1 mean: Ao V2 mean: 73.8 cm/sec 114.4 cm/sec LV V1 VTI: 18.7 cm Ao V2 VTI: 27.8 cm GIANNI(I,D): 2.8 cm2 GIANNI(V,D): 2.8 cm2 __ TR max mayito: 359.2 cm/sec TR max P.6 mmHg RAP systole: 5.0 mmHg Transcribed By: SCV Performed At: 10/04/21715 Signed By: Sunitha Nathan MD 10/04/21927 [facility] Free T4 (Free Thyroxine)on 0 10-04-2021 Free T4 [Mass/Vol] 0.88 ng/dL Normal 0.61-1.12 [facility] Comment on above: Performed By: #### C K, CKMB, HS TROP #### [place] [id number] [place] Glucose Poct Glucometerson 0 10-04-2021 Commemt1 Glu2: Cleaned Meter Normal [facility] Comment on above: Result Comment: PERF ORMED BY: [place] [address] PATHOLOGIST NONPROFIT DIRECTOR NATHALIE VIEIRA M.D. Performed By: #### C K, CKMB, HS TROP #### [address] Glucose [Mass/Vol] 363 mg/dL Normal [facility] Comment on above: Result Comment: [place] om Glucose Reference Range is dependent on time and content of last meal. Glucose of more than 200 mg/dL in a nonstressed, ambulatory subject supports the diagnosis of Diabetes Mellitus. Performed By: #### C K, CKMB, HS TROP #### [address] Glucose [Mass/Vol] 273 mg/dL Normal [facility] Comment on above: Result Comment: [place] om Glucose Reference Range is dependent on time and content of last meal. Glucose of more than 200 mg/dL in a nonstressed, ambulatory subject supports the diagnosis of Diabetes Mellitus. PERFORMED BY: [place] [address] PATHOLOGIST NONPROFIT DIRECTOR NATHALIE VIEIRA M.D. Performed By: #### C K, CKMB, HS TROP #### [place] [address] [place] Glucose [Mass/Vol] 228 mg/dL Normal [facility] Comment on above: Result Comment: [place] om Glucose Reference Range is dependent on time and content of last meal. Glucose of more than 200 mg/dL in a nonstressed, ambulatory subject supports the diagnosis of Diabetes Mellitus. PERFORMED BY: [place] [address] PATHOLOGIST NONPROFIT DIRECTOR NATHALIE VIEIRA M.D. Performed By: #### C K, CKMB, HS TROP #### [facility] [address] [place] [address] [place] Partial Thromboplastin Timeo n 10-04-2021 aPTT Coag (Bld) [Time] 58.7 s High 25.1-36.5 [facility] Comment on above: Result Comment: PERF ORMED BY: [place] [address] PATHOLOGIST NONPROFIT DIRECTOR NATHALIE VIEIRA M.D. Performed By: #### P TT #### [address] aPTT Coag (Bld) [Time] 48.5 s High 25.1-36.5 [facility] Comment on above: Result Comment: PERF ORMED BY: [place] [address] PATHOLOGIST NONPROFIT DIRECTOR NATHALIE VIEIRA M.D. Performed By: #### C K, CKMB, HS TROP #### [address] aPTT Coag (Bld) [Time] 37.1 s High 25.1-36.5 [facility] Comment on above: Result Comment: PERF ORMED BY: [place] [address] PATHOLOGIST NONPROFIT DIRECTOR NATHALIE VIEIRA M.D. Performed By: #### C BC, CMP, PT, PTT #### [place] [address] [place] Prothrombin Time INRon 10-04 INR Coag (PPP) [Relative time] 1.1 {INR} Normal [facility] Comment on above: Result Comment: INR Therapeutic Range A) Pre- and Peroperative OAT started two weeks before surgery. NOT HIP SURGERY: 1.5 - 2.5 HIP SURGERY: 2 - 3 B) Primary and secondary prevention of venous THROMBOSIS: 2 - 3 C) Active venous thrombosis, pulmonary embolism and prevention of recurrent venous thrombosis: 2 - 3 D) Prevention of arterial thromboembolism including patients with mechanical heart valves: 3 - 4.5 Performed By: #### C BC, CMP, PT, PTT #### [facility] [address] PT Coag (PPP) [Time] 12.1 s Normal 9.0-12.9 [facility] Comment on above: Performed By: #### C BC, CMP, PT, PTT #### [facility] [address] [place] [address] Thyroid Stimulating Hormoneo n 10-04-2021 TSH Qn 3.02 m[IU]/L Normal 0.45-5.33 [facility] Comment on above: Result Comment: PERF ORMED BY: [place] [address] PATHOLOGIST NONPROFIT DIRECTOR NATHALIE VIEIRA M.D. Performed By: #### C BC, CMP, PT, PTT #### [facility] [address] [place] [address] Thyroxine (T4) Totalon 10-04 T4 [Mass/Vol] 9.18 ug/dL Normal 5.39-11.82 [facility] Comment on above: Performed By: #### C BC, CMP, PT, PTT #### [facility] [address] [place] [address] Troponin I High Sensitivityo n 10-04-2021 Troponin I High Sensitivity 288 pg/mL Off scale high 0-15 [facility] Comment on above: Result Comment: Resu lts called at 1407 on 10/04/21 PERFORMED BY: [place] [address] PATHOLOGIST NONPROFIT DIRECTOR NATHALIE VIEIRA M.D. Performed By: #### C K, CKMB, HS TROP #### [facility] [address] [place] [address] Troponin I High Sensitivity 350 pg/mL Off scale high 0-15 [facility] Comment on above: Result Comment: Resu lts called at 1117 on 10/04/21 PERFORMED BY: [place] [address] PATHOLOGIST NONPROFIT DIRECTOR NATHALIE VIEIRA M.D. Performed By: #### C K, CKMB, HS TROP #### [facility] [address] [place] [id number] [place] Troponin I High Sensitivity 371 pg/mL Off scale high 0-15 [facility] Comment on above: Result Comment: Resu lts called at 0749 on 10/04/21 PERFORMED BY: [place] [address] PATHOLOGIST NONPROFIT DIRECTOR NATHALIE VIEIRA M.D. Performed By: #### C K, CKMB, HS TROP #### [facility] [address] [place] [address] [facility] V[facility] Sign[facility] Date Time Vital Sign Value Performing Clinician Kindra stringer 12-31-2024 15:00-0400 Body temperature 97.5 [degF] Freddy Светланаrobby COMPRESSOR OPERATOR ADJUSTER-OPTICAL COATING TECHNICIAN Work Phone: [facility] 12-31-2024 15:00-0400 Diastolic blood pressure 79 mm[Hg] Freddy Alvin COMPRESSOR OPERATOR ADJUSTER-OPTICAL COATING TECHNICIAN Work Phone: [facility] 12-31-2024 15:00-0400 Heart rate 90 /min Freddy Manzo COMPRESSOR OPERATOR ADJUSTER-OPTICAL COATING TECHNICIAN Work Phone: [facility] [employer] [facility] 12-31-2024 15:00-0400 Respiratory rate 18 /min Freddy Manzo COMPRESSOR OPERATOR ADJUSTER-OPTICAL COATING TECHNICIAN Work Phone: [facility] 12-31-2024 15:00-0400 Systolic blood pressure 147 mm[Hg] Freddy Sotomayorrobby COMPRESSOR OPERATOR ADJUSTER-OPTICAL COATING TECHNICIAN Work Phone: [facility] 12-24-2024 11:34-0400 Body height 149.9 cm Claudia Taylor MD [facility] 12-24-2024 11:34-0400 Body mass index (BMI) [Ratio] 43.63 kg/m2 Claudia Taylor MD Work Phone: [facility] [employer] [facility] 12-24-2024 11:34-0400 Body weight 97.98 kg Claudia Taylor MD Work Phone: [facility] 12-24-2024 11:34-0400 Diastolic blood pressure 51 mm[Hg] Claudia Taylor MD Work Phone: [facility] 12-24-2024 11:34-0400 Heart rate 96 /min Claudia Taylor MD Work Phone: [facility] 12-24-2024 11:34-0400 Systolic blood pressure 109 mm[Hg] Claudia Taylor MD Work Phone: [facility] 11-18-2024 13:24-0400 Body temperature 98.01 [degF] Codie March COMPRESSOR OPERATOR ADJUSTER-OPTICAL COATING TECHNICIAN Work Phone: [facility] 11-18-2024 13:24-0400 Diastolic blood pressure 57 mm[Hg] Codie March COMPRESSOR OPERATOR ADJUSTER-OPTICAL COATING TECHNICIAN Work Phone: [facility] 11-18-2024 13:24-0400 Heart rate 96 /min Codie March COMPRESSOR OPERATOR ADJUSTER-OPTICAL COATING TECHNICIAN Work Phone: [facility] 11-18-2024 13:24-0400 Respiratory rate 18 /min Codie March COMPRESSOR OPERATOR ADJUSTER-OPTICAL COATING TECHNICIAN Work Phone: [facility] 11-18-2024 13:24-0400 Systolic blood pressure 103 mm[Hg] Codie March COMPRESSOR OPERATOR ADJUSTER-OPTICAL COATING TECHNICIAN Work Phone: [facility] 11-14-2024 06:25-0400 Body mass index (BMI) [Ratio] 43.69 kg/m2 Steven Mercado MD Work Phone: [facility] 11-14-2024 06:25-0400 Body weight 98.11 kg Steven Mercado MD Work Phone: [facility] 11-14-2024 04:28-0400 Body temperature 98.4 [degF] Steven Mercado MD Work Phone: [facility] 11-14-2024 04:28-0400 Diastolic blood pressure 53 mm[Hg] Steven Mercado MD Work Phone: [facility] 11-14-2024 04:28-0400 Heart rate 113 /min Steven Mercado MD Work Phone: [facility] 11-14-2024 04:28-0400 Respiratory rate 20 /min Steven Mercado MD Work Phone: [facility] 11-14-2024 04:28-0400 SaO2% (BldA) [Mass fraction] 94 % Steven Mercado MD Work Phone: [facility] 11-14-2024 04:28-0400 Systolic blood pressure 134 mm[Hg] Steven Mercado MD Work Phone: [facility] 11-08-2024 17:36-0400 Body height 149.9 cm Steven Mercado MD Work Phone: [facility] 10-13-2024 11:00-0400 Body temperature 97.9 [degF] Codie March COMPRESSOR OPERATOR ADJUSTER-OPTICAL COATING TECHNICIAN Work Phone: [facility] 10-13-2024 11:00-0400 Diastolic blood pressure 77 mm[Hg] Codie March COMPRESSOR OPERATOR ADJUSTER-OPTICAL COATING TECHNICIAN Work Phone: [facility] 10-13-2024 11:00-0400 Heart rate 90 /min Codie March COMPRESSOR OPERATOR ADJUSTER-OPTICAL COATING TECHNICIAN Work Phone: [facility] 10-13-2024 11:00-0400 Respiratory rate 18 /min Codie March COMPRESSOR OPERATOR ADJUSTER-OPTICAL COATING TECHNICIAN Work Phone: [facility] 10-13-2024 11:00-0400 Systolic blood pressure 118 mm[Hg] Codie March COMPRESSOR OPERATOR ADJUSTER-OPTICAL COATING TECHNICIAN Work Phone: [facility] 09-11-2024 10:50-0400 Body height 152.4 cm Amado Montoya MD Work Phone: [facility] [employer] [facility] 09-11-2024 10:50-0400 Diastolic blood pressure 62 mm[Hg] Amado Montoya MD Work Phone: [facility] 09-11-2024 10:50-0400 Heart rate 108 /min Amado Montoya MD Work Phone: [facility] 09-11-2024 10:50-0400 SaO2% (BldA) [Mass fraction] 98 % Amado Montoya MD Work Phone: [facility] 09-11-2024 10:50-0400 Systolic blood pressure 118 mm[Hg] Amado Montoya MD Work Phone: [facility] 02-18-2024 15:21-0400 Body height 149.9 cm Jaclyn Delroy DPM Work Phone: [facility] 02-18-2024 15:21-0400 Body mass index (BMI) [Ratio] 38.38 kg/m2 Jaclyn Delroy DPM Work Phone: [facility] 02-18-2024 15:21-0400 Body weight 86.18 kg Jaclyn Delroy DPM Work Phone: [facility] 02-14-2024 12:31-0400 Body height 147.3 cm Pam Oberneder COMPRESSOR OPERATOR ADJUSTER-OPTICAL COATING TECHNICIAN Work Phone: [facility] 02-14-2024 12:31-0400 Body mass index (BMI) [Ratio] 48.07 kg/m2 Pam Oberneder COMPRESSOR OPERATOR ADJUSTER-OPTICAL COATING TECHNICIAN Work Phone: [facility] 02-14-2024 12:31-0400 Body weight 104.33 kg Pam Oberneder COMPRESSOR OPERATOR ADJUSTER-OPTICAL COATING TECHNICIAN Work Phone: [facility] 02-14-2024 12:31-0400 Diastolic blood pressure 78 mm[Hg] Pam Oberneder COMPRESSOR OPERATOR ADJUSTER-OPTICAL COATING TECHNICIAN Work Phone: [facility] 02-14-2024 12:31-0400 Systolic blood pressure 137 mm[Hg] Pam Oberneder COMPRESSOR OPERATOR ADJUSTER-OPTICAL COATING TECHNICIAN Work Phone: [facility] 07-24-2023 10:43-0500 Body height 149.9 cm Jcalyn Potts DPM Work Phone: [facility] 07-24-2023 10:43-0500 Body mass index (BMI) [Ratio] 38.38 kg/m2 Jaclyn Potts DPM Work Phone: [facility] 07-24-2023 10:43-0500 Body weight 86.18 kg Jaclyn Delroy DPM Work Phone: [facility] Healthcare Encounters Encounter Date Encounter Type Care Provider Facility Start: 01-29-2025 End: 01-29-2025 Clinisync Result Encounter Jose Rogers MD Work Phone: [facility] External Department Unsolicited Start: 01-29-2025 End: 01-29-2025 Clinisync Result Encounter Jose Rogers MD Work Phone: [facility] External Department Unsolicited Start: 01-23-2025 End: 01-23-2025 [facility] Start: 01-18-2025 End: 01-18-2025 Documentation procedure Jaclyn Potts DPM Work Phone: [facility] Start: 01-13-2025 End: 01-20-2025 Evaluation and management of inpatient [facility] Start: 01-04-2025 End: 01-04-2025 Telephone encounter Geeta Bhatia [facility] Start: 12-31-2024 End: 12-31-2024 Office outpatient visit 10 minutes Codie March APRN-OPTICAL COATING TECHNICIAN Work Phone: [facility] Comment on above: Non-pressure ulcer o f lower extremity with fat layer exposed, right (CMS-HCC) (Primary Dx); Pressure injury of right heel, unstageable (CMS-HCC); Venous stasis ulcer of left lower leg with edema of left lower leg (CMS-HCC); Lymphorrhea; 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 Start: 12-25-2024 End: 12-29-2024 Telephone encounter Claudia Taylor MD Work Phone: [facility] Start: 12-24-2024 End: 12-24-2024 Office outpatient visit 25 minutes Claudia Taylor MD Work Phone: [facility] Comment on above: Stage 3b chronic kid gely disease (CMS-HCC) (Primary Dx) Start: 12-17-2024 End: 12-17-2024 ambulatory SURJIT Colbert [facility] Start: 12-16-2024 End: 12-16-2024 Telephone encounter Huong Sánchez CMA [facility] Start: 12-04-2024 End: 12-04-2024 [facility] Start: 12-01-2024 End: 12-01-2024 [facility] Start: 11-30-2024 End: 11-30-2024 [facility]ulatory [facility] Start: 11-30-2024 End: 12-03-2024 Evaluation and management of inpatient ANGELINE [facility] Start: 11-18-2024 End: 11-18-2024 Patient encounter procedure Codie Blancasey COMPRESSOR OPERATOR ADJUSTER-OPTICAL COATING TECHNICIAN Work Phone: [facility] Comment on above: Lymphedema (Primary Dx); Lymphorrhea; Pressure injury of right heel, unstageable ([facility]CC); Non-pressure ulcer of lower extremity with fat layer exposed, right ([facility]-HCC); Venous stasis ulcer of left lower leg with edema of left lower leg ([facility]) Start: 11-18-2024 End: 11-18-2024 ambulatory CODIE MARCH [facility] Start: 11-18-2024 End: 11-18-2024 ambulatory STEVEN MERCADO [facility] Start: 11-16-2024 End: 11-16-2024 Orders Only Durga Ramires [employer] PHN [facility] Comment on above: CKD (chronic kidney disease) stage 2, GFR 60-89 ml/min (Primary Dx) Start: 11-10-2024 End: 11-10-2024 Documentation procedure [facility] Start: 11-08-2024 End: 11-14-2024 Evaluation and management of inpatient Dylan Kirby DO Work Phone: [facility] Start: 10-23-2024 End: 10-27-2024 Evaluation and management of inpatient [facility] Start: 10-19-2024 End: 10-19-2024 ambulatory SURJIT Colbert [facility] Start: 10-14-2024 End: 10-14-2024 Telephone encounter Codie Rodrigues RN [facility] Comment on above: Care Navigation Start: 10-13-2024 End: 10-13-2024 Office outpatient new 20 minutes Codie Macrh COMPRESSOR OPERATOR ADJUSTER-OPTICAL COATING TECHNICIAN Work Phone: [facility] Comment on above: Lymphedema (Primary Dx); Lymphorrhea Start: 10-13-2024 End: 10-13-2024 ambulatory CODIE MARCH [facility] Start: 10-08-2024 End: 10-08-2024 ambulatory [facility] Start: 09-11-2024 End: 09-11-2024 Office outpatient visit 25 minutes Amado Montoya MD Work Phone: [facility] Comment on above: Essential hypertensi on (Primary Dx); Preop cardiovascular exam Start: 09-11-2024 End: 09-11-2024 Patient encounter status Amado Montoya MD Work Phone: [facility] [employer] [facility] Start: 09-11-2024 End: 09-11-2024 ambulatory AMADO MONTOYA [facility] Start: 09-11-2024 End: 09-11-2024 ambulatory [facility] Start: 09-11-2024 Encounter for other preprocedural examination [facility] Start: 09-10-2024 End: 09-10-2024 Telephone encounter Julianne Fuentes [facility] Start: 09-09-2024 End: 09-09-2024 Telephone encounter Zulema Moseley LPN [facility] Start: 09-07-2024 End: 09-07-2024 ambulatory [facility] Start: 09-07-2024 End: 09-07-2024 ambulatory [facility] Start: 09-07-2024 Encounter for other [facility]procedural examination [facility] Start: 09-02-2024 End: 09-02-2024 Emergency department patient visit [facility] Start: 08-30-2024 End: 08-30-2024 Emergency department patient visit CHAN Youngblood [facility] Start: 08-17-2024 End: 08-18-2024 Refill Pam Brothers APRN-OPTICAL COATING TECHNICIAN Work Phone: [facility] Start: 07-31-2024 End: 07-31-2024 Telephone encounter Zulema Moseley LPN [facility] Start: 07-08-2024 End: 07-08-2024 Office outpatient visit 25 minutes Will Enamorado MD Work Phone: [facility] Comment on above: Type 2 diabetes rubin itus with hyperglycemia, with long-term current use of insulin (CMS/HCC) (Primary Dx); Vitamin D deficiency; Insulin long-term use (CMS/HCC); Primary hypertension (CMS/HCC); Hyperlipemia, mixed (CMS/HCC); Encounter for dietary consultation; Acquired hypothyroidism (CMS/HCC); Class 3 severe obesity due to excess calories with serious comorbidity and body mass index (BMI) of 40.0 to 44.9 in adult (CMS/HCC); 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 Comment on above: Dermatophytosis of n ail (Primary Dx); Dystrophic nail; Type II diabetes mellitus with peripheral circulatory disorder (CMS/HCC); Diabetic polyneuropathy associated with type 2 diabetes mellitus (CMS/HCC); Encounter for long-term (current) use of insulin ([facility]) Start: 02-18-2024 End: 02-18-2024 ambulatory JACLYN POTTS Not Available Start: 02-18-2024 End: 02-18-2024 Bamboo flowsheet Jaclyn Potts DPM Work Phone: [facility] Start: 02-18-2024 End: 02-18-2024 Bamboo flowsheet Jaclyn Potts DPM Work Phone: [facility] Start: 02-14-2024 End: 02-14-2024 Office outpatient visit 25 minutes Pam Brothers COMPRESSOR OPERATOR ADJUSTER-OPTICAL COATING TECHNICIAN Work Phone: [facility] Comment on above: Stage 3b chronic kid gely disease ([facility]-HCC) (Primary Dx) Start: 02-07-2024 End: 02-07-2024 ambulatory PAM BROTHERS [facility] Start: 12-08-2023 End: 12-09-2023 Refill Pam Ann Oberpaoer COMPRESSOR OPERATOR ADJUSTER-OPTICAL COATING TECHNICIAN Work Phone: [facility] Start: 11-09-2023 End: 11-13-2023 Refill Pam R Oberneder COMPRESSOR OPERATOR ADJUSTER-OPTICAL COATING TECHNICIAN Work Phone: [facility] Start: 11-06-2023 End: 11-06-2023 Telephone encounter Kelly Erickson [facility] Start: 09-04-2023 Telephone encounter Hussain Verde [facility] Start: 09-02-2023 End: 09-02-2023 ambulatory JACLYN POTTS Not Available Start: 08-29-2023 Telephone encounter Apm Seth Oberneder COMPRESSOR OPERATOR ADJUSTER-OPTICAL COATING TECHNICIAN Work Phone: [facility] Start: 08-19-2023 End: 08-19-2023 ambulatory JACLYN POTTS Not Available Start: 07-24-2023 Bamboo flowsheet Jaclyn Carpio er DPM Work Phone: [facility] Start: 07-24-2023 Bamboo flowsheet Jaclyn Carpio er DPM Work Phone: [facility] Start: 07-24-2023 End: 07-24-2023 Office outpatient visit 15 minutes Jaclny Potts DPM Work Phone: [facility] Comment on above: Type 2 diabetes rubin itus with stage 1 decubitus ulcer of toe (CMS/HCC) (Primary Dx); Type II diabetes mellitus with peripheral circulatory disorder (CMS/HCC); Diabetic polyneuropathy associated with type 2 diabetes mellitus (CMS/HCC); Encounter for long-term (current) use of insulin (CMS/HCC) Start: 07-24-2023 End: 07-24-2023 ambulatory JACLYN POTTS Not Available Start: 09-10-[address] [facility] Facility : Start: 01-15-2022 Patient encounter status Bud Brothers COMPRESSOR OPERATOR ADJUSTER-OPTICAL COATING TECHNICIAN Work Phone: [facility] Start: 10-04-2021 End: 10-07-2021 [facility] Procedures Date Procedure Procedure Detail Performing Clinician Start: 01-29-2025 ALL BASIC METABOLIC PANEL Jose Rogers MD Work Phone: Start: 12-31-2024 NURSING COMMUNICATION A dewey Manzo COMPRESSOR OPERATOR ADJUSTER-OPTICAL COATING TECHNICIAN Work Phone: Start: 11-18-2024 Other immobilization , pressure, and attention to wound Codie Gomez [place] COMPRESSOR OPERATOR ADJUSTER-OPTICAL COATING TECHNICIAN Work Phone: Start: 11-14-2024 Comprehensive metabo lic panel Miguel Douglas COMPRESSOR OPERATOR ADJUSTER-OPTICAL COATING TECHNICIAN Work Phone: Start: 11-14-2024 EXTRA TUBES Steven Mercado MD Work Phone: Start: 11-14-2024 EXTRA TUBES BLUE TOP Anibal Mercado MD Work Phone: Start: 11-13-2024 BEDSIDE GLUCOSE Steven Mercado MD Work Phone: Start: 11-13-2024 BEDSIDE GLUCOSE Steven Mercado MD Work Phone: Start: 11-13-2024 Potassium serum plasma/whole blood Margot Leiva COMPRESSOR OPERATOR ADJUSTER-OPTICAL COATING TECHNICIAN Work Phone: Start: 11-13-2024 BEDSIDE GLUCOSE Steven Mercado MD Work Phone: Start: 11-13-2024 Comprehensive metabo lic panel Miguel Douglas COMPRESSOR OPERATOR ADJUSTER-OPTICAL COATING TECHNICIAN Work Phone: Start: 11-13-2024 EXTRA TUBES Steven Mercado MD Work Phone: Start: 11-13-2024 EXTRA TUBES BLUE TOP Anibal Mercado MD Work Phone: Start: 11-12-2024 BEDSIDE GLUCOSE Steven Mercado MD Work Phone: Start: 11-12-2024 Ecg routine ecg w/le ast 12 lds trcg only w/o i&r Steven Mercado MD Work Phone: Start: 11-12-2024 BEDSIDE GLUCOSE Steven Mercado MD Work Phone: Start: 11-12-2024 BEDSIDE GLUCOSE Steven Mercado MD Work Phone: Start: 11-12-2024 EXTRA TUBES Steven Mercado MD Work Phone: Start: 11-12-2024 EXTRA TUBES BLUE TOP Anibal Mercado MD Work Phone: Start: 11-12-2024 Comprehensive metabo lic panel Miguel Douglas COMPRESSOR OPERATOR ADJUSTER-OPTICAL COATING TECHNICIAN Work Phone: Start: 11-11-2024 BEDSIDE GLUCOSE Steven Mercado MD Work Phone: Start: 11-11-2024 BEDSIDE GLUCOSE Steven Mercado MD Work Phone: Start: 11-11-2024 Mri lower extrem oth /thn jt w/o contr matrl Margot Leiva COMPRESSOR OPERATOR ADJUSTER-OPTICAL COATING TECHNICIAN Work Phone: Start: 11-11-2024 BEDSIDE GLUCOSE Steven Mercado MD Work Phone: Start: 11-11-2024 C-reactive protein Miguel Douglas COMPRESSOR OPERATOR ADJUSTER-OPTICAL COATING TECHNICIAN Work Phone: Start: 11-11-2024 Comprehensive metabo lic panel Miguel Douglas COMPRESSOR OPERATOR ADJUSTER-OPTICAL COATING TECHNICIAN Work Phone: Start: 11-10-2024 End: 11-10-2024 Mri lower extrem oth/thn jt w/o contr matrl Margot Leiva COMPRESSOR OPERATOR ADJUSTER-OPTICAL COATING TECHNICIAN Work Phone: Start: 11-10-2024 Drug screen quantita tive vancomycin Margot Leiva COMPRESSOR OPERATOR ADJUSTER-OPTICAL COATING TECHNICIAN Work Phone: Start: 11-10-2024 Antihuman globulin d irect each antiserum Kimberly Perez MD Work Phone: Start: 11-10-2024 Cyanocobalamin vitamin b-12 Kimberly Perez MD Work Phone: Start: 11-10-2024 End: 11-10-2024 BEDSIDE GLUCOSE Steven Duff Work Phone: Start: 11-10-2024 EXTRA TUBES Steven Mercado MD Work Phone: Start: 11-10-2024 EXTRA TUBES BLUE TOP Ja maureen Mercado MD Work Phone: Start: 11-10-2024 C-reactive protein Miguel Douglas COMPRESSOR OPERATOR ADJUSTER-OPTICAL COATING TECHNICIAN Work Phone: Start: 11-10-2024 Comprehensive metabo lic panel Miguel Douglas COMPRESSOR OPERATOR ADJUSTER-OPTICAL COATING TECHNICIAN Work Phone: Start: 11-09-2024 BEDSIDE GLUCOSE Steven Mercado MD Work Phone: Start: 11-09-2024 BEDSIDE GLUCOSE Steven Mercado MD Work Phone: Start: 11-09-2024 Antibody identificat ion platelet antibodies Margot Leiva COMPRESSOR OPERATOR ADJUSTER-OPTICAL COATING TECHNICIAN Work Phone: Start: 11-09-2024 End: 11-09-2024 Cyanocobalamin vitamin b-12 Margot johnston COMPRESSOR OPERATOR ADJUSTER-OPTICAL COATING TECHNICIAN Work Phone: Start: 11-09-2024 BEDSIDE GLUCOSE Steven Mercado MD Work Phone: Start: 11-09-2024 Protein total xcpt refractometry urine Claudia Taylor MD Work Phone: Start: 11-09-2024 Urnls dip stick/tabl et reagent auto microscopy Claudia Taylor MD Work Phone: Start: 11-09-2024 EXTRA TUBES Zenobia Funez MD Work Phone: Start: 11-09-2024 EXTRA TUBES BLUE TOP Alvaro Funez MD Work Phone: Start: 11-09-2024 C-reactive protein Miguel Duff Stella COMPRESSOR OPERATOR ADJUSTER-OPTICAL COATING TECHNICIAN Work Phone: Start: 11-09-2024 End: 11-09-2024 Comprehensive metabolic panel Miguel Sherin Douglas COMPRESSOR OPERATOR ADJUSTER-OPTICAL COATING TECHNICIAN Work Phone: Start: 11-09-2024 Assay of lactate Miguel Douglas COMPRESSOR OPERATOR ADJUSTER-OPTICAL COATING TECHNICIAN Work Phone: Start: 11-08-2024 BEDSIDE GLUCOSE Zenobai Funez MD Work Phone: Start: 11-08-2024 EXTRA TUBES Zenobia Funez MD Work Phone: Start: 11-08-2024 EXTRA TUBES PST TOP Sigrid Funez MD Work Phone: Start: 11-08-2024 Assay of lactate Miguel Douglas COMPRESSOR OPERATOR ADJUSTER-OPTICAL COATING TECHNICIAN Work Phone: Start: 11-08-2024 BEDSIDE GLUCOSE Zenobia Funez MD Work Phone: Start: 11-08-2024 Potassium serum plasma/whole blood [facility] DO Work Phone: Start: 11-08-2024 End: 11-08-2024 Culture bacterial blood aerobic w/id isolates [facility] DO Work Phone: Start: 11-08-2024 End: 11-08-2024 Radex foot complete minimum 3 views [facility] DO Work Phone: Start: 11-08-2024 EXTRA TUBES [facility] DO Work Phone: Start: 11-08-2024 EXTRA TUBES BLUE TOP Da vid Stow DO Work Phone: Start: 11-08-2024 C-reactive protein Franki d Stow DO Work Phone: Start: 11-08-2024 End: 11-08-2024 Comprehensive metabolic panel Dylan Kirby DO Work Phone: Plan of Treatment Date Care Activity Detail Author Start: 01-15-2026 Tobacco Screening Tobacco Screening [facility] Start: 12-24-2025 Tobacco Screening Tobacco Screening [facility] Start: 12-01-2025 Tobacco Screening Tobacco Screening [facility] Start: 11-18-2025 Tobacco Screening Tobacco Screening [facility] Start: 11-10-2025 Tobacco Screening Tobacco Screening [facility] Start: 10-13-2025 Tobacco Screening Tobacco Screening [facility] Start: 09-07-2025 Tobacco Screening Tobacco Screening [facility] Start: 04-21-2025 End: 12-19-2025 Basic metabolic 2000 panel - Serum or Plasma Basic Metabolic Panel Lab Routine Stage 3b chronic kidney disease ([facility]) Expected: 04/21/2025, Expires: 12/19/2025 [facility] Work Phone: Comment on above: Expected: 04/21/2025, Expires: Start: 04-21-2025 End: 12-19-2025 CBC panel - Blood by Automated count CBC without diff Lab Routine Stage 3b chronic kidney disease ([facility]) Expected: 04/21/2025, Expires: 12/19/2025 [facility] Comment on above: Expected: 04/21/2025, Expires: Start: 04-21-2025 End: 12-19-2025 Magnesium [Mass/volume] in Serum or Plasma Magnesium Lab Routine Stage 3b chronic kidney disease ([facility]) Expected: 04/21/2025, Expires: 12/19/2025 [facility] Comment on above: Expected: 04/21/2025, Expires: Start: 04-21-2025 End: 12-19-2025 Parathyroid Hormone, intact Parathyroid Hormone, intact Lab Routine Stage 3b chronic kidney disease ([facility]) Expected: 04/21/2025, Expires: 12/19/2025 [facility] Comment on above: Expected: 04/21/2025, Expires: Start: 04-21-2025 End: 12-19-2025 Phosphate [Mass/volume] in Serum or Plasma Phosphorus Lab Routine Stage 3b chronic kidney disease ([facility]) Expected: 04/21/2025, Expires: 12/19/2025 [facility] Comment on above: Expected: 04/21/2025, Expires: Start: 04-21-2025 End: 12-19-2025 Protein creat ratio Protein creat ratio Lab Routine Stage 3b chronic kidney disease ([facility]) Expected: 04/21/2025, Expires: 12/19/2025 [facility] Comment on above: Expected: 04/21/2025, Expires: Start: 04-21-2025 End: 12-19-2025 Vitamin D 25 hydroxy Vitamin D 25 hydroxy Lab Routine Stage 3b chronic kidney disease ([facility] Expected: 04/21/2025, Expires: 12/19/2025 [facility] Comment on above: Expected: 04/21/2025, Expires: Start: 02-15-2025 Influenza vaccination [facility] Start: 02-13-2025 Adult BMI Screening Adult BMI Screening [facility] Start: 01-27-2025 End: 01-27-2025 Patient encounter procedure 01/27/2025 9:00 AM EDT Office Visit [facility] [address] [place] [address] [place] [address] Mena Bender I, PA [address] [place] [address] [facility] Start: 01-07-2025 End: 01-07-2025 Patient encounter procedure 01/07/2025 2:40 PM EDT Office Visit [facility] [address] [facility] [address] [phone] Codie March, COMPRESSOR OPERATOR ADJUSTER-OPTICAL COATING TECHNICIAN [address] [place] [address] Vianca Winslow, COMPRESSOR OPERATOR ADJUSTER-OPTICAL COATING TECHNICIAN [address] [facility], [address] [place] [address] [facility] Start: 01-05-2025 End: 01-05-2025 Patient encounter procedure 01/05/2025 2:00 PM EDT Office Visit [facility] [address] [place] [phone] Mena Bender PA [address] [place] [address] [facility] Start: 12-31-2024 End: 12-31-2024 Patient encounter procedure 12/31/2024 1:20 PM EDT Office Visit [facility] [address] [place] [address] Codie March, COMPRESSOR OPERATOR ADJUSTER-OPTICAL COATING TECHNICIAN [address] [place] [address] Freddy Manzo, COMPRESSOR OPERATOR ADJUSTER-OPTICAL COATING TECHNICIAN [address] [place] [address] [facility] Start: 12-24-2024 End: 12-24-2024 Patient encounter procedure 12/24/2024 11:00 AM EDT Office Visit [facility] [address] [place] [phone] Claudia Taylor MD [address] [place], [place] [phone] [facility] Start: 12-21-2024 End: 12-21-2024 Patient encounter procedure 12/21/2024 8:40 AM EDT Office Visit [facility] [address] [place] [address] Codie March, COMPRESSOR OPERATOR ADJUSTER-OPTICAL COATING TECHNICIAN [address] [place] [address] Freddy Manzo, COMPRESSOR OPERATOR ADJUSTER-OPTICAL COATING TECHNICIAN [address] [place] [address] [facility] Start: 12-16-2024 End: 12-16-2024 Patient encounter procedure 12/16/2024 1:20 PM EDT Office Visit [facility] [address] [place] [phone] Codie March, COMPRESSOR OPERATOR ADJUSTER-OPTICAL COATING TECHNICIAN [address] [place] [address] [facility] Start: 12-09-2024 End: 12-09-2024 Patient encounter procedure 12/09/2024 2:15 PM EDT Office Visit [facility] [address] [place] [phone] Mena Bender I, HERMELINDA [facility] [place] [address] [facility] Start: 11-20-2024 End: 11-13-2025 Comprehensive metabolic 2000 panel - Serum or Plasma [facility] Start: 11-20-2024 End: 05-16-2025 Magnesium [Mass/volume] in Serum or Plasma [facility] Start: 11-18-2024 End: 11-18-2024 Patient encounter procedure 11/18/2024 1:20 PM EDT Office Visit [facility] [address] [place] [phone] Codie March, COMPRESSOR OPERATOR ADJUSTER-OPTICAL COATING TECHNICIAN [address] [place] [address] [facility] Start: 11-13-2024 End: 11-13-2024 Patient encounter procedure 11/13/2024 10:00 AM EDT Office Visit [facility] [address] [facility] [place] [address] Codie March, COMPRESSOR OPERATOR ADJUSTER-OPTICAL COATING TECHNICIAN [address] [place] [address] [facility] Start: 11-05-2024 End: 11-05-2024 Patient encounter procedure 11/05/2024 4:00 PM EDT Office Visit [facility] [address] [place] [phone] Claudia Taylor MD [address] [place] [address] [facility] Start: 10-23-2024 End: 10-23-2024 Patient encounter procedure 10/23/2024 3:00 PM EDT Office Visit [facility] [address] [place] [address] Codie March, COMPRESSOR OPERATOR ADJUSTER-OPTICAL COATING TECHNICIAN [address] [place] [address] [facility] Start: 09-11-2024 End: 09-11-2024 Patient encounter procedure [facility] Start: 06-23-2024 End: 06-23-2024 Patient encounter procedure 06/23/2024 3:30 PM EST Procedure Visit [facility] [address] [place] [address] Jaclyn Potts DPM [address] [place] [address] [facility] Start: 06-13-2024 Tobacco Screening Tobacco Screening [facility] Start: 02-18-2024 End: 02-18-2024 Patient encounter procedure 02/18/2024 3:30 PM EDT Procedure Visit [facility] [address] [place] [phone] Jaclyn Potts, DPRylie [address] [facility] [place] [address] [facility] Comment on above: Arrived Start: 02-16-2024 COVID-19 Vaccine ( season) COVID-19 Vaccine () [facility] Start: 02-16-2024 COVID-19 Vaccine () COVID-19 Vaccine () [facility] Start: 02-16-2024 Influenza vaccination [facility] Start: 02-10-2024 End: 02-10-2024 Patient encounter procedure 02/10/2024 3:00 PM EDT Office Visit [facility] [address] [phone] Pam Brothers, COMPRESSOR OPERATOR ADJUSTER-OPTICAL COATING TECHNICIAN [facility], [address] [place] [address] [facility] Start: 11-07-2023 End: 11-07-2023 Patient encounter procedure 11/07/2023 1:40 PM EDT Office Visit [facility] [place] [address] [phone] Pam Brothers COMPRESSOR OPERATOR ADJUSTER-OPTICAL COATING TECHNICIAN [address] [facility], [address] [place] [address] [facility] Start: 11-06-2023 Adult BMI Screening Adult BMI Screening [facility] Start: 09-15-2023 Adult BMI Follow Up Plan Adult BMI Follow Up Plan [facility] Start: 09-09-2023 End: 09-09-2023 Patient encounter procedure 09/09/2023 3:20 PM EDT Office Visit [facility] [address] [phone] Pam Brothers, COMPRESSOR OPERATOR ADJUSTER-OPTICAL COATING TECHNICIAN [address] [facility], [address] [place] [address] [facility] Start: 09-02-2023 End: 09-02-2023 Patient encounter procedure 09/02/2023 3:45 PM EDT Procedure Visit [facility] [address] [place] [phone] Jaclyn Potts DPM [address] [place] [address] [facility] Start: 08-14-2023 End: 08-14-2023 Patient encounter procedure 08/14/2023 3:30 PM EST Office Visit [facility] [address] [place] [phone] Jaclyn Potts DPM [address] [place] [address] [facility] Start: 08-05-2023 End: 08-05-2023 Patient encounter procedure 08/05/2023 2:30 PM EST Office Visit [facility] [address] [place] [phone] Jaclyn Potts DPM [address] [place] [address] [facility] Start: 07-24-2023 End: 07-24-2023 Patient encounter procedure 07/24/2023 10:30 AM EST Office Visit [facility] [address] [facility] [place] [phone] Jaclyn Potts, DPM [address] [place], [place] [phone] Arrived [facility] Comment on above: Arrived Start: 02-15-2023 COVID-19 Vaccine ( season) COVID-19 Vaccine ( season) [facility] Start: 02-15-2023 COVID-19 Vaccine ( season) COVID-19 Vaccine ( season) [facility] Start: 02-15-2023 Influenza vaccination Influenza Vaccine [facility] Start: 07-14-2013 Pneumococcal Vaccine: 65+ Years (2 - PCV) Pneumococcal Vaccine: 65+ Years (2 - PCV) [facility] Start: 07-14-2013 Pneumococcal Vaccine: 65+ Years (2 of 2 - PCV) Pneumococcal Vaccine: 65+ Years (2 of 2 - PCV) [facility] Start: 2005 Fall Risk Screening Fall Risk Screening [facility] Start: 1990 Administration of varicella zoster vaccine Zoster (Shingles) Vaccine (1 of 2) [facility] Start: 12-03-1959 DTaP,Tdap and Td Vaccines (1 - Tdap) DTaP,Tdap and Td Vaccines (1 - Tdap) [facility] Start: 1952 Depression Screening Depression Screening [facility] Start: 1940 Medicare Annual Wellness Visit Medicare Annual Wellness Visit [facility] End: 02-13-2025 Basic metabolic 2000 panel - Serum or Plasma Basic Metabolic Panel Lab Routine Stage 3b chronic kidney disease (CMS-HCC) 1 Occurrences starting 02/14/2024 until 02/13/2025 [facility] Comment on above: 1 Occurrences starting 02/14/2024 until 02/13/2025 End: 11-30-2024 Basic metabolic 2000 panel - Serum or Plasma [facility] Work Phone: End: 11-16-2025 Basic metabolic 2000 panel - Serum or Plasma Basic Metabolic Panel Lab Routine CKD (chronic kidney disease) stage 2, GFR 60-89 ml/min 1 Occurrences starting 11/16/2024 until 11/16/2025 [facility] Work Phone: Comment on above: 1 Occurrences starting 11/16/2024 until 11/16/2025 Bedside Glucose *Lee ce/Obtain serum glucose if >500 per glucometer. [facility] Work Phone: End: 02-13-2025 CBC panel - Blood by Automated count CBC without diff Lab Routine Stage 3b chronic kidney disease ([facility]) 1 Occurrences starting 02/14/2024 until 02/13/2025 [facility] Work Phone: Comment on above: 1 Occurrences starting 02/14/2024 until 02/13/2025 End: 11-13-2025 CBC panel - Blood by Automated count [facility] End: 11-16-2025 CBC panel - Blood by Automated count CBC without diff Lab Routine CKD (chronic kidney disease) stage 2, GFR 60-89 ml/min 1 Occurrences starting 11/16/2024 until 11/16/2025 [facility] Comment on above: 1 Occurrences starting 11/16/2024 until 11/16/2025 CBC W Auto Different ial panel - Blood [facility] End: 11-30-2024 CBC W Auto Differential panel - Blood [facility] End: 11-12-2024 Clinical Pathology [facility] Comprehensive metabo lic 1999 panel - Serum or Plasma [facility] End: 11-13-2025 Comprehensive metabolic 2000 panel - Serum or Plasma [facility] End: 11-11-2024 Immunoelectrophoresis for Therapy Monitoring [facility] Work Phone: Immunoelectrophoresi s for Therapy Monitoring [facility] End: 02-13-2025 Magnesium [Mass/volume] in Serum or Plasma Magnesium Lab Routine Stage 3b chronic kidney disease ([facility]) 1 Occurrences starting 02/14/2024 until 02/13/2025 [facility] Comment on above: 1 Occurrences starting 02/14/2024 until 02/13/2025 Magnesium [Mass/volu me] in Serum or Plasma [facility] End: 11-30-2024 Magnesium [Mass/volume] in Serum or Plasma [facility] End: 11-16-2025 Magnesium [Mass/volume] in Serum or Plasma Magnesium Lab Routine CKD (chronic kidney disease) stage 2, GFR 60-89 ml/min 1 Occurrences starting 11/16/2024 until 11/16/2025 [facility] Comment on above: 1 Occurrences starting 11/16/2024 until 11/16/2025 End: 11-09-2024 MR Foot - left WO and W contrast IV [employer] Work Phone: End: 11-10-2024 Occult blood x 1, stool [facility] Optx dstl radl x-art ic fx/epiphysl sep OPEN REDUCTION INTERNAL FIXATION RADIUS DISTAL Colles' fracture of right radius [facility] Oxygen Therapy - Ana ntain SpO2: 90%; *[facility] Guidelines for O2: Yes; Document: \[email or web address]\[email or web address]\EPI C_Reference\Orders\Respirator y Care Guidelines\CPG Oxygen 2022.pdf [facility] End: 02-13-2025 Parathyroid Hormone, intact Parathyroid Hormone, intact Lab Routine Stage 3b chronic kidney disease ([facility]) 1 Occurrences starting 02/14/2024 until 02/13/2025 [facility] Comment on above: 1 Occurrences starting 02/14/2024 until 02/13/2025 End: 11-16-2025 Parathyroid Hormone, intact Parathyroid Hormone, intact Lab Routine CKD (chronic kidney disease) stage 2, GFR 60-89 ml/min 1 Occurrences starting 11/16/2024 until 11/16/2025 [facility] Comment on above: 1 Occurrences starting 11/16/2024 until 11/16/2025 End: 02-13-2025 Phosphate [Mass/volume] in Serum or Plasma Phosphorus Lab Routine Stage 3b chronic kidney disease ([facility]) 1 Occurrences starting 02/14/2024 until 02/13/2025 [facility] Comment on above: 1 Occurrences starting 02/14/2024 until 02/13/2025 End: 11-30-2024 Phosphate [Mass/volume] in Serum or Plasma [facility] End: 11-16-2025 Phosphate [Mass/volume] in Serum or Plasma Phosphorus Lab Routine CKD (chronic kidney disease) stage 2, GFR 60-89 ml/min 1 Occurrences starting 11/16/2024 until 11/16/2025 [facility] Comment on above: 1 Occurrences starting 11/16/2024 until 11/16/2025 End: 02-13-2025 Protein creat ratio Protein creat ratio Lab Routine Stage 3b chronic kidney disease ([facility]) 1 Occurrences starting 02/14/2024 until 02/13/2025 [facility] Comment on above: 1 Occurrences starting 02/14/2024 until 02/13/2025 End: 11-16-2025 Protein creat ratio Protein creat ratio Lab Routine CKD (chronic kidney disease) stage 2, GFR 60-89 ml/min 1 Occurrences starting 11/16/2024 until 11/16/2025 [facility] Comment on above: 1 Occurrences starting 11/16/2024 until 11/16/2025 End: 11-11-2024 Protein electrophoresis, serum [employer] Protein electrophore sis, serum [facility] End: 02-13-2025 Urinalysis Urinalysis Lab Routine Stage 3b chronic kidney disease ([facility]) 1 Occurrences starting 02/14/2024 until 02/13/2025 [facility] Comment on above: 1 Occurrences starting 02/14/2024 until 02/13/2025 End: 11-16-2025 Urinalysis Urinalysis Lab Routine CKD (chronic kidney disease) stage 2, GFR 60-89 ml/min 1 Occurrences starting 11/16/2024 until 11/16/2025 [facility] Comment on above: 1 Occurrences starting 11/16/2024 until 11/16/2025 End: 12-19-2025 Urinalysis Urinalysis Lab Routine Stage 3b chronic kidney disease ([facility]) 1 Occurrences starting 12/24/2024 until 12/19/2025 [facility] Comment on above: 1 Occurrences starting 12/24/2024 until 12/19/2025 End: 02-13-2025 Vitamin D 25 hydroxy Vitamin D 25 hydroxy Lab Routine Stage 3b chronic kidney disease ([facility]) 1 Occurrences starting 02/14/2024 until 02/13/2025 [facility] Comment on above: 1 Occurrences starting 02/14/2024 until 02/13/2025 Immunizations Immunization Date Immunization Notes Care Provider Harjinder johnson 08-26-2024 influenza virus vacc ine, unspecified formulation Coide March COMPRESSOR OPERATOR ADJUSTER-OPTICAL COATING TECHNICIAN Work Phone: [facility] 06-24-2023 Influenza, injectabl e, Madin Wapella Canine Kidney, preservative free, quadrivalent Jaclyn Rusher DPM Work Phone: [facility] 06-24-2023 influenza virus vacc ine, unspecified formulation Kellyvickie Erickson [facility] 05-17-2022 influenza, injectabl e, quadrivalent, preservative free Jaclyn Rusher DPM Work Phone: [facility] 08-10-2021 influenza, injectabl e, quadrivalent, preservative free Jaclyn Rusher DPM Work Phone: [facility] 09-09-2020 COVID-19, mRNA, LNP- S, PF, 100mcg/0.5mL Dose Pam Oberneder COMPRESSOR OPERATOR ADJUSTER-OPTICAL COATING TECHNICIAN Work Phone: [facility] 08-12-2020 COVID-19, mRNA, LNP- S, PF, 100mcg/0.5mL Dose Pam Oberneder COMPRESSOR OPERATOR ADJUSTER-OPTICAL COATING TECHNICIAN Work Phone: [facility] 04-26-2020 Influenza, injectabl e, Madin Wapella Canine Kidney, preservative free, quadrivalent Jaclyn Rusher DPM Work Phone: [facility] 04-26-2020 influenza virus vacc ine, unspecified formulation Pam Oberneder COMPRESSOR OPERATOR ADJUSTER-OPTICAL COATING TECHNICIAN Work Phone: [facility] 04-29-2018 Influenza, injectabl e, Madin Hetal Canine Kidney, preservative free, quadrivalent Jaclyn Rusher DPM Work Phone: [facility] 07-14-2012 pneumococcal polysaccharide vaccine, 23 valent Jaclyn Potts DPM Work Phone: [facility] 12-19-2011 pneumococcal polysaccharide vaccine, 23 valent Jaclyn Potts DPM Work Phone: [facility] Payers Date Payer Category Payer Self-pay 2016 [facility] BCBS [id number] 2016 [facility] ld Indemnity [id number] 2016 Unknown [id number]. [id number] 2016 Unknown [id number] 2005 Medicare [id number]. [id number] 2005 Medicare [id number] 1959 Medicare [id number] 1940 Unknown [id number] 2.16.840.1.479057.3.579. 2.593 1940 Unknown [id number] 2.16.840.1.452211.3.579. 2.1259 1940 Unknown [id number] 2.16.840.1.253725.3.579. 2.1259 1940 Unknown [id number] 2.16.840.1.960320.3.579. 2.1259 1940 Unknown [id number] 2.16.840.1.146666.3.579. 2.1259 1940 Unknown [id number] 2.16.840.1.014522.3.579. 2.1259 1940 Unknown [id number] 2.16.840.1.521158.3.579. 2.128 1940 Unknown [id number] 2.16.840.1.112075.3.579. 2.128 1940 Unknown [id number] 2.16840.1.522765.3.579. 2.1285 1940 Unknown [id number] 2.840.1.209611.3.579. 2.1285 1940 Unknown [id number] 2.840.1.330730.3.579. 2.1285 1940 Unknown [id number] 2.840.1.113078.3.579. 2.1285 1940 Unknown [id number] 2.840.1.210630.3.579. 2.1285 1940 Unknown [id number] 2.840.1.163895.3.579. 2.1285 1940 Unknown [id number] 2.840.1.787109.3.579. 2.1285 1940 Unknown [id number] 2.16840.1.879558.3.579. 2.128 1940 Unknown [id number] 2.16840.1.642458.3.579. 2.128 1940 Unknown [id number] 2.16840.1.937245.3.579. 2.1285 1940 Unknown [id number] 2.16840.1.569532.3.579. 2.1286 1940 Unknown [id number] 2.16.840.1.173480.3.579. 2.1286 1940 Unknown [id number] 2.16.840.1.424012.3.579. 2.1286 1940 Unknown [id number] 2.16.840.1.350512.3.579. 2.1286 1940 Unknown [id number] 2.16.840.1.856995.3.579. 2.1286 1940 Unknown [id number] 2.16.840.1.362871.3.579. 2.1286 1940 Unknown [id number] 2.16.840.1.715269.3.579. 2.1286 1940 Unknown [id number] 2.16.840.1.797075.3.579. 2.1286 1940 Unknown [id number] 2.16.840.1.352505.3.579. 2.1286 1940 Unknown [id number] 2.16.840.1.347977.3.579. 2.1286 Unknown [id number] 2.16.840.1.805156.3.579. 2.531 Social History Date Type Detail Facility Start: 04-17-2022 End: 05-27-2023 Tobacco smoking status WAIS Ex-smoker [facility] History of tobacco use Current smoker [facility] History of tobacco use Cigarette Smoker [facility] Start: 04-17-2022 End: 05-27-2023 Tobacco use and exposure Smokeless tobacco non-user [facility] Start: 07-05-2023 End: 06-08-2024 Alcohol intake Lifetime non-drinker (finding) [facility] Start: 07-05-2023 End: 02-18-2024 History of Social function [facility] Start: 07-05-2023 End: 02-18-2024 Tobacco use panel [facility] Start: 1940 Sex Assigned At Not on file [facility] How often to you hav e a drink containing alcohol? Never [facility] [employer] [facility] Average Number of Drinks Not on file [facility] [employer] [facility] Start: 01-20-2015 Sex Female (finding) [facility] Has the electric, [employer] s, oil, or water company threatened to shut off services in your home in past 12Mo No [facility] [employer] [facility] Medical Equipment Procedure Code Equipment Code Equipment Origin al Text Equipment Identifier Dates [id number], [id number] Start: 06-02-2024 Goals Date Patient Goal Desired Activity /State Personal health goal Comment on above: Formatting of this n ote might be different from the original. Evaluation of progress towards goal: feeling better than at admission Functional Status Date Assessment Result Facility 11-08-2024 Humiliation, Afraid, Rape, and Kick questionnaire [HARK] [facility] Clinical Notes 07-24-2023 to 01-18-2025 Jaclyn Potts DPM - 01/18/2025 5:44 PM EDTTelephone Encounter - Geeta Bhatia - 01/04/2025 3:30 PM EDTTelephone Encounter - Geeta Bhatia - 01/04/2025 3:30 PM EDTPatient InstructionsAttachments Note Date & Type Note Facility 01-18-2025 History of Present illness Narrative Podiatric consultation. Patient is seen at bedside for assessment of multiple decubitus wounds; primarily those involving both heels. Patient is somewhat of a poor historian; but suspects that the wounds have been present for at least 3 months or longer; having received wound care measures well at [facility]. The lesions are symptomatic describing pressure discomfort, particularly on the right. Patient admitted through ED on 01/14/2025 with soft tissue infection involving sacral wounds as well. Progress to date is favorable with initial wound care measures and IV antibiotic therapy. Clinical exam: Patient is alert and oriented. Pleasant disposition. Vascular status: Appears grossly intact. Notable swelling of the lower extremities and ankles. Several superficial stasis wounds are noted on the anterior - medial surface of the right lower extremity. Right heel: Large decubitus wound is located plantarly. Thick, well adhered dark eschar base; with marginal fibrotic, hyperkeratotic and exfoliative slough. Tender to direct pressure. No drainage or soft tissue fluctuance is noted. The wound margins soft tissue envelope appears well-perfused. Wound measurements: 5.0 x 4.6 x 0.3 cm estimated depth. Right heel: Similar appearing wound noted on the posterior surface colon measuring 2.6 x 1.5 x 0.3 cm estimated depth. Wound margin soft tissue envelope appears well-perfused. Left heel: Similar appearing wound located on the posterior heel: measuring 4.0 x 3.7 x 0.3 cm estimated depth. Thick, well adhered eschar base with marginal fibrosis, hyperkeratosis and exfoliative slough. No drainage is noted. Marginal soft tissue envelope well-perfused. All demonstrate wound margin erythema, consistent with skin and soft tissue infection; without streaking. Right great toe: Dry, Partial-thickness wound on the distal tuft, without drainage; with well adhered, dry eschar base. Imaging: Radiographs and MRI studies reviewed: Unremarkable for osteomyelitis. Impression: Multiple full-thickness decubitus wounds as described. Well adhered thick eschar base. IDDM Diabetic peripheral vasculopathy /PAD. Diabetic peripheral neuropathy. Skin and soft tissue infection associated with multiple wounds. Multiple medical comorbidities. Care plan: Initiate collagenase dressings daily followed by Xeroform non-adherent. Offloading: Waffle AFO boots. Procedure: Aseptic technique: # 15 scalpel: Cross hatching of eschar base of all wounds; with sharp excisional debridement of marginal, dystrophic, devitalized, non- viable fibrotic and keratotic tissue; reducing wound bioburden. Anticipate discharge to SNF. Continue same daily wound care and offloading measures. Thank you for allowing me to participate in the care of this patient. documented in this encounter [facility] 01-04-2025 Miscellaneous Notes PT IS IN WHEELCHAIR AND NOT ABLE TO COME TO APT HAD TO RESCHEDULE documented in this encounter [facility] 01-04-2025 Telephone encounter Note PT IS IN WHEELCHAIR AND NOT ABLE TO COME TO APT HAD TO RESCHEDULE [facility] 12-31-2024 History of Present illness Narrative Images from the original note were not included. Wound Care Progress Note Patient: Rupa Gutierrez Date of : 1940 Chief Complaint: Bilateral leg swelling with ulcerations, follow up SUBJECTIVE/HPI: Rupa is a 84 y.o. female who presents to [facility] for evaluation of 4 ulcerations on the bilateral lower extremities. Patient established with wound clinic on 10/13/2024. Current wound care includes: per nursing facility paperwork they are using betadine for some wounds and santyl for some wounds it is unclear which. Patient reports she sleeps in a chair. Patient recently hospitalized 11/08/2024 through 11/13/2024 for pressure ulcer right heel and potential sepsis. Treated with vancomycin, rocephin, cefepime, Patient had been undergoing antibiotic treatment for bilateral lower leg cellulitis. Patient again hospitalized 11/30-12/03 for acute kidney injury. At that time she was treated with 5 days of Augmentin for possible cellulitis. She has now returned to nursing facility. Patient reports she has had chronic leg swelling for the last 2-3 years. Currently patient is in a nursing rehabilitation facility. Patient reports it is difficult to leave her home as she cannot pivot from chair to wheelchair. She requires the assistance of the local fire department to get her into her car. Patient unable to get out of the wheelchair for wound care assessment. Patient was given a erin lift sling for next appointment use. Instructed to put the sling on the wheelchair before getting into the wheelchair. Measurable wound changes: wounds 1, 2 and 4 are smaller Patient accompanied by: Daughter, patient arrives in wheelchair Nutritional screen shows patient does take in three servings of protein per day. Patient does deny fever, chills, sweats, or other signs of infection. Prescribed antibiotics: completed augmentin on 12/07 Today's reported Blood Sugar:patient unsure Lab Results Component Value Date HGBA1C 7.9 (H) 11/30/2024 HGBA1C 10.1 (H) 04/26/2021 Tobacco use: former smoker Contributing comorbid conditions: BMI 43.6, recent close fracture of right wrist. Labs/Imaging/Cardiovascular: Patient's chart was reviewed for all available supporting documentation, laboratory results and radiographic examination. Patient Active Problem List Diagnosis Abdominal pain Calculus of ureter BMI 45.0-49.9, [place] Morbid obesity [place] Mild tricuspid regurgitation Pulmonary hypertension [place] Essential hypertension Preop cardiovascular exam Lymphedema Diabetes mellitus type I [facility] [place] [place]ulitis of lower extremity, unspecified laterality Hyperkalemia Hypothyroidism PVD (peripheral vascular disease) Hyponatremia Pressure injury of right heel, unstageable [place] [place] Venous stasis ulcer of left calf with fat layer exposed with varicose veins [place] [place] Acute kidney injury superimposed on CKD Class 3 severe obesity due to excess calories with body mass index (BMI) of 40.0 to 44.9 in adult [place] [place] Chronic diastolic congestive heart failure [place] [place] Pressure ulcer of right buttock, stage 2 [place] [place] Indwelling Nj catheter present Iron deficiency anemia Stage 3b chronic kidney disease [place] [place] 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 [place] [place] Past Medical History: Diagnosis Date Anxiety C. difficile diarrhea CHF (congestive heart failure) [place] [place] disease Diabetes mellitus type I [place] [place] Hypertension Hypothyroid Insomnia Kidney stone stage 3 Neuropathy Obesity Osteoarthritis Paroxysmal supraventricular tachycardia Peripheral neuropathy Plantar fasciitis Pulmonary HTN [place] [place] PVD (peripheral vascular disease) Visual impairment White coat syndrome with diagnosis of hypertension Past Surgical History: Procedure Laterality Date APPENDECTOMY 1951 SECTION x2 DILATION AND CURETTAGE OF UTERUS DISCECTOMY EYE SURGERY NECK SURGERY TONSILLECTOMY Current Outpatient Medications Medication Sig Dispense Refill acetaminophen-codeine (TYLENOL #3) 300-30 mg per tablet Take 1 tablet by mouth daily as needed. collagenase (SANTYL) ointment Apply 1 Application topically daily. Apply to right calf and ankle wounds. cyanocobalamin 1000 MCG tablet Take 1 tablet (1,000 mcg total) by mouth in the morning. ferrous sulfate 325 (65 FE) MG tablet Take 1 tablet (325 mg total) by mouth daily with breakfast. furosemide (LASIX) 20 mg tablet Take 2 tablets (40 mg total) by mouth daily with breakfast AND 1 tablet (20 mg total) Daily before evening meal. 40 mg in am and 20 mg in pm. 90 tablet 6 insulin aspart U-100 (NovoLOG) 100 unit/mL injection Inject under the skin in the morning and at noon and in the evening. Inject before meals. As directed per sliding scale. insulin glargine (LANTUS) 100 unit/mL injection Inject 0.6 mL (60 Units total) under the skin in the morning. levothyroxine (SYNTHROID, LEVOTHROID) 25 MCG tablet Take 2 tablets (50 mcg total) by mouth nightly. LORazepam (ATIVAN) 0.5 mg tablet Take 1 tablet (0.5 mg total) by mouth every 12 (twelve) hours as needed for anxiety Indications: anxious. magnesium oxide (MAGOX) 400 mg tablet Take 1 tablet (400 mg total) by mouth in the morning. 90 tablet 3 polyethylene glycol (GLYCOLAX) 17 gram packet Take 17 g by mouth in the morning. povidone-iodine (BETADINE) 10 % external solution Apply 1 Application topically daily. Apply daily and as needed to bilateral heel and toe wounds spironolactone (ALDACTONE) 25 mg tablet Take 1 tablet (25 mg total) by mouth in the morning. tamsulosin (FLOMAX) 0.4 mg capsule Take 1 capsule (0.4 mg total) by mouth nightly. traZODone (DESYREL) 50 mg tablet Take 1 tablet (50 mg total) by mouth nightly. naloxone (NARCAN) 4 mg/actuation spray,non-aerosol nasal spray Administer 1 spray (4 mg total) into alternating nostrils as needed for opioid reversal. (Patient not taking: Reported on 12/31/2024) pantoprazole (PROTONIX) 40 mg EC tablet Take 1 tablet (40 mg total) by mouth in the morning. (Patient not taking: Reported on 12/31/2024) pregabalin (LYRICA) 25 mg capsule Take 1 capsule (25 mg total) by mouth in the morning and 1 capsule (25 mg total) before bedtime. (Patient not taking: Reported on 12/31/2024) sodium chloride 0.9 % injection Infuse 10 mL into a venous catheter every 12 (twelve) hours. (Patient not taking: Reported on 12/31/2024) sodium chloride 0.9 % injection Infuse 10 mL into a venous catheter as needed for line care. (Patient not taking: Reported on 12/31/2024) No current facility-administered medications for this visit. Allergies Allergen Reactions Capsaicin Other (See Comments) Lisinopril Cough Ropinirole Other (See Comments) Diatrizoate Meglumine Rash Iodine Rash Levofloxacin In D5w Rash Propoxyphene Rash The following portions of the patient's history were reviewed and updated as appropriate: allergies, current medications, past family history, past medical history, past social history, past surgical history, problem list, and medication reconciliation was completed including current medication and post discharge medication. Pain Scale:denies Pain Scale 0/10: 10 Review of Systems Constitutional: Positive for appetite change (normally poor appetite). Negative for activity change, chills, diaphoresis and fever. Eyes: Positive for visual disturbance (baseline). Respiratory: Positive for shortness of breath (baseline). Negative for cough, choking and wheezing. Cardiovascular: Positive for leg swelling (baseline). Negative for chest pain and palpitations. Gastrointestinal: Negative for abdominal distention, nausea and vomiting. Genitourinary: Negative for decreased urine volume and hematuria. Musculoskeletal: Positive for back pain and gait problem. Skin: Positive for wound. Negative for color change. Neurological: Negative for syncope, numbness and headaches. Objective: Vitals: 12/31/24 1500 BP: 147/79 Pulse: 90 Resp: 18 Temp: 36.4 C (97.5 F) Physical Exam Vitals reviewed. Constitutional: General: She is not in acute distress. Appearance: She is well-developed. She is not diaphoretic. Cardiovascular: Rate and Rhythm: Normal rate. Comments: Bilateral doppler signals weak, difficult to locate due to body habitus Bilateral lower extremity non compressible edema, feet relatively spared, weeping serous fluid + stemmers sign bilateral Pulmonary: Effort: Pulmonary effort is normal. No respiratory distress. Musculoskeletal: Right lower leg: Edema present. Left lower leg: Edema present. Skin: General: Skin is warm and dry. Capillary Refill: Capillary refill takes less than 2 seconds. Findings: Wound present. No erythema or rash. Neurological: Mental Status: She is alert and oriented to person, place, and time. Psychiatric: Mood and Affect: Mood normal. Behavior: Behavior normal. Wound Assessment Wound 11/18/24 1 Diabetic Ulcer Calf Right;Medial (Active) Wound Image 12/31/241414 Site Assessment Red;Yellow 12/31/241414 Ana-wound Assessment Blanchable erythema;Painful 12/31/241414 Shape blocked 12/31/241414 Wound Length (cm) 4.2 cm 12/31/241414 Wound Width (cm) 5.9 cm 12/31/241414 Wound Surface Area (cm^2) 19.46 cm^2 12/31/241414 Wound Depth (cm) 0.1 cm 12/31/241414 Wound Volume (cm^3) 1.297 cm^3 12/31/241414 Change in Wound Size % 30.7 12/31/241414 Drainage Description Serosanguineous;Yellow 12/31/241414 Drainage Amount Moderate 12/31/241414 Treatments Cleansed with;Wound cleanser;Soak with;Vashe/Hypochlorous Acid 12/31/241414 Debridement Performed? N 12/31/241414 Type of Debridement Sharp to Subcutaneous 11/18/241402 Dressing Type Honey Dressing 12/31/241414 Dressing Changed New 12/31/241414 Dressing Status Clean;Dry;Intact 12/31/241414 Wound Bed Granulation (%) 25% to 50% 12/31/241414 Wound Bed Slough (%) 50% to 75% 12/31/241414 Wound Bed Eschar (%) < 25% 11/18/24 1335 Wound 11/18/24 2 Diabetic Ulcer Heel Right;Plantar (Active) Wound Image 12/31/24 141 Site Assessment Eschar Unstable 12/31/241418 Ana-wound Assessment Maceration;Purple;Fragile;Blancha ble erythema 12/31/241418 Wound Length (cm) 0.5 cm 12/31/241418 Wound Width (cm) 1 cm 12/31/241418 Wound Surface Area (cm^2) 0.39 cm^2 12/31/241418 Change in Wound Size % 78.8 12/31/241418 Drainage Amount None 12/31/241418 Treatments Cleansed with;Wound cleanser;Soak with;Vashe/Hypochlorous Acid 12/31/241418 Debridement Performed? N 12/31/241418 Dressing Type Betadine Swab 12/31/241418 Dressing Changed New 12/31/241418 Dressing Status Clean;Dry;Intact 12/31/24 141 Wound Bed Eschar (%) 100% 12/31/241418 Wound 11/18/24 4 Diabetic Ulcer Calf Right;Lateral (Active) Wound Image 12/31/241418 Site Assessment Red;Yellow 12/31/241418 Ana-wound Assessment Blanchable erythema 12/31/241418 Shape blocked 11/18/24 1335 Wound Length (cm) 1.1 cm 12/31/241418 Wound Width (cm) 2.6 cm 12/31/241418 Wound Surface Area (cm^2) 2.25 cm^2 12/31/241418 Wound Depth (cm) 0.1 cm 12/31/241418 Wound Volume (cm^3) 0.15 cm^3 12/31/241418 Change in Wound Size % 76.11 12/31/241418 Drainage Description Sanguineous 12/31/241418 Drainage Amount Scant 12/31/241418 Treatments Cleansed with;Wound cleanser 12/31/241418 Debridement Performed? N 12/31/241418 Dressing Type Honey Dressing;Vaseline gauze 12/31/241418 Dressing Changed New 12/31/241418 Dressing Status Clean;Dry;Intact 12/31/241418 Wound Bed Granulation (%) 25% to 50% 12/31/241418 Wound Bed Slough (%) 50% to 75% 12/31/241418 Wound Bed Eschar (%) 100% 11/18/24 1335 Wound 12/01/24 Pressure Injury Buttocks Right (Active) Wound 12/31/24 5 Ankle/Malleolus Right;Anterior (Active) Wound Image 12/31/24 141 Site Assessment Black 12/31/241418 Ana-wound Assessment Intact 12/31/241418 Wound Length (cm) 3.2 cm 12/31/241418 Wound Width (cm) 3 cm 12/31/241418 Wound Surface Area (cm^2) 7.54 cm^2 12/31/241418 Drainage Amount None 12/31/241418 Treatments Cleansed with;Wound cleanser 07/17/25 1419 Debridement Performed? N 12/31/24 1419 Dressing Type Honey Dressing 12/31/24 1419 Dressing Changed New 12/31/24 1419 Dressing Status Clean;Dry;Intact 12/31/24 1419 Wound Bed Eschar (%) 100% 12/31/24 1419 Wound 12/31/24 6 Heel Left (Active) Wound Image 12/31/24 142 Site Assessment Painful;Black 12/31/24 142 Ana-wound Assessment Blanchable erythema 12/31/24 142 Wound Length (cm) 3.9 cm 12/31/241421 Wound Width (cm) 4 cm 12/31/24 142 Wound Surface Area (cm^2) 12.25 cm^2 12/31/24 142 Drainage Amount None 12/31/24 142 Debridement Performed? N 12/31/24 1422 Dressing Type Betadine Swab 12/31/24 142 Dressing Changed New 12/31/24 142 Dressing Status Clean;Dry;Intact 12/31/24 142 Wound Bed Eschar (%) 100% 12/31/24 142 Declines debridement today due to pain. Assessment/Plan/Education: 1. Non-pressure ulcer of lower extremity with fat layer exposed, right (CMS-HCC) 2. Pressure injury of right heel, unstageable (CMS-HCC) 3. Venous stasis ulcer of left lower leg with edema of left lower leg (CMS-HCC) 4. Lymphorrhea 5. 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 ([facility]) Patient declines assessment of buttock wound today states she does not want to turn. She reports the facility is putting some sort of ointment on it daily and she denies pain to this wound. Please continue current plan of care. She states she is taking a protein drink daily. Please have patient evaluated by a mine inspector for any protein needs to assist with healing. Avoid prolonged leg dependency. Wash legs and feet every day, apply moisturizing lotion at night, avoid lotion between the toes. Raise feet above the level of the heart 10-15 min several times daily. Follow a low sodium diet. Wear compression stockings as prescribed. Bilateral FAHAD wraps. Calf pump exercises daily. 2 week(s) of compression, elevation and exercise, chronic lymphedema remains (start date:10/13/2024). She states she does have offloading boots and has been wearing them. Reinforced the importance of heel offloading. The following should be performed Daily and as needed. Wound Location(s): all heel wounds STEP 1: Cleanse with soap and water then pat dry. Then paint wound with betadine and protect with heel foam. Wound Location(s): Right calf wounds, right anterior ankle STEP 1:Cleanse with soap and water then pat dry STEP 2: apply Santyl ointment to adaptic, then place on wound bed. STEP 3: Cover with ABD dressing and roll gauze STEP 4: Secure with fahad wrap (for compression) starting at the base of the toes to below the knee. Patient instructed in Other: wound care to left, right, foot, and leg. Short term goal: medical compliance intermediate designer goal: wound closure Patient verbalize understanding of treatment regimen and the importance of adherence. Follow up in wound clinic in 1 week Instructed to contact wound clinic, PCP or ER should symptoms worsen. The patient was taught to watch for S/S of infection (redness, pus, pain, increased swelling, chills or fever) and to call the PCP or wound care clinic if such occurs. The patient was educated on offloading the area by avoiding direct pressure to the wound bed. Education as well as the pathophysiology of the disease process was provided on infection, edema, necrotic tissue and its relationship to nonhealing wounds. Education was also provided on treatment plan. Patient verbalized understanding. Total time spent was 25 minutes: Preparing to see the patient (e.g., review of tests) Obtaining and/or reviewing separately obtained history Performing a medically appropriate examination and/or evaluation Counseling and educating the patient/family/caregiver Referring and communicating with other health ambulatory care (not separately reported) Documenting clinical information in the electronic or other health record KESHA Virgen [facility] Main Office: [phone] Email: [email or web address] 01/01/25 1611 documented in this encounter [facility] 12-31-2024 Instructions Ceci Byrd RN - 12/31/2024 1:20 PM EDT [facility] Treatment Plan Wound Location(s): Left and right heel, toe wounds HOW TO CARE FOR YOUR WOUND The following should be performed Daily and as needed. STEP 1: Cleanse with soap and water then pat dry. Then paint wound with betadine and protect with heel foam. Wound Location(s): Right calf, right ankle HOW TO CARE FOR YOUR WOUND The following should be performed Daily and as needed. STEP 1: Cleanse with soap and water then pat dry STEP 2: Apply Santyl ointment to adaptic, then place on wound bed. STEP 3: Cover with ABD dressing and roll gauze STEP 4: Secure with fahad wrap (for compression) starting at the base of the toes to below the knee. ACTIVITY: Avoid pressure at all times NUTRITION: High protein diet SKIN CARE: Moisturize all dry and intact skin SWELLING CONTROL: Elevate legs whenever sitting to level of heart/hips or higher.Fahad wrap (for compression) starting at the base of the toes to below the knee. May remove at bedtime ITEMS TO FOLLOW UP ON: patient declined to have bottom checked for wounds today 12/31. Continue care per current instructions. Will attempt to assess next visit. Please have patient evaluated by a mine inspector for any protein needs to assist with healing. Length Width Depth Wound 12/31/24 6 Heel Left-Wound Length (cm): 3.9 cm Wound 11/18/24 1 Diabetic Ulcer Calf Right;Medial-Wound Length (cm): 4.2 cm Wound 11/18/24 2 Diabetic Ulcer Heel Right;Plantar-Wound Length (cm): 0.5 cm Wound 11/18/24 4 Diabetic Ulcer Calf Right;Lateral-Wound Length (cm): 1.1 cm Wound 12/31/24 5 Foot Plantar;Right-Wound Length (cm): 3.2 cm Wound 12/31/24 6 Heel Left-Wound Width (cm): 4 cm Wound 11/18/24 1 Diabetic Ulcer Calf Right;Medial-Wound Width (cm): 5.9 cm Wound 11/18/24 2 Diabetic Ulcer Heel Right;Plantar-Wound Width (cm): 1 cm Wound 11/18/24 4 Diabetic Ulcer Calf Right;Lateral-Wound Width (cm): 2.6 cm Wound 12/31/24 5 Foot Plantar;Right-Wound Width (cm): 3 cm Wound 12/31/24 6 Heel Left-Wound Depth (cm): (UTD) Wound 11/18/24 1 Diabetic Ulcer Calf Right;Medial-Wound Depth (cm): 0.1 cm Wound 11/18/24 2 Diabetic Ulcer Heel Right;Plantar-Wound Depth (cm): (UTD) Wound 11/18/24 4 Diabetic Ulcer Calf Right;Lateral-Wound Depth (cm): 0.1 cm Wound 12/31/24 5 Foot Plantar;Right-Wound Depth (cm): (UTD) Wound drainage Type Description moderate Serosanginous yellow documented in this encounter [facility] 12-25-2024 Miscellaneous Notes Reyna from [facility] calling to notify Dr. Taylor that patient already has a scheduled appt with [facility] 01/05/2025. Does Dr. Taylor feel patient should see Dr. Harris specifically. No she can keep that Uro appt. Message given to Loretta at [facility] to keep Urology appt documented in this encounter [facility] 12-25-2024 Telephone encounter Note Reyna from [facility] calling to notify Dr. Taylor that patient already has a scheduled appt with [facility] 01/05/2025. Does Dr. Taylor feel patient should see Dr. Harris specifically. [facility] 12-25-2024 Telephone encounter Note No she can keep that Uro appt. [facility] 12-25-2024 Telephone encounter Note Message given to Loretta at [facility] to keep Urology appt [facility] 12-24-2024 History of Present illness Narrative Images from the original note were not included. Date of Service: 12/24/24 PCP: ANGELINE BRIDGES MD History of Present Illness Rupa Gutierrez is a 84 y.o. female, with stage IIIB chronic kidney disease returning for nephrologic follow-up. We recently saw her during a [facility] stay in October of 2024 when she was admitted with complaints of bilateral lower extremity pain. As an outpatient she had been treated for lower extremity cellulitis. A swab of the right and left heel grew many Gram-negative cocci bacilli and moderate Gram-negative bacilli. The patient was treated with ceftriaxone and vancomycin. She was eventually discharged on cefepime for which she was to complete an additional 11 day course (commencing November 13, 2024) a PICC line was placed for the completion of her antibiotics. Her creatinine peaked to 2.35 mg/dL but shortly before hospital discharge on November 13, 2024 the creatinine was 1.34. She will developed urinary retention during that hospital stay and was discharged with a Nj catheter in place.The catheter remains in place. The patient was rehospitalized at the [facility] from November 30 through December 03, 2024 with complaints of weakness and abnormal chemistries. Admitting creatinine was 2.74 and potassium 5.3. The patient received a L of normal saline and 10 g of Kayexalate. Nephrology was not consulted during that hospital stay. She was discharged on December 03, 2024 laboratories at discharge showed a BUN of 66 and a creatinine 1.82. She was discharged on Augmentin b.i.d. for 5 days. At the time of discharge she was on her home dose of Lasix 40 mg p.o. q.a.m. and 20 mg p.o. q.p.m.. Laboratories of December 07, 2024 show a BUN of 34 creatinine 1.9 EGFR 26 mL/min. The sodium was 143 potassium 4.2 chloride 106 total CO2 25 white blood cell count was 10.2 hemoglobin 9.8 hematocrit 31.7. A urine culture grew no organisms. The patient has been recuperating at the [facility]. She continues to require wound care of her lower extremity cellulitis, chronic venous stasis ulcerations. She still has a Nj catheter in place that was inserted in October of 2024. She would benefit from a urological evaluation possible voiding trial. Problem List 1. Chronic kidney disease stage IIIB. Nephrologic investigations in May of 2020 included an LUISITO screen which was positive and anti double-stranded DNA antibody titer that was elevated to 27. Rheumatoid factor less than 10. 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 A urinalysis on 05/27/2020 showed trace protein greater than 1000 mg/dL of glucose less than 1 red blood cell and 1 white blood cell per high-power field the urine protein creatinine ratio was 0.98 gram/gram predicting that in 24 hours, approximately 980 mg of protein would be excreted. Some early serologies include a C-reactive protein which was 2.0. An LUISITO screen which was positive. Anti double-stranded DNA was 27. Rheumatoid factor was less than that. A urinalysis of 04/17/2019 showed 100 mg/dL protein. Hyperkalemia October 2024 2. Type 1 diabetes mellitus 3. Hypertension 4. Hyperlipidemia 5. Hypothyroidism 6. History of distal left ureteral calculus followed by Dr. Harris. A CT scan of the abdomen pelvis on November 01, 2019 showed a left, 2 mm, ureterovesical junction stone. She was treated transiently with Flomax but stopped it because it made her feel poorly. By 09/04/2019 was felt that she had spontaneously passed the stone. 7.Osteoarthritis. Multiple joints affected, a right total knee arthroplasty has been recommended by Dr. Arevalo. 8. Cervical radiculopathy status post anterior approach diskectomy 9. History of C difficile diarrhea 10. Anemia October 2024 11. Thrombocytopenia October 2024 Surgical, Family & Social History Surgical History: Past Surgical History: Procedure Laterality Date APPENDECTOMY 1951 SECTION x2 DILATION AND CURETTAGE OF UTERUS DISCECTOMY EYE SURGERY NECK SURGERY TONSILLECTOMY Social History: Social History Socioeconomic History Marital status: Spouse name: Not on file Number of children: Not on file Years of education: Not on file Highest education level: Not on file Occupational History Not on file Tobacco Use Smoking status: Former Smokeless tobacco: Never Vaping Use Vaping status: Never Used Substance and Sexual Activity Alcohol use: Never Drug use: Never Sexual activity: Defer Other Topics Concern Caffeine Use Yes Comment: coffee Social History Narrative Not on file Social Drivers of Health Financial Resource Strain: Not on file Food Insecurity: No Food Insecurity (12/01/2024) Hunger Screening Food Insecurity - Worry: Never True Food Insecurity - Inability: Never True Transportation Needs: No Transportation Needs (11/30/2024) PRAPARE - Transportation Lack of Transportation (Medical): No Lack of Transportation (Non-Medical): No Physical Activity: Not on file Stress: Not on file Social Connections: Not on file Interpersonal Safety: Not At Risk (11/30/2024) Humiliation, Afraid, Rape, and Kick questionnaire Fear of Current or Ex-Partner: No Emotionally Abused: No Physically Abused: No Sexually Abused: No Housing Instability: Low Risk (11/30/2024) Housing Instability Housing Instability: No Family History: Family History Problem Relation Age of Onset Cancer Mother Ovarian cancer Mother Heart disease Father Allergies & Medications Allergies: Allergies Allergen Reactions Capsaicin Other (See Comments) Lisinopril Cough Ropinirole Other (See Comments) Diatrizoate Meglumine Rash Iodine Rash Levofloxacin In D5w Rash Propoxyphene Rash Current Meds: Current Outpatient Medications Medication Sig Dispense Refill acetaminophen-codeine (TYLENOL #3) 300-30 mg per tablet Take 1 tablet by mouth daily as needed. cyanocobalamin 1000 MCG tablet Take 1 tablet (1,000 mcg total) by mouth in the morning. ferrous sulfate 325 (65 FE) MG tablet Take 1 tablet (325 mg total) by mouth daily with breakfast. furosemide (LASIX) 20 mg tablet Take 2 tablets (40 mg total) by mouth daily with breakfast AND 1 tablet (20 mg total) Daily before evening meal. 40 mg in am and 20 mg in pm. (Patient taking differently: 1 tablet oral daily ) 90 tablet 6 insulin aspart U-100 (NovoLOG) 100 unit/mL injection Inject under the skin in the morning and at noon and in the evening. Inject before meals. As directed per sliding scale. insulin glargine (LANTUS) 100 unit/mL injection Inject 0.6 mL (60 Units total) under the skin in the morning. levothyroxine (SYNTHROID, LEVOTHROID) 25 MCG tablet Take 2 tablets (50 mcg total) by mouth nightly. magnesium oxide (MAGOX) 400 mg tablet Take 1 tablet (400 mg total) by mouth in the morning. 90 tablet 3 spironolactone (ALDACTONE) 25 mg tablet Take 1 tablet (25 mg total) by mouth in the morning. tamsulosin (FLOMAX) 0.4 mg capsule Take 1 capsule (0.4 mg total) by mouth nightly. naloxone (NARCAN) 4 mg/actuation spray,non-aerosol nasal spray Administer 1 spray (4 mg total) into alternating nostrils as needed for opioid reversal. (Patient not taking: Reported on 12/24/2024) pantoprazole (PROTONIX) 40 mg EC tablet Take 1 tablet (40 mg total) by mouth in the morning. (Patient not taking: Reported on 12/24/2024) pregabalin (LYRICA) 25 mg capsule Take 1 capsule (25 mg total) by mouth in the morning and 1 capsule (25 mg total) before bedtime. (Patient not taking: Reported on 12/24/2024) sodium chloride 0.9 % injection Infuse 10 mL into a venous catheter every 12 (twelve) hours. (Patient not taking: Reported on 12/24/2024) sodium chloride 0.9 % injection Infuse 10 mL into a venous catheter as needed for line care. (Patient not taking: Reported on 12/24/2024) No current facility-administered medications for this visit. Review of Systems Review of Systems Constitutional: Negative for chills, diaphoresis, fatigue and fever. HENT: Negative for congestion, ear discharge, ear pain, facial swelling and hearing loss. Eyes: Negative for pain, discharge, redness and itching. Respiratory: Negative for cough, shortness of breath and wheezing. Cardiovascular: Positive for leg swelling. Negative for chest pain and palpitations. Gastrointestinal: Negative for abdominal pain, constipation, diarrhea, nausea and vomiting. Endocrine: Negative for polydipsia, polyphagia and polyuria. Genitourinary: Negative for decreased urine volume, difficulty urinating, dysuria, enuresis, flank pain, frequency, hematuria and urgency. Musculoskeletal: Negative for arthralgias, joint swelling and myalgias. Skin: Negative for rash and wound. Neurological: Negative for dizziness, tremors, weakness, light-headedness and numbness. Hematological: Negative for adenopathy. Does not bruise/bleed easily. Physical Exam Vital Signs: Vitals: 12/24/24 1134 BP: 109/51 BP Site: Left Arm BP Postition: Sitting BP CUFF SIZE: M (9-13 inches) Pulse: 96 Weight: 98 kg (216 lb) Height: 149.9 cm (4' 11 ) BMI: Body mass index is 43.63 kg/m . General appearance: Awake alert oriented 84-year-old woman in no acute respiratory distress Psychiatric: Oriented to place, time and person HEENT: atraumatic, supple, moist oral mucosa, no JVD Cardiovascular: normal S1-S2 Respiratory: No respiratory distress with no use of accessory muscles. Clear to auscultation bilaterally with no wheezes or crackles Abdomen: soft, no tenderness, no guarding, positive bowel sounds and no hepato or splenomegaly Vascular: adequate pulses and no carotid bruits. The patient does have venous stasis changes of the lower extremities bilaterally. Bilateral Fahad wraps in place is in place. Musculoskeletal: no joint swelling or tenderness. Neurologic: No focal deficit in upper or lower extremities Lymphatic: no cervical or axillary lymphadenopathy. Edema: Minimal lower extremity edema lower extremities in Fahad wraps bilaterally Laboratory Studies Chemistry: Lab Results Component Value Date SODIUM 143 12/03/2024 SODIUM 138 2024 SODIUM 140 12/01/2024 SODIUM 137 11/30/2024 SODIUM 136 11/14/2024 K 3.9 12/03/2024 K 4.1 2024 K 4.8 12/01/2024 K 5.3 (H) 11/30/2024 K 3.6 11/14/2024 CL 107 12/03/2024 CL 101 2024 CL 105 12/01/2024 CL 98 11/30/2024 CL 100 11/14/2024 CO2 24 12/03/2024 CO2 25 2024 CO2 26 12/01/2024 CO2 28 11/30/2024 CO2 28 11/14/2024 ANIONGAP 12 12/03/2024 ANIONGAP 12 2024 ANIONGAP 9 12/01/2024 ANIONGAP 11 11/30/2024 ANIONGAP 8 11/14/2024 BUN 44 (H) 12/03/2024 BUN 66 (H) 2024 BUN 77 (H) 12/01/2024 BUN 91 (H) 11/30/2024 BUN 31 (H) 11/14/2024 CREATININE 1.44 (H) 12/03/2024 CREATININE 1.82 (H) 2024 CREATININE 2.09 (H) 12/01/2024 CREATININE 2.74 (H) 11/30/2024 CREATININE 1.37 (H) 11/14/2024 EGFR 36 (L) 12/03/2024 EGFR 27 (L) 2024 EGFR 23 (L) 12/01/2024 EGFR 17 (L) 11/30/2024 EGFR 38 (L) 11/14/2024 CALCIUM 9.1 12/03/2024 CALCIUM 8.5 2024 CALCIUM 8.7 12/01/2024 CALCIUM 9.2 11/30/2024 CALCIUM 8.2 (L) 11/14/2024 MG 1.8 12/03/2024 MG 2.0 2024 MG 2.1 12/01/2024 MG 2.3 11/30/2024 MG 1.8 11/14/2024 PHOSPHORUS 3.1 2024 PHOSPHORUS 3.7 12/01/2024 PHOSPHORUS 3.8 11/30/2024 PHOSPHORUS 2.3 (L) 11/14/2024 PHOSPHORUS 2.7 11/13/2024 Lab Results Component Value Date TOTALPROTEI 6.8 12/03/2024 TOTALPROTEI 6.2 2024 ALBUMIN 2.7 (L) 12/03/2024 ALBUMIN 2.6 (L) 2024 AST 12 12/03/2024 AST 12 2024 ALT 11 12/03/2024 ALT 10 2024 BILIRUBIN 0.7 12/03/2024 BILIRUBIN 0.7 2024 ALKPHOS 78 12/03/2024 ALKPHOS 75 2024 Hematology: Lab Results Component Value Date WBC 10.0 12/03/2024 WBC 9.4 2024 HGB 10.0 (L) 12/03/2024 HGB 9.3 (L) 2024 HCT 30.2 (L) 12/03/2024 HCT 28.1 (L) 2024 PLT 350 12/03/2024 PLT 352 2024 Anemia Studies: Lab Results Component Value Date IRONSAT 11 (L) 11/30/2024 IRONSAT 20 11/10/2024 FERRITIN 151 11/30/2024 FERRITIN 235 11/10/2024 [id number] 182 11/10/2024 [id number] 213 11/09/2024 FOLATE 13.5 11/10/2024 FOLATE 12.9 11/09/2024 Mineral and Bone Labs: Lab Results Component Value Date CALCIUM 9.1 12/03/2024 CALCIUM 8.5 2024 PHOSPHORUS 3.1 2024 PHOSPHORUS 3.7 12/01/2024 VITD25 63.5 11/09/2024 VITD25 57.7 10/30/2023 PTH 161 (H) 02/07/2024 PTH 101 (H) 10/30/2023 Urine Studies: Lab Results Component Value Date COLOR Yellow 11/09/2024 COLOR YELLOW 02/07/2024 TURBIDITY Clear 11/09/2024 TURBIDITY CLEAR 02/07/2024 SPECIFICGRA 1.015 11/30/2024 SPECIFICGRA 1.020 11/09/2024 SPECIFICGRA 1.018 02/07/2024 NITRITE Negative 11/09/2024 NITRITE Negative 02/07/2024 PHURINE 6.0 11/09/2024 PHURINE 6.0 02/07/2024 LEUKOCYTE Small (A) 11/30/2024 LEUKOCYTE Trace (A) 11/09/2024 LEUKOCYTE Negative 02/07/2024 PROTEIN Negative 11/09/2024 PROTEIN 50 (A) 02/07/2024 KETONES Negative 11/09/2024 KETONES Negative 02/07/2024 UROBILINOGEN 0.2 E.U./dL 11/30/2024 UROBILINOGEN 0.2 eu/dL 11/09/2024 UROBILINOGEN <1.1 02/07/2024 BLOODHGB Negative 11/09/2024 BLOODHGB Small (A) 02/07/2024 Lab Results Component Value Date UPROCRTRAT 0.80 (H) 02/07/2024 UPROCRTRAT 0.59 (H) 10/30/2023 UPROCRTRAT 0.84 (H) 10/29/2022 UPROCRTRAT 0.27 (H) 01/15/2022 UPROCRTRAT 0.48 (H) 07/14/2021 MICROALBUR 15.7 (H) 09/14/2022 MICROALBUR 6.4 (H) 07/11/2019 Immunology Profile Lab Results Component Value Date SEDRATE 89 (H) 11/08/2024 CRP 10.9 (H) 11/11/2024 ANASCREEN Positive (A) 05/27/2020 MYELOP <0.2 09/20/2020 No results found for: HAV , HEPAIGM , HEPBIGM , HEPBCAB , HBEAG , HEPCAB Imaging Echocardiogram: Echo complete W/ contrast Result Date: 09/11/2024 Left Ventricle: Left ventricle appears normal in size. Systolic function is normal with an ejection fraction of 65-70%. Normal left ventricular size with [id number] concentric left ventricular hypertrophy. Normal hyperdynamic left ventricular systolic function. Mild tricuspid regurgitation IMPRESSION 1. Stage IIIB chronic kidney disease: Her chronic kidney disease has been attributed to nephrosclerosis and/or diabetic nephropathy. PLAN 1. Target systolic blood pressure to less than 130 mmHg. 2. Target hemoglobin A1c to 7% or less. 3. She is not a candidate for Fahad inhibition or angiotensin receptor blockade because of lisinopril allergy and her tendency toward hyperkalemia. 4. She may be a candidate for SGLT2 therapy for renal protection and protein sparing in the future. 5. She will return the office in 4 months time for repeat evaluation. A CKD panel will be obtained then. 6.Urology consult with Dr. Harris regarding urine retention. Thank you ANGELINE BRIDGES MD for the opportunity to participate in the care of your patients! Please contact me at [phone] (Office) or [phone] (Answering service) with any questions. CLAUDIA TAYLOR MD [facility] This note was created with the assistance of a speech-recognition program. Although the intention is to generate a document that actually reflects the content of the visit, no guarantees can be provided that every mistake has been identified and corrected by editing. CLAUDIA TAYLOR MD,PhD FACP [facility] ANY QUESTIONS FEEL FREE TO CALL: 1. OFFICE [phone] 2. ANSWERING SERVICE: [phone] documented [facility] Note HPI Reported by patient. Hand Dominance: right Location: right distal radius fracture sustained 3.5months ago, treated non operative fashion by Dr. Lerma at [facility], referred to Dr. Ortiz , seen on 10/19/24 Quality: ache Severity: improving, recently admitted to [facility] for multiple problems Alleviating Factors: nothing Aggravating Factors: ROM , activity Associated Symptoms: no weakness; no numbness; no tingling; mild swelling; no redness; no warmth; no ecchymosis; no catching/locking; no popping/clicking Previous Surgery: surgical procedure:none Prior Imaging: x ray ROS Patient reports no fever and no chills. Physical Exam Patient is a 83 yo female Constitutional: General Appearance: NAD and comfort comfortable. Psychiatric: Orientation: oriented to time, place, and person. Mood and Affect: normal affect and mood and active and alert. Gait and Station: Appearance:wheelchair Cardiovascular System: Extremities warm and well perfused Lymph Nodes: Mood and Affect: mood and affect normal. Skin: Intact Neurologic: Sensation: grossly intact. Head: Head: normocephalic and atraumatic. Neck: Neck: trachea midline. Lungs: Respiratory effort: no dyspnea. Hand/Wrist Musculoskeletal Exam Inspection Right Erythema: none Ecchymosis: none Edema: none Deformity: moderate Palpation Right Wrist tenderness to palpation: radial carpal joint General Constitutional: appears stated age Scleral icterus: no Labored breathing: no Psychiatric: normal mood and affect Neurological: alert and oriented x3 Skin: intact Xrays Displaced comminuted distal radius fracture subacute unchanged Noted on today's films Plan At this stage recommend observation due to multiple medical conditions Follow up in 4 weeks for re-evaluation [facility] 12-16-2024 Miscellaneous Notes Left message for patient to call the office back to confirm upcoming appointment 12/24 at 11:[address] Taylor in [place]. Also stated that patient needs to get labs done prior to upcoming appointment documented in this encounter [facility] 12-16-2024 Telephone encounter Note Left message for patient to call the office back to confirm upcoming appointment 12/24 at 11:[address] Taylor in [place]. Also stated that patient needs to get labs done prior to upcoming appointment [facility] 11-18-2024 History of Present illness Narrative Associated Order(s): Debridement Post-Procedure Diagnose(s): Lymphedema Images from the original note were not included. Wound Care Progress Note Patient: Rupa Gutierrez Date of : 1940 Chief Complaint: Bilateral leg swelling with ulcerations, follow up SUBJECTIVE/HPI: Rupa is a 83 y.o. female who presents to [facility] for evaluation of 4 ulcerations on the bilateral lower extremities. Patient established with wound clinic on 10/13/2024. Current wound care includes: Presents with roll gauze to bilateral leg. Patient reports she sleeps in a chair. Patient recently hospitalized 11/08/2024 through 11/13/2024 for pressure ulcer right heel and potential sepsis. Patient had been undergoing antibiotic treatment for bilateral lower leg cellulitis. Patient was seen by the wound care inpatient team while hospitalized. Patient reports she has had chronic leg swelling for the last 2-3 years. Currently patient is in a nursing rehabilitation facility. Patient reports it is difficult to leave her home as she cannot pivot from chair to wheelchair. She requires the assistance of the local fire department to get her into her car. Patient unable to get out of the wheelchair for wound care assessment. Patient was given a erin lift sling for next appointment use. Instructed to put the sling on the wheelchair before getting into the wheelchair. Measurable wound changes: Stable wounds Patient accompanied by: Daughter, patient arrives in wheelchair Nutritional screen shows patient does take in three servings of protein per day. Patient does deny fever, chills, sweats, or other signs of infection. Prescribed antibiotics: Cefepime IV QD as prescribed. Today's reported Blood Sugar:113 Lab Results Component Value Date HGBA1C 10.1 (H) 04/26/2021 HGBA1C 12.4 (H) 12/12/2018 Tobacco use: former smoker Contributing comorbid conditions: BMI 43.6, recent close fracture of right wrist. Labs/Imaging/Cardiovascular: Patient's chart was reviewed for all available supporting documentation, laboratory results and radiographic examination. Patient Active Problem List Diagnosis Abdominal pain Calculus of ureter BMI 45.0-49.9, adult [place] Morbid obesity [place] Mild tricuspid regurgitation Pulmonary hypertension [place] Essential hypertension Preop cardiovascular exam Lymphedema Diabetes mellitus type I ([facility] Cellulitis of lower extremity, unspecified laterality Hyperkalemia Hypothyroid PVD (peripheral vascular disease) Hyponatremia Pressure injury of right heel, unstageable ([facility] Venous stasis ulcer of right lower leg with edema of right lower leg ([facility] Venous stasis ulcer of left lower leg with edema of left lower leg ([facility] Past Medical History: Diagnosis Date Anxiety C. difficile diarrhea CHF (congestive heart failure) ([facility] Dental disease Diabetes mellitus type I ([facility]) Hypertension Hypothyroid Insomnia Kidney stone stage 3 Neuropathy Obesity Osteoarthritis Paroxysmal supraventricular tachycardia Peripheral neuropathy Plantar fasciitis Pulmonary HTN ([facility]) PVD (peripheral vascular disease) Visual impairment White coat syndrome with diagnosis of hypertension Past Surgical History: Procedure Laterality Date APPENDECTOMY 1951 SECTION x2 DILATION AND CURETTAGE OF UTERUS DISCECTOMY EYE SURGERY NECK SURGERY TONSILLECTOMY Current Outpatient Medications Medication Sig Dispense Refill acetaminophen-codeine (TYLENOL #3) 300-30 mg per tablet Take 1 tablet by mouth every 4 (four) hours as needed for pain. cefEPime (MAXIPIME) 1000 mg/50 mL IVPB Premix Infuse 50 mL (1,000 mg total) into a venous catheter daily for 11 days. cyanocobalamin 1000 MCG tablet Take 1 tablet (1,000 mcg total) by mouth in the morning. furosemide (LASIX) 20 mg tablet Take 2 tablets (40 mg total) by mouth daily with breakfast AND 1 tablet (20 mg total) Daily before evening meal. 40 mg in am and 20 mg in pm. 90 tablet 6 insulin aspart U-100 (NovoLOG) 100 unit/mL injection Inject under the skin in the morning and at noon and in the evening. Inject before meals. As directed per sliding scale. insulin detemir (LEVEMIR FLEXPEN SUBQ) Inject 60 Units under the skin in the morning. levothyroxine (SYNTHROID, LEVOTHROID) 25 MCG tablet Take 1 tablet (25 mcg total) by mouth nightly. LORazepam (ATIVAN) 0.5 mg tablet Take 1 tablet (0.5 mg total) by mouth daily as needed. losartan (COZAAR) 100 mg tablet take 1 tablet by mouth in the morning 90 tablet 3 magnesium oxide (MAGOX) 400 mg tablet Take 1 tablet (400 mg total) by mouth in the morning. 90 tablet 3 pantoprazole (PROTONIX) 40 mg EC tablet Take 1 tablet (40 mg total) by mouth in the morning. potassium chloride (KLOR-CON M 20) 20 MEQ CR tablet Take 1 tablet (20 mEq total) by mouth in the morning. sodium chloride 0.9 % injection Infuse 10 mL into a venous catheter every 12 (twelve) hours. sodium chloride 0.9 % injection Infuse 10 mL into a venous catheter as needed for line care. spironolactone (ALDACTONE) 25 mg tablet Take 1 tablet (25 mg total) by mouth in the morning. tamsulosin (FLOMAX) 0.4 mg capsule Take 1 capsule (0.4 mg total) by mouth nightly. zolpidem (AMBIEN) 10 mg tablet Take 1 tablet (10 mg total) by mouth nightly as needed for sleep. No current facility-administered medications for this visit. Allergies Allergen Reactions Lisinopril Cough Diatrizoate Meglumine Rash Iodine Rash Levofloxacin In D5w Rash Propoxyphene Rash The following portions of the patient's history were reviewed and updated as appropriate: allergies, current medications, past family history, past medical history, past social history, past surgical history, problem list, and medication reconciliation was completed including current medication and post discharge medication. Pain Scale:denies Pain Scale 0/10: 6 Review of Systems Constitutional: Negative. Negative for activity change, appetite change and fever. HENT: Negative. Negative for trouble swallowing. Eyes: Positive for visual disturbance. Respiratory: Positive for shortness of breath. Negative for cough and wheezing. Cardiovascular: Positive for leg swelling. Negative for chest pain and palpitations. Gastrointestinal: Negative. Negative for abdominal distention, nausea and vomiting. Genitourinary: Positive for difficulty urinating. Negative for dysuria, frequency and urgency. Musculoskeletal: Positive for back pain and gait problem. Negative for neck stiffness. Skin: Positive for wound. Negative for color change. Neurological: Negative for numbness and headaches. Objective: Vitals: 11/18/24 1324 BP: 103/57 Pulse: 96 Resp: 18 Temp: 36.7 C (98 F) Physical Exam Vitals and nursing note reviewed. Constitutional: Appearance: She is well-developed. HENT: Head: Normocephalic and atraumatic. Cardiovascular: Rate and Rhythm: Normal rate. Rhythm irregular. Heart sounds: No murmur heard. No friction rub. Comments: Bilateral doppler signals weak, difficult to locate due to body habitus Bilateral lower extremity non compressible edema, feet relatively spared, weeping serous fluid + stemmers sign bilateral Pulmonary: Effort: No respiratory distress. Breath sounds: Normal breath sounds. Abdominal: General: Bowel sounds are normal. Palpations: Abdomen is soft. Musculoskeletal: General: Normal range of motion. Cervical back: Normal range of motion. Skin: General: Skin is warm and dry. Neurological: Mental Status: She is alert and oriented to person, place, and time. Wound Assessment Wound 11/18/24 1 Diabetic Ulcer Calf Right;Medial (Active) Wound Image Pre debridement Firmly adhered fibrin Post debridement 11/18/24 1403 Site Assessment [place];Red;Yellow;Brown 11/18/24 1335 Ana-wound Assessment Blanchable erythema 11/18/24 133 Shape blocked 11/18/241334 Wound Length (cm) 5.5 cm 11/18/241334 Wound Width (cm) 6.5 cm 11/18/241334 Wound Surface Area (cm^2) 28.08 cm^2 11/18/241334 Drainage Description Serosanguineous;Yellow 11/18/241334 Drainage Amount Moderate 11/18/241334 Treatments Cleansed with;Wound cleanser;Soak with;Vashe/Hypochlorous Acid 11/18/241334 Debridement Performed? Y 11/18/241402 Type of Debridement Sharp to Subcutaneous 11/18/241402 Dressing Type Abdominal dressing;Honey Dressing;Vaseline gauze;Other (Comment) 11/18/241402 Dressing Changed New 11/18/241402 Dressing Status Clean;Dry;Intact 11/18/241402 Wound Bed Granulation (%) < 25% 11/18/241334 Wound Bed Slough (%) 75% to 100% 11/18/241334 Wound Bed Eschar (%) < 25% 11/18/241334 Wound 11/18/24 2 Diabetic Ulcer Heel Right;Plantar (Active) Wound Image Pressure ulcer 11/18/241334 Site Assessment Eschar stable 11/18/241334 Ana-wound Assessment Maceration;Purple;Fragile;Blancha ble erythema 11/18/241334 Wound Length (cm) 1.3 cm 11/18/241334 Wound Width (cm) 1.8 cm 11/18/241334 Wound Surface Area (cm^2) 1.84 cm^2 11/18/241334 Drainage Amount None 11/18/241402 Treatments Cleansed with;Wound cleanser;Soak with;Vashe/Hypochlorous Acid 11/18/241334 Debridement Performed? N 11/18/24 140 Wound Bed Eschar (%) 100% 11/18/241334 Wound 11/18/24 3 Diabetic Ulcer Ankle/Malleolus Anterior;Left (Active) Wound Image 11/18/241334 Site Assessment Black 11/18/241334 Ana-wound Assessment Blanchable erythema 11/18/241334 Wound Length (cm) 0.3 cm 11/18/24 1335 Wound Width (cm) 0.4 cm 11/18/24 1335 Wound Surface Area (cm^2) 0.09 cm^2 11/18/24 133 Drainage Description Sanguineous 11/18/24 133 Drainage Amount Scant 11/18/24 133 Treatments Cleansed with;Wound cleanser;Soak with;Vashe/Hypochlorous Acid 11/18/24 133 Debridement Performed? N 11/18/24 133 Wound Bed Eschar (%) 100% 11/18/24 1335 Wound 11/18/24 4 Diabetic Ulcer Calf Right;Lateral (Active) Wound Image 11/18/241334 Site Assessment Eschar Stable 11/18/241334 Ana-wound Assessment Blanchable erythema 11/18/241334 Shape blocked 11/18/241334 Wound Length (cm) 4 cm 11/18/241334 Wound Width (cm) 3 cm 11/18/241334 Wound Surface Area (cm^2) 9.42 cm^2 11/18/241334 Wound Depth (cm) 0.1 cm 11/18/241334 Wound Volume (cm^3) 0.628 cm^3 11/18/241334 Drainage Description Sanguineous 11/18/241334 Drainage Amount Scant 11/18/24 133 Treatments Cleansed with;Wound cleanser;Soak with;Vashe/Hypochlorous Acid 11/18/24 133 Debridement Performed? N 11/18/241334 Wound Bed Eschar (%) 100% 11/18/24 94369 Discussion: Debridement is the removal of foreign material and/or devitalized tissue until healthy tissue is exposed. Risks, benefits and alternatives were discussed with the patient and daughter. We discussed possible complications, including infection and bleeding. Written consent was obtained prior to the procedure. Timeout procedure completed. Goal of debridement includes: removal of devitalized tissue, decrease risk of infection, promote wound healing and prevent further complications. Debridement Performed by: JAM Meehan Authorized by: JAM Meehan Associated wounds: Wound 11/18/24 1 Diabetic Ulcer Calf Right;Medial Consent: Consent obtained: Verbal and written Consent given by: Patient Risks discussed: Yes Debridement Details: Performed by: KETTLE COOK Type: Sharp Level: Subcutaneous Tissue, Devitalized tissue and other material debrided: Subcutaneous tissue and fibrin Anesthesia administration: topical Anesthesia: EMLA Total Surface Area Debrided cm^2: 28.08 Specimen Taken: None Instrument: Curette Amount of bleeding: Small Bleeding Control: Pressure Response to treatment: Procedure was tolerated well Tissue Applied?: No Assessment/Plan/Education: 1. Lymphedema 2. Lymphorrhea 3. Pressure injury of right heel, unstageable ([facility]) 4. Non-pressure ulcer of lower extremity with fat layer exposed, right ([facility]) Avoid prolonged leg dependency. Wash legs and feet every day, apply moisturizing lotion at night, avoid lotion between the toes. Raise feet above the level of the heart 10-15 min several times daily. Follow a low sodium diet. Wear compression stockings as prescribed. Bilateral FAHAD wraps Calf pump exercises daily. 2 week(s) of compression, elevation and exercise, chronic lymphedema remains (start date:10/13/2024). Right heel #2 Wash mild soap and water [place] with betadine daily Pad and protect with heel foam No weight bearing of right heel Right medial calf #1 Wash mild soap and water Medi honey to wound bed Cover with moist 0.125% Dakins moist gauze Cover with dry dressing of comfort Change daily All other wounds # 2 & 3 Wash mild soap and water Apply ATB ointment daily Patient instructed in Other: Lymphedema care to left, right, and leg. Short term goal: medical compliance intermediate designer goal: wound closure Patient verbalize understanding of treatment regimen and the importance of adherence. Follow up in wound clinic in 4 weeks Instructed to contact wound clinic, PCP or ER should symptoms worsen. The patient was taught to watch for S/S of infection (redness, pus, pain, increased swelling, chills or fever) and to call the PCP or wound care clinic if such occurs. The patient was educated on offloading the area by avoiding direct pressure to the wound bed. Education as well as the pathophysiology of the disease process was provided on infection, edema, necrotic tissue and its relationship to nonhealing wounds. Education was also provided on treatment plan. Patient verbalized understanding. Total time spent was 25 minutes: Preparing to see the patient (e.g., review of tests) Obtaining and/or reviewing separately obtained history Performing a medically appropriate examination and/or evaluation Counseling and educating the patient/family/caregiver Ordering medications, tests, or procedures Referring and communicating with other health ambulatory care (not separately reported) Documenting clinical information in the electronic or other health record - JAM MEEHAN 11/18/24 2:01 PM Codie March APRN, MARTÍNEZ, CWS, BETO [facility]: [phone] JAM Meehan 10/13/24 8270 JAM Meehan 11/18/24 1410 documented in this encounter [facility] [employer] [facility] 11-18-2024 Instructions Letty Dodson RN - 11/18/2024 1:20 PM EDT [place]- Please place sling under patient in wheel chair before appointment Wound Management Treatment Plan Wound Location(s): Left heel HOW TO CARE FOR YOUR WOUND The following should be performed Daily and as needed. STEP 1: Cleanse with soap and water then pat dry then [place] wound with betadine and protect with heel foam Wound Location(s): Left medial calf HOW TO CARE FOR YOUR WOUND The following should be performed Daily and as needed. STEP 1: Cleanse with soap and water then pat dry STEP 2: Apply medi honey to adaptic then place on wound bed. STEP 3: Apply 0.125% dakins moistened gauze over adaptic STEP 4: Cover with ABD dressing and roll gauze STEP 5: Secure with fahad wrap (for compression) starting at the base of the toes to below the knee. Wound Locations: Left anterior ankle and right lateral calf HOW TO CARE FOR YOUR WOUND The following should be performed Daily and as needed. STEP 1: Cleanse with soap and water then pat dry STEP 2: Apply triple antibiotic STEP 3: Cover dry dressing then secure with fahad wrap (for compression) starting at the base of the toes to below the knee. ACTIVITY: Avoid pressure at all times NUTRITION: High protein diet SKIN CARE: Moisturize all dry and intact skin SWELLING CONTROL: Elevate legs whenever sitting to level of heart/hips or higher.Fahad wrap (for compression) starting at the base of the toes to below the knee. May remove at bedtime ITEMS TO FOLLOW UP ON: Make appt. with your gig tender for the right great toe. Length Width Depth Wound 11/18/24 1 Diabetic Ulcer Calf Right;Medial-Wound Length (cm): 5.5 cm Wound 11/18/24 2 Diabetic Ulcer Heel Right;Plantar-Wound Length (cm): 1.3 cm Wound 11/18/24 3 Diabetic Ulcer Ankle/Malleolus Anterior;Left-Wound Length (cm): 0.3 cm Wound 11/18/24 4 Diabetic Ulcer Calf Right;Lateral-Wound Length (cm): 4 cm Wound 11/18/24 1 Diabetic Ulcer Calf Right;Medial-Wound Width (cm): 6.5 cm Wound 11/18/24 2 Diabetic Ulcer Heel Right;Plantar-Wound Width (cm): 1.8 cm Wound 11/18/24 3 Diabetic Ulcer Ankle/Malleolus Anterior;Left-Wound Width (cm): 0.4 cm Wound 11/18/24 4 Diabetic Ulcer Calf Right;Lateral-Wound Width (cm): 3 cm Wound 11/18/24 2 Diabetic Ulcer Heel Right;Plantar-Wound Depth (cm): (utd) Wound 11/18/24 3 Diabetic Ulcer Ankle/Malleolus Anterior;Left-Wound Depth (cm): (utd) Wound 11/18/24 4 Diabetic Ulcer Calf Right;Lateral-Wound Depth (cm): 0.1 cm Wound drainage Type Description moderate Serosanginous yellow documented in this encounter [facility] 11-14-2024 Nurse Note PTN arrives to take patient back to [facility] AVS reviewed, questions answered, verbalized understaning. IV removed. PTN to transport patient to [facility] documented in this encounter [facility] 11-14-2024 Miscellaneous Notes Problem: Safety Goal: Patient will be injury free during hospitalization Description: INTERVENTIONS: 1. Assess patient's risk for falls and implement fall prevention plan of care per policy 2. Provide and maintain a safe environment 3. Proper use of double Identifiers 4. Medication administration using the 5 rights 5. Hand hygiene 6. Specimens are labeled at the bedside 7. Instruct patient/ patient employee representative about use of safety devices 8. Include patient/ patient employee representative in decisions related to safety Outcome: Progressing Note: Evaluation of progress towards goal: Remains free from injury. Safety precautions maintained. Problem: Knowledge Deficit Goal: Patient/patient employee representative demonstrates understanding of disease process, treatment plan, medications, and discharge instructions Description: INTERVENTIONS 1. Complete learning assessment and assess knowledge base 2. Provide teaching at level of understanding 3. Provide teaching via preferred learning method(s) Outcome: Progressing Note: Evaluation of progress towards goal: Plan of care reviewed, no questions/concerns voiced. All interventions explained prior to initiating. Pt forgetful, repeat/ reinforce instruction/plan of care prn. Problem: Urinary Incontinence Goal: Perineal skin integrity is maintained or improved Description: INTERVENTIONS 1. Assess genitourinary system, perineal skin, labs (urinalysis), and history of incontinence to include past management, aggravating, and alleviating factors 2. Keep skin clean and dry 3. Apply skin protectant 4. Develop skin care regimen 5. Provide privacy when changing patients incontinence device to maintain their dignity 6. Consider placing an indwelling catheter 7. Collaborate with interdisciplinary team and initiate plans and interventions as needed Outcome: Progressing Note: Evaluation of progress towards goal: perineal skin integrity maintained. Nj catheter remains in place et patent. Problem: Moderate - High Risk Fall Score Description: Nguyen Fall Score of =/> 25 or indicated by [facility] Assessment Goal: Patient should be free from fall Description: Interventions: 1. [place] to environment 2. Hourly rounds addressing the 4 P's (Pain, Positioning, Possessions, Potty) 3. Clear area of hazards (spills, clutter, electrical cords, unnecessary equipment) 4. Place equipment (bed & TV controls, call light, phone, urinal) within reach 5. Encourage patient to wear glasses and hearing aides as appropriate 6. Maintain bed in lowest position 7. Lock wheels on bed/wheelchair 8. Provide adequate lighting, including night light 9. Assess need for additional bedding, food/fluids, pain med's prior to sleep/routinely 10. Provide gripper slippers or personal non-skid footwear 11. Teach patient and patient employee representative to maintain environment for safety and engage in all aspects of fall prevention program 12. Remind patient to call for help before getting out of bed 13. Initiate bed/chair/exit alarms supportive devices as appropriate, (chair wedge, no-skid floor mat, raised edge mattress, hip protectors) 14. Locate patient bed assignment for optimal visualization 15. Evaluate and identify Safe Patient Handling Equipment needs 16. Provide supervision when out of bed or chair 17. Utilize gait belt as needed to assist with ambulation 18. Place adaptive equipment (cane, walker) within reach 19. Request patient employee representative bring adaptive equipment/mobility aids from home or obtain and provide as needed 20. Consult pharmacy regarding effects of med's affecting mobility, cognition, and alternatives 21. Obtain physician order for PT if risk factors associated with mobility are present 22. Obtain physician order for OT as appropriate 23. Utilize diversional activities 24. Educate patient and patient employee representative how to maintain a safe environment during visitation times (notify nurse prior to leaving bedside) 25. Consider appropriateness of medical or non-medical technical writer 26. Set up voiding schedule as appropriate (every 2 hours) Outcome: Progressing Note: Remains free from falls. Fall precautions maintained. DISCHARGE PLANNING NOTE CRF and nephrology sent to [facility], [place], [place] (P# ; F# ) Ongoing Assessment for Discharge Needs Reviewed discharge milestones and patient needs related to discharge plan. Current estimated discharge date of November 13, 2024 has been reviewed by treatment team. Ongoing Assessment for Discharge Needs Flowsheet Row Most Recent Value Services Requested Patient expects to be discharged to: return to [facility] for longterm stay Does the patient wish to have family/friend/caregiver involved in their discharge planning? Yes Does the patient plan to return home to a community setting? No, patient to discharge to facility-based provider. See Discharge Disposition Discharge Disposition Skilled Return Skilled Return Name [place] Skilled Return Skilled Return Does the patient need discharge transportation arranged? Yes Patient choice offered Patient declined List Provided Patient declined Patient Declined Active with Provider DC Planning Complete Discharge Milestones Yes Update from OPTICAL COATING TECHNICIAN, pt to DC today after PICC line placement. Tasked Transition Center to send referral to CRF & updated clinicals to [place] noting transport to be arranged after PICC line placed. Sticky note on chart with report/fax numbers. Occupational Therapy Treatment Discharge Recommendations for Safe Patient Transition Discharge Recommendations: Post acute - moderate Post Acute Moderate Rehab Needs: Recommend moderate intensity rehab, Tolerate 1-2 hrs of therapy 3-5 days/wk, Subacute or chronic functional impairment Current Impairments Informing Therapy Recommendation: Ambulation status/safety, Cognition, Fall risk, ADL status, Communication needs, Endurance level Derrick Worker Well Service Support for-: Mobility Deficits, ADL Deficits, Cognitive Impairments 6 Clicks: Daily Activity Putting on and taking off regular lower body clothing?: Total Bathing (including washing, rinsing, drying)?: A lot Toileting, which includes using toilet, bedpan or urinal?: Total Putting on and taking off regular upper body clothing?: A lot Taking care of personal grooming such as brushing teeth?: A little Eating meals?: A little Scoring Daily Activity Raw Score: 12 CMS G Code Modifier: CL Therapy Plan Need for skilled Occupational Therapy to address deficits in ADL independence and functional mobility due to a status decline resulting from lymphedema. OT Treatment/Interventions: ADL retraining, Functional transfer training, UE strengthening/ROM, Endurance training, Cognitive reorientation, Patient/family training, Equipment eval/education, Balance, Home management, Compensatory technique education, Functional activities, Neuromuscular reeducation OT Frequency: 4-5days/week OT Duration: 10 days Assessment Patient Assessment Therapy Problem List: Decreased ADL status, Decreased balance, Decreased endurance, Decreased high-level ADLs, Decreased mobility, Decreased self-care trans, Decreased LE ROM, Decreased LE strength, Decreased UE strength Patient Response to Treatment: Slow progress, decreased activity tolerance Mood/Affect: Appropriate for circumstances Rehab Prognosis: Fair, Guarded, With continued OT status post acute discharge Visit RN Communication: Yes Medical Record Reviewed: Yes OT Type of Visit: Treatment Precautions Activity: early mobility pass; ok to treat per Kathy HUTCHISON Equipment: Maxi-Marty, air cushion for chair, nj Weight Bearing Status: Assumed NWB R UE due to wrist splint/brace. Patient reports inability to bear weight on R UE. fracture of R wrist patient seen 10/19 in ortho office : Dr. Ortiz was present and provided plan of care. At this stage 7+ weeks after injury recommendation is splint ROM fingers and elbow Follow up in 6 weeks with repeat films, consider surgical intervention at that time. Weight Bearing Percent: ( limit weightbearing through feet for wound healing. per poditary) Telemetry/Extension Edger: Yes Oxygen Used: room air Other: fall risk, multiple wounds on bilteral LE's. was recently admitted here to hospital around 10/26/24 Subjective Occupational Therapy Comments: that other aide is a [employer] worker Pain Assessment Pain Assessment: (intermitten LE pain with movement, does not rate, calls out at time) ADL / IADL Eating Assistance: Setup Grooming Assistance: Total assist (for shampoo cap and to brush hair due to many tangles) Bathing/Showering Assistance: Max assist, Total assist Bathing/Showering Deficit: Left lower leg including foot, Right lower leg including foot, Left upper leg, Right upper leg, Buttocks, Perineal area, Abdomen, Left arm, Right arm, Chest, Increased time to complete , Supervision/safety, Verbal cueing, Steadying (completes while supine, rolling L to from R multiple times) Toilet/Commode Assistance: Total assist (nj) UE Dressing Assistance: Mod assist (don/dof gown) LE Dressing Assistance: Total assist LE Dressing Deficit: Don/doff brief Hearing / Speech / Vision Hearing: Within Functional Limits Speech: Within Functional Limits Current Vision: No visual deficits Bed Mobility Rolling: Max assist (several times L to from during ADLS tasks) Transfers Bed to Chair: Total assist (maxi marty , bed to chair) Activity Tolerance Endurance: Tolerates <30 minutes activity WITHOUT vital sign changes Plan Occupational Therapy Care Plan Occupational Therapy Care Plan (Active) Template: OT - Occupational Therapy Problem: Activity Tolerance Dates: Start: 11/10/24 Disciplines: OT Goal: Tolerate > 30 minutes of activity WITH rest breaks Dates: Start: 11/10/24 Expected End: 11/19/24 Description: Goal Description:patient to engage in activities of choice with out changes in vitals in order to promote return to prior level of function Disciplines: OT Outcomes Date/Time User Outcome 11/13/24 1058 Reshma Vivas OTR/Orlin Progressing Goal Note filed on 11/13/24 105 by Reshma Vivas OTR/L Evaluation of progress towards goal: tolerates ADLS Problem: Other (Customize) Dates: Start: 11/10/24 Disciplines: OT Goal: Improve Dates: Start: 11/10/24 Expected End: 11/19/24 Description: Goal Description:Patient to increase IND in ADls to min assist while adhering to NWB of R UE in order to promote return to prior level of function and decrease healthcare marketer burden Disciplines: OT Goal Note filed on 11/13/24 1058 by Reshma Vivas OTR/L Evaluation of progress towards goal: max/ total assist for sponge bath Problem: Standing Balance Dates: Start: 11/10/24 Disciplines: OT Goal: Improve balance to good Dates: Start: 11/10/24 Expected End: 11/19/24 Description: OT to assess to further develop plan of care Disciplines: OT Outcomes Date/Time User Outcome 11/13/24 1058 Reshma Vivas OTR/Orlin Not Progressing Goal Note filed on 11/13/24 1058 by Reshma Vivas OTR/Orlin Evaluation of progress towards goal: use of lift Problem: Strength Dates: Start: 11/10/24 Disciplines: OT Goal: Improve strength Dates: Start: 11/10/24 Expected End: 11/19/24 Description: Of extremity/ location:pt to increase BUE strength ( excluding R wrist) to 4/5 to assist with increased independence in ADL tasks Disciplines: OT Occupational Therapy Care Plan (Resolved) There are no resolved problems. Principal Problem: Pressure injury of right heel, unstageable [place] Active Problems: Lymphedema Diabetes mellitus type I (CMS-HCC) Hyperkalemia Hypothyroid PVD (peripheral vascular disease) Hyponatremia Venous stasis ulcer of right lower leg with edema of right lower leg (CMS-HCC) Venous stasis ulcer of left lower leg with edema of left lower leg (CMS-HCC) Attempted to perform tele health visit this morning however there is an issue with the tele health device. At this time unable to do tele visit Images from the original note were not included. Tele-NephrologyTelemedicine Consult Note Consent Statement: I discussed risks, benefits, and alternatives of a real-time synchronous audiovisual consultation with the patient (and any accompanying persons) including the risks that the patient's personal health details and medical records will be discussed over real-time, synchronous, interactive video/audio/telecommunication technology, the visit will not be recorded without the express consent of both the provider and the patient, and that there are some limitations compared to [id number] evaluations. We elected to proceed. Nephrology Daily Progress Note INTERVAL HISTORY/History of present illness: Patient denies any nausea or vomiting. She is still feeling weak. She denies any dizziness or lightheadedness. PROBLEM LIST: 1. Chronic kidney disease stage IIIB. Nephrologic investigations in May of 2020 included an LUISITO screen which was positive and anti double-stranded DNA antibody titer that was elevated to 27. Rheumatoid factor less than 10. 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 A urinalysis on 05/27/2020 showed trace protein greater than 1000 mg/dL of glucose less than 1 red blood cell and 1 white blood cell per high-power field the urine protein creatinine ratio was 0.98 gram/gram predicting that in 24 hours, approximately 980 mg of protein would be excreted. Some early serologies include a C-reactive protein which was 2.0. An LUISITO screen which was positive. Anti double-stranded DNA was 27. Rheumatoid factor was less than that. A urinalysis of 04/17/2019 showed 100 mg/dL protein. Hyperkalemia October 2024 2. Type 1 diabetes mellitus 3. Hypertension 4. Hyperlipidemia 5. Hypothyroidism 6. History of distal left ureteral calculus followed by Dr. Harris. A CT scan of the abdomen pelvis on November 01, 2019 showed a left, 2 mm, ureterovesical junction stone. She was treated transiently with Flomax but stopped it because it made her feel poorly. By 09/04/2019 was felt that she had spontaneously passed the stone. 7.Osteoarthritis. Multiple joints affected, a right total knee arthroplasty has been recommended by Dr. Arevalo. 8. Cervical radiculopathy status post anterior approach diskectomy 9. History of C difficile diarrhea 10. Anemia October 2024 11. Thrombocytopenia October 2024 VITAL SIGNS TREND: Vitals: 11/12/24 1933 11/12/24 2355 11/13/24 0500 11/13/24 0801 BP: (!) 135/98 137/56 181/71 Pulse: 93 99 100 Resp: Temp: 36.8 C (98.2 F) 36.8 C (98.2 F) 36.8 C (98.3 F) TempSrc: Oral Oral Oral SpO2: 99% 98% 97% Weight: 101.8 kg (224 lb 6.4 oz) Height: INTAKE/OUTPUT: Intake/Output Summary (Last 24 hours) at 11/13/2024 0935 Last data filed at 11/13/2024 0800 Gross per 24 hour Intake 365.35 ml Output 2125 ml Net -1759.65 ml I/O this shift: In: - Out: 1300 [Urine:1300] WEIGHT: Wt Readings from Last 3 Encounters: 11/13/24 101.8 kg (224 lb 6.4 oz) 10/26/24 96.2 kg (212 lb) 09/07/24 112 kg (247 lb) [COMPLETED] cefepime (MAXIPIME) IV, 2,000 mg, intravenous, Once FOLLOWED BY cefepime (MAXIPIME) IV, 1,000 mg, intravenous, Q24H cyanocobalamin, 1,000 mcg, oral, Daily furosemide, 40 mg, oral, Q12H insulin glargine, 60 Units, subcutaneous, Daily insulin lispro, 2-10 Units, subcutaneous, With meals and nightly levothyroxine, 25 mcg, oral, Daily pantoprazole, 40 mg, oral, QAM AC pregabalin, 25 mg, oral, BID sodium chloride, 3 mL, intravenous, Q12H MARLENE dextrose 5 % in water, 100 mL/hr sodium chloride 0.9 %, 20 mL/hr PHYSICAL EXAM: Blood pressure 181/71, pulse 100, temperature 36.8 C (98.3 F), temperature source Oral, resp. rate 18, height 149.9 cm (4' 11 ), weight 101.8 kg (224 lb 6.4 oz), SpO2 97%. Temp: [36.7 C (98 F)-36.8 C (98.3 F)] 36.8 C (98.3 F) Pulse: [93-100] 100 Resp: [17-20] 18 BP: (135-181)/(56-98) 181/71 SpO2: [97 %-99 %] 97 % O2 Device: None (Room air) O2 Flow Rate (L/min): [0 L/min] 0 L/min Physical exam was based on my observation as well as nursing staff assessment General appearance she is sitting in chair and comfortable. Lungs clear to auscultation bilaterally Extremities 1 to 2+ lower extremity edema Neurological alert and awake. LABORATORY EVALUATION: Results from last 7 days Lab Units 11/13/24 0526 11/12/24 0512 11/11/24 0526 11/10/24 0528 11/09/24 1241 11/09/24 0612 SODIUM mmol/L 137 134 137 138 -- 135 POTASSIUM mmol/L 3.4* 3.5 3.9 4.4 5.2* 5.3* CHLORIDE mmol/L 103 109 101 104 -- 106 CO2 mmol/L 24 22 -- 22 BUN mg/dL 31* 37* 47* 65* -- 76* CREATININE mg/dL 1.34* 1.39* 1.64* 1.86* -- 2.35* CALCIUM mg/dL 8.4* 7.9* 8.5 8.8 -- 8.5 MAGNESIUM mg/dL 1.9 2.2 2.4 2.7* -- 2.9* PHOSPHORUS mg/dL 2.7 2.8 2.6 3.1 -- -- Results from last 7 days Lab Units 11/13/24 0526 11/12/24 0512 11/11/24 0526 11/10/24 0528 11/09/24 1241 WBC x10E9/L 10.8 11.1* 9.4 11.1* 10.5 HEMOGLOBIN g/dL 9.0* 8.6* 8.7* 9.7* 9.9* HEMATOCRIT % 26.5* 25.1* 25.8* 28.9* 29.4* PLATELETS X10E9/L 64* 37* 28* 19* 25* Results from last 7 days Lab Units 11/13/24 0526 11/12/24 0512 11/11/24 0526 11/10/24 0528 11/09/24 0612 PROTEIN TOTAL g/dL 6.4 6.3 5.9* 7.2 7.7 ALBUMIN g/dL 2.6* 2.6* 2.5* 2.9* 3.3 AST U/L 13 12 17 19 22 ALT U/L 11 14 14 15 18 No results found. IMPRESSION: Acute kidney injury on Chronic kidney disease stage IIIB likely due to prerenal factors or due to acute tubular necrosis along with adverse effects of losartan. Creatinine is down to 1.6 mg/dL Hyperkalemia in the setting of Acute Kidney Injuiry on Chronic kidney disease along with losartan use. Potassium level improved with medical therapy. Lower extremity cellulitis: Management per primary service. Anemia of chronic kidney disease.. iron studies are not consistent with iron deficiency Hypertension : Blood pressure is under good control with intermittent high readings Thrombocytopenia could be due to sepsis with marrow suppression. Hit panel is negative. LDH is normal.Haptoglobin is normal.Peripheral blood smear is pending Urinary retention: Nj catheter was inserted on 11/10/2024 as PVR was greater than 600 Hypokalemia Plan : Continue with Lasix 40 mg p.o. b.i.d. Add KCl. Replace electrolytes per scale Strict Is&Os. Keep Nj catheter for now. Patient can be discharged with Nj catheter with outpatient urology follow-up. Check basic metabolic panel and magnesium 1 week after discharge Patient can be seen our office in about 3-4 weeks after discharge Add Aldactone Kimberly Perez M.D. [facility] Thank you for your consultation and allowing us to participate in the care of Anlynne M Gutierrez and please do not hesitate to call us with any questions at: Office: [phone] Office Answering Service: [phone] Please feel free to contact me through [employer] Secure chat during the daytime hours, if no response after 5 minutes then call the answering service. This note was created with the assistance of a speech-recognition program. Although the intention is to generate a document that actually reflects the content of the visit, no guarantees can be provided that every mistake has been identified and corrected by editing. Problem: Pain Goal: Patient goal is pain score less than 4, able to rest, and participant in treatment plan as appropriate Description: INTERVENTIONS: 1. Encourage patient or legal employee representative to report early pain and ask for pain medicine when needed 2. Assess pain using appropriate pain scale and include the scale used when documenting 3. Administer analgesics based on type and severity of pain and evaluate response within appropriate time frame 4. Implement non-pharmacological measures as appropriate and evaluate response 5. Consider cultural and social influences on pain and pain management 6. Notify LIP if interventions ineffective or patient reports new pain 7. Monitor vital signs including pulse ox, end-tidal CO2 based on pain intervention 8. Reassess pain per policy 9. Teach patient or legal employee representative interventions for comforting Outcome: Progressing Note: Evaluation of progress towards goal: Denied pain at present Problem: Safety Goal: Patient will be injury free during hospitalization Description: INTERVENTIONS: 1. Assess patient's risk for falls and implement fall prevention plan of care per policy 2. Provide and maintain a safe environment 3. Proper use of double Identifiers 4. Medication administration using the 5 rights 5. Hand hygiene 6. Specimens are labeled at the bedside 7. Instruct patient/ patient employee representative about use of safety devices 8. Include patient/ patient employee representative in decisions related to safety Outcome: Progressing Note: Evaluation of progress towards goal:PT is free of falls, hourly rounding is completed, area is kept clear. Problem: Infection Goal: Absence of infection during hospitalization Description: INTERVENTIONS 1. Assess and monitor for signs and symptoms of infection. 2. Monitor lab/diagnostic results. 3. Monitor all insertion sites i.e., indwelling lines, tubes and drains. 4. Monitor endotracheal (as able) and nasal secretions for changes in amount and color. 5. Administer medications as ordered. 6. Instruct and encourage patient and family to use good hand hygiene technique. 7. Identify and instruct patient/patient employee representative in use of appropriate isolation precautions for identified infection/symptoms. 8. Provide and discuss with patient/patient employee representative on educational MDRO sheet. 9. Encourage and monitor nutritional status daily and consult mine inspector if indicated. 10. Implement neutropenic guidelines as needed. Outcome: Progressing Note: Evaluation of progress towards goal: Pt assessed and monitored for signs and symptoms of infection, lab and diagnostic results monitored as needed, administer medications as needed. Problem: Knowledge Deficit Goal: Patient/patient employee representative demonstrates understanding of disease process, treatment plan, medications, and discharge instructions Description: INTERVENTIONS 1. Complete learning assessment and assess knowledge base 2. Provide teaching at level of understanding 3. Provide teaching via preferred learning method(s) Outcome: Progressing Note: Evaluation of progress towards goal: Learning assessment and knowledge base assessed, teaching provided at an understandable level as needed. Problem: Discharge Planning Goal: Discharge to post-acute care, other facility, or home with appropriate resources Description: Patient's goal is: INTERVENTIONS 1. Conduct assessment to determine patient/family and health care team treatment goals, and need for post-acute services based on payer coverage, community resources, and patient preferences, and barriers to discharge 2. Coordinate with Social work, Care Navigation, and Utilization Review to arrange appropriate level of services according to patient's needs based on patient preference and payer coverage in collaboration with the physician and health care team 3. Address psychosocial, clinical, and financial barriers to discharge as identified in assessment in conjunction with the patient/family and health care team 4. Consult appropriate ancillary services (i.e.. PT/OT/ST, etc) as needed 5. Communicate with and update the patient/family, physician, and health care team regarding progress on the discharge plan 6. Identify discharge learning needs (meds, wound care, etc). 7. Arrange for needed discharge transportation as appropriate Outcome: Progressing Note: Evaluation of progress towards goal: Pt discharge initiated with attending provider, Pt/Family communicated with and updated regarding process on discharge as needed. Problem: Pain Goal: Patient goal is pain score less than 4, able to rest, and participant in treatment plan as appropriate Description: INTERVENTIONS: 1. Encourage patient or legal employee representative to report early pain and ask for pain medicine when needed 2. Assess pain using appropriate pain scale and include the scale used when documenting 3. Administer analgesics based on type and severity of pain and evaluate response within appropriate time frame 4. Implement non-pharmacological measures as appropriate and evaluate response 5. Consider cultural and social influences on pain and pain management 6. Notify LIP if interventions ineffective or patient reports new pain 7. Monitor vital signs including pulse ox, end-tidal CO2 based on pain intervention 8. Reassess pain per policy 9. Teach patient or legal employee representative interventions for comforting Outcome: Progressing Note: Evaluation of progress towards goal: Problem: Safety Goal: Patient will be injury free during hospitalization Description: INTERVENTIONS: 1. Assess patient's risk for falls and implement fall prevention plan of care per policy 2. Provide and maintain a safe environment 3. Proper use of double Identifiers 4. Medication administration using the 5 rights 5. Hand hygiene 6. Specimens are labeled at the bedside 7. Instruct patient/ patient employee representative about use of safety devices 8. Include patient/ patient employee representative in decisions related to safety Outcome: Progressing Note: Evaluation of progress towards goal: Problem: Pain Goal: Patient goal is pain score less than 4, able to rest, and participant in treatment plan as appropriate Description: INTERVENTIONS: 1. Encourage patient or legal employee representative to report early pain and ask for pain medicine when needed 2. Assess pain using appropriate pain scale and include the scale used when documenting 3. Administer analgesics based on type and severity of pain and evaluate response within appropriate time frame 4. Implement non-pharmacological measures as appropriate and evaluate response 5. Consider cultural and social influences on pain and pain management 6. Notify LIP if interventions ineffective or patient reports new pain 7. Monitor vital signs including pulse ox, end-tidal CO2 based on pain intervention 8. Reassess pain per policy 9. Teach patient or legal employee representative interventions for comforting Outcome: Progressing Note: Evaluation of progress towards goal: DISCHARGE PLANNING NOTE Rupa Gutierrez Patient is planned to discharge to longterm facility. Follow up appointments added to the patient's AVS/CRF for the longterm facility to schedule. Nursing Home Facility, please call and schedule the following appointments: [facility] for nj catheter at discharge follow up. Phone number: [phone] [facility] for an appointment in 3-4 weeks. Phone number: [phone] Please make sure patient has appointments to follow up with the [facility] at [phone] - Cintia Bhakta RN 11/12/24 1:28 PM Problem: Pain Goal: Patient goal is pain score less than 4, able to rest, and participant in treatment plan as appropriate Description: INTERVENTIONS: 1. Encourage patient or legal employee representative to report early pain and ask for pain medicine when needed 2. Assess pain using appropriate pain scale and include the scale used when documenting 3. Administer analgesics based on type and severity of pain and evaluate response within appropriate time frame 4. Implement non-pharmacological measures as appropriate and evaluate response 5. Consider cultural and social influences on pain and pain management 6. Notify LIP if interventions ineffective or patient reports new pain 7. Monitor vital signs including pulse ox, end-tidal CO2 based on pain intervention 8. Reassess pain per policy 9. Teach patient or legal employee representative interventions for comforting Outcome: Progressing Note: Evaluation of progress towards goal: Pt educated on treatment plan, will continue to update pt prn. All questions answered at this time. Images from the original note were not included. Tele-NephrologyTelemedicine Consult Note Consent Statement: I discussed risks, benefits, and alternatives of a real-time synchronous audiovisual consultation with the patient (and any accompanying persons) including the risks that the patient's personal health details and medical records will be discussed over real-time, synchronous, interactive video/audio/telecommunication technology, the visit will not be recorded without the express consent of both the provider and the patient, and that there are some limitations compared to [id number] evaluations. We elected to proceed. Nephrology Daily Progress Note INTERVAL HISTORY/History of present illness: Patient denies any nausea or vomiting. She is sleepy. She did not sleep well last night. She is sitting in chair. No events overnight otherwise. PROBLEM LIST: 1. Chronic kidney disease stage IIIB. Nephrologic investigations in May of 2020 included an LUISITO screen which was positive and anti double-stranded DNA antibody titer that was elevated to 27. Rheumatoid factor less than 10. 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 A urinalysis on 05/27/2020 showed trace protein greater than 1000 mg/dL of glucose less than 1 red blood cell and 1 white blood cell per high-power field the urine protein creatinine ratio was 0.98 gram/gram predicting that in 24 hours, approximately 980 mg of protein would be excreted. Some early serologies include a C-reactive protein which was 2.0. An LUISITO screen which was positive. Anti double-stranded DNA was 27. Rheumatoid factor was less than that. A urinalysis of 04/17/2019 showed 100 mg/dL protein. Hyperkalemia October 2024 2. Type 1 diabetes mellitus 3. Hypertension 4. Hyperlipidemia 5. Hypothyroidism 6. History of distal left ureteral calculus followed by Dr. Harris. A CT scan of the abdomen pelvis on November 01, 2019 showed a left, 2 mm, ureterovesical junction stone. She was treated transiently with Flomax but stopped it because it made her feel poorly. By 09/04/2019 was felt that she had spontaneously passed the stone. 7.Osteoarthritis. Multiple joints affected, a right total knee arthroplasty has been recommended by Dr. Arevalo. 8. Cervical radiculopathy status post anterior approach diskectomy 9. History of C difficile diarrhea 10. Anemia October 2024 11. Thrombocytopenia October 2024 VITAL SIGNS TREND: Vitals: 11/11/24 1900 11/11/24 2300 11/12/24 0532 11/12/24 0754 BP: 132/56 156/76 134/58 Pulse: 86 99 97 Resp: 18 18 Temp: 36.9 C (98.4 F) 37.1 C (98.8 F) 36.7 C (98.1 F) TempSrc: Oral Oral Oral SpO2: 98% 98% Weight: 103.4 kg (228 lb) Height: INTAKE/OUTPUT: Intake/Output Summary (Last 24 hours) at 11/12/2024 1031 Last data filed at 11/12/2024 0800 Gross per 24 hour Intake 660 ml Output 1300 ml Net -640 ml I/O this shift: In: 180 [P.O.:180] Out: 450 [Urine:450] WEIGHT: Wt Readings from Last 3 Encounters: 11/12/24 103.4 kg (228 lb) 10/26/24 96.2 kg (212 lb) 09/07/24 112 kg (247 lb) [COMPLETED] cefepime (MAXIPIME) IV, 2,000 mg, intravenous, Once FOLLOWED BY cefepime (MAXIPIME) IV, 1,000 mg, intravenous, Q24H cyanocobalamin, 1,000 mcg, oral, Daily furosemide, 40 mg, oral, Daily insulin glargine, 60 Units, subcutaneous, Daily insulin lispro, 2-10 Units, subcutaneous, With meals and nightly levothyroxine, 25 mcg, oral, Daily pantoprazole, 40 mg, oral, QAM AC pregabalin, 25 mg, oral, BID sodium chloride, 3 mL, intravenous, Q12H MARLENE dextrose 5 % in water, 100 mL/hr sodium chloride 0.9 %, 20 mL/hr PHYSICAL EXAM: Blood pressure 134/58, pulse 97, temperature 36.7 C (98.1 F), temperature source Oral, resp. rate 18, height 149.9 cm (4' 11 ), weight 103.4 kg (228 lb), SpO2 98%. Temp: [36.7 C (98 F)-37.1 C (98.8 F)] 36.7 C (98.1 F) Pulse: [86-102] 97 Resp: [18-22] 18 BP: (115-156)/(56-76) 134/58 SpO2: [97 %-98 %] 98 % O2 Device: None (Room air) O2 Flow Rate (L/min): [0 L/min] 0 L/min Physical exam was based on my observation as well as nursing staff assessment General appearance she is sitting in chair and comfortable. Lungs clear to auscultation bilaterally Extremities 1+ edema. Neurological alert and awake. LABORATORY EVALUATION: Results from last 7 days Lab Units 11/12/24 0511/11/24 0511/10/24 0528 11/09/24 1241 11/09/24 0611/08/24 1622 11/08/24 1320 SODIUM mmol/L 134 137 138 -- 135 -- 132* POTASSIUM mmol/L 3.5 3.9 4.4 5.2* 5.3* < > 5.5* CHLORIDE mmol/L 109 101 104 -- 106 -- 101 CO2 mmol/L 25 24 22 -- 22 -- 22 BUN mg/dL 37* 47* 65* -- 76* -- 81* CREATININE mg/dL 1.39* 1.64* 1.86* -- 2.35* -- 2.67* CALCIUM mg/dL 7.9* 8.5 8.8 -- 8.5 -- 8.7 MAGNESIUM mg/dL 2.2 2.4 2.7* -- 2.9* -- 2.9* PHOSPHORUS mg/dL 2.8 2.6 3.1 -- -- -- -- < > = values in this interval not displayed. Results from last 7 days Lab Units 11/12/24 0511/11/24 0511/10/24 0511/09/24 12411/09/24 0633 WBC x10E9/L 11.1* 9.4 11.1* 10.5 11.2* HEMOGLOBIN g/dL 8.6* 8.7* 9.7* 9.9* 10.0* HEMATOCRIT % 25.1* 25.8* 28.9* 29.4* 30.0* PLATELETS X10E9/L 37* 28* 19* 25* 27* Results from last 7 days Lab Units 11/12/24 0511/11/24 0511/10/24 0528 11/09/24 0611/08/24 1320 PROTEIN TOTAL g/dL 6.3 5.9* 7.2 7.7 7.2 ALBUMIN g/dL 2.6* 2.5* 2.9* 3.3 3.3 AST U/L 12 17 19 22 26 ALT U/L 14 14 15 18 14 MR foot right without contrast Result Date: 11/11/2024 History: Pain.Swelling. Edema MRI Right Foot Comparison: Technique: Multiplanar multisequence imaging of the foot was obtained without contrast. Findings/impression: Study is significantly degraded by motion artifact. Patient had involuntary motion and could not tolerate the examination. The examination was prematurely terminated. Based on the sequences obtained no obvious evidence of osteomyelitis is seen involving the metatarsals or digits. No joint effusion. Nonspecific soft tissue edema is noted dorsally but also along the plantar aspect. Please correlate with the clinical picture.. If in the future the patient tolerated imaging we would be happy reimage the patient. No obvious evidence of abscess. Hampered study Finalized by Dinorah Kaur MD on 11/11/2024 2:06 PM IMPRESSION: Acute kidney injury on Chronic kidney disease stage IIIB likely due to prerenal factors or due to acute tubular necrosis along with adverse effects of losartan. Creatinine is down to 1.6 mg/dL Hyperkalemia in the setting of Acute Kidney Injuiry on Chronic kidney disease along with losartan use. Potassium level improved with medical therapy. Lower extremity cellulitis: Management per primary service. Anemia of chronic kidney disease.. iron studies are not consistent with iron deficiency Hypertension : Blood pressure is under good control with intermittent high readings Thrombocytopenia could be due to sepsis with marrow suppression. Hit panel is negative. LDH is normal.Haptoglobin is normal.Peripheral blood smear is pending Urinary retention: Nj catheter was inserted on 11/10/2024 as PVR was greater than 600 Plan : Increase Lasix to 40 mg p.o. q.12h hours Strict Is&Os. Keep Nj catheter for now. Patient can be discharged with Nj catheter with outpatient urology follow-up. Check basic metabolic panel and magnesium 1 week after discharge Patient can be seen our office in about 3-4 weeks after discharge Kimberly Perez M.D. [facility] Thank you for your consultation and allowing us to participate in the care of Rupa Youngblood Gutierrez and please do not hesitate to call us with any questions at: Office: [phone] Office Answering Service: [phone] Please feel free to contact me through [employer] chat during the daytime hours, if no response after 5 minutes then call the answering service. This note was created with the assistance of a speech-recognition program. Although the intention is to generate a document that actually reflects the content of the visit, no guarantees can be provided that every mistake has been identified and corrected by editing. Query Response Note AUTOMATED QUERY TEXT: Type of Heart Failure: This query seeks further clarification of documentation to reflect all conditions that you are monitoring, evaluating, treating or that extend hospitalization or utilize additional resources. Please utilize your independent clinical judgment when addressing the question(s) below. Please provide further specificity, if known. Clinical indicators include: leg swelling, chf (congestive heart failure, edema, furosemide, lasix, shortness of breath, swelling, lower extremity swelling, lower extremity edema, effusion Options provided: -- Systolic heart failure [HFrEF] -- Diastolic heart failure [HFpEF] -- Systolic and diastolic heart failure [HFrEF and HFpEF] -- Biventricular heart failure -- High output heart failure -- End stage heart failure -- Other - I will add my own diagnosis -- Dismiss - Not applicable / Not valid AUTOMATED QUERY RESPONSE TEXT: Provider dismissed this query because it was not applicable to the patient or not a valid query. i didn't treat her for this. Electronically signed by: Eliseo Moody MD 11/12/2024 9:31 AM Physical Therapy Treatment Discharge Recommendations for Safe Patient Transition Discharge Recommendations: Post acute - moderate Post Acute Moderate Rehab Needs: Recommend moderate intensity rehab, Tolerate 1-2 hrs of therapy 3-5 days/wk, Subacute or chronic functional impairment (Continued PT to imrpove independence with bed mobility and transfers with most appropriate device and limited weightbearing in feet for wound healing and R. wrist do to fracture.) Current Impairments Informing Therapy Recommendation: Ambulation status/safety, Cognition, Fall risk, ADL status, Endurance level Derrick Worker Well Service Support for-: Mobility Deficits, ADL Deficits, Cognitive Impairments 6 Clicks: Basic Mobility Turning from your back to your side while in a flat bed without using bed rails?: A lot Moving from lying on your back to sitting on side of flat bed without using bed rails?: A lot Moving to and from bed to a chair (including w/c)?: A lot Standing up from a chair using your arms (e.g. w/c or bedside chair)?: A lot To walk in hospital room?: Total Climbing 3-5 steps with a railing?: Total Scoring 6 Clicks: Basic Mobility Raw Score: 10 CMS G Code Modifier: CL Therapy Plan Need for skilled Physical Therapy to address deficits in functional mobility due to a status decline resulting from lymphedema, LE wounds. PT Treatment/Interventions: Functional transfer training, LE strengthening/ROM, Endurance training, Balance, Bed mobility, Gait training, Functional activities, Neuromuscular reeducation PT Frequency: 5-6days/week PT Duration: 10 days Assessment Patient Assessment Therapy Problem List: Decreased ADL status, Decreased balance, Decreased endurance, Decreased high-level ADLs, Decreased mobility, Decreased self-care trans, Decreased LE ROM, Decreased LE strength, Decreased UE strength Patient Response to Treatment: Progressing toward goals (slow progress do to limiting weightbearing on feet for wound healing and R. UE do to wrist fracture.) Mood/Affect: Appropriate for circumstances Rehab Prognosis: Fair, Guarded, With continued PT status post acute discharge Visit RN Communication: Yes Medical Record Reviewed: Yes PT Type of Visit: Treatment Precautions Activity: early mobility pass; ok to treat per Ermias HUTCHISON Equipment: Maxi-Marty, air cushion for chair, nj Weight Bearing Status: Assumed NWB R UE due to wrist splint/brace. Patient reports inability to bear weight on R UE. fracture of R wrist patient seen 10/19 in ortho office : Dr. Ortiz was present and provided plan of care. At this stage 7+ weeks after injury recommendation is splint ROM fingers and elbow Follow up in 6 weeks with repeat films, consider surgical intervention at that time. Weight Bearing Percent: ( limit weightbearing through feet for wound healing. ) Telemetry/Extension Edger: Yes Oxygen Used: room air Subjective Physical Therapy Comments: I just want to get up. Pain Assessment Pain Assessment: 0-10 Pain Score: (No complaints of pain at rest.) Hearing / Speech / Vision Hearing: Within Functional Limits Speech: Within Functional Limits Current Vision: No visual deficits Cognition Orientation Level: Oriented to place, Oriented to person, Disoriented to time Bed Mobility Supine to Sit: (MAX A x 2, use of maxi marty) Transfers Sit to Stand: (Did not attempt, no platform walker available in room and patient NWB on R. wrist. Use of MAXI MARTY to transfer.) Balance Sitting Balance: Static: Good Sitting Balance: Dynamic: Good 11/12/24 0917 LE Supine LE supine exercises performed? Yes Ankle pumps x 10 bilaterally (limited range do to edema) Gluteal sets x 10 with 3 hold Quad sets x 10 with 3 hold Hip abduction x 10 with MIN A bilaterally Leg raises x 10 with MIN A bilaterally, partial ROM Activity Tolerance Endurance: Tolerates <30 minutes activity WITHOUT vital sign changes Plan Physical Therapy Care Plan Physical Therapy Care Plan (Active) Template: PT - Physical Therapy Problem: Activity Tolerance Dates: Start: 11/09/24 Disciplines: PT Goal: Tolerate 30 minutes of activity WITH rest breaks Dates: Start: 11/09/24 Expected End: 11/18/24 Description: Goal Description: to improve LE strength and ability to participate in transfer training. Disciplines: PT Outcomes Date/Time User Outcome 11/12/24 1526 Kalyn Garrido PT Progressing Goal Note filed on 11/12/24 1526 by Kalyn Garrido PT Evaluation of progress towards goal: tolerates 17 minutes of exercise this date. Problem: Bed Mobility Dates: Start: 11/09/24 Disciplines: PT Goal: Patient will perform bed mobility with Maximum Assist Dates: Start: 11/09/24 Expected End: 11/18/24 Description: Goal Description: and hospital bed functions do to improving LE strength and LE edema. Disciplines: PT Problem: Transfers Dates: Start: 11/09/24 Disciplines: PT Goal: Patient will perform transfers with Maximum Assist Dates: Start: 11/09/24 Expected End: 11/18/24 Description: Goal Description: and use of platform walker vs. Hemiwalker to improve ability to transfer to chair, bedside commode, and w/c. Disciplines: PT Physical Therapy Care Plan (Resolved) There are no resolved problems. Principal Problem: Pressure injury of right heel, unstageable ([facility]) Active Problems: Lymphedema Diabetes mellitus type I (CMS-HCC) Hyperkalemia Hypothyroid PVD (peripheral vascular disease) Hyponatremia Venous stasis ulcer of right lower leg with edema of right lower leg (CMS-HCC) Venous stasis ulcer of left lower leg with edema of left lower leg (CMS-HCC) Ongoing Assessment for Discharge Needs Reviewed discharge milestones and patient needs related to discharge plan. Current estimated discharge date of November 11, 2024 has been reviewed by treatment team. Ongoing Assessment for Discharge Needs Flowsheet Row Most Recent Value Services Requested Patient expects to be discharged to: return to [facility] for longterm stay Does the patient wish to have family/friend/caregiver involved in their discharge planning? Yes Does the patient plan to return home to a community setting? No, patient to discharge to facility-based provider. See Discharge Disposition Discharge Disposition Skilled Return Skilled Return Name [place] Skilled Return Skilled Return Does the patient need discharge transportation arranged? Yes Patient choice offered Patient declined List Provided Patient declined Patient Declined Active with Provider DC Planning Complete Discharge Milestones Yes Clinical updates to include wound care note, podiatry, nephrology & hematology consult notes sent to [employer] via [employer]. [place] inquiring if pt will DC on IV AB; informed SNF newspaper writer would update after morning Daily Transition Rounds. Care Navigation will continue to follow patient progress to determine appropriate safe care transition needs. 10:58: Update from [facility], pt will need 14 days IV Cefepime; PICC line will be placed. Industrial Ecology Technician sent message to [employer] via [employer] to update. Industrial Ecology Technician met with pt, plan remains to DC back to [place] [facility] for longterm. opportunity provided to ask questions, pt does not endorse any at this time. 11:45 Per [employer] message [place] is able to provide IV AB. Ongoing Assessment for Discharge Needs Reviewed discharge milestones and patient needs related to discharge plan. Current estimated discharge date of November 11, 2024 has been reviewed by treatment team. Ongoing Assessment for Discharge Needs Flowsheet Row Most Recent Value Services Requested Patient expects to be discharged to: return to [facility] for longterm stay Does the patient wish to have family/friend/caregiver involved in their discharge planning? Yes Does the patient plan to return home to a community setting? No, patient to discharge to facility-based provider. See Discharge Disposition Discharge Disposition Skilled Return Skilled Return Name [facility] Skilled Return Skilled Return Does the patient need discharge transportation arranged? Yes Patient choice offered Patient declined List Provided Patient declined Patient Declined Active with Provider DC Planning Complete Discharge Milestones Yes Sent today's medical note to [facility]; anticipate DC tomorrow. Care Navigation will continue to follow patient progress to determine appropriate safe care transition needs. Physical Therapy PT Type of Visit: (P) (Patient sleeping in recliner. Unable to get patient to waken and participate in exercise at this time. Will re-attempt as able.) Will continue to follow patient. Problem: Pain Goal: Patient goal is pain score less than 4, able to rest, and participant in treatment plan as appropriate Description: INTERVENTIONS: 1. Encourage patient or legal employee representative to report early pain and ask for pain medicine when needed 2. Assess pain using appropriate pain scale and include the scale used when documenting 3. Administer analgesics based on type and severity of pain and evaluate response within appropriate time frame 4. Implement non-pharmacological measures as appropriate and evaluate response 5. Consider cultural and social influences on pain and pain management 6. Notify LIP if interventions ineffective or patient reports new pain 7. Monitor vital signs including pulse ox, end-tidal CO2 based on pain intervention 8. Reassess pain per policy 9. Teach patient or legal employee representative interventions for comforting Outcome: Progressing Note: Evaluation of progress towards goal: Pt able to report pain according to 0/10 pain scale. Medicating patient for pain per orders. Problem: Safety Goal: Patient will be injury free during hospitalization Description: INTERVENTIONS: 1. Assess patient's risk for falls and implement fall prevention plan of care per policy 2. Provide and maintain a safe environment 3. Proper use of double Identifiers 4. Medication administration using the 5 rights 5. Hand hygiene 6. Specimens are labeled at the bedside 7. Instruct patient/ patient employee representative about use of safety devices 8. Include patient/ patient employee representative in decisions related to safety Outcome: Progressing Note: Evaluation of progress towards goal: Safety measures and hourly rounding in place. Pt remains free of falls and injury at this time. Will continue to monitor. Problem: Knowledge Deficit Goal: Patient/patient employee representative demonstrates understanding of disease process, treatment plan, medications, and discharge instructions Description: INTERVENTIONS 1. Complete learning assessment and assess knowledge base 2. Provide teaching at level of understanding 3. Provide teaching via preferred learning method(s) Outcome: Progressing Note: Evaluation of progress towards goal: POC discussed with patient. Questions answered PRN. Problem: Discharge Planning Goal: Discharge to post-acute care, other facility, or home with appropriate resources Description: Patient's goal is: INTERVENTIONS 1. Conduct assessment to determine patient/family and health care team treatment goals, and need for post-acute services based on payer coverage, community resources, and patient preferences, and barriers to discharge 2. Coordinate with Social work, Care Navigation, and Utilization Review to arrange appropriate level of services according to patient's needs based on patient preference and payer coverage in collaboration with the physician and health care team 3. Address psychosocial, clinical, and financial barriers to discharge as identified in assessment in conjunction with the patient/family and health care team 4. Consult appropriate ancillary services (i.e.. PT/OT/ST, etc) as needed 5. Communicate with and update the patient/family, physician, and health care team regarding progress on the discharge plan 6. Identify discharge learning needs (meds, wound care, etc). 7. Arrange for needed discharge transportation as appropriate Outcome: Progressing Note: Evaluation of progress towards goal: Pt will be discharged to post acute care, other facility or home with appropriate resources. Images from the original note were not included. Tele-NephrologyTelemedicine Consult Note Consent Statement: I discussed risks, benefits, and alternatives of a real-time synchronous audiovisual consultation with the patient (and any accompanying persons) including the risks that the patient's personal health details and medical records will be discussed over real-time, synchronous, interactive video/audio/telecommunication technology, the visit will not be recorded without the express consent of both the provider and the patient, and that there are some limitations compared to [id number] evaluations. We elected to proceed. Nephrology Daily Progress Note INTERVAL HISTORY/History of present illness: Patient denies new complaints. States sitting in chair and comfortable. PROBLEM LIST: 1. Chronic kidney disease stage IIIB. Nephrologic investigations in May of 2020 included an LUISITO screen which was positive and anti double-stranded DNA antibody titer that was elevated to 27. Rheumatoid factor less than 10. 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 A urinalysis on 05/27/2020 showed trace protein greater than 1000 mg/dL of glucose less than 1 red blood cell and 1 white blood cell per high-power field the urine protein creatinine ratio was 0.98 gram/gram predicting that in 24 hours, approximately 980 mg of protein would be excreted. Some early serologies include a C-reactive protein which was 2.0. An LUISITO screen which was positive. Anti double-stranded DNA was 27. Rheumatoid factor was less than that. A urinalysis of 04/17/2019 showed 100 mg/dL protein. Hyperkalemia October 2024 2. Type 1 diabetes mellitus 3. Hypertension 4. Hyperlipidemia 5. Hypothyroidism 6. History of distal left ureteral calculus followed by Dr. Harris. A CT scan of the abdomen pelvis on November 01, 2019 showed a left, 2 mm, ureterovesical junction stone. She was treated transiently with Flomax but stopped it because it made her feel poorly. By 09/04/2019 was felt that she had spontaneously passed the stone. 7.Osteoarthritis. Multiple joints affected, a right total knee arthroplasty has been recommended by Dr. Arevalo. 8. Cervical radiculopathy status post anterior approach diskectomy 9. History of C difficile diarrhea 10. Anemia October 2024 11. Thrombocytopenia October 2024 VITAL SIGNS TREND: Vitals: 11/10/24 2308 11/11/24 0440 11/11/24 0615 11/11/24 0738 BP: 156/62 121/56 150/55 Pulse: 103 98 100 Resp: 18 18 20 Temp: 36.8 C (98.3 F) 36.8 C (98.2 F) 36.7 C (98 F) TempSrc: Oral Oral Oral SpO2: 97% 98% Weight: 102.9 kg (226 lb 12.8 oz) Height: INTAKE/OUTPUT: Intake/Output Summary (Last 24 hours) at 11/11/2024 0858 Last data filed at 11/11/2024 0620 Gross per 24 hour Intake 1020 ml Output 2700 ml Net -1680 ml No intake/output data recorded. WEIGHT: Wt Readings from Last 3 Encounters: 11/11/24 102.9 kg (226 lb 12.8 oz) 10/26/24 96.2 kg (212 lb) 09/07/24 112 kg (247 lb) [COMPLETED] cefepime (MAXIPIME) IV, 2,000 mg, intravenous, Once FOLLOWED BY cefepime (MAXIPIME) IV, 1,000 mg, intravenous, Q24H furosemide, 40 mg, oral, Daily insulin glargine, 60 Units, subcutaneous, Daily insulin lispro, 2-10 Units, subcutaneous, With meals and nightly levothyroxine, 25 mcg, oral, Daily pantoprazole, 40 mg, oral, QAM AC pregabalin, 25 mg, oral, BID sodium chloride, 3 mL, intravenous, Q12H MARLENE vancomycin, , intravenous, Dosed by Levels dextrose 5 % in water, 100 mL/hr sodium chloride 0.9 %, 20 mL/hr PHYSICAL EXAM: Blood pressure 150/55, pulse 100, temperature 36.7 C (98 F), temperature source Oral, resp. rate 20, height 149.9 cm (4' 11 ), weight 102.9 kg (226 lb 12.8 oz), SpO2 98%. Temp: [36.4 C (97.6 F)-36.8 C (98.3 F)] 36.7 C (98 F) Pulse: [98-105] 100 Resp: [18-20] 20 BP: (121-156)/(49-73) 150/55 SpO2: [96 %-98 %] 98 % O2 Device: None (Room air) O2 Flow Rate (L/min): [0 L/min] 0 L/min Physical exam was based on my observation as well as nursing staff assessment General appearance she is sitting in chair and comfortable. Lungs clear to auscultation bilaterally Extremities 1+ edema. Neurological alert and awake. LABORATORY EVALUATION: Results from last 7 days Lab Units 11/11/2452511/10/24 0528 11/09/24 1241 11/09/24 0612 11/08/24 1622 11/08/24 1320 SODIUM mmol/L 137 138 -- 135 -- 132* POTASSIUM mmol/L 3.9 4.4 5.2* 5.3* 5.3* 5.5* CHLORIDE mmol/L 101 104 -- 106 -- 101 CO2 mmol/L 24 22 -- 22 -- 22 BUN mg/dL 47* 65* -- 76* -- 81* CREATININE mg/dL 1.64* 1.86* -- 2.35* -- 2.67* CALCIUM mg/dL 8.5 8.8 -- 8.5 -- 8.7 MAGNESIUM mg/dL 2.4 2.7* -- 2.9* -- 2.9* PHOSPHORUS mg/dL 2.6 3.1 -- -- -- -- Results from last 7 days Lab Units 11/11/2452511/10/2452711/09/24 1241 11/09/24 0633 11/08/24 1320 WBC x10E9/L 9.4 11.1* 10.5 11.2* 13.1* HEMOGLOBIN g/dL 8.7* 9.7* 9.9* 10.0* 10.1* HEMATOCRIT % 25.8* 28.9* 29.4* 30.0* 30.1* PLATELETS X10E9/L 28* 19* 25* 27* 204 Results from last 7 days Lab Units 11/11/2452511/10/2452711/09/24 0611/08/24 1320 PROTEIN TOTAL g/dL 5.9* 7.2 7.7 7.2 ALBUMIN g/dL 2.5* 2.9* 3.3 3.3 AST U/L 17 19 22 26 ALT U/L 14 15 18 14 MR lower leg right without contrast Result Date: 11/10/2024 MRI right lower leg without contrast HISTORY: Infection, osteomyelitis. COMPARISON: None available TECHNIQUE: Multiplanar, multisequence MR imaging was performed according to standard protocol. Incomplete exam due to patient intolerance. FINDINGS: Regions of skin thickening, edematous changes of the lower legs bilaterally without drainable fluid collection. No fracture or malalignment. No evidence of osteomyelitis. IMPRESSION: 1. Findings of cellulitis, no abscess, no evidence of osteomyelitis. Finalized by Chaka Patel MD on 11/10/2024 1:33 PM MR lower leg left without contrast Result Date: 11/10/2024 MR LOWER LEG LT WO CONT CLINICAL INFORMATION: suspected osteomyelitis COMPARISON: None. PROCEDURE: Routine MRI of the left lower extremity was obtained without contrast. Multisequence, multiplanar imaging obtained. FINDINGS: Please note, only localizer, T1 coronal, STIR coronal, T2 fat-sat axial, and T1 axial images were able to be obtained. There is extensive motion artifact degrading assessment. There is edema present in the soft tissues. There is diffuse muscular atrophy. Severe degenerative changes of the left knee joint. No fluid collection is identified. No marrow signal replacement or fracture. IMPRESSION: * Suboptimal exam due to artifact. * No marrow signal replacement or significant bone marrow edema to suggest osteomyelitis. * Extensive edema in the soft tissues, correlate for cellulitis. Finalized by Paulino Correa MD on 11/10/2024 1:23 PM IMPRESSION: Acute kidney injury on Chronic kidney disease stage IIIB likely due to prerenal factors or due to acute tubular necrosis along with adverse effects of losartan. Creatinine is down to 1.6 mg/dL Hyperkalemia in the setting of Acute Kidney Injuiry on Chronic kidney disease along with losartan use. Potassium level improved with medical therapy. Lower extremity cellulitis: Management per primary service. Anemia of chronic kidney disease.. iron studies are not consistent with iron deficiency Hypertension : blood pressure is intermittently on the high side Thrombocytopenia could be due to sepsis with marrow suppression. Hit panel is negative. LDH is normal.Haptoglobin is normal.Peripheral blood smear is pending Urinary retention: Nj catheter was inserted on 11/10/2024 as PVR was greater than 600 Plan : Keep Nj catheter for now Consider Hematology evaluation. PTOT Continue with oral Lasix. Kimberly Perez M.D. [facility] Thank you for your consultation and allowing us to participate in the care of Rupa Youngblood Matt and please do not hesitate to call us with any questions at: Office: [phone] Office Answering Service: [phone] Please feel free to contact me through [employer] Secure chat during the daytime hours, if no response after 5 minutes then call the answering service. This note was created with the assistance of a speech-recognition program. Although the intention is to generate a document that actually reflects the content of the visit, no guarantees can be provided that every mistake has been identified and corrected by editing. Problem: Pain Goal: Patient goal is pain score less than 4, able to rest, and participant in treatment plan as appropriate Description: INTERVENTIONS: 1. Encourage patient or legal employee representative to report early pain and ask for pain medicine when needed 2. Assess pain using appropriate pain scale and include the scale used when documenting 3. Administer analgesics based on type and severity of pain and evaluate response within appropriate time frame 4. Implement non-pharmacological measures as appropriate and evaluate response 5. Consider cultural and social influences on pain and pain management 6. Notify LIP if interventions ineffective or patient reports new pain 7. Monitor vital signs including pulse ox, end-tidal CO2 based on pain intervention 8. Reassess pain per policy 9. Teach patient or legal employee representative interventions for comforting Outcome: Progressing Note: Evaluation of progress towards goal: Pt rates pain 0, prn medication available. Problem: Safety Goal: Patient will be injury free during hospitalization Description: INTERVENTIONS: 1. Assess patient's risk for falls and implement fall prevention plan of care per policy 2. Provide and maintain a safe environment 3. Proper use of double Identifiers 4. Medication administration using the 5 rights 5. Hand hygiene 6. Specimens are labeled at the bedside 7. Instruct patient/ patient employee representative about use of safety devices 8. Include patient/ patient employee representative in decisions related to safety Outcome: Progressing Note: Evaluation of progress towards goal: Pt. Remains free from falls and injuries. Call light in reach, bed in lowest position. Problem: Infection Goal: Absence of infection during hospitalization Description: INTERVENTIONS 1. Assess and monitor for signs and symptoms of infection. 2. Monitor lab/diagnostic results. 3. Monitor all insertion sites i.e., indwelling lines, tubes and drains. 4. Monitor endotracheal (as able) and nasal secretions for changes in amount and color. 5. Administer medications as ordered. 6. Instruct and encourage patient and family to use good hand hygiene technique. 7. Identify and instruct patient/patient employee representative in use of appropriate isolation precautions for identified infection/symptoms. 8. Provide and discuss with patient/patient employee representative on educational MDRO sheet. 9. Encourage and monitor nutritional status daily and consult mine inspector if indicated. 10. Implement neutropenic guidelines as needed. Outcome: Progressing Note: Evaluation of progress towards goal: Problem: Knowledge Deficit Goal: Patient/patient employee representative demonstrates understanding of disease process, treatment plan, medications, and discharge instructions Description: INTERVENTIONS 1. Complete learning assessment and assess knowledge base 2. Provide teaching at level of understanding 3. Provide teaching via preferred learning method(s) Outcome: Progressing Note: Evaluation of progress towards goal: Patient updated on POC along with medication. Patient voiced understanding. Problem: Discharge Planning Goal: Discharge to post-acute care, other facility, or home with appropriate resources Description: Patient's goal is: INTERVENTIONS 1. Conduct assessment to determine patient/family and health care team treatment goals, and need for post-acute services based on payer coverage, community resources, and patient preferences, and barriers to discharge 2. Coordinate with Social work, Care Navigation, and Utilization Review to arrange appropriate level of services according to patient's needs based on patient preference and payer coverage in collaboration with the physician and health care team 3. Address psychosocial, clinical, and financial barriers to discharge as identified in assessment in conjunction with the patient/family and health care team 4. Consult appropriate ancillary services (i.e.. PT/OT/ST, etc) as needed 5. Communicate with and update the patient/family, physician, and health care team regarding progress on the discharge plan 6. Identify discharge learning needs (meds, wound care, etc). 7. Arrange for needed discharge transportation as appropriate Outcome: Progressing Note: Evaluation of progress towards goal: Multidisciplinary teams working together with patient to achieve discharge goals. Ongoing Assessment for Discharge Needs Reviewed discharge milestones and patient needs related to discharge plan. Current estimated discharge date of November 11, 2024 has been reviewed by treatment team. Ongoing Assessment for Discharge Needs Flowsheet Row Most Recent Value Services Requested Patient expects to be discharged to: return to [facility] for longterm stay Does the patient wish to have family/friend/caregiver involved in their discharge planning? Yes Does the patient plan to return home to a community setting? No, patient to discharge to facility-based provider. See Discharge Disposition Discharge Disposition Skilled Return Skilled Return Name [facility] Skilled Return Skilled Return Does the patient need discharge transportation arranged? Yes Patient choice offered Patient declined List Provided Patient declined Patient Declined Active with Provider DC Planning Complete Discharge Milestones Yes Per [facility] can accept back at OR. Sticky note on chart with report/fax numbers. Care Navigation will continue to follow patient progress to determine appropriate safe care transition needs.. DISCHARGE PLANNING NOTE Referral for return sent to. [facility]/ [facility], [place], [place] (P# ; F# ) Images from the original note were not included. Initial Assessment Initial Assessment Flowsheet Row Most Recent Value Patient Information Initial Pre-Hospitalization Assessment Completed? Completed Primary Caregiver Self Support System Children, Spouse/Significant Other [friend Adam, son Ilya, daughter Dinorah] Discharge Planning Living Arrangements Private Residence [pt normally lives at home, came to hospital from [facility] d/t SNF post DC after last admission] Assistance Needed therapies Private Residence [address] [place] Res[address] Accessibility Steps into home Home Care Services No Type of Residence Private residence Stressors Type of stressor -- [does not endorse] Income Information Income Information Retired/Pension/Social Security IP Hunger/Food Insecurity Screening Within the past 12 months we worried whether our food would run out before we got money to buy more. Never True Within the past 12 months the food we bought just didn't last and we didn't have money to get more. Never True Hunger Screening Complete? Yes Pt. Eligible for Food / Voucher No If Eligible: Received Food Box Not Offered to Patient Warm Handoff Complete Caregiver/Family Member Caregiver/Support System Limitations Patient/Caregiver Goals Patient/Caregiver Goals Nursing Home Care Skilled [facility] Skilled Care (Short Term) Community Provider Referral Services Requested Patient expects to be discharged to: return to [facility] for longterm stay Does the patient wish to have family/friend/caregiver involved in their discharge planning? Yes Does the patient plan to return home to a community setting? No, patient to discharge to facility-based provider. See Discharge Disposition Discharge Disposition Skilled Return Skilled Return Name [facility] Skilled Return Skilled Return Does the patient need discharge transportation arranged? Yes Patient choice offered Patient declined List Provided Patient declined Patient Declined Active with Provider DC Planning Complete Discharge Milestones Yes Services Requested: Services Requested Patient expects to be discharged to:: return to [facility] for longterm stay Does the patient wish to have family/friend/caregiver involved in their discharge planning?: Yes Does the patient plan to return home to a community setting?: No, patient to discharge to facility-based provider. See Discharge Disposition Discharge Disposition: Skilled Return Skilled Return Name: [facility] Skilled Return Skilled Return Does the patient need discharge transportation arranged?: Yes Patient choice offered: Patient declined List Provided: Patient declined Patient Declined: Active with Provider DC Planning Complete Discharge Milestones: Yes Patient Goals: Patient/Caregiver Goals Patient/Caregiver Goals: Nursing Home Care Skilled [facility] Care: Skilled Care (Short Term) Goals return to [facility] to complete skilled stay (pt-stated) Evaluation of progress towards goal: feeling better than at admission Additional Comments (If Applicable) Chart reviewed; pt DC to SNF 10/27/24. Introduced self & role of SW, pleasant pt agreeable to conversation; assessment/goals as above. Pt relayed she DC to [facility] in [place] but then a bed opened at [facility] so she transferred to [facility]. Pt plan is to return to [facility] to complete longterm stay. Pt gives newspaper writer permission to send referral to [facility]. Pt goal is eventually home going with her friend Adam & her son Ilya; pt daughter Dinorah lives 1 block away. Pt relayed Chip & children provide good support. Pt does not endorse any type of domestic abuse. Pt does not endorse anxiety, depression or other mental health concerns; negative [place] screen. Pt family assists with transportation. Patient's preferred pharmacy is [facility]. PCP verified as Dr. Bridges. Opportunity provided to ask questions, pt does not endorse any at this time. Plan is to return to [facility] to complete longterm stay. Tasked Transition Center to send return to SNF referral to [facility]. Industrial Ecology Technician spoke with Dilcia at [facility], they will have bed for pt at OR. Plan to prevent readmission is for pt to return to SNF, follow DC instructions including medication compliance and to reach out to health care team as needed. Care Navigation will continue to follow patient progress to determine appropriate safe care transition needs. Images from the original note were not included. WOUND CARE NOTE Date of Admission: 11/08/2024 12:30 PM Reason for Consult: BLE wounds/cellulitus History of Present Illness: Rupa Gutierrez who presents with lymphedema and leg wounds. Patient has been seen in the wound clinic. Pain is worsened with touching and pressure. Pain is improved with rest. Current wound pain /10. Vital Signs: BP 144/54 Pulse 95 Temp 36.3 C (97.3 F) (Temporal) Resp 18 Ht 149.9 cm (4' 11 ) Wt 103.1 kg (227 lb 3.2 oz) SpO2 99% BMI 45.89 kg/m Wound Assessment: Wound 10/24/24 1 Calf Right;Medial (Active) Wound 10/24/24 2 Other (comment) Calf Left;Posterior (Active) Wound Image 11/10/24 1000 Site Assessment Red;Moist;Painful 11/10/24 1000 Ana-wound Assessment Blanchable erythema;[place] 11/10/24 1000 Dressing Type Xeroform;Abdominal dressing;Gauze Rolled/Kerlix 11/10/24 1000 Dressing Changed Changed 11/10/24 1000 Dressing Status Clean;Dry;Intact 11/10/24 1000 Wound Bed Granulation (%) 75% to 100% 11/10/24 1000 Wound Bed Slough (%) < 25% 11/10/24 1000 Wound 10/26/24 3 Diabetic Ulcer Heel Right;Posterior (Active) Wound Image 11/10/24 1000 Site Assessment Eschar Stable 11/10/24 1000 Ana-wound Assessment Dry 11/10/24 1000 Wound Length (cm) 1.5 cm 11/10/24 1000 Wound Width (cm) 1 cm 11/10/24 1000 Wound Surface Area (cm^2) 1.18 cm^2 11/10/24 1000 Change in Wound Size % -25.53 11/10/24 1000 Drainage Amount None 11/10/24 1000 Dressing Type Honey Dressing;Xeroform;Gauze Rolled/Kerlix;Abdominal dressing 11/10/24 1000 Dressing Changed New 11/10/24 1000 Dressing Status Clean;Intact;Dry 11/10/24 1000 Wound Bed Eschar (%) 100% 11/10/24 1000 Wound 10/26/24 4 Other (comment) Calf Right;Medial (Active) Wound Image 11/10/241099 Site Assessment Yellow;Moist;Painful;[place] 11/10/241099 Ana-wound Assessment Blanchable erythema 11/10/241099 Wound Length (cm) 3.5 cm 11/10/241099 Wound Width (cm) 6 cm 11/10/241099 Wound Surface Area (cm^2) 16.49 cm^2 11/10/24 1100 Drainage Description Serosanguineous;Yellow 11/10/241099 Drainage Amount Moderate 11/10/24 1100 Dressing Type Xeroform;Abdominal dressing;Gauze Rolled/Kerlix 11/10/24 1100 Dressing Changed Changed 11/10/24 1100 Dressing Status Clean;Dry;Intact 11/10/24 1100 Wound Bed Slough (%) 100% 11/10/241099 Plan of care discussed with wound care services OPTICAL COATING TECHNICIAN Wound Plan Dressing: Right heel: Cleanse with soap and water then pat dry. Apply medi honey to xeroform then place on wound bed cover with ABD dressing and secure with roll gauze.Change daily Right medial calf and left posterior calf: Cleanse with soap and water then pat dry. Apply xeroform to wound bed cover with ABD dressing and secure with roll gauze. Change daily Offloading: Turn patient every 2 hours Skin Care: Moisturize all dry and intact skin daily Edema Management: Elevate legs above the heart 3 times a day for 10-15 minutes Follow up: Will continue to follow while inpatient. Patient will continue to be seen in wound clinic at discharge Thank you for allowing us to participate in the care of this patient. Please feel free to call us with any questions or concerns. Letty Dodson RN [facility] Preferred contact via Ext. [phone], [employer] Chat or [facility] [place] KETTLE COOK: Codie March APRN-OPTICAL COATING TECHNICIAN, CWS, COCN Occupational Therapy Evaluation Discharge Recommendations for Safe Patient Transition Post Acute Moderate Rehab Needs: Recommend moderate intensity rehab, Tolerate 1-2 hrs of therapy 3-5 days/wk, Subacute or chronic functional impairment (recommend returned to [facility] for continued OT to increase BUE strength, endurance, and promote highest level of functional independence during ADL tasks) Current Impairments Informing Therapy Recommendation: Ambulation status/safety, Cognition, Fall risk, ADL status, Endurance level, Caregiver needs/level of support Derrick Worker Well Service Support for-: Mobility Deficits, ADL Deficits, Cognitive Impairments 6 Clicks: Daily Activity Putting on and taking off regular lower body clothing?: Total Bathing (including washing, rinsing, drying)?: A lot Toileting, which includes using toilet, bedpan or urinal?: Total Putting on and taking off regular upper body clothing?: A lot Taking care of personal grooming such as brushing teeth?: A little Eating meals?: A little Scoring Daily Activity Raw Score: 12 CMS G Code Modifier: CL Therapy Plan/HPI/occupational profile throughout eval Need for skilled Occupational Therapy to address deficits in ADL independence and functional mobility due to a status decline resulting from lymphedema, cellulitis of LE. A moderate complex eval was completed. Past Surgical History: Procedure Laterality Date APPENDECTOMY 1951 SECTION x2 DILATION AND CURETTAGE OF UTERUS DISCECTOMY EYE SURGERY NECK SURGERY TONSILLECTOMY Past Medical History: Diagnosis Date Anxiety C. difficile diarrhea [place] [place] Diabetes [place] type [place] [place] Hypertension Hypothyroid Insomnia Kidney stone stage 3 Neuropathy Obesity Osteoarthritis Paroxysmal supraventricular tachycardia Peripheral neuropathy Plantar fasciitis Pulmonary [place] [place] PVD (peripheral vascular disease) Visual impairment White coat syndrome with diagnosis of hypertension OT Treatment/Interventions: ADL retraining, Functional transfer training, UE strengthening/ROM, Endurance training, Cognitive reorientation, Patient/family training, Equipment eval/education, Balance, Home management, Compensatory technique education, Functional activities, Neuromuscular reeducation OT Frequency: 4-5days/week OT Duration: 10 days Assessment Patient Assessment Therapy Problem List: Decreased ADL status, Decreased balance, Decreased endurance, Decreased high-level ADLs, Decreased mobility, Decreased self-care trans, Decreased LE ROM, Decreased LE strength, Decreased UE strength Patient Response to Treatment: Tolerated evaluation without adverse reaction Mood/Affect: Appropriate for circumstances Rehab Prognosis: Fair, Guarded, With continued OT status post acute discharge Visit RN Communication: Yes Medical Record Reviewed: Yes OT Type of Visit: Evaluation Precautions Activity: early mobility pass, OK to eval per Maia HUTCHISON Equipment: Maxi-Marty, air cushion for chair, pure whick Weight Bearing Status: Assumed NWB R UE due to wrist splint/brace. Patient reports inability to bear weight on R UE. fracture of R wrist patient seen 10/19 in ortho office : Dr. Ortiz was present and provided plan of care. At this stage 7+ weeks after injury recommendation is splint ROM fingers and elbow Follow up in 6 weeks with repeat films, consider surgical intervention at that time. Telemetry/Extension Edger: Yes Oxygen Used: room air Other: fall risk, multiple wounds on bilteral LE's. was recently admitted here to hospital around 10/26/24 Subjective Occupational Therapy Comments: I want to get up Pain Assessment Pain Assessment: 0-10 Pain Score: (pain with movement, does not rate) Pain Location: Foot Pain Orientation: Right, Left Pain Intervention(s): Repositioned, Emotional support Home Living Type of Home: Facility (Patient is currently at [facility] for SNF, prior to that lived at home.) Prior Function Lives With: Other (Comment) (Currently at SNF) Receives Help From: Other (Comment) (staff currently at facility) Level of Mobility: Needs assistance with ADLs or functional transfers or gait (reports pivoting to wheelchair, has assist for ADLS) Homemaking Assistance: Needs assistance (completed by staff) ADL / IADL Hand Dominance: Left (using L) Eating Assistance: Setup Grooming Assistance: Mod assist Grooming Deficit: Brushing hair (use L hand) Bathing/Showering Assistance: Max assist, Total assist Bathing/Showering Deficit: Left lower leg including foot, Right lower leg including foot, Left upper leg, Right upper leg, Buttocks, Perineal area, Abdomen, Left arm, Right arm, Chest, Increased time to complete , Supervision/safety, Verbal cueing, Steadying (completes while supine, podwer applied under breasts and skin folds) Toilet/Commode Assistance: Total assist (pure whick/brief/ bed delacruz) UE Dressing Assistance: Min assist (to don/dof gown) LE Dressing Assistance: Total assist Footwear Assistance: Total assist (multiple foot wounds) Other: newspaper writer introduced self, role and goals of OT. pt is agreeable to get into the chair after ADLS completed. sponge bath completed while supine, brief change, powder applied to sklin folds. Home Management - IADL Other: newspaper writer introduced self, role and goals of OT. pt is agreeable to get into the chair after ADLS completed. sponge bath completed while supine, brief change, powder applied to sklin folds. Hearing / Speech / Vision Hearing: Within Functional Limits Speech: Within Functional Limits Current Vision: No visual deficits Cognition Orientation Level: Oriented to person, Oriented to place Bed Mobility Rolling: Max assist (during ana area care/ rolling completed to change brief and complete sponge bath) Transfers Bed to Chair: Total assist (maxi marty) Gait Other: unable to assess due to bilteral foot wounds, body habitus, pt's feet do not touch floor Balance Sitting Balance: Static: Fair Sitting Balance: Dynamic: Poor, Fair RUE Assessment: (grossly 3/5, R wrist in splint) LUE Assessment: (grossly 3+/5) Activity Tolerance Endurance: Tolerates <30 minutes activity WITHOUT vital sign changes Plan Occupational Therapy Care Plan Occupational Therapy Care Plan (Active) Template: OT - Occupational Therapy Problem: Activity Tolerance Dates: Start: 11/10/24 Disciplines: OT Goal: Tolerate > 30 minutes of activity WITH rest breaks Dates: Start: 11/10/24 Expected End: 11/19/24 Description: Goal Description:patient to engage in activities of choice with out changes in vitals in order to promote return to prior level of function Disciplines: OT Problem: Other (Customize) Dates: Start: 11/10/24 Disciplines: OT Goal: Improve Dates: Start: 11/10/24 Expected End: 11/19/24 Description: Goal Description:Patient to increase IND in ADls to min assist while adhering to NWB of R UE in order to promote return to prior level of function and decrease healthcare marketer burden Disciplines: OT Problem: Standing Balance Dates: Start: 11/10/24 Disciplines: OT Goal: Improve balance to good Dates: Start: 11/10/24 Expected End: 11/19/24 Description: OT to assess to further develop plan of care Disciplines: OT Problem: Strength Dates: Start: 11/10/24 Disciplines: OT Goal: Improve strength Dates: Start: 11/10/24 Expected End: 11/19/24 Description: Of extremity/ location:pt to increase BUE strength ( excluding R wrist) to 4/5 to assist with increased independence in ADL tasks Disciplines: OT Occupational Therapy Care Plan (Resolved) There are no resolved problems. Principal Problem: Lymphedema Active Problems: Essential hypertension Diabetes mellitus type I (CMS-HCC) Hyperkalemia Hypothyroid PVD (peripheral vascular disease) Hyponatremia Problem: Pain Goal: Patient goal is pain score less than 4, able to rest, and participant in treatment plan as appropriate Description: INTERVENTIONS: 1. Encourage patient or legal employee representative to report early pain and ask for pain medicine when needed 2. Assess pain using appropriate pain scale and include the scale used when documenting 3. Administer analgesics based on type and severity of pain and evaluate response within appropriate time frame 4. Implement non-pharmacological measures as appropriate and evaluate response 5. Consider cultural and social influences on pain and pain management 6. Notify LIP if interventions ineffective or patient reports new pain 7. Monitor vital signs including pulse ox, end-tidal CO2 based on pain intervention 8. Reassess pain per policy 9. Teach patient or legal employee representative interventions for comforting 11/10/2024 1006 by KIANNA Villarreal Outcome: Progressing Note: Evaluation of progress towards goal: monitor and treat pain as ordered 11/10/2024 1003 by KIANNA Villarreal Outcome: Progressing Note: Evaluation of progress towards goal: monitor and treat pain as ordered Problem: Safety Goal: Patient will be injury free during hospitalization Description: INTERVENTIONS: 1. Assess patient's risk for falls and implement fall prevention plan of care per policy 2. Provide and maintain a safe environment 3. Proper use of double Identifiers 4. Medication administration using the 5 rights 5. Hand hygiene 6. Specimens are labeled at the bedside 7. Instruct patient/ patient employee representative about use of safety devices 8. Include patient/ patient employee representative in decisions related to safety 11/10/2024 1006 by KIANNA Villarreal Outcome: Progressing Note: Evaluation of progress towards goal: remains free from fall/ injury 11/10/2024 1003 by KIANNA Villarreal Outcome: Progressing Note: Evaluation of progress towards goal: remains free from fall/ injury Problem: Pain Goal: Patient goal is pain score less than 4, able to rest, and participant in treatment plan as appropriate Description: INTERVENTIONS: 1. Encourage patient or legal employee representative to report early pain and ask for pain medicine when needed 2. Assess pain using appropriate pain scale and include the scale used when documenting 3. Administer analgesics based on type and severity of pain and evaluate response within appropriate time frame 4. Implement non-pharmacological measures as appropriate and evaluate response 5. Consider cultural and social influences on pain and pain management 6. Notify LIP if interventions ineffective or patient reports new pain 7. Monitor vital signs including pulse ox, end-tidal CO2 based on pain intervention 8. Reassess pain per policy 9. Teach patient or legal employee representative interventions for comforting Outcome: Progressing Note: Evaluation of progress towards goal: monitor and treat pain as ordered Problem: Safety Goal: Patient will be injury free during hospitalization Description: INTERVENTIONS: 1. Assess patient's risk for falls and implement fall prevention plan of care per policy 2. Provide and maintain a safe environment 3. Proper use of double Identifiers 4. Medication administration using the 5 rights 5. Hand hygiene 6. Specimens are labeled at the bedside 7. Instruct patient/ patient employee representative about use of safety devices 8. Include patient/ patient employee representative in decisions related to safety Outcome: Progressing Note: Evaluation of progress towards goal: remains free from fall/ injury Images from the original note were not included. Tele-NephrologyTelemedicine Consult Note Consent Statement: I discussed risks, benefits, and alternatives of a real-time synchronous audiovisual consultation with the patient (and any accompanying persons) including the risks that the patient's personal health details and medical records will be discussed over real-time, synchronous, interactive video/audio/telecommunication technology, the visit will not be recorded without the express consent of both the provider and the patient, and that there are some limitations compared to [id number] evaluations. We elected to proceed. Nephrology Daily Progress Note INTERVAL HISTORY/History of present illness: Patient is sitting in chair and comfortable. Her breathing is all right. She denies any nausea or vomiting. She denies any fever or chills. She has some concerns about her neuropathy PROBLEM LIST: 1. Chronic kidney disease stage IIIB. Nephrologic investigations in May of 2020 included an LUISITO screen which was positive and anti double-stranded DNA antibody titer that was elevated to 27. Rheumatoid factor less than 10. 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 A urinalysis on 05/27/2020 showed trace protein greater than 1000 mg/dL of glucose less than 1 red blood cell and 1 white blood cell per high-power field the urine protein creatinine ratio was 0.98 gram/gram predicting that in 24 hours, approximately 980 mg of protein would be excreted. Some early serologies include a C-reactive protein which was 2.0. An LUISITO screen which was positive. Anti double-stranded DNA was 27. Rheumatoid factor was less than that. A urinalysis of 04/17/2019 showed 100 mg/dL protein. Hyperkalemia October 2024 2. Type 1 diabetes mellitus 3. Hypertension 4. Hyperlipidemia 5. Hypothyroidism 6. History of distal left ureteral calculus followed by Dr. Harris. A CT scan of the abdomen pelvis on November 01, 2019 showed a left, 2 mm, ureterovesical junction stone. She was treated transiently with Flomax but stopped it because it made her feel poorly. By 09/04/2019 was felt that she had spontaneously passed the stone. 7.Osteoarthritis. Multiple joints affected, a right total knee arthroplasty has been recommended by Dr. Arevalo. 8. Cervical radiculopathy status post anterior approach diskectomy 9. History of C difficile diarrhea 10. Anemia October 2024 11. Thrombocytopenia October 2024 VITAL SIGNS TREND: Vitals: 11/09/24 1929 11/10/24 0053 11/10/24 0357 11/10/24 0756 BP: 137/86 163/76 151/82 144/54 Pulse: 100 96 103 95 Resp: 20 20 20 18 Temp: 36.6 C (97.8 F) 36.5 C (97.7 F) 36.8 C (98.3 F) 36.3 C (97.3 F) TempSrc: Oral Oral Oral Temporal SpO2: 98% 98% 98% 99% Weight: 103.1 kg (227 lb 3.2 oz) Height: INTAKE/OUTPUT: Intake/Output Summary (Last 24 hours) at 11/10/2024 0856 Last data filed at 11/10/2024 0515 Gross per 24 hour Intake 720 ml Output 1050 ml Net -330 ml No intake/output data recorded. WEIGHT: Wt Readings from Last 3 Encounters: 11/10/24 103.1 kg (227 lb 3.2 oz) 10/26/24 96.2 kg (212 lb) 09/07/24 112 kg (247 lb) cefTRIAXone (ROCEPHIN) IV, 2,000 mg, intravenous, Q24H insulin glargine, 60 Units, subcutaneous, Daily insulin lispro, 2-10 Units, subcutaneous, With meals and nightly levothyroxine, 25 mcg, oral, Daily pantoprazole, 40 mg, oral, QAM AC sodium chloride, 3 mL, intravenous, Q12H MARLENE vancomycin, , intravenous, Dosed by Levels dextrose 5 % in water, 100 mL/hr sodium chloride 0.9 %, 20 mL/hr PHYSICAL EXAM: Blood pressure 144/54, pulse 95, temperature 36.3 C (97.3 F), temperature source Temporal, resp. rate 18, height 149.9 cm (4' 11 ), weight 103.1 kg (227 lb 3.2 oz), SpO2 99%. Temp: [36.3 C (97.3 F)-36.8 C (98.3 F)] 36.3 C (97.3 F) Pulse: [95-104] 95 Resp: [18-20] 18 BP: (133-163)/(48-86) 144/54 SpO2: [97 %-99 %] 99 % O2 Device: None (Room air) Physical exam was based on my observation as well as nursing staff assessment LABORATORY EVALUATION: Results from last 7 days Lab Units 11/10/24 0528 11/09/24 1241 11/09/24 0612 11/08/24 1622 11/08/24 1320 SODIUM mmol/L 138 -- 135 -- 132* POTASSIUM mmol/L 4.4 5.2* 5.3* 5.3* 5.5* CHLORIDE mmol/L 104 -- 106 -- 101 CO2 mmol/L 22 -- 22 -- 22 BUN mg/dL 65* -- 76* -- 81* CREATININE mg/dL 1.86* -- 2.35* -- 2.67* CALCIUM mg/dL 8.8 -- 8.5 -- 8.7 MAGNESIUM mg/dL 2.7* -- 2.9* -- 2.9* PHOSPHORUS mg/dL 3.1 -- -- -- -- Results from last 7 days Lab Units 11/10/24 0528 11/09/24 1241 11/09/24 0633 11/08/24 1320 WBC x10E9/L 11.1* 10.5 11.2* 13.1* HEMOGLOBIN g/dL 9.7* 9.9* 10.0* 10.1* HEMATOCRIT % 28.9* 29.4* 30.0* 30.1* PLATELETS X10E9/L 19* 25* 27* 204 Results from last 7 days Lab Units 11/10/24 0528 11/09/24 0612 11/08/24 1320 PROTEIN TOTAL g/dL 7.2 7.7 7.2 ALBUMIN g/dL 2.9* 3.3 3.3 AST U/L 19 22 26 ALT U/L 15 18 14 No results found. IMPRESSION: Acute kidney injury on Chronic kidney disease stage IIIB likely due to prerenal factors or due to acute tubular necrosis along with adverse effects of losartan. Creatinine is improving Hyperkalemia in the setting of Acute Kidney Injuiry on Chronic kidney disease along with losartan use. Potassium level improved with medical therapy. Lower extremity cellulitis: Management per primary service. Anemia of chronic kidney disease. Hypertension : Blood pressure is slightly on the high side Thrombocytopenia could be due to sepsis with marrow suppression. Peripheral blood smear is pending Plan : Check hemolysis workup Check peripheral blood smear Recommend Hematology/oncology consult. Restart Lasix 40 mg p.o. daily Follow-up repeat renal chemistry tomorrow Check PVR Kimberly Perez M.D. [facility] Thank you for your consultation and allowing us to participate in the care of Rupa Gutierrez and please do not hesitate to call us with any questions at: Office: [phone] Office Answering Service: [phone] Please feel free to contact me through [employer] Secure chat during the daytime hours, if no response after 5 minutes then call the answering service. This note was created with the assistance of a speech-recognition program. Although the intention is to generate a document that actually reflects the content of the visit, no guarantees can be provided that every mistake has been identified and corrected by editing. Problem: Pain Goal: Patient goal is pain score less than 4, able to rest, and participant in treatment plan as appropriate Description: INTERVENTIONS: 1. Encourage patient or legal employee representative to report early pain and ask for pain medicine when needed 2. Assess pain using appropriate pain scale and include the scale used when documenting 3. Administer analgesics based on type and severity of pain and evaluate response within appropriate time frame 4. Implement non-pharmacological measures as appropriate and evaluate response 5. Consider cultural and social influences on pain and pain management 6. Notify LIP if interventions ineffective or patient reports new pain 7. Monitor vital signs including pulse ox, end-tidal CO2 based on pain intervention 8. Reassess pain per policy 9. Teach patient or legal employee representative interventions for comforting Outcome: Progressing Note: Evaluation of progress towards goal: Pt rates pain 8 , prn medication available. Problem: Safety Goal: Patient will be injury free during hospitalization Description: INTERVENTIONS: 1. Assess patient's risk for falls and implement fall prevention plan of care per policy 2. Provide and maintain a safe environment 3. Proper use of double Identifiers 4. Medication administration using the 5 rights 5. Hand hygiene 6. Specimens are labeled at the bedside 7. Instruct patient/ patient employee representative about use of safety devices 8. Include patient/ patient employee representative in decisions related to safety Outcome: Progressing Note: Evaluation of progress towards goal: Pt. Remains free from falls and injuries. Call light in reach, bed in lowest position. Problem: Infection Goal: Absence of infection during hospitalization Description: INTERVENTIONS 1. Assess and monitor for signs and symptoms of infection. 2. Monitor lab/diagnostic results. 3. Monitor all insertion sites i.e., indwelling lines, tubes and drains. 4. Monitor endotracheal (as able) and nasal secretions for changes in amount and color. 5. Administer medications as ordered. 6. Instruct and encourage patient and family to use good hand hygiene technique. 7. Identify and instruct patient/patient employee representative in use of appropriate isolation precautions for identified infection/symptoms. 8. Provide and discuss with patient/patient employee representative on educational MDRO sheet. 9. Encourage and monitor nutritional status daily and consult mine inspector if indicated. 10. Implement neutropenic guidelines as needed. Outcome: Progressing Note: Evaluation of progress towards goal: Problem: Knowledge Deficit Goal: Patient/patient employee representative demonstrates understanding of disease process, treatment plan, medications, and discharge instructions Description: INTERVENTIONS 1. Complete learning assessment and assess knowledge base 2. Provide teaching at level of understanding 3. Provide teaching via preferred learning method(s) Outcome: Progressing Note: Evaluation of progress towards goal: Patient updated on POC along with medication. Patient voiced understanding. Problem: Discharge Planning Goal: Discharge to post-acute care, other facility, or home with appropriate resources Description: Patient's goal is: INTERVENTIONS 1. Conduct assessment to determine patient/family and health care team treatment goals, and need for post-acute services based on payer coverage, community resources, and patient preferences, and barriers to discharge 2. Coordinate with Social work, Care Navigation, and Utilization Review to arrange appropriate level of services according to patient's needs based on patient preference and payer coverage in collaboration with the physician and health care team 3. Address psychosocial, clinical, and financial barriers to discharge as identified in assessment in conjunction with the patient/family and health care team 4. Consult appropriate ancillary services (i.e.. PT/OT/ST, etc) as needed 5. Communicate with and update the patient/family, physician, and health care team regarding progress on the discharge plan 6. Identify discharge learning needs (meds, wound care, etc). 7. Arrange for needed discharge transportation as appropriate Outcome: Progressing Note: Evaluation of progress towards goal: Multidisciplinary teams working together with patient to achieve discharge goals. Physical Therapy Evaluation Discharge Recommendations for Safe Patient Transition Post Acute Moderate Rehab Needs: Recommend moderate intensity rehab, Tolerate 1-2 hrs of therapy 3-5 days/wk, Subacute or chronic functional impairment Current Impairments Informing Therapy Recommendation: Ambulation status/safety, Cognition, Endurance level, Caregiver needs/level of support Derrick Worker [employer] Support for-: Mobility Deficits, ADL Deficits, Cognitive Impairments (Confused. Needs re-oriented to situation and place frequently.) 6 Clicks: Basic Mobility Turning from your back to your side while in a flat bed without using bed rails?: A lot Moving from lying on your back to sitting on side of flat bed without using bed rails?: A lot Moving to and from bed to a chair (including w/c)?: A lot Standing up from a chair using your arms (e.g. w/c or bedside chair)?: A lot To walk in hospital room?: Total Climbing 3-5 steps with a railing?: Total Scoring 6 Clicks: Basic Mobility Raw Score: 10 [facility] G Code Modifier: CL Therapy Plan Need for skilled Physical Therapy to address deficits in functional mobility due to a status decline resulting from lymphedema with multiple LE wounds and confusion. Complicated by recent R. Wrist fracture and NWB status R. UE. Also with recent hospitalization and discharge to SNF for IV antibiotics and therapy for impaired mobility. PT Treatment/Interventions: Functional transfer training, LE strengthening/ROM, Endurance training, Balance, Bed mobility, Gait training, Functional activities, Neuromuscular reeducation PT Frequency: 5-6days/week PT Duration: 10 days Assessment Patient Assessment Therapy Problem List: Decreased ADL status, Decreased balance, Decreased endurance, Decreased high-level ADLs, Decreased mobility, Decreased self-care trans, Decreased LE ROM, Decreased LE strength Patient Response to Treatment: Tolerated evaluation without adverse reaction Mood/Affect: Appropriate for circumstances Rehab Prognosis: Fair, Guarded, With continued PT status post acute discharge Visit RN Communication: Yes Medical Record Reviewed: Yes PT Type of Visit: Evaluation Precautions Activity: early mobility pass; ok to evaluate per Maia HUTCHISON Equipment: Maxi-Marty, air cushion for chair Weight Bearing Status: Assumed NWB R. UE d/t wrist splint/brace. Patient reports in ability to bear weight on R. UE Telemetry/Extension Edger: Yes Oxygen Used: room air Past Medical History: Diagnosis Date Anxiety C. difficile diarrhea [place] [place] disease Diabetes mellitus type I [place] [place] Hypertension Hypothyroid Insomnia Kidney stone stage 3 Neuropathy Obesity Osteoarthritis Paroxysmal supraventricular tachycardia Peripheral neuropathy Plantar fasciitis Pulmonary HTN ([facility]) PVD (peripheral vascular disease) Visual impairment White coat syndrome with diagnosis of hypertension Past Surgical History: Procedure Laterality Date APPENDECTOMY 1951 SECTION x2 DILATION AND CURETTAGE OF UTERUS DISCECTOMY EYE SURGERY NECK SURGERY TONSILLECTOMY Subjective Physical Therapy Comments: I want to sit up. Pain Assessment Pain Assessment: 0-10 Pain Score: 6 Observed Behavior: Calm Pain Location: Foot Pain Orientation: Right, Left Pain Intervention(s): Repositioned, Emotional support Response to Interventions: Pain unchanged Pain 2 Observed Behavior: Calm Home Living Type of Home: (Patient currently at [facility]) Home Layout: (Currently in a one level facility for SNF) Other : Patient presents from [facility]. Recent stay on 10/23/24 at [facility] for LE cellulitis and discharged to [place] [facility] for therapy and antibiotics IV. Patient previously from home with family support. Reports NWSaira MUNOZ still at this time, brace/splint donned. Patient reports still working with therapy at [facility]. Prior Function Lives With: (Currently at facility, [facility]) Receives Help From: (Staff at facility for all ADLs/IADLs.) Level of Mobility: Needs assistance with ADLs or functional transfers or gait (Pivoting to w/c, NWB R. UGeorgina. Multiple LE wounds/foot wounds.) Homemaking Assistance: Needs assistance (Currently performed by [facility] staff.) Hearing / Speech / Vision Hearing: Within Functional Limits Speech: Within Functional Limits Current Vision: No visual deficits Cognition Orientation Level: Oriented to place, Oriented to person, Disoriented to time Sensation Overall Sensation Status: (Unable to formally assess, very sensitive to even light touch of the lower extremities.) Bed Mobility Rolling: Max assist Supine to Sit: (Did not assess, patient unable to mobilize LEs or tolerate touch of R. LE. Use of MAXI MARTY for patient safety.) Other: MAX A to attempt rolling with use of bed rails. Unable to bear weight through R. UE do to recent fracture. R. LE too painful to allow therapist to assist. Transfers Other: MAXI MARTY for mobility this date do to requiring significant assist to roll in bed and inability to bear weight on R. UE to help with standing. Short stature impairs abilty for feet to touch floor at edge of bed. Balance Sitting Balance: Static: Good Sitting Balance: Dynamic: Good, Fair (with trunk support in chair) Standing Balance: Static: Poor Standing Balance: Dynamic: Poor RLE Assessment: (Significant lymphedema and multiple bilateral LE wounds with dressings intact. Grossly 2+/5, has muscle contraction but unable to mobilize through ROM at hip/knee/ankle in supine or sitting in chair.) LLE Assessment: (Significant lymphedema and multiple bilateral LE wounds with dressings intact. Grossly 3/5, has ability to mobilize LE against gravity at hip/knee/ankle but not tolerate resistance.) Activity Tolerance Endurance: Tolerates <30 minutes activity WITHOUT vital sign changes Plan Physical Therapy Care Plan Physical Therapy Care Plan (Active) Template: PT - Physical Therapy Problem: Activity Tolerance Dates: Start: 11/09/24 Disciplines: PT Goal: Tolerate 30 minutes of activity WITH rest breaks Dates: Start: 11/09/24 Expected End: 11/18/24 Description: Goal Description: to improve LE strength and ability to participate in transfer training. Disciplines: PT Problem: Bed Mobility Dates: Start: 11/09/24 Disciplines: PT Goal: Patient will perform bed mobility with Maximum Assist Dates: Start: 11/09/24 Expected End: 11/18/24 Description: Goal Description: and hospital bed functions do to improving LE strength and LE edema. Disciplines: PT Problem: Transfers Dates: Start: 11/09/24 Disciplines: PT Goal: Patient will perform transfers with Maximum Assist Dates: Start: 11/09/24 Expected End: 11/18/24 Description: Goal Description: and use of platform walker vs. Hemiwalker to improve ability to transfer to chair, bedside commode, and w/c. Disciplines: PT Physical Therapy Care Plan (Resolved) There are no resolved problems. Principal Problem: Lymphedema Active Problems: Essential hypertension Diabetes mellitus type I ([facility]) Hyperkalemia Hypothyroid PVD (peripheral vascular disease) Hyponatremia Problem: Pain Goal: Patient goal is pain score less than 4, able to rest, and participant in treatment plan as appropriate Description: INTERVENTIONS: 1. Encourage patient or legal employee representative to report early pain and ask for pain medicine when needed 2. Assess pain using appropriate pain scale and include the scale used when documenting 3. Administer analgesics based on type and severity of pain and evaluate response within appropriate time frame 4. Implement non-pharmacological measures as appropriate and evaluate response 5. Consider cultural and social influences on pain and pain management 6. Notify LIP if interventions ineffective or patient reports new pain 7. Monitor vital signs including pulse ox, end-tidal CO2 based on pain intervention 8. Reassess pain per policy 9. Teach patient or legal employee representative interventions for comforting Outcome: Progressing Note: Evaluation of progress towards goal: monitor and treat pain as ordered Problem: Safety Goal: Patient will be injury free during hospitalization Description: INTERVENTIONS: 1. Assess patient's risk for falls and implement fall prevention plan of care per policy 2. Provide and maintain a safe environment 3. Proper use of double Identifiers 4. Medication administration using the 5 rights 5. Hand hygiene 6. Specimens are labeled at the bedside 7. Instruct patient/ patient employee representative about use of safety devices 8. Include patient/ patient employee representative in decisions related to safety Outcome: Progressing Note: Evaluation of progress towards goal: remains free form fall/ injury Images from the original note were not included. Consults Tele-Nephrology Telemedicine Consult Note Consent Statement: I discussed risks, benefits, and alternatives of a real-time synchronous audiovisual consultation with the patient (and any accompanying persons) including the risks that the patient's personal health details and medical records will be discussed over real-time, synchronous, interactive video/audio/telecommunication technology, the visit will not be recorded without the express consent of both the provider and the patient, and that there are some limitations compared to [id number] evaluations. We elected to proceed. NEPHROLOGY CONSULT NOTE Date of Admission: 11/08/2024 12:30 PM Reason for Consult: Acute on stage IIIB chronic kidney disease Referring Physician: Dr. Funez PCP: ANGELINE BRIDGES MD Chief Complaint: Chief Complaint Patient presents with Leg Pain History of Present Illness: Rupa Gutierrez is a 83 y.o. female with a history stage IIIB chronic kidney disease and a creatinine of 1.57 February 07, 2024, seen at the request of to evaluate acute on stage IIIB chronic kidney disease. The patient presented to the emergency department with complaints of bilateral lower extremity leg pain. She has been treated as an outpatient for lower extremity cellulitis. On Physical examination in the ER she had stage I pressure ulcerations of the posterior right ankle and posterior left ankle. There was bilateral lower extremity erythema right greater than left and bilateral lower extremity pitting edema. On November 08 the sodium was 132 potassium 5.5 chloride 101 total CO2 22 BUN 81 creatinine 2.67 EGFR was 17 mL/min magnesium 2.9 mg/dL. The white blood cell count was 13.1 hemoglobin 10.1 hematocrit 30.1 platelet count 204. There were 9.8% absolute neutrophils and 75% neutrophils. Sedimentation rate was 89. Repeat laboratories today on November 09 show a white blood cell count 11.2 hemoglobin 10 hematocrit 30 platelet count 27 again 75.7% neutrophils and 8.5% absolute neutrophils. The sodium was 135 potassium 5.3 chloride 108 total CO2 22 BUN 76 creatinine 2.35 EGFR 20 mL/min C-reactive protein 17.6. A swab of the right and left heel were purulent showing 10-24 white blood cells per low power field. There were many g negative cocci bacilli and moderate Gram-negative cocci bacilli on the right and left ankle, respectively. The patient was started on ceftriaxone and vancomycin. The patient has been normotensive; most recently 142/69. Outpatient medications had occurred among others losartan 100 mg daily. An x-ray of the right and left foot showed extensive vascular calcifications. There was decreased bony mineralization in the foot limiting evaluation for osteomyelitis. There was no definite focal erosive or destructive changes in the feet. This morning she is awake alert. She denies chest pain chest pressure or vomiting. She had an episode of nausea earlier today. The lower extremities are painful right greater than left. PMH: 1. Stage 3 B Chronic kidney disease. Nephrologic investigations in May of 2020 included an LUISITO screen which was positive and anti double-stranded DNA antibody titer that was elevated to 27. Rheumatoid factor less than 10. 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 A urinalysis on 05/27/2020 showed trace protein greater than 1000 mg/dL of glucose less than 1 red blood cell and 1 white blood cell per high-power field the urine protein creatinine ratio was 0.98 gram/gram predicting that in 24 hours, approximately 980 mg of protein would be excreted. Some early serologies include a C-reactive protein which was 2.0. An LUISITO screen which was positive. Anti double-stranded DNA was 27. Rheumatoid factor was less than that. A urinalysis of 04/17/2019 showed 100 mg/dL protein. Hyperkalemia October 2024 2. Type 1 diabetes mellitus 3. Hypertension 4. Hyperlipidemia 5. Hypothyroidism 6. History of distal left ureteral calculus followed by Dr. Harris. A CT scan of the abdomen pelvis on November 01, 2019 showed a left, 2 mm, ureterovesical junction stone. She was treated transiently with Flomax but stopped it because it made her feel poorly. By 09/04/2019 was felt that she had spontaneously passed the stone. 7.Osteoarthritis. Multiple joints affected, a right total knee arthroplasty has been recommended by Dr. Arevalo. 8. Cervical radiculopathy status post anterior approach diskectomy 9. History of C difficile diarrhea 10. Anemia October 2024 11. Thrombocytopenia October 2024 PSH: Past Surgical History: Procedure Laterality Date APPENDECTOMY 1951 SECTION x2 DILATION AND CURETTAGE OF UTERUS DISCECTOMY EYE SURGERY NECK SURGERY TONSILLECTOMY * No surgery found * Allergies: Allergies Allergen Reactions Lisinopril Cough Diatrizoate Meglumine Rash Iodine Rash Levofloxacin In D5w Rash Propoxyphene Rash Home Meds: Medications Prior to Admission Medication Sig Dispense Refill Last Dose/Taking furosemide (LASIX) 20 mg tablet Take 2 tablets (40 mg total) by mouth daily with breakfast AND 1 tablet (20 mg total) Daily before evening meal. 40 mg in am and 20 mg in pm. 90 tablet 6 11/08/2024 insulin aspart U-100 (NovoLOG) 100 unit/mL injection Inject under the skin in the morning and at noon and in the evening. Inject before meals. As directed per sliding scale. 11/08/2024 insulin detemir (LEVEMIR FLEXPEN SUBQ) Inject 60 Units under the skin in the morning. 11/08/2024 levothyroxine (SYNTHROID, LEVOTHROID) 25 MCG tablet Take 1 tablet (25 mcg total) by mouth nightly. 11/08/2024 losartan (COZAAR) 100 mg tablet take 1 tablet by mouth in the morning 90 tablet 3 11/08/2024 magnesium oxide (MAGOX) 400 mg tablet Take 1 tablet (400 mg total) by mouth in the morning. 90 tablet 3 11/08/2024 pantoprazole (PROTONIX) 40 mg EC tablet Take 1 tablet (40 mg total) by mouth in the morning. 11/08/2024 zolpidem (AMBIEN) 10 mg tablet Take 1 tablet (10 mg total) by mouth nightly as needed for sleep. 11/07/2024 acetaminophen-codeine (TYLENOL #3) 300-30 mg per tablet Take 1 tablet by mouth every 4 (four) hours as needed for pain. LORazepam (ATIVAN) 0.5 mg tablet Take 1 tablet (0.5 mg total) by mouth daily as needed. Inpatient Meds: cefTRIAXone (ROCEPHIN) IV, 2,000 mg, intravenous, Q24H heparin (porcine), 5,000 Units, subcutaneous, Q8H MARLENE insulin glargine, 60 Units, subcutaneous, Daily insulin lispro, 2-10 Units, subcutaneous, With meals and nightly levothyroxine, 25 mcg, oral, Daily pantoprazole, 40 mg, oral, QAM AC sodium chloride, 3 mL, intravenous, Q12H MARLENE vancomycin, , intravenous, Dosed by Levels Inpatient Infusion Meds: dextrose 5 % in water, 100 mL/hr sodium chloride 0.9 %, 20 mL/hr Nutrition: Dietary Orders (From admission, onward) Start Ordered 11/08/241806 Adult diet Regular Texture; Consistent Carb 210 grams (1800 kcal) Diet effective now Question Answer Comment Diet Type: Regular Texture Carbohydrate Modifiers: Consistent Carb 210 grams (1800 kcal) 11/08/241806 Social History: Social History Socioeconomic History Marital status: Spouse name: Not on file Number of children: Not on file Years of education: Not on file Highest education level: Not on file Occupational History Not on file Tobacco Use Smoking status: Former Smokeless tobacco: Never Vaping Use Vaping status: Never Used Substance and Sexual Activity Alcohol use: Never Drug use: Never Sexual activity: Defer Other Topics Concern Caffeine Use Yes Comment: coffee Social History Narrative Not on file Social Drivers of Health Financial Resource Strain: Not on file Food Insecurity: No Food Insecurity (11/08/2024) Hunger Screening Food Insecurity - Worry: Never True Food Insecurity - Inability: Never True Transportation Needs: No Transportation Needs (11/08/2024) PRAPARE - Transportation Lack of Transportation (Medical): No Lack of Transportation (Non-Medical): No Physical Activity: Not on file Stress: Not on file Social Connections: Not on file Interpersonal Safety: Not At Risk (11/08/2024) Humiliation, Afraid, Rape, and Kick questionnaire Fear of Current or Ex-Partner: No Emotionally Abused: No Physically Abused: No Sexually Abused: No Housing Instability: Low Risk (11/08/2024) Housing Instability Housing Instability: No Family History: Family History Problem Relation Age of Onset Cancer Mother Ovarian cancer Mother Heart disease Father Review of Systems: Constitutional: No fevers chills or night sweats no weight loss Eyes: No scleral icterus no conjunctiva pallor is no visual changes no blurry vision Ears, nose, mouth, throat, and face: No ear pain no mucositis no sore throat Integument: Positive for lower extremity cellulitis and stage I pressure ulcerations of the bilateral ankles. Vascular: Positive for lymphedema Respiratory: No shortness of breath no hemoptysis, no cough, no wheezing Cardiovascular: No chest pain, no palpitations Gastrointestinal: No nausea or vomiting no abdominal pain, no abdominal cramping, normal bowel movements, no diarrhea or constipation Integument/breast: No rashes, and no suspicious lesions or ecchymosis Hematologic/lymphatic: No easy bruising or bleeding, and noted no enlarged lymph nodes Neurological: No headaches, no gait imbalance, no cognitive changes, no focal motor weakness Behavioral/Psych: No significant anxiety or depression no hallucinations Physical Exam: Admission Weight: Weight: 105.6 kg (232 lb 14.4 oz) Vitals: Vitals: 11/08/24 1645 11/08/24 1736 11/08/24 1939 11/08/24 2306 BP: 151/83 146/66 132/55 158/59 Pulse: 82 97 95 Resp: 18 20 18 Temp: 36.5 C (97.7 F) 36.4 C (97.5 F) 36.7 C (98 F) TempSrc: Oral Oral Oral SpO2: 97% 98% 97% Weight: 105.6 kg (232 lb 14.4 oz) Height: 149.9 cm (4' 11 ) INTAKE/OUTPUT: Intake/Output Summary (Last 24 hours) at 11/09/2024 0852 Last data filed at 11/08/2024 2237 Gross per 24 hour Intake 300.79 ml Output 3 ml Net 297.79 ml General Appearance: Awake alert oriented 83-year-old woman acute r espiratory distress Head: Normocephalic, without obvious abnormality, atraumatic Eyes: conjunctivae/corneas clear ENT: limited exam Neck: limited exam Lungs: clear to auscultation bilaterally per call or contact centre operator: regular rate and rhythm, S1, S2 normal, no murmur, click, rub or gallop per RN Abdomen: soft, non-tender; bowel sounds normal; no masses, no organomegaly per RN Extremities: extremities normal, atraumatic, no cyanosis bilateral lower extremity Fahad wraps in place. She has pitting pretibial edema above the Fahad wraps. There is no erythema above the Fahad wraps. Skin: Skin color, texture, turgor normal. No rashes or lesions Per RN Neurologic: Alert and oriented X 3, Labs: Results from last 7 days Lab Units 11/09/24 0612 11/08/24 1622 11/08/24 1320 SODIUM mmol/L 135 -- 132* POTASSIUM mmol/L 5.3* 5.3* 5.5* CHLORIDE mmol/L 106 -- 101 CO2 mmol/L 22 -- 22 BUN mg/dL 76* -- 81* CREATININE mg/dL 2.35* -- 2.67* CALCIUM mg/dL 8.5 -- 8.7 MAGNESIUM mg/dL 2.9* -- 2.9* Results from last 7 days Lab Units 11/09/24 0633 11/08/24 1320 WBC x10E9/L 11.2* 13.1* HEMOGLOBIN g/dL 10.0* 10.1* HEMATOCRIT % 30.0* 30.1* PLATELETS X10E9/L 27* 204 Results from last 7 days Lab Units 11/09/24 0612 11/08/24 1320 MAGNESIUM mg/dL 2.9* 2.9* Lab Results Component Value Date PTH 161 (H) 02/07/2024 CALCIUM 8.5 11/09/2024 No results found for: IRON , TIBC , FERRITIN IMPRESSION 1. Acute on stage IIIB chronic kidney disease: The differential includes: 1. Prerenal factors. 2. Infection related acute tubular necrosis. 3. Adverse effect of the angiotensin receptor sree losartan. Her stage IIIB chronic kidney disease has been attributed to nephrosclerosis, diabetic nephropathy or renovascular disease. 2. Hyperkalemia: Multifactorial contributing factors include: 1. Acute kidney injury. 2. Adverse effect of the angiotensin receptor sree losartan. 3. Lower extremity cellulitis 4. Anemia: Likely due in part to chronic kidney disease. 5. Thrombocytopenia: Etiology to be determined. Sepsis, DIC hemolysis. Note peripheral blood smear has been ordered to screen for stigmata of hemolysis. 6. Type 2 diabetes Mellitus 7. Primary hypertension 8. Hyperlipidemia 9. Hypothyroidism 10. History of distal left ureteral calculus. CT scan of the abdomen and pelvis October 2019 showed a left-sided 2 mm ureterovesical junction stone. She was treated transiently with Flomax. By November 18, 2019 the stone passed spontaneously. 11. Osteoarthritis of multiple joints. Status post right total knee arthroplasty recommended by Dr. Arevalo. 12. History of cervical radiculopathy status post anterior approach diskectomy 13. History of C difficile diarrhea RECOMMENDATION 1. Urinalysis with microscopic exam of the urine sediment. 2. Check urine sodium creatinine protein 3. Lokelma 10 g p.o. now. 4. Low-potassium diet 5. Discontinue losartan as you have done 6. Continue treatment of underlying presumed cellulitis. 7. Monitor serial renal chemistries. 8. Will reintroduce loop diuretic tomorrow. CLAUDIA TAYLOR MD,PhD. [facility] ANY QUESTIONS FEEL FREE TO CALL: 1. OFFICE [phone] 2. ANSWERING SERVICE: [phone] Problem: Safety Goal: Patient will be injury free during hospitalization Description: INTERVENTIONS: 1. Assess patient's risk for falls and implement fall prevention plan of care per policy 2. Provide and maintain a safe environment 3. Proper use of double Identifiers 4. Medication administration using the 5 rights 5. Hand hygiene 6. Specimens are labeled at the bedside 7. Instruct patient/ patient employee representative about use of safety devices 8. Include patient/ patient employee representative in decisions related to safety Outcome: Progressing Note: Evaluation of progress towards goal: Pt oriented to own abilities Problem: Infection Goal: Absence of infection during hospitalization Description: INTERVENTIONS 1. Assess and monitor for signs and symptoms of infection. 2. Monitor lab/diagnostic results. 3. Monitor all insertion sites i.e., indwelling lines, tubes and drains. 4. Monitor endotracheal (as able) and nasal secretions for changes in amount and color. 5. Administer medications as ordered. 6. Instruct and encourage patient and family to use good hand hygiene technique. 7. Identify and instruct patient/patient employee representative in use of appropriate isolation precautions for identified infection/symptoms. 8. Provide and discuss with patient/patient employee representative on educational MDRO sheet. 9. Encourage and monitor nutritional status daily and consult mine inspector if indicated. 10. Implement neutropenic guidelines as needed. Outcome: Progressing Note: Evaluation of progress towards goal: IV abt cont Problem: Knowledge Deficit Goal: Patient/patient employee representative demonstrates understanding of disease process, treatment plan, medications, and discharge instructions Description: INTERVENTIONS 1. Complete learning assessment and assess knowledge base 2. Provide teaching at level of understanding 3. Provide teaching via preferred learning method(s) Outcome: Progressing Note: Evaluation of progress towards goal: In agreement with plan of care Problem: Pain Goal: Patient goal is pain score less than 4, able to rest, and participant in treatment plan as appropriate Description: INTERVENTIONS: 1. Encourage patient or legal employee representative to report early pain and ask for pain medicine when needed 2. Assess pain using appropriate pain scale and include the scale used when documenting 3. Administer analgesics based on type and severity of pain and evaluate response within appropriate time frame 4. Implement non-pharmacological measures as appropriate and evaluate response 5. Consider cultural and social influences on pain and pain management 6. Notify LIP if interventions ineffective or patient reports new pain 7. Monitor vital signs including pulse ox, end-tidal CO2 based on pain intervention 8. Reassess pain per policy 9. Teach patient or legal employee representative interventions for comforting Outcome: Progressing Note: Evaluation of progress towards goal: will continue current regimen Problem: Safety Goal: Patient will be injury free during hospitalization Description: INTERVENTIONS: 1. Assess patient's risk for falls and implement fall prevention plan of care per policy 2. Provide and maintain a safe environment 3. Proper use of double Identifiers 4. Medication administration using the 5 rights 5. Hand hygiene 6. Specimens are labeled at the bedside 7. Instruct patient/ patient employee representative about use of safety devices 8. Include patient/ patient employee representative in decisions related to safety Outcome: Progressing Note: Evaluation of progress towards goal: will consult PT/OT Problem: Infection Goal: Absence of infection during hospitalization Description: INTERVENTIONS 1. Assess and monitor for signs and symptoms of infection. 2. Monitor lab/diagnostic results. 3. Monitor all insertion sites i.e., indwelling lines, tubes and drains. 4. Monitor endotracheal (as able) and nasal secretions for changes in amount and color. 5. Administer medications as ordered. 6. Instruct and encourage patient and family to use good hand hygiene technique. 7. Identify and instruct patient/patient employee representative in use of appropriate isolation precautions for identified infection/symptoms. 8. Provide and discuss with patient/patient employee representative on educational MDRO sheet. 9. Encourage and monitor nutritional status daily and consult mine inspector if indicated. 10. Implement neutropenic guidelines as needed. Outcome: Progressing Note: Evaluation of progress towards goal: Continue atb Problem: Knowledge Deficit Goal: Patient/patient employee representative demonstrates understanding of disease process, treatment plan, medications, and discharge instructions Description: INTERVENTIONS 1. Complete learning assessment and assess knowledge base 2. Provide teaching at level of understanding 3. Provide teaching via preferred learning method(s) Outcome: Progressing Note: Evaluation of progress towards goal: continue daily education Problem: Discharge Planning Goal: Discharge to post-acute care, other facility, or home with appropriate resources Description: Patient's goal is: INTERVENTIONS 1. Conduct assessment to determine patient/family and health care team treatment goals, and need for post-acute services based on payer coverage, community resources, and patient preferences, and barriers to discharge 2. Coordinate with Social work, Care Navigation, and Utilization Review to arrange appropriate level of services according to patient's needs based on patient preference and payer coverage in collaboration with the physician and health care team 3. Address psychosocial, clinical, and financial barriers to discharge as identified in assessment in conjunction with the patient/family and health care team 4. Consult appropriate ancillary services (i.e.. PT/OT/ST, etc) as needed 5. Communicate with and update the patient/family, physician, and health care team regarding progress on the discharge plan 6. Identify discharge learning needs (meds, wound care, etc). 7. Arrange for needed discharge transportation as appropriate Outcome: Progressing Note: Evaluation of progress towards goal: rehabilitation caseworker to f/u Problem: Potential for Compromised Skin Integrity Goal: Skin integrity is maintained or improved Description: Patient's goal is: INTERVENTIONS 1. Perform initial skin assessment on admission and as needed 2. Turn patient every 2 hours and PRN 3. Relieve pressure to bony prominences 4. Avoid shearing 5. Keep skin clean and dry 6. Alternate a full bath with partial baths for elderly 7. Apply lotion/moisturizer on skin 8. Monitor patient's hygiene practices 9. Float heels 10. Collaborate with interdisciplinary team and initiate plans and interventions as needed Outcome: Progressing Note: Evaluation of progress towards goal: continue daily skin care Goal: Patient's nutritional intake is adequate Description: Patient's goal is: INTERVENTIONS 1. Assess and monitor food intake and supplements, patient food preferences, nausea, vomiting, labs, oral cavity (gums, teeth, tongue, mucosa), proper denture fit, and cultural beliefs 2. Monitor for signs of hypoglycemia and hyperglycemia 3. Collaborate with interdisciplinary team and initiate plan and interventions as ordered 4. Monitor patient's weight 5. Assist patient with meals/food selection 6. Assist patient with eating 7. Allow adequate time for meals 8. Provide pleasant environment during mealtime 9. Increase social contact during mealtimes 10. Plan activities to conserve energy 11. Encourage/perform oral hygiene as appropriate 12. Encourage patient to take dietary supplement as ordered 13. Collaborate with clinical mine inspector 14. Include patient/ patient's employee representative in decisions related to nutrition Outcome: Progressing Note: Evaluation of progress towards goal: continue monitoring intake Problem: Urinary Incontinence Goal: Perineal skin integrity is maintained or improved Description: INTERVENTIONS 1. Assess genitourinary system, perineal skin, labs (urinalysis), and history of incontinence to include past management, aggravating, and alleviating factors 2. Keep skin clean and dry 3. Apply skin protectant 4. Develop skin care regimen 5. Provide privacy when changing patients incontinence device to maintain their dignity 6. Consider placing an indwelling catheter 7. Collaborate with interdisciplinary team and initiate plans and interventions as needed Outcome: Progressing Note: Evaluation of progress towards goal: continue external cath documented in this encounter [facility] 11-13-2024 Procedure note Midline placement note: Dynamic institute scientist: Georgina Valenzuela RN Prescribed IV therapy: cefepime x11 days History / Labs / Allergies were reviewed prior to insertion Any contraindications/considerations prior to placement: NA Approvals required before insertion: Nephrology by MD Perez Bedside time out performed with nurse Kathy utilizing two identifiers Consent for MST Powermidline completed by patient and is located in the chart. Midline: Product type: 4 fr SL Bard Powermidline inserted into the right basilic vein Ref: [id number] Lot: [id number] Exp: 12-14-2025 Catheter length 10 cm with 0 cm external Number of attempts: 1 Dressed per protocol with statlock and CHG tegaderm Lidocaine used during procedure: intradermal administration conc 1% approximately 1mL Lot #: [id number] Exp: 08-15-2026 Midline catheter tip is located at the level of the axilla and was placed with a brisk blood return. Line is immediately released for use. Per facility policy midline is okay for 30 days use but is to be removed due to signs of infiltration / phlebitis / extravasation. Line is to be used as a peripheral catheter with caution for any vesicant administration. Per facility policy and product IFU line is okay for lab draws if a blood return is present. Midline is okay to use if no blood return is present as long as there are no signs/symptoms of infiltration / phlebitis / extravasation including but not limited to leaking and/or redness at the insertion site and pain during infusion. documented in this encounter [facility] 11-13-2024 Hospital course Narrative Images from the original note were not included. [facility] [address] [facility] [id number] Hospital Medicine Discharge Summary Patient: Rupa Gutierrez Date of : 1940 Room: / Encounter date: 11/13/24 Hospital Day: 6 DATE OF ADMISSION: 11/08/2024 DATE OF DISCHARGE:11/13/2024 DISCHARGE DIAGNOSES Principal Problem: Pressure [place] of right [place], unstageable [place] Problems: Lymphedema Diabetes mellitus type I [place] Hyperkalemia Hypothyroid PVD (peripheral vascular disease) Hyponatremia Venous stasis ulcer of right lower leg with edema of right lower leg [place] Venous stasis ulcer of left lower leg with edema of left lower leg [place] CONSULTANTS none PCP: ANGELINE BRIDGES MD PROCEDURES none HOSPITAL COURSE SUMMARY Rupa Gutierrez is a 83 y.o. female who presents with bilateral lower leg pain. Patient has recently been undergoing antibiotic treatment for bilateral lower leg cellulitis. Patient was recently discharged from the hospital on Keflex. Has a history of lymphedema, diabetes, congestive heart failure, hypertension, hypothyroidism. WBC 13.1, hemoglobin 10.1, sodium 132, potassium 5.5, creatinine 2.67, BUN 81, magnesium 2.9, CRP 16.6, procalcitonin 0.27. X-ray of the left foot revealed: Decreased bony mineralization in the foot limits evaluation for osteomyelitis. No definite focal erosive or destructive changes in the foot. Extensive vascular calcifications. Circumferential soft tissue swelling in the ankle. Xray right foot revealed- Diffusely decreased bony mineralization limits evaluation for osteomyelitis. No focal erosive or destructive changes identified in the foot.Plantar calcaneal and Achilles enthesophytes.Circumferential soft tissue swelling in the ankle. Extensive vascular calcifications. Admitted for suspected cellulitis/osteomyelitis and /JANNIE on CKD. Cellulitis lower extremity Lymphedema Vanco discontinued Wound care daily CRP 17.6> 14.5>>10.9 Blood culture in process-NGTD x 4 days Lactate 0.9 MRI bilateral lower leg and feet ordered-negative for MRI Lyrica started for neuropathic pain Wound culture growing pseudomonas Changed Rocephin to cefepime- d/c on 11 more days of cefepime Picc line ordered Podiatry consulted JANNIE on CKD Monitor kidney function daily Avoid nephrotoxic agents Nephrology following Daily weight and I/O Improving Lasix 40 bid can be discharged with Nj with outpatient urology follow-up. Will need basic metabolic panel and magnesium 1 week after discharge Follow up nephrology 3-4 weeks after discharge Thrombocytopenia Platelets improving Hem/onc consulted Hgb stable D/c heparin PF4 antibody negative Peripheral smear completed Essential Hypertension Normotensive Hold losartan Dm type 1 Continue home Lantus Monitor blood glucose a.c. and HS cover sliding scale insulin Hyperkalemia resolved Nephrology following Continue loop diuretic today per nephrology Low potassium diet Nj in place per nephrology Bmp 1 week Follow up nephrology 3-4 weeks Continue aldactone Hypothyroidism Continue home Synthroid Urinary retention D/c with nj F/u urology Flomax Pt instructed to follow up with PCP in one week. Instructed to seek medical attention if symptoms persist or worsen or if you develop chest pain or shortness of breath. Sepsis suspected, no-not clinically evident at this time. Discharge Day Progress Note 11/13/24 No overnight events and remains hemodynamically stable. Review of Systems Constitutional: Negative for chills and fever. HENT: Negative for ear pain and sore throat. Eyes: Negative for pain and visual disturbance. Respiratory: Negative for cough and shortness of breath. Cardiovascular: Negative for chest pain and palpitations. Gastrointestinal: Negative for abdominal pain and vomiting. Genitourinary: Negative for dysuria and hematuria. Musculoskeletal: Positive for arthralgias. Negative for back pain. Skin: Negative for color change and rash. Neurological: Positive for numbness (neuropathy to ble). Negative for seizures and syncope. All other systems reviewed and are negative. BP 140/52 Pulse 100 Temp 36.8 C (98.2 F) (Oral) Resp 18 Ht 149.9 cm (4' 11 ) Wt 101.8 kg (224 lb 6.4 oz) SpO2 95% BMI 45.32 kg/m Temp: [36.7 C (98 F)-36.8 C (98.3 F)] 36.8 C (98.2 F) Pulse: [93-100] 100 Resp: [17-20] 18 BP: (135-181)/(52-98) 140/52 SpO2: [95 %-99 %] 95 % O2 Device: None (Room air) O2 Flow Rate (L/min): [0 L/min] 0 L/min Intake/Output Summary (Last 24 hours) at 11/13/2024 1225 Last data filed at 11/13/2024 0800 Gross per 24 hour Intake 185.35 ml Output 2125 ml Net -1939.65 ml Physical Exam Vitals and nursing note reviewed. Constitutional: Appearance: She is well-developed. She is obese. HENT: Head: Normocephalic and atraumatic. Nose: Nose normal. Eyes: Pupils: Pupils are equal, round, and reactive to light. Cardiovascular: Rate and Rhythm: Normal rate and regular rhythm. Heart sounds: Normal heart sounds. No murmur heard. Pulmonary: Effort: Pulmonary effort is normal. No respiratory distress. Breath sounds: Normal breath sounds. No wheezing. Abdominal: General: Bowel sounds are normal. Palpations: Abdomen is soft. Tenderness: There is no abdominal tenderness. Musculoskeletal: General: Normal range of motion. Cervical back: Neck supple. Lymphadenopathy: Cervical: No cervical adenopathy. Skin: General: Skin is warm and dry. Findings: No rash. Comments: Wounds to BLE Neurological: Mental Status: She is alert and oriented to person, place, and time. Cranial Nerves: No cranial nerve deficit. Motor: Weakness present. Code Status: Full Code Labs Recent Results (from the past 48 hours) Bedside Glucose *Place/Obtain serum glucose if >500 per glucometer. Collection Time: 11/11/24 12:28 PM Result Value Ref Range Bedside Glucose (POC) 240 (H) 65 - 99 mg/dL Bedside Glucose *Place/Obtain serum glucose if >500 per glucometer. Collection Time: 11/11/24 4:53 PM Result Value Ref Range Bedside Glucose (POC) 214 (H) 65 - 99 mg/dL Bedside Glucose *Place/Obtain serum glucose if >500 per glucometer. Collection Time: 11/11/24 8:51 PM Result Value Ref Range Bedside Glucose (POC) 248 (H) 65 - 99 mg/dL Comprehensive metabolic panel Collection Time: 11/12/24 5:12 AM Result Value Ref Range SODIUM 134 134 - 146 mmol/L POTASSIUM 3.5 3.5 - 5.0 mmol/L CHLORIDE 109 98 - 109 mmol/L CARBON DIOXIDE 25 22 - 32 mmol/L ANION GAP 0 (L) 5 - 15 mmol/L BLOOD UREA NITROGEN 37 (H) 5 - 27 mg/dL CREATININE 1.39 (H) 0.40 - 1.00 mg/dL GLUCOSE 73 65 - 99 mg/dL CALCIUM 7.9 (L) 8.5 - 10.5 mg/dL TOTAL PROTEIN 6.3 6.0 - 8.0 g/dL ALBUMIN 2.6 (L) 3.2 - 5.3 g/dL ALKALINE PHOSPHATASE 63 39 - 130 U/L AST 12 <=41 U/L ALT 14 <=31 U/L BILIRUBIN,TOTAL 0.6 0.3 - 1.2 mg/dL EGFR Non-Race Dependent 38 (L) >=60 ml/min/1.73sq.m Magnesium Collection Time: 11/12/24 5:12 AM Result Value Ref Range MAGNESIUM 2.2 1.8 - 2.6 mg/dL CBC auto differential Collection Time: 11/12/24 5:12 AM Result Value Ref Range WBC 11.1 (H) 4 - 11 x10E9/L RBC Count 2.79 (L) 3.8 - 5.2 X10E12/L Hemoglobin 8.6 (L) 11.7 - 15.5 g/dL Hematocrit 25.1 (L) 35 - 47 % MCV 90 80 - 100 fL MCH 30.7 27 - 34 pg MCHC 34.1 32 - 36 g/dL RDW 13.4 11.5 - 15 % Platelet Count 37 (L) 150 - 450 X10E9/L MPV 9.4 7 - 12 fL Neutrophils Relative 60.8 % Lymphocytes Relative 21.9 % Monocytes Relative 13.9 % Eosinophils Relative 2.6 % Basophils Relative 0.8 % Neutrophils Absolute (A) 6.7 (H) 1.5 - 6.6 10*3/uL Lymphocytes Absolute 2.4 1.0 - 3.5 10*3/uL Monocytes Absolute 1.5 (H) 0.0 - 0.9 10*3/uL Eosinophils Absolute 0.3 0.0 - 0.4 10*3/uL Basophils Absolute 0.1 0.0 - 0.2 10*3/uL Differential Type AUTOMATED DIFFERENTIAL Phosphorus Collection Time: 11/12/24 5:12 AM Result Value Ref Range PHOSPHORUS 2.8 2.4 - 4.9 mg/dL Extra Tubes Collection Time: 11/12/24 5:15 AM Narrative The following orders were created for panel order Extra Tubes. Procedure Abnormality Status --------- ------ Light Blue Top[[id number]] Final result Please view results for these tests on the individual orders. Light Blue Top Collection Time: 11/12/24 5:15 AM Result Value Ref Range Extra Tube Auto Resulted Bedside Glucose *Place/Obtain serum glucose if >500 per glucometer. Collection Time: 11/12/24 12:13 PM Result Value Ref Range Bedside Glucose (POC) 147 (H) 65 - 99 mg/dL Bedside Glucose *Place/Obtain serum glucose if >500 per glucometer. Collection Time: 11/12/24 4:45 PM Result Value Ref Range Bedside Glucose (POC) 278 (H) 65 - 99 mg/dL Bedside Glucose *Place/Obtain serum glucose if >500 per glucometer. Collection Time: 11/12/24 8:19 PM Result Value Ref Range Bedside Glucose (POC) 201 (H) 65 - 99 mg/dL Comprehensive metabolic panel Collection Time: 11/13/24 5:26 AM Result Value Ref Range SODIUM 137 134 - 146 mmol/L POTASSIUM 3.4 (L) 3.5 - 5.0 mmol/L CHLORIDE 103 98 - 109 mmol/L CARBON DIOXIDE 27 22 - 32 mmol/L ANION GAP 7 5 - 15 mmol/L BLOOD UREA NITROGEN 31 (H) 5 - 27 mg/dL CREATININE 1.34 (H) 0.40 - 1.00 mg/dL GLUCOSE 93 65 - 99 mg/dL CALCIUM 8.4 (L) 8.5 - 10.5 mg/dL TOTAL PROTEIN 6.4 6.0 - 8.0 g/dL ALBUMIN 2.6 (L) 3.2 - 5.3 g/dL ALKALINE PHOSPHATASE 63 39 - 130 U/L AST 13 <=41 U/L ALT 11 <=31 U/L BILIRUBIN,TOTAL 0.5 0.3 - 1.2 mg/dL EGFR Non-Race Dependent 39 (L) >=60 ml/min/1.73sq.m Magnesium Collection Time: 11/13/24 5:26 AM Result Value Ref Range MAGNESIUM 1.9 1.8 - 2.6 mg/dL CBC auto differential Collection Time: 11/13/24 5:26 AM Result Value Ref Range WBC 10.8 4 - 11 x10E9/L RBC Count 2.95 (L) 3.8 - 5.2 X10E12/L Hemoglobin 9.0 (L) 11.7 - 15.5 g/dL Hematocrit 26.5 (L) 35 - 47 % MCV 90 80 - 100 fL MCH 30.4 27 - 34 pg MCHC 33.8 32 - 36 g/dL RDW 13.4 11.5 - 15 % Platelet Count 64 (L) 150 - 450 X10E9/L MPV 8.7 7 - 12 fL Neutrophils Relative 61.0 % Lymphocytes Relative 22.6 % Monocytes Relative 12.1 % Eosinophils Relative 2.9 % Basophils Relative 1.4 % Neutrophils Absolute (A) 6.6 1.5 - 6.6 10*3/uL Lymphocytes Absolute 2.4 1.0 - 3.5 10*3/uL Monocytes Absolute 1.3 (H) 0.0 - 0.9 10*3/uL Eosinophils Absolute 0.3 0.0 - 0.4 10*3/uL Basophils Absolute 0.1 0.0 - 0.2 10*3/uL Differential Type AUTOMATED DIFFERENTIAL Phosphorus Collection Time: 11/13/24 5:26 AM Result Value Ref Range PHOSPHORUS 2.7 2.4 - 4.9 mg/dL Extra Tubes Collection Time: 11/13/24 5:26 AM Narrative The following orders were created for panel order Extra Tubes. Procedure Abnormality Status --------- ------ Light Blue Top[[id number]] Final result Please view results for these tests on the individual orders. Light Blue Top Collection Time: 11/13/24 5:26 AM Result Value Ref Range Extra Tube Auto Resulted Bedside Glucose *Place/Obtain serum glucose if >500 per glucometer. Collection Time: 11/13/24 12:15 PM Result Value Ref Range Bedside Glucose (POC) 158 (H) 65 - 99 mg/dL Radiology MR foot right without contrast Result Date: 11/11/2024 Narrative: History: Pain.Swelling. Edema MRI Right Foot Comparison: Technique: Multiplanar multisequence imaging of the foot was obtained without contrast. Findings/impression: Study is significantly degraded by motion artifact. Patient had involuntary motion and could not tolerate the examination. The examination was prematurely terminated. Based on the sequences obtained no obvious evidence of osteomyelitis is seen involving the metatarsals or digits. No joint effusion. Nonspecific soft tissue edema is noted dorsally but also along the plantar aspect. Please correlate with the clinical picture.. If in the future the patient tolerated imaging we would be happy reimage the patient. No obvious evidence of abscess. Hampered study Finalized by Dinorah Kaur MD on 11/11/2024 2:06 PM MR lower leg right without contrast Result Date: 11/10/2024 Narrative: MRI right lower leg without contrast HISTORY: Infection, osteomyelitis. COMPARISON: None available TECHNIQUE: Multiplanar, multisequence MR imaging was performed according to standard protocol. Incomplete exam due to patient intolerance. FINDINGS: Regions of skin thickening, edematous changes of the lower legs bilaterally without drainable fluid collection. No fracture or malalignment. No evidence of osteomyelitis. IMPRESSION: 1. Findings of cellulitis, no abscess, no evidence of osteomyelitis. Finalized by Chaka Patel MD on 11/10/2024 1:33 PM MR lower leg left without contrast Result Date: 11/10/2024 Narrative: MR LOWER LEG LT WO CONT CLINICAL INFORMATION: suspected osteomyelitis COMPARISON: None. PROCEDURE: Routine MRI of the left lower extremity was obtained without contrast. Multisequence, multiplanar imaging obtained. FINDINGS: Please note, only localizer, T1 coronal, STIR coronal, T2 fat-sat axial, and T1 axial images were able to be obtained. There is extensive motion artifact degrading assessment. There is edema present in the soft tissues. There is diffuse muscular atrophy. Severe degenerative changes of the left knee joint. No fluid collection is identified. No marrow signal replacement or fracture. IMPRESSION: * Suboptimal exam due to artifact. * No marrow signal replacement or significant bone marrow edema to suggest osteomyelitis. * Extensive edema in the soft tissues, correlate for cellulitis. Finalized by Paulino Correa MD on 11/10/2024 1:23 PM X-ray foot right minimum 3 views Result Date: 11/08/2024 Narrative: XR FOOT RT MIN 3 VWS 11/08/2024 1:36 PM INDICATION: Foot wounds, rule out osteo COMPARISON: Right foot 04/10/2023 TECHNIQUE: 3 views of the right foot were obtained Impression: 1. Diffusely decreased bony mineralization limits evaluation for osteomyelitis. No focal erosive or destructive changes identified in the foot. 2. Plantar calcaneal and Achilles enthesophytes. 3. Circumferential soft tissue swelling in the ankle. Extensive vascular calcifications. Finalized by Randolph Ramirez MD on 11/08/2024 1:57 PM X-ray foot left minimum 3 views Result Date: 11/08/2024 Narrative: XR FOOT LT MIN 3 VWS 11/08/2024 1:35 PM INDICATION: Wounds on foot, rule out osteo COMPARISON: None TECHNIQUE: 3 views of the left foot were obtained IMPRESSION: 1. Decreased bony mineralization in the foot limits evaluation for osteomyelitis. No definite focal erosive or destructive changes in the foot. 2. Extensive vascular calcifications. Circumferential soft tissue swelling in the ankle. Finalized by Randolph Ramirez MD on 11/08/2024 1:44 PM X-ray wrist right minimum 3 views Result Date: 10/21/2024 Narrative: XR WRIST 3+ VIEWS RIGHT 10/19/2024 2:08 PM CLINICAL INDICATIONS: Pain. COMPARISON: None Impression: FINDINGS/IMPRESSION: Distal radius fracture with apex medial and palmar angulation, slight impaction, slight dorsal displacement of the major fracture fragment. Resultant possible ovarian cyst. Soft tissue swelling about the wrist. Vascular calcific dictation. Osteopenia. Moderate first CMC osteoarthrosis. Electronically signed: Kaushik Mcgee MD. X-ray forearm right 2 views Result Date: 10/21/2024 Narrative: XR FOREARM 2 VIEWS RIGHT 10/19/2024 2:08 PM CLINICAL INDICATIONS: Wrist pain, injury. COMPARISON: None Impression: FINDINGS/IMPRESSION: Distal radius fracture, wrist radiographs dictated centrally. No acute fracture or dislocation of the radius or ulnar diaphyses. Vascular calcifications. Osteopenia. Well-corticated osseous excrescence about the lateral distal humeral epicondyle, presumably related to tendinopathy. Olecranon enthesophyte. Electronically signed: Kaushik Mcgee MD. DISCHARGE INSTRUCTION Disposition: shelter facility Condition: Stable Activity: activity as tolerated Diet: Adult diet Regular Texture; Consistent Carb 210 grams (1800 kcal) Adult nutrition supplements Follow up: ANGELINE BRIDGES MD within 7-14 days. Nephrology 3-4 weeks Labs/Imaging/Pathology: CBC and CMP twice a week while on antibiotics Discharge Medications: Medication List START taking these medications Instructions Last Dose Given Next Dose Due cefEPime 1000 mg/50 mL IVPB Premix Commonly known as: MAXIPIME Infuse 50 mL (1,000 mg total) into a venous catheter daily for 11 days. cyanocobalamin 1000 MCG tablet Start taking on: November 14, 2024 Take 1 tablet (1,000 mcg total) by mouth in the morning. potassium chloride 20 MEQ CR tablet Commonly known as: KLOR-CON M 20 Start taking on: November 14, 2024 Take 1 tablet (20 mEq total) by mouth in the morning. pregabalin 25 mg capsule Commonly known as: LYRICA Take 1 capsule (25 mg total) by mouth in the morning and 1 capsule (25 mg total) before bedtime. Do all this for 3 days. * sodium chloride 0.9 % injection Infuse 10 mL into a venous catheter every 12 (twelve) hours. * sodium chloride 0.9 % injection Infuse 10 mL into a venous catheter as needed for line care. spironolactone 25 mg tablet Commonly known as: ALDACTONE Take 1 tablet (25 mg total) by mouth in the morning. tamsulosin 0.4 mg capsule Commonly known as: FLOMAX Take 1 capsule (0.4 mg total) by mouth nightly. * This list has 2 medication(s) that are the same as other medications prescribed for you. Read the directions carefully, and ask your doctor or other care provider to review them with you. CONTINUE taking these medications Instructions Last Dose Given Next Dose Due acetaminophen-codeine 300-30 mg per tablet Commonly known as: TYLENOL #3 Take 1 tablet by mouth every 4 (four) hours as needed for pain. furosemide 20 mg tablet Commonly known as: LASIX Take 2 tablets (40 mg total) by mouth daily with breakfast AND 1 tablet (20 mg total) Daily before evening meal. 40 mg in am and 20 mg in pm. insulin aspart U-100 100 unit/mL injection Commonly known as: NovoLOG Inject under the skin in the morning and at noon and in the evening. Inject before meals. As directed per sliding scale. LEVEMIR FLEXPEN SUBQ Inject 60 Units under the skin in the morning. levothyroxine 25 MCG tablet Commonly known as: SYNTHROID, LEVOTHROID Take 1 tablet (25 mcg total) by mouth nightly. LORazepam 0.5 mg tablet Commonly known as: ATIVAN Take 1 tablet (0.5 mg total) by mouth daily as needed. losartan 100 mg tablet Commonly known as: COZAAR take 1 tablet by mouth in the morning magnesium oxide 400 mg tablet Commonly known as: MAGOX Take 1 tablet (400 mg total) by mouth in the morning. pantoprazole 40 mg EC tablet Commonly known as: PROTONIX Take 1 tablet (40 mg total) by mouth in the morning. zolpidem 10 mg tablet Commonly known as: AMBIEN Take 1 tablet (10 mg total) by mouth nightly as needed for sleep. Where to Get Your Medications You can get these medications from any pharmacy Bring a paper prescription for each of these medications pregabalin 25 mg capsule Information about where to get these medications is not yet available Ask your nurse or doctor about these medications cefEPime 1000 mg/50 mL IVPB Premix cyanocobalamin 1000 MCG tablet potassium chloride 20 MEQ CR tablet sodium chloride 0.9 % injection sodium chloride 0.9 % injection spironolactone 25 mg tablet tamsulosin 0.4 mg capsule >30 minutes were spent on discharging this patient. JAM Dunlap 11/13/2024 12:25 PM [facility] Internal Medicine 7AM-7PM & 7PM-7AM: EpicChat or page through On-Call Finder. JAM Dunlap 11/13/24 1234 I, Steven Mercado MD, personally performed the face to face diagnostic evaluation on this patient. I have reviewed the CYNTHIA's History, Exam, and MDM and agree with the assessment and plan as written. I have reviewed all laboratory findings and imaging reports/films. Dr Steven Mercado MD, [facility] 11/13/2024 6:24 PM documented in this encounter [facility] 11-12-2024 Hospital Discharge instructions Cintia Bhakta RN - 11/12/2024 1:26 PM EDT Nursing Home Facility, please call and schedule the following appointments: [facility] for nj catheter at discharge follow up. Phone number: [phone] [facility] for an appointment in 3-4 weeks. Phone number: [phone] Please make sure patient has appointments to follow up with the [facility] at [phone] The following attachments cannot be sent through Care Everywhere.Lymphedema (Czech)documented in this encounter [facility] 11-12-2024 History of Present illness Narrative Images from the original note were not included. [facility] INTERNAL MEDICINE [facility] [address] [facility] [id number] Hospital Medicine Progress Note Patient: Rupa Gutierrez Date of : 1940 Room: [facility] PCP: ANGELINE BRIDGES MD Admission date: 11/08/2024 12:30 PM Encounter date: 11/12/24 Hospital Day: 5 SUBJECTIVE Interval History: Status: unchanged. No overnight events. Platelets improving. Mri negative for osteomyelitis. Will need iv atb for 14 days total. Review of Systems Constitutional: Negative for chills and fever. HENT: Negative for ear pain and sore throat. Eyes: Negative for pain and visual disturbance. Respiratory: Negative for cough and shortness of breath. Cardiovascular: Negative for chest pain and palpitations. Gastrointestinal: Negative for abdominal pain and vomiting. Genitourinary: Negative for dysuria and hematuria. Musculoskeletal: Positive for arthralgias. Negative for back pain. Skin: Negative for color change and rash. Neurological: Positive for numbness (neuropathy to ble). Negative for seizures and syncope. All other systems reviewed and are negative. OBJECTIVE BP 134/58 Pulse 97 Temp 36.7 C (98.1 F) (Oral) Resp 18 Ht 149.9 cm (4' 11 ) Wt 103.4 kg (228 lb) SpO2 98% BMI 46.05 kg/m Temp: [36.7 C (98 F)-37.1 C (98.8 F)] 36.7 C (98.1 F) Pulse: [86-102] 97 Resp: [18-22] 18 BP: (115-156)/(56-76) 134/58 SpO2: [98 %] 98 % O2 Device: None (Room air) O2 Flow Rate (L/min): [0 L/min] 0 L/min Intake/Output Summary (Last 24 hours) at 11/12/2024 1251 Last data filed at 11/12/2024 0800 Gross per 24 hour Intake 180 ml Output 1300 ml Net -1120 ml Physical Exam Vitals and nursing note reviewed. Constitutional: Appearance: She is well-developed. She is obese. HENT: Head: Normocephalic and atraumatic. Nose: Nose normal. Eyes: Pupils: Pupils are equal, round, and reactive to light. Cardiovascular: Rate and Rhythm: Normal rate and regular rhythm. Heart sounds: Normal heart sounds. No murmur heard. Pulmonary: Effort: Pulmonary effort is normal. No respiratory distress. Breath sounds: Normal breath sounds. No wheezing. Abdominal: General: Bowel sounds are normal. Palpations: Abdomen is soft. Tenderness: There is no abdominal tenderness. Musculoskeletal: General: Normal range of motion. Cervical back: Neck supple. Lymphadenopathy: Cervical: No cervical adenopathy. Skin: General: Skin is warm and dry. Findings: No rash. Comments: Wounds to BLE Neurological: Mental Status: She is alert and oriented to person, place, and time. Cranial Nerves: No cranial nerve deficit. Motor: Weakness present. Medications Scheduled: [COMPLETED] cefepime (MAXIPIME) IV, 2,000 mg, intravenous, Once FOLLOWED BY cefepime (MAXIPIME) IV, 1,000 mg, intravenous, Q24H cyanocobalamin, 1,000 mcg, oral, Daily furosemide, 40 mg, oral, Q12H insulin glargine, 60 Units, subcutaneous, Daily insulin lispro, 2-10 Units, subcutaneous, With meals and nightly levothyroxine, 25 mcg, oral, Daily pantoprazole, 40 mg, oral, QAM AC pregabalin, 25 mg, oral, BID sodium chloride, 3 mL, intravenous, Q12H MARLENE Infusions: dextrose 5 % in water, 100 mL/hr sodium chloride 0.9 %, 20 mL/hr As Needed: acetaminophen dextrose dextrose 5 % in water dextrose 50 % in water (D50W) gadoteridoL glucagon (human recombinant) HYDROcodone-acetaminophen LORazepam magnesium sulfate magnesium sulfate ondansetron sodium chloride sodium chloride sodium chloride sodium chloride 0.9 % zolpidem Allergies: Lisinopril, Diatrizoate meglumine, Iodine, Levofloxacin in d5w, and Propoxyphene Code Status: Full Code Labs Recent Results (from the past 24 hours) Bedside Glucose *Place/Obtain serum glucose if >500 per glucometer. Collection Time: 11/11/24 4:53 PM Result Value Ref Range Bedside Glucose (POC) 214 (H) 65 - 99 mg/dL Bedside Glucose *Place/Obtain serum glucose if >500 per glucometer. Collection Time: 11/11/24 8:51 PM Result Value Ref Range Bedside Glucose (POC) 248 (H) 65 - 99 mg/dL Comprehensive metabolic panel Collection Time: 11/12/24 5:12 AM Result Value Ref Range SODIUM 134 134 - 146 mmol/L POTASSIUM 3.5 3.5 - 5.0 mmol/L CHLORIDE 109 98 - 109 mmol/L CARBON DIOXIDE 25 22 - 32 mmol/L ANION GAP 0 (L) 5 - 15 mmol/L BLOOD UREA NITROGEN 37 (H) 5 - 27 mg/dL CREATININE 1.39 (H) 0.40 - 1.00 mg/dL GLUCOSE 73 65 - 99 mg/dL CALCIUM 7.9 (L) 8.5 - 10.5 mg/dL TOTAL PROTEIN 6.3 6.0 - 8.0 g/dL ALBUMIN 2.6 (L) 3.2 - 5.3 g/dL ALKALINE PHOSPHATASE 63 39 - 130 U/L AST 12 <=41 U/L ALT 14 <=31 U/L BILIRUBIN,TOTAL 0.6 0.3 - 1.2 mg/dL EGFR Non-Race Dependent 38 (L) >=60 ml/min/1.73sq.m Magnesium Collection Time: 11/12/24 5:12 AM Result Value Ref Range MAGNESIUM 2.2 1.8 - 2.6 mg/dL CBC auto differential Collection Time: 11/12/24 5:12 AM Result Value Ref Range WBC 11.1 (H) 4 - 11 x10E9/L RBC Count 2.79 (L) 3.8 - 5.2 X10E12/L Hemoglobin 8.6 (L) 11.7 - 15.5 g/dL Hematocrit 25.1 (L) 35 - 47 % MCV 90 80 - 100 fL MCH 30.7 27 - 34 pg MCHC 34.1 32 - 36 g/dL RDW 13.4 11.5 - 15 % Platelet Count 37 (L) 150 - 450 X10E9/L MPV 9.4 7 - 12 fL Neutrophils Relative 60.8 % Lymphocytes Relative 21.9 % Monocytes Relative 13.9 % Eosinophils Relative 2.6 % Basophils Relative 0.8 % Neutrophils Absolute (A) 6.7 (H) 1.5 - 6.6 10*3/uL Lymphocytes Absolute 2.4 1.0 - 3.5 10*3/uL Monocytes Absolute 1.5 (H) 0.0 - 0.9 10*3/uL Eosinophils Absolute 0.3 0.0 - 0.4 10*3/uL Basophils Absolute 0.1 0.0 - 0.2 10*3/uL Differential Type AUTOMATED DIFFERENTIAL Phosphorus Collection Time: 11/12/24 5:12 AM Result Value Ref Range PHOSPHORUS 2.8 2.4 - 4.9 mg/dL Extra Tubes Collection Time: 11/12/24 5:15 AM Narrative The following orders were created for panel order Extra Tubes. Procedure Abnormality Status --------- ------ Light Blue Top[[id number]] Final result Please view results for these tests on the individual orders. Light Blue Top Collection Time: 11/12/24 5:15 AM Result Value Ref Range Extra Tube Auto Resulted Radiology MR foot right without contrast Result Date: 11/11/2024 History: Pain.Swelling. Edema MRI Right Foot Comparison: Technique: Multiplanar multisequence imaging of the foot was obtained without contrast. Findings/impression: Study is significantly degraded by motion artifact. Patient had involuntary motion and could not tolerate the examination. The examination was prematurely terminated. Based on the sequences obtained no obvious evidence of osteomyelitis is seen involving the metatarsals or digits. No joint effusion. Nonspecific soft tissue edema is noted dorsally but also along the plantar aspect. Please correlate with the clinical picture.. If in the future the patient tolerated imaging we would be happy reimage the patient. No obvious evidence of abscess. Hampered study Finalized by Dinorah Kaur MD on 11/11/2024 2:06 PM HOSPITAL PROBLEM LIST Principal Problem: Pressure injury of right heel, unstageable ([facility] Active Problems: Lymphedema Diabetes mellitus type I ([facility]) Hyperkalemia Hypothyroid PVD (peripheral vascular disease) Hyponatremia Venous stasis ulcer of right lower leg with edema of right lower leg ([facility]) Venous stasis ulcer of left lower leg with edema of left lower leg ([facility]) ASSESSMENT & PLAN Cellulitis lower extremity Lymphedema Vanco discontinued Wound care daily CRP 17.6> 14.5>>10.9 Blood culture in process-NGTD Lactate 0.9 MRI bilateral lower leg and feet ordered-negative for MRI Lyrica started for neuropathic pain Wound culture growing pseudomonas Changed Rocephin to cefepime Podiatry consulted JANNIE on CKD Monitor kidney function daily Avoid nephrotoxic agents Nephrology following Daily weight and I/O Improving Lasix 40 bid can be discharged with Nj with outpatient urology follow-up. Will need basic metabolic panel and magnesium 1 week after discharge Follow up nephrology 3-4 weeks after discharge Thrombocytopenia Platelets 37 today Hem/onc consulted Hgb stable D/c heparin PF4 antibody negative Peripheral smear pending Essential Hypertension Normotensive Hold losartan Dm type 1 Continue home Lantus Monitor blood glucose a.c. and HS cover sliding scale insulin Hyperkalemia resolved Nephrology following Continue loop diuretic today per nephrology Low potassium diet Nj in place per nephrology Hypothyroidism Continue home Synthroid DC planning: TBD likely 1-2 days JAM Dunlap 11/12/2024 12:51 PM [facility] Internal Medicine 7AM-7PM & 7PM-7AM: EpicChat or page through On-Call Finder. JAM Dunlap 11/12/24 1257 I, Steven Mercado MD, personally performed the face to face diagnostic evaluation on this patient. I have reviewed the CYNTHIA's History, Exam, and MDM and agree with the assessment and plan as written. I have reviewed all laboratory findings and imaging reports/films. Dr Steven Mercado MD, MRCP 11/12/2024 7:23 PM Images from the original note were not included. [facility] INTERNAL MEDICINE [facility] [address] [facility] [id number] Hospital Medicine Progress Note Patient: Rupa Gutierrez Date of : 1940 Room: [facility]/ PCP: ANGELINE BRIDGES MD Admission date: 11/08/2024 12:30 PM Encounter date: 11/11/24 Hospital Day: 4 SUBJECTIVE Interval History: Status: unchanged. No overnight events. Platelets improved slightly, hem/onc consulted, pending eval. Will need mri foot today as it was not completed yesterday. Review of Systems Constitutional: Negative for chills and fever. HENT: Negative for ear pain and sore throat. Eyes: Negative for pain and visual disturbance. Respiratory: Negative for cough and shortness of breath. Cardiovascular: Negative for chest pain and palpitations. Gastrointestinal: Negative for abdominal pain and vomiting. Genitourinary: Negative for dysuria and hematuria. Musculoskeletal: Positive for arthralgias. Negative for back pain. Skin: Negative for color change and rash. Neurological: Positive for numbness (neuropathy to ble). Negative for seizures and syncope. All other systems reviewed and are negative. OBJECTIVE BP 120/63 Pulse 101 Temp 36.7 C (98 F) (Oral) Resp 20 Ht 149.9 cm (4' 11 ) Wt 102.9 kg (226 lb 12.8 oz) SpO2 97% BMI 45.81 kg/m Temp: [36.4 C (97.6 F)-36.8 C (98.3 F)] 36.7 C (98 F) Pulse: [98-103] 101 Resp: [18-20] 20 BP: (120-156)/(49-63) 120/63 SpO2: [96 %-98 %] 97 % O2 Device: None (Room air) O2 Flow Rate (L/min): [0 L/min] 0 L/min Intake/Output Summary (Last 24 hours) at 11/11/2024 1356 Last data filed at 11/11/2024 1200 Gross per 24 hour Intake 1260 ml Output 2700 ml Net -1440 ml Physical Exam Vitals and nursing note reviewed. Constitutional: Appearance: She is well-developed. She is obese. HENT: Head: Normocephalic and atraumatic. Nose: Nose normal. Eyes: Pupils: Pupils are equal, round, and reactive to light. Cardiovascular: Rate and Rhythm: Normal rate and regular rhythm. Heart sounds: Normal heart sounds. No murmur heard. Pulmonary: Effort: Pulmonary effort is normal. No respiratory distress. Breath sounds: Normal breath sounds. No wheezing. Abdominal: General: Bowel sounds are normal. Palpations: Abdomen is soft. Tenderness: There is no abdominal tenderness. Musculoskeletal: General: Normal range of motion. Cervical back: Neck supple. Lymphadenopathy: Cervical: No cervical adenopathy. Skin: General: Skin is warm and dry. Findings: No rash. Comments: Wounds to BLE Neurological: Mental Status: She is alert and oriented to person, place, and time. Cranial Nerves: No cranial nerve deficit. Motor: Weakness present. Medications Scheduled: [COMPLETED] cefepime (MAXIPIME) IV, 2,000 mg, intravenous, Once FOLLOWED BY cefepime (MAXIPIME) IV, 1,000 mg, intravenous, Q24H cyanocobalamin, 1,000 mcg, oral, Daily furosemide, 40 mg, oral, Daily insulin glargine, 60 Units, subcutaneous, Daily insulin lispro, 2-10 Units, subcutaneous, With meals and nightly levothyroxine, 25 mcg, oral, Daily pantoprazole, 40 mg, oral, QAM AC pregabalin, 25 mg, oral, BID sodium chloride, 3 mL, intravenous, Q12H MARLENE Infusions: dextrose 5 % in water, 100 mL/hr sodium chloride 0.9 %, 20 mL/hr As Needed: acetaminophen dextrose dextrose 5 % in water dextrose 50 % in water (D50W) gadoteridoL glucagon (human recombinant) HYDROcodone-acetaminophen LORazepam magnesium sulfate magnesium sulfate ondansetron sodium chloride sodium chloride sodium chloride sodium chloride 0.9 % zolpidem Allergies: Lisinopril, Diatrizoate meglumine, Iodine, Levofloxacin in d5w, and Propoxyphene Code Status: Full Code Labs Recent Results (from the past 24 hours) Bedside Glucose *Place/Obtain serum glucose if >500 per glucometer. Collection Time: 11/10/24 4:01 PM Result Value Ref Range Bedside Glucose (POC) 204 (H) 65 - 99 mg/dL Bedside Glucose *Place/Obtain serum glucose if >500 per glucometer. Collection Time: 11/10/24 9:09 PM Result Value Ref Range Bedside Glucose (POC) 312 (H) 65 - 99 mg/dL Comprehensive metabolic panel Collection Time: 11/11/24 5:26 AM Result Value Ref Range SODIUM 137 134 - 146 mmol/L POTASSIUM 3.9 3.5 - 5.0 mmol/L CHLORIDE 101 98 - 109 mmol/L CARBON DIOXIDE 24 22 - 32 mmol/L ANION GAP 12 5 - 15 mmol/L BLOOD UREA NITROGEN 47 (H) 5 - 27 mg/dL CREATININE 1.64 (H) 0.40 - 1.00 mg/dL GLUCOSE 207 (H) 65 - 99 mg/dL CALCIUM 8.5 8.5 - 10.5 mg/dL TOTAL PROTEIN 5.9 (L) 6.0 - 8.0 g/dL ALBUMIN 2.5 (L) 3.2 - 5.3 g/dL ALKALINE PHOSPHATASE 71 39 - 130 U/L AST 17 <=41 U/L ALT 14 <=31 U/L BILIRUBIN,TOTAL 0.5 0.3 - 1.2 mg/dL EGFR Non-Race Dependent 31 (L) >=60 ml/min/1.73sq.m Magnesium Collection Time: 11/11/24 5:26 AM Result Value Ref Range MAGNESIUM 2.4 1.8 - 2.6 mg/dL CBC auto differential Collection Time: 11/11/24 5:26 AM Result Value Ref Range WBC 9.4 4 - 11 x10E9/L RBC Count 2.86 (L) 3.8 - 5.2 X10E12/L Hemoglobin 8.7 (L) 11.7 - 15.5 g/dL Hematocrit 25.8 (L) 35 - 47 % MCV 90 80 - 100 fL MCH 30.6 27 - 34 pg MCHC 34.0 32 - 36 g/dL RDW 13.5 11.5 - 15 % Platelet Count 28 (LL) 150 - 450 X10E9/L MPV 9.0 7 - 12 fL Neutrophils Relative 58.7 % Lymphocytes Relative 21.4 % Monocytes Relative 15.7 % Eosinophils Relative 3.4 % Basophils Relative 0.8 % Neutrophils Absolute (A) 5.5 1.5 - 6.6 10*3/uL Lymphocytes Absolute 2.0 1.0 - 3.5 10*3/uL Monocytes Absolute 1.5 (H) 0.0 - 0.9 10*3/uL Eosinophils Absolute 0.3 0.0 - 0.4 10*3/uL Basophils Absolute 0.1 0.0 - 0.2 10*3/uL Differential Type AUTOMATED DIFFERENTIAL C-reactive protein Collection Time: 11/11/24 5:26 AM Result Value Ref Range C REACTIVE PROTEIN 10.9 (H) <=0.7 mg/dL Procalcitonin Collection Time: 11/11/24 5:26 AM Result Value Ref Range PROCALCITONIN 0.20 (H) <0.05 ng/mL Narrative <0.50 ng/mL - Low risk of severe sepsis and/or septic shock. <2.00 ng/mL - Recommend retesting within 6-24 hours. >2.00 ng/mL - High risk of sepsis and/or septic shock. Phosphorus Collection Time: 11/11/24 5:26 AM Result Value Ref Range PHOSPHORUS 2.6 2.4 - 4.9 mg/dL Fibrinogen Collection Time: 11/11/24 5:26 AM Result Value Ref Range FIBRINOGEN 417 190 - 480 mg/dL Bedside Glucose *Place/Obtain serum glucose if >500 per glucometer. Collection Time: 11/11/24 12:28 PM Result Value Ref Range Bedside Glucose (POC) 240 (H) 65 - 99 mg/dL Radiology No results found. HOSPITAL PROBLEM LIST Principal Problem: Pressure injury of right heel, unstageable [place] Active Problems: Lymphedema Diabetes mellitus type I ([facility] Hyperkalemia Hypothyroid PVD (peripheral vascular disease) Hyponatremia Venous stasis ulcer of right lower leg with edema of right lower leg ([facility] Venous stasis ulcer of left lower leg with edema of left lower leg ([facility] ASSESSMENT & PLAN Cellulitis lower extremity Lymphedema Vanco discontinued Wound care daily WBC improved today 9.4 CRP 17.6> 14.5>>10.9 Wound culture- positive for moderate gram negative coccobacilli Blood culture in process-NGTD Lactate 0.9 MRI bilateral lower leg and feet ordered- pt was unable to tolerate today per RN-attempt again today for foot MRI Lyrica started for neuropathic pain Wound culture growing pseudomonas Changed Rocephin to cefepime Podiatry consulted JANNIE on CKD Monitor kidney function daily Avoid nephrotoxic agents Nephrology following Daily weight and I/O Improving Thrombocytopenia Platelets 28 today Hem/onc consulted Hgb stable D/c heparin PF4 antibody negative Peripheral smear pending Essential Hypertension Normotensive Hold losartan Dm type 1 Continue home Lantus Monitor blood glucose a.c. and HS cover sliding scale insulin Hyperkalemia resolved Nephrology following Continue loop diuretic today per nephrology Low potassium diet Nj in place per nephrology Hypothyroidism Continue home Synthroid DC planning: tbd pending hem/onc consult. JAM Dunlap 11/11/2024 1:56 PM [facility] Internal Medicine 7AM-7PM & 7PM-7AM: EpicChat or page through On-Call Finder. JAM Dunlap 11/11/24 1401 I, Steven Mercado MD, personally performed the face to face diagnostic evaluation on this patient. I have reviewed the CYNTHIA's History, Exam, and MDM and agree with the assessment and plan as written. I have reviewed all laboratory findings and imaging reports/films. Dr Steven Mercado MD, MRCP 11/11/2024 9:15 PM Cefepime dose adjusted to 1g IVPB q24hr extended infusion over 4 hours following 2g loading dose per renal dosing protocol w/ est CrCl 24 ml/min w/ Scr 1.86 Vanco level 22.2 about 36 hours after 2,000mg dose x1. Recommend to check level again in 24 hours. Calculations WT= 103.1kg VD= 72.17L Crcl= 16.46ml/min (IBW) CL= 0.988L/HR Ke= 0.0137hrs- T 1/2= 50.5hrs Paulino Rich PharmD [facility] NUTRITION ADULT INITIAL EVALUATION NUTRITION ASSESSMENT Reason To Be Seen: Received nutritional trigger for pressure injury on right heel Hospital Occurrences: Pt admitted with lymphedema and pressure injuries Admit Diagnosis: Patient Active Problem List Diagnosis Abdominal pain Calculus of ureter BMI 45.0-49.9, adult [place] Morbid obesity [place] Mild tricuspid regurgitation Pulmonary hypertension ([facility] Essential hypertension Preop cardiovascular exam Lymphedema Diabetes mellitus type I ([facility] Cellulitis of lower extremity, unspecified laterality Hyperkalemia Hypothyroid PVD (peripheral vascular disease) Hyponatremia Pressure injury of right heel, unstageable ([facility] Venous stasis ulcer of right lower leg with edema of right lower leg ([facility] Venous stasis ulcer of left lower leg with edema of left lower leg ([facility] Past Medical History: Past Medical History: Diagnosis Date Anxiety C. difficile diarrhea CHF (congestive heart failure) ([facility] Dental disease Diabetes mellitus type I ([facility] Hypertension Hypothyroid Insomnia Kidney stone stage 3 Neuropathy Obesity Osteoarthritis Paroxysmal supraventricular tachycardia Peripheral neuropathy Plantar fasciitis Pulmonary HTN ([facility] PVD (peripheral vascular disease) Visual impairment White coat syndrome with diagnosis of hypertension Past Surgical History: Past Surgical History: Procedure Laterality Date APPENDECTOMY 1951 SECTION x2 DILATION AND CURETTAGE OF UTERUS DISCECTOMY EYE SURGERY NECK SURGERY TONSILLECTOMY Diet History: good appetite Allergies: Allergies Allergen Reactions Lisinopril Cough Diatrizoate Meglumine Rash Iodine Rash Levofloxacin In D5w Rash Propoxyphene Rash Nutrition Focused Physical Findings-- No evidence of muscle wasting/malnutrition. As per nutrition flow sheet- Skin: Skin Color: [place] (11/10/24 0726) Skin Temp: Warm, Dry (11/10/24 0726) Skin Integrity: Redness, Weeping (ulcer wounds located to lower extremities bilaterally, seeping noted with redness) (11/08/24 1436) Wound: Wound 10/26/24 4 Other (comment) Calf Right;Medial-Site Assessment: Yellow, Moist, Painful, [place] (11/10/24 1100) Wound 10/24/24 2 Other (comment) Calf Left;Posterior-Site Assessment: Red, Moist, Painful (11/10/24 1000) Wound 10/26/24 3 Diabetic Ulcer Heel Right;Posterior-Site Assessment: Eschar Stable (11/10/24 1000) Gastrointestinal: Edema: RLE Edema: +2 (11/10/24 1100) LLE Edema: +2 (11/10/24 1100) Labs: Results from last 3 days Lab Units 11/10/24 0528 11/09/24 1241 11/09/24 0612 11/08/24 1622 11/08/24 1320 SODIUM mmol/L 138 -- 135 -- 132* POTASSIUM mmol/L 4.4 5.2* 5.3* < > 5.5* CHLORIDE mmol/L 104 -- 106 -- 101 CO2 mmol/L 22 -- 22 -- 22 BUN mg/dL 65* -- 76* -- 81* CREATININE mg/dL 1.86* -- 2.35* -- 2.67* CALCIUM mg/dL 8.8 -- 8.5 -- 8.7 ALBUMIN g/dL 2.9* -- 3.3 -- 3.3 ALK PHOS U/L 78 -- 85 -- 84 ALT U/L 15 -- 18 -- 14 AST U/L 19 -- 22 -- 26 < > = values in this interval not displayed. Results from last 7 days Lab Units 11/10/24 0800 11/10/24 0528 11/09/24 2135 11/09/24 1643 11/09/24 1127 11/09/24 0611/08/24 2125 BEDSIDE GLUCOSE mg/dL 100* -- 211* 185* 144* -- 156* GLUCOSE mg/dL -- 99 -- -- -- 82 -- Results from last 3 days Lab Units 11/10/24 0528 11/09/24 0612 11/08/24 1320 MAGNESIUM mg/dL 2.7* 2.9* 2.9* Results from last 3 days Lab Units 11/10/24 0528 PHOSPHORUS mg/dL 3.1 Results from last 3 days Lab Units 11/10/24 0528 11/09/24 1241 11/09/24 0633 WBC x10E9/L 11.1* 10.5 11.2* HEMOGLOBIN g/dL 9.7* 9.9* 10.0* HEMATOCRIT % 28.9* 29.4* 30.0* PLATELETS X10E9/L 19* 25* 27* MCV fL 90 90 90 Lab Results Component Value Date [id number] 213 11/09/2024 Lab Results Component Value Date FOLATE 12.9 11/09/2024 Lab Results Component Value Date IRON 29 (L) 11/09/2024 TIBC 258 11/09/2024 FERRITIN 256 11/09/2024 Lab Results Component Value Date IRONSAT 11 (L) 11/09/2024 Lab Results Component Value Date HGBA1C 10.1 (H) 04/26/2021 Lab Results Component Value Date CHOL 161 09/10/2022 Lab Results Component Value Date HDL 43 09/10/2022 No results found for: LIPIDPROF No results found for: VIDHYDROX Medications/ Parenteral: Medications Prior to Admission Medication Sig Dispense Refill Last Dose/Taking furosemide (LASIX) 20 mg tablet Take 2 tablets (40 mg total) by mouth daily with breakfast AND 1 tablet (20 mg total) Daily before evening meal. 40 mg in am and 20 mg in pm. 90 tablet 6 11/08/2024 insulin aspart U-100 (NovoLOG) 100 unit/mL injection Inject under the skin in the morning and at noon and in the evening. Inject before meals. As directed per sliding scale. 11/08/2024 insulin detemir (LEVEMIR FLEXPEN SUBQ) Inject 60 Units under the skin in the morning. 11/08/2024 levothyroxine (SYNTHROID, LEVOTHROID) 25 MCG tablet Take 1 tablet (25 mcg total) by mouth nightly. 11/08/2024 losartan (COZAAR) 100 mg tablet take 1 tablet by mouth in the morning 90 tablet 3 11/08/2024 magnesium oxide (MAGOX) 400 mg tablet Take 1 tablet (400 mg total) by mouth in the morning. 90 tablet 3 11/08/2024 pantoprazole (PROTONIX) 40 mg EC tablet Take 1 tablet (40 mg total) by mouth in the morning. 11/08/2024 zolpidem (AMBIEN) 10 mg tablet Take 1 tablet (10 mg total) by mouth nightly as needed for sleep. 11/07/2024 acetaminophen-codeine (TYLENOL #3) 300-30 mg per tablet Take 1 tablet by mouth every 4 (four) hours as needed for pain. LORazepam (ATIVAN) 0.5 mg tablet Take 1 tablet (0.5 mg total) by mouth daily as needed. Current Facility-Administered Medications Medication Dose Route Frequency Provider Last Rate Last Admin acetaminophen (TYLENOL) tablet 650 mg 650 mg oral Q6H PRN JAM Suazo 650 mg at 11/08/24 1812 cefTRIAXone (ROCEPHIN) IVPB 2000 mg/50 mL in iso-osmotic dextrose (40 mg/mL premix) 2,000 mg intravenous Q24H JAM Suazo Stopped at 11/09/24 1742 dextrose (GLUTOSE) 40 % gel 15 g 15 g oral PRN JAM Suazo dextrose 5 % (D5W) infusion 100 mL/hr intravenous Continuous PRN JAM Suazo dextrose 50 % in water (D50W) 50% solution 25 mL 25 mL intravenous PRN JAM Suazo furosemide (LASIX) tablet 40 mg 40 mg oral Daily Kimberly Perez MD 40 mg at 11/10/24 1229 gadoteridoL (PROHANCE) injection 10 mmol 20 mL 0.1 mmol/kg intravenous Once in imaging JAM Dunlap glucagon HCL injection 1 mg 1 mg intramuscular PRN JAM Suazo HYDROcodone-acetaminophen (NORCO) 5-325 mg per tablet 1 tablet 1 tablet oral Q6H PRN JAM Love 1 tablet at 11/10/24 0459 insulin glargine (LANTUS, SEMGLEE) injection pen 60 Units 60 Units subcutaneous Daily JAM Suazo insulin lispro (HumaLOG) injection 2-10 Units 2-10 Units subcutaneous With meals and nightly JAM Suazo 4 Units at 11/10/24 1229 levothyroxine (SYNTHROID, LEVOTHROID) tablet 25 mcg 25 mcg oral Daily Zenobia Funez MD 25 mcg at 11/10/24 0459 LORazepam (ATIVAN) tablet 0.5 mg 0.5 mg oral Daily PRN Miguel Douglas, COMPRESSOR OPERATOR ADJUSTER-OPTICAL COATING TECHNICIAN 0.5 mg at 11/08/242053 magnesium sulfate IVPB 2000 mg/50 mL in iso-osmotic water (40 mg/mL premix) 2,000 mg intravenous PRN Miguel Combszer, COMPRESSOR OPERATOR ADJUSTER-OPTICAL COATING TECHNICIAN magnesium sulfate IVPB 4000 mg/100 mL in iso-osmotic water (40 mg/mL premix) 4,000 mg intravenous PRN Miguel Combszer, COMPRESSOR OPERATOR ADJUSTER-OPTICAL COATING TECHNICIAN ondansetron (PF) (ZOFRAN) injection 4 mg 4 mg intravenous Q6H PRN Miguel Douglas, COMPRESSOR OPERATOR ADJUSTER-OPTICAL COATING TECHNICIAN pantoprazole (PROTONIX) EC tablet 40 mg 40 mg oral QAM AC Miguel Douglas, COMPRESSOR OPERATOR ADJUSTER-OPTICAL COATING TECHNICIAN 40 mg at 11/10/24 0459 pregabalin (LYRICA) capsule 25 mg 25 mg oral BID Margot Leiva APRN-OPTICAL COATING TECHNICIAN 25 mg at 11/10/24 1229 sodium chloride 0.9 % flush 10 mL 10 mL intravenous Once in imaging Margot Leiva APRN-OPTICAL COATING TECHNICIAN sodium chloride 0.9 % flush 3 mL 3 mL intravenous PRN Miguel Douglas, COMPRESSOR OPERATOR ADJUSTER-OPTICAL COATING TECHNICIAN sodium chloride 0.9 % flush 3 mL 3 mL intravenous Q12H MARLENE Miguel Douglas, COMPRESSOR OPERATOR ADJUSTER-OPTICAL COATING TECHNICIAN 3 mL at 11/10/24 1229 sodium chloride 0.9 % flush bag 25 mL intravenous PRN Miguel Douglas, COMPRESSOR OPERATOR ADJUSTER-OPTICAL COATING TECHNICIAN sodium chloride 0.9 % infusion 20 mL/hr intravenous Continuous PRN Miguel Douglas, COMPRESSOR OPERATOR ADJUSTER-OPTICAL COATING TECHNICIAN vancomycin (VANCOCIN) IVPB Dosed by Levels intravenous Dosed by Levels Miguel Douglas, COMPRESSOR OPERATOR ADJUSTER-OPTICAL COATING TECHNICIAN zolpidem (AMBIEN) tablet 10 mg 10 mg oral Nightly PRN Miguel Combszer, COMPRESSOR OPERATOR ADJUSTER-OPTICAL COATING TECHNICIAN 10 mg at 11/09/242106 Nutrition Findings/Summary: noted stable wt Anthropometrics: Ht Readings from Last 1 Encounters: 11/08/24 149.9 cm (4' 11 ) Wt Readings from Last 10 Encounters: 11/10/24 103.1 kg (227 lb 3.2 oz) 10/26/24 96.2 kg (212 lb) 09/07/24 112 kg (247 lb) 09/02/24 112 kg (247 lb) 08/30/24 112 kg (247 lb) 02/14/24 104.3 kg (230 lb) 11/05/22 104.3 kg (230 lb) 04/17/22 104.3 kg (230 lb) 04/09/22 104.3 kg (230 lb) 01/29/22 105.7 kg (233 lb 0.4 oz) [place] Body Weight: 44.1 kg Percent [place] Body Weight: 234 % Body Mass Index: Body mass index is 45.89 kg/m . BMI Category: Obese class 3 (> or = 40.00) Diet/ Nutrition Order Review: Dietary Orders (From admission, onward) Start Ordered 11/10/24 1132 Adult nutrition supplements Continuous Question Answer Comment Diet Type or Consistency: Regular Texture Select Supplement: Wound Healing Supplement Frequency: BID 11/10/24 1131 11/08/24 1807 Adult diet Regular Texture; Consistent Carb 210 grams (1800 kcal) Diet effective now Question Answer Comment Diet Type: Regular Texture Carbohydrate Modifiers: Consistent Carb 210 grams (1800 kcal) 11/08/24 1807 Diet Intakes: Percent Meals Eaten (%): 75 (11/10/24 1130) 75 % [] 75-100% [] 50-75% [] 25-50% [] <25% [] NPO [] Unable to assess Intake/ Output Last 24 hrs: Intake/Output Summary (Last 24 hours) at 11/10/2024 1311 Last data filed at 11/10/2024 1130 Gross per 24 hour Intake 600 ml Output 1050 ml Net -450 ml Oral Supplemental Intake/ Acceptance: just started [] 75-100% [] 50-75% [] 25-50% [] <25% [] NPO [] Unable to assess [place] Body Weight (44 kg) used to estimate nutrition needs Estimated Energy Needs: ~6302-6121 kcals daily. Method and weight used: 30-35 kcal/kg IBW Estimated Protein Needs: ~66-110 grams daily. Method and weight used: 1.5-2.5 gm/kg IBW Estimated Fluid Needs: ~7916-2117 ml daily. Method Used: 1 ml/kcal General Needs: for wound healing Malnutrition Status: Malnutrition Present: No NUTRITION DIAGNOSIS: Intake Diagnosis: Increased nutrient needs Protein/HMB (NI 5.1) related to open wounds on heel and other areas as evidenced by delayed wound healng. NUTRITION INTERVENTIONS: Supplements (medical food, vitamin or mineral): will send wound supplement BID Coordination of nutrition care: spoke with RN and Clinical care huddle GOALS: Patient to meet calorie and protein needs RECOMMENDATIONS: Started Vinicius BID to provide for each packet/drink HMB, 90 calories, 7g L-Arginine and 7g L-Glutamine amino acids and 2.5g protein (collagen). NUTRITION MONITORING AND EVALUATION: Will monitor PO intakes, supplement acceptance, Weights, Nutrition Related Labs, POC & Follow. [x] Progressing toward goal [] Not progressing [] Progress toward goal declining [] Goal achieved Melanie Martinez RD.,LD. Clinical Dietitian [facility] [phone] 11/10/24 Images from the original note were not included. [facility] [address] [facility] [id number] Hospital Medicine Progress Note Patient: Rupa Gutierrez Date of : 1940 Room: PCP: ANGELINE BRIDGES MD Admission date: 11/08/2024 12:30 PM Encounter date: 11/10/24 Hospital Day: 3 SUBJECTIVE Interval History: Status: unchanged. No overnight events. Platelets worsened, hem/onc consulted. Review of Systems Constitutional: Negative for chills and fever. HENT: Negative for ear pain and sore throat. Eyes: Negative for pain and visual disturbance. Respiratory: Negative for cough and shortness of breath. Cardiovascular: Negative for chest pain and palpitations. Gastrointestinal: Negative for abdominal pain and vomiting. Genitourinary: Negative for dysuria and hematuria. Musculoskeletal: Positive for arthralgias. Negative for back pain. Skin: Negative for color change and rash. Neurological: Positive for numbness (neuropathy to ble). Negative for seizures and syncope. All other systems reviewed and are negative. OBJECTIVE BP 132/73 Pulse 105 Temp 36.8 C (98.3 F) (Temporal) Resp 18 Ht 149.9 cm (4' 11 ) Wt 103.1 kg (227 lb 3.2 oz) SpO2 96% BMI 45.89 kg/m Temp: [36.3 C (97.3 F)-36.8 C (98.3 F)] 36.8 C (98.3 F) Pulse: [95-105] 105 Resp: [18-20] 18 BP: (132-163)/(54-86) 132/73 SpO2: [96 %-99 %] 96 % O2 Device: None (Room air) Intake/Output Summary (Last 24 hours) at 11/10/2024 1318 Last data filed at 11/10/2024 1130 Gross per 24 hour Intake 600 ml Output 1050 ml Net -450 ml Physical Exam Vitals and nursing note reviewed. Constitutional: Appearance: She is well-developed. She is obese. HENT: Head: Normocephalic and atraumatic. Nose: Nose normal. Eyes: Pupils: Pupils are equal, round, and reactive to light. Cardiovascular: Rate and Rhythm: Normal rate and regular rhythm. Heart sounds: Normal heart sounds. No murmur heard. Pulmonary: Effort: Pulmonary effort is normal. No respiratory distress. Breath sounds: Normal breath sounds. No wheezing. Abdominal: General: Bowel sounds are normal. Palpations: Abdomen is soft. Tenderness: There is no abdominal tenderness. Musculoskeletal: General: Normal range of motion. Cervical back: Neck supple. Lymphadenopathy: Cervical: No cervical adenopathy. Skin: General: Skin is warm and dry. Findings: No rash. Comments: Wounds to BLE Neurological: Mental Status: She is alert and oriented to person, place, and time. Cranial Nerves: No cranial nerve deficit. Motor: Weakness present. Medications Scheduled: cefTRIAXone (ROCEPHIN) IV, 2,000 mg, intravenous, Q24H furosemide, 40 mg, oral, Daily insulin glargine, 60 Units, subcutaneous, Daily insulin lispro, 2-10 Units, subcutaneous, With meals and nightly levothyroxine, 25 mcg, oral, Daily pantoprazole, 40 mg, oral, QAM AC pregabalin, 25 mg, oral, BID sodium chloride, 3 mL, intravenous, Q12H MARLENE vancomycin, , intravenous, Dosed by Levels Infusions: dextrose 5 % in water, 100 mL/hr sodium chloride 0.9 %, 20 mL/hr As Needed: acetaminophen dextrose dextrose 5 % in water dextrose 50 % in water (D50W) gadoteridoL glucagon (human recombinant) HYDROcodone-acetaminophen LORazepam magnesium sulfate magnesium sulfate ondansetron sodium chloride sodium chloride sodium chloride sodium chloride 0.9 % zolpidem Allergies: Lisinopril, Diatrizoate meglumine, Iodine, Levofloxacin in d5w, and Propoxyphene Code Status: Full Code Labs Recent Results (from the past 24 hours) Heparin PF4 AB Collection Time: 11/09/24 1:57 PM Result Value Ref Range HEPARIN PF4 ANTIBODY (HIT) 0.137 <0.400 OD Bedside Glucose *Place/Obtain serum glucose if >500 per glucometer. Collection Time: 11/09/24 4:43 PM Result Value Ref Range Bedside Glucose (POC) 185 (H) 65 - 99 mg/dL Bedside Glucose *Place/Obtain serum glucose if >500 per glucometer. Collection Time: 11/09/24 9:35 PM Result Value Ref Range Bedside Glucose (POC) 211 (H) 65 - 99 mg/dL Comprehensive metabolic panel Collection Time: 11/10/24 5:28 AM Result Value Ref Range SODIUM 138 134 - 146 mmol/L POTASSIUM 4.4 3.5 - 5.0 mmol/L CHLORIDE 104 98 - 109 mmol/L CARBON DIOXIDE 22 22 - 32 mmol/L ANION GAP 12 5 - 15 mmol/L BLOOD UREA NITROGEN 65 (H) 5 - 27 mg/dL CREATININE 1.86 (H) 0.40 - 1.00 mg/dL GLUCOSE 99 65 - 99 mg/dL CALCIUM 8.8 8.5 - 10.5 mg/dL TOTAL PROTEIN 7.2 6.0 - 8.0 g/dL ALBUMIN 2.9 (L) 3.2 - 5.3 g/dL ALKALINE PHOSPHATASE 78 39 - 130 U/L AST 19 <=41 U/L ALT 15 <=31 U/L BILIRUBIN,TOTAL 0.8 0.3 - 1.2 mg/dL EGFR Non-Race Dependent 27 (L) >=60 ml/min/1.73sq.m Magnesium Collection Time: 11/10/24 5:28 AM Result Value Ref Range MAGNESIUM 2.7 (H) 1.8 - 2.6 mg/dL CBC auto differential Collection Time: 11/10/24 5:28 AM Result Value Ref Range WBC 11.1 (H) 4 - 11 x10E9/L RBC Count 3.21 (L) 3.8 - 5.2 X10E12/L Hemoglobin 9.7 (L) 11.7 - 15.5 g/dL Hematocrit 28.9 (L) 35 - 47 % MCV 90 80 - 100 fL MCH 30.2 27 - 34 pg MCHC 33.5 32 - 36 g/dL RDW 13.8 11.5 - 15 % Platelet Count 19 (LL) 150 - 450 X10E9/L MPV 8.2 7 - 12 fL Myelocyte 2 % Metamyelocytes Relative 2 % Neutrophils Relatives 79 % Lymphocytes Relative 8 % Monocytes Relative 4 % Eosinophils Relative 4 % Basophils Relative 1 % Neutrophils Absolute (M) 8.8 (H) 1.5 - 6.6 10*3/uL Lymphocytes Absolute 0.9 (L) 1.0 - 3.5 10*3/uL Monocytes Absolute 0.5 0.0 - 0.9 10*3/uL Eosinophils Absolute 0.5 (H) 0.0 - 0.4 10*3/uL Basophils Absolute 0.1 0.0 - 0.2 10*3/uL Differential Type CELLAVISION DIFFERENTIAL C-reactive protein Collection Time: 11/10/24 5:28 AM Result Value Ref Range C REACTIVE PROTEIN 14.5 (H) <=0.7 mg/dL Procalcitonin Collection Time: 11/10/24 5:28 AM Result Value Ref Range PROCALCITONIN 0.27 (H) <0.05 ng/mL Narrative <0.50 ng/mL - Low risk of severe sepsis and/or septic shock. <2.00 ng/mL - Recommend retesting within 6-24 hours. >2.00 ng/mL - High risk of sepsis and/or septic shock. Phosphorus Collection Time: 11/10/24 5:28 AM Result Value Ref Range PHOSPHORUS 3.1 2.4 - 4.9 mg/dL Extra Tubes Collection Time: 11/10/24 5:29 AM Narrative The following orders were created for panel order Extra Tubes. Procedure Abnormality Status --------- ------ Light Blue Top[[id number]] Final result Please view results for these tests on the individual orders. Light Blue Top Collection Time: 11/10/24 5:29 AM Result Value Ref Range Extra Tube Auto Resulted Bedside Glucose *Place/Obtain serum glucose if >500 per glucometer. Collection Time: 11/10/24 8:00 AM Result Value Ref Range Bedside Glucose (POC) 100 (H) 65 - 99 mg/dL Vancomycin, random Collection Time: 11/10/24 12:28 PM Result Value Ref Range VANCOMYCIN 22.2 5.0 - 40.0 ug/mL Narrative Peak 30-40 ug/mL Trough 5-20 ug/ml Radiology No results found. HOSPITAL PROBLEM LIST Principal Problem: Pressure injury of right heel, unstageable ([facility] Active Problems: Lymphedema Diabetes mellitus type I ([facility]) Hyperkalemia Hypothyroid PVD (peripheral vascular disease) Hyponatremia Venous stasis ulcer of right lower leg with edema of right lower leg ([facility]) Venous stasis ulcer of left lower leg with edema of left lower leg ([facility]) ASSESSMENT & PLAN Cellulitis lower extremity Lymphedema Rocephin 2 g daily Pharmacy to dose vanco Wound care daily WBC 11.1 CRP 17.6> 14.5 Wound culture- positive for moderate gram negative coccobacilli Blood culture in process Lactate 0.9 MRI bilateral lower leg and feet ordered- pt was unable to tolerate today per RN Lyrica started for neuropathic pain JANNIE on CKD Monitor kidney function daily Avoid nephrotoxic agents Nephrology following Daily weight and I/O Thrombocytopenia Platelets 19 today Hem/onc consulted Hgb stable D/c heparin Essential Hypertension Normotensive Hold losartan Dm type 1 Continue home Lantus Monitor blood glucose a.c. and HS cover sliding scale insulin Hyperkalemia 5.5 on admission, 4.4 today Nephrology following Start loop diuretic today per nephrology Low potassium diet Hypothyroidism Continue home Synthroid DC planning: tbd pending hem/onc consult. Margot Leiva APRN-MARTÍNEZ 11/10/2024 1:18 PM [facility] 7AM-7PM & 7PM-7AM: EpicChat or page through On-Call Finder. Margot Leiva APRN-MARTÍNEZ 11/10/24 1321 ISteven MD, personally performed the face to face diagnostic evaluation on this patient. I have reviewed the CYNTHIA's History, Exam, and MDM and agree with the assessment and plan as written. I have reviewed all laboratory findings and imaging reports/films. Platelets count continues to drop. No active bleeding. No petechiae. PF4 antibody negative Peripheral smear pending Hematology consulted MRI leg and foot pending Wound culture growing pseudomonas Change Rocephin to cefepime Podiatry consulted Dr Steven Mercado MD, MRCP 11/10/2024 8:26 PM Pharmacokinetic Consult - Vancomycin Dosing Rupa Gutierrez is a 83 y.o. female for whom pharmacy has been consulted for vancomycin dosing for osteomyelitis. Today is day 1 of vancomycin therapy. Relevant clinical data and objective history reviewed: Allergies: Lisinopril, Diatrizoate meglumine, Iodine, Levofloxacin in d5w, and Propoxyphene Results from last 3 days Lab Units 11/08/24 1320 CREATININE mg/dL 2.67* BUN mg/dL 81* WBC x10E9/L 13.1* HEMOGLOBIN g/dL 10.1* HEMATOCRIT % 30.1* MCV fL 90 Temp Readings from Last 3 Encounters: 11/08/24 36.5 C (97.7 F) (Oral) 10/27/24 36.7 C (98.1 F) (Oral) 10/13/24 36.6 C (97.9 F) Renal Parameters: No intake/output data recorded. Calculated CrCl (IBW): ~15 ml/min Culture Data: Microbiology Results Procedure Component Value Units Date/Time Blood culture [[id number]] Collected: 11/08/24 1453 Specimen: Blood, Venous Updated: 11/08/24 1507 Blood culture [[id number]] Collected: 11/08/24 1452 Specimen: Blood, Venous Updated: 11/08/24 1507 Wound culture [[id number]] Collected: 11/08/24 1432 Specimen: Swab from Heel, Right Updated: 11/08/24 1506 Wound culture [[id number]] Collected: 11/08/24 1432 Specimen: Swab from Heel, Left Updated: 11/08/24 1505 Concurrent Antibiotics: Anti-infectives (From admission, onward) Start Dose/Rate Route Frequency Ordered Stop 11/08/24 1830 vancomycin (VANCOCIN) 2,000 mg in sodium chloride 0.9 % 500 mL IVPB W/ADAPTER 2,000 mg 250 mL/hr over 120 Minutes intravenous Once 11/08/24 18211/08/24 182 vancomycin (VANCOCIN) IVPB Dosed by Levels intravenous Dosed by Levels 11/08/24 1826 11/08/24 1745 cefTRIAXone (ROCEPHIN) IVPB 2000 mg/50 mL in iso-osmotic dextrose (40 mg/mL premix) 2,000 mg 100 mL/hr over 30 Minutes intravenous Every 24 hours 11/08/24 1738 Recent Vancomycin Serum Concentrations: Indication: osteomyelitis Goal Vancomycin Range: Trough 15-20 mcg/mL Assessment . Patient is being initiated on vancomycin therapy Renal function assessment: Chronic Kidney Disease Patient-specific risk-factors for nephrotoxicity include: pre-existing renal impairment. Plan Vancomycin 2g IVPB x 1 Will dose by random levels Random Vanco level: 11/09 1800 ~24 hr post dose Pharmacy Dosing Service to follow serum concentrations and adjust as needed based on the patient's clinical status. Thank you for consulting. Paulino Skelton RPH documented in this encounter [facility] 11-11-2024 Consult note Associated Order (s): CONSULT MEDICAL ONCOLOGY - HEMATOLOGY & ONCOLOGY HEMATOLOGY ONCOLOGY CONSULT NOTE Tele-Oncology Telemedicine Consult Note Consent Statement: I discussed risks, benefits, and alternatives of a real-time synchronous audiovisual consultation with the patient (and any accompanying persons) including the risks that the patient's personal health details and medical records will be discussed over real-time, synchronous, interactive video/audio/telecommunication technology, the visit will not be recorded without the express consent of both the provider and the patient, and that there are some limitations compared to [id number] evaluations. We elected to proceed. Reason for consult: Thrombocytopenia History of present illness: The patient is a 83 y.o. female with a history stage IIIB chronic kidney disease who was admitted for bilateral lower extremity swelling. She was found to have bilateral lower extremity cellulitis. She also had stage I pressure ulcerations of the posterior right ankle and posterior left ankle. She was found to have acute kidney injury with creatinine up to 2.6. Her blood work or shows showed profound thrombocytopenia with platelet count dropped down to 20s. A swab of the right and left heel were purulent showing 10-24 white blood cells per low power field. There were many g negative cocci bacilli and moderate Gram-negative cocci bacilli on the right and left ankle, respectively. The patient was started on ceftriaxone and vancomycin. The patient denied any significant bleeding or bruising. No blood in the stool or urine no epistaxis. Physical Exam: Vitals: BP 120/63 Pulse 101 Temp 36.7 C (98 F) (Oral) Resp 20 Ht 149.9 cm (4' 11 ) Wt 102.9 kg (226 lb 12.8 oz) SpO2 97% BMI 45.81 kg/m Body mass index is 45.81 kg/m . General: Well appearing, in no acute distress. Physical exam: Awake alert and oriented sclera was anicteric. Respirations nonlabored. There was no stridor. Lungs reveal crackles. Cardiac exam revealed regular rate and rhythm S1-S2 and no murmurs. Abdomen soft nontender. Extremity exam revealed Lower extremity edema and redness. Patient was afebrile. Mood was appropriate and not depressed. Mood and affect: Normal. ECO- Bedridden Objective Past Medical History: Diagnosis Date Anxiety C. difficile diarrhea [place]estive [place] disease Diabetes mellitus type I [place] Hypertension Hypothyroid Insomnia Kidney stone stage 3 Neuropathy Obesity Osteoarthritis Paroxysmal supraventricular tachycardia Peripheral neuropathy Plantar fasciitis Pulmonary HTN [place] PVD (peripheral vascular disease) Visual impairment White coat syndrome with diagnosis of hypertension Past Surgical History: Procedure Laterality Date APPENDECTOMY 1951 SECTION x2 DILATION AND CURETTAGE OF UTERUS DISCECTOMY EYE SURGERY NECK SURGERY TONSILLECTOMY Family History Problem Relation Age of Onset Cancer Mother Ovarian cancer Mother Heart disease Father Social History Socioeconomic History Marital status: Tobacco Use Smoking status: Former Smokeless tobacco: Never Vaping Use Vaping status: Never Used Substance and Sexual Activity Alcohol use: Never Drug use: Never Sexual activity: Defer Other Topics Concern Caffeine Use Yes Comment: coffee Social Drivers of Health Food Insecurity: No Food Insecurity (11/10/2024) Hunger Screening Food Insecurity - Worry: Never True Food Insecurity - Inability: Never True Transportation Needs: No Transportation Needs (11/08/2024) PRAPARE - Transportation Lack of Transportation (Medical): No Lack of Transportation (Non-Medical): No Interpersonal Safety: Not At Risk (11/08/2024) Humiliation, Afraid, Rape, and Kick questionnaire Fear of Current or Ex-Partner: No Emotionally Abused: No Physically Abused: No Sexually Abused: No Housing Instability: Low Risk (11/08/2024) Housing Instability Housing Instability: No Allergies Allergen Reactions Lisinopril Cough Diatrizoate Meglumine Rash Iodine Rash Levofloxacin In D5w Rash Propoxyphene Rash Inpatient scheduled medication: [COMPLETED] cefepime (MAXIPIME) IV, 2,000 mg, intravenous, Once FOLLOWED BY cefepime (MAXIPIME) IV, 1,000 mg, intravenous, Q24H cyanocobalamin, 1,000 mcg, oral, Daily furosemide, 40 mg, oral, Daily insulin glargine, 60 Units, subcutaneous, Daily insulin lispro, 2-10 Units, subcutaneous, With meals and nightly levothyroxine, 25 mcg, oral, Daily pantoprazole, 40 mg, oral, QAM AC pregabalin, 25 mg, oral, BID sodium chloride, 3 mL, intravenous, Q12H MARLENE Review of Systems Recent Labs Recent Results (from the past 72 hours) Bedside Glucose *Place/Obtain serum glucose if >500 per glucometer. Collection Time: 11/08/24 5:55 PM Result Value Ref Range Bedside Glucose (POC) 116 (H) 65 - 99 mg/dL Lactate w/ Reflex Collection Time: 11/08/24 6:08 PM Result Value Ref Range LACTATE W/REFLEX 1.2 0.4 - 2.0 mmol/L PST TOP Collection Time: 11/08/24 6:10 PM Result Value Ref Range Extra Tube Auto Resulted Bedside Glucose *Place/Obtain serum glucose if >500 per glucometer. Collection Time: 11/08/24 9:25 PM Result Value Ref Range Bedside Glucose (POC) 156 (H) 65 - 99 mg/dL Lactate w/ Reflex Collection Time: 11/09/24 12:08 AM Result Value Ref Range LACTATE W/REFLEX 1.1 0.4 - 2.0 mmol/L Comprehensive metabolic panel Collection Time: 11/09/24 6:12 AM Result Value Ref Range SODIUM 135 134 - 146 mmol/L POTASSIUM 5.3 (H) 3.5 - 5.0 mmol/L CHLORIDE 106 98 - 109 mmol/L CARBON DIOXIDE 22 22 - 32 mmol/L ANION GAP 7 5 - 15 mmol/L BLOOD UREA NITROGEN 76 (H) 5 - 27 mg/dL CREATININE 2.35 (H) 0.40 - 1.00 mg/dL GLUCOSE 82 65 - 99 mg/dL CALCIUM 8.5 8.5 - 10.5 mg/dL TOTAL PROTEIN 7.7 6.0 - 8.0 g/dL ALBUMIN 3.3 3.2 - 5.3 g/dL ALKALINE PHOSPHATASE 85 39 - 130 U/L AST 22 <=41 U/L ALT 18 <=31 U/L BILIRUBIN,TOTAL 0.6 0.3 - 1.2 mg/dL EGFR Non-Race Dependent 20 (L) >=60 ml/min/1.73sq.m Magnesium Collection Time: 11/09/24 6:12 AM Result Value Ref Range MAGNESIUM 2.9 (H) 1.8 - 2.6 mg/dL C-reactive protein Collection Time: 11/09/24 6:12 AM Result Value Ref Range C REACTIVE PROTEIN 17.6 (H) <=0.7 mg/dL Procalcitonin Collection Time: 11/09/24 6:12 AM Result Value Ref Range PROCALCITONIN 0.45 (H) <0.05 ng/mL Lactate w/ Reflex Collection Time: 11/09/24 6:12 AM Result Value Ref Range LACTATE W/REFLEX 0.9 0.4 - 2.0 mmol/L Vitamin D 25 hydroxy Collection Time: 11/09/24 6:12 AM Result Value Ref Range VITAMIN D 25 HYD TOT 63.5 30.0 - 100.0 ng/mL Iron and TIBC Collection Time: 11/09/24 6:12 AM Result Value Ref Range IRON 29 (L) 50 - 170 ug/dL TRANSFERRIN 184 168 - 336 mg/dL IRON BINDING 258 250 - 425 ug/dL IRON SATURATION 11 (L) 15 - 50 % SATURATION Ferritin Collection Time: 11/09/24 6:12 AM Result Value Ref Range FERRITIN 256 11 - 307 ng/mL Vitamin B12 Collection Time: 11/09/24 6:12 AM Result Value Ref Range VITAMIN B12 214 180 - 914 pg/mL Folate Collection Time: 11/09/24 6:12 AM Result Value Ref Range FOLIC ACID 12.3 >5.8 ng/mL Light Blue Top Collection Time: 11/09/24 6:13 AM Result Value Ref Range Extra Tube Auto Resulted CBC auto differential Collection Time: 11/09/24 6:33 AM Result Value Ref Range WBC 11.2 (H) 4 - 11 x10E9/L RBC Count 3.33 (L) 3.8 - 5.2 X10E12/L Hemoglobin 10.0 (L) 11.7 - 15.5 g/dL Hematocrit 30.0 (L) 35 - 47 % MCV 90 80 - 100 fL MCH 30.1 27 - 34 pg MCHC 33.4 32 - 36 g/dL RDW 13.7 11.5 - 15 % Platelet Count 27 (LL) 150 - 450 X10E9/L MPV 8.3 7 - 12 fL Neutrophils Relative 75.7 % Lymphocytes Relative 6.5 % Monocytes Relative 14.0 % Eosinophils Relative 3.0 % Basophils Relative 0.8 % Neutrophils Absolute (A) 8.5 (H) 1.5 - 6.6 10*3/uL Lymphocytes Absolute 0.7 (L) 1.0 - 3.5 10*3/uL Monocytes Absolute 1.6 (H) 0.0 - 0.9 10*3/uL Eosinophils Absolute 0.3 0.0 - 0.4 10*3/uL Basophils Absolute 0.1 0.0 - 0.2 10*3/uL Differential Type AUTOMATED DIFFERENTIAL Urinalysis Collection Time: 11/09/24 10:42 AM Specimen: Urine, Clean Catch Midstream Result Value Ref Range COLOR Yellow Yellow, Colorless TURBIDITY Clear Clear SPECIFIC GRAVITY 1.020 1.003 - 1.035 NITRITE Negative Negative PH,URINE 6.0 5.0 - 8.5 LEUKOCYTE ESTERASE Trace (A) Negative PROTEIN Negative Negative KETONES (URINE) Negative Negative UROBILINOGEN 0.2 eu/dL 0.2 eu/dL, 1.0 eu/dL BILIRUBIN (URINE) Negative Negative BLOOD/HGB Negative Negative SQUAMOUS EPITHELIUM 12 (H) 0 - 5 W.B.CELLS 1 0 - 5 GLUCOSE (URINE) Negative Negative, 250 mg/dL Sodium, urine, random Collection Time: 11/09/24 10:42 AM Specimen: Urine, Clean Catch Midstream Result Value Ref Range URINE SODIUM,RANDOM 20 mmol/L Urine Creatinine,random Collection Time: 11/09/24 10:42 AM Specimen: Urine, Clean Catch Midstream Result Value Ref Range URINE CREATININE,RDM 96.22 mg/dL Protein, urine, random Collection Time: 11/09/24 10:42 AM Specimen: Urine, Clean Catch Midstream Result Value Ref Range URINE PROTEIN, RANDOM (MG/L) 210 (H) <120 mg/L Bedside Glucose *Place/Obtain serum glucose if >500 per glucometer. Collection Time: 11/09/24 11:27 AM Result Value Ref Range Bedside Glucose (POC) 144 (H) 65 - 99 mg/dL CBC auto differential Collection Time: 11/09/24 12:41 PM Result Value Ref Range WBC 10.5 4 - 11 x10E9/L RBC Count 3.27 (L) 3.8 - 5.2 X10E12/L Hemoglobin 9.9 (L) 11.7 - 15.5 g/dL Hematocrit 29.4 (L) 35 - 47 % MCV 90 80 - 100 fL MCH 30.3 27 - 34 pg MCHC 33.6 32 - 36 g/dL RDW 13.7 11.5 - 15 % Platelet Count 25 (LL) 150 - 450 X10E9/L MPV 8.7 7 - 12 fL Neutrophils Relative 71.1 % Lymphocytes Relative 11.4 % Monocytes Relative 13.8 % Eosinophils Relative 3.1 % Basophils Relative 0.6 % Neutrophils Absolute (A) 7.4 (H) 1.5 - 6.6 10*3/uL Lymphocytes Absolute 1.2 1.0 - 3.5 10*3/uL Monocytes Absolute 1.4 (H) 0.0 - 0.9 10*3/uL Eosinophils Absolute 0.3 0.0 - 0.4 10*3/uL Basophils Absolute 0.1 0.0 - 0.2 10*3/uL Differential Type AUTOMATED DIFFERENTIAL Potassium Collection Time: 11/09/24 12:41 PM Result Value Ref Range POTASSIUM 5.2 (H) 3.5 - 5.0 mmol/L Folate Collection Time: 11/09/24 12:41 PM Result Value Ref Range FOLIC ACID 12.9 >5.8 ng/mL Vitamin B12 Collection Time: 11/09/24 12:41 PM Result Value Ref Range VITAMIN B12 213 180 - 914 pg/mL Lactate w/ Reflex Collection Time: 11/09/24 12:42 PM Result Value Ref Range LACTATE W/REFLEX 1.1 0.4 - 2.0 mmol/L Clinical Pathology Blood Smear Review Clinical Collection Time: 11/09/24 1:16 PM Result Value Ref Range Case Report Clinical Pathology Report Case: [id number] Authorizing Provider: JAM Dunlap Collected: 11/09/2024 1316 Ordering Location: [facility] Received: 11/09/2024 1354 [facility] Pathologist: Tameka Adams DO Specimen: Blood, Venous Final Diagnosis Normocytic anemia without significant polychromasia or morphologic evidence of hemolysis. Thrombocytopenia with morphologically unremarkable platelets. Rare large platelets identified. Microscopic Description CBC (11/09/2024): WBC = 10.5x10E9/L; HGB = 9.9g/dL; HCT =29.4% MCV = 90fL; PLT = [id number]/L White blood cells are within normal limits with normal morphology. Circulating blasts are not identified. White blood cells are otherwise unremarkable. Red blood cells show moderate normocytic anemia with mild anisopoikilocytosis and no increase in schistocytes. Platelets are markedly decreased with normal size and granulation. Very rare large platelets are seen. Clinical Information 83 year old woman with history of diabetes, under treatment for lower extremity cellulitis/osteomeyelitis. Concern for hemolysis. Embedded Images Heparin PF4 AB Collection Time: 11/09/24 1:57 PM Result Value Ref Range HEPARIN PF4 ANTIBODY (HIT) 0.137 <0.400 OD Bedside Glucose *Place/Obtain serum glucose if >500 per glucometer. Collection Time: 11/09/24 4:43 PM Result Value Ref Range Bedside Glucose (POC) 185 (H) 65 - 99 mg/dL Bedside Glucose *Place/Obtain serum glucose if >500 per glucometer. Collection Time: 11/09/24 9:35 PM Result Value Ref Range Bedside Glucose (POC) 211 (H) 65 - 99 mg/dL Comprehensive metabolic panel Collection Time: 11/10/24 5:28 AM Result Value Ref Range SODIUM 138 134 - 146 mmol/L POTASSIUM 4.4 3.5 - 5.0 mmol/L CHLORIDE 104 98 - 109 mmol/L CARBON DIOXIDE 22 22 - 32 mmol/L ANION GAP 12 5 - 15 mmol/L BLOOD UREA NITROGEN 65 (H) 5 - 27 mg/dL CREATININE 1.86 (H) 0.40 - 1.00 mg/dL GLUCOSE 99 65 - 99 mg/dL CALCIUM 8.8 8.5 - 10.5 mg/dL TOTAL PROTEIN 7.2 6.0 - 8.0 g/dL ALBUMIN 2.9 (L) 3.2 - 5.3 g/dL ALKALINE PHOSPHATASE 78 39 - 130 U/L AST 19 <=41 U/L ALT 15 <=31 U/L BILIRUBIN,TOTAL 0.8 0.3 - 1.2 mg/dL EGFR Non-Race Dependent 27 (L) >=60 ml/min/1.73sq.m Magnesium Collection Time: 11/10/24 5:28 AM Result Value Ref Range MAGNESIUM 2.7 (H) 1.8 - 2.6 mg/dL CBC auto differential Collection Time: 11/10/24 5:28 AM Result Value Ref Range WBC 11.1 (H) 4 - 11 x10E9/L RBC Count 3.21 (L) 3.8 - 5.2 X10E12/L Hemoglobin 9.7 (L) 11.7 - 15.5 g/dL Hematocrit 28.9 (L) 35 - 47 % MCV 90 80 - 100 fL MCH 30.2 27 - 34 pg MCHC 33.5 32 - 36 g/dL RDW 13.8 11.5 - 15 % Platelet Count 19 (LL) 150 - 450 X10E9/L MPV 8.2 7 - 12 fL Myelocyte 2 % Metamyelocytes Relative 2 % Neutrophils Relatives 79 % Lymphocytes Relative 8 % Monocytes Relative 4 % Eosinophils Relative 4 % Basophils Relative 1 % Neutrophils Absolute (M) 8.8 (H) 1.5 - 6.6 10*3/uL Lymphocytes Absolute 0.9 (L) 1.0 - 3.5 10*3/uL Monocytes Absolute 0.5 0.0 - 0.9 10*3/uL Eosinophils Absolute 0.5 (H) 0.0 - 0.4 10*3/uL Basophils Absolute 0.1 0.0 - 0.2 10*3/uL Differential Type CELLAVISION DIFFERENTIAL C-reactive protein Collection Time: 11/10/24 5:28 AM Result Value Ref Range C REACTIVE PROTEIN 14.5 (H) <=0.7 mg/dL Procalcitonin Collection Time: 11/10/24 5:28 AM Result Value Ref Range PROCALCITONIN 0.27 (H) <0.05 ng/mL Phosphorus Collection Time: 11/10/24 5:28 AM Result Value Ref Range PHOSPHORUS 3.1 2.4 - 4.9 mg/dL Light Blue Top Collection Time: 11/10/24 5:29 AM Result Value Ref Range Extra Tube Auto Resulted Bedside Glucose *Place/Obtain serum glucose if >500 per glucometer. Collection Time: 11/10/24 8:00 AM Result Value Ref Range Bedside Glucose (POC) 100 (H) 65 - 99 mg/dL Reticulocytes Collection Time: 11/10/24 9:17 AM Result Value Ref Range Reticulocyte Count 1.8 0.4 - 2.2 % LDH Collection Time: 11/10/24 9:17 AM Result Value Ref Range LDH 195 100 - 235 U/L Haptoglobin Collection Time: 11/10/24 9:17 AM Result Value Ref Range HAPTOGLOBIN 207 32 - 228 mg/dL Folate Collection Time: 11/10/24 9:17 AM Result Value Ref Range FOLIC ACID 13.5 >5.8 ng/mL Vitamin B12 Collection Time: 11/10/24 9:17 AM Result Value Ref Range VITAMIN B12 182 180 - 914 pg/mL Ferritin Collection Time: 11/10/24 9:17 AM Result Value Ref Range FERRITIN 235 11 - 307 ng/mL Iron and TIBC Collection Time: 11/10/24 9:17 AM Result Value Ref Range IRON 45 (L) 50 - 170 ug/dL TRANSFERRIN 164 (L) 168 - 336 mg/dL IRON BINDING 230 (L) 250 - 425 ug/dL IRON SATURATION 20 15 - 50 % SATURATION Direct Rafaela Collection Time: 11/10/24 9:17 AM Result Value Ref Range Polyspecific KACIE Negative Bedside Glucose *Place/Obtain serum glucose if >500 per glucometer. Collection Time: 11/10/24 11:21 AM Result Value Ref Range Bedside Glucose (POC) 233 (H) 65 - 99 mg/dL Vancomycin, random Collection Time: 11/10/24 12:28 PM Result Value Ref Range VANCOMYCIN 22.2 5.0 - 40.0 ug/mL Bedside Glucose *Place/Obtain serum glucose if >500 per glucometer. Collection Time: 11/10/24 4:01 PM Result Value Ref Range Bedside Glucose (POC) 204 (H) 65 - 99 mg/dL Bedside Glucose *Place/Obtain serum glucose if >500 per glucometer. Collection Time: 11/10/24 9:09 PM Result Value Ref Range Bedside Glucose (POC) 312 (H) 65 - 99 mg/dL Comprehensive metabolic panel Collection Time: 11/11/24 5:26 AM Result Value Ref Range SODIUM 137 134 - 146 mmol/L POTASSIUM 3.9 3.5 - 5.0 mmol/L CHLORIDE 101 98 - 109 mmol/L CARBON DIOXIDE 24 22 - 32 mmol/L ANION GAP 12 5 - 15 mmol/L BLOOD UREA NITROGEN 47 (H) 5 - 27 mg/dL CREATININE 1.64 (H) 0.40 - 1.00 mg/dL GLUCOSE 207 (H) 65 - 99 mg/dL CALCIUM 8.5 8.5 - 10.5 mg/dL TOTAL PROTEIN 5.9 (L) 6.0 - 8.0 g/dL ALBUMIN 2.5 (L) 3.2 - 5.3 g/dL ALKALINE PHOSPHATASE 71 39 - 130 U/L AST 17 <=41 U/L ALT 14 <=31 U/L BILIRUBIN,TOTAL 0.5 0.3 - 1.2 mg/dL EGFR Non-Race Dependent 31 (L) >=60 ml/min/1.73sq.m Magnesium Collection Time: 11/11/24 5:26 AM Result Value Ref Range MAGNESIUM 2.4 1.8 - 2.6 mg/dL CBC auto differential Collection Time: 11/11/24 5:26 AM Result Value Ref Range WBC 9.4 4 - 11 x10E9/L RBC Count 2.86 (L) 3.8 - 5.2 X10E12/L Hemoglobin 8.7 (L) 11.7 - 15.5 g/dL Hematocrit 25.8 (L) 35 - 47 % MCV 90 80 - 100 fL MCH 30.6 27 - 34 pg MCHC 34.0 32 - 36 g/dL RDW 13.5 11.5 - 15 % Platelet Count 28 (LL) 150 - 450 X10E9/L MPV 9.0 7 - 12 fL Neutrophils Relative 58.7 % Lymphocytes Relative 21.4 % Monocytes Relative 15.7 % Eosinophils Relative 3.4 % Basophils Relative 0.8 % Neutrophils Absolute (A) 5.5 1.5 - 6.6 10*3/uL Lymphocytes Absolute 2.0 1.0 - 3.5 10*3/uL Monocytes Absolute 1.5 (H) 0.0 - 0.9 10*3/uL Eosinophils Absolute 0.3 0.0 - 0.4 10*3/uL Basophils Absolute 0.1 0.0 - 0.2 10*3/uL Differential Type AUTOMATED DIFFERENTIAL C-reactive protein Collection Time: 11/11/24 5:26 AM Result Value Ref Range C REACTIVE PROTEIN 10.9 (H) <=0.7 mg/dL Procalcitonin Collection Time: 11/11/24 5:26 AM Result Value Ref Range PROCALCITONIN 0.20 (H) <0.05 ng/mL Phosphorus Collection Time: 11/11/24 5:26 AM Result Value Ref Range PHOSPHORUS 2.6 2.4 - 4.9 mg/dL Fibrinogen Collection Time: 11/11/24 5:26 AM Result Value Ref Range FIBRINOGEN 417 190 - 480 mg/dL Bedside Glucose *Place/Obtain serum glucose if >500 per glucometer. Collection Time: 11/11/24 12:28 PM Result Value Ref Range Bedside Glucose (POC) 240 (H) 65 - 99 mg/dL Recent Imaging: MR foot right without contrast Result Date: 11/11/2024 Narrative: History: Pain.Swelling. Edema MRI Right Foot Comparison: Technique: Multiplanar multisequence imaging of the foot was obtained without contrast. Findings/impression: Study is significantly degraded by motion artifact. Patient had involuntary motion and could not tolerate the examination. The examination was prematurely terminated. Based on the sequences obtained no obvious evidence of osteomyelitis is seen involving the metatarsals or digits. No joint effusion. Nonspecific soft tissue edema is noted dorsally but also along the plantar aspect. Please correlate with the clinical picture.. If in the future the patient tolerated imaging we would be happy reimage the patient. No obvious evidence of abscess. Hampered study Finalized by Dinorah Kaur MD on 11/11/2024 2:06 PM MR lower leg right without contrast Result Date: 11/10/2024 Narrative: MRI right lower leg without contrast HISTORY: Infection, osteomyelitis. COMPARISON: None available TECHNIQUE: Multiplanar, multisequence MR imaging was performed according to standard protocol. Incomplete exam due to patient intolerance. FINDINGS: Regions of skin thickening, edematous changes of the lower legs bilaterally without drainable fluid collection. No fracture or malalignment. No evidence of osteomyelitis. IMPRESSION: 1. Findings of cellulitis, no abscess, no evidence of osteomyelitis. Finalized by Chaka Patel MD on 11/10/2024 1:33 PM MR lower leg left without contrast Result Date: 11/10/2024 Narrative: MR LOWER LEG LT WO CONT CLINICAL INFORMATION: suspected osteomyelitis COMPARISON: None. PROCEDURE: Routine MRI of the left lower extremity was obtained without contrast. Multisequence, multiplanar imaging obtained. FINDINGS: Please note, only localizer, T1 coronal, STIR coronal, T2 fat-sat axial, and T1 axial images were able to be obtained. There is extensive motion artifact degrading assessment. There is edema present in the soft tissues. There is diffuse muscular atrophy. Severe degenerative changes of the left knee joint. No fluid collection is identified. No marrow signal replacement or fracture. IMPRESSION: * Suboptimal exam due to artifact. * No marrow signal replacement or significant bone marrow edema to suggest osteomyelitis. * Extensive edema in the soft tissues, correlate for cellulitis. Finalized by Paulino Correa MD on 11/10/2024 1:23 PM X-ray foot right minimum 3 views Result Date: 11/08/2024 Narrative: XR FOOT RT MIN 3 VWS 11/08/2024 1:36 PM INDICATION: Foot wounds, rule out osteo COMPARISON: Right foot 04/10/2023 TECHNIQUE: 3 views of the right foot were obtained Impression: 1. Diffusely decreased bony mineralization limits evaluation for osteomyelitis. No focal erosive or destructive changes identified in the foot. 2. Plantar calcaneal and Achilles enthesophytes. 3. Circumferential soft tissue swelling in the ankle. Extensive vascular calcifications. Finalized by Randolph Ramirez MD on 11/08/2024 1:57 PM X-ray foot left minimum 3 views Result Date: 11/08/2024 Narrative: XR FOOT LT MIN 3 VWS 11/08/2024 1:35 PM INDICATION: Wounds on foot, rule out osteo COMPARISON: None TECHNIQUE: 3 views of the left foot were obtained IMPRESSION: 1. Decreased bony mineralization in the foot limits evaluation for osteomyelitis. No definite focal erosive or destructive changes in the foot. 2. Extensive vascular calcifications. Circumferential soft tissue swelling in the ankle. Finalized by Randolph Ramirez MD on 11/08/2024 1:44 PM X-ray wrist right minimum 3 views Result Date: 10/21/2024 Narrative: XR WRIST 3+ VIEWS RIGHT 10/19/2024 2:08 PM CLINICAL INDICATIONS: Pain. COMPARISON: None Impression: FINDINGS/IMPRESSION: Distal radius fracture with apex medial and palmar angulation, slight impaction, slight dorsal displacement of the major fracture fragment. Resultant possible ovarian cyst. Soft tissue swelling about the wrist. Vascular calcific dictation. Osteopenia. Moderate first CMC osteoarthrosis. Electronically signed: Kaushik Mcgee MD. X-ray forearm right 2 views Result Date: 10/21/2024 Narrative: XR FOREARM 2 VIEWS RIGHT 10/19/2024 2:08 PM CLINICAL INDICATIONS: Wrist pain, injury. COMPARISON: None Impression: FINDINGS/IMPRESSION: Distal radius fracture, wrist radiographs dictated centrally. No acute fracture or dislocation of the radius or ulnar diaphyses. Vascular calcifications. Osteopenia. Well-corticated osseous excrescence about the lateral distal humeral epicondyle, presumably related to tendinopathy. Olecranon enthesophyte. Electronically signed: Kaushik Mcgee MD. Diagnosis Problem list: Patient Active Problem List Diagnosis Abdominal pain Calculus of ureter BMI 45.0-49.9, [place] Morbid obesity [place] Mild tricuspid regurgitation Pulmonary hypertension [place] Essential hypertension Preop cardiovascular exam Lymphedema Diabetes mellitus type I [place] Cellulitis of lower extremity, unspecified laterality Hyperkalemia Hypothyroid PVD (peripheral vascular disease) Hyponatremia Pressure injury of right heel, unstageable [place] Venous stasis ulcer of right lower leg with edema of right lower leg [place] Venous stasis ulcer of left lower leg with edema of left lower leg ([facility] Code Status: Full Code Assessment/Plan Impression: New onset severe thrombocytopenia 10/2024 Acute renal insufficiency Bilateral lower extremity edema and cellulitis Plan: The patient's hospital stay revealed, she developed significant thrombocytopenia, platelet count dropped from 204K on November 08 to 27K. The patient's B12 level is normal. Haptoglobin is within normal range no evidence of hemolysis. The patient's current heparin PF4 antibody level is within normal range. Thrombocytopenia could be due to sepsis with marrow suppression. Peripheral blood smear is pending but my clinical suspicion for TTP or HUS is low. Continue supportive care, check CBC daily. Transfuse platelet to keep it around 50 K if she develop any active bleeding. Thank you for the consultation. Eliseo Moody M.D. [facility] [address] [place] [address] November 11, 2024, 4:52 PM Podiatric consultation. Patient is seen for evaluation of decubitus ulceration plantar surface of the right heel; which apparently developed several weeks previous after stepping on some type of cord. Patient has been admitted from local detention through ED for weeping ulcerations of the lower extremities with skin and soft tissue infection. Patient was recently discharged from inpatient care on 10/27/2024. Wound care service has assessed the condition and initiated wound care measures. Medical history: Extensive including IDDM and PVD. Clinical exam: Patient is alert and oriented. Pleasant disposition. Appears in no distress. Focused exam right foot: Well-defined full-thickness wound located on the plantar surface of the heel. The wound base is 100% dry, well adhered eschar. The margins are minimally inflamed (blanchable), dry, without maceration. Moderate amount of marginal exfoliative slough. The site is non-inflamed, non-fluctuant. There are no clinical signs of localized cellulitis or skin/soft tissue infection. Wound measurements: 1.5 x 1.0 x 0.1 cm. Extensive brawny edema of the lower extremities; generally sparing of the dorsal surface of the feet. Unable to palpate DP or PT pulse. Digits are slightly cool but appear well-perfused. Radiographs: Report noted: Unremarkable for acute lytic or erosive changes. Chronic changes appreciated. Microbiology: G stain of initial swab noted. Many Gram-negative cocci bacilli; most likely employee representative of contamination and wound bioburden. Impression: 1. Stable Chris stage II decubitus ulceration plantar surface of the right heel. 2. Chronic lower extremity brawny edema with weeping wounds and cellulitis. 3. IDDM 4. Peripheral arterial disease. 5. Medical comorbidities. Care plan: Concur with treatment outlined by wound care service. Offloading measures reviewed with patient. Wound debridement not indicated. Thank you for allowing me to participate in the care of this patient. Images from the original note were not included. Wound Care Service Line Consult Note Patient: Rupa Gutierrez Date of Admission: 11/08/2024 12:30 PM Request for Consult: BLE wounds/cellultis PCP: ANGELINE BRIDGES MD Admitted Chief Complaint: Chief Complaint Patient presents with Leg Pain Subjective/HPI: History of Present Illness: Rupa Gutierrez is a 83 y.o. former smoker female who presented with bilateral leg and weeping wounds, presents from a local detention, recently hospital discharged 10/27/2024. . Past medical history includes lymphedema, hypertension, cellulitis bilateral lower extremities, diabetes. Wound care consulted for chronic leg swelling with ulceration that started prior to hospital admission. Wound culture positive for moderate Gram-negative coccobacillus. Blood culture in progress. Pending MRI bilateral lower legs and feet. Patient with elevated CRP and ESR. Currently receiving IV vancomycin and Rocephin PMH: Past Medical History: Diagnosis Date Anxiety C. difficile diarrhea CHF (congestive heart failure) [place] Dental disease Diabetes mellitus type I [place] Hypertension Hypothyroid Insomnia Kidney stone stage 3 Neuropathy Obesity Osteoarthritis Paroxysmal supraventricular tachycardia Peripheral neuropathy Plantar fasciitis Pulmonary HTN [place] PVD (peripheral vascular disease) Visual impairment White coat syndrome with diagnosis of hypertension Patient Active Problem List Diagnosis Abdominal pain Calculus of ureter BMI 45.0-49.9, adult [place] Morbid obesity [place] Mild tricuspid regurgitation Pulmonary hypertension [place] Essential hypertension Preop cardiovascular exam Lymphedema Diabetes mellitus type I [place] Cellulitis of lower extremity, unspecified laterality Hyperkalemia Hypothyroid PVD (peripheral vascular disease) Hyponatremia Pressure injury of right heel, unstageable [place] Venous stasis ulcer of right lower leg with edema of right lower leg [place] Venous stasis ulcer of left lower leg with edema of left lower leg [place] PSH: Past Surgical History: Procedure Laterality Date APPENDECTOMY 1951 SECTION x2 DILATION AND CURETTAGE OF UTERUS DISCECTOMY EYE SURGERY NECK SURGERY TONSILLECTOMY Allergies: Allergies Allergen Reactions Lisinopril Cough Diatrizoate Meglumine Rash Iodine Rash Levofloxacin In D5w Rash Propoxyphene Rash Home Meds: Medications Prior to Admission Medication Sig Dispense Refill Last Dose/Taking furosemide (LASIX) 20 mg tablet Take 2 tablets (40 mg total) by mouth daily with breakfast AND 1 tablet (20 mg total) Daily before evening meal. 40 mg in am and 20 mg in pm. 90 tablet 6 11/08/2024 insulin aspart U-100 (NovoLOG) 100 unit/mL injection Inject under the skin in the morning and at noon and in the evening. Inject before meals. As directed per sliding scale. 11/08/2024 insulin detemir (LEVEMIR FLEXPEN SUBQ) Inject 60 Units under the skin in the morning. 11/08/2024 levothyroxine (SYNTHROID, LEVOTHROID) 25 MCG tablet Take 1 tablet (25 mcg total) by mouth nightly. 11/08/2024 losartan (COZAAR) 100 mg tablet take 1 tablet by mouth in the morning 90 tablet 3 11/08/2024 magnesium oxide (MAGOX) 400 mg tablet Take 1 tablet (400 mg total) by mouth in the morning. 90 tablet 3 11/08/2024 pantoprazole (PROTONIX) 40 mg EC tablet Take 1 tablet (40 mg total) by mouth in the morning. 11/08/2024 zolpidem (AMBIEN) 10 mg tablet Take 1 tablet (10 mg total) by mouth nightly as needed for sleep. 11/07/2024 acetaminophen-codeine (TYLENOL #3) 300-30 mg per tablet Take 1 tablet by mouth every 4 (four) hours as needed for pain. LORazepam (ATIVAN) 0.5 mg tablet Take 1 tablet (0.5 mg total) by mouth daily as needed. Social History: Social History Socioeconomic History Marital status: Spouse name: Not on file Number of children: Not on file Years of education: Not on file Highest education level: Not on file Occupational History Not on file Tobacco Use Smoking status: Former Smokeless tobacco: Never Vaping Use Vaping status: Never Used Substance and Sexual Activity Alcohol use: Never Drug use: Never Sexual activity: Defer Other Topics Concern Caffeine Use Yes Comment: coffee Social History Narrative Not on file Social Drivers of Health Financial Resource Strain: Not on file Food Insecurity: No Food Insecurity (11/08/2024) Hunger Screening Food Insecurity - Worry: Never True Food Insecurity - Inability: Never True Transportation Needs: No Transportation Needs (11/08/2024) PRAPARE - Transportation Lack of Transportation (Medical): No Lack of Transportation (Non-Medical): No Physical Activity: Not on file Stress: Not on file Social Connections: Not on file Interpersonal Safety: Not At Risk (11/08/2024) Humiliation, Afraid, Rape, and Kick questionnaire Fear of Current or Ex-Partner: No Emotionally Abused: No Physically Abused: No Sexually Abused: No Housing Instability: Low Risk (11/08/2024) Housing Instability Housing Instability: No Family History: Family History Problem Relation Age of Onset Cancer Mother Ovarian cancer Mother Heart disease Father I have personal reviewed past medical history including surgeries, social history, and family history. I have also reviewed allergies and home medications. They are documented in this note to their detail, and if there are none noted, they will further indicate no pertinent history. Review of Systems Review of Systems Constitutional: Negative. Negative for activity change, appetite change and fever. HENT: Negative. Negative for trouble swallowing. Eyes: Positive for visual disturbance. Respiratory: Positive for shortness of breath. Negative for cough and wheezing. Cardiovascular: Positive for leg swelling. Negative for chest pain and palpitations. Gastrointestinal: Negative. Negative for abdominal distention, nausea and vomiting. Genitourinary: Positive for difficulty urinating. Negative for dysuria, frequency and urgency. Musculoskeletal: Positive for back pain and gait problem. Negative for neck stiffness. Skin: Positive for wound. Negative for color change. Neurological: Negative for numbness and headaches. Objective: Physical Exam Vital Signs: BP 144/54 Pulse 95 Temp 36.3 C (97.3 F) (Temporal) Resp 18 Ht 149.9 cm (4' 11 ) Wt 103.1 kg (227 lb 3.2 oz) SpO2 99% BMI 45.89 kg/m Pain: with palpation Pain Assessment: 0-10 Pain Score: (pain with movement, does not rate) Pain Location: Foot Pain Descriptors: Aching, Burning Patient's Stated Acceptable Pain Level: No pain Physical Exam Vitals and nursing note reviewed. Constitutional: Appearance: She is well-developed. HENT: Head: Normocephalic and atraumatic. Cardiovascular: Rate and Rhythm: Normal rate. Rhythm irregular. Heart sounds: No murmur heard. No friction rub. Comments: Bilateral doppler signals weak, difficult to locate due to body habitus Bilateral lower extremity non compressible edema, feet relatively spared, weeping serous fluid + stemmers sign bilateral Pulmonary: Effort: No respiratory distress. Breath sounds: Normal breath sounds. Abdominal: General: Bowel sounds are normal. Palpations: Abdomen is soft. Musculoskeletal: General: Normal range of motion. Cervical back: Normal range of motion. Skin: General: Skin is warm and dry. Neurological: Mental Status: She is alert and oriented to person, place, and time. Wound Assessment: Wound 10/24/24 2 Other (comment) Calf Left;Posterior (Active) Wound Image 11/10/24 1000 Site Assessment Red;Moist;Painful 11/10/24 1000 Ana-wound Assessment Blanchable erythema;[place] 11/10/24 1000 Dressing Type Xeroform;Abdominal dressing;Gauze Rolled/Kerlix 11/10/24 1000 Dressing Changed Changed 11/10/24 1000 Dressing Status Clean;Dry;Intact 11/10/24 1000 Wound Bed Granulation (%) 75% to 100% 11/10/24 1000 Wound Bed Slough (%) < 25% 11/10/24 1000 Wound 10/26/24 3 Diabetic Ulcer Heel Right;Posterior (Active) Wound Image 11/10/24 1000 Site Assessment Eschar Stable 11/10/24 1000 Ana-wound Assessment Dry 11/10/24 1000 Wound Length (cm) 1.5 cm 11/10/24 1000 Wound Width (cm) 1 cm 11/10/24 1000 Wound Surface Area (cm^2) 1.18 cm^2 11/10/24 1000 Change in Wound Size % -25.53 11/10/24 1000 Drainage Amount None 11/10/24 1000 Dressing Type Honey Dressing;Xeroform;Gauze Rolled/Kerlix;Abdominal dressing 11/10/24 1000 Dressing Changed New 11/10/24 1000 Dressing Status Clean;Intact;Dry 11/10/24 1000 Wound Bed Eschar (%) 100% 11/10/24 1000 Wound 10/26/24 4 Other (comment) Calf Right;Medial (Active) Wound Image 11/10/241099 Site Assessment Yellow;Moist;Painful;[place] 11/10/241099 Ana-wound Assessment Blanchable erythema 11/10/241099 Wound Length (cm) 3.5 cm 11/10/241099 Wound Width (cm) 6 cm 11/10/241099 Wound Surface Area (cm^2) 16.49 cm^2 11/10/241099 Drainage Description Serosanguineous;Yellow 11/10/241099 Drainage Amount Moderate 11/10/241099 Dressing Type Xeroform;Abdominal dressing;Gauze Rolled/Kerlix 11/10/241099 Dressing Changed Changed 11/10/241099 Dressing Status Clean;Dry;Intact 11/10/241099 Wound Bed Slough (%) 100% 11/10/241099 Measurable Improvement: new wound encounter Labs/Studies Reviewed: Labs: Results from last 7 days Lab Units 11/10/24 0528 11/09/24 1241 11/09/24 0633 11/08/24 1320 WBC x10E9/L 11.1* 10.5 11.2* 13.1* HEMOGLOBIN g/dL 9.7* 9.9* 10.0* 10.1* HEMATOCRIT % 28.9* 29.4* 30.0* 30.1* MCV fL 90 90 90 90 PLATELETS X10E9/L 19* 25* 27* 204 Results from last 7 days Lab Units 11/10/24 0800 11/10/24 0528 11/09/24 2135 11/09/24 1643 11/09/24 1241 11/09/24 1127 11/09/24 0612 11/08/24 1755 11/08/24 1622 11/08/24 1320 POTASSIUM mmol/L -- 4.4 -- -- 5.2* -- 5.3* -- 5.3* 5.5* CALCIUM mg/dL -- 8.8 -- -- -- -- 8.5 -- -- 8.7 CO2 mmol/L -- 22 -- -- -- -- 22 -- -- 22 BUN mg/dL -- 65* -- -- -- -- 76* -- -- 81* CREATININE mg/dL -- 1.86* -- -- -- -- 2.35* -- -- 2.67* BEDSIDE GLUCOSE mg/dL 100* -- 211* 185* -- 144* -- < > -- -- GLUCOSE mg/dL -- 99 -- -- -- -- 82 -- -- 118* < > = values in this interval not displayed. Results from last 7 days Lab Units 11/08/24 1321 APTT sec 33 Results from last 7 days Lab Units 11/10/24 0528 11/09/24 0612 11/08/24 1320 ALT U/L 15 18 14 AST U/L 19 22 26 ALK PHOS U/L 78 85 84 Pathology/Cytology Results No results found for the last 168 hours. Microbiology Results Procedure Component Value Units Date/Time Blood culture [[id number]] Collected: 11/08/241452 Specimen: Blood, Venous Updated: 11/09/242300 CULTURE RESULTS NO GROWTH 1 DAY Narrative: Suboptimal volume of blood collected, Results may be affected. Blood culture [[id number]] Collected: 11/08/24 145 Specimen: Blood, Venous Updated: 11/09/24 230 CULTURE RESULTS NO GROWTH 1 DAY Wound culture [[id number]] (Abnormal) Collected: 11/08/24 1432 Specimen: Swab from Heel, Right Updated: 11/10/24 0829 CULTURE RESULTS Culture in progress GRAM STAIN 10 to 24 White Blood Cells/LPF 0 to 1 Squamous Epithelial Cells/LPF Many Gram negative coccobacilli Wound culture [[id number]] (Abnormal) Collected: 11/08/24 1432 Specimen: Swab from Heel, Left Updated: 11/10/24 0830 CULTURE RESULTS Culture in progress GRAM STAIN 10 to 24 White Blood Cells/LPF 0 to 1 Squamous Epithelial Cells/LPF Moderate Gram negative coccobacilli Imaging: X-ray foot right minimum 3 views Result Date: 11/08/2024 XR FOOT RT MIN 3 VWS 11/08/2024 1:36 PM INDICATION: Foot wounds, rule out osteo COMPARISON: Right foot 04/10/2023 TECHNIQUE: 3 views of the right foot were obtained Impression: 1. Diffusely decreased bony mineralization limits evaluation for osteomyelitis. No focal erosive or destructive changes identified in the foot. 2. Plantar calcaneal and Achilles enthesophytes. 3. Circumferential soft tissue swelling in the ankle. Extensive vascular calcifications. Finalized by Randolph Ramirez MD on 11/08/2024 1:57 PM X-ray foot left minimum 3 views Result Date: 11/08/2024 XR FOOT LT MIN 3 VWS 11/08/2024 1:35 PM INDICATION: Wounds on foot, rule out osteo COMPARISON: None TECHNIQUE: 3 views of the left foot were obtained IMPRESSION: 1. Decreased bony mineralization in the foot limits evaluation for osteomyelitis. No definite focal erosive or destructive changes in the foot. 2. Extensive vascular calcifications. Circumferential soft tissue swelling in the ankle. Finalized by Randolph Ramirez MD on 11/08/2024 1:44 PM Assessment/Plan/Education: Principal Problem: Pressure injury of right heel, unstageable [facility] Active Problems: Lymphedema Diabetes mellitus type I ([facility]) Hyperkalemia Hypothyroid PVD (peripheral vascular disease) Hyponatremia Venous stasis ulcer of right lower leg with edema of right lower leg ([facility]) Venous stasis ulcer of left lower leg with edema of left lower leg ([facility]) Dressing/Skin Care/Edema Management/Offloading: - wash all wounds daily mild soap and water Right heel pressure ulcer Cover with medihoney Cover with Xeroform Pad and protect with ABD pad Secure with roll gauze Secure with FAHAD wrap Right medial leg wound Cover with Xeroform Secure with Roll gauze Secure with FAHAD wrap Left posterior leg wound Cover with Xeroform Secure with roll gauze - turn and reposition minimally every 2 hours - pad and protect bony prominences - moisturize dry skin, do not massage vigorously - elevate bilateral lower extremities and float heels - elevate upper extremities on pillows, do not allow heels to touch surface, free float heels Antibiotics: As prescribed per medical Studies: reviewed Medical Management: per primary team Wound care will not continue to follow while inpatient. Bedside nurse team to perform wound care as ordered. Orders placed for discharge. Patient may discharge from wound care perspective. Follow up: Referral placed for the outpatient wound care clinic at [facility] within 1-2 weeks of discharge. Thank you for allowing us to participate in the care of this patient. Please feel free to call us with any questions or concerns. - JAM MEEHAN 11/10/24 11:10 AM JAM MEEHAN [facility] M-F 8a-3p Secure Chat preferred & fastest response time Needs outside these hours please contact the reciprocating department: general surgery, vascular surgery, ortho or podiatry. Thank you! JAM Meehan 11/10/24 1111 documented in this encounter [facility] 11-10-2024 History of Present illness Narrative Received a call from [facility] acute care nurse, Cherelle Isbell RN, requesting inpatient consult from Dr. Moody for thrombocytopenia. Message to Dr. Moody and was notified that she is off today. Updated floor and offered our oracle database consultant number. They feel patient will be OK today, but asked if consult could be done tomorrow? New message to Dr. Moody to see if she can consult tomorrow when she is in office. documented in this encounter [facility] 11-09-2024 History and physical note Images from the original note were not included. [facility] INTERNAL [facility]IC[facility] [address] [place] [id number] Hospital Medicine History & Physical Patient: Rupa Gutierrez Date of : 1940 Room: [facility]/ PCP: ANGELINE BRIDGES MD Admission date: 11/08/2024 12:30 PM Encounter date: 11/09/24 Hospital Day: 2 SUBJECTIVE Rupa Gutierrez is a 83 y.o. female who presents with bilateral lower leg pain. Patient has recently been undergoing antibiotic treatment for bilateral lower leg cellulitis. Patient was recently discharged from the hospital on Keflex. Has a history of lymphedema, diabetes, congestive heart failure, hypertension, hypothyroidism. WBC 13.1, hemoglobin 10.1, sodium 132, potassium 5.5, creatinine 2.67, BUN 81, magnesium 2.9, CRP 16.6, procalcitonin 0.27. X-ray of the left foot revealed: Decreased bony mineralization in the foot limits evaluation for osteomyelitis. No definite focal erosive or destructive changes in the foot. Extensive vascular calcifications. Circumferential soft tissue swelling in the ankle. Xray right foot revealed- Diffusely decreased bony mineralization limits evaluation for osteomyelitis. No focal erosive or destructive changes identified in the foot.Plantar calcaneal and Achilles enthesophytes.Circumferential soft tissue swelling in the ankle. Extensive vascular calcifications. Admitted for suspected cellulitis/osteomyelitis and /JANNIE on CKD. Allergies: Lisinopril, Diatrizoate meglumine, Iodine, Levofloxacin in d5w, and Propoxyphene Prior to Admission medications Medication Sig Start Date End Date Taking? Authorizing Provider furosemide (LASIX) 20 mg tablet Take 2 tablets (40 mg total) by mouth daily with breakfast AND 1 tablet (20 mg total) Daily before evening meal. 40 mg in am and 20 mg in pm. 07/31/24 Yes JAM Mckeon insulin aspart U-100 (NovoLOG) 100 unit/mL injection Inject under the skin in the morning and at noon and in the evening. Inject before meals. As directed per sliding scale. Yes Not In System Ref Prov insulin detemir (LEVEMIR FLEXPEN SUBQ) Inject 60 Units under the skin in the morning. Yes Not In System Ref Prov levothyroxine (SYNTHROID, LEVOTHROID) 25 MCG tablet Take 1 tablet (25 mcg total) by mouth nightly. Yes Not In System Ref Prov losartan (COZAAR) 100 mg tablet take 1 tablet by mouth in the morning 03/11/24 Yes JAM Mckeon magnesium oxide (MAGOX) 400 mg tablet Take 1 tablet (400 mg total) by mouth in the morning. 02/14/24 Yes JAM Mckeon pantoprazole (PROTONIX) 40 mg EC tablet Take 1 tablet (40 mg total) by mouth in the morning. Yes Not In System Ref Prov zolpidem (AMBIEN) 10 mg tablet Take 1 tablet (10 mg total) by mouth nightly as needed for sleep. Yes Not In System Ref Prov acetaminophen-codeine (TYLENOL #3) 300-30 mg per tablet Take 1 tablet by mouth every 4 (four) hours as needed for pain. Not In System Ref Prov LORazepam (ATIVAN) 0.5 mg tablet Take 1 tablet (0.5 mg total) by mouth daily as needed. Not In System Ref Prov Code Status: Full Code Past Medical History: Patient has a past medical history of Anxiety, C. difficile diarrhea, CHF (congestive heart failure) [place] disease, Diabetes mellitus type I [place] Hypertension, Hypothyroid, Insomnia, Kidney stone, Neuropathy, Obesity, Osteoarthritis, Paroxysmal supraventricular tachycardia, Peripheral neuropathy, Plantar fasciitis, Pulmonary HTN [place] PVD (peripheral vascular disease), Visual impairment, and White coat syndrome with diagnosis of hypertension. Past Surgical History: Patient has a past surgical history that includes Discectomy; section; Appendectomy (1951); Neck surgery; Tonsillectomy; Dilation and curettage of uterus; and Eye surgery. Family History: Patient's family history includes Cancer in her mother; Heart disease in her father; Ovarian cancer in her mother. Social History: Patient reports that she has quit smoking. She has never used smokeless tobacco. She reports that she does not drink alcohol and does not use drugs. Review of Systems Constitutional: Negative for chills and fever. HENT: Negative for ear pain and sore throat. Eyes: Negative for pain and visual disturbance. Respiratory: Negative for cough and shortness of breath. Cardiovascular: Negative for chest pain and palpitations. Gastrointestinal: Negative for abdominal pain and vomiting. Genitourinary: Negative for dysuria and hematuria. Musculoskeletal: Positive for arthralgias. Negative for back pain. Skin: Negative for color change and rash. Neurological: Positive for numbness (neuropathy to ble). Negative for seizures and syncope. All other systems reviewed and are negative. OBJECTIVE BP 142/69 Pulse 109 Temp 36.4 C (97.5 F) (Oral) Resp 18 Ht 149.9 cm (4' 11 ) Wt 105.6 kg (232 lb 14.4 oz) SpO2 98% BMI 47.04 kg/m Temp: [36.4 C (97.5 F)-36.7 C (98 F)] 36.4 C (97.5 F) Pulse: [82-109] 109 Resp: [17-20] 18 BP: (121-158)/(48-83) 142/69 SpO2: [92 %-100 %] 98 % O2 Device: None (Room air) Intake/Output Summary (Last 24 hours) at 11/09/2024 0913 Last data filed at 11/08/2024 2237 Gross per 24 hour Intake 300.79 ml Output 3 ml Net 297.79 ml Physical Exam Vitals and nursing note reviewed. Constitutional: Appearance: She is well-developed. She is obese. HENT: Head: Normocephalic and atraumatic. Nose: Nose normal. Eyes: Pupils: Pupils are equal, round, and reactive to light. Cardiovascular: Rate and Rhythm: Normal rate and regular rhythm. Heart sounds: Normal heart sounds. No murmur heard. Pulmonary: Effort: Pulmonary effort is normal. No respiratory distress. Breath sounds: Normal breath sounds. No wheezing. Abdominal: General: Bowel sounds are normal. Palpations: Abdomen is soft. Tenderness: There is no abdominal tenderness. Musculoskeletal: General: Normal range of motion. Cervical back: Neck supple. Lymphadenopathy: Cervical: No cervical adenopathy. Skin: General: Skin is warm and dry. Findings: No rash. Comments: Wounds to BLE Neurological: Mental Status: She is alert and oriented to person, place, and time. Cranial Nerves: No cranial nerve deficit. Motor: Weakness present. Medications Scheduled: cefTRIAXone (ROCEPHIN) IV, 2,000 mg, intravenous, Q24H heparin (porcine), 5,000 Units, subcutaneous, Q8H MARLENE insulin glargine, 60 Units, subcutaneous, Daily insulin lispro, 2-10 Units, subcutaneous, With meals and nightly levothyroxine, 25 mcg, oral, Daily pantoprazole, 40 mg, oral, QAM AC sodium chloride, 3 mL, intravenous, Q12H MARLENE vancomycin, , intravenous, Dosed by Levels Infusions: dextrose 5 % in water, 100 mL/hr sodium chloride 0.9 %, 20 mL/hr As Needed: acetaminophen dextrose dextrose 5 % in water dextrose 50 % in water (D50W) glucagon (human recombinant) HYDROcodone-acetaminophen LORazepam magnesium sulfate magnesium sulfate ondansetron sodium chloride sodium chloride sodium chloride 0.9 % zolpidem Allergies: Lisinopril, Diatrizoate meglumine, Iodine, Levofloxacin in d5w, and Propoxyphene Labs Recent Results (from the past 24 hours) CBC auto differential Collection Time: 11/08/24 1:20 PM Result Value Ref Range WBC 13.1 (H) 4 - 11 x10E9/L RBC Count 3.34 (L) 3.8 - 5.2 X10E12/L Hemoglobin 10.1 (L) 11.7 - 15.5 g/dL Hematocrit 30.1 (L) 35 - 47 % MCV 90 80 - 100 fL MCH 30.3 27 - 34 pg MCHC 33.6 32 - 36 g/dL RDW 13.5 11.5 - 15 % Platelet Count 204 150 - 450 X10E9/L MPV 7.3 7 - 12 fL Neutrophils Relatives 75 % Lymphocytes Relative 11 % Monocytes Relative 12 % Eosinophils Relative 2 % Atypical Lymphocytes Relative 1 % Neutrophils Absolute (M) 9.8 (H) 1.5 - 6.6 10*3/uL Lymphocytes Absolute 1.5 1.0 - 3.5 10*3/uL Monocytes Absolute 1.5 (H) 0.0 - 0.9 10*3/uL Eosinophils Absolute 0.2 0.0 - 0.4 10*3/uL Differential Type CELLAVISION DIFFERENTIAL Comprehensive metabolic panel Collection Time: 11/08/24 1:20 PM Result Value Ref Range SODIUM 132 (L) 134 - 146 mmol/L POTASSIUM 5.5 (H) 3.5 - 5.0 mmol/L CHLORIDE 101 98 - 109 mmol/L CARBON DIOXIDE 22 22 - 32 mmol/L ANION GAP 9 5 - 15 mmol/L BLOOD UREA NITROGEN 81 (H) 5 - 27 mg/dL CREATININE 2.67 (H) 0.40 - 1.00 mg/dL GLUCOSE 118 (H) 65 - 99 mg/dL CALCIUM 8.7 8.5 - 10.5 mg/dL TOTAL PROTEIN 7.2 6.0 - 8.0 g/dL ALBUMIN 3.3 3.2 - 5.3 g/dL ALKALINE PHOSPHATASE 84 39 - 130 U/L AST 26 <=41 U/L ALT 14 <=31 U/L BILIRUBIN,TOTAL 0.6 0.3 - 1.2 mg/dL EGFR Non-Race Dependent 17 (L) >=60 ml/min/1.73sq.m Erythrocyte Sedimentation Rate (ESR) Collection Time: 11/08/24 1:20 PM Result Value Ref Range ESR, Erythrocyte Sedimentation Rate 89 (H) 0 - 30 mm/h Magnesium Collection Time: 11/08/24 1:20 PM Result Value Ref Range MAGNESIUM 2.9 (H) 1.8 - 2.6 mg/dL Lactate w/ Reflex Collection Time: 11/08/24 1:20 PM Result Value Ref Range LACTATE W/REFLEX 0.9 0.4 - 2.0 mmol/L Narrative Result did not trigger repeat Lactate, re-order if needed. C-reactive protein Collection Time: 11/08/24 1:20 PM Result Value Ref Range C REACTIVE PROTEIN 16.6 (H) <=0.7 mg/dL Procalcitonin Collection Time: 11/08/24 1:20 PM Result Value Ref Range PROCALCITONIN 0.27 (H) <0.05 ng/mL Narrative <0.50 ng/mL - Low risk of severe sepsis and/or septic shock. <2.00 ng/mL - Recommend retesting within 6-24 hours. >2.00 ng/mL - High risk of sepsis and/or septic shock. B-type natriuretic peptide Collection Time: 11/08/24 1:20 PM Result Value Ref Range BNP 57 <=100 pg/mL Extra Tubes Collection Time: 11/08/24 1:21 PM Narrative The following orders were created for panel order Extra Tubes. Procedure Abnormality Status --------- ------ Light Blue Top[[id number]] Final result Please view results for these tests on the individual orders. Light Blue Top Collection Time: 11/08/24 1:21 PM Result Value Ref Range Extra Tube Auto Resulted APTT Collection Time: 11/08/24 1:21 PM Result Value Ref Range APTT 33 26 - 37 sec Wound culture Collection Time: 11/08/24 2:32 PM Specimen: Heel, Right; Swab Result Value Ref Range GRAM STAIN 10 to 24 White Blood Cells/LPF (A) GRAM STAIN 0 to 1 Squamous Epithelial Cells/LPF (A) GRAM STAIN Many Gram negative coccobacilli (A) Wound culture Collection Time: 11/08/24 2:32 PM Specimen: Heel, Left; Swab Result Value Ref Range GRAM STAIN 10 to 24 White Blood Cells/LPF (A) GRAM STAIN 0 to 1 Squamous Epithelial Cells/LPF (A) GRAM STAIN Moderate Gram negative coccobacilli (A) Potassium Collection Time: 11/08/24 4:22 PM Result Value Ref Range POTASSIUM 5.3 (H) 3.5 - 5.0 mmol/L Bedside Glucose *Place/Obtain serum glucose if >500 per glucometer. Collection Time: 11/08/24 5:55 PM Result Value Ref Range Bedside Glucose (POC) 116 (H) 65 - 99 mg/dL Lactate w/ Reflex Collection Time: 11/08/24 6:08 PM Result Value Ref Range LACTATE W/REFLEX 1.2 0.4 - 2.0 mmol/L Narrative Result did not trigger repeat Lactate, re-order if needed. Extra Tubes Collection Time: 11/08/24 6:10 PM Narrative The following orders were created for panel order Extra Tubes. Procedure Abnormality Status --------- ------ PST TOP[[id number]] Final result Please view results for these tests on the individual orders. PST TOP Collection Time: 11/08/24 6:10 PM Result Value Ref Range Extra Tube Auto Resulted Bedside Glucose *Place/Obtain serum glucose if >500 per glucometer. Collection Time: 11/08/24 9:25 PM Result Value Ref Range Bedside Glucose (POC) 156 (H) 65 - 99 mg/dL Lactate w/ Reflex Collection Time: 11/09/24 12:08 AM Result Value Ref Range LACTATE W/REFLEX 1.1 0.4 - 2.0 mmol/L Narrative Result did not trigger repeat Lactate, re-order if needed. Comprehensive metabolic panel Collection Time: 11/09/24 6:12 AM Result Value Ref Range SODIUM 135 134 - 146 mmol/L POTASSIUM 5.3 (H) 3.5 - 5.0 mmol/L CHLORIDE 106 98 - 109 mmol/L CARBON DIOXIDE 22 22 - 32 mmol/L ANION GAP 7 5 - 15 mmol/L BLOOD UREA NITROGEN 76 (H) 5 - 27 mg/dL CREATININE 2.35 (H) 0.40 - 1.00 mg/dL GLUCOSE 82 65 - 99 mg/dL CALCIUM 8.5 8.5 - 10.5 mg/dL TOTAL PROTEIN 7.7 6.0 - 8.0 g/dL ALBUMIN 3.3 3.2 - 5.3 g/dL ALKALINE PHOSPHATASE 85 39 - 130 U/L AST 22 <=41 U/L ALT 18 <=31 U/L BILIRUBIN,TOTAL 0.6 0.3 - 1.2 mg/dL EGFR Non-Race Dependent 20 (L) >=60 ml/min/1.73sq.m Magnesium Collection Time: 11/09/24 6:12 AM Result Value Ref Range MAGNESIUM 2.9 (H) 1.8 - 2.6 mg/dL C-reactive protein Collection Time: 11/09/24 6:12 AM Result Value Ref Range C REACTIVE PROTEIN 17.6 (H) <=0.7 mg/dL Lactate w/ Reflex Collection Time: 11/09/24 6:12 AM Result Value Ref Range LACTATE W/REFLEX 0.9 0.4 - 2.0 mmol/L Narrative Result did not trigger repeat Lactate, re-order if needed. Extra Tubes Collection Time: 11/09/24 6:13 AM Narrative The following orders were created for panel order Extra Tubes. Procedure Abnormality Status --------- ------ Light Blue Top[[id number]] Final result Please view results for these tests on the individual orders. Light Blue Top Collection Time: 11/09/24 6:13 AM Result Value Ref Range Extra Tube Auto Resulted CBC auto differential Collection Time: 11/09/24 6:33 AM Result Value Ref Range WBC 11.2 (H) 4 - 11 x10E9/L RBC Count 3.33 (L) 3.8 - 5.2 X10E12/L Hemoglobin 10.0 (L) 11.7 - 15.5 g/dL Hematocrit 30.0 (L) 35 - 47 % MCV 90 80 - 100 fL MCH 30.1 27 - 34 pg MCHC 33.4 32 - 36 g/dL RDW 13.7 11.5 - 15 % Platelet Count 27 (LL) 150 - 450 X10E9/L MPV 8.3 7 - 12 fL Neutrophils Relative 75.7 % Lymphocytes Relative 6.5 % Monocytes Relative 14.0 % Eosinophils Relative 3.0 % Basophils Relative 0.8 % Neutrophils Absolute (A) 8.5 (H) 1.5 - 6.6 10*3/uL Lymphocytes Absolute 0.7 (L) 1.0 - 3.5 10*3/uL Monocytes Absolute 1.6 (H) 0.0 - 0.9 10*3/uL Eosinophils Absolute 0.3 0.0 - 0.4 10*3/uL Basophils Absolute 0.1 0.0 - 0.2 10*3/uL Differential Type AUTOMATED DIFFERENTIAL Radiology X-ray foot right minimum 3 views Result Date: 11/08/2024 Narrative: XR FOOT RT MIN 3 VWS 11/08/2024 1:36 PM INDICATION: Foot wounds, rule out osteo COMPARISON: Right foot 04/10/2023 TECHNIQUE: 3 views of the right foot were obtained Impression: 1. Diffusely decreased bony mineralization limits evaluation for osteomyelitis. No focal erosive or destructive changes identified in the foot. 2. Plantar calcaneal and Achilles enthesophytes. 3. Circumferential soft tissue swelling in the ankle. Extensive vascular calcifications. Finalized by Randolph Ramirez MD on 11/08/2024 1:57 PM X-ray foot left minimum 3 views Result Date: 11/08/2024 Narrative: XR FOOT LT MIN 3 VWS 11/08/2024 1:35 PM INDICATION: Wounds on foot, rule out osteo COMPARISON: None TECHNIQUE: 3 views of the left foot were obtained IMPRESSION: 1. Decreased bony mineralization in the foot limits evaluation for osteomyelitis. No definite focal erosive or destructive changes in the foot. 2. Extensive vascular calcifications. Circumferential soft tissue swelling in the ankle. Finalized by Randolph Ramirez MD on 11/08/2024 1:44 PM X-ray wrist right minimum 3 views Result Date: 10/21/2024 Narrative: XR WRIST 3+ VIEWS RIGHT 10/19/2024 2:08 PM CLINICAL INDICATIONS: Pain. COMPARISON: None Impression: FINDINGS/IMPRESSION: Distal radius fracture with apex medial and palmar angulation, slight impaction, slight dorsal displacement of the major fracture fragment. Resultant possible ovarian cyst. Soft tissue swelling about the wrist. Vascular calcific dictation. Osteopenia. Moderate first CMC osteoarthrosis. Electronically signed: Kaushik Mcgee MD. X-ray forearm right 2 views Result Date: 10/21/2024 Narrative: XR FOREARM 2 VIEWS RIGHT 10/19/2024 2:08 PM CLINICAL INDICATIONS: Wrist pain, injury. COMPARISON: None Impression: FINDINGS/IMPRESSION: Distal radius fracture, wrist radiographs dictated centrally. No acute fracture or dislocation of the radius or ulnar diaphyses. Vascular calcifications. Osteopenia. Well-corticated osseous excrescence about the lateral distal humeral epicondyle, presumably related to tendinopathy. Olecranon enthesophyte. Electronically signed: Kaushik Mcgee MD. HOSPITAL PROBLEM LIST Principal Problem: Lymphedema Active Problems: Essential hypertension Diabetes mellitus type I ([facility]) Hyperkalemia Hypothyroid PVD (peripheral vascular disease) Hyponatremia ASSESSMENT & PLAN Cellulitis lower extremity Lymphedema Rocephin 2 g daily Pharmacy to dose vanco. Wound care daily WBC 13.1>>11.2 CRP 17.6 Wound culture- positive for moderate gram negative coccobacilli Blood culture in process Lactate 0.9 MRI bilateral lower leg and feet ordered JANNIE on CKD Monitor kidney function daily Avoid nephrotoxic agents Nephrology following Daily weight and I/O Thrombocytopenia Platelets 27 today- per RN this was second draw. No signs of bleeding, will recheck this afternoon Hgb stable D/c heparin Essential Hypertension Normotensive Hold losartan Dm type 1 Continue home Lantus Monitor blood glucose a.c. and HS cover sliding scale insulin Hyperkalemia 5.5 on admission, 5.3 today Nephrology following Lokelma given, recheck this afternoon Start loop diuretic tomorrow per nephrology Low potassium diet Hypothyroidism Continue home Synthroid Clinical concern for sepsis, yes-with organ failure including, acute kidney injury as evidenced by creatinine elevated. Presumed source; skin and soft tissue infection. Testing obtained; blood cultures x2, lactate, and procalcitonin. Fluid resuscitation; no fluid resuscitation was given due to patient is not volume or fluid responsive as evidenced by the following invasive parameters cardiac output. Antibiotics; Vancomycin. Vasopressors; not required. Chart reviewed. Admission orders placed. Home medications reconciled. DVT/VTE prophylaxis: SCD and heparin SQ. GI prophylaxis: add pantoprazole. PT/OT to evaluate and treat. DC planning: TBD. JAM Dunlap 11/09/2024 9:13 AM [facility] 7AM-7PM & 7PM-7AM: EpicChat or page through On-Call [employer]. JAM Dunlap 11/09/24 [id number] JAM Dunlap 11/09/24 1074 Steven Alcantara MD, personally performed the face to face diagnostic evaluation on this patient. I have reviewed the CYNTHIA's History, Exam, and MDM and agree with the assessment and plan as written. I have reviewed all laboratory findings and imaging reports/films. Thrombocytopenia- concern for HIT Check PF4 antibodies Peripheral smear, folate , vit b12 Watch for bleeding Dr Steven Mercado MD, MRCP 11/09/2024 4:46 PM documented in this encounter [facility] 11-08-2024 Emergency department Note Images from the original note were not included. [facility] - EMERGENCY Pt Name: Rupa Gutierrez Birthdate: 1940 Chief Complaint: Chief Complaint Patient presents with Leg Pain History of Present Illness: Initial evaluation performed at 12:[address] Kirby. Patient is a 83 y.o. female who presents to the ED for evaluation of bilateral lower leg pain. Pt states she is at [place] for antibiotic treatment for bilateral lower leg cellulitis. Pt states she was admitted on 10/23/2024 for the cellulitis and was prescribed Keflex. Pt denies a fever. Pt states she is diabetic. Pt has history of lymphedema. History provided by: Patient pallet stone inserter used: No Past Medical History: Past Medical History: Diagnosis Date Anxiety C. difficile diarrhea CHF (congestive heart failure) [place] Dental disease Diabetes mellitus type I ([facility]) Hypertension Hypothyroid Insomnia Kidney stone stage 3 Neuropathy Obesity Osteoarthritis Paroxysmal supraventricular tachycardia Peripheral neuropathy Plantar fasciitis Pulmonary HTN ([facility] PVD (peripheral vascular disease) Visual impairment White coat syndrome with diagnosis of hypertension Past Surgical History: Past Surgical History: Procedure Laterality Date APPENDECTOMY 1951 SECTION x2 DILATION AND CURETTAGE OF UTERUS DISCECTOMY EYE SURGERY NECK SURGERY TONSILLECTOMY Family History: Family History Problem Relation Age of Onset Cancer Mother Ovarian cancer Mother Heart disease Father Social History: Social History Socioeconomic History Marital status: Tobacco Use Smoking status: Former Smokeless tobacco: Never Vaping Use Vaping status: Never Used Substance and Sexual Activity Alcohol use: Never Drug use: Never Sexual activity: Defer Other Topics Concern Caffeine Use Yes Comment: coffee Social Drivers of Health Food Insecurity: No Food Insecurity (11/10/2024) Hunger Screening Food Insecurity - Worry: Never True Food Insecurity - Inability: Never True Transportation Needs: No Transportation Needs (11/08/2024) PRAPARE - Transportation Lack of Transportation (Medical): No Lack of Transportation (Non-Medical): No Interpersonal Safety: Not At Risk (11/08/2024) Humiliation, Afraid, Rape, and Kick questionnaire Fear of Current or Ex-Partner: No Emotionally Abused: No Physically Abused: No Sexually Abused: No Housing Instability: Low Risk (11/08/2024) Housing Instability Housing Instability: No Review of Systems: Review of Systems Physical Exam: ED Triage Vitals [11/08/24 1239] Temp Heart Rate Resp BP SpO2 36.7 C (98 F) 96 18 137/57 99 % Temp Source Heart Rate Source Patient Position BP Location FiO2 (%) Oral Pulse Ox -- -- -- Vitals: 11/11/24 1900 11/11/24 2300 11/12/24 0532 11/12/24 0754 BP: 132/56 156/76 134/58 Temp: 36.9 C (98.4 F) 37.1 C (98.8 F) 36.7 C (98.1 F) TempSrc: Oral Oral Oral Pulse: 86 99 97 Resp: 18 18 SpO2: 98% 98% MAP (mmHg): 77 100 80 Height: Weight: 103.4 kg (228 lb) 99 Physical Exam Vitals reviewed. HENT: Head: Normocephalic and atraumatic. Eyes: Conjunctiva/sclera: Conjunctivae normal. Cardiovascular: Rate and Rhythm: Normal rate. Pulses: Dorsalis pedis pulses are 1+ on the right side and 1+ on the left side. Posterior tibial pulses are 1+ on the right side and 1+ on the left side. Pulmonary: Effort: Pulmonary effort is normal. Breath sounds: Normal breath sounds. Abdominal: General: There is no distension. Palpations: Abdomen is soft. Musculoskeletal: General: Normal range of motion. Cervical back: Normal range of motion and neck supple. Comments: Chronic lymphedema in both lower extremities. Green residue on the dressings that may be from the ointment that they had been using. Feet: Right foot: Skin integrity: Ulcer (stage 1 pressure ulcer to posterior right ankle. Pressure ulcer on heel that is 3 cm in diameter.) present. Left foot: Skin integrity: Ulcer (stage 1 pressure ulcer to left posterior ankle without surrounding erythema.) present. Comments: Toes on the right foot are more deep red than those on the left foot. Skin: General: Skin is warm and dry. Neurological: General: No focal deficit present. Mental Status: She is alert and oriented to person, place, and time. GCS: GCS eye subscore is 4. GCS verbal subscore is 5. GCS motor subscore is 6. Procedure: Procedures Re-evaluation: IMireya (scribe), documented on behalf and in the presence of Dr. Rach Kirby. Medical Decision Making The pt is a 83 y.o. female with a hx of lymphedema here for bilateral foot pain and swelling. Exam is significant for no obvious infection but chronic wounds and lymphedema. Ddx includes but is not limited to: lymphedema, heart failure, acute kidney injury, osteomyelitis Amount and/or Complexity of Data Reviewed Labs: ordered. Decision-making details documented in ED Course. Radiology: ordered and independent interpretation performed. Decision-making details documented in ED Course. Discussion of management or test interpretation with external provider(s): 3:[address] Kirby spoke with Dr. Nagy from Nephrology, who reviewed case. At this time, Dr. Nagy recommended to repeat labs and admit here. No need for emergent dialysis. 3:[address] Kirby spoke with Miguel Mendoza, who reviewed case and is agreeable to admit the patient for further care and evaluation under Dr. Funez. ED Course: ED Course as of 11/12/24 1425 Sun November 08, 2024 1236 I reviewed the patient's records: Patient was admitted from 10/23/2024 until 10/27/2024 for lymphedema, type 1 diabetes mellitus, and possible overlying cellulitis. Was having some weeping from the right leg at that time. Potassium was slightly elevated, creatinine was also slightly elevated over the patient's baseline. Was discharged on Keflex after her creatinine had returned to her baseline. [DW] 1352 Metabolic panel shows mild hyperkalemia, JANNIE on CKD, otherwise unremarkable. CBC shows mild leukocytosis, mild anemia, otherwise unremarkable [DW] 1427 Inflammatory markers are slightly elevated today. X-rays were inconclusive regarding osteomyelitis. Physical exam was fairly reassuring. Discussed with the hospitalist Miguel Douglas. Recommended trending inflammatory markers and obtaining MRIs. If I were to treat her for osteomyelitis, that would likely include vancomycin, but that would not be jhaveri in light of her failing kidney function at this point. Reaching out to Nephrology to see if this patient will need dialysis given her JANNIE on CKD with accompanying hyperkalemia. If she does not need dialysis, will also need their recommendations for diuresis and fluid balance. [DW] ED Course User Index [DW] Dylan Kirby DO Clinical Impressions as of 11/12/24 1425 Lymphedema Acute kidney injury superimposed on CKD Multiple open wounds of foot Hyperkalemia . ED Disposition ED Disposition Admit Date/Time Sun November 08, 2024 3:34 PM Comment At this time, the patient has objective evidence of an acute process that will likely require hospitalization for greater than 2 midnights. The patient will be admitted. Medications Prescribed this Visit This print group is not available in inpatient encounters. Please contact a systems analysis manager. . Please note that portions of this note were completed with a voice recognition program. Efforts were made to edit the dictations but occasionally words are mis-transcribed. Mireya Thomas 11/08/24 1303 Mireya Thomas 11/08/24 1320 Mireya Thomas 11/08/24 1353 Mireya Thomas 11/08/24 1534 Mireya Thomas 11/08/24 1543 Dylan Kirby DO 11/12/24 1425 Pt presents to ED via EMS with c/o bilateral lower leg pain and back pain. Pt is at [place] for antibiotic treatment for bilateral lower leg cellulitis. Pt reporting pain and requested to be evaluated at the ED. Pt jignesh agreed. Pt with hx of neuopathy and DMII. Pt confused at baseline and acting appropriate documented in this encounter [facility] 10-19-2024 Note HPI Reported by patient. Hand Dominance: right Location: right distal radius fracture sustained 7 + weeks ago, treated non operative fashion by Dr. Lerma at [facility], referred to Dr. Ortiz. Quality: ache Severity: mild-moderate Alleviating Factors: nothing Aggravating Factors: ROM , activity Associated Symptoms: no weakness; no numbness; no tingling; mild swelling; no redness; no warmth; no ecchymosis; no catching/locking; no popping/clicking Previous Surgery: surgical procedure:none Prior Imaging: x ray ROS Patient reports arthralgias/joint pain . reports no fever and no chills. reports no chest pain. reports no numbness and no weakness. Physical Exam Patient is a 83 yo female Constitutional: General Appearance: NAD and comfort comfortable. Psychiatric: Orientation: oriented to time, place, and person. Mood and Affect: normal affect and mood and active and alert. Gait and Station: Appearance:wheelchair Cardiovascular System: Extremities warm and well perfused Lymph Nodes: Mood and Affect: mood and affect normal. Skin: Intact Neurologic: Sensation: grossly intact. Head: Head: normocephalic and atraumatic. Neck: Neck: trachea midline. Lungs: Respiratory effort: no dyspnea. Hand/Wrist Musculoskeletal Exam Inspection Right Erythema: none Ecchymosis: none Edema: none Deformity: moderate Palpation Right Wrist tenderness to palpation: radial carpal joint General Constitutional: appears stated age Scleral icterus: no Labored breathing: no Psychiatric: normal mood and affect Neurological: alert and oriented x3 Skin: intact Xrays Displaced comminuted distal radius fracture subacute Noted on today's films Plan Dr. Ortiz was present and provided plan of care. At this stage 7+ weeks after injury recommendation is splint ROM fingers and elbow Follow up in 6 weeks with repeat films, consider surgical intervention at that time. [facility] 10-14-2024 Miscellaneous Notes Industrial Ecology Technician returned call to Rosmery with Rukhsana after message left on nurse line. Rosmery requested verification of dressing change frequency. Industrial Ecology Technician informed Rosmery of daily dressing change frequency. Rosmery verbalized understanding. documented in this encounter [facility] 10-14-2024 Telephone encounter Note Industrial Ecology Technician returned call to Rosmery with Rukhsana after message left on nurse line. Rosmery requested verification of dressing change frequency. Industrial Ecology Technician informed Rosmery of daily dressing change frequency. Rosmery verbalized understanding. [facility] 10-13-2024 History of Present illness Narrative Pt. Arrives with no open areas noted. There are various fluid filled blisters noted to bilat legs.There are various areas weeping large amounts of clear, serous fluid. This is noted on right anterior leg and left posterior leg especially. Images from the original note were not included. Wound Care Progress Note Patient: Rupa Gutierrez Date of : 1940 Chief Complaint: Bilateral leg swelling New patient evaluation SUBJECTIVE/HPI: Rupa is a 83 y.o. female who presents to [facility] for evaluation of weeping of serous fluid on the bilateral lower extremities. Patient established with wound clinic on 10/13/2024. Current wound care includes: Presents with roll gauze to bilateral leg. Patient reports she sleeps in a chair. Patient does have in home physical therapy assisting with ambulation. Patient does have a wound on the tip of her right great toe. Patient states the toe wound is managed by podiatry.. Patient reports she has had chronic leg swelling for the last 2-3 years. Reports weeping of fluid in the last few weeks. Patient does have established home care who are applying what sounds like some type of compression wrap. Patient reports it is difficult to leave her home as she cannot pivot from chair to wheelchair. She requires the assistance of the local fire department to get her into her car. Patient unable to get out of the wheelchair for wound care assessment. Patient was given a erin lift sling for next appointment use. Instructed to put the sling on the wheelchair before getting into the wheelchair. Measurable wound changes: New wound evaluation Patient accompanied by: Daughter, patient arrives in wheelchair Nutritional screen shows patient does take in three servings of protein per day. Patient does deny fever, chills, sweats, or other signs of infection. Prescribed antibiotics: None Today's reported Blood Sugar:125 Lab Results Component Value Date HGBA1C 10.1 (H) 04/26/2021 HGBA1C 12.4 (H) 12/12/2018 Tobacco use: former smoker Contributing comorbid conditions: BMI 48.24, recent close fracture of right wrist. Labs/Imaging/Cardiovascular: Patient's chart was reviewed for all available supporting documentation, laboratory results and radiographic examination. Patient Active Problem List Diagnosis Abdominal pain Calculus of ureter BMI 45.0-49.9, adult [place] Morbid obesity [place] Mild tricuspid regurgitation Pulmonary hypertension ([facility] Essential hypertension Preop cardiovascular exam Lymphedema Past Medical History: Diagnosis Date Anxiety C. difficile diarrhea CHF (congestive heart failure) ([facility] Dental disease Diabetes mellitus type I ([facility] Hypertension Hypothyroid Insomnia Kidney stone stage 3 Neuropathy Obesity Osteoarthritis Paroxysmal supraventricular tachycardia Peripheral neuropathy Plantar fasciitis Pulmonary HTN ([facility] PVD (peripheral vascular disease) Visual impairment White coat syndrome with diagnosis of hypertension Past Surgical History: Procedure Laterality Date APPENDECTOMY 1951 SECTION x2 DILATION AND CURETTAGE OF UTERUS DISCECTOMY EYE SURGERY NECK SURGERY TONSILLECTOMY Current Outpatient Medications Medication Sig Dispense Refill acetaminophen-codeine (TYLENOL #3) 300-30 mg per tablet Take 1 tablet by mouth every 4 (four) hours as needed for pain. furosemide (LASIX) 20 mg tablet Take 2 tablets (40 mg total) by mouth daily with breakfast AND 1 tablet (20 mg total) Daily before evening meal. 40 mg in am and 20 mg in pm. 90 tablet 6 insulin aspart U-100 (NovoLOG) 100 unit/mL injection Inject under the skin in the morning and at noon and in the evening. Inject before meals. As directed per sliding scale. insulin detemir (LEVEMIR FLEXPEN SUBQ) Inject 60 Units under the skin in the morning. levothyroxine (SYNTHROID, LEVOTHROID) 25 MCG tablet Take 1 tablet (25 mcg total) by mouth nightly. LORazepam (ATIVAN) 0.5 mg tablet Take 1 tablet (0.5 mg total) by mouth daily as needed. losartan (COZAAR) 100 mg tablet take 1 tablet by mouth in the morning 90 tablet 3 magnesium oxide (MAGOX) 400 mg tablet Take 1 tablet (400 mg total) by mouth in the morning. 90 tablet 3 pantoprazole (PROTONIX) 40 mg EC tablet Take 1 tablet (40 mg total) by mouth in the morning. zolpidem (AMBIEN) 10 mg tablet Take 1 tablet (10 mg total) by mouth nightly as needed for sleep. No current facility-administered medications for this visit. Allergies Allergen Reactions Lisinopril Cough Diatrizoate Meglumine Rash Iodine Rash Levofloxacin In D5w Rash Propoxyphene Rash The following portions of the patient's history were reviewed and updated as appropriate: allergies, current medications, past family history, past medical history, past social history, past surgical history, problem list, and medication reconciliation was completed including current medication and post discharge medication. Pain Scale:denies Review of Systems Constitutional: Negative. Negative for activity change, appetite change and fever. HENT: Negative. Negative for trouble swallowing. Eyes: Positive for visual disturbance. Respiratory: Positive for shortness of breath. Negative for cough and wheezing. Cardiovascular: Positive for leg swelling. Negative for chest pain and palpitations. Gastrointestinal: Negative. Negative for abdominal distention, nausea and vomiting. Genitourinary: Positive for difficulty urinating. Negative for dysuria, frequency and urgency. Musculoskeletal: Positive for back pain and gait problem. Negative for neck stiffness. Skin: Positive for wound. Negative for color change. Neurological: Negative for numbness and headaches. Objective: Vitals: 10/13/24 1100 BP: 118/77 Pulse: 90 Resp: 18 Temp: 36.6 C (97.9 F) Physical Exam Vitals and nursing note reviewed. Constitutional: Appearance: She is well-developed. HENT: Head: Normocephalic and atraumatic. Cardiovascular: Rate and Rhythm: Normal rate. Rhythm irregular. Heart sounds: No murmur heard. No friction rub. Comments: Bilateral doppler signals weak, difficult to locate due to body habitus Bilateral lower extremity non compressible edema, feet relatively spared, weeping serous fluid + stemmers sign bilateral Pulmonary: Effort: No respiratory distress. Breath sounds: Normal breath sounds. Abdominal: General: Bowel sounds are normal. Palpations: Abdomen is soft. Musculoskeletal: General: Normal range of motion. Cervical back: Normal range of motion. Skin: General: Skin is warm and dry. Neurological: Mental Status: She is alert and oriented to person, place, and time. Assessment/Plan/Education: 1. Lymphedema 2. Lymphorrhea Avoid prolonged leg dependency. Wash legs and feet every day, apply moisturizing lotion at night, avoid lotion between the toes. Raise feet above the level of the heart 10-15 min several times daily. Follow a low sodium diet. Wear compression stockings as prescribed. Single layer Tubigrip Calf pump exercises daily. 1 week(s) of compression, elevation and exercise, chronic lymphedema remains (start date:10/13/2024). Legs are to be wash daily mild soap and water Cover with absorptive ABD pads Secure with roll gauze Apply single layer Tubigrip Discussed with patient the possibility of lymphedema pumps, written material given to patient, she will discuss at next appointment. Encourage patient to sleep in a bed Communication sent home care nurses Patient instructed in Other: Lymphedema care to left, right, and leg. Short term goal: medical compliance intermediate designer goal: wound closure Patient verbalize understanding of treatment regimen and the importance of adherence. Follow up in wound clinic in 1 week Instructed to contact wound clinic, PCP or ER should symptoms worsen. The patient was taught to watch for S/S of infection (redness, pus, pain, increased swelling, chills or fever) and to call the PCP or wound care clinic if such occurs. The patient was educated on offloading the area by avoiding direct pressure to the wound bed. Education as well as the pathophysiology of the disease process was provided on infection, edema, necrotic tissue and its relationship to nonhealing wounds. Education was also provided on treatment plan. Patient verbalized understanding. Total time spent was 25 minutes: Preparing to see the patient (e.g., review of tests) Obtaining and/or reviewing separately obtained history Performing a medically appropriate examination and/or evaluation Counseling and educating the patient/family/caregiver Ordering medications, tests, or procedures Referring and communicating with other health ambulatory care (not separately reported) Documenting clinical information in the electronic or other health record - CODIE MARCH APRN-OPTICAL COATING TECHNICIAN 10/13/24 12:34 PM Codie March APRN, OPTICAL COATING TECHNICIAN, CWS, COCN [facility]: [phone] JAM Meehan 10/13/24 [id number] documented in this encounter [facility] 10-13-2024 Instructions Lexy Martins RN - 10/13/2024 11:00 AM EDT [facility] HOME CARE Wound Management Treatment Plan Wound Location(s): Left and right legs HOW TO CARE FOR YOUR WOUND The following should be performed Daily and as needed. STEP 1: Cleanse wound with Soap and water, rinse well, and pat dry. STEP 2: Cover wound with ABD (Abdominal) dressing, then Rolled gauze STEP 3: Secure dressings with Tubi/Medigrip ACTIVITY: NUTRITION: High protein diet SKIN CARE: SWELLING CONTROL: Elevate legs whenever sitting to level of heart/hips or higher. ITEMS TO FOLLOW UP ON: Make appt. with your gig tender for the right great toe. Length Width Depth Wound drainage Type Description copious Serous serous documented in this encounter [facility] 09-11-2024 History of Present illness Narrative Rupa Gutierrez Date of visit: 09/11/2024 Date of : 1940 Age: 83 y.o. Patient Active Problem List Diagnosis Abdominal pain Calculus of ureter BMI 45.0-49.9, adult ([facility]) Morbid obesity ([facility]) Mild tricuspid regurgitation Pulmonary hypertension ([facility]) Essential hypertension Preop cardiovascular exam Allergies Allergen Reactions Lisinopril Cough Diatrizoate Meglumine Rash Iodine Rash Levofloxacin In D5w Rash Propoxyphene Rash Current Outpatient Medications Medication Sig Dispense Refill acetaminophen-codeine (TYLENOL #3) 300-30 mg per tablet Take 1 tablet by mouth every 4 (four) hours as needed for pain. furosemide (LASIX) 20 mg tablet Take 2 tablets (40 mg total) by mouth daily with breakfast AND 1 tablet (20 mg total) Daily before evening meal. 40 mg in am and 20 mg in pm. 90 tablet 6 insulin aspart U-100 (NovoLOG) 100 unit/mL injection Inject under the skin 3 (three) times a day before meals. As directed per sliding scale insulin detemir (LEVEMIR FLEXPEN SUBQ) Inject 60 Units under the skin in the morning. levothyroxine (SYNTHROID, LEVOTHROID) 25 MCG tablet Take 1 tablet (25 mcg total) by mouth nightly. LORazepam (ATIVAN) 0.5 mg tablet Take 1 tablet (0.5 mg total) by mouth daily as needed. losartan (COZAAR) 100 mg tablet take 1 tablet by mouth in the morning 90 tablet 3 magnesium oxide (MAGOX) 400 mg tablet Take 1 tablet (400 mg total) by mouth in the morning. 90 tablet 3 pantoprazole (PROTONIX) 40 mg EC tablet Take 1 tablet (40 mg total) by mouth in the morning. zolpidem (AMBIEN) 10 mg tablet Take 1 tablet (10 mg total) by mouth nightly as needed for sleep. No current facility-administered medications for this visit. Chief Complaint Patient presents with Pre-op Exam EST PT PREOP CLEARANCE DR LERMA RIGHT WRIST SURGERY, LS 04/17/22 GRU, PATS ALFREDO 09/07/24, SCHED W/PT History of Present Illness I had the opportunity to meet this 83-year-old today. She was last in the office 04/2022 She denies chest pain, worsening shortness of breath, syncope, palpitations. 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 STRESS: No results found. HOLTER: No results found. CARDIAC CATH: No results found. CAROTID: No results found. CXR: X-ray chest 2 views Result Date: 09/07/2024 CHEST 2 VIEWS HISTORY: Preop COMPARISON: 10/03/2021 FINDINGS: No focal airspace disease, pulmonary edema, pleural effusions, or pneumothorax. Normal cardiomediastinal silhouette. IMPRESSION: No acute cardiopulmonary disease. Finalized by Farhat Fraga MD on 09/07/2024 4:29 PM Lipid Profile: Lab Results Component Value Date Cholesterol 161 09/10/2022 Cholesterol:HDL Ratio 3.7 09/10/2022 HDL Cholesterol 43 09/10/2022 Triglycerides 171 (H) 09/10/2022 LDL (calc) 84 09/10/2022 No data recorded No data recorded No data recorded EK09/07/2024 Sinus rhythm at 86 Past Medical History: Diagnosis Date Anxiety C. difficile diarrhea CHF (congestive heart failure) [place] Dental disease Diabetes mellitus type I [place] Hypertension Hypothyroid Insomnia Kidney stone stage 3 Neuropathy Obesity Osteoarthritis Paroxysmal supraventricular tachycardia ([facility] Peripheral neuropathy Plantar fasciitis Pulmonary HTN [place] PVD (peripheral vascular disease) [place] Visual impairment White coat syndrome with diagnosis of hypertension Past Surgical History: Procedure Laterality Date APPENDECTOMY 1951 SECTION x2 DILATION AND CURETTAGE OF UTERUS DISCECTOMY EYE SURGERY NECK SURGERY TONSILLECTOMY Family History Problem Relation Age of Onset Cancer Mother Ovarian cancer Mother Heart disease Father Social History Socioeconomic History Marital status: Spouse name: Not on file Number of children: Not on file Years of education: Not on file Highest education level: Not on file Occupational History Not on file Tobacco Use Smoking status: Former Smokeless tobacco: Never Vaping Use Vaping status: Never Used Substance and Sexual Activity Alcohol use: Never Drug use: Never Sexual activity: Defer Other Topics Concern Caffeine Use Yes Comment: coffee Social History Narrative Not on file Social Drivers of Health Financial Resource Strain: Not on file Food Insecurity: No Food Insecurity (09/11/2024) Hunger Screening Food Insecurity - Worry: Never True Food Insecurity - Inability: Never True Transportation Needs: Not on file Physical Activity: Not on file Stress: Not on file Social Connections: Not on file Interpersonal Safety: Not on file Housing Instability: Not on file Review of Systems Review of Systems Constitutional: Negative. HENT: Negative. Eyes: Negative. Cardiovascular: Negative. Vascular: Negative. Respiratory: Negative. Endocrine: Negative. Hematologic/Lymphatic: Negative. Skin: Negative. Musculoskeletal: Positive for joint swelling and muscle weakness. Gastrointestinal: Negative. Genitourinary: Negative. Neurological: Positive for numbness. Negative for loss of balance. Psychiatric/Behavioral: The patient is nervous/anxious. Allergic/Immunologic: Negative. CARDIOVASCULAR: Please review HPI. Physical Examination General appearance: Alert, oriented and cooperative. In no acute distress. Chronically ill-appearing, examined in wheelchair. Accompanied by daughter (on phone for entirety of visit) Ears, Nose, Mouth, poor dentition Eyes: Conjunctivae unremarkable, EOM intact. Neck: No JVD, No carotid bruit. Neck supple, trachea midline. Respiratory: Clear to auscultation bilaterally, no use of accessory muscles. Cardiovascular: RRR Musculoskeletal: Severe bilateral lymphedema VITAL SIGNS: BP 118/62 Pulse 108 Ht 152.4 cm (5') SpO2 98% BMI 48.24 kg/m No orders of the defined types were placed in this encounter. There are no discontinued medications. IMPRESSIONS/PLAN There are no diagnoses linked to this encounter. 1. Primary hypertension, controlled 2. Type 2 diabetes 3. Dyslipidemia associated with type 2 diabetes 4. Stage IIIB chronic kidney disease -09/09/2023 creatinine 1.83 --follows with Nephrology 5. Hypothyroid 6. Echocardiogram 08/2024 with moderate left ventricular hypertrophy and normal left ventricular systolic function. No significant valvulopathy 7. Lymphedema --patient previously attended lymphedema clinic but has difficulty with transportation. Her lower extremity lymphedema is severe with frequent wounds. We discussed the concerns of infection which may be come systemic and life threatening. She voices understanding but states that she has no way to regularly attend lymphedema clinic 8. BMI greater than 48 Known risk factors for ASCVD without symptoms Moderate risk from a cardiology standpoint for anticipated orthopedic procedure TODAYS ORDERS No orders of the defined types were placed in this encounter. FOLLOW UP Return in about 1 year (around 09/11/2025). PCP: ANGELINE BRIDGES MD Referring Physician: Angeline Bridges MD [address] [place] [address] documented in this encounter [facility] 09-10-2024 Miscellaneous Notes Left message for patient to remind them to bring their most current medication list with them to their appointment. documented in this encounter [facility] 09-10-2024 Telephone encounter Note Left message for patient to remind them to bring their most current medication list with them to their appointment. [facility] 09-09-2024 Miscellaneous Notes No objection Patient left voicemail requesting clearance for surgery sent via fax to [facility] in [place] per patient request as she stated she broke my arm and it was a bad break that requires surgery now documented in this encounter [facility] 09-09-2024 Telephone encounter Note No objection [facility] 09-09-2024 Telephone encounter Note Patient left voicemail requesting clearance for surgery sent via fax to [facility] in [place] per patient request as she stated she broke my arm and it was a bad break that requires surgery now [facility] 07-31-2024 Miscellaneous Notes Patient called requesting Lasix refill be sent to [facility] documented in this encounter [facility] 07-31-2024 Telephone encounter Note Patient called requesting Lasix refill be sent to [facility] 07-08-2024 History of Present illness Narrative Rupa Gutierrez is a 83 y.o. female No ref. provider found presents with chief complaint of No chief complaint on file. HPI: Interim History: 06/2024 Follow-up visit on 07/08/2024 for type 2 diabetes, She is on Levemir 50 QHS and NovoLog 16 at breakfast and 20 at dinner. we saw her with tele, said bg in good range this am was 178. On Levothyroxine 25 mcg 5 days a week and 50 2 days a week. Interim History: 01/2024 Follow-up visit on 02/11/2024 for type 2 diabetes, She is on Levemir 50 QHS and NovoLog 16 at breakfast and 20 at dinner. we saw her with tele, said bg in good range this am was 183, had one time low. Interim History: 08/2023 Follow-up visit on 08/28/2023 for type 2 diabetes, She is on Levemir 50 QHS and NovoLog 15 at breakfast and 20 at dinner. we saw her with tele, said bg in good range. Interim History: 02/2023 Follow-up visit on for type 2 diabetes, She is on Levemir 50 QHS and NovoLog 15 at breakfast and 20 at dinner. we start tele for her today then we finish with phone call, said bg in good range. Interim History: 08/2022 Follow-up visit on 08/29/2022 for type 2 diabetes, She is on Levemir 50 QHS and NovoLog 10 at breakfast and 20 at dinner. we did tele for her today, said bg in high range. Interim History: 12/2021 Follow-up visit on 01/11/2022 for type 2 diabetes, She is on Levemir 40 QHS and NovoLog 6 at breakfast and 8 at dinner. we did tele for her today, said bg in good range Interim History: 10/2021 Follow-up visit on 10/18/2021 for type 2 diabetes, She is on Levemir 40 QHS and NovoLog 6 at breakfast and 8 at dinner. Interim History: 02/2021 Follow-up visit on 03/13/2021 for type 2 diabetes , TELE . She is on Levemir 55 in the morning and NovoLog 15 at breakfast and 20 at dinner. Interim History: 08/2020 Follow-up visit on 09/12/2020 for type 2 diabetes , TELE . She is on Levemir 55 in the morning and NovoLog 15 at breakfast and 20 at dinner. Interim History: 05/2020 Follow-up visit on 06/07/2020 for type 2 diabetes , we saw her today with tele . She is on Levemir 55 in the morning and NovoLog 15 at breakfast and 20 at dinner. Interim History: 02/2020 Follow-up visit on 02/23/2020 for type 2 diabetes. A1c in the office 9.8, blood sugar is 221. She is on Levemir 55 in the morning and NovoLog 15 at breakfast and 20 at dinner. No meters and she forgot to bring her log book. Interim history: 11/2019 Follow-up visit 11/18/19 for type 2 diabetes. We saw her today with telemedicine through [facility]. She is on Levemir 40 in the morning, supposed to be on 55, and NovoLog only uses it twice a day, 15 with breakfast and 20 with supper, she does not eat lunch. She said she is afraid if her blood sugars are than 150. No crazy numbers above 300 or 400 and she is doing okay so far. Interim History: 07/2019. Follow-up visit of 07/21/2019 for type 2 diabetes. CGM interpretation; 0% in good range, 10 in good range, 90 in high range, average 249, and standard deviation 50. Labs done; total cholesterol 161, triglycerides 167, HDL 31, LDL 97, BUN 27, creatinine 1.18, GFR 44, vitamin D 16.8, and albumin/creatinine 101. Last time, we switched her to Levemir once a day 40 and we will start her NovoLog 03-24-12 but numbers are still in the high range. HPI: 07/06 New patient sent from Elle Galeano CNP for uncontrolled diabetes. A1C in the office 11.6, blood sugar 345, and she is currently on Levemir 42 in the morning and 32 at bedtime, she use to be on 36 and 26. No new other insulin, off metformin since long time. I do not know her kidney numbers. She was in the hospital due to C-difficile and she has diabetes since 10 years and she states she checks blood sugars once a year. No ulcer or skin break in her feet. She looks older than her age. SUBJECTIVE: MEDICATIONS: Current Outpatient Medications Medication Instructions acetaminophen-codeine (Tylenol w/ Codeine #3) 300-30 MG tablet 1 tablet, Nightly PRN carvedilol (Coreg) 25 MG tablet 1 tablet, Oral, 2 times daily with meals ergocalciferol (VITAMIN D2) 1.25 mg, Oral, Every 7 days FreeStyle lancets 1 each, Other, 2 times daily, DX: E11.59 glucose blood (True Metrix Blood Glucose Test) test strip USE 1 STRIP TO CHECK GLUCOSE TWICE DAILY Insulin Aspart (NovoLOG) 100 UNIT/ML solution Injection, 2 times daily, 16 Units Breakfast, 20 Units dinner insulin detemir (Levemir) 100 UNIT/ML injection INJECT 50 UNITS UNDER THE SKIN EVERY MORNING for 80 Insulin Syringe 31G X 5/16 1 ML misc 1 each, Does not apply, 4 times daily, DX: E11.59 levothyroxine (Synthroid, Levoxyl) 25 MCG tablet TAKE 1 TABLET BY MOUTH ONCE DAILY FOR 5 DAYS OUT OF THE WEEK AND TAKE 2 TABLETS BY MOUTH ONCE DAILY 2 DAYS OUT OF THE WEEK LORazepam (Ativan) 0.5 MG tablet Every 24 hours losartan (COZAAR) 100 mg, Oral, Every morning losartan-hydroCHLOROthiazide (Hyzaar) 100-12.5 MG tablet 1 tablet, Oral, Daily pantoprazole (PROTONIX) 40 mg, Oral, Daily zolpidem (AMBIEN) 10 mg, Oral ALLERGIES: Allergies Allergen Reactions Capsaicin Unknown Iodinated Contrast Media Unknown Levofloxacin Unknown Lisinopril Cough Propoxyphene Unknown Ropinirole Unknown Iodine Rash Other Reaction(s): Rash Comments: IV DYE Past Medical History: Diagnosis Date Chronic kidney disease, stage III (moderate) (HCC) ([facility]) Diabetes ([facility]) Dietary counseling and surveillance Essential (primary) hypertension ([facility]) 10/26/2008 History of being hospitalized C Difficile Hypertension ([facility]) Hypothyroidism, unspecified ([facility]) Insomnia residential (current) use of insulin ([facility]) Mixed hyperlipidemia ([facility]) Morbid obesity with body mass index (BMI) of 40.0 to 49.9 ([facility]) Type 2 diabetes mellitus with other circulatory complications ([facility]) 1950 Vitamin D deficiency, unspecified Past Surgical History: Procedure Laterality Date APPENDECTOMY 1951 CATARACT EXTRACTION Bilateral CERVICAL SPINE SURGERY 2017 SECTION, LOW TRANSVERSE x2 OTHER SURGICAL HISTORY 1952 T & A REVIEW OF SYMPTOMS: 14 POINT OF SYSTEM REVIEWED AND NEGATIVE OBJECTIVE: We saw her with tele. No results found for: HGBA1C Lab Results Component Value Date GLU 221 (H) 02/07/2024 GLU 210 (H) 10/30/2023 GLU 269 (H) 10/29/2022 Visit Vitals Smoking Status Former ASSESSMENT AND PLAN: Assessment/Plan Diagnoses and all orders for this visit: Type 2 diabetes mellitus with hyperglycemia, with long-term current use of insulin ([facility]) We will continue with Levemir 50 units, NovoLog 16 breakfast 20 at dinner. Vitamin D deficiency Insulin long-term use ([facility]) Primary hypertension ([facility]) Hyperlipemia, mixed ([facility]) Encounter for dietary consultation Diet and exercise reviewed with the patient Acquired hypothyroidism ([facility]) We will continue with levothyroxine 25 mcg 5 days a week and 50 mcg 2 days a week. 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 documented in this encounter [facility] 02-18-2024 History of Present illness Narrative Images from the original note were not included. Subjective Patient ID: Enriqueta Gutierrez is a 83 y.o. female who presents for DM Foot Care (PCP: Marta GUILLEN 02/03/24, A1C: 9.7, BS: 193). HPI Chief complaint: Thickened, discolored and deformed toenails. Requesting nail care. Describes all digits as such; mildly problematic/symptomatic with shoe gear pressure. Denies bleeding or drainage. Also complains of progressive catching and snapping on clothing etc. Chronic toenail deformity; gradually progressive multiple years. Self-care is difficult, ineffective and not practical; significantly increasing risk exposure. Family members unable to provide effective care. Patient is well satisfied with previous palliative care measures. Risk factors: IDDM. Lymphedema. Peripheral angiopathy. Peripheral neuropathy. Medical comorbidities. Mobility, flexibility and dexterity restraints. Toenail deformity. Digital and/or shoe trauma and related complications. Patient indicates that 5th digit right foot has remained ulcer free. Medications Current Outpatient Medications: insulin detemir (Levemir) 100 UNIT/ML injection, INJECT 50 UNITS UNDER THE SKIN EVERY MORNING for 80, Disp: , Rfl: levothyroxine (Synthroid, Levoxyl) 25 MCG tablet, 25 mcg, Disp: , Rfl: LORazepam (Ativan) 0.5 MG tablet, 1 (one) time each day at the same time, Disp: , Rfl: losartan (Cozaar) 100 MG tablet, Take 100 mg by mouth in the morning., Disp: , Rfl: pantoprazole (ProtoNix) 40 MG EC tablet, Take 40 mg by mouth in the morning., Disp: , Rfl: zolpidem (Ambien) 10 MG tablet, Take 10 mg by mouth, Disp: , Rfl: Allergies Capsaicin, Iodinated contrast media, Levofloxacin, Propoxyphene, and Iodine Past Surgical History Past Surgical History: Procedure Laterality Date APPENDECTOMY 1951 CERVICAL SPINE SURGERY 2016 SECTION, LOW TRANSVERSE x2 OTHER SURGICAL HISTORY 1952 T & A Family History Family History Problem Relation Name Age of Onset Cancer Mother Objective General assessment: Alert and oriented. Pleasant disposition. Presents by way of wheelchair; unable to transfer into a treatment chair. Vascular: DP faintly palpable bilateral. PT non-palpable bilateral. CFT remains fairly brisk on digits. Skin temperature: Warm-cool all digits. Extensive edema of the lower extremities, bilateral ankles; relative sparing of the feet. Brawny coarse skin changes, without pigmentation or active dermatitis. Neurologic: tactile and light touch sensation is compromised over the forefoot and digital areas. Inconsistent localization 5.07 monofilament; particularly over the digital and forefoot areas. Dermatologic: skin turgor is fair. Toenail pathology: All digits: None are spared: Gross toenail dystrophy, thickening, elongation, discoloration, pincer deformity, crumbly texture, subtotal detachment, periungual hyperkeratosis, without drainage. Marginal cryptosis multiple digits. Web space areas are clean, dry, non-inflamed. Lesion pattern: No forefoot or digital discrete keratotic lesions are noted. 5th digit right foot: Maintains effective wound closure; with minimal callus formation. The site is non-inflamed, non-fluctuant, without drainage. No ischemic changes are noted. Orthopedic: Range of motion: Limited ankle, subtalar and first MTP joint range of motion. Radiology: Assessment/Plan Symptomatic onychodystrophy/mycosis multiple digits. IDDM Diabetic peripheral angiopathy/lymphedema (Q8). Diabetic peripheral neuropathy (Q9). Effective healing of ulcerative lesion 5th toe right foot. Plan: conservative and palliative care measures are mutually agreed upon, understood and indicated. Patient expresses no interest in oral therapy, nor is it recommended. Topical therapy is difficult and not practical for her. Hygiene and skin care measures discussed as able to do so; particularly spacing techniques and use of cornstarch powder for the web space areas. Diabetic education and assessment relative to the high risk condition. Procedure: Toenail debridement: Aseptic technique: Hand and power instrumentation: Onychodebridement in length and thickness, with curettage of any cryptotic margins, all periungual debris; providing effective symptom and pressure relief; reducing shoe and digital trauma; reducing potential risks associated with the diabetic neuropathic and vasculopathic conditions, and related complications. This note was created with the assistance of a speech recognition program. While intending to generate a timely document that accurately reflects the content of the visit, no guarantee can be provided that every grammatical or spelling mistake has been or will be identified or corrected. Thank you for your understanding. Jaclyn Potts DPM documented in this encounter [facility] 02-18-2024 Instructions Jaclyn Potts DPM - 02/18/2024 3:30 PM EDT As noted documented in this encounter [facility] 02-14-2024 History of Present illness Narrative Images from the original note were not included. Date of Service: 02/14/24 PCP: Marta Dee MD History of Present Illness Rupa Gutierrez is a 83 y.o. female, who is following with us for management of her chronic kidney disease, hypertension, volume status. She reports no new issues since her last visit. Presently, she denies any shortness of breath, chest pain, lower extremity edema, difficulty with urination. At the time of her last visit her creatinine was 1.3 mg/dL. Most recent laboratory study shows a creatinine of 1.57 mg/dL. This visit was conducted via telemedicine with audio and video conferencing. Patient did provide consent for this visit. Patient provided name and date of . Patient was at home at the time of this visit. Provider was at the office. Problem List 1. Stage 3 chronic kidney disease. Nephrologic investigations in May of 2020 included an LUISITO screen which was positive and anti double-stranded DNA antibody titer that was elevated to 27. Rheumatoid factor less than 10. 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 A urinalysis on 05/27/2020 showed trace protein greater than 1000 mg/dL of glucose less than 1 red blood cell and 1 white blood cell per high-power field the urine protein creatinine ratio was 0.98 gram/gram predicting that in 24 hours, approximately 980 mg of protein would be excreted. Some early serologies include a C-reactive protein which was 2.0. An LUISITO screen which was positive. Anti double-stranded DNA was 27. Rheumatoid factor was less than that. A urinalysis of 04/17/2019 showed 100 mg/dL protein. 2. Type 1 diabetes mellitus 3. Hypertension 4. Hyperlipidemia 5. Hypothyroidism 6. History of distal left ureteral calculus followed by Dr. Harris. A CT scan of the abdomen pelvis on November 01, 2019 showed a left, 2 mm, ureterovesical junction stone. She was treated transiently with Flomax but stopped it because it made her feel poorly. By 09/04/2019 was felt that she had spontaneously passed the stone. 7.Osteoarthritis. Multiple joints affected, a right total knee arthroplasty has been recommended by Dr. Arevalo. 8. Cervical radiculopathy status post anterior approach diskectomy 9. History of C difficile diarrhea Medical, Surgical, Family & Social History Medical History: Past Medical History: Diagnosis Date Anxiety C. difficile diarrhea CHF (congestive heart failure) ([facility]) Diabetes mellitus type I ([facility]) Hyperlipidemia Hypertension Hypothyroid Insomnia Kidney stone Obesity Osteoarthritis Paroxysmal supraventricular tachycardia ([facility]) Peripheral neuropathy Plantar fasciitis [place]peripheral vascular disease[place] White coat syndrome with diagnosis of hypertension Surgical History: Past Surgical History: Procedure Laterality Date APPENDECTOMY 1951 SECTION x2 DILATION AND CURETTAGE OF UTERUS DISCECTOMY EYE SURGERY NECK SURGERY TONSILLECTOMY Social History: Social History Socioeconomic History Marital status: Spouse name: Not on file Number of children: Not on file Years of education: Not on file Highest education level: Not on file Occupational History Not on file Tobacco Use Smoking status: Former Smokeless tobacco: Never Vaping Use Vaping status: Never Used Substance and Sexual Activity Alcohol use: Never Drug use: Never Sexual activity: Defer Other Topics Concern Caffeine Use Yes Comment: coffee Social History Narrative Not on file Social Determinants of Health Financial Resource Strain: Not on file Food Insecurity: No Food Insecurity (06/13/2023) Hunger Screening Food Insecurity - Worry: Never True Food Insecurity - Inability: Never True Transportation Needs: Not on file Physical Activity: Not on file Stress: Not on file Social Connections: Not on file Interpersonal Safety: Not on file Housing Instability: Not on file Family History: Family History Problem Relation Age of Onset Cancer Mother Ovarian cancer Mother Heart disease Father Allergies & Medications Allergies: Allergies Allergen Reactions Levofloxacin In D5w Lisinopril Cough Diatrizoate Meglumine Rash Iodine Rash Propoxyphene Rash Current Meds: Current Outpatient Medications Medication Sig Dispense Refill acetaminophen-codeine (TYLENOL #3) 300-30 mg per tablet Take 1 tablet by mouth every 4 (four) hours as needed for pain. furosemide (LASIX) 20 mg tablet Take 2 tablets (40 mg total) by mouth daily AND 1 tablet (20 mg total) daily. 40 mg in am and 20 mg in pm. 90 tablet 3 insulin aspart U-100 (NovoLOG) 100 unit/mL injection Inject under the skin 3 (three) times a day before meals. As directed per sliding scale insulin detemir (LEVEMIR FLEXPEN SUBQ) Inject 50 Units under the skin in the morning. levothyroxine (SYNTHROID, LEVOTHROID) 25 MCG tablet Take 1 tablet (25 mcg total) by mouth nightly. LORazepam (ATIVAN) 0.5 mg tablet Take 1 tablet (0.5 mg total) by mouth daily as needed. losartan (COZAAR) 100 mg tablet take 1 tablet by mouth in the morning 90 tablet 0 pantoprazole (PROTONIX) 40 mg EC tablet Take 1 tablet (40 mg total) by mouth in the morning. zolpidem (AMBIEN) 10 mg tablet Take 0.5 tablets (5 mg total) by mouth nightly as needed for sleep. magnesium oxide (MAGOX) 400 mg tablet Take 1 tablet (400 mg total) by mouth in the morning. 90 tablet 3 No current facility-administered medications for this visit. Review of Systems Review of Systems Constitutional: Negative for chills, diaphoresis, fatigue and fever. HENT: Negative for congestion, ear discharge, ear pain, facial swelling and hearing loss. Eyes: Negative for pain, discharge, redness and itching. Respiratory: Negative for cough, shortness of breath and wheezing. Cardiovascular: Negative for chest pain, palpitations and leg swelling. Gastrointestinal: Negative for abdominal pain, constipation, diarrhea, nausea and vomiting. Endocrine: Negative for polydipsia, polyphagia and polyuria. Genitourinary: Negative for decreased urine volume, difficulty urinating, dysuria, enuresis, flank pain, frequency, hematuria and urgency. Musculoskeletal: Negative for arthralgias, joint swelling and myalgias. Skin: Negative for rash and wound. Neurological: Negative for dizziness, tremors, weakness, light-headedness and numbness. Hematological: Negative for adenopathy. Does not bruise/bleed easily. Physical Exam Vital Signs: Vitals: 02/14/24 1231 BP: 137/78 BP Site: Left Arm BP Postition: Sitting Weight: 104.3 kg (230 lb) Height: 147.3 cm (4' 10 ) BMI: Body mass index is 48.07 kg/m . General appearance: alert in no apparent distress. Psychiatric: Oriented to place, time and person HEENT: atraumatic, supple, moist oral mucosa, no JVD Cardiovascular: normal S1-S2 Respiratory: No respiratory distress with no use of accessory muscles. Clear to auscultation bilaterally with no wheezes or crackles Abdomen: soft, no tenderness, no guarding, positive bowel sounds and no hepato or splenomegaly Vascular: adequate pulses and no carotid bruits. Musculoskeletal: no joint swelling or tenderness. Neurologic: No focal deficit in upper or lower extremities Lymphatic: no cervical or axillary lymphadenopathy. Edema: chronic lymphedema Laboratory Studies Chemistry: Lab Results Component Value Date SODIUM 142 02/07/2024 K 4.2 02/07/2024 CL 104 02/07/2024 CO2 26 02/07/2024 ANIONGAP 12 02/07/2024 BUN 37 (H) 02/07/2024 CREATININE 1.57 (H) 02/07/2024 EGFR 33 (L) 02/07/2024 CALCIUM 9.0 02/07/2024 MG 1.7 (L) 02/07/2024 PHOSPHORUS 3.7 02/07/2024 Hematology: Lab Results Component Value Date WBC 8.7 02/07/2024 HGB 12.7 02/07/2024 HCT 38.3 02/07/2024 PLT 297 02/07/2024 Anemia Studies: No results found for: IRONSAT , [id number] , FOLATE Mineral and Bone Labs: Lab Results Component Value Date CALCIUM 9.0 02/07/2024 PHOSPHORUS 3.7 02/07/2024 VITD25 57.7 10/30/2023 PTH 161 (H) 02/07/2024 Urine Studies: Lab Results Component Value Date COLOR YELLOW 02/07/2024 TURBIDITY CLEAR 02/07/2024 SPECIFICGRA 1.018 02/07/2024 NITRITE Negative 02/07/2024 PHURINE 6.0 02/07/2024 LEUKOCYTE Negative 02/07/2024 PROTEIN 50 (A) 02/07/2024 KETONES Negative 02/07/2024 UROBILINOGEN <1.1 02/07/2024 BLOODHGB Small (A) 02/07/2024 Lab Results Component Value Date UPROCRTRAT 0.80 (H) 02/07/2024 ALBCREATRA 154.8 (H) 09/14/2022 Immunology Profile Lab Results Component Value Date CRP 2.0 (H) 05/27/2020 ANASCREEN Positive (A) 05/27/2020 MYELOP <0.2 09/20/2020 No results found for: HAV , HEPAIGM , HEPBIGM , HEPBCAB , HBEAG , HEPCAB Imaging Echocardiogram: No results found. Assessment & Plan 1. Chronic kidney disease stage IIIB with estimated GFR 33 mL/min and a stable creatinine since her last visit. With underlying kidney disease likely related to hypertensive nephrosclerosis versus diabetic nephropathy. She was advised on the importance of proper blood pressure control, blood sugar control, avoidance of NSAID medications, IV contrast dyes, possible. Follow-up in 4 months 2. Hypertension: Blood pressures are controlled today 3. Diabetes: Further management per primary care 4. Edema: She is hypervolemic upon exam. She was encouraged to limit fluids to 55 oz. She was following with lymphedema clinic but canceled due to transportation issues 5. Secondary hyperparathyroidism of renal origin: No recent vitamin-D level. PTH is stable. 6. Hypomagnesemia: start mag supplement Thank you Marta Dee MD for the allowing us to continue participant in the care of this patient. Please contact me at [phone] (Office) or [phone] (Answering service) with any questions. JAM [facility] This note was created with the assistance of a speech-recognition program. Although the intention is to generate a document that actually reflects the content of the visit, no guarantees can be provided that every mistake has been identified and corrected by editing. JAM Mckeon 02/14/24 1246 documented in this encounter [facility] 11-06-2023 Miscellaneous Notes Pt. Called to cancel her appointment because her son is very sick in the hospital and he might no make it. She is requesting if the lab work that she has done for this appointment can be taken in January when is her next appointment. documented in this encounter [facility] 11-06-2023 Telephone encounter Note Pt. Called to cancel her appointment because her son is very sick in the hospital and he might no make it. She is requesting if the lab work that she has done for this appointment can be taken in January when is her next appointment. [facility] 11-06-2023 Miscellaneous Notes LVM for patient to return phone call to office to confirm appt 11/06 [facility]/ pam at 1:40pm in [place] documented in this encounter [facility] 11-06-2023 Telephone encounter Note LVM for patient to return phone call to office to confirm appt 11/06 w/ pam at 1:40pm [place] [facility] 09-04-2023 Miscellaneous Notes 2ND LVM for patient to confirm appt as well to remind to have labs done also to move patient spot up from 3:20 documented in this encounter [facility] 09-04-2023 Telephone encounter Note 2ND LVM for patient to confirm appt as well to remind to have labs done also to move patient spot up from 3:20 [facility] 08-29-2023 Miscellaneous Notes I left a message requesting for a call back to confirm her appointment documented in this encounter [facility] 08-29-2023 Telephone encounter Note I left a message requesting for a call back to confirm her appointment [facility] 07-24-2023 History of Present illness Narrative Images from the original note were not included. Subjective Patient ID: Enriqueta Gutierrez is a 82 y.o. female who presents for Ulcer FUV (Enriqueta Gutierrez is a 82 y.o. female who presents for FUV Right Foot Ulcer, pt relates pain is worse in BL feet, pain is worse when laying down. Has been using mupirocin ointment and corn starch daily. PCP: Marta Dee LV 06/24/23, A1C: 9.0, BS: [phone]). HPI Follow-up assessment: Stage I wound 5th digit right foot. Although still painful, patient does relate some relief or improvement. Denies drainage. Reports good compliance with daily care and offloading measures; although the ointment appears to have macerated the area. Denies streaking or constitutional symptoms. Patient has been unable to arrange appointment for lymphedema therapy. Risk factors: IDDM. Lymphedema. Peripheral angiopathy. Peripheral neuropathy. Medications Current Outpatient Medications: insulin detemir (Levemir) 100 UNIT/ML injection, INJECT 50 UNITS UNDER THE SKIN EVERY MORNING for 80, Disp: , Rfl: levothyroxine (Synthroid, Levoxyl) 25 MCG tablet, 25 mcg, Disp: , Rfl: LORazepam (Ativan) 0.5 MG tablet, 1 (one) time each day at the same time, Disp: , Rfl: losartan (Cozaar) 100 MG tablet, Take 100 mg by mouth in the morning., Disp: , Rfl: pantoprazole (ProtoNix) 40 MG EC tablet, Take 40 mg by mouth in the morning., Disp: , Rfl: zolpidem (Ambien) 10 MG tablet, Take 10 mg by mouth, Disp: , Rfl: Allergies Capsaicin, Iodinated contrast media, Levofloxacin, Propoxyphene, and Iodine Past Surgical History Past Surgical History: Procedure Laterality Date APPENDECTOMY 1951 CERVICAL SPINE SURGERY 2017 SECTION, LOW TRANSVERSE x2 OTHER SURGICAL HISTORY 1952 T & A Family History Family History Problem Relation Name Age of Onset Cancer Mother Objective General assessment: Alert and oriented. Pleasant disposition. Presents by way of wheelchair; unable to transfer into a treatment chair; accompanied by her daughter, Dinorah. Vascular: DP faintly palpable bilateral. PT non-palpable bilateral. CFT remains fairly brisk on digits. Skin temperature: Warm-cool all digits. Extensive swelling and edema of the lower extremities, bilateral ankles; relative sparing of the feet. Brawny coarsening skin changes, without pigmentation or active dermatitis. Neurologic: tactile and light touch sensation is compromised over the forefoot and digital areas. Inconsistent localization 5.07 monofilament; particularly over the digital and forefoot areas. Dermatologic: skin turgor is fair. Toenail pathology: All digits: None are spared: toenail dystrophy and clinical mycosis. Web space areas are generally clean and dry; with cornstarch powder residue. Lesion pattern: No forefoot or digital discrete keratotic lesions are noted. Ulceration: 5th digit right foot: Chris stage I wound; located on the medial aspect of the digit; level of the distal IP joint. The wound appears essentially unchanged, with the exception of marginal lifting and slough of the eschar base. This site is locally inflamed, non-fluctuant, without active bleeding or drainage. Soft tissue envelope remains fairly viable, well perfused without ischemic necrosis. There are no clinical signs of cellulitis or infection. Post-debridement measurements: 07/24/2023: 0.3 x 0.3 x 0.1 cm Post-debridement measurements: 07/05/2023: 0.3 x 0.3 x 0.1 cm Orthopedic: Range of motion: Limited ankle, subtalar and first MTP joint range of motion. Radiology: Assessment/Plan Symptomatic Chris stage I wound 5th digit right foot. IDDM Diabetic peripheral angiopathy/lymphedema (Q8). Diabetic peripheral neuropathy (Q9). Plan: Review of clinical findings, suspected etiology and contributing factors, high risk nature of the condition, treatment strategy and objectives. 5th digit right foot: Partial thickness wound debridement as described. Daily care: Gently cleanse with warm soapy water, apply thin layer of triple antibiotic cream, with no specific dressing (D/C mupirocin ointment, which appears to be macerating the area). Instructions to discontinue soaking. Offloading: cotton toe spacers (discontinue silicone pad, which appears to be contributing to localized skin irritation). Continue cornstarch powder for the web space areas. Recommend Salon Pas patches, Aspercreme, Biofreeze for midfoot arthrosis. Encouraged to pursue lymphedema compression therapy as able. Diabetic education and assessment relative to the high risk condition. Procedure: 5th digit right foot: Aseptic technique: Soft tissue nipper: Sharp, active, selective partial-thickness wound debridement, to the level of intact, well adhered eschar base; excising devitalized, non-viable surrounding keratotic tissue; reducing direct and indirect pressure; reducing wound bioburden. Mupirocin dressing. This note was created with the assistance of a speech recognition program. While intending to generate a timely document that accurately reflects the content of the visit, no guarantee can be provided that every grammatical or spelling mistake has been or will be identified or corrected. Thank you for your understanding. Jaclyn Potts DPM documented in this encounter [facility] 07-24-2023 Instructions Jaclyn Potts DPM - 07/24/2023 10:30 AM EST Instructions as noted documented in this encounter [facility] Healthcare Evaluation note Diagnosis Type 2 diabetes mellitus with stage 1 decubitus ulcer of toe ([facility] Primary Type II diabetes mellitus with peripheral circulatory disorder ([facility] Type II or unspecified type diabetes mellitus with peripheral circulatory disorders, not stated as uncontrolled Diabetic polyneuropathy associated with type 2 diabetes mellitus ([facility] [place]) Encounter for long-term (current) use of insulin ([facility]) Encounter for long-term (current) use of insulin documented in this encounter [facility] HealthcareEvaluation note* Diagnosis 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 documented in this encounter [facility] HealthcareEvaluation note* Diagnosis Dermatophytosis of nail- Primary Dystrophic nail Other specified disease of nail Type II diabetes mellitus with peripheral circulatory disorder ([facility]) Type II or unspecified type diabetes mellitus with peripheral circulatory disorders, not stated as uncontrolled Diabetic polyneuropathy associated with type 2 diabetes mellitus ([facility]) Encounter for long-term (current) use of insulin ([facility] [place]) Encounter for long-term (current) use of insulin documented in this encounter [facility] HealthcareEvaluation note* Diagnosis Type 2 diabetes mellitus with hyperglycemia, with long-term current use of insulin ([facility] [place] Primary Vitamin D deficiency Insulin long-term use ([facility] [place]) Encounter for long-term (current) use of insulin Primary hypertension ([facility] [place]) Unspecified essential hypertension Hyperlipemia, mixed ([facility]) Mixed hyperlipidemia Encounter for dietary consultation Acquired hypothyroidism ([facility] [place]) Unspecified hypothyroidism Class 3 severe obesity due to excess calories with serious comorbidity and body mass index (BMI) of 40.0 to 44.9 in adult ([facility] [place]) 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 documented in this encounter [facility] HealthcareEvaluation note* Diagnosis Stage 3b chronic kidney disease ([facility] Primary documented in this encounter [facility]* Diagnosis Essential hypertension- Primary Unspecified essential hypertension Preop cardiovascular exam Pre-operative cardiovascular examination documented in this encounter [facility]* Diagnosis Lymphedema- Primary Other noninfectious lymphedema Lymphorrhea documented in this encounter [facility]* Diagnosis Pressure injury of right heel, unstageable ([facility])- Primary Lymphedema Other noninfectious lymphedema Acute kidney injury superimposed on CKD Multiple open wounds of foot Hyperkalemia Hyperpotassemia Urinary retention Unspecified retention of urine Lymphedema Other noninfectious lymphedema Hyperkalemia Hyperpotassemia Hypothyroid Unspecified hypothyroidism PVD (peripheral vascular disease) Unspecified peripheral vascular disease Diabetes mellitus type I ([facility]) Type I (juvenile type) diabetes mellitus without mention of complication, not stated as uncontrolled Hyponatremia Hyposmolality and/or hyponatremia Venous stasis ulcer of right lower leg with edema of right lower leg ([facility]-HCC) Venous stasis ulcer of left lower leg with edema of left lower leg ([facility]) documented in this encounter [facility]* Diagnosis CKD (chronic kidney disease) stage 2, GFR 60-89 ml/min- Primary Chronic kidney disease, Stage II (mild) documented in this encounter [facility]* Diagnosis Lymphedema- Primary Other noninfectious lymphedema Lymphorrhea Pressure injury of right heel, unstageable (CMS-HCC) Non-pressure ulcer of lower extremity with fat layer exposed, right ([facility]) Venous stasis ulcer of left lower leg with edema of left lower leg ([facility]) documented in this encounter [facility]* Diagnosis Stage 3b chronic kidney disease ([facility] Primary documented in this encounter [facility]* Diagnosis Non-pressure ulcer of lower extremity with fat layer exposed, right (CMS-HCC)- Primary Pressure injury of right heel, unstageable (CMS-HCC) Venous stasis ulcer of left lower leg with edema of left lower leg (CMS-HCC) Lymphorrhea 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 ([facility]) [facility] filedocumented in this [facility] filedocumented in this [facility] filedocumented in [facility] filedocumented in [facility] filedocumented in [facility] SystemInstructionsNot on filedocumented in this encounter [facility]ructionsNot on filedocumented in this encounter [facility] SystemInstructionsNot on filedocumented in this encounter [facility] SystemInstructionsNot on filedocumented in this encounter [facility] SystemInstructionsNot on filedocumented in this encounter [facility] SystemReason for referral (narrative)* Misc (Routine) - Authorized Specialty Diagnoses / Procedures Referred By Contac t Referred To Contact Procedures Codie Wynne APRN-CNP [address] [place] [address] Phone: tel: fax: Referral ID Status Reason Start Date Expiration Date V isits Requested Visits Authorized [id number] Authorized 11/18/2024 11/18/2025 1 1 * Misc (Routine) - Authorized Specialty Diagnoses / Procedures Referred By Wilber hernandez Referred To Contact Procedures Codie Brizuela APRN-CNP [address] [place] [address] Phone: tel: fax: Referral ID Status Reason Start Date Expiration Date V isits Requested Visits Authorized [id number] Authorized 11/18/2024 11/18/2025 1 1 [facility] Summary Purpose Family History No Family History Records FoundNo Family History Records FoundNo Family History Records FoundNo Family History Records FoundNo Family History Records FoundNo Family History Records FoundNo Family History Records FoundNo Family History Records Found Advance Directives Date Activated Date Inactivated Comments 11/08/2024 3:51 PM 11/14/2024 11:31 AM Date Activated Date Inactivated Comments 10/23/2024 6:54 PM 10/27/2024 5:45 PM Date Activated Date Inactivated Comments 04/18/2019 3:42 AM 04/18/2019 6:52 PM Date Activated Date Inactivated Comments 04/18/2019 3:42 AM 04/18/2019 6:52 PM Latest Code Status on File Code Status Date Activated Date Inactivated Comments Full Code 04/18/2019 3:42 AM 04/18/2019 6:52 PM Date Activated Date Inactivated Comments 11/08/2024 3:51 PM Date Activated Date Inactivated Comments 11/08/2024 3:51 PM Date Activated Date Inactivated Comments 10/23/2024 6:54 PM 10/27/2024 5:45 PM Date Activated Date Inactivated Comments 04/18/2019 3:42 AM 04/18/2019 6:52 PM Date Activated Date Inactivated Comments 11/08/2024 3:51 PM 11/14/2024 11:31 AM Documents on File Type Date Recorded Patient Agronomy Advisor Expl anation Durable Power of Refractive Surgeon 12/08/2024 10:55 AM Date Activated Date Inactivated Comments 11/30/2024 2:08 PM 12/03/2024 12:36 PM Date Activated Date Inactivated Comments 11/08/2024 3:51 PM 11/14/2024 11:31 AM Date Activated Date Inactivated Comments 10/23/2024 6:54 PM 10/27/2024 5:45 PM Date Activated Date Inactivated Comments 04/18/2019 3:42 AM 04/18/2019 6:52 PM Documents on File Type Date Recorded Patient Agronomy Advisor Expl anation Durable Power of Refractive Surgeon 12/08/2024 10:55 AM Date Activated Date Inactivated Comments 11/30/2024 2:08 PM 12/03/2024 12:36 PM Date Activated Date Inactivated Comments 11/08/2024 3:51 PM 11/14/2024 11:31 AM Date Activated Date Inactivated Comments 10/23/2024 6:54 PM 10/27/2024 5:45 PM Date Activated Date Inactivated Comments 04/18/2019 3:42 AM 04/18/2019 6:52 PM Date Activated Date Inactivated Comments 01/15/2025 1:49 PM Date Activated Date Inactivated Comments 01/14/2025 1:27 AM 01/15/2025 1:49 PM Date Activated Date Inactivated Comments 11/30/2024 2:08 PM 12/03/2024 12:36 PM Date Activated Date Inactivated Comments 11/08/2024 3:51 PM 11/14/2024 11:31 AM Date Activated Date Inactivated Comments 10/23/2024 6:54 PM 10/27/2024 5:45 PM Additional Source Comments INFORMATION SOURCE (unrecogn ized section and content) DATE CREATED AUTHOR 07/21/2022 [facility] DATE CREATED AUTHOR AUTHOR'S ORGANIZ ATION 09/20/2022 [facility] DATE CREATED AUTHOR AUTHOR'S ORGANIZ ATION 07/10/2024 [facility] EPIC DATE CREATED AUTHOR AUTHOR'S ORGANIZ ATION 09/12/2024 [facility] DATE CREATED AUTHOR AUTHOR'S ORGANIZ ATION 12/23/2024 [facility] DATE CREATED AUTHOR AUTHOR'S ORGANIZ ATION 01/04/2025 [facility] DATE CREATED AUTHOR AUTHOR'S ORGANIZ ATION 01/23/2025 [facility] DATE CREATED AUTHOR AUTHOR'S ORGANIZ ATION 01/25/2025 [facility] Care Teams (unrecognized sec tion and content) Quarter Folder Relationship Specialty Start Date End Date Marta Dee MD [address] [place], [place] [id number] PCP - General Pediatrics 05/27/23 Quarter Folder Relationship Specialty Start Date End Date Marta Dee MD [address] [place], [place] [id number] PCP - General Pediatrics 05/27/23 Quarter Folder Relationship Specialty Start Date End Date Marta Dee MD [address] [place], [place] [id number] PCP - General Pediatrics 05/27/23 Quarter Folder Relationship Specialty Start Date End Date Marta Dee MD [address] [place] [address] PCP - General Pediatrics 05/27/23 Quarter Folder Relationship Specialty Start Date End Date Marta Dee MD [address] [place] [id number] PCP - General Pediatrics 05/27/23 Quarter Folder Relationship Specialty Start Date End Date Marta Dee MD [address] [place] [id number] PCP - General Family Medicine 01/20/20 Quarter Folder Relationship Specialty Start Date End Date Marta Dee MD [address] [place] [id number] PCP - General Family Medicine 01/20/20 Quarter Folder Relationship Specialty Start Date End Date Marta Dee MD [address] [place] [address] PCP - General Family Medicine 01/20/20 Quarter Folder Relationship Specialty Start Date End Date Marta Dee MD [address] [place] [address] PCP - General Family Medicine 01/20/20 Quarter Folder Relationship Specialty Start Date End Date Angeline Bridges MD [address] [place] [address] PCP - General Internal Medicine 08/30/24 Quarter Folder Relationship Specialty Start Date End Date Angeline Bridges MD [address] [place] [address] PCP - General Internal Medicine 08/30/24 Quarter Folder Relationship Specialty Start Date End Date Angeline Bridges MD [address] [place] [address] PCP - General Internal Medicine 08/30/24 Quarter Folder Relationship Specialty Start Date End Date Angeline Bridges MD [address] [place] [address] PCP - General Internal Medicine 11/08/24 Quarter Folder Relationship Specialty Start Date End Date Angeline Bridges MD [address] [place] [address] PCP - General Internal Medicine 11/08/24 Quarter Folder Relationship Specialty Start Date End Date Angeline Bridges MD [address] [place] [address] PCP - General Internal Medicine 11/08/24 Quarter Folder Relationship Specialty Start Date End Date Angeline Bridges MD [address] [place] [address] PCP - General Internal Medicine 11/08/24 Quarter Folder Relationship Specialty Start Date End Date Angeline Bridges MD [address] [place] [address] PCP - General Internal Medicine 11/08/24 Quarter Folder Relationship Specialty Start Date End Date Angeline Bridges MD [address] [place] [address] PCP - General Internal Medicine 11/08/24 Quarter Folder Relationship Specialty Start Date End Date Angeline Bridges MD [address] [place] [address] PCP - General Internal Medicine 11/08/24 Quarter Folder Relationship Specialty Start Date End Date Angeline Bridges MD [address] [place] [address] PCP - General Internal Medicine 11/08/24 Quarter Folder Relationship Specialty Start Date End Date Angeline Bridges MD [address] [place] [address] PCP - General Internal Medicine 11/08/24 Quarter Folder Relationship Specialty Start Date End Date Angeline Bridges MD [address] [place] [address] PCP - General Internal Medicine 11/08/24 Quarter Folder Relationship Specialty Start Date End Date Marta Dee MD [address] [place] [address] PCP - General Pediatrics 05/27/23 Reason for Visit (unrecogniz ed section and content) Reason Comments Ulcer FUV Enriqueta Gutierrez is a 82 y.o. female who presents for FUV Right Foot Ulcer, pt relates pain is worse in BL feet, pain is worse when laying down. Has been using mupirocin ointment and corn starch daily. Tylenol #3prn. PCP: Marta Dee LV 06/24/23, A1C: 9.0, BS: [phone] Reason Comments Med Refill Reason Comments DM Foot Care PCP: Marta Dee L V 02/03/24, A1C: 9.7, BS: 193 Reason Comments Pre-op Exam EST PT PREOP CLEARAN CE DR LERMA RIGHT WRIST SURGERY, LS 04/17/22 GRU, PATS ALFREDO 03/24/25, SCHED W/PT Reason Comments Wound Check Reason Onset Date Comments Care Navigation 10/14/2024 Reason Comments Leg Pain Specialty Diagnoses / Procedures Referred By Contac t Referred To Contact Diagnoses Lymphedema Zenobia Funez MD [address], [place] [address] Phone: tel: fax: Referral ID Status Reason Start Date Expiration Date Visits Re quested Visits Authorized [id number] 1 1 Reason Comments Wound Check Specialty Diagnoses / Procedures Referred By Contac t Referred To Contact Wound Care Diagnoses Cellulitis of lower extremity, unspecified laterality Margot Leiva, COMPRESSOR OPERATOR ADJUSTER-OPTICAL COATING TECHNICIAN [address] [place] [address] Phone: tel: fax: [facility] [address] [place] [address] Phone: tel: fax: Referral ID Status Reason Start Date Expiration Date Visits Requested Visits Authorized [id number] Pending Review Specialty Services Required 10/27/2024 10/27/2025 1 1 Scheduled Active and Recently Administ ered Medications (unrecognized section and content) Medication Order 11/12/2024 11/13/2024 11/14/2024 cefEPime (MAXIPIME) IVPB 1000 mg/50 mL in dextrose 5% duplex (20 mg/mL premix)(Linked Group 1) 1,000 mg, intravenous, at 12.5 mL/hr, Administer over 4 Hours, Every 24 hours, First dose on Sat11/11/24 at 2100, Indication: Skin and soft tissue infection 57 (Stop Bag - Provider: Reshma Contreras, KIANNA)2024 (New Bag - Provider: Reshma Contreras RN) 002 (Stop Bag - Provider: Reshma Contreras RN)2050 (New Bag - Provider: Abiola Bustillo, RN) 005 (Stop Bag - Provider: Abiola Bustillo, RN)2100 (Due) cyanocobalamin tablet 1,000 mcg 1,000 mcg, oral, Daily, First dose on Sat11/11/24 at 1200 0802 (Given - Provider: Ermias Borrego RN) 0803 (Given - Provider: Kathy Christine, KIANNA) 0816 (Given - Provider: Sunita Kirby RN) furosemide (LASIX) tablet 40 mg (CANCELED) 40 mg, oral, Daily, First dose on Sat11/10/24 at 1100, Look-alike/sound-alike medication - verify indication for use. 08 (Given - Provider: Ermias Borrego RN) furosemide (LASIX) tablet 40 mg 40 mg, oral, Every 12 hours, First dose (after last modification) on Sat11/12/24 at 2100, Look-alike/sound-alike medication - verify indication for use. 2014 (Given - Provider: Reshma Contreras RN) 0803 (Given - Provider: Kathy Christine RN)2043 (Given - Provider: Abiola Bustillo RN) 0816 (Given - Provider: Sunita Kirby, RN)2100 (Due) insulin glargine (LANTUS, SEMGLEE) injection pen 60 Units 60 Units, subcutaneous, Daily, First dose on Sat11/09/24 at 0900, Look-alike/sound-alike medication - verify indication for use. Prime with 2 units of insulin prior to administration. Basal (long acting) insulin for subcutaneous administration only. Do not mix with any other insulin. Pre-filled pens stable 28 days at room temperature. 0758 (Given - Provider: Ermias Borrego RN)0900 (Canceled Entry - Provider: Ermias Borrego RN) 0804 (Given - Provider: Kathy Christine RN) 0900 (Due) insulin lispro (HumaLOG) injection 2-10 Units 2-10 Units, subcutaneous, 4 times daily with meals and nightly, First dose on Sat11/08/24 at 1745, Daytime hyperglycemia dosing. For blood glucose 151-200 mg/dL, give 2 units. For blood glucose 201-250 mg/dL, give 4 units. For blood glucose 251-300 mg/dL, give 6 units. For blood glucose 301-350 mg/dL, give 8 units. For blood glucose 351-400 mg/dL, give 10 units. Give even if NPO or meals skipped. Do NOT give more often then every 4 hours when NPO. Notify prescriber if blood glucose greater than 400 mg/dL. Look-alike/sound-alike medication - verify indication for use. Prime with 2 units of insulin prior to administration. Prandial/supplemental Insulin. Pre-filled pens stable 28 days at room temperature. Insulin lispro should be administered within 15 minutes before or immediately after a meal. 0800 (Hold - Provider: Ermias Borrego RN - Reason: Contraindicated - Comment: glucose 73)1200 (Not Given - Provider: Ermias Borrego RN - Reason: Contraindicated - Comment: glucose 147)1704 (Given - Provider: Ermias Borrego, KIANNA)2020 (Given - Provider: Reshma Contreras RN)2200 (Not Given - Provider: Reshma Contreras RN - Reason: Other) 0800 (Not Given - Provider: Kathy Christine RN - Reason: Order parameters not met)1216 (Given - Provider: Kathy Christine RN)1642 (Given - Provider: Kathy Christine RN)2241 (Given - Provider: Abiola Bustillo RN - Comment: fsbs 243) 0800 (Not Given - Provider: Sunita Kirby RN - Reason: Order parameters not met)1200 (Due)1700 (Due)2200 (Due) levothyroxine (SYNTHROID, LEVOTHROID) tablet 25 mcg 25 mcg, oral, Daily, First dose (after last modification) on Sat11/09/24 at 0600, Look-alike/sound-alike medication. Verify indication for use Administer on empty stomach at least ONE hour before or TWO hours after food Enteral Feeding: For 7 days or less of tube feeding- do NOT hold tube feedings, after 7 days- hold tube feedings ONE hour before and ONE hour after administration DOES NOT APPLY TO NEONATES Monitor thyroid function tests weekly 0519 (Given - Provider: Maricel Alejandro RN) 0536 (Given - Provider: Roslyn Herrera RN) 0437 (Given - Provider: Abiola Bustillo, KIANNA) pantoprazole (PROTONIX) EC tablet 40 mg 40 mg, oral, Every morning before breakfast, First dose on Sat11/08/24 at 1745, Look-alike/sound-alike medication - verify indication for use. If patient is receiving enteral feeding, consider alternative PPI or continue IV pantoprazole until the delayed-release tablet can be taken orally, Indication: GERD 0519 (Given - Provider: Maricel Alejandro RN)0700 (Canceled Entry - Provider: Maricel Alejandro RN) 0536 (Given - Provider: Roslyn Herrera, KIANNA) 0627 (Given - Provider: Abiola Bustillo, RN) potassium chloride (KLOR-CON M 20) CR tablet 20 mEq 20 mEq, oral, Daily, First dose on Sat11/13/24 at 1130, Hold for potassium level greater than 4.2 this need to be given regardless of the electrolytes replacement scale Do not crush or chew. 1212 (Given - Provider: Kathy Christine RN) 0816 (Given - Provider: Sunita Kirby, RN) pregabalin (LYRICA) capsule 25 mg 25 mg, oral, 2 times daily, First dose on Sat11/10/24 at 1200, Look-alike/sound-alike medication. Verify indication for use 0801 (Given - Provider: Ermias Borrego, KIANNA)2014 (Given - Provider: Reshma Contreras, KIANNA) 0803 (Given - Provider: Kathy Christine RN)204 (Given - Provider: Abiola Bustillo, KIANNA) 0816 (Given - Provider: Sunita Kirby, RN)2100 (Due) sodium chloride 0.9 % flush 10 mL(Linked Group 2) 10 mL, intravenous, Every 12 hours, First dose on Sat11/13/24 at 1115, PICC line. Administer 10 mL per lumen; 10 mL total (for single lumen flush) 1640 (Given - Provider: Kathy Christine RN)2315 (Not Given - Provider: Abiola Bustillo, RN - Reason: IV infusing) 1115 (Due)2315 (Due) sodium chloride 0.9 % flush 3 mL 3 mL, intravenous, Every 12 hours scheduled, First dose on Sat11/08/24 at 2100 0802 (Given - Provider: Ermias Borrego RN)2100 (Not Given - Provider: Reshma Contreras RN - Reason: IV infusing) 0817 (Given - Provider: Kathy Christine RN)2050 (Not Given - Provider: Abiola Bustillo RN - Reason: IV infusing) 0817 (Given - Provider: Sunita Kirby RN)2100 (Due) spironolactone (ALDACTONE) tablet 25 mg 25 mg, oral, Daily, First dose on Sat11/13/24 at 1130, Hold for systolic blood pressure less than 90. Hold for potassium level greater than 4.4 1212 (Given - Provider: Kathy Christine RN) 0816 (Given - Provider: Sunita Kirby RN) tamsulosin (FLOMAX) 24 hr capsule 0.4 mg 0.4 mg, oral, Nightly, First dose on Sat11/13/24 at 2200, Do not crush or chew. 2044 (Given - Provider: Abiola Bustillo RN) 2200 (Due) PRN Medication Order 11/12/2024 11/13/2024 11/14/2024 acetaminophen (TYLENOL) tablet 650 mg 650 mg, oral, Every 6 hours PRN, mild pain - pain scale 1-3, headaches, temperature greater than 38 C, Temperature greater than 38.3 C, Starting on Sat11/08/24 at 1737, [Warning: Total Acetaminophen not to exceed more than 4 grams (4000 mg) in 24 hours] 1024 (Return to Cabinet - Provider: Ermias Borrego RN) calcium gluconate 3,000 mg in sodium chloride 0.9 % 100 mL IVPB 3,000 mg, intravenous, at 43.3 mL/hr, Administer over 3 Hours, As needed, ionized calcium 3.5 to 3.9 mg/dL, Starting on Sat11/13/24 at 0936, IV Administration of calcium via a central or deep vein preferred. Avoid administration in small hand veins VESICANT (RED) calcium gluconate 4,000 mg in sodium chloride 0.9 % 250 mL IVPB 4,000 mg, intravenous, at 72.5 mL/hr, Administer over 4 Hours, As needed, ionized calcium 3.4 mg/dL or less, Starting on Sat11/13/24 at 0936, IV administration of calcium via a central or deep vein is preferred. Avoid administration in small hand veins. VESICANT (RED) calcium gluconate IVPB 2000 mg/100 mL (20 mg/mL premix) 2,000 mg, intravenous, at 50 mL/hr, Administer over 2 Hours, As needed, ionized calcium 4 to 4.3 mg/dL, Starting on Sat11/13/24 at 0936, IV Administration of calcium via a central or deep vein preferred. Avoid administration in small hand veins VESICANT (RED) dextrose (GLUTOSE) 40 % gel 15 g 15 g, oral, As needed, low blood sugar, blood glucose less than 70 mg/dL, Starting on Sat11/08/24 at 1737, If patient conscious and taking PO. If blood glucose is not greater than 70 mg/dL after initial treatment, repeat treatment. dextrose 5 % (D5W) infusion 100 mL/hr, intravenous, Continuous PRN, blood glucose less than 70 mg/dL, Starting on Sat11/08/24 at 1737, Use immediately following dextrose 50% or glucagon treatment for patients who are unconscious or NPO. Contact prescriber for additional orders. If blood glucose is not greater than 70 mg/dL after initial treatment, repeat treatment. dextrose 50 % in water (D50W) 50% solution 25 mL 25 mL, intravenous, As needed, low blood sugar, blood glucose less than 70 mg/dL and unconscious or NPO with IV access, Starting on Sat11/08/24 at 1737, Push over 1-3 minutes STAT. If conscious and not NPO, immediately follow with meal tray or high protein (7 grams) snack if tray not available. If NPO, initiate 5% dextrose in water at 100 mL/hr and contact prescriber for additional orders. If blood glucose is not greater than 70 mg/dL after initial treatment, repeat treatment. VESICANT (RED) Warning: HYPERTONIC solution. gadoteridoL (PROHANCE) injection 10 mmol 20 mL 10 mmol (rounded from 10.31 mmol = 0.1 mmol/kg 103.1 kg), intravenous, Once in imaging, contrast, MRI, Starting on Sat11/10/24 at 1144, For 1 dose, VESICANT (RED), Indications: magnetic resonance imaging glucagon HCL injection 1 mg 1 mg, intramuscular, As needed, low blood sugar, blood glucose less than 70 mg/dL and unconscious or NPO without IV access., Starting on Sat11/08/24 at 1737, If conscious and not NPO, immediately follow with meal tray or high protein (7Grams) snack if tray not available. If NPO, initiate IV 5% Dextrose/Water at 100 mL/hr and contact prescriber for additional orders. If blood glucose is not greater than 70 mg/dL after initial treatment, repeat treatment. HYDROcodone-acetaminophe n (NORCO) 5-325 mg per tablet 1 tablet 1 tablet, oral, Every 6 hours PRN, moderate pain - pain scale 4-6, severe pain - pain scale 7-10, Starting on Sat11/09/24 at 0535, Look-alike/sound-alike medication - verify indication for use. 0633 (Given - Provider: Maricel Alejandro, RN)1219 (Given - Provider: Ermias Borrego, KIANNA)2015 (Given - Provider: Reshma Contreras, KIANNA) 1212 (Given - Provider: Kathy Christine, KIANNA)195 (Given - Provider: Abiola Bustillo, KIANNA) 0437 (Given - Provider: Abiola Bustillo, KIANNA) LORazepam (ATIVAN) tablet 0.5 mg 0.5 mg, oral, Daily PRN, anxiety, Starting on Sat11/08/24 at 1737, Look-alike/sound-alike medication - verify indication for use. 1338 (Given - Provider: Radny Pineda, KIANNA) magnesium sulfate IVPB 2000 mg/50 mL in iso-osmotic water (40 mg/mL premix) 2,000 mg, intravenous, at 25 mL/hr, Administer over 120 Minutes, As needed, Magnesium level 1.7 to 1.9 mg/dL, or Ionized Magnesium level 0.45 to 0.5 mmol/L., Starting on Sat11/13/24 at 0935, Recheck magnesium level 4 hours after infusion complete. With each magnesium result continue the replacement orders as needed. magnesium sulfate IVPB 4000 mg/100 mL in iso-osmotic water (40 mg/mL premix) 4,000 mg, intravenous, at 25 mL/hr, Administer over 240 Minutes, As needed, Magnesium level 1.6 mg/dL or less, or Ionized Magnesium level 0.44 mmol/L or less, Starting on Sat11/13/24 at 0935, Recheck magnesium level 4 hours after infusion complete. With each magnesium result continue the replacement orders as needed. ondansetron (PF) (ZOFRAN) injection 4 mg 4 mg, intravenous, Every 6 hours PRN, nausea, vomiting, Starting on Sat11/08/24 at 1737, Intravenous administration preferred to be given over 2-5 minutes. potassium chloride (KAYCIEL) 20 mEq/15 mL solution 20-40 mEq(Linked Group 3) 20-40 mEq, oral, As needed, Potassium Supplementation, Starting on Sat11/13/24 at 0935, Progress to oral potassium replacement when patient tolerating oral intake. If dose administered, recheck potassium level 4 hours after last dose. For potassium level 3.4 to 3.8 mmol/L and GFR less than 30 mL/min or dialysis=20 mEq. For potassium level 3.1 to 3.3 mmol/L and GFR less than 30 mL/min or dialysis=30 mEq. For potassium level 3 mmol/L or less and GFR less than 30 mL/min or dialysis=40 mEq. Must dilute before use - Mix in 3-8 ounces of water or juice before administration When administering in feeding tube, flush before and after per policy and monitor potassium levels 1040 (See Alternative - Provider: Kathy Christine RN) potassium chloride (KLOR-CON M 20) CR tablet 20-40 mEq(Linked Group 3) 20-40 mEq, oral, As needed, Potassium Supplementation, Starting on Sat11/13/24 at 0935, Progress to oral potassium replacement when patient tolerating oral intake. If dose administered, recheck potassium level 4 hours after last dose. For potassium level 3.4 to 3.8 mmol/L and GFR less than 30 mL/min or dialysis=20 mEq. For potassium level 3.1 to 3.3 mmol/L and GFR less than 30 mL/min or dialysis=30 mEq. For potassium level 3 mmol/L or less and GFR less than 30 mL/min or dialysis=40 mEq. Do not crush or chew. 1040 (Given - Provider: Kathy Christine RN) potassium chloride IVPB 10 mEq/100 mL in water (0.1 mEq/mL premix)(Linked Group 3) 10 mEq, intravenous, at 100 mL/hr, Administer over 60 Minutes, As needed, POTASSIUM REPLACEMENT, Starting on Sat11/13/24 at 0935, IV if unable to use oral/enteral with the current dosing strategies Potassium level 3 mmol/L or less administer Potassium Chloride 40 mEq Potassium level 3.1 to 3.3 mmol/L administer Potassium Chloride 30 mEq Potassium level 3.4 to 3.8 mmol/L administer Potassium Chloride 20 mEq Use central line when applicable. Recheck potassium level 1 hour after total IVPB infusion complete, With each potassium result continue the replacement orders as needed VESICANT (YELLOW) Infuse each 10 mEq over a minimum of 1 hour. 1040 (See Alternative - Provider: Kathy Christine RN) sod phos di, mono-K phos mono (K-PHOS NEUTRAL) 250 mg tablet 2 tablet(Linked Group 4) 2 tablet, oral, As needed, for phosphorus level 2.3 mg/dL or less., Starting on Sat11/13/24 at 0936, If dose administered, recheck phosphorus level 4 hours after last dose. Look-alike/sound-alike medication - verify indication for use. Give with a full glass of water. sodium chloride 0.9 % flush 10 mL 10 mL, intravenous, Once in imaging, line care, MRI, Starting on Sat11/10/24 at 1144, For 1 dose sodium chloride 0.9 % flush 10 mL(Linked Group 2) 10 mL, intravenous, As needed, line care, Starting on Sat11/13/24 at 1101, PICC line. Administer 10 mL to each lumen before and after each use. Administer 10 mL per lumen; 10 mL total (for single lumen flush) 2047 (Given - Provider: Abiola Bustillo RN) 005 (Given - Provider: Abiola Bustillo RN) sodium chloride 0.9 % flush 20 mL(Linked Group 2) 20 mL, intravenous, As needed, line care, Starting on Sat11/13/24 at 1101, PICC line. Administer 20 mL to each lumen after lab draws, blood infusion, and meds known to precipitate. Administer 20 mL per lumen; 20 mL total (for single lumen flush) sodium chloride 0.9 % flush 3 mL 3 mL, intravenous, As needed, line care, before and after each intermittent use, Starting on Sat11/08/24 at 1737 sodium chloride 0.9 % flush bag 25 mL, intravenous, at 100 mL/hr, Administer over 15 Minutes, As needed, line care, line care after IVPB administration, Starting on Sat11/08/24 at 1737 2049 (Restarted - Provider: Abiola Bustillo, KIANNA)2050 (Paused - Provider: Abiola Bustillo RN) 50 (Restarted - Provider: Abiola Bustillo, KIANNA)106 (Stop Bag - Provider: Abiola Bustillo, RN) sodium chloride 0.9 % infusion 20 mL/hr, intravenous, Continuous PRN, to maintain patency of lines, Starting on Sat11/08/24 at 1737 sodium phosphate 20 mmol in sodium chloride 0.9 % 250 mL IVPB(Linked Group 4) 20 mmol, intravenous, at 42.8 mL/hr, Administer over 6 Hours, As needed, for phosphorus level 2.3 mg/dL or less, Starting on Sat11/13/24 at 0936, Administer over 6 hours via dedicated line (peripheral line). If administered, recheck phosphorus level 4 hours after infusion complete. zolpidem (AMBIEN) tablet 10 mg 10 mg, oral, Nightly PRN, sleep, Starting on Sat11/08/24 at 1737, Look-alike/sound-alike medication - verify indication for use. 0003 (Given - Provider: Reshma Contreras RN) 0009 (Given - Provider: Abiola Bustillo RN) Linked Groups Order Group 1: cefEPime (MAXIPIME) IVPB 2000 mg/50 mL in dextrose 5% duplex (40 mg/mL premix) (COMPLETED) 2,000 mg, intravenous, at 100 mL/hr, Administer over 30 Minutes, Once, On Sat11/10/24 at 2100, For 1 dose, Indication: Skin and soft tissue infection Followed by cefEPime (MAXIPIME) IVPB 1000 mg/50 mL in dextrose 5% duplex (20 mg/mL premix)Jump to med 1,000 mg, intravenous, at 12.5 mL/hr, Administer over 4 Hours, Every 24 hours, First dose on Sat11/11/24 at 2100, Indication: Skin and soft tissue infection Group 2: Consult PICC nurse - Midline () Reason for consult? Insert Midline IV, Indication: Duration of therapy 14 days or less, Number of Lumen(s): 1 Lumen And sodium chloride 0.9 % flush 10 mLJump to med 10 mL, intravenous, Every 12 hours, First dose on Sat11/13/24 at 1115, PICC line. Administer 10 mL per lumen; 10 mL total (for single lumen flush) And sodium chloride 0.9 % flush 10 mLJump to med 10 mL, intravenous, As needed, line care, Starting on Sat11/13/24 at 1101, PICC line. Administer 10 mL to each lumen before and after each use. Administer 10 mL per lumen; 10 mL total (for single lumen flush) And sodium chloride 0.9 % flush 20 mLJump to med 20 mL, intravenous, As needed, line care, Starting on Sat11/13/24 at 1101, PICC line. Administer 20 mL to each lumen after lab draws, blood infusion, and meds known to precipitate. Administer 20 mL per lumen; 20 mL total (for single lumen flush) Group 3: potassium chloride (KLOR-CON M 20) CR tablet 20-40 mEqJump to med 20-40 mEq, oral, As needed, Potassium Supplementation, Starting on Sat11/13/24 at 0935, Progress to oral potassium replacement when patient tolerating oral intake. If dose administered, recheck potassium level 4 hours after last dose. For potassium level 3.4 to 3.8 mmol/L and GFR less than 30 mL/min or dialysis=20 mEq. For potassium level 3.1 to 3.3 mmol/L and GFR less than 30 mL/min or dialysis=30 mEq. For potassium level 3 mmol/L or less and GFR less than 30 mL/min or dialysis=40 mEq. Do not crush or chew. Or potassium chloride (KAYCIEL) 20 mEq/15 mL solution 20-40 mEqJump to med 20-40 mEq, oral, As needed, Potassium Supplementation, Starting on Sat11/13/24 at 0935, Progress to oral potassium replacement when patient tolerating oral intake. If dose administered, recheck potassium level 4 hours after last dose. For potassium level 3.4 to 3.8 mmol/L and GFR less than 30 mL/min or dialysis=20 mEq. For potassium level 3.1 to 3.3 mmol/L and GFR less than 30 mL/min or dialysis=30 mEq. For potassium level 3 mmol/L or less and GFR less than 30 mL/min or dialysis=40 mEq. Must dilute before use - Mix in 3-8 ounces of water or juice before administration When administering in feeding tube, flush before and after per policy and monitor potassium levels Or potassium chloride IVPB 10 mEq/100 mL in water (0.1 mEq/mL premix)Jump to med 10 mEq, intravenous, at 100 mL/hr, Administer over 60 Minutes, As needed, POTASSIUM REPLACEMENT, Starting on Sat11/13/24 at 0935, IV if unable to use oral/enteral with the current dosing strategies Potassium level 3 mmol/L or less administer Potassium Chloride 40 mEq Potassium level 3.1 to 3.3 mmol/L administer Potassium Chloride 30 mEq Potassium level 3.4 to 3.8 mmol/L administer Potassium Chloride 20 mEq Use central line when applicable. Recheck potassium level 1 hour after total IVPB infusion complete, With each potassium result continue the replacement orders as needed VESICANT (YELLOW) Infuse each 10 mEq over a minimum of 1 hour. Group 4: sodium phosphate 20 mmol in sodium chloride 0.9 % 250 mL IVPBJump to med 20 mmol, intravenous, at 42.8 mL/hr, Administer over 6 Hours, As needed, for phosphorus level 2.3 mg/dL or less, Starting on Sat11/13/24 at 0936, Administer over 6 hours via dedicated line (peripheral line). If administered, recheck phosphorus level 4 hours after infusion complete. Or sodium phosphate 20 mmol in sodium chloride 0.9 % 100 mL IVPB (CANCELED) 20 mmol, intravenous, at 26.7 mL/hr, Administer over 4 Hours, As needed, for phosphorus level 2.3 mg/dL or less., Starting on Sat11/13/24 at 0936, Administer over 4 hours via dedicated line (central line). If administered, recheck phosphorus level 4 hours after infusion complete. Infuse using central line access. Or sod phos di, mono-K phos mono (K-PHOS NEUTRAL) 250 mg tablet 2 tabletJump to med 2 tablet, oral, As needed, for phosphorus level 2.3 mg/dL or less., Starting on Sat11/13/24 at 0936, If dose administered, recheck phosphorus level 4 hours after last dose. Look-alike/sound-alike medication - verify indication for use. Give with a full glass of water. FOR RECORDS PERTAINING TO PATIENTS WHO ARE OR HAVE BEEN ENROLLED IN A CHEMICAL DEPENDENCY/SUBSTANCEABUSE PROGRAM, SOME INFORMATION MAY BE OMITTED. This clinical summary was aggregated from multiple sources. Caution should be exercised in using it in the provision of clinical care. This summary normalizes information from multiple sources, and as a consequence, information in this document may materially change the coding, format and clinical context of patient data. In addition, data may be omitted in some cases. CLINICAL DECISIONS SHOULD BE BASED ON THE PRIMARY CLINICAL RECORDS. [facility]. provides no warranty or guarantee of the accuracy or completeness of information in this document.
== END 2025-01-29 11:26 | disposition home or self-care (01) ==
LOC: LAB 11:25
PROVIDERS: Visit Provider Internal Medicine
DX: R41.82 Altered mental status, unspecified (principal)
CPT/HCPCS: 36415; 80048

== ENCOUNTER 2025-03-30 15:06 | Outpatient (REF) | payer MEDICARE, BC, SELFPAY ==
--- OUTSIDE RECORDS SUMMARY | 2024-11-26 11:00 | XMS_ITS ---
Author Organization [facility] vices Address [address], [place] [id number] Care Team Providers Care News Librarian Name Role Phone Derrell Bridgessha Primary Care Provider REASON FOR VISIT 3 month Chronic pain, Insomnia Social History Sex Assigned At : Social History Observation Description Sex Assigned At Female Encounters Encounter Location Date Provider Diagnosis Main [address] [place] [id number] 11/26/2024 Angeline Bridges Plan Of Treatment Next Appt Details Provider Name:Angeline Bridges, 04/13/2025 01:15:00 PM, [address] [place], [id number], Progress Notes * Rupa GUTIERREZ MDOB: [birth year] (84 yo F)Acc No.[id number]:11/26/2024 Medical Note Patient: Heena Rupa BADILLO Provider: Seth Bridges MD :1940 A ge:83 Y S ex:Female Date:11/26/2024 Address[address] [place], [id number] Subjective: * Chief Complaints: * 1 . 3 month Chronic pain, Insomnia. * Medical History: Objective: * Vitals: Assessment: Plan: * Treatment: * Billing Information: * Visit Code: * Procedure Codes: * Electronic signature of Víctor Bridges MD on 03/30/2025 at 03:10 PM EDT Sign off status: Pending * Provider: Seth Bridges MD Date: 0 11/26/2024 Generated for Jm zarate/Ori/Jey on: 1 03:10 PM EDT
--- OUTSIDE RECORDS SUMMARY | 2025-03-30 15:10 | XMS_ITS | Encounter Summary ---
Author Organization [facility] tem Address [id number] [address] [place] [address] Care Team Providers Care Cadence Specialists Name Role Phone Angeline Bridges MD Primary Care Provider [phone] Encounter Details Date Type Department Care Team (Late st Contact Info) Description 09/04/2023 Orders Only [facility] [address] [place] [address] Hussain Verde CMA Social History Tobacco Use Types Packs/Day Years Used Date Smoking Tobacco: Former Smokeless Tobacco: Never Alcohol Use Standard Drinks/Week Comments Never 0 (1 standard drink = 0.6 oz pur e alcohol) AUDIT-C Answer Date Recorded Q1: How often do you have a drink containing alc ohol? Never 11/03/2019 Average Number of Drinks Not on file 020 Frequency of Binge Drinking Not on file 10/15 Childcare Answer Date Recorded Childcare Unknown 11/26/2018 Employment Answer Date Recorded Employment Unknown 11/26/2018 Hunger Screening Answer Date Recorded Within the past 12 months we worried whether our food would run out before we got money to buy more. Never True 06/13/2023 Within the past 12 months th e food we bought just didn't last and we didn't have money to get more. Never True 06/13/2023 Purpose - Life Answer Date Recorded Purpose and direction in life Unknown Comments No Sex and Gender Information Value Date Recorded Sex Assigned at Not on file Legal Sex Female 11:26 AM EDT Gender Identity Not on file Sexual Orientation Not on file documented as of this encounter Plan of Treatment Upcoming Encounters Date Type Department Care Team (Late st Contact Info) Description 04/14/2025 10:00 AM EDT Office Visit [facility] [address] [place] [address] [place] [address] Mena Bender PA [facility] [place] [address] documented as of this encounter Visit Diagnoses Not on filedocumented in this encounter Care Teams Cadence Specialists Relationship Specialty Start Date End Date Angeline Bridges MD [address] [place], [place] [id number] PCP - General Internal Medicine 11/08/24 documented as of this encounter
--- OUTSIDE RECORDS SUMMARY | 2025-03-30 15:10 | XMS_ITS | Encounter Summary ---
Author Organization [facility] [employer] [facility] tem Address [id number] [address] [place] [address] Care Team Providers Care Salon Supervisor Name Role Phone Angeline Bridges MD Primary Care Provider [phone] Encounter Details Date Type Department Care Team (Late st Contact Info) Description 10/27/2024 Documentation [facility] [address] [place] [address] Tania Lee, KIANNA Social History Tobacco Use Types Packs/Day Years Used Date Smoking Tobacco: Former Smokeless Tobacco: Never Alcohol Use Standard Drinks/Week Comments Never 0 (1 standard drink = 0.6 oz pur e alcohol) [facility] Utilities Answer Date Recorded In the past 12 months has [employer], gas, oil, or water [employer] threatened to shut off services in your home? No 10/23/2024 AUDIT-C Answer Date Recorded Q1: How often do you have a drink containing alc ohol? Never 11/03/2019 Average Number of Drinks Not on file 020 Frequency of Binge Drinking Not on file 10/15 PRAPARE - Transportation Answer Date Re corded In the past 12 months, has l ack of transportation kept you from medical appointments or from getting medications? No 02/2025 In the past 12 months, has l ack of transportation kept you from meetings, work, or from getting things needed for daily living? No 10/23/2024 Housing Instability Answer Date Recorde d Are you worried or concerned that in the next two months you may not have stable housing that you own, rent or stay in as a part of a household? No 10/23/2024 Childcare Answer Date Recorded Childcare Unknown 11/26/2018 Employment Answer Date Recorded Employment Unknown 11/26/2018 Hunger Screening Answer Date Recorded Within the past 12 months we worried whether our food would run out before we got money to buy more. Never True 10/26/2024 Within the past 12 months th e food we bought just didn't last and we didn't have money to get more. Never True 10/26/2024 Purpose - Life Answer Date Recorded Purpose [...] Office Visit [facility] [address] [place] [address] [place] [address] Mena Bender PA [address] [place] [address] documented as of this encounter Visit Diagnoses Not on filedocumented in this encounter Care Teams Salon Supervisor Relationship Specialty Start Date End Date Angeline Bridges MD [address] [place] [address] PCP - General Internal Medicine 11/08/24 documented as of this encounter
--- OUTSIDE RECORDS SUMMARY | 2025-03-30 15:10 | XMS_ITS | Clinical Summary ---
Author Organization [facility] Address [address] [place] [address] Care Team Providers Care Mechanical Cad Drafter Name Role Phone Marta Dee MD Primary Care Provider [phone] Allergies Active Allergy Reactions Criticality Noted Date Comments Capsaicin Unknown 05/27/2023 Iodinated Contrast Media Unknown 05/27/2023 Iodine Rash Low 10/12/2015 Other Reaction(s): Rash Comments: IV DYE Levofloxacin Unknown 05/27/2023 Lisinopril Cough 04/03/2012 Propoxyphene Unknown 05/27/2023 Ropinirole Unknown 06/08/2024 Medications insulin detemir (Levemir) 100 UNIT/ML injection INJECT 50 UNITS UNDER THE SKIN EVERY MORNING for 80 Active LORazepam (Ativan) 0.5 MG tablet 1 (one) time each day at the same time 3 Active losartan (Cozaar) 100 MG tablet Take 100 mg by mouth in the morning. 3 Active pantoprazole (ProtoNix) 40 MG EC tablet Take 40 mg by mouth in the morning. 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 DX: E11.59. Active Insulin Aspart (NovoLOG) 100 UNIT/ML solution Inject as directed 2 (two) times a day 16 Units Breakfast, 20 Units dinner Active carvedilol (Coreg) 25 MG tablet Take 1 tablet by mouth in the morning and 1 tablet in the evening. Take with meals. 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 TAKE 1 TABLET BY MOUTH DAILY FOR 5 DAYS OF THE WEEK, AND 2 TABLETS DAILY FOR THE OTHER 2 DAYS 120 tablet 1 5 Active Encounters Date Type Department Care Team Description 02/04/2025 Abstract [facility] [address] [place] [phone] Marta Dee MD 01/29/2025 Clinisync Result Encounter [facility] External Department Unsolicited Jose Rogers MD 01/10/2025 Refill [facility] [address] [place] [phone] Will Enamorado MD 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 from Last 3 Months Immunizations Immunization Administration Dates Next Due Influenza, injectable, MDCK, preservative free, quadrivalent 06/24/2023,04/26/2020,04/29/2018 Influenza, injectable, quadr ivalent, preservative free 05/17/2022,08/10/2021 Pneumococcal Polysaccharide PPSV23 07/14/2012, Family History Medical History Relation Name Comments [place] syndrome Daughter x 1 Heart attack Father Cancer Mother Ovarian cancer Mother Borderline Mental Retardation Son x 1 Relation Name Status Comments Daughter x 1 Alive Father Mother Sister x 2 Son x 1 Alive Social History Tobacco Use Types Packs/Day Years Used Date Smoking Tobacco: Former Cigarettes Smokeless Tobacco: Never Tobacco Cessation:Counseling Given: Not Answered Alcohol Use Standard Drinks/Week Comments Never 0 (1 standard drink = 0.6 oz pur e alcohol) Comments Unknown Sex and Gender Information Value Date Recorded Sex Assigned at Not on file Legal Sex Female 7:33 PM EDT Gender Identity Not on file Sexual Orientation Not on file Last Filed Vital Signs Vital Sign Reading Time Taken Comments Blood Pressure - - Pulse - - Temperature - - Respiratory Rate - - Oxygen Saturation - - Inhaled Oxygen Concentration - - Weight 86.2 kg (190 lb) 02/18/2024 3:21 PM EDT Height 149.9 cm (4' 11 ) 02/18/2024 3:21 PM EDT Body Mass Index 38.38 02/18/2024 3:21 PM EDT Plan of Treatment Not on file Procedures Procedure Name Priority Date/Time Associated Diagnosis Comments ALL BASIC METABOLIC PANEL Routine 01/29/2025 10:55 AM EDT from Last 3 Months Results * (ABNORMAL) ALL BASIC METABOLIC PANEL (01/29/2025 10:55 AM EDT) SODIUM 143 136 - 145 mmol/L [facility] POTASSIUM 4.2 3.5 - 5.1 mmol/L [facility] CHLORIDE 107 98 - 107 mmol/L [facility] CARBON DIOXIDE 31.3 21.0 - 32.0 mmol/L [facility] ANION GAP 8.9 [facility] GLUCOSE 108(H) 74 - 106 mg/dL [facility] BLOOD UREA NITROGEN 35.0(H) 7.0 - 18.0 mg/dL [facility] CREATININE 2.10(H) 0.55 - 1.02 mg/dL [facility] EGFR-AF [place] 27(L) >=60 mL/min/1.7 3m 2 [facility] EGFR-NON AF [place] 22(L) >=60 mL/min/1.7 3m 2 [facility] BUN CREATININE RATIO 16.7 [facility] CALCIUM 9.1 8.5 - 10.1 mg/dL [facility] 01/29/2025 10:5 5 AM EDT 01/29/2025 1:00 PM EDT Narrative [facility] - 01/29/2025 1:45 PM EDT us Jose Rogers MD [facility] Final Result [facility] from Last 3 Months Insurance MEDICARE [facility] Care Teams Mechanical Cad Drafter Relationship Specialty Start Date End Date Marta Dee MD [address] [place] [address] PCP - General Pediatrics 05/27/23
--- OUTSIDE RECORDS SUMMARY | 2025-03-30 15:10 | XMS_ITS | Encounter Summary ---
Author Organization [facility] Address [address] [place] [address] Care Team Providers Care Division Service Manager Name Role Phone Marta Dee MD Primary Care Provider [phone] Encounter Details Date Type Department Care Team (Late st Contact Info) Description 12/01/2024 Abstract [facility] [address] [place] [phone] Unallocated, [facility]oms Provider, [address] [place] [address] Social History Tobacco Use Types Packs/Day Years Used Date Smoking Tobacco: Former Cigarettes Smokeless Tobacco: Never Alcohol Use Standard Drinks/Week Comments Never 0 (1 standard drink = 0.6 oz pur e alcohol) Comments Unknown Sex and Gender Information Value Date Recorded Sex Assigned at Not on file Legal Sex Female 7:33 PM EDT Gender Identity Not on file Sexual Orientation Not on file documented as of this encounter Plan of Treatment Not on file documented as of this encounter Visit Diagnoses Not on filedocumented in this encounter Care Teams Division Service Manager Relationship Specialty Start Date End Date Marta Dee MD [address] [place], [place] [id number] PCP - General Pediatrics 05/27/23 documented as of this encounter
--- OUTSIDE RECORDS SUMMARY | 2025-03-30 15:10 | XMS_ITS | Encounter Summary ---
Author Organization [facility] Address [address] [place] [address] Care Team Providers Care Instrument Setter Name Role Phone Marta Dee MD Primary Care Provider [phone] Encounter Details Date Type Department Care Team (Late st Contact Info) Description 02/04/2025 [facility] [address] [place] [id number] Marta Dee MD [address] [place], [place] [phone] Social History Tobacco Use Types Packs/Day Years [...] on filedocumented in this encounter Care Teams Instrument Setter Relationship Specialty Start Date End Date Marta Dee MD [address] [place] [address] PCP - General Pediatrics 05/27/23 documented as of this encounter
--- OUTSIDE RECORDS SUMMARY | 2025-03-30 15:10 | XMS_ITS | Encounter Summary ---
Author Organization [facility] [employer] Address [facility] [id number] [address] [place] [address] Care Team Providers Care Bicycle Taxi Driver Name Role Phone Angeline Bridges MD Primary Care Provider [phone] Encounter Details Date Type Department Care Team (Late st Contact Info) Description 10/27/2024 Orders Only [facility] [address] [facility] [address] [place] [address] Margot Leiva APRN-SALES ASSOCIATE [address] [place] [address] Social History Tobacco Use Types Packs/Day Years Used Date Smoking Tobacco: Former Smokeless Tobacco: Never Alcohol Use Standard Drinks/Week Comments Never 0 (1 standard drink = 0.6 oz pur e alcohol) [facility] Utilities Answer Date Recorded In the past 12 months has th e electric, gas, oil, or water company threatened to shut [...] Office Visit [facility] [address] [place] [address] [place] [phone] Mena Bender I, PA [address] [place] [address] documented as of this encounter Visit Diagnoses Not on filedocumented in this encounter Care Teams Bicycle Taxi Driver Relationship Specialty Start Date End Date Angeline Bridges MD [address] [place], [place] [id number] PCP - General Internal Medicine 11/08/24 documented as of this encounter
--- OUTSIDE RECORDS SUMMARY | 2025-03-30 15:10 | XMS_ITS | Clinical Summary ---
Author Organization [facility] Address [address] [place] [address] Phone Care Team Providers Care Tile Molder Name Role Phone Unavailable Primary Care Provider Unavailabl e Social History Tobacco Use Types Packs/Day Years Used Date Smoking Tobacco: Never Assessed Comments Unknown Sex and Gender Information Value Date Recorded Sex Assigned at Not on file Legal Sex Female 1:57 AM EST Gender Identity Not on file Sexual Orientation Not on file Plan of Treatment Not on file
--- OUTSIDE RECORDS SUMMARY | 2025-03-30 15:10 | XMS_ITS | Encounter Summary ---
Author Organization [employer] tem Address [id number] [address] [place] [address] Care Team Providers Care Storage Brine Worker Name Role Phone Angeline Bridges MD Primary Care Provider [phone] Encounter Details Date Type Department Care Team (Late st Contact Info) Description 11/13/2023 Telephone [facility] [address] [place] [address] Zulema Moseley LPN Social History Tobacco Use Types Packs/Day Years [...] Office Visit [facility] [address] [place] [address] [place] [address] [place] [address] Mena Bender PA [facility] [place] [address] documented as of this encounter Visit Diagnoses Not on filedocumented in this encounter Care Teams Storage Brine Worker Relationship Specialty Start Date End Date Angeline Bridges MD [address] [place], [place] [phone] PCP - General Internal Medicine 11/08/24 documented as of this encounter
--- OUTSIDE RECORDS SUMMARY | 2025-03-30 15:10 | XMS_ITS | Encounter Summary ---
Author Organization [facility] Address [address] [place] [address] Care Team Providers Care Crm Manager Name Role Phone Marta Dee MD Primary Care Provider [phone] Encounter Details Date Type Department Care Team (Late st Contact Info) Description 12/09/2024 Abstract [facility] [address] [place] [address] Unallocated, Noms Provider, [address] [place] [address] Social History Tobacco Use Types Packs/Day Years [...] on filedocumented in this encounter Care Teams Crm Manager Relationship Specialty Start Date End Date Marta Dee MD [address] [place], [place] [id number] PCP - General Pediatrics 05/27/23 documented as of this encounter
--- OUTSIDE RECORDS SUMMARY | 2025-03-30 15:10 | XMS_ITS | Clinical Summary ---
Author Organization [facility] Address [address] [place] [address] Care Team Providers Care Biodiesel Product Manager Name Role Phone None, Provided MD Primary Care Provider Unavaila ble Allergies Active Allergy Reactions Criticality Noted Date Comments Iodinated Contrast Media Rash,Unknown Low 7 Iodine Rash Low 10/12/2015 Other Reaction(s): Rash Comments: IV DYE Levofloxacin In D5w Rash Low 10/12/2015 Lisinopril Cough 04/03/2012 Medications acetaminophen-c odeine (Tylenol w/ Codeine #3) 300-30 mg tablet Take 1 tablet by mouth every 4 (four) hours if needed. 03/20/2024 Active furosemide (Lasix) 20 mg tablet Take by mouth. 07/31/2024 Active HYDROcodone-fahad taminophen ([place]) 5-325 mg tablet TAKE 1 TABLET BY MOUTH EVERY FOUR TO SIX HOURS NEEDED FOR PAIN FOR 5 DAYS NO DRIVING. 09/03/2024 Active INSULIN ASPART U-100 SUBQ Inject under the skin. Active insulin detemir (Levemir U-100 Insulin) 100 unit/mL injection vial INJECT 50 UNITS UNDER THE SKIN EVERY MORNING for 80 Active levothyroxine (Synthroid, Levoxyl) 25 mcg tablet Take 25 mcg by mouth in the morning. 10/12/2024 Active LORazepam (Ativan) 0.5 mg tablet Take 0.5 mg by mouth if needed each day. 04/09/2023 Active losartan (Cozaar) 100 mg tablet Take 1 tablet by mouth in the morning. 11/23/2022 Active magnesium oxide (Mag-Ox) 400 mg (241.3 mg magnesium) tablet Take 400 mg by mouth in the morning. 02/14/2024 Active Active Problems No known active problems Social History Tobacco Use Types Packs/Day Years Used Date Smoking Tobacco: Never Smokeless Tobacco: Never Tobacco Cessation:Counseling Given: Not Answered Alcohol Use Standard Drinks/Week Comments Never 0 (1 standard drink = 0.6 oz pur e alcohol) Humiliation, Afraid, Rape, and Kick questionnair e Answer Date Recorded Within the last year, have y ou been afraid of your partner or ex-partner? No 10/19/2024 Emotionally Abused Not on file 10/19/2024 Physically Abused Not on file 10/19/2024 Sexually Abused Not on file 10/19/2024 PHQ-2 Answer Date Recorded Patient Health Questionnaire-2 Score 0 12/17/2024 Comments Unknown Sex and Gender Information Value Date Recorded Sex Assigned at Female 10/19/2024 1:57 PM EDT Legal Sex Female 12:21 AM EDT Gender Identity Female 10/19/2024 1:57 PM EDT Sexual Orientation Not on file Last Filed Vital Signs Vital Sign Reading Time Taken Comments Blood Pressure - - Pulse - - Temperature - - Respiratory Rate - - Oxygen Saturation - - Inhaled Oxygen Concentration - - Weight 90.7 kg (200 lb) 12/17/2024 10:25 AM EDT Height 147.3 cm (4' 10 ) 12/17/2024 10:25 AM EDT Body Mass Index 41.8 12/17/2024 10:25 AM EDT Plan of Treatment Health Maintenance Due Date Last Done Comments Diabetes: Hemoglobin A1C 1940 Medicare Annual Wellness (AWV) 1940 Diabetes: Retinopathy Screening 1950 Diabetes: Urine Protein Screening 12/03/1959 Adult Tetanus 1962 Zoster Vaccines (1 of 2) 1990 Pneumococcal Vaccine: 50+ Years (2 of 2 - PCV) 07/14/2013 07/14/2012, 12/19/2011 COVID-19 Vaccine ( season) 2025 05/31/2021, 09/09/2020, 08/12/2020 Influenza Vaccine (#1) 2025 , 06/24/2023, 05/17/2022, Additional history exists Depression Screening 12/17/2025 12/17/2024 Fall Risk Screening 12/17/2025 12/17/2024 HIB Vaccines Aged Out No longer eligi ble based on patient's age to complete this topic HPV Vaccines Aged Out No longer eligi ble based on patient's age to complete this topic IPV Vaccines Aged Out No longer eligi ble based on patient's age to complete this topic Meningococcal B Vaccine Aged Out No l onger eligible based on patient's age to complete this topic Meningococcal Vaccine Aged Out No feng michell eligible based on patient's age to complete this topic Rotavirus Vaccines Aged Out No longer eligible based on patient's age to complete this topic Insurance MEDICARE [facility] Care Teams Biodiesel Product Manager Relationship Specialty Start Date End Date None, Provided, PCP - General 10/19/24
--- OUTSIDE RECORDS SUMMARY | 2025-03-30 15:11 | XMS_ITS | Encounter Summary ---
Author Organization [facility] [employer] Address [facility] [id number] [address] [place] [address] Care Team Providers Care Exhibit Electrician Name Role Phone Angeline Bridges MD Primary Care Provider [phone] Encounter Details Date Type Department Care Team (Late st Contact Info) Description 01/15/2022 Orders Only [facility] [address] [place] [address] External, Scanning Provider Social History Tobacco Use Types Packs/Day Years [...] Employment Answer Date Recorded Employment Unknown 11/26/2018 Purpose - Life Answer Date Recorded Purpose and direction in life Unknown Comments No Sex and Gender Information Value Date Recorded Sex Assigned at Not on file Legal Sex Female 11:26 AM EDT Gender Identity Not on file Sexual Orientation Not on file COVID-19 Exposure Response Date Recorded In the last month, have you been in contact with someone who was confirmed or suspected to have Coronavirus / COVID-19? No / Unsure 01/15/2022 1:03 PM EDT documented as of this encounter Plan of Treatment Upcoming Encounters Date Type Department Care Team (Late st Contact Info) Description 04/14/2025 10:00 AM EDT Office Visit [facility] [address] [place] [address] [place] [address] Mena Bender I, HERMELINDA [facility] [place] [address] documented as of this encounter Procedures Procedure Name Priority Date/Time Associated Diagnosis Comments ECHO COMPLETE WO CONTRAST Routine 10/04/2021 documented in this encounter Results * Echo complete W/O contrast (10/04/2021) Anatomical Region Laterality Modality Chest N/A Ultrasound us Scanning Provider External CV ECHO ORDERABLES Fi nal Result documented in this encounter Visit Diagnoses Not on filedocumented in this encounter Care Teams Exhibit Electrician Relationship Specialty Start Date End Date Angeline Bridges MD [address] [place] [address] PCP - General Internal Medicine 11/08/24 documented as of this encounter
--- OUTSIDE RECORDS SUMMARY | 2025-03-30 15:11 | XMS_ITS | Encounter Summary ---
Author Organization [employer] Address [id number] [address] [place] [address] Care Team Providers Care Performance Tester Name Role Phone Angeline Bridges MD Primary Care Provider [phone] Encounter Details Date Type Department Care Team (Late st Contact Info) Description 04/03/2022 Orders Only [facility] [address] [place] [address] Marcia Reynolds RMA Social History Tobacco Use Types Packs/Day Years [...] Visit [facility] [address] [place] [address] [place] [address] [place] [id number] Mena Bender I PA [facility] [place] [address] documented as of this encounter Visit Diagnoses Not on filedocumented in this encounter Care Teams Performance Tester Relationship Specialty Start Date End Date Angeline Bridges MD [address] [place], [place] [id number] PCP - General Internal Medicine 11/08/24 documented as of this encounter
--- OUTSIDE RECORDS SUMMARY | 2025-03-30 15:11 | XMS_ITS | Clinical Summary ---
Author Organization RoleStar tem Address [id number] [address] [place] [address] Care Team Providers Care Certified Nurse Aide Name Role Phone Angeline Bridges MD Primary Care Provider [phone] Allergies Active Allergy Reactions Criticality Noted Date Comments Capsaicin Other (See Comments) 05/27/2023 Diatrizoate Meglumine Rash Low 11/03/2016 Iodine Rash Low 11/03/2016 Levofloxacin In D5w Rash Low 11/03/2016 Lisinopril Cough 11/03/2016 Propoxyphene Rash Low 11/03/2016 Ropinirole Other (See Comments) 06/08/2024 Medications insulin aspart U-100 (NovoLOG) 100 unit/mL injection Inject under the skin in the morning and at noon and in the evening. Inject before meals. As directed per sliding scale. Active pantoprazole (PROTONIX) 40 mg EC tablet Take 1 tablet (40 mg total) by mouth in the morning. Active magnesium oxide (MAGOX) 400 mg tablet Take 1 tablet (400 mg total) by mouth in the morning. 90 tablet 3 4 Active furosemide (LASIX) 20 mg tablet Take 2 tablets (40 mg total) by mouth daily with breakfast AND 1 tablet (20 mg total) Daily before evening meal. 40 mg in am and 20 mg in pm. 90 tablet 6 5 Active cyanocobalamin 1000 MCG tablet Take 1 tablet (1,000 mcg total) by mouth in the morning. Active Additional Information Patient not taking.Reported on 01/13/2025 tamsulosin (FLOMAX) 0.4 mg capsule Take 1 capsule (0.4 mg total) by mouth nightly. Active sodium chloride 0.9 % injection Infuse 10 mL into a venous catheter every 12 (twelve) hours. Active Additional Information Patient not taking.Reported on 12/31/2024 sodium chloride 0.9 % injection Infuse 10 mL into a venous catheter as needed for line care. Active Additional Information Patient not taking.Reported on 12/31/2024 insulin glargine (LANTUS) 100 unit/mL injection Inject 0.6 mL (60 Units total) under the skin in the morning. Active pregabalin (LYRICA) 25 mg capsule Take 1 capsule (25 mg total) by mouth in the morning and 1 capsule (25 mg total) before bedtime. Active levothyroxine (SYNTHROID, LEVOTHROID) 25 MCG tablet Take 2 tablets (50 mcg total) by mouth nightly. Active Additional Information Patient taking differently:50 mcg oralDaily, Morning, Reported on 01/18/2025 ferrous sulfate 325 (65 FE) MG tablet Take 1 tablet (325 mg total) by mouth daily with breakfast. Active naloxone (NARCAN) 4 mg/actuation spray,non-aeros ol nasal spray Administer 1 spray (4 mg total) into alternating nostrils as needed for opioid reversal. Active povidone-iodine (BETADINE) 10 % external solution Apply 1 Application topically daily. Apply daily and as needed to bilateral heel and toe wounds Active collagenase (SANTYL) ointment Apply 1 Application topically daily. Apply to right calf and ankle wounds. Active polyethylene glycol (GLYCOLAX) 17 gram packet Take 17 g by mouth in the morning. Active LORazepam (ATIVAN) 0.5 mg tabletIndicatio ns:anxiety Take 1 tablet (0.5 mg total) by mouth every 12 (twelve) hours as needed for anxiety Indications: anxious. Active traZODone (DESYREL) 50 mg tablet Take 1 tablet (50 mg total) by mouth nightly. Active sodium chloride 0.9 % injection Infuse 10 mL into a venous catheter every 12 (twelve) hours. 5 mL 5 Active sodium chloride 0.9 % injection Infuse 10 mL into a venous catheter as needed for line care. 5 mL Active midodrine (PROAMATINE) 5 mg tablet Take 1 tablet (5 mg total) by mouth 3 (three) times a day as needed (SBP less than 90). 5 Active Active Problems Problem Noted Date Diagnosed Date Pressure injury of right heel, unstageable 01/14 Pressure ulcer of left heel, stage 4 01/14/2025 Generalized weakness 01/13/2025 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 12/08/2024 Stage 3b chronic kidney disease 12/03/2024 Pressure ulcer of right buttock, stage 2 025 Indwelling Nj catheter present 12/01/2024 Iron deficiency anemia 12/01/2024 Acute kidney injury superimposed on CKD 12/01/19 25 Class 3 severe obesity due t o excess calories with body mass index (BMI) of 40.0 to 44.9 in adult 11/30/2024 Chronic diastolic congestive heart failure 11/30 Pressure injury of right heel, unstageable 11/10 Venous stasis ulcer of left calf with fat layer exposed with varicose veins 11/10/2024 Hyponatremia 11/08/2024 Hyperkalemia 10/24/2024 Cellulitis of lower extremity, unspecified later ality 10/23/2024 Lymphedema 10/13/2024 Morbid obesity 01/15/2022 Mild tricuspid regurgitation 01/15/2022 Pulmonary hypertension 01/15/2022 Essential hypertension 01/15/2022 Preop cardiovascular exam 01/15/2022 BMI 45.0-49.9, adult 11/11/2019 Calculus of ureter 11/03/2019 Overview (12/08/2019): 11/03/19: Left 2 mm UVJ stone seen on CT November 01, 2019. Prescription for tamsulosin added. She is going to strain her urine. Recheck 1-2 weeks. I told her she has a very good chance of passing this on her own. She incidentally was noted under CT to have a very abnormal liver appearance in April 2019. Follow-up ultrasound was performed. Was noted on the most recent CT scan that she had improvement of this however they did recommend a follow-up MRI. Copy of CT being faxed to her primary care physician for follow-up. Patient notified. 12/08/19: She has likely passed the stone given her resolution of symptoms, no hematuria and small size. Today we talked about ways to decrease stone recurrences including increased hydration (more than 2.5 liters or urine output per day), avoidance of Western diet and not changing calcium consumption. Abdominal pain 04/18/2019 Diabetes mellitus type I Hypothyroidism PVD (peripheral vascular disease) Resolved Problems Problem Noted Date Diagnosed Date Resolved Date Venous stasis ulcer of left lower leg with edema of left lower leg 11/10/2024 12/08/2024 Encounters Date Type Department Care Team Description 02/23/2025 Refill PHN [facility] [address] [place] [address] Pam Reyes, ROUTER SETTER-BAND SAWING MACHINE OPERATOR 01/18/2025 Documentation [facility] Sign In [address] [place] [id number] Alton Potts DPM 01/13/2025 7:59 PM EDT - 01/20/2025 12:10 PM EDT Hospital Encounter [facility] [address] [place] [address] Leonardo Benson DO Asif, Muhamid M, MD Shah, Jagruti Nimit, MD Generalized weakness (Primary Dx); Pressure injury of skin of heel, unspecified injury stage, unspecified laterality; Urinary tract infection associated with indwelling urethral catheter, initial encounter; Debility; Pressure ulcer of left heel, stage 4 (CMS-HCC); Pressure injury of right heel, unstageable (CMS-HCC); 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 (CMS-HCC); Stage 3b chronic kidney disease (CMS-HCC); Iron deficiency anemia, unspecified iron deficiency anemia type Discharge Disposition: [facility]pc Facility-Medicare Cert 01/13/2025 Travel 01/04/2025 Telephone [facility] [address] [place] [address] Geeta Bhatia 12/31/2024 1:20 PM EDT Office Visit [facility] [address] [place] [address] Codie Workman, ROUTER SETTER-BAND SAWING MACHINE OPERATOR Freddy Esquivel, ROUTER SETTER-BAND SAWING MACHINE OPERATOR Non-pressure ulcer of lower extremity with fat layer exposed, right (CMS-HCC) (Primary Dx); Pressure injury of right heel, unstageable (CMS-HCC); Venous stasis ulcer of left lower leg with edema of left lower leg (CMS-HCC); Lymphorrhea; 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 (CMS-HCC) 12/31/2024 Travel from Last 3 Months Immunizations Immunization Administration Dates Next Due COVID-19, mRNA, LNP-S, PF, 100mcg/0.5mL Dose ,08/12/2020 Family History Medical History Relation Name Comments Heart disease Father Cancer Mother Ovarian cancer Mother Relation Name Status Comments Father Mother Social History Tobacco Use Types Packs/Day Years Used Date Smoking Tobacco: Former Smokeless Tobacco: Never Alcohol Use Standard Drinks/Week Comments Never 0 (1 standard drink = 0.6 oz pur e alcohol) [facility] Utilities Answer Date Recorded In the past 12 months has e Sensor[employer], gas, oil, or water [employer] threatened to shut off services in your home? No 01/17/2025 AUDIT-C Answer Date Recorded Q1: How often do you have a drink containing alc ohol? Never 11/03/2019 Average Number of Drinks Not on file 020 Frequency of Binge Drinking Not on file 10/15 PRAPARE - Transportation Answer Date Re corded In the past 12 months, has l ack of transportation kept you from medical appointments or from getting medications? No 08/2024 In the past 12 months, has l ack of transportation kept you from meetings, work, or from getting things needed for daily living? No 01/17/2025 Housing Instability Answer Date Recorde d Are you worried or concerned that in the next two months you may not have stable housing that you own, rent or stay in as a part of a household? No 01/17/2025 Childcare Answer Date Recorded Childcare Unknown 11/26/2018 Employment Answer Date Recorded Employment Unknown 11/26/2018 Hunger Screening Answer Date Recorded Within the past 12 months we worried whether our food would run out before we got money to buy more. Never True 01/17/2025 Within the past 12 months th e food we bought just didn't last and we didn't have money to get more. Never True 01/17/2025 Purpose - Life Answer Date Recorded Purpose and direction in life Unknown Comments No Sex and Gender Information Value Date Recorded Sex Assigned at Not on file Legal Sex Female 11:26 AM EDT Gender Identity Not on file Sexual Orientation Not on file Last Filed Vital Signs Vital Sign Reading Time Taken Comments Blood Pressure 130/63 01/20/2025 7:45 AM EDT Pulse 93 01/20/2025 7:45 AM EDT Temperature 36.6 C (97.8 F) 01/20/2025 7:45 AM EDT Respiratory Rate 18 01/20/2025 7:45 AM EDT Oxygen Saturation 94% 01/20/2025 7:45 AM EDT Inhaled Oxygen Concentration - - Weight 105.2 kg (232 lb) 01/18/2025 11:33 AM EDT Height 149.9 cm (4' 11 ) 01/18/2025 11:33 AM EDT Body Mass Index 46.86 01/18/2025 11:33 AM EDT Plan of Treatment Upcoming Encounters Date Type Department Care Team (Late st Contact Info) Description 04/14/2025 10:00 AM EDT Office Visit [facility] [address] [place] [address] [place] [address] Mena Bender I, [place] [facility] [address] [place] [address] Health Maintenance Due Date Last Done Comments Depression Screening 1952 DTaP,Tdap and Td Vaccines (1 - Tdap) 12/03/1959 Zoster (Shingles) Vaccine (1 of 2) 1990 Fall Risk Screening 2005 COVID-19 Vaccine (2024-2 6 season) 2025 05/31/2021, 09/09/2020, 08/12/2020 Influenza Vaccine 02/15/2025 08/26/2024, , 05/17/2022, Additional history exists Tobacco Screening 01/15/2026 01/15/2025 Goals Goal Patient Goal Type Associated Problems Recent Progress Patient-Stated? Author return to [place] to complete skilled stay General Yes Marianne Pal LSW Note: Evaluation of progress towards goal: feeling better than at admission Medical Devices Not on file Procedures Procedure Name Priority Date/Time Associated Diagnosis Comments COMPREHENSIVE METABOLIC PANEL Routine 01/20/2025 5:34 AM EDT CBC (NO DIFF) Routine 01/20/2025 5:34 AM EDT MAGNESIUM Routine 01/20/2025 5:34 AM EDT BEDSIDE GLUCOSE Routine 01/19/2025 8:31 PM EDT BEDSIDE GLUCOSE Routine 01/19/2025 4:34 PM EDT BEDSIDE GLUCOSE Routine 01/19/2025 12:57 PM EDT ECG 12-LEAD Routine 01/19/2025 12:26 PM EDT MR LOWER LEG RT WO CONT Routine 01/19/2025 12:11 PM EDT MR LOWER LEG LT WO CONT Routine 01/19/2025 12:11 PM EDT BEDSIDE GLUCOSE Routine 01/19/2025 11:24 AM EDT COMPREHENSIVE METABOLIC PANEL Routine 01/19/2025 4:01 AM EDT CBC (NO DIFF) Routine 01/19/2025 4:01 AM EDT MAGNESIUM Routine 01/19/2025 4:01 AM EDT BEDSIDE GLUCOSE Routine 01/18/2025 8:32 PM EDT BEDSIDE GLUCOSE Routine 01/18/2025 4:04 PM EDT VANCOMYCIN, RANDOM Routine 01/18/2025 2: 39 PM EDT MAGNESIUM Routine 01/18/2025 2:39 PM EDT POTASSIUM Routine 01/18/2025 2:39 PM EDT MR FOOT RT WO CONT Routine 01/18/2025 12 :46 PM EDT MR FOOT LT WO CONT Routine 01/18/2025 12 :44 PM EDT BEDSIDE GLUCOSE Routine 01/18/2025 11:00 AM EDT EXTRA TUBES BLUE TOP Routine 01/18/2025 4:39 AM EDT EXTRA TUBES Routine 01/18/2025 4:39 AM EDT COMPREHENSIVE METABOLIC PANEL Routine 01/18/2025 4:39 AM EDT CBC (NO DIFF) Routine 01/18/2025 4:39 AM EDT MAGNESIUM Routine 01/18/2025 4:39 AM EDT VANCOMYCIN, TROUGH Routine 01/17/2025 8: 58 PM EDT BEDSIDE GLUCOSE Routine 01/17/2025 8:20 PM EDT BEDSIDE GLUCOSE Routine 01/17/2025 4:27 PM EDT BEDSIDE GLUCOSE Routine 01/17/2025 1:23 PM EDT BEDSIDE GLUCOSE Routine 01/17/2025 8:21 AM EDT EXTRA TUBES BLUE TOP Routine 01/17/2025 4:29 AM EDT EXTRA TUBES Routine 01/17/2025 4:29 AM EDT COMPREHENSIVE METABOLIC PANEL Routine 01/17/2025 4:29 AM EDT CBC (NO DIFF) Routine 01/17/2025 4:29 AM EDT MAGNESIUM Routine 01/17/2025 4:29 AM EDT BEDSIDE GLUCOSE Routine 01/16/2025 12:10 PM EDT BEDSIDE GLUCOSE Routine 01/16/2025 7:17 AM EDT BEDSIDE GLUCOSE Routine 01/16/2025 6:49 AM EDT BEDSIDE GLUCOSE Routine 01/16/2025 6:25 AM EDT EXTRA TUBES SST TOP Routine 01/16/2025 5 :16 AM EDT EXTRA TUBES BLUE TOP Routine 01/16/2025 5:16 AM EDT EXTRA TUBES Routine 01/16/2025 5:16 AM EDT PROCALCITONIN Routine 01/16/2025 5:16 AM EDT COMPREHENSIVE METABOLIC PANEL Routine 01/16/2025 5:16 AM EDT CBC (NO DIFF) Routine 01/16/2025 5:16 AM EDT MAGNESIUM Routine 01/16/2025 5:16 AM EDT POTASSIUM Routine 01/15/2025 8:23 PM EDT BEDSIDE GLUCOSE Routine 01/15/2025 4:21 PM EDT BEDSIDE GLUCOSE Routine 01/15/2025 12:24 PM EDT BEDSIDE GLUCOSE Routine 01/15/2025 9:53 AM EDT PROCALCITONIN Routine 01/15/2025 5:54 AM EDT COMPREHENSIVE METABOLIC PANEL Routine 01/15/2025 5:54 AM EDT CBC (NO DIFF) Routine 01/15/2025 5:54 AM EDT MAGNESIUM Routine 01/15/2025 5:54 AM EDT BEDSIDE GLUCOSE Routine 01/14/2025 4:39 PM EDT XR FOOT RT 2 VWS Routine 01/14/2025 12:3 5 PM EDT XR FOOT LT 2 VWS Routine 01/14/2025 12:3 4 PM EDT BEDSIDE GLUCOSE Routine 01/14/2025 12:12 PM EDT BEDSIDE GLUCOSE Routine 01/14/2025 10:02 AM EDT BASIC METABOLIC PANEL Add-On 01/14/2025 9:10 AM EDT PROCALCITONIN Routine 01/14/2025 9:10 AM EDT LACTATE W/ REFLEX Routine 01/14/2025 9:1 0 AM EDT EXTRA TUBES LAVENDER TOP Routine 01/14/2025 9:05 AM EDT EXTRA TUBES BLUE TOP Routine 01/14/2025 9:05 AM EDT CBC (NO DIFF) Add-On 01/14/2025 9:05 AM EDT EXTRA TUBES Routine 01/14/2025 9:05 AM EDT BEDSIDE GLUCOSE Routine 01/14/2025 8:42 AM EDT POCT NURSING URINE MACROSCOPIC UA Routine 01/13/2025 9:25 PM EDT ER EXTRA URINE STAT 01/13/2025 9:16 PM EDT URINE CULTURE STAT 01/13/2025 9:16 PM EDT EXTRA TUBES BLUE TOP Routine 01/13/2025 8:55 PM EDT EXTRA TUBES Routine 01/13/2025 8:55 PM EDT CK TOTAL STAT 01/13/2025 8:48 PM EDT MYOGLOBIN, SERUM STAT 01/13/2025 8:48 PM EDT LACTATE W/ REFLEX STAT 01/13/2025 8:4 8 PM EDT MAGNESIUM STAT 01/13/2025 8:48 PM EDT COMPREHENSIVE METABOLIC PANEL STAT 01/13/2025 8:48 PM EDT CBC WITH AUTO DIFFERENTIAL STAT 01/13/2025 8:48 PM EDT BLOOD CULTURE STAT 01/13/2025 8:48 PM EDT BLOOD CULTURE STAT 01/13/2025 8:48 PM EDT PM ED CRITICAL CARE Routine 01/13/2025 8 :28 PM EDT ECG 12-LEAD STAT 01/13/2025 8:09 PM EDT NURSING COMMUNICATION Routine 12/31/2024 3:31 PM EDT 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 (CMS-HCC) NURSING COMMUNICATION Routine 12/31/2024 3:31 PM EDT 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 (CMS-HCC) from Last 3 Months Results * (ABNORMAL) CBC without diff (01/20/2025 5:34 AM EDT) Only the most recent of7 resultswithin the time period is included. WBC 13.5(H) 4 - 11 x10E9/L 01/20/2025 6:12 AM EDT [facility] RBC Count 3.66(L) 3.8 - 5.2 X10E12/L 01/20/2025 6:12 AM EDT [facility] Hemoglobin 10.1(L) 11.7 - 15.5 g/dL 01/20/2025 6:12 AM EDT [facility] Hematocrit 31.0(L) 35 - 47 % 01/20/2025 6:12 AM EDT [facility] MCV 85 80 - 100 fL 01/20/2025 6:12 AM EDT [facility] MCH 27.6 27 - 34 pg 01/20/2025 6:12 AM EDT [facility] MCHC 32.6 32 - 36 g/dL 01/20/2025 6:12 AM EDT [facility] RDW 14.1 11.5 - 15 % 01/20/2025 6:12 AM EDT [facility] Platelet Count 295 150 - 450 X10E9/L 01/20/2025 6:12 AM EDT [facility] MPV 7.0 7 - 12 fL 01/20/2025 6:12 AM EDT [facility] Blood Venous blood / Unknown 01/20/2025 5:34 AM EDT 01/20/2025 6:07 AM EDT [facility] Teamie ROUTER SETTER-BAND SAWING MACHINE OPERATOR LAB BLOOD ORDERABLES F inal Result Performing Organization Address City/[facility] Co de Phone Number [address] [address], [place] * Magnesium (01/20/2025 5:34 AM EDT) Only the most recent of8 resultswithin the time period is included. MAGNESIUM 2.3 1.8 - 2.6 mg/dL 01/20/2025 6:31 AM EDT [facility] Blood Venous blood / Unknown 01/20/2025 5:34 AM EDT 01/20/2025 6:07 AM EDT [facility] ROUTER SETTER-BAND SAWING MACHINE OPERATOR LAB BLOOD ORDERABLES F inal Result Performing Organization Address [facility] de Phone Number [address] [place] [address], [place] * (ABNORMAL) Comprehensive metabolic panel (01/20/2025 5:34 AM EDT) Only the most recent of7 resultswithin the time period is included. SODIUM 135 134 - 146 mmol/L 01/20/2025 6:31 AM EDT [facility] POTASSIUM 3.9 3.5 - 5.0 mmol/L 01/20/2025 6:31 AM EDT [facility] CHLORIDE 98 98 - 109 mmol/L 01/20/2025 6:31 AM EDT [facility] CARBON DIOXIDE 27 22 - 32 mmol/L 01/20/2025 6:31 AM EDT [facility] ANION GAP 10 5 - 15 mmol/L 01/20/2025 6:31 AM EDT [facility] BLOOD UREA NITROGEN 29(H) 5 - 27 mg/dL 01/20/2025 6:31 AM EDT [facility] CREATININE 1.34(H) 0.40 - 1.00 mg/dL 01/20/2025 6:31 AM EDT [facility] Comment:METHOD TRACEABLE TO IDMS STANDARD GLUCOSE 119(H) 65 - 99 mg/dL 01/20/2025 6:31 AM EDT [facility] CALCIUM 8.5 8.5 - 10.5 mg/dL 01/20/2025 6:31 AM EDT [facility] TOTAL PROTEIN 6.0 6.0 - 8.0 g/dL 01/20/2025 6:31 AM EDT [facility] ALBUMIN 2.3(L) 3.2 - 5.3 g/dL 01/20/2025 6:31 AM EDT [facility] ALKALINE PHOSPHATASE 76 39 - 130 U/L 01/20/2025 6:31 AM EDT [facility] AST 11 <=41 U/L 01/20/2025 6:31 AM EDT [facility] ALT 9 <=31 U/L 01/20/2025 6:31 AM EDT [facility] BILIRUBIN,TOTAL 0.7 0.3 - 1.2 mg/dL 01/20/2025 6:31 AM EDT [facility] EGFR Non-Race Dependent 39(L) >=60 ml/min/1.7 3sq.m 01/20/2025 6:31 AM EDT [facility] Comment: eGFR not reported due to non-numeric value for Creatinine. Reported eGFR is based on the CKD-EPI 2020 equation that does not use a race coefficient. Blood Venous blood / Unknown 01/20/2025 5:34 AM EDT 01/20/2025 6:07 AM EDT us Letty Vidales ROUTER SETTER-BAND SAWING MACHINE OPERATOR LAB BLOOD ORDERABLES F inal Result [facility] [address] [place] [address], [place] * (ABNORMAL) Bedside Glucose *Place/Obtain serum glucose if >500 per glucometer. (01/19/2025 8:31 PM EDT) Only the most recent of22 resultswithin the time period is included. Bedside Glucose (POC) 209(H) 65 - 99 mg/dL 01/19/2025 8:36 PM EDT [facility] arterial/capilla ry 01/19/2025 8:31 PM EDT 01/19/2025 8:36 PM EDT Meg Brito MD POINT OF CARE TEST ORDERAB LES Final Result [facility] [address] [place] [address], * ECG 12 lead (01/19/2025 12:26 PM EDT) Only the most recent of2 resultswithin the time period is included. 01/19/2025 12:2 6 PM EDT Narrative [facility] - 01/19/2025 4:45 PM EDT Margot Leiva APRN-BAND SAWING MACHINE OPERATOR ECG ORDERABLES Final Res ult [facility] * MR lower leg right without contrast (01/19/2025 12:11 PM EDT) Anatomical Region Laterality Modality MSK, Lower Leg, Lower Extremities, MSK [place] Magnetic Resonance 01/19/2025 12:2 8 PM EDT Narrative 01/19/2025 12:29 PM EDT Clinical history: Infection. MRI right lower le01/19/2025 PROCEDURE: Multiplanar multisequence imaging of the lower legs was performed. FINDINGS: Images are degraded by motion artifact and resolution is suboptimal. There is cutaneous irregularity posterior aspect of the right heel. No discrete fluid collection or underlying abnormalities evident. Bone marrow signal within the visualized osseous structures the foot and ankle region as well as the tibia and fibula are grossly within normal limits. IMPRESSION: Some cutaneous irregularity of the heel posteriorly with no visible abscess. No findings of osteomyelitis or myositis within the lower leg/ankle region. Finalized by Gino Mendez MD on 01/19/2025 12:29 PM Procedure Note Gino Mendez MD - 01/19/2025 Clinical history: Infection. MRI right lower le01/19/2025 PROCEDURE: Multiplanar multisequence imaging of the lower legs wasperformed. FINDINGS: Images are degraded by motion artifact and resolution is suboptimal. There is cutaneous irregularity posterior aspect of the right heel. Nodiscrete fluid collection or underlying abnormalities evident. Bone marrow signal within the visualized osseous structures the foot andankle region as well as the tibia and fibula are grossly within normallimits. IMPRESSION: Some cutaneous irregularity of the heel posteriorly with no visibleabscess. No findings of osteomyelitis or myositis within the lowerleg/ankle region. Finalized by Gino Mendez MD on 01/19/2025 12:29 PM Margot Leiva ROUTER SETTER-BAND SAWING MACHINE OPERATOR IMG MRI ORDERABLES Final Result * MR lower leg left without contrast (01/19/2025 12:11 PM EDT) Anatomical Region Laterality Modality MSK, Lower Leg, Lower Extremities, MSK [place] Magnetic Resonance 01/19/2025 12:2 5 PM EDT Narrative 01/19/2025 12:29 PM EDT Clinical history: Heel pressure ulcers. MRI left lower leg without contrast: 01/19/2025 COMPARISON: None PROCEDURE: Multiplanar multisequence imaging of the lower leg was performed without intravenous contrast. FINDINGS: Images are degraded by motion artifact. Resolution is suboptimal due to the large field of visualization No gross bone marrow signal changes are present within the tibia or fibula. There is no large joint effusion at the knee or ankle region. Other visualized osseous structures appear grossly within normal limits. No discrete fluid collection is evident within the visualized soft tissues. Musculotendinous structures appear within normal limits. IMPRESSION: Limited MRI study demonstrating no changes of osteomyelitis or findings of acute infection within the left lower leg. Finalized by Gino Mendez MD on 01/19/2025 12:29 PM Procedure Note Gino Mendez MD - 01/19/2025 Clinical history: Heel pressure ulcers. MRI left lower leg without contrast: 01/19/2025 COMPARISON: None PROCEDURE: Multiplanar multisequence imaging of the lower leg wasperformed without intravenous contrast. FINDINGS: Images are degraded by motion artifact. Resolution is suboptimal due tothe large field of visualization No gross bone marrow signal changes are present within the tibia orfibula. There is no large joint effusion at the knee or ankle region.Other visualized osseous structures appear grossly within normal limits. No discrete fluid collection is evident within the visualized softtissues. Musculotendinous structures appear within normal limits. IMPRESSION: Limited MRI study demonstrating no changes of osteomyelitis or findings ofacute infection within the left lower leg. Finalized by Gino Mendez MD on 01/19/2025 12:29 PM us Margot POLK IMG MRI ORDERABLES Final Result * Potassium (01/18/2025 2:39 PM EDT) Only the most recent of2 resultswithin the time period is included. POTASSIUM 4.2 3.5 - 5.0 mmol/L 01/18/2025 3:07 PM EDT [facility] Blood Venous blood / Unknown Venipuncture / Unknown 01/18/2025 2:39 PM EDT 01/18/2025 2:49 PM EDT us Margot Leiva APRN-BAND SAWING MACHINE OPERATOR LAB BLOOD ORDERABLES Grisel l Result [facility] [address] [place] [address], * Vancomycin, random (01/18/2025 2:39 PM EDT) VANCOMYCIN 18.7 5.0 - 40.0 ug/mL 01/18/2025 3:08 PM EDT [facility] Blood Venous blood / Unknown Venipuncture / Unknown 01/18/2025 2:39 PM EDT 01/18/2025 2:49 PM EDT Narrative [facility] - 01/18/2025 3:08 PM EDT Peak 30-40 ug/mL Trough 5-20 ug/ml us Margot Leiva ROUTER SETTER-BAND SAWING MACHINE OPERATOR LAB BLOOD ORDERABLES Grisel l Result [facility] [address] [place] [address], [place] * MR foot right without contrast (01/18/2025 12:46 PM EDT) Anatomical Region Laterality Modality MSK, Foot, Lower Extremities, MSK Covera Right Magnetic Resonance 01/18/2025 12:5 9 PM EDT Narrative 01/18/2025 1:04 PM EDT MRI right foot without contrast HISTORY: Osteomyelitis, infection. COMPARISON: Radiographs 01/14/2025 TECHNIQUE: Multiplanar, multisequence MR imaging was performed without contrast according to standard protocol. Forefoot midfoot [id number]. FINDINGS: Slight motion degradation. No appreciable ostial myelitis or abscess. Intact Lisfranc ligament complex. Scattered arthritis. No significant joint or bursal fluid. Fatty atrophy and infiltration muscles with slight varying degrees of edema. IMPRESSION: 1. No acute findings, no evidence of osteomyelitis. No abscess. Finalized by Chaka Patel MD on 01/18/2025 1:04 PM Procedure Note Chaka Patel MD - 01/18/2025 MRI right foot without contrast HISTORY: Osteomyelitis, infection. COMPARISON: Radiographs 01/14/2025 TECHNIQUE: Multiplanar, multisequence MR imaging was performed withoutcontrast according to standard protocol. Forefoot midfoot [id number]. FINDINGS: Slight motion degradation. No appreciable ostial myelitis or abscess. Intact Lisfranc ligament complex. Scattered arthritis. No significant joint or bursal fluid. Fatty atrophy and infiltration muscles with slight varying degrees ofedema. IMPRESSION: 1. No acute findings, no evidence of osteomyelitis. No abscess. Finalized by Chaka Patel MD on 01/18/2025 1:04 PM Margot Leiva ROUTER SETTER-BAND SAWING MACHINE OPERATOR IMG MRI ORDERABLES Final Result * MR foot left without contrast (01/18/2025 12:44 PM EDT) Anatomical Region Laterality Modality MSK, Foot, Lower Extremities, MSK Covera Left Magnetic Resonance 01/18/2025 12:5 0 PM EDT Narrative 01/18/2025 12:58 PM EDT MRI left foot without contrast HISTORY: Wound, infection. COMPARISON: Radiograph 01/14/2025 TECHNIQUE: Multiplanar, multisequence MR imaging was performed without contrast according to standard protocol. Forefoot midfoot [id number]. FINDINGS: Motion degradation is present, compromising evaluation. Within these limitations: No acute fracture dislocation. Intact Lisfranc ligament complex. No evidence of osteomyelitis. No soft tissue abscess. Edematous changes plantar aspect of the forefoot suggesting possible cellulitis. Additional fatty atrophy and infiltration muscles with slight muscular edema. Otherwise scattered arthritis worst first MTP joint. IMPRESSION: 1. No evidence of osteomyelitis with the limitations of exam. No acute findings. 2. Findings of possible cellulitis. Finalized by Chaka Patel MD on 01/18/2025 12:58 PM Procedure Note Chaka Patel MD - 01/18/2025 MRI left foot without contrast HISTORY: Wound, infection. COMPARISON: Radiograph 01/14/2025 TECHNIQUE: Multiplanar, multisequence MR imaging was performed withoutcontrast according to standard protocol. Forefoot midfoot [id number]. FINDINGS: Motion degradation is present, compromising evaluation. Within theselimitations: No acute fracture dislocation. Intact Lisfranc ligament complex. No evidence of osteomyelitis. No soft tissue abscess. Edematous changes plantar aspect of the forefoot suggesting possiblecellulitis. Additional fatty atrophy and infiltration muscles with slight muscularedema. Otherwise scattered arthritis worst first MTP joint. IMPRESSION: 1. No evidence of osteomyelitis with the limitations of exam. No acutefindings. 2. Findings of possible cellulitis. Finalized by Chaka Patel MD on 01/18/2025 12:58 PM Margot Leiva ROUTER SETTER-BAND SAWING MACHINE OPERATOR IMG MRI ORDERABLES Final Result * Light Blue Top (01/18/2025 4:39 AM EDT) Only the most recent of5 resultswithin the time period is included. Extra Tube Auto Resulted 01/18/2025 6:03 AM EDT [facility] Blood Venous blood / Unknown 01/18/2025 4:39 AM EDT 01/18/2025 5:23 AM EDT Zenobia Funez MD LAB BLOOD ORDERABLES Final Res ult Performing Organization Address [facility]/ZIP Co de Phone Number [address] [place] [address], [place] * (ABNORMAL) Vancomycin, trough (01/17/2025 8:58 PM EDT) VANCOMYCIN TROUGH 21.8(H) 5.0 - 20.0 ug/mL 01/17/2025 9:28 PM EDT [facility] Blood Venous blood / Unknown Venipuncture / Unknown 01/17/2025 8:58 PM EDT 01/17/2025 9:08 PM EDT Zenobia Funez MD LAB BLOOD ORDERABLES Final Res ult Performing Organization Address City/[facility] Co de Phone Number [address] [place] [address], [place] * SST TOP (01/16/2025 5:16 AM EDT) Extra Tube Auto Resulted 01/16/2025 7:01 AM EDT [facility] Blood Venous blood / Unknown 01/16/2025 5:16 AM EDT 01/16/2025 5:40 AM EDT Zenobia Funez MD LAB BLOOD ORDERABLES Final Res ult Performing Organization Address City/[facility] Co de Phone Number [address] [place] [address], [place] * (ABNORMAL) Procalcitonin (01/16/2025 5:16 AM EDT) Only the most recent of3 resultswithin the time period is included. PROCALCITONIN 0.52(H) <0.05 ng/mL 01/16/2025 8:01 AM EDT [facility] Blood Venous blood / Unknown Venipuncture / Unknown 01/16/2025 5:16 AM EDT 01/16/2025 5:37 AM EDT Narrative [facility] - 01/16/2025 8:01 AM EDT <0.50 ng/mL - Low risk of severe sepsis and/or septic shock. <2.00 ng/mL - Recommend retesting within 6-24 hours. >2.00 ng/mL - High risk of sepsis and/or septic shock. us Miguel Douglas ROUTER SETTER-BAND SAWING MACHINE OPERATOR LAB BLOOD ORDERABLES Fin al Result Performing Organization Address [facility] de Phone Number [address] [place] [address], [place] * X-ray foot right 2 views (01/14/2025 12:35 PM EDT) Anatomical Region Laterality Modality Lower Extremities, MSK, Foot Right Com puted Radiography 01/14/2025 1:14 PM EDT Narrative 01/14/2025 1:15 PM EDT XR FOOT RT 2 VWS HISTORY: Pain. Concern for osteomyelitis. COMPARISON: 11/08/2024 FINDINGS: AP and lateral views obtained. No acute fracture, dislocation, or destructive osseous lesion. No lytic lesion, focal osteopenia, or periosteal reaction to suggest osteomyelitis. Degenerative changes throughout the foot and ankle. Vascular calcifications. Diffuse soft tissue swelling. IMPRESSION: No radiographic evidence of osteomyelitis. Consider further evaluation with MRI or triple phase bone scan if clinically indicated. Finalized by Carlton Weiss MD on 01/14/2025 1:15 PM Procedure Note Carlton Weiss MD - 01/14/2025 XR FOOT RT 2 VWS HISTORY: Pain. Concern for osteomyelitis. COMPARISON: 11/08/2024 FINDINGS: AP and lateral views obtained. No acute fracture, dislocation, or destructive osseous lesion. No lyticlesion, focal osteopenia, or periosteal reaction to suggest osteomyelitis.Degenerative changes throughout the foot and ankle. Vascularcalcifications. Diffuse soft tissue swelling. IMPRESSION: No radiographic evidence of osteomyelitis. Consider further evaluationwith MRI or triple phase bone scan if clinically indicated. Finalized by Carlton Weiss MD on 01/14/2025 1:15 PM us Miguel Douglas ROUTER SETTER-BAND SAWING MACHINE OPERATOR IMG DIAGNOSTIC IMAGING O RDERABLES Final Result * X-ray foot left 2 views (01/14/2025 12:34 PM EDT) Anatomical Region Laterality Modality Lower Extremities, MSK, Foot Left Com puted Radiography 01/14/2025 1:11 PM EDT Narrative 01/14/2025 1:14 PM EDT XR FOOT LT 2 VWS HISTORY: Pain. Concern for osteomyelitis. COMPARISON: 11/08/2024 FINDINGS: AP and lateral views obtained. No acute fracture, dislocation, or destructive osseous lesion. No lytic lesion, focal osteopenia, or periosteal reaction to suggest osteomyelitis. Degenerative changes throughout the foot and ankle. Vascular calcifications. Diffuse soft tissue swelling. IMPRESSION: No radiographic evidence of osteomyelitis. Consider further evaluation with MRI or triple phase bone scan if clinically indicated. Finalized by Carlton Weiss MD on 01/14/2025 1:14 PM Procedure Note Carlton Weiss MD - 01/14/2025 XR FOOT LT 2 VWS HISTORY: Pain. Concern for osteomyelitis. COMPARISON: 11/08/2024 FINDINGS: AP and lateral views obtained. No acute fracture, dislocation, or destructive osseous lesion. No lyticlesion, focal osteopenia, or periosteal reaction to suggest osteomyelitis.Degenerative changes throughout the foot and ankle. Vascularcalcifications. Diffuse soft tissue swelling. IMPRESSION: No radiographic evidence of osteomyelitis. Consider further evaluationwith MRI or triple phase bone scan if clinically indicated. Finalized by Carlton Weiss MD on 01/14/2025 1:14 PM Miguel Douglas APRN-BAND SAWING MACHINE OPERATOR IMG DIAGNOSTIC IMAGING O RDERABLES Final Result * Lactate w/ Reflex (01/14/2025 9:10 AM EDT) Only the most recent of2 resultswithin the time period is included. LACTATE W/REFLEX 1.3 0.4 - 2.0 mmol/L 01/14/2025 9:33 AM EDT [facility] Blood Venous blood / Unknown Venipuncture / Unknown 01/14/2025 9:10 AM EDT 01/14/2025 9:14 AM EDT Narrative [facility] - 01/14/2025 9:33 AM EDT Result did not trigger repeat Lactate, re-order if needed. Miguel Douglas APRN-[facility] LAB BLOOD ORDERABLES Fin al Result [facility] [address] [place] [address], * (ABNORMAL) Basic Metabolic Panel (01/14/2025 9:10 AM EDT) SODIUM 135 134 - 146 mmol/L 01/14/2025 9:58 AM EDT [facility] POTASSIUM 3.8 3.5 - 5.0 mmol/L 01/14/2025 9:58 AM EDT [facility] CHLORIDE 101 98 - 109 mmol/L 01/14/2025 9:58 AM EDT [facility] CARBON DIOXIDE 26 22 - 32 mmol/L 01/14/2025 9:58 AM EDT [facility] ANION GAP 8 5 - 15 mmol/L 01/14/2025 9:58 AM EDT [facility] BLOOD UREA NITROGEN 43(H) 5 - 27 mg/dL 01/14/2025 9:58 AM EDT [facility] CREATININE 1.45(H) 0.40 - 1.00 mg/dL 01/14/2025 9:58 AM EDT [facility] Comment:METHOD TRACEABLE TO IDMS STANDARD GLUCOSE 73 65 - 99 mg/dL 01/14/2025 9:58 AM EDT [facility] CALCIUM 8.6 8.5 - 10.5 mg/dL 01/14/2025 9:58 AM EDT [facility] EGFR Non-Race Dependent 36(L) >=60 ml/min/1.7 3sq.m 01/14/2025 9:58 AM EDT [facility] Comment: eGFR not reported due to non-numeric value for Creatinine. Reported eGFR is based on the CKD-EPI 2020 equation that does not use a race coefficient. Blood Venous blood / Unknown Venipuncture / Unknown 01/14/2025 9:10 AM EDT 01/14/2025 9:14 AM EDT us Miguel Douglas ROUTER SETTER-BAND SAWING MACHINE OPERATOR LAB BLOOD ORDERABLES Fin al Result [address] [place] [address], [place] * Lavender Top (01/14/2025 9:05 AM EDT) Extra Tube Auto Resulted 01/14/2025 11:01 AM EDT [facility] Blood Venous blood / Unknown 01/14/2025 9:05 AM EDT 01/14/2025 9:15 AM EDT us Zenobia Funez MD LAB BLOOD ORDERABLES Final Res ult [address] [place] [address], [place] * (ABNORMAL) POCT Nursing Urine Macroscopic UA (01/13/2025 9:25 PM EDT) POC Urine Specific Russell <=1.005(A) 1.010, 1.015, 1.020, 1.025 01/13/2025 9:16 PM EDT [facility] POC Urine Leukocyte Esterase Small(A) Negative 01/13/2025 9:16 PM EDT [facility] POC Urine Nitrite Positive(A) Negative 01/13/2025 9:16 PM EDT [facility] POC Urine pH 5.5 5.0, 6.0, 6.5, 7.0, 7.5, 8.0, 8.5, 5.5 01/13/2025 9:16 PM EDT [facility] POC Urine Protein 30 mg/dL(A) Negative 01/13/2025 9:16 PM EDT [facility] POC Urine Glucose Negative Negative 01/13/2025 9:16 PM EDT [facility] POC Urine Ketones Negative Negative 01/13/2025 9:16 PM EDT [facility] POC Urine Urobilinogen 0.2 E.U./dL 01/13/2025 9:16 PM EDT [facility] POC Urine Bilirubin Negative Negative 01/13/2025 9:16 PM EDT [facility] POC Urine Blood/HGB Large(A) Negative 01/13/2025 9:16 PM EDT [facility] Urine 01/13/2025 9:25 PM EDT 01/13/2025 9:16 PM EDT us Khalid Kelley DO POINT OF CARE TEST ORDERABLES Fi nal Result [facility] [address] [place] [address], [place] * Extra Urine (01/13/2025 9:16 PM EDT) Extra Tube Auto Resulted 01/13/2025 11:01 PM EDT [facility] Urine Urine specimen collection, clean catch / Unknown 01/13/2025 9:16 PM EDT 01/13/2025 9:32 PM EDT Anna Justice [facility] URINE ORDERABLES Grisel l Result Performing Organization Address [facility]/ZIP Co de Phone Number [facility] [address] [place] [address], [place] * (ABNORMAL) Urine Culture Urine, Indwelling Catheter (01/13/2025 9:16 PM EDT) CULTURE RESULTS >100,000 CFU/mL Pseudomonas aeruginosa(A) 01/16/2025 7:49 PM EDT [facility] CULTURE RESULTS >100,000 CFU/mL Klebsiella pneumoniae(A) 01/16/2025 7:49 PM EDT [facility] CULTURE RESULTS 10,000-50,000 CFU/mL Escherichia coli(A) 01/16/2025 7:49 PM EDT [facility] Urine (Urine, Indwelling Catheter) 01/13/2025 9:16 PM EDT 01/13/2025 9:32 PM EDT Narrative [facility] - 01/16/2025 7:49 PM EDT The urine of patients with catheters usually becomes colonized. Treatment may not be indicated. Correlate these findings with clinical presentation. If sepsis is suspected, contact laboratory for reporting AST results. Anna Justice [facility] MICROBIOLOGY - GENERA L ORDERABLES Final Result [facility] [address] [place] [address], [place] [phone] * (ABNORMAL) CBC auto differential (01/13/2025 8:48 PM EDT) WBC 19.3(H) 4 - 11 x10E9/L 01/13/2025 10:39 PM EDT [facility] RBC Count 4.02 3.8 - 5.2 X10E12/L 01/13/2025 10:39 PM EDT [facility] Hemoglobin 10.9(L) 11.7 - 15.5 g/dL 01/13/2025 10:39 PM EDT [facility] Hematocrit 34.0(L) 35 - 47 % 01/13/2025 10:39 PM EDT [facility] MCV 85 80 - 100 fL 01/13/2025 10:39 PM EDT [facility] MCH 27.1 27 - 34 pg 01/13/2025 10:39 PM EDT [facility] MCHC 32.1 32 - 36 g/dL 01/13/2025 10:39 PM EDT [facility] RDW 13.6 11.5 - 15 % 01/13/2025 10:39 PM EDT [facility] Platelet Count 377 150 - 450 X10E9/L 01/13/2025 10:39 PM EDT [facility] MPV 7.0 7 - 12 fL 01/13/2025 10:39 PM EDT [facility] Bands % 2 % 01/13/2025 10:39 PM EDT [facility] Comment:This is an appended report. These results have been appended to a previously preliminary verified report. Neutrophils % 79 % 01/13/2025 10:39 PM EDT [facility] Comment:This is an appended report. These results have been appended to a previously preliminary verified report. Lymphocytes % 9 % 01/13/2025 10:39 PM EDT [facility] Comment:This is an appended report. These results have been appended to a previously preliminary verified report. Monocytes % 9 % 01/13/2025 10:39 PM EDT [facility] Comment:This is an appended report. These results have been appended to a previously preliminary verified report. Atypical Lymphs % 1 % 01/13/2025 10:39 PM EDT [facility] Comment:This is an appended report. These results have been appended to a previously preliminary verified report. Neutrophils Absolute (M) 15.6(H) 1.5 - 6.6 10*3/uL 01/13/2025 10:39 PM EDT [facility] Comment:This is an appended report. These results have been appended to a previously preliminary verified report. Lymphocytes Absolute 2.0 1.0 - 3.5 10*3/uL 01/13/2025 10:39 PM EDT [facility] Comment:This is an appended report. These results have been appended to a previously preliminary verified report. Monocytes Absolute 1.8(H) 0.0 - 0.9 10*3/uL 01/13/2025 10:39 PM EDT [facility] Comment:This is an appended report. These results have been appended to a previously preliminary verified report. Differential Type CELLAVISION DIFFERENTIAL 01/13/2025 10:39 PM EDT [facility] Comment:This is an appended report. These results have been appended to a previously preliminary verified report. Blood Venous blood / Unknown Venipuncture / Unknown 01/13/2025 8:48 PM EDT 01/13/2025 8:54 PM EDT Anna Justice ROUTER SETTER-BAND SAWING MACHINE OPERATOR LAB BLOOD ORDERABLES Final Result [facility] [address] [facility] [place] [address], * Blood culture (01/13/2025 8:48 PM EDT) Only the most recent of2 resultswithin the time period is included. CULTURE RESULTS NO GROWTH 5 DAYS 01/19/2025 3:02 AM EDT [facility] Blood Venous blood / Unknown Central Line / Unknown 01/13/2025 8:48 PM EDT 01/13/2025 8:54 PM EDT Narrative [facility] - 01/19/2025 3:02 AM EDT Suboptimal volume of blood collected, Results may be affected. us Anna Justice APRN-BAND SAWING MACHINE OPERATOR MICROBIOLOGY - GENERA L ORDERABLES Final Result [facility] [address] [place] [address], [place] [phone] * (ABNORMAL) Myoglobin, serum (01/13/2025 8:48 PM EDT) SERUM MYOGLOBIN 154.0(H) 14.3 - 65.8 ng/mL 01/13/2025 9:32 PM EDT [facility] Blood Venous blood / Unknown Venipuncture / Unknown 01/13/2025 8:48 PM EDT 01/13/2025 9:07 PM EDT us Anna Justice ROUTER SETTER-BAND SAWING MACHINE OPERATOR LAB BLOOD ORDERABLES Final Result Performing Organization Address [facility] Co de Phone Number [address] [place] [address], [place] * (ABNORMAL) CK Total (01/13/2025 8:48 PM EDT) CPK 426(H) 24 - 170 U/L 01/13/2025 9:20 PM EDT [facility] Blood Venous blood / Unknown Venipuncture / Unknown 01/13/2025 8:48 PM EDT 01/13/2025 9:07 PM EDT Anna Justice ROUTER SETTER-BAND SAWING MACHINE OPERATOR LAB BLOOD ORDERABLES Final Result Performing Organization Address City/[facility] Co de Phone Number [address] [place] [address], [place] * Critical Care (01/13/2025 8:28 PM EDT) Narrative Leonardo Benson DO - 01/13/2025 8:28 PM EDT Leonardo Benson DO 01/18/2025 9:49 PM Critical Care Performed by: JAM De Jesus Authorized by: Leonardo Benson DO Critical care provider statement: Critical care time (minutes): 30 Critical care was necessary to treat or prevent imminent or life-threatening deterioration of the following conditions: Sepsis Critical care was time spent personally by me on the following activities: Evaluation of patient's response to treatment, examination of patient, obtaining history from patient or surrogate, ordering and performing treatments and interventions, ordering and review of laboratory studies, pulse oximetry, re-evaluation of patient's condition and review of old charts I assumed direction of critical care for this patient from another provider in my specialty: yes Care discussed with: admitting provider Leonardo Benson DO PROCEDURE/MINOR SURGICAL ORDERAB LES Final Result * Adaptic (12/31/2024 3:31 PM EDT) Only the most recent of2 resultswithin the time period is included. Narrative MANUALLY TRANSCRIBED RESULTS - 12/31/2024 3:31 PM EDT Applied to right leg wounds in clinic today. Freddy Esquivel APRN-BAND SAWING MACHINE OPERATOR NURSING COMMUNICATION Fi nal Result MANUALLY TRANSCRIBED RESULTS from Last 3 Months Insurance MEDICARE COUNT INCLUDES THE [facility] MEDICARE COUNT INCLUDES THE [facility] Advance Directives Documents on File Type Date Recorded Patient Supervisor Quilting Expl anation Durable Power of Forensic Nurse 12/08/2024 10:55 AM * DNRCCA DNI (Latest Code Status on File) Date Activated Date Inactivated Comments 01/15/2025 1:49 PM 01/20/2025 2:34 PM * Full Code Date Activated Date Inactivated Comments 01/14/2025 1:27 AM 01/15/2025 1:49 PM * Full Code Date Activated Date Inactivated Comments 11/30/2024 2:08 PM 12/03/2024 12:36 PM * Full Code Date Activated Date Inactivated Comments 11/08/2024 3:51 PM 11/14/2024 11:31 AM * Full Code Date Activated Date Inactivated Comments 10/23/2024 6:54 PM 10/27/2024 5:45 PM Care Teams Certified Nurse Aide Relationship Specialty Start Date End Date Angeline Bridges MD [address] [phone] PCP - General Internal Medicine 11/08/24
--- OUTSIDE RECORDS SUMMARY | 2025-03-30 15:18 | XMS_ITS | CCD ---
Author Organization [facility] Care Team Providers Care Manager Heavy Equipment Name Role Phone Pam Moses Consulting Unavailable Edgar Friend Admitting UnavailMarta Alatorre Primary Care Unavailable Torrie Ruano Attending Unavailable Cody Cormier Consulting Unavailable MorrisonElroy rivera Consulting Unavailable Geovanny Cruz Consulting Unavail able Sunitha Nathan Consulting Unavailable Danilo Short Consulting Unavailab Lizeth Zarco Consulting Unavailable Gerda Turner Consulting Unavailable Carol Titus Consulting Unavailab Richard Land Consulting Unavailable DR MARILY MORRIS Primary Care Unavailable RAZ LEVINE Attending Unavailable RAZ LEVINE Admitting Unavailable Marta Dee MD Primary Care Provider [phone] WILL ENAMORADO Attending Unavailable JACLYN POTTS Attending Unavailable BONNIE, JACLYN Colbert Attending Unavailable BONNIE, JACLYN Colbert Attending Unavailable BONNIE, JACLYN Colbert Attending Unavailable Marta Dee MD Primary Care Provider Angeline Bridges MD Primary Care Provider MATT ANGELINE Referring Unavailable MATT, ANGELINE Primary Care Unavailable Angeline Bridges MD Primary Care Provider Angeline Bridges MD Primary Care Provider [phone] SURJIT CORDOVA Referring Unavailable SURJIT CORDOVA Referring Unavailable SURJIT CORDOVA Attending Unavailable SURJIT CORDOVA Attending Unavailable FREDDY MANZO Attending Unavailable MATT, ANGELINE Referring Unavailable MATT, ANGELINE Primary Care Unavailable PAM BROTHERS Referring Unavailable DEE, MARTA L Primary Care Unavailable CHAN SHARMA Attending Unavailable MATT, ANGELINE Primary Care Unavailable MATT, ANGELINE Primary Care Unavailable LASHANDA MYRICK Attending Unavailable KEE LERMA Referring Unavailable MATT, ANGELINE Primary Care Unavailable KEE LERMA Referring Unavailable MATT, ANGELINE Primary Care Unavailable KEE LERMA Referring Unavailable MATT, ANGELINE Primary Care Unavailable KEE LERMA Referring Unavailable MATT, AGNELINE Primary Care Unavailable AMADO MONTOYA Attending Unavailable MATT, ANGELINE Referring Unavailable MATT, ANGELINE Primary Care Unavailable MATT, ANGELINE Primary Care Unavailable MATTHEW, MUHAMID M Admitting Unavailable ONLY), IP WOUND CARE SERVICES (INPATIENT Consult ing Unavailable CAM HANNON Attending Unavailable MATT, ANGELINE Primary Care Unavailable MATTHEW, MUHAMID M Admitting Unavailable CLAUDIA TAYLOR Consulting Unavailable STEVEN MERCADO Attending Unavailable ONLY), IP WOUND CARE SERVICES (INPATIENT Consult ing Unavailable ELISEO MOODY Consulting Unavailable DAVID POTTS Consulting Unavailable JACLYN POTTS Consulting Unavailable CODIE MARCH Attending Unavailable MATT, ANGELINE Referring Unavailable MATT, ANGELINE Primary Care Unavailable MATT, ANGELINE Primary Care Unavailable ONLY), IP WOUND CARE SERVICES (INPATIENT Consult ing Unavailable WILKES, RUQIYYA T Admitting Unavailable WILKES, RUQIYYA T Attending Unavailable CODIE MARCH Attending Unavailable MARTA DEE Referring Unavailable MATT, ANGELINE Primary Care Unavailable MATT, ANGELINE Primary Care Unavailable MATTHEW, MUHAMID M Admitting Unavailable ONLY), IP WOUND CARE SERVICES (INPATIENT Consult ing Unavailable STEVEN MERCADO Attending Unavailable DAVID POTTS Consulting Unavailable MATT, ANGELINE Referring Unavailable MATT, ANGELINE Primary Care Unavailable STEVEN MERCADOIT Referring Unavailable MATT, ANGELINE Primary Care Unavailable WILBER WEBSTER Referring Unavailable WILBER WEBSTER Referring Unavailable WILKES, RUQIYYA T Referring Unavailable MATT, ANGELINE Primary Care Unavailable WILBER WEBSTER Referring Unavailable STEVEN MERCADO NIMIT Referring Unavailable MATT, ANGELINE Primary Care Unavailable Allergies Allergy Classification Reported Allergen(s) Allergy Type Date of Onset Reaction(s) Facility (5 sources) Diatrizoate; Translations: [DIATRIZOATE MEGLUMINE] Drug Allergy 7 Repository (6 sources) Iodine; Translations: [IODINE] Drug Allergy 6 Repository (1 source) levoFLOXacin Drug Allergy 2 Repository (6 sources) Lisinopril; Translations: [LISINOPRIL] Drug Allergy 2 Repository (5 sources) Propoxyphene; Translations: [PROPOXYPHENE] Drug Allergy 7 Repository (1 source) Iodine (And Iodine Containting Drugs) Drug allergy (disorder) 9 [facility] Repository (1 source) levoFLOXacin Drug Allergy 9 [facility] Repository (1 source) Propoxyphene Drug Allergy 9 [facility] Repository (4 sources) rOPINIRole; Translations: [ROPINIROLE] Drug Allergy 9 [facility] Repository (12 sources) Capsaicin; Translations: [CAPSAICIN] Drug Allergy 3 Unknown [facility] (20 sources) Iodine Drug Allergy 6 Rash [facility] (20 sources) levoFLOXacin Drug Allergy 7 Unknown, Rash [facility] (20 sources) Propoxyphene Drug Allergy 7 Unknown, Rash [facility] (10 sources) Iodinated Contrast Media; Translations: [IODINATED CONTRAST MEDIA] Drug Allergy 7 Unknown [facility] (3 sources) Lisinopril Propensity to adverse reactions 2 Cough [facility] (9 sources) rOPINIRole Drug Allergy 4 Unknown, Other (See Comments) [facility] (20 sources) Diatrizoate Drug Allergy 7 Rash [facility] (20 sources) Lisinopril Drug Allergy 7 Cough [facility] (6 sources) levoFLOXacin; Translations: [LEVOFLOXACIN IN D5W] Drug Allergy 6 [facility] Repository (6 sources) Capsaicin Drug Allergy 3 Other (See Comments) [facility] Medications Current Medications Medication Drug Class(es) [...] daily for 11 days. 11/13/2024 11/24/2024 Active collagenase 0.25 unt/mg topical ointment (4 sources) Collagen-specific Enzyme collagenase (SANTYL) ointment Apply 1 Application topically daily. Apply to right calf and ankle wounds. 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 12/04/2024 Active furosemide 40 mg oral tablet (20 sources) [...] mg in pm. 90 tablet 6 07/31/2024 Active glucagon (rdna) 1 mg injecti on (1 [...] unt/ml injectable solution (20 sources) Insulin Analog insulin aspart U -100 (NovoLOG) 100 unit/mL injection Inject under the skin in the morning and at noon and in the evening. Inject before meals. As directed per sliding scale. Active Insulin Aspart ( NovoLOG) 100 UNIT/ML solution [...] insulin glargine 100 un t/ml pen injector (8 sources) Insulin Analog Start: 11-09-2024 inject 0.6 mL by sub cutaneous injection in the morning insulin glargine (LANTUS) 100 unit/mL injection Inject 0.6 mL (60 Units total) under the skin in the morning. Active 3 ml insulin lispro 100 unt/ml pen [...] Start: 12-03-2024 take 2 tablets by mo ut once daily levothyroxine (SYNTHROID, LEVOTHROID) 25 MCG tablet Take 2 tablets (50 mcg total) by mouth nightly. 12/03/2024 Active Start: 11-09-2024 Start: 04-19-2024 End: 04-19-2024 take [...] in the morning. 11/23/2022 Active magnesium oxide 400 mg oral tablet (20 sources) Start: 02-14-2024 take 1 tablet by mouth in the morning magnesium oxide (MAGOX) 400 mg tablet Take 1 tablet (400 mg total) by mouth in the morning. 90 tablet 3 02/14/2024 Active Start: 02-14-2024 50 ml magnesium sulfate 40 m g/ml injection (2 sources) Start: 11-13-2024 Start: 11-13-2024 midodrine hydrochloride 5 mg oral tablet (1 source) alpha-Adrenergic Agonist Start: 01-19-2025 take 1 tablet by mouth three times daily as needed midodrine (PROAMATINE) 5 mg tablet Take 1 tablet (5 mg total) by mouth 3 (three) times a day as needed (SBP less than 90). 01/19/2025 Active naloxone (NARCAN) 4 mg/actuation spray,non-aerosol nasal spray (7 sources) Start: 12-03-2024 naloxone (NARCAN) 4 mg/actuation spray,non-aerosol nasal spray Administer 1 spray (4 mg total) into alternating nostrils as needed for opioid reversal. 12/03/2024 Suspended Start: 12-03-2024 naloxone (NARC AN) 4 mg/actuation spray,non-aerosol nasal spray Administer 1 spray (4 mg total) into alternating nostrils as needed for opioid reversal. 12/03/2024 Active 2 ml ondansetron 2 mg/ml injection (1 source) Serotonin-3 Receptor Antagonist Start: 11-08-2024 take 4 mg intravenously every six hours as needed for nausea and vomiting pantoprazole 40 mg delayed release oral tablet (20 sources) Proton Pump Inhibitor Start: 11-08-2024 polyethylene glycol 3350 18038 mg powder for oral solution (4 sources) Osmotic Laxative polyethylene gl ycol (GLYCOLAX) 17 gram packet Take 17 g by mouth in the morning. Active microencapsulated potassium chloride 20 meq extended release oral tablet (5 sources) Start: 11-15-19 take 1 tablet by mouth in the morning potassium chloride (KLOR-CON M 20) 20 MEQ CR tablet Take 1 tablet (20 mEq total) by mouth in the morning. 11/14/2024 Active Start: 11-14-2024 Start: 11-14-2024 Start: 11-13-2024 povidone-iodine 100 mg/ml topical solution (4 sources) Antiseptic povidone-iodine (BETADINE) 10 % external solution Apply 1 Application topically daily. Apply daily and as needed to bilateral heel and toe wounds Active pregabalin 25 mg oral capsule (11 sources) Start: End: take 1 capsule by mouth in the [...] 11/13/2024 11/16/2024 Active Start: 11-10-2024 End: 11-16-2024 125 ml sodium chloride 9 mg/ ml prefilled syringe (20 sources) Start: 11-13-2024 sodium chlorid e 0.9 % injection Infuse 10 mL into a venous catheter as needed for line care. 5 mL 01/19/2025 Active Start: 11-08-2024 take 10 mL intravenously every twelve hours Start: 11-08-2024 spironolactone 25 mg oral tablet (10 sources) Aldosterone Antagonist Start: 11-13-2024 take 1 tablet by mouth in the morning spironolactone (ALDACTONE) 25 mg tablet Take 1 tablet (25 mg total) by mouth in the morning. 11/13/2024 Active Start: 11-13-2024 tamsulosin hydrochloride 0.4 mg oral capsule (12 sources) alpha-Adrenergic Sree Start: 11-13-2024 take 1 capsule by mouth once daily tamsulosin (FLOMAX) 0.4 mg capsule Take 1 capsule (0.4 mg total) by mouth nightly. 11/13/2024 Active traZODone hydrochloride 50 mg oral tablet (4 sources) Serotonin Reuptake Inhibitor take 1 tablet by mouth once daily traZODone (DESYREL) 50 mg tablet Take 1 tablet (50 mg total) by mouth nightly. Active vitamin b12 1 mg oral tablet (12 sources) Vitamin B12 Start: 11-14-2024 take 1 tablet by mouth in the morning cyanocobalamin 1000 MCG tablet Take 1 tablet (1,000 mcg total) by mouth in the morning. 11/14/2024 Active Start: 11-14-2024 Start: 11-14-2024 Start: 11-11-2024 zolpidem tartrate 5 mg oral tablet (20 [...] take 2000 mg intravenously every twenty-four hours 1 ml fentaNYL 0.05 mg/ml injection (1 source) Opioid Agonist Start: 11-10-2024 End: 11-10-2024 1 ml heparin sodium, porcine 5000 unt/ml [...] care appointment with practitioner for pain control[place] [address] mg powder for oral suspension (1 source) Start: 11-09-2024 End: 11-09-2024 Problems Active Problems Problem Classification Problem Date Documented Date Episodic/Chronic Acute and unspecified renal failure (1 source) Unspecified kidney failure; Translations: [N19 - Unspecified kidney failure] Onset: 2 Chronic Acute and unspecified renal failure (10 sources) Acute renal failure syndrome; Translations: [Acute kidney failure, unspecified] Onset: 5 11-14-2024 Episodic Anxiety disorders (1 source) Generalized anxiety disorder; Translations: [Generalized anxiety disorder] Onset: 5 Chronic Chronic kidney disease (13 sources) Chronic kidney disease, unspecified; Translations: [Chronic [...] Onset: 5 Episodic Congestive heart failure; nonhypertensive (8 sources) Chronic diastolic heart failure; Translations: [Chronic diastolic (congestive) heart failure] Onset: 5 11-30-2024 Chronic Congestive heart failure; nonhypertensive (1 source) Congestive heart failure; nonhypertensive; Translations: [I50.9 - Heart failure, unspecified] Onset: 2 Deficiency and other anemia (7 sources) Iron deficiency anemia; Translations: [Iron deficiency [...] ulcer] 07-24-2023 Chronic Diabetes mellitus without complication (13 sources) Type 1 diabetes mellitus; Translations: [Type 1 diabetes mellitus without complications] Onset: 5 11-08-2024 Chronic Disorders of lipid metabolism (2 sources) Mixed hyperlipidemia; Translations: [Mixed hyperlipidemia] 07-08-2024 Chronic E Codes: Fall (1 source) Fall Onset: 5 Essential hypertension (20 sources) Essential (primary) hypertension; Translations: [Essential hypertension] Onset: 2 07-08-2024 Chronic Genitourinary symptoms and ill-defined conditions (3 sources) Retention of urine; Translations: [Retention of urine, unspecified] Onset: 5 11-14-2024 Episodic Heart valve disorders (20 sources) Rheumatic tricuspid insufficiency; 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] Onset: 2 01-15-2022 Chronic Malaise and fatigue (4 sources) Asthenia; Translations: [Weakness] Onset: 5 01-14-2025 Episodic Miscellaneous mental health disorders (1 source) Primary insomnia; Translations: [Primary insomnia] Onset: Chronic Nutritional deficiencies (2 sources) Vitamin D deficiency; Translations: [Vitamin D deficiency, unspecified] 07-08-2024 Chronic Other aftercare (5 sources) Patient encounter status; Translations: [jail (current) use of insulin] 07-24-2023 Episodic Other aftercare (2 sources) Long-term current use of insulin; 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..] [EKG]; Translations: [Abnormal electrocardiogram (ECG) (EKG)] Onset: 5 Episodic Peripheral and visceral atherosclerosis (12 sources) Peripheral vascular disease; Translations: [Peripheral vascular disease, unspecified] 11-08-2024 Chronic Pulmonary heart disease (20 sources) Pulmonary hypertension, unspecified; Translations: [Pulmonary hypertension] Onset: 2 01-15-2022 Chronic Residual codes; unclassified (7 sources) Urinary catheter in situ; Translations: [Presence of other specified devices] Onset: 5 12-01-2024 Episodic Residual codes; unclassified (1 source) Localized edema; Translations: [Localized edema] Onset: 5 Episodic Residual codes; unclassified (1 source) Other specified personal risk factors, not elsewhere classified; Translations: [Other specified personal risk factors, not elsewhere classified] Onset: 5 Episodic Thyroid disorders (17 sources) 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; 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] Dystrophia unguium; Translations: [Nail dystrophy] 02-18-2024 Episodic Skin and subcutaneous tissue infections (12 sources) Cellulitis of lower limb; Translations: [Cellulitis of unspecified part of limb] Onset: 10-23-2024 10-27-2024 Episodic Results Test Name Value Interpretation Reference Range Facility ALL BASIC METABOLIC PANELon 01-29-2025 Anion gap [Moles/Vol] 8.9 mmol/L [facility] Calcium [Mass/Vol] 9.1 mg/dL 8.5 - 10. 1 mg/dL [facility] Chloride [Moles/Vol] 107 mmol/L 98 - 10 7 mmol/L [facility] CO2 [Moles/Vol] 31.3 mmol/L 21.0 - 32.0 mmol/L [facility] Creatinine [Mass/Vol] 2.1 mg/dL High 0.55 - 1.02 mg/dL [facility] GFR/1.73 sq M.predicted CKD-EPI (S/P/Bld) [Vol rate/Area] 27 Low >=60 mL/min/1.73 m 2 [facility] Glucose [Mass/Vol] 108 mg/dL High 74 - 106 mg/dL [facility] Interpretation and review of laboratory results Abnormal [facility] Potassium [Moles/Vol] 4.2 mmol/L 3.5 - 5.1 mmol/L [facility] Sodium [Moles/Vol] 143 mmol/L 136 - 145 mmol/L [facility] TBH EGFR-NON AF [place] 22 Low >=60 mL/min/1.73 m 2 [facility] Urea nitrogen [Mass/Vol] 35 mg/dL High 7.0 - 18.0 mg/dL [facility] Urea nitrogen/Creatinine [Mass ratio] 16.7 mg/mg [facility]20-2025 Erythrocyte distribution width (RBC) [Ratio] 14.1 % Normal 11.5-15 [facility] Comment on above: Performed By: #### C BC ####[facility] ([facility])[address] [place] [address] VIR Hematocrit (Bld) [Volume fraction] 31.0 % Low 35-47 [facility] Comment on above: Performed By: #### C BC ####[facility] ([facility])[address] [place] [address] VIR Hemoglobin (Bld) [Mass/Vol] 10.1 g/dL Low 11.7-15.5 [facility] Comment on above: Performed By: #### C BC ####[facility] ([address] [place] [address] VIR MCH (RBC) [Entitic mass] 27.6 pg Normal 27-34 [facility] Comment on above: Performed By: #### C BC ####[facility] ([address] [place] [address] VIR MCHC (RBC) [Mass/Vol] 32.6 g/dL Normal 32-36 [facility] Comment on above: Performed By: #### C BC ####[facility] ([address] [address] VIR MCV (RBC) [Entitic vol] 85 fL Normal 80-100 [facility] Comment on above: Performed By: #### C BC ####[facility] ([address] [address] VIR Platelet mean volume (Bld) [Entitic vol] 7.0 fL Normal 7-12 [facility] Comment on above: Performed By: #### C BC ####[facility] ([address] [address] VIR Platelets (Bld) [#/Vol] 295 10*3/uL Normal 150-450 [facility] Comment on above: Performed By: #### C BC ####[facility] ([address] [place] [address] VIR RBC COUNT 3.66 X10E12/L Low 3.8-5.2 [facility] Comment on above: Performed By: #### C BC ####[facility] ([address] [place] [address] VIR WBC (Bld) [#/Vol] 13.5 10*3/uL High 4-11 [facility] Comment on above: Performed By: #### C BC ####[facility] [place] [address] VIR COMPREHENSIVE METABOLIC PANE José Luis 01-20-2025 Albumin [Mass/Vol] 2.3 g/dL Low 3.2-5.[address] [facility] Comment on above: Performed By: #### C MP ####[facility] ([place] [address] [place] [address] VIR ALP [Catalytic activity/Vol] 76 U/L Normal 39-130 [facility] Comment on above: Performed By: #### C MP ####[facility] ([place] [address] [place] [address] VIR ALT [Catalytic activity/Vol] 9 U/L Normal <=31 [facility] Comment on above: Performed By: #### C MP ####[facility] ([place] [address] [place] [address] VIR Anion gap [Moles/Vol] 10 mmol/L Normal 5-15 [facility] Comment on above: Performed By: #### C MP ####[facility] ([place] [address] [place] [address] VIR AST [Catalytic activity/Vol] 11 U/L Normal <=41 [facility] Comment on above: Performed By: #### C MP ####[facility] ([place] [address] [place] [address] VIR Bilirubin [Mass/Vol] 0.7 mg/dL Normal 0.3-1.2 [facility] Comment on above: Performed By: #### C MP ####[facility] ([place] [address] [place] [address] VIR Calcium [Mass/Vol] 8.5 mg/dL Normal 8.5-10.[address] [facility] Comment on above: Performed By: #### C MP ####[facility] ([place])[address] [place] [address] VIR Chloride [Moles/Vol] 98 mmol/L Normal 98-109 [facility] Comment on above: Performed By: #### C MP ####[facility] ([facility])[address] [place] [address] [place] [address] VIR CO2 [Moles/Vol] 27 mmol/L Normal 22-32 [facility] Comment on above: Performed By: #### C MP ####[facility] ([address] [place] [address] VIR Creatinine [Mass/Vol] 1.34 mg/dL High 0.40-1.00 [facility] Comment on above: Result Comment: METH OD TRACEABLE TO IDMS STANDARD Performed By: #### C MP ####[facility] ([address] [place] [address] VIR GFR/1.73 sq M.predicted among non-blacks MDRD (S/P/Bld) [Vol rate/Area] 39 mL/min/{1.73_m2} Low >=60 [facility] Comment on above: Result Comment: eGFR not reported due to non-numeric value for Creatinine.Reported eGFR is based on theCKD-EPI 2020 equation that doesnot use a race coefficient. Performed By: #### C MP ####[facility] ([address] [place] [address] VIR Glucose [Mass/Vol] 119 mg/dL High 65-[address] [facility] Comment on above: Performed By: #### C MP ####[facility] ([address] [place] [address] VIR Potassium [Moles/Vol] 3.9 mmol/L Normal 3.5-5.0 [facility] Comment on above: Performed By: #### C MP ####[facility] ([address] [place] [address] VIR Protein [Mass/Vol] 6.0 g/dL Normal 6.0-8.[address] [facility] Comment on above: Performed By: #### C MP ####[facility] ([address] [place] [address] VIR Sodium [Moles/Vol] 135 mmol/L Normal 134-[address] [facility] Comment on above: Performed By: #### C MP ####[facility] ([address] [place] [address] VIR Urea nitrogen [Mass/Vol] 29 mg/dL High 5-27 [facility] Comment on above: Performed By: #### C MP ####[facility] ([address] [place] [address] VIR MAGNESIUMon 01-20-2025 Magnesium [Mass/Vol] 2.3 mg/dL Normal 1.8-2.6 [facility] Comment on above: Performed By: #### M G ####[facility] ([address] [place] [address] VIR BEDSIDE GLUCOSEon 01-19-2025 Glucose [Mass/Vol] 209 mg/dL High 65-[address] [facility] Comment on above: Performed By: #### B EDG ####[facility] ([address] [place] [address] VIR Glucose [Mass/Vol] 311 mg/dL High 65-[address] [facility] Comment on above: Performed By: #### B EDG ####[facility] ([address] [place] [address] VIR Glucose [Mass/Vol] 127 mg/dL High 65-[address] [facility] Comment on above: Performed By: #### B EDG ####[facility] ([address] [place] [address] VIR Glucose [Mass/Vol] 115 mg/dL High 65-99 [facility] [facility] Comment on above: Performed By: #### B EDG ####[facility] ([address] [address] VIR CBC (NO DIFF)on 01-19-2025 Erythrocyte distribution width (RBC) [Ratio] 13.5 % Normal 11.5-15 [facility] Comment on above: Performed By: #### C BC ####[facility] ([address] [address] VIR Hematocrit (Bld) [Volume fraction] 31.8 % Low 35-47 [facility] Comment on above: Performed By: #### C BC ####[facility] ([address] [address] VIR Hemoglobin (Bld) [Mass/Vol] 10.5 g/dL Low 11.7-15.5 [facility] Comment on above: Performed By: #### C BC ####[facility] ([address] [address] VIR MCH (RBC) [Entitic mass] 27.9 pg Normal 27-34 [facility] Comment on above: Performed By: #### C BC ####[facility] ([address] [address] VIR MCHC (RBC) [Mass/Vol] 33.0 g/dL Normal 32-36 [facility] [place] Comment on above: Performed By: #### C BC ####[facility] ([address] [address] VIR MCV (RBC) [Entitic vol] 85 fL Normal 80-100 [facility] Comment on above: Performed By: #### C BC ####[facility] ([address] [place] [address] VIR Platelet mean volume (Bld) [Entitic vol] 7.0 fL Normal 7-12 [facility] Comment on above: Performed By: #### C BC ####[facility] ([place] [address] [place] [address] VIR Platelets (Bld) [#/Vol] 307 10*3/uL Normal 150-450 [facility] Comment on above: Performed By: #### C BC ####[facility] ([address] [place] [address] VIR RBC COUNT 3.75 X10E12/L Low 3.8-5.2 [facility] Comment on above: Performed By: #### C BC ####[facility] ([address] [place] [address] VIR WBC (Bld) [#/Vol] 13.1 10*3/uL High 4-11 [facility] Comment on above: Performed By: #### C BC ####[facility] ([address] [place] [address] VIR COMPREHENSIVE METABOLIC PANE José Luis 01-19-2025 Albumin [Mass/Vol] 2.4 g/dL Low 3.2-5.[address] [facility] Comment on above: Performed By: #### C MP ####[facility] ([address] [place] [address] VIR ALP [Catalytic activity/Vol] 78 U/L Normal 39-130 [facility] Comment on above: Performed By: #### C MP ####[facility] ([address] [place] [address] VIR ALT [Catalytic activity/Vol] 11 U/L Normal <=31 [facility] Comment on above: Performed By: #### C MP ####[facility] ([place] [address] [place] [address] VIR Anion gap [Moles/Vol] 10 mmol/L Normal 5-15 [facility] [place] Comment on above: Performed By: #### C MP ####[facility] ([address] [place] [address] VIR AST [Catalytic activity/Vol] 12 U/L Normal <=41 [facility] Comment on above: Performed By: #### C MP ####[facility] ([address] [place] [address] VIR Bilirubin [Mass/Vol] 0.4 mg/dL Normal 0.3-1.2 [facility] Comment on above: Performed By: #### C MP ####[facility] ([address] [place] [address] VIR Calcium [Mass/Vol] 8.8 mg/dL Normal 8.5-10.[address] [facility] Comment on above: Performed By: #### C MP ####[facility] ([address] [place] [address] VIR Chloride [Moles/Vol] 101 mmol/L Normal 98-109 [facility] Comment on above: Performed By: #### C MP ####[facility] ([address] [place] [address] VIR CO2 [Moles/Vol] 30 mmol/L Normal 22-32 [facility] Comment on above: Performed By: #### C MP ####[facility] ([address] [place] [address] VIR Creatinine [Mass/Vol] 1.20 mg/dL High 0.40-1.00 [facility] [place] Comment on above: Result Comment: METH OD TRACEABLE TO IDMS STANDARD Performed By: #### C MP ####[facility] ([address] [place] [address] VIR GFR/1.73 sq M.predicted among non-blacks MDRD (S/P/Bld) [Vol rate/Area] 45 mL/min/{1.73_m2} Low >=60 [facility] Comment on above: Result Comment: eGFR not reported due to non-numeric value for Creatinine.Reported eGFR is based on theCKD-EPI 2020 equation that doesnot use a race coefficient. Performed By: #### C MP ####[facility] ([address] [place] [address] VIR Glucose [Mass/Vol] 78 mg/dL Normal 65-[address] [facility] Comment on above: Performed By: #### C MP ####[facility] ([address] [place] [address] VIR Potassium [Moles/Vol] 3.9 mmol/L Normal 3.5-5.0 [facility] [place] Comment on above: Performed By: #### C MP ####[facility] ([address] [place] [address] VIR Protein [Mass/Vol] 6.2 g/dL Normal 6.0-8.[address] [facility] Comment on above: Performed By: #### C MP ####[facility] ([address] [place] [address] VIR Sodium [Moles/Vol] 141 mmol/L Normal 134-[address] [facility] Comment on above: Performed By: #### C MP ####[facility] ([address] [place] [address] VIR Urea nitrogen [Mass/Vol] 25 mg/dL Normal 5-27 [facility] Comment on above: Performed By: #### C MP ####[facility] ([address] [place] [address] VIR MAGNESIUMon 01-19-2025 Magnesium [Mass/Vol] 2.6 mg/dL Normal 1.8-2.6 [facility] Comment on above: Performed By: #### M G ####[facility] ([address] [place] [address] VIR MR LOWER LEG LT WO CONTon MR LOWER LEG LT WO CONT Normal [facility] MR LOWER LEG RT WO CONTon MR LOWER LEG RT WO CONT Normal [facility] BEDSIDE GLUCOSEon 01-18-2025 Glucose [Mass/Vol] 233 mg/dL High 65-[address] [facility] Comment on above: Performed By: #### B EDG ####[facility] ([facility])[address] [place] [address] [place] [address] VIR Glucose [Mass/Vol] 162 mg/dL High 65-[address] [facility] Comment on above: Performed By: #### B EDG ####[facility] ([address] [place] [address] VIR Glucose [Mass/Vol] 166 mg/dL High 65-[address] [facility] Comment on above: Performed By: #### B EDG ####[facility] ([address] [place] [address] VIR CBC (NO DIFF)on 01-18-2025 Erythrocyte distribution width (RBC) [Ratio] 13.5 % Normal 11.5-15 [facility] Comment on above: Performed By: #### C BC ####[facility] ([address] [place] [address] VIR Hematocrit (Bld) [Volume fraction] 32.3 % Low 35-47 [facility] Comment on above: Performed By: #### C BC ####[facility] ([address] [place] [address] VIR Hemoglobin (Bld) [Mass/Vol] 10.7 g/dL Low 11.7-15.5 [facility] Comment on above: Performed By: #### C BC ####[facility] ([address] [place] [address] VIR MCH (RBC) [Entitic mass] 28.0 pg Normal 27-34 [facility] Comment on above: Performed By: #### C BC ####[facility] ([address] [place] [address] VIR MCHC (RBC) [Mass/Vol] 33.1 g/dL Normal 32-36 [facility] [place] Comment on above: Performed By: #### C BC ####[facility] ([address] [place] [address] VIR MCV (RBC) [Entitic vol] 85 fL Normal 80-100 [facility] Comment on above: Performed By: #### C BC ####[facility] ([address] [place] [address] VIR Platelet mean volume (Bld) [Entitic vol] 7.4 fL Normal 7-12 [facility] Comment on above: Performed By: #### C BC ####[facility] ([address] [place] [address] VIR Platelets (Bld) [#/Vol] 293 10*3/uL Normal 150-450 [facility] Comment on above: Performed By: #### C BC ####[facility] ([address] [place] [address] VIR RBC COUNT 3.82 X10E12/L Normal 3.8-5.2 [facility] Comment on above: Performed By: #### C BC ####[facility] ([address] [place] [address] VIR WBC (Bld) [#/Vol] 11.9 10*3/uL High 4-11 [facility] Comment on above: Performed By: #### C BC ####[facility] ([address] [place] [address] VIR COMPREHENSIVE METABOLIC PANE José Luis 01-18-2025 Albumin [Mass/Vol] 2.3 g/dL Low 3.2-5.[address] [facility] Comment on above: Performed By: #### C MP ####[facility] ([place] [address] [place] [address] VIR ALP [Catalytic activity/Vol] 80 U/L Normal 39-130 [facility] Comment on above: Performed By: #### C MP ####[facility] ([place] [address] [place] [address] VIR ALT [Catalytic activity/Vol] 9 U/L Normal <=31 [facility] Comment on above: Performed By: #### C MP ####[facility] ([place] [address] [place] [address] VIR Anion gap [Moles/Vol] 8 mmol/L Normal 5-15 [facility] [place] Comment on above: Performed By: #### C MP ####[facility] ([place] [address] [place] [address] VIR AST [Catalytic activity/Vol] 11 U/L Normal <=41 [facility] Comment on above: Performed By: #### C MP ####[facility] ([place] [address] [place] [address] VIR Bilirubin [Mass/Vol] 0.5 mg/dL Normal 0.3-1.2 [facility] Comment on above: Performed By: #### C MP ####[facility] ([place] [address] [place] [address] VIR Calcium [Mass/Vol] 8.6 mg/dL Normal 8.5-10.[address] [facility] Comment on above: Performed By: #### C MP ####[facility] ([place] [address] [place] [address] VIR Chloride [Moles/Vol] 99 mmol/L Normal 98-109 [facility] Comment on above: Performed By: #### C MP ####[facility] ([address] [address] VIR CO2 [Moles/Vol] 29 mmol/L Normal 22-32 [facility] Comment on above: Performed By: #### C MP ####[facility] ([address] [address] VIR Creatinine [Mass/Vol] 1.22 mg/dL High 0.40-1.00 [facility] [place] Comment on above: Result Comment: METH OD TRACEABLE TO IDMS STANDARD Performed By: #### C MP ####[facility] ([address] [address] VIR GFR/1.73 sq M.predicted among non-blacks MDRD (S/P/Bld) [Vol rate/Area] 44 mL/min/{1.73_m2} Low >=60 [facility] Comment on above: Result Comment: eGFR not reported due to non-numeric value for Creatinine.Reported eGFR is based on theCKD-EPI 2020 equation that doesnot use a race coefficient. Performed By: #### C MP ####[facility] ([address] [address] VIR Glucose [Mass/Vol] 104 mg/dL High 65-[address] [facility] Comment on above: Performed By: #### C MP ####[facility] ([address] [address] VIR Potassium [Moles/Vol] 3.5 mmol/L Normal 3.5-5.0 [facility] [place] Comment on above: Performed By: #### C MP ####[facility] ([address] [address] VIR Protein [Mass/Vol] 6.2 g/dL Normal 6.0-8.[address] [facility] Comment on above: Performed By: #### C MP ####[facility] ([address] [place] [address] VIR Sodium [Moles/Vol] 136 mmol/L Normal 134-[address] [facility] Comment on above: Performed By: #### C MP ####[facility] ([address] [place] [address] VIR Urea nitrogen [Mass/Vol] 26 mg/dL Normal 5-27 [facility] Comment on above: Performed By: #### C MP ####[facility] ([address] [place] [address] VIR MAGNESIUMon 01-18-2025 Magnesium [Mass/Vol] 2.4 mg/dL Normal 1.8-2.6 [facility] Comment on above: Performed By: #### M G ####[facility] ([address] [address] VIR Magnesium [Mass/Vol] 1.9 mg/dL Normal 1.8-2.6 [facility] Comment on above: Performed By: #### M G ####[facility] ([address] [address] VIR MR FOOT LT WO CONTon 025 MR FOOT LT WO CONT Normal [facility] MR FOOT RT WO CONTon 025 MR FOOT RT WO CONT Normal [facility] POTASSIUMon 01-18-2025 Potassium [Moles/Vol] 4.2 mmol/L Normal 3.5-5.0 [facility] [place] Comment on above: Performed By: #### K ####[facility] ([address] [place] [address] VIR VANCOMYCIN, RANDOMon 025 VANCOMYCIN 18.7 ug/mL Normal 5.0-40.0 [facility] Comment on above: Order Comment: Peak 30-40 ug/mLTrough 5-20 ug/ml Performed By: #### V ANC ####[facility] ([address] [place] [address] VIR BEDSIDE GLUCOSEon 01-17-2025 Glucose [Mass/Vol] 231 mg/dL High 65-[address] [facility] Comment on above: Performed By: #### B EDG ####[facility] ([address] [place] [address] VIR Glucose [Mass/Vol] 184 mg/dL High 65-[address] [facility] Comment on above: Performed By: #### B EDG ####[facility] ([address] [place] [address] VIR Glucose [Mass/Vol] 129 mg/dL High 65-[address] [facility] Comment on above: Performed By: #### B EDG ####[facility] ([address] [address] VIR Glucose [Mass/Vol] 144 mg/dL High 65-[address] [facility] Comment on above: Performed By: #### B EDG ####[facility] ([address] [address] VIR CBC (NO DIFF)on 01-17-2025 Erythrocyte distribution width (RBC) [Ratio] 13.8 % Normal 11.5-15 [facility] Comment on above: Performed By: #### C BC ####[facility] ([address] [address] VIR Hematocrit (Bld) [Volume fraction] 32.0 % Low 35-47 [facility] Comment on above: Performed By: #### C BC ####[facility] ([address] [address] VIR Hemoglobin (Bld) [Mass/Vol] 10.4 g/dL Low 11.7-15.5 [facility] Comment on above: Performed By: #### C BC ####[facility] ([address] [address] VIR MCH (RBC) [Entitic mass] 27.5 pg Normal 27-34 [facility] Comment on above: Performed By: #### C BC ####[facility] ([address] [address] VIR MCHC (RBC) [Mass/Vol] 32.5 g/dL Normal 32-36 [facility] [place] Comment on above: Performed By: #### C BC ####[facility] ([address] [address] VIR MCV (RBC) [Entitic vol] 85 fL Normal 80-100 [facility] Comment on above: Performed By: #### C BC ####[facility] ([address] [address] VIR Platelet mean volume (Bld) [Entitic vol] 7.3 fL Normal 7-12 [facility] Comment on above: Performed By: #### C BC ####[facility] ([address] [address] VIR Platelets (Bld) [#/Vol] 288 10*3/uL Normal 150-450 [facility] Comment on above: Performed By: #### C BC ####[facility] ([address] [address] VIR RBC COUNT 3.77 X10E12/L Low 3.8-5.2 [facility] Comment on above: Performed By: #### C BC ####[facility] ([address] [address] VIR WBC (Bld) [#/Vol] 11.0 10*3/uL Normal 4-11 [facility] Comment on above: Performed By: #### C BC ####[facility] ([facility] [place] [address] VIR COMPREHENSIVE METABOLIC PANE José Luis 01-17-2025 Albumin [Mass/Vol] 2.3 g/dL Low 3.2-5.[address] [facility] Comment on above: Performed By: #### C MP ####[facility] ([address] [place] [address] VIR ALP [Catalytic activity/Vol] 86 U/L Normal 39-130 [facility] Comment on above: Performed By: #### C MP ####[facility] ([address] [place] [address] VIR ALT [Catalytic activity/Vol] 11 U/L Normal <=31 [facility] Comment on above: Performed By: #### C MP ####[facility] ([address] [place] [address] VIR Anion gap [Moles/Vol] 9 mmol/L Normal 5-15 [facility] [place] Comment on above: Performed By: #### C MP ####[facility] ([address] [place] [address] VIR AST [Catalytic activity/Vol] 11 U/L Normal <=41 [facility] Comment on above: Performed By: #### C MP ####[facility] ([address] [place] [address] VIR Bilirubin [Mass/Vol] 0.6 mg/dL Normal 0.3-1.2 [facility] Comment on above: Performed By: #### C MP ####[facility] ([address] [place] [address] VIR Calcium [Mass/Vol] 8.6 mg/dL Normal 8.5-10.[address] [facility] Comment on above: Performed By: #### C MP ####[facility] [place] [address] VIR Chloride [Moles/Vol] 99 mmol/L Normal 98-109 [facility] Comment on above: Performed By: #### C MP ####[facility] ([address] [place] [address] VIR CO2 [Moles/Vol] 30 mmol/L Normal 22-32 [facility] Comment on above: Performed By: #### C MP ####[facility] ([address] [place] [address] VIR Creatinine [Mass/Vol] 1.32 mg/dL High 0.40-1.00 [facility] [place] Comment on above: Result Comment: METH OD TRACEABLE TO IDMS STANDARD Performed By: #### C MP ####[facility] ([address] [place] [address] VIR GFR/1.73 sq M.predicted among non-blacks MDRD (S/P/Bld) [Vol rate/Area] 40 mL/min/{1.73_m2} Low >=60 [facility] Comment on above: Result Comment: eGFR not reported due to non-numeric value for Creatinine.Reported eGFR is based on theCKD-EPI 1 equation that doesnot use a race coefficient. Performed By: #### C MP ####[facility] ([address] [place] [address] VIR Glucose [Mass/Vol] 152 mg/dL High 65-[address] [facility] Comment on above: Performed By: #### C MP ####[facility] ([address] [place] [address] VIR Potassium [Moles/Vol] 4.0 mmol/L Normal 3.5-5.0 [facility] [place] Comment on above: Performed By: #### C MP ####[facility] ([address] [place] [address] VIR Protein [Mass/Vol] 6.0 g/dL Normal 6.0-8.[address] [facility] Comment on above: Performed By: #### C MP ####[facility] ([address] [place] [address] VIR Sodium [Moles/Vol] 138 mmol/L Normal 134-[address] [facility] Comment on above: Performed By: #### C MP ####[facility] ([address] [place] [address] VIR Urea nitrogen [Mass/Vol] 28 mg/dL High 5-27 [facility] Comment on above: Performed By: #### C MP ####[facility] ([address] [place] [address] VIR MAGNESIUMon 01-17-2025 Magnesium [Mass/Vol] 2.0 mg/dL Normal 1.8-2.6 [facility] Comment on above: Performed By: #### M G ####[facility] ([address] [place] [address] VIR VANCOMYCIN, TROUGHon 025 VANCOMYCIN TROUGH 21.8 ug/mL High 5.0-20.0 [facility] Comment on above: Performed By: #### V ANCTR ####[facility] ([address] [place] [address] VIR BEDSIDE GLUCOSEon 01-16-2025 Glucose [Mass/Vol] 86 mg/dL Normal 65-[address] [facility] Comment on above: Performed By: #### B EDG ####[facility] ([address] [place] [address] VIR Glucose [Mass/Vol] 115 mg/dL High 65-[address] [facility] Comment on above: Performed By: #### B EDG ####[facility] ([address] [place] [address] VIR Glucose [Mass/Vol] 136 mg/dL High 65-[address] [facility] Comment on above: Performed By: #### B EDG ####[facility] ([facility])[address] [place] [address] [place] [address] VIR Glucose [Mass/Vol] 53 mg/dL Critically low 65-99 [facility] Comment on above: Performed By: #### B EDG ####[facility] ([facility])[address] [place] [address] [place] [address] VIR CBC (NO DIFF)on 01-16-2025 Erythrocyte distribution width (RBC) [Ratio] 14.1 % Normal 11.5-15 [facility] Comment on above: Performed By: #### C BC ####[facility] ([address] [place] [address] VIR Hematocrit (Bld) [Volume fraction] 32.7 % Low 35-47 [facility] Comment on above: Performed By: #### C BC ####[facility] ([address] [place] [address] VIR Hemoglobin (Bld) [Mass/Vol] 10.8 g/dL Low 11.7-15.5 [facility] Comment on above: Performed By: #### C BC ####[facility] ([address] [place] [address] VIR MCH (RBC) [Entitic mass] 27.9 pg Normal 27-34 [facility] Comment on above: Performed By: #### C BC ####[facility] ([address] [place] [address] VIR MCHC (RBC) [Mass/Vol] 32.9 g/dL Normal 32-36 [facility] Comment on above: Performed By: #### C BC ####[facility] ([address] [place] [address] VIR MCV (RBC) [Entitic vol] 85 fL Normal 80-100 [facility] Comment on above: Performed By: #### C BC ####[facility] ([address] [place] [address] VIR Platelet mean volume (Bld) [Entitic vol] 7.2 fL Normal 7-12 [facility] Comment on above: Performed By: #### C BC ####[facility] ([address] [place] [address] VIR Platelets (Bld) [#/Vol] 298 10*3/uL Normal 150-450 [facility] Comment on above: Performed By: #### C BC ####[facility] ([address] [place] [address] VIR RBC COUNT 3.86 X10E12/L Normal 3.8-5.2 [facility] Comment on above: Performed By: #### C BC ####[facility] ([address] [place] [address] VIR WBC (Bld) [#/Vol] 13.8 10*3/uL High 4-11 [facility] Comment on above: Performed By: #### C BC ####[facility] ([address] [place] [address] VIR COMPREHENSIVE METABOLIC PANE José Luis 01-16-2025 Albumin [Mass/Vol] 2.3 g/dL Low 3.2-5.[address] [facility] Comment on above: Performed By: #### C MP ####[facility] ([address] [place] [address] VIR ALP [Catalytic activity/Vol] 87 U/L Normal 39-130 [facility] Comment on above: Performed By: #### C MP ####[facility] ([address] [place] [address] VIR ALT [Catalytic activity/Vol] 13 U/L Normal <=31 [facility] Comment on above: Performed By: #### C MP ####[facility] ([place] [address] [place] [address] VIR Anion gap [Moles/Vol] 10 mmol/L Normal 5-15 [facility] [place] Comment on above: Performed By: #### C MP ####[facility] ([place] [address] [place] [address] VIR AST [Catalytic activity/Vol] 13 U/L Normal <=41 [facility] Comment on above: Performed By: #### C MP ####[facility] ([place] [address] [place] [address] VIR Bilirubin [Mass/Vol] 0.7 mg/dL Normal 0.3-1.2 [facility] Comment on above: Performed By: #### C MP ####[facility] ([place] [address] [place] [address] VIR Calcium [Mass/Vol] 8.5 mg/dL Normal 8.5-10.[address] [facility] Comment on above: Performed By: #### C MP ####[facility] ([place] [address] [place] [address] VIR Chloride [Moles/Vol] 100 mmol/L Normal 98-109 [facility] Comment on above: Performed By: #### C MP ####[facility] ([place] [address] [place] [address] VIR CO2 [Moles/Vol] 28 mmol/L Normal 22-32 [facility] Comment on above: Performed By: #### C MP ####[facility] ([place] [address] [place] [address] VIR Creatinine [Mass/Vol] 1.24 mg/dL High 0.40-1.00 [facility] [place] Comment on above: Result Comment: METH OD TRACEABLE TO IDMS STANDARD Performed By: #### C MP ####[facility] ([address] [address] VIR GFR/1.73 sq M.predicted among non-blacks MDRD (S/P/Bld) [Vol rate/Area] 43 mL/min/{1.73_m2} Low >=60 [facility] Comment on above: Result Comment: Repo rted eGFR is based on theCKD-EPI 2020 equation that doesnot use a race coefficient. Performed By: #### C MP ####[facility] ([address] [address] VIR Glucose [Mass/Vol] 45 mg/dL Critically low 65-99 [facility] Comment on above: Performed By: #### C MP ####[facility] ([address] [address] VIR Potassium [Moles/Vol] 3.8 mmol/L Normal 3.5-5.0 [facility] [place] Comment on above: Performed By: #### C MP ####[facility] ([address] [address] VIR Protein [Mass/Vol] 6.2 g/dL Normal 6.0-8.[address] [facility] Comment on above: Performed By: #### C MP ####[facility] ([address] [address] VIR Sodium [Moles/Vol] 138 mmol/L Normal 134-[address] [facility] Comment on above: Performed By: #### C MP ####[facility] ([address] [address] VIR Urea nitrogen [Mass/Vol] 29 mg/dL High 5-27 [facility] Comment on above: Performed By: #### C MP ####[facility] ([address] [place] [address] VIR MAGNESIUMon 01-16-2025 Magnesium [Mass/Vol] 2.1 mg/dL Normal 1.8-2.6 [facility] Comment on above: Performed By: #### M G ####[facility] ([address] [address] VIR PROCALCITONINon 01-16-2025 PROCALCITONIN 0.52 ng/mL High <0.05 [facility] Comment on above: Order Comment: <0.50 ng/mL - Low risk of severe sepsis and/or septic shock.<2.00 ng/mL - Recommend retesting within 6-24 hours.>2.00 ng/mL - High risk of sepsis and/or septic shock. Performed By: #### P DAVID ####[address] [address] VIR BEDSIDE GLUCOSEon 01-15-2025 Glucose [Mass/Vol] 198 mg/dL High 65-[address] [facility] Comment on above: Performed By: #### B EDG ####[facility] ([address] [address] VIR Glucose [Mass/Vol] 144 mg/dL High 65-[address] [facility] Comment on above: Performed By: #### B EDG ####[facility] ([address] [place] [address] VIR Glucose [Mass/Vol] 99 mg/dL Normal 65-[address] [facility] Comment on above: Performed By: #### B EDG ####[facility] ([address] [address] VIR CBC (NO DIFF)on 01-15-2025 Erythrocyte distribution width (RBC) [Ratio] 13.6 % Normal 11.5-15 [facility] Comment on above: Performed By: #### C BC ####[facility] ([address] [address] VIR Hematocrit (Bld) [Volume fraction] 31.7 % Low 35-47 [facility] Comment on above: Performed By: #### C BC ####[facility] ([address] [address] VIR Hemoglobin (Bld) [Mass/Vol] 10.4 g/dL Low 11.7-15.5 [facility] Comment on above: Performed By: #### C BC ####[facility] ([address] [address] VIR MCH (RBC) [Entitic mass] 28.0 pg Normal 27-34 [facility] Comment on above: Performed By: #### C BC ####[facility] ([address] [address] VIR MCHC (RBC) [Mass/Vol] 32.8 g/dL Normal 32-36 [facility] [place] Comment on above: Performed By: #### C BC ####[facility] ([address] [address] VIR MCV (RBC) [Entitic vol] 85 fL Normal 80-100 [facility] Comment on above: Performed By: #### C BC ####[facility] ([address] [place] [address] VIR Platelet mean volume (Bld) [Entitic vol] 7.3 fL Normal 7-12 [facility] Comment on above: Performed By: #### C BC ####[facility] ([address] [address] VIR Platelets (Bld) [#/Vol] 312 10*3/uL Normal 150-450 [facility] Comment on above: Performed By: #### C BC ####[facility] ([address] [place] [address] VIR RBC COUNT 3.72 X10E12/L Low 3.8-5.2 [facility] Comment on above: Performed By: #### C BC ####[facility] ([address] [place] [address] VIR WBC (Bld) [#/Vol] 14.6 10*3/uL High 4-11 [facility] Comment on above: Performed By: #### C BC ####[facility] ([address] [place] [address] VIR COMPREHENSIVE METABOLIC PANE José Luis 01-15-2025 Albumin [Mass/Vol] 2.3 g/dL Low 3.2-5.[address] [facility] Comment on above: Performed By: #### C MP ####[facility] ([address] [place] [address] VIR ALP [Catalytic activity/Vol] 90 U/L Normal 39-130 [facility] Comment on above: Performed By: #### C MP ####[facility] ([address] [place] [address] VIR ALT [Catalytic activity/Vol] 12 U/L Normal <=31 [facility] Comment on above: Performed By: #### C MP ####[facility] ([address] [place] [address] VIR Anion gap [Moles/Vol] 8 mmol/L Normal 5-15 [facility] Comment on above: Performed By: #### C MP ####[facility] ([address] [place] [address] VIR AST [Catalytic activity/Vol] 14 U/L Normal <=41 [facility] Comment on above: Performed By: #### C MP ####[facility] ([place] [address] [place] [address] VIR Bilirubin [Mass/Vol] 0.6 mg/dL Normal 0.3-1.2 [facility] Comment on above: Performed By: #### C MP ####[facility] ([facility])[address] [place], [place] [address] [place] [address] VIR Calcium [Mass/Vol] 8.5 mg/dL Normal 8.5-10.[address] [facility] Comment on above: Performed By: #### C MP ####[facility] ([address] [place] [address] VIR Chloride [Moles/Vol] 101 mmol/L Normal 98-109 [facility] Comment on above: Performed By: #### C MP ####[facility] ([address] [place] [address] VIR CO2 [Moles/Vol] 27 mmol/L Normal 22-32 [facility] Comment on above: Performed By: #### C MP ####[facility] ([address] [place] [address] VIR Creatinine [Mass/Vol] 1.27 mg/dL High 0.40-1.00 [facility] [place] Comment on above: Result Comment: METH OD TRACEABLE TO IDMS STANDARD Performed By: #### C MP ####[facility] ([address] [place] [address] VIR GFR/1.73 sq M.predicted among non-blacks MDRD (S/P/Bld) [Vol rate/Area] 42 mL/min/{1.73_m2} Low >=60 [facility] Comment on above: Result Comment: eGFR not reported due to non-numeric value for Creatinine.Reported eGFR is based on theCKD-EPI 2020 equation that doesnot use a race coefficient. Performed By: #### C MP ####[facility] ([address] [place] [address] VIR Glucose [Mass/Vol] 105 mg/dL High 65-[address] [facility] Comment on above: Performed By: #### C MP ####[facility] ([facility])[address] [place], [place] [address] [place] [address] VIR Potassium [Moles/Vol] 3.8 mmol/L Normal 3.5-5.0 [facility] [place] Comment on above: Performed By: #### C MP ####[facility] ([address] [place] [address] VIR Protein [Mass/Vol] 5.8 g/dL Low 6.0-8.[address] [facility] Comment on above: Performed By: #### C MP ####[facility] ([address] [place] [address] VIR Sodium [Moles/Vol] 136 mmol/L Normal 134-[address] [facility] Comment on above: Performed By: #### C MP ####[facility] ([address] [place] [address] VIR Urea nitrogen [Mass/Vol] 34 mg/dL High 5-27 [facility] Comment on above: Performed By: #### C MP ####[facility] ([address] [place] [address] VIR MAGNESIUMon 01-15-2025 Magnesium [Mass/Vol] 2.1 mg/dL Normal 1.8-2.6 [facility] Comment on above: Performed By: #### M G ####[facility] ([address] [place] [address] VIR POTASSIUMon 01-15-2025 Potassium [Moles/Vol] 4.3 mmol/L Normal 3.5-5.0 [facility] [place] Comment on above: Performed By: #### K ####[facility] ([address] [place] [address] VIR PROCALCITONINon 01-15-2025 PROCALCITONIN 0.90 ng/mL High <0.05 [facility] Comment on above: Order Comment: <0.50 ng/mL - Low risk of severe sepsis and/or septic shock.<2.00 ng/mL - Recommend retesting within 6-24 hours.>2.00 ng/mL - High risk of sepsis and/or septic shock. Performed By: #### P DAVID ####[facility] ([address] [place] [address] VIR BASIC METABOLIC PANELon 07-3 Anion gap [Moles/Vol] 8 mmol/L Normal 5-15 [facility] [place] Comment on above: Performed By: #### B MP ####[address] [place] [address] VIR Calcium [Mass/Vol] 8.6 mg/dL Normal 8.5-10.[address] [facility] Comment on above: Performed By: #### B MP ####[facility] ([address] [place] [address] VIR Chloride [Moles/Vol] 101 mmol/L Normal 98-109 [facility] Comment on above: Performed By: #### B MP ####[address] [place] [address] VIR CO2 [Moles/Vol] 26 mmol/L Normal 22-32 [facility] Comment on above: Performed By: #### B MP ####[facility] ([address] [place] [address] VIR Creatinine [Mass/Vol] 1.45 mg/dL High 0.40-1.00 [facility] [place] Comment on above: Result Comment: METH OD TRACEABLE TO IDMS STANDARD Performed By: #### B MP ####[facility] ([address] [place] [address] VIR GFR/1.73 sq M.predicted among non-blacks MDRD (S/P/Bld) [Vol rate/Area] 36 mL/min/{1.73_m2} Low >=60 [facility] Comment on above: Result Comment: eGFR not reported due to non-numeric value for Creatinine.Reported eGFR is based on theCKD-EPI 2020 equation that doesnot use a race coefficient. Performed By: #### B MP ####[facility] ([facility])[address] [place] [address] [place] [address] VIR Glucose [Mass/Vol] 73 mg/dL Normal 65-[address] [facility] Comment on above: Performed By: #### B MP ####[facility] ([address] [place] [address] VIR Potassium [Moles/Vol] 3.8 mmol/L Normal 3.5-5.0 [facility] [place] Comment on above: Performed By: #### B MP ####[facility] ([address] [place] [address] VIR Sodium [Moles/Vol] 135 mmol/L Normal 134-[address] [facility] Comment on above: Performed By: #### B MP ####[facility] ([address] [place] [address] VIR Urea nitrogen [Mass/Vol] 43 mg/dL High 5-27 [facility] Comment on above: Performed By: #### B MP ####[facility] ([address] [place] [address] VIR BEDSIDE GLUCOSEon 01-14-2025 Glucose [Mass/Vol] 91 mg/dL Normal 65-[address] [facility] Comment on above: Performed By: #### B EDG ####[facility] ([address] [place] [address] VIR Glucose [Mass/Vol] 127 mg/dL High 65-[address] [facility] Comment on above: Performed By: #### B EDG ####[facility] ([facility])[address] [place] [address] [place] [address] VIR Glucose [Mass/Vol] 107 mg/dL High 65-[address] [facility] Comment on above: Performed By: #### B EDG ####[facility] ([facility])[address] [place] [address] [place] [address] VIR Glucose [Mass/Vol] 58 mg/dL Low 65-[address] [facility] Comment on above: Performed By: #### B EDG ####[facility] ([address] [place] [address] VIR CBC (NO DIFF)on 01-14-2025 Erythrocyte distribution width (RBC) [Ratio] 13.7 % Normal 11.5-15 [facility] Comment on above: Performed By: #### C BC ####[facility] ([address] [place] [address] VIR Hematocrit (Bld) [Volume fraction] 32.2 % Low 35-47 [facility] Comment on above: Performed By: #### C BC ####[facility] ([address] [place] [address] VIR Hemoglobin (Bld) [Mass/Vol] 10.5 g/dL Low 11.7-15.5 [facility] Comment on above: Performed By: #### C BC ####[facility] ([address] [place] [address] VIR MCH (RBC) [Entitic mass] 27.5 pg Normal 27-34 [facility] Comment on above: Performed By: #### C BC ####[facility] ([address] [place] [address] VIR MCHC (RBC) [Mass/Vol] 32.7 g/dL Normal 32-36 [facility] [place] Comment on above: Performed By: #### C BC ####[facility] ([address] [place] [address] VIR MCV (RBC) [Entitic vol] 84 fL Normal 80-100 [facility] Comment on above: Performed By: #### C BC ####[facility] ([address] [place] [address] VIR Platelet mean volume (Bld) [Entitic vol] 7.3 fL Normal 7-12 [facility] Comment on above: Performed By: #### C BC ####[facility] ([address] [place] [address] VIR Platelets (Bld) [#/Vol] 301 10*3/uL Normal 150-450 [facility] Comment on above: Performed By: #### C BC ####[facility] ([address] [place] [address] VIR RBC COUNT 3.82 X10E12/L Normal 3.8-5.2 [facility] Comment on above: Performed By: #### C BC ####[facility] ([address] [place] [address] VIR WBC (Bld) [#/Vol] 20.2 10*3/uL High 4-11 [facility] Comment on above: Performed By: #### C BC ####[facility] ([address] [place] [address] VIR LACTATE W/ REFLEXon 01-15-20 25 LACTATE W/REFLEX 1.3 mmol/L Normal 0.4-2.0 [facility] Comment on above: Order Comment: Resul t did not trigger repeat Lactate,re-order if needed. Performed By: #### L ACTS ####[facility] ([address] [place] [address] VIR PROCALCITONINon 01-14-2025 PROCALCITONIN 1.57 ng/mL High <0.05 [facility] Comment on above: Order Comment: <0.50 ng/mL - Low risk of severe sepsis and/or septic shock.<2.00 ng/mL - Recommend retesting within 6-24 hours.>2.00 ng/mL - High risk of sepsis and/or septic shock. Performed By: #### P DAVID ####[facility] ([facility])[address] [place] [address].[place] [address] VIR XR FOOT LT 2 VWSon 5 XR FOOT LT 2 VWS Normal [facility] XR FOOT RT 2 VWSon 5 XR FOOT RT 2 VWS Normal [facility] BLOOD CULTUREon 01-13-2025 Bacteria identified Cx Nom (Bld) CULTURE RESULTS NO GROWTH 5 DAYS Normal [facility] Comment on above: Order Comment: *SIRS Criteria: [...] be affected. Performed By: #### B C ####[facility] ([facility])[address] [facility] [address] [address] VIR CBC WITH AUTO DIFFERENTIALon 01-13-2025 Band form neutrophils/100 WBC (Bld) 2 % Normal [facility] Comment on above: Result Comment: This is an appended report. These results have been appended to a previously preliminary verified report. Performed By: #### C BCA ####[facility] ([facility])[address] [place] [address].[place] [address] VIR CELLAVISION ATYPICAL LYMPHOCYTES RELATIVE PERCENT BY MANUAL COUNT 1 % Normal [facility] Comment on above: Result Comment: This is an appended report. These results have been appended to a previously preliminary verified report. Performed By: #### C BCA ####[facility] ([address] [address] VIR CELLAVISION DIFFERENTIAL TYPE CELLAVISION DIFFERENTIAL Normal [facility] Comment on above: Result Comment: This is an appended report. These results have been appended to a previously preliminary verified report. Performed By: #### C BCA ####[facility] ([address] [address] VIR CELLAVISION LYMPHOCYTES ABSOLUTE COUNT (10*3/UL) BY MANUAL COUNT 2.0 10*3/uL Normal 1.0-3.5 [facility] Comment on above: Result Comment: This is an appended report. These results have been appended to a previously preliminary verified report. Performed By: #### C BCA ####[facility] ([address] [address] VIR CELLAVISION LYMPHOCYTES RELATIVE PERCENT BY MANUAL COUNT 9 % Normal [facility] Comment on above: Result Comment: This is an appended report. These results have been appended to a previously preliminary verified report. Performed By: #### C BCA ####[facility] ([address] [address] VIR CELLAVISION MONOCYTES ABSOLUTE COUNT (10*3/UL) IN BLOOD BY MANUAL COUNT 1.8 10*3/uL High 0.0-0.9 [facility] Comment on above: Result Comment: This is an appended report. These results have been appended to a previously preliminary verified report. Performed By: #### C BCA ####[facility] ([address] [address] VIR CELLAVISION MONOCYTES RELATIVE PERCENT BY MANUAL COUNT 9 % Normal [facility] Comment on above: Result Comment: This is an appended report. These results have been appended to a previously preliminary verified report. Performed By: #### C BCA ####[facility] ([address] [address] VIR CELLAVISION NEUTROPHILS ABSOLUTE COUNT BY MANUAL COUNT 15.6 10*3/uL High 1.5-6.6 [facility] Comment on above: Result Comment: This is an appended report. These results have been appended to a previously preliminary verified report. Performed By: #### C BCA ####[facility] ([address] [address] VIR CELLAVISION NEUTROPHILS RELATIVE PERCENT BY MANUAL COUNT 79 % Normal [facility] Comment on above: Result Comment: This is an appended report. These results have been appended to a previously preliminary verified report. Performed By: #### C BCA ####[facility] ([address] [address] VIR Erythrocyte distribution width (RBC) [Ratio] 13.6 % Normal 11.5-15 [facility] Comment on above: Performed By: #### C BCA ####[facility] ([address] [address] VIR Hematocrit (Bld) [Volume fraction] 34.0 % Low 35-47 [facility] Comment on above: Performed By: #### C BCA ####[facility] ([address] [address] VIR Hemoglobin (Bld) [Mass/Vol] 10.9 g/dL Low 11.7-15.5 [facility] Comment on above: Performed By: #### C BCA ####[facility] ([address] [address] VIR MCH (RBC) [Entitic mass] 27.1 pg Normal 27-34 [facility] Comment on above: Performed By: #### C BCA ####[facility] ([address] [address] VIR MCHC (RBC) [Mass/Vol] 32.1 g/dL Normal 32-36 [facility] Comment on above: Performed By: #### C BCA ####[facility] ([address] [place] [address] VIR MCV (RBC) [Entitic vol] 85 fL Normal 80-100 [facility] Comment on above: Performed By: #### C BCA ####[facility] ([address] [place] [address] VIR Platelet mean volume (Bld) [Entitic vol] 7.0 fL Normal 7-12 [facility] Comment on above: Performed By: #### C BCA ####[facility] ([address] [place] [address] VIR Platelets (Bld) [#/Vol] 377 10*3/uL Normal 150-450 [facility] Comment on above: Performed By: #### C BCA ####[facility] ([address] [place] [address] VIR RBC COUNT 4.02 X10E12/L Normal 3.8-5.2 [facility] Comment on above: Performed By: #### C BCA ####[facility] ([address] [place] [address] VIR WBC (Bld) [#/Vol] 19.3 10*3/uL High 4-11 [facility] Comment on above: Performed By: #### C BCA ####[facility] ([address] [place] [address] VIR CK TOTALon 01-13-2025 CPK 426 U/L High 24-170 [facility] Comment on above: Performed By: #### C PK ####[facility] ([address] [place] [address] VIR COMPREHENSIVE METABOLIC PANE José Luis 01-13-2025 Albumin [Mass/Vol] 2.7 g/dL Low 3.2-5.[address] [facility] Comment on above: Performed By: #### C MP ####[facility] ([address] [place] [address] VIR ALP [Catalytic activity/Vol] 89 U/L Normal 39-130 [facility] Comment on above: Performed By: #### C MP ####[facility] ([address] [place] [address] VIR ALT [Catalytic activity/Vol] 15 U/L Normal <=31 [facility] Comment on above: Performed By: #### C MP ####[facility] ([address] [place] [address] VIR Anion gap [Moles/Vol] 7 mmol/L Normal 5-15 [facility] [place] Comment on above: Performed By: #### C MP ####[facility] ([address] [place] [address] VIR AST [Catalytic activity/Vol] 25 U/L Normal <=41 [facility] Comment on above: Performed By: #### C MP ####[facility] ([address] [place] [address] VIR Bilirubin [Mass/Vol] 0.5 mg/dL Normal 0.3-1.2 [facility] Comment on above: Performed By: #### C MP ####[facility] ([address] [place] [address] VIR Calcium [Mass/Vol] 8.6 mg/dL Normal 8.5-10.[address] [facility] Comment on above: Performed By: #### C MP ####[facility] ([address] [place] [address] VIR Chloride [Moles/Vol] 98 mmol/L Normal 98-109 [facility] Comment on above: Performed By: #### C MP ####[facility] ([address] [place] [address] VIR CO2 [Moles/Vol] 26 mmol/L Normal 22-32 [facility] Comment on above: Performed By: #### C MP ####[facility] ([address] [place] [address] VIR Creatinine [Mass/Vol] 1.51 mg/dL High 0.40-1.00 [facility] [place] Comment on above: Result Comment: METH OD TRACEABLE TO IDMS STANDARD Performed By: #### C MP ####[facility] ([address] [address] VIR GFR/1.73 sq M.predicted among non-blacks MDRD (S/P/Bld) [Vol rate/Area] 34 mL/min/{1.73_m2} Low >=60 [facility] Comment on above: Result Comment: eGFR not reported due to non-numeric value for Creatinine.Reported eGFR is based on theCKD-EPI 1 equation that doesnot use a race coefficient. Performed By: #### C MP ####[facility] ([address] [place] [address] VIR Glucose [Mass/Vol] 180 mg/dL High 65-[address] [facility] Comment on above: Performed By: #### C MP ####[facility] ([address] [place] [address] VIR Potassium [Moles/Vol] 3.8 mmol/L Normal 3.5-5.0 [facility] [place] Comment on above: Performed By: #### C MP ####[facility] ([address] [place] [address] VIR Protein [Mass/Vol] 6.5 g/dL Normal 6.0-8.[address] [facility] Comment on above: Performed By: #### C MP ####[facility] ([address] [place] [address] VIR Sodium [Moles/Vol] 131 mmol/L Low 134-[address] [facility] Comment on above: Performed By: #### C MP ####[facility] ([address] [place] [address] VIR Urea nitrogen [Mass/Vol] 49 mg/dL High 5-27 [facility] Comment on above: Performed By: #### C MP ####[facility] [facility] ([address] [place] [address] VIR LACTATE W/ REFLEXon 01-14-20 25 LACTATE W/REFLEX 1.7 mmol/L Normal 0.4-2.0 [facility] Comment on above: Order Comment: Resul t did not trigger repeat Lactate,re-order if needed. Performed By: #### L ACTS ####[facility] ([address] [place] [address] VIR MAGNESIUMon 01-13-2025 Magnesium [Mass/Vol] 2.3 mg/dL Normal 1.8-2.6 [facility] Comment on above: Performed By: #### M G ####[facility] ([address] [place] [address] VIR MYOGLOBIN, SERUMon 5 SERUM MYOGLOBIN 154.0 ng/mL High 14.3-65.8 [facility] Comment on above: Performed By: #### M YOG ####[facility] ([address] [place] [address] VIR POCT NURSING URINE MACROSCOP IC UAon 01-13-2025 BILIRUBIN EZEQUIEL Negative Normal Negative [facility] Comment on above: Performed By: #### N UM ####[facility] ([address] [place] [address] VIR BLOOD/HGB EZEQUIEL Large Abnormal Negative [facility] Comment on above: Performed By: #### N UM ####[facility] ([place] [address] [place] [address] VIR GLUCOSE EZEQUIEL Negative Normal Negative [facility] Comment on above: Performed By: #### N UM ####[facility] ([place] [address] [place] [address] VIR KETONES EZEQUIEL Negative Normal Negative [facility] Comment on above: Performed By: #### N UM ####[facility] ([place] [address] [place] [address] VIR LEUKOCYTE ESTERASE EZEQUIEL Small Abnormal Negative [facility] Comment on above: Performed By: #### N UM ####[address] [place] [address] VIR NITRITE EZEQUIEL Positive Abnormal Negative [facility] Comment on above: Performed By: #### N UM ####[facility] ([address] [place] [address] VIR PH EZEQUIEL 5.5 Normal 5.0, 6.0, 6.5, 7.0, 7.5, 8.0, 8.5, 5.5 [facility] Comment on above: Performed By: #### N UM ####[facility] ([address] [place] [address] VIR PROTEIN EZEQUIEL 30 mg/dL Abnormal Negative [facility] Comment on above: Performed By: #### N UM ####[address] [place] [address] VIR SPECIFIC GRAVITY EZEQUIEL <=1.005 Abnormal 1.010, 1.015, 1.020, 1.025 [facility] Comment on above: Performed By: #### N UM ####[place] [address] [place] [address] VIR UROBILINOGEN EZEQUIEL 0.2 E.U./dL Normal [facility] Comment on above: Performed By: #### N UM ####[facility] ([facility])[address] [place] [address] VIR URINE CULTUREon 01-13-2025 Bacteria identified Cx Nom (U) CULTURE RESULTS PSEUDOMONAS AERUGINOSA >100,000 CFU/mL Pseudomonas aeruginosa KLEBSIELLA PNEUMONIAE >100,000 CFU/mL Klebsiella pneumoniae ESCHERICHIA COLI 10,000-50,000 CFU/mL Escherichia coli Normal [facility] Comment on above: Order Comment: The u rine of patients with catheters usually becomes colonized. Treatment may not be indicated. Correlate these findings with clinical presentation. If sepsis is suspected, contact laboratory for reporting AST results. Performed By: #### U C ####[facility] (TT)[address] [facility] [address], [place] [address] VIR No Panel Informationon 12-31 Applied to right leg wounds in clinic today. MANUALLY TRANSCRIBED RESULTS [employer] 29on 12-17-2024 29 Addended by: SURJIT CORDOVA on: 12/17/2024 10:47 AM Modules accepted: Orders Normal [facility] Follow-Upon 12-17-2024 Follow-Up [id number] Rupa Gutierrez 1940 F Date Provider Department Center 12/17/2024 499-SURJIT CORDOVA MP ORTHO MPORTHO Family History Family history unknown: Yes Level of Service:68515 [place] OFFICE/OUTPATIENT ESTABLISHED LOW MDM 20 MIN Reason for Visit and Comments: Pain [136] Follow-up [182122] Normal [facility] BEDSIDE GLUCOSEon 12-03-2024 Glucose [Mass/Vol] 209 mg/dL High 65-[address] [facility] Comment on above: Performed By: #### B EDG ####[facility] ([facility])[address] [place] [address].[place] [address] VIR CBC WITH AUTO DIFFERENTIALon 12-03-2024 BASOPHILS ABSOLUTE COUNT (10*3/UL) BY AUTOMATED COUNT 0.1 10*3/uL Normal 0.0-0.2 [facility] Comment on above: Performed By: #### C BCA ####[facility] ([address] [place] [address] VIR BASOPHILS RELATIVE PERCENT BY AUTOMATED COUNT 0.8 % Normal [facility] Comment on above: Performed By: #### C BCA ####[facility] ([address] [place] [address] VIR CELLAVISION DIFFERENTIAL TYPE AUTOMATED DIFFERENTIAL Normal [facility] Comment on above: Performed By: #### C BCA ####[facility] ([address] [place] [address] VIR Eosinophils (Bld) [#/Vol] 0.4 10*3/uL Normal 0.0-0.4 [facility] Comment on above: Performed By: #### C BCA ####[address] [place] [address] VIR EOSINOPHILS RELATIVE PERCENT BY AUTOMATED COUNT 4.0 % Normal [facility] Comment on above: Performed By: #### C BCA ####[address] [place] [address] VIR Erythrocyte distribution width (RBC) [Ratio] 14.0 % Normal 11.5-15 [facility] Comment on above: Performed By: #### C BCA ####[address] [place] [address] VIR Hematocrit (Bld) [Volume fraction] 30.2 % Low 35-47 [facility] Comment on above: Performed By: #### C BCA ####[address] [place] [address] VIR Hemoglobin (Bld) [Mass/Vol] 10.0 g/dL Low 11.7-15.5 [facility] Comment on above: Performed By: #### C BCA ####[facility] ([address] [place] [address] VIR LYMPHOCYTES ABSOLUTE COUNT (10*3/UL) BY AUTOMATED COUNT 3.1 10*3/uL Normal 1.0-3.5 [facility] Comment on above: Performed By: #### C BCA ####[facility] ([address] [place] [address] VIR LYMPHOCYTES RELATIVE PERCENT BY AUTOMATED COUNT 30.6 % Normal [facility] Comment on above: Performed By: #### C BCA ####[facility] ([address] [place] [address] VIR MCH (RBC) [Entitic mass] 29.9 pg Normal 27-34 [facility] Comment on above: Performed By: #### C BCA ####[facility] ([address] [place] [address] VIR MCHC (RBC) [Mass/Vol] 33.2 g/dL Normal 32-36 [facility] Comment on above: Performed By: #### C BCA ####[facility] ([address] [place] [address] VIR MCV (RBC) [Entitic vol] 90 fL Normal 80-100 [facility] Comment on above: Performed By: #### C BCA ####[facility] ([address] [place] [address] VIR MONOCYTES ABSOLUTE COUNT (10*3/UL) BY AUTOMATED COUNT 1.2 10*3/uL High 0.0-0.9 [facility] Comment on above: Performed By: #### C BCA ####[facility] ([address] [place] [address] VIR MONOCYTES RELATIVE PERCENT BY AUTOMATED COUNT 11.6 % Normal [facility] Comment on above: Performed By: #### C BCA ####[facility] ([address] [place] [address] VIR NEUTROPHILS ABSOLUTE COUNT BY AUTOMATED COUNT 5.3 10*3/uL Normal 1.5-6.6 [facility] Comment on above: Performed By: #### C BCA ####[facility] ([facility])[address] [place] [address].[place] [address] VIR NEUTROPHILS RELATIVE PERCENT BY AUTOMATED COUNT 53.0 % Normal [facility] Comment on above: Performed By: #### C BCA ####[facility] ([address] [place] [address] VIR Platelet mean volume (Bld) [Entitic vol] 8.2 fL Normal 7-12 [facility] Comment on above: Performed By: #### C BCA ####[facility] ([address] [place] [address] VIR Platelets (Bld) [#/Vol] 350 10*3/uL Normal 150-450 [facility] Comment on above: Performed By: #### C BCA ####[facility] ([address] [place] [address] VIR RBC COUNT 3.35 X10E12/L Low 3.8-5.2 [facility] Comment on above: Performed By: #### C BCA ####[facility] ([address] [place] [address] VIR WBC (Bld) [#/Vol] 10.0 10*3/uL Normal 4-11 [facility] Comment on above: Performed By: #### C BCA ####[facility] ([address] [place] [address] VIR COMPREHENSIVE METABOLIC PANE José Luis 12-03-2024 Albumin [Mass/Vol] 2.7 g/dL Low 3.2-5.[address] [facility] Comment on above: Performed By: #### C MP ####[facility] ([facility])[address] [place], [place] [address]E.[place] [address] VIR ALP [Catalytic activity/Vol] 78 U/L Normal 39-130 [facility] Comment on above: Performed By: #### C MP ####[facility] ([place] [address] [place] [address] VIR ALT [Catalytic activity/Vol] 11 U/L Normal <=31 [facility] Comment on above: Performed By: #### C MP ####[facility] ([place] [address] [place] [address] VIR Anion gap [Moles/Vol] 12 mmol/L Normal 5-15 [facility] Comment on above: Performed By: #### C MP ####[facility] ([place] [address] [place] [address] VIR AST [Catalytic activity/Vol] 12 U/L Normal <=41 [facility] Comment on above: Performed By: #### C MP ####[facility] ([place] [address] [place] [address] VIR Bilirubin [Mass/Vol] 0.7 mg/dL Normal 0.3-1.2 [facility] Comment on above: Performed By: #### C MP ####[facility] ([place] [address] [place] [address] VIR Calcium [Mass/Vol] 9.1 mg/dL Normal 8.5-10.[address] [facility] Comment on above: Performed By: #### C MP ####[facility] ([place] [address] [place] [address] VIR Chloride [Moles/Vol] 107 mmol/L Normal 98-109 [facility] Comment on above: Performed By: #### C MP ####[facility] ([place] [address] [place] [address] VIR CO2 [Moles/Vol] 24 mmol/L Normal 22-32 [facility] Comment on above: Performed By: #### C MP ####[facility] ([address] [place] [address] VIR Creatinine [Mass/Vol] 1.44 mg/dL High 0.40-1.00 [facility] Comment on above: Result Comment: METH OD TRACEABLE TO IDMS STANDARD Performed By: #### C MP ####[facility] ([address] [place] [address] VIR GFR/1.73 sq M.predicted among non-blacks MDRD (S/P/Bld) [Vol rate/Area] 36 mL/min/{1.73_m2} Low >=60 [facility] Comment on above: Result Comment: eGFR not reported due to non-numeric value for Creatinine.Reported eGFR is based on theCKD-EPI 2020 equation that doesnot use a race coefficient. Performed By: #### C MP ####[facility] ([address] [place] [address] VIR Glucose [Mass/Vol] 149 mg/dL High 65-[address] [facility] Comment on above: Performed By: #### C MP ####[facility] ([address] [place] [address] VIR Potassium [Moles/Vol] 3.9 mmol/L Normal 3.5-5.0 [facility] Comment on above: Performed By: #### C MP ####[facility] ([address] [place] [address] VIR Protein [Mass/Vol] 6.8 g/dL Normal 6.0-8.[address] [facility] Comment on above: Performed By: #### C MP ####[facility] ([address] [place] [address] VIR Sodium [Moles/Vol] 143 mmol/L Normal 134-[address] [facility] Comment on above: Performed By: #### C MP ####[facility] ([facility])[address] [place] [address] [place] [address] VIR Urea nitrogen [Mass/Vol] 44 mg/dL High 5-27 [facility] Comment on above: Performed By: #### C MP ####[facility] ([facility])[address] [place] [address] [place] [address] VIR MAGNESIUMon 12-03-2024 Magnesium [Mass/Vol] 1.8 mg/dL Normal 1.8-2.6 [facility] Comment on above: Performed By: #### M G ####[facility] ([address] [place] [address] VIR BEDSIDE GLUCOSEon 2024 Glucose [Mass/Vol] 151 mg/dL High 65-[address] [facility] Comment on above: Performed By: #### B EDG ####[facility] ([address] [place] [address] VIR Glucose [Mass/Vol] 213 mg/dL High 65-[address] [facility] Comment on above: Performed By: #### B EDG ####[facility] ([address] [address] VIR Glucose [Mass/Vol] 232 mg/dL High 65-[address] [facility] Comment on above: Performed By: #### B EDG ####[facility] ([address] [place] [address] VIR CBC WITH AUTO DIFFERENTIALon 2024 BASOPHILS ABSOLUTE COUNT (10*3/UL) BY AUTOMATED COUNT 0.1 10*3/uL Normal 0.0-0.2 [facility] Comment on above: Performed By: #### C BCA ####[facility] ([address] [place] [address] VIR BASOPHILS RELATIVE PERCENT BY AUTOMATED COUNT 1.1 % Normal [facility] Comment on above: Performed By: #### C BCA ####[facility] ([address] [address] VIR CELLAVISION DIFFERENTIAL TYPE AUTOMATED DIFFERENTIAL Normal [facility] Comment on above: Performed By: #### C BCA ####[facility] ([address] [address] VIR Eosinophils (Bld) [#/Vol] 0.4 10*3/uL Normal 0.0-0.4 [facility] Comment on above: Performed By: #### C BCA ####[facility] ([address] [address] VIR EOSINOPHILS RELATIVE PERCENT BY AUTOMATED COUNT 4.5 % Normal [facility] Comment on above: Performed By: #### C BCA ####[address] [address] VIR Erythrocyte distribution width (RBC) [Ratio] 14.1 % Normal 11.5-15 [facility] Comment on above: Performed By: #### C BCA ####[facility] ([address] [address] VIR Hematocrit (Bld) [Volume fraction] 28.1 % Low 35-47 [facility] Comment on above: Performed By: #### C BCA ####[facility] ([address] [address] VIR Hemoglobin (Bld) [Mass/Vol] 9.3 g/dL Low 11.7-15.5 [facility] Comment on above: Performed By: #### C BCA ####[facility] ([address] [address] VIR LYMPHOCYTES ABSOLUTE COUNT (10*3/UL) BY AUTOMATED COUNT 2.2 10*3/uL Normal 1.0-3.5 [facility] Comment on above: Performed By: #### C BCA ####[facility] ([address] [address] VIR LYMPHOCYTES RELATIVE PERCENT BY AUTOMATED COUNT 23.2 % Normal [facility] Comment on above: Performed By: #### C BCA ####[facility] ([address] [place] [address] VIR MCH (RBC) [Entitic mass] 30.2 pg Normal 27-34 [facility] Comment on above: Performed By: #### C BCA ####[facility] ([address] [address] VIR MCHC (RBC) [Mass/Vol] 33.1 g/dL Normal 32-36 [facility] Comment on above: Performed By: #### C BCA ####[facility] ([address] [address] VIR MCV (RBC) [Entitic vol] 91 fL Normal 80-100 [facility] Comment on above: Performed By: #### C BCA ####[facility] ([address] [address] VIR MONOCYTES ABSOLUTE COUNT (10*3/UL) BY AUTOMATED COUNT 1.2 10*3/uL High 0.0-0.9 [facility] Comment on above: Performed By: #### C BCA ####[facility] ([address] [place] [address] VIR MONOCYTES RELATIVE PERCENT BY AUTOMATED COUNT 12.7 % Normal [facility] Comment on above: Performed By: #### C BCA ####[facility] ([address] [address] VIR NEUTROPHILS ABSOLUTE COUNT BY AUTOMATED COUNT 5.5 10*3/uL Normal 1.5-6.6 [facility] Comment on above: Performed By: #### C BCA ####[facility] ([address] [place] [address] VIR NEUTROPHILS RELATIVE PERCENT BY AUTOMATED COUNT 58.5 % Normal [facility] Comment on above: Performed By: #### C BCA ####[facility] ([address] [place] [address] VIR Platelet mean volume (Bld) [Entitic vol] 8.0 fL Normal 7-12 [facility] Comment on above: Performed By: #### C BCA ####[facility] ([address] [place] [address] VIR Platelets (Bld) [#/Vol] 352 10*3/uL Normal 150-450 [facility] Comment on above: Performed By: #### C BCA ####[facility] ([address] [address] VIR RBC COUNT 3.08 X10E12/L Low 3.8-5.2 [facility] Comment on above: Performed By: #### C BCA ####[facility] ([address] [address] VIR WBC (Bld) [#/Vol] 9.4 10*3/uL Normal 4-[address] [facility] Comment on above: Performed By: #### C BCA ####[facility] ([address] [place] [address] VIR COMPREHENSIVE METABOLIC PANE José Luis 2024 Albumin [Mass/Vol] 2.6 g/dL Low 3.2-5.[address] [facility] Comment on above: Performed By: #### C MP ####[facility] ([address] [place] [address] VIR ALP [Catalytic activity/Vol] 75 U/L Normal 39-130 [facility] Comment on above: Performed By: #### C MP ####[facility] ([address] [place] [address] VIR ALT [Catalytic activity/Vol] 10 U/L Normal <=31 [facility] Comment on above: Performed By: #### C MP ####[facility] ([place] [address] [place] [address] VIR Anion gap [Moles/Vol] 12 mmol/L Normal 5-15 [facility] Comment on above: Performed By: #### C MP ####[facility] ([place] [address] [place] [address] VIR AST [Catalytic activity/Vol] 12 U/L Normal <=41 [facility] Comment on above: Performed By: #### C MP ####[facility] ([place] [address] [place] [address] VIR Bilirubin [Mass/Vol] 0.7 mg/dL Normal 0.3-1.2 [facility] Comment on above: Performed By: #### C MP ####[facility] ([place] [address] [place] [address] VIR Calcium [Mass/Vol] 8.5 mg/dL Normal 8.5-10.[address] [facility] Comment on above: Performed By: #### C MP ####[facility] ([place] [address] [place] [address] VIR Chloride [Moles/Vol] 101 mmol/L Normal 98-109 [facility] Comment on above: Performed By: #### C MP ####[facility] ([place] [address] [place] [address] VIR CO2 [Moles/Vol] 25 mmol/L Normal 22-32 [facility] Comment on above: Performed By: #### C MP ####[facility] ([place] [address] [place] [address] VIR Creatinine [Mass/Vol] 1.82 mg/dL High 0.40-1.00 [facility] Comment on above: Result Comment: METH OD TRACEABLE TO IDMS STANDARD Performed By: #### C MP ####[facility] ([address] [address] VIR GFR/1.73 sq M.predicted among non-blacks MDRD (S/P/Bld) [Vol rate/Area] 27 mL/min/{1.73_m2} Low >=60 [facility] Comment on above: Result Comment: eGFR not reported due to non-numeric value for Creatinine.Reported eGFR is based on theCKD-EPI 2020 equation that doesnot use a race coefficient. Performed By: #### C MP ####[facility] ([address] [address] VIR Glucose [Mass/Vol] 173 mg/dL High 65-[address] [facility] Comment on above: Performed By: #### C MP ####[facility] ([address] [address] VIR Potassium [Moles/Vol] 4.1 mmol/L Normal 3.5-5.0 [facility] Comment on above: Performed By: #### C MP ####[facility] ([address] [address] VIR Protein [Mass/Vol] 6.2 g/dL Normal 6.0-8.[address] [facility] Comment on above: Performed By: #### C MP ####[facility] ([address] [address] VIR Sodium [Moles/Vol] 138 mmol/L Normal 134-[address] [facility] Comment on above: Performed By: #### C MP ####[facility] ([address] [place] [address] VIR Urea nitrogen [Mass/Vol] 66 mg/dL High 5-27 [facility] Comment on above: Performed By: #### C MP ####[facility] ([address] [place] [address] VIR MAGNESIUMon 2024 Magnesium [Mass/Vol] 2.0 mg/dL Normal 1.8-2.6 [facility] Comment on above: Performed By: #### M G ####[facility] ([address] [place] [address] VIR PHOSPHORUSon 2024 Phosphate [Mass/Vol] 3.1 mg/dL Normal 2.4-4.9 [facility] Comment on above: Performed By: #### P HOS ####[facility] ([address] [place] [address] VIR XR ABDOMEN AP 1 VWon 025 XR ABDOMEN AP [address] [facility] BEDSIDE GLUCOSEon 12-01-2024 Glucose [Mass/Vol] 175 mg/dL High 65-[address] [facility] Comment on above: Performed By: #### B EDG ####[facility] ([address] [place] [address] VIR Glucose [Mass/Vol] 253 mg/dL High [address] [place] [address] Comment on above: Performed By: #### B EDG ####[facility] ([address] [place] [address] VIR Glucose [Mass/Vol] 204 mg/dL High 65-[address] [facility] Comment on above: Performed By: #### B EDG ####[facility] ([address] [place] [address] VIR CBC WITH AUTO DIFFERENTIALon 12-01-2024 BASOPHILS ABSOLUTE COUNT (10*3/UL) BY AUTOMATED COUNT 0.1 10*3/uL Normal 0.0-0.2 [facility] Comment on above: Performed By: #### C BCA ####[facility] ([address] [address] VIR BASOPHILS RELATIVE PERCENT BY AUTOMATED COUNT 0.8 % Normal [facility] Comment on above: Performed By: #### C BCA ####[facility] ([address] [address] VIR CELLAVISION DIFFERENTIAL TYPE AUTOMATED DIFFERENTIAL Normal [facility] Comment on above: Performed By: #### C BCA ####[facility] ([address] [address] VIR Eosinophils (Bld) [#/Vol] 0.5 10*3/uL High 0.0-0.4 [facility] Comment on above: Performed By: #### C BCA ####[facility] ([address] [address] VIR EOSINOPHILS RELATIVE PERCENT BY AUTOMATED COUNT 4.7 % Normal [facility] Comment on above: Performed By: #### C BCA ####[facility] ([address] [address] VIR Erythrocyte distribution width (RBC) [Ratio] 14.0 % Normal 11.5-15 [facility] Comment on above: Performed By: #### C BCA ####[facility] ([address] [address] VIR Hematocrit (Bld) [Volume fraction] 29.2 % Low 35-47 [facility] Comment on above: Performed By: #### C BCA ####[facility] ([address] [address] VIR Hemoglobin (Bld) [Mass/Vol] 9.6 g/dL Low 11.7-15.5 [facility] Comment on above: Performed By: #### C BCA ####[facility] ([address] [address] VIR LYMPHOCYTES ABSOLUTE COUNT (10*3/UL) BY AUTOMATED COUNT 2.7 10*3/uL Normal 1.0-3.5 [facility] Comment on above: Performed By: #### C BCA ####[facility] ([address] [address] VIR LYMPHOCYTES RELATIVE PERCENT BY AUTOMATED COUNT 23.8 % Normal [facility] Comment on above: Performed By: #### C BCA ####[facility] ([address] [address] VIR MCH (RBC) [Entitic mass] 29.5 pg Normal 27-34 [facility] Comment on above: Performed By: #### C BCA ####[facility] ([address] [address] VIR MCHC (RBC) [Mass/Vol] 32.8 g/dL Normal 32-36 [facility] [place] Comment on above: Performed By: #### C BCA ####[facility] ([address] [address] VIR MCV (RBC) [Entitic vol] 90 fL Normal 80-100 [facility] Comment on above: Performed By: #### C BCA ####[facility] ([address] [address] VIR MONOCYTES ABSOLUTE COUNT (10*3/UL) BY AUTOMATED COUNT 1.5 10*3/uL High 0.0-0.9 [facility] Comment on above: Performed By: #### C BCA ####[facility] ([address] [address] VIR MONOCYTES RELATIVE PERCENT BY AUTOMATED COUNT 12.7 % Normal [facility] Comment on above: Performed By: #### C BCA ####[facility] ([address] [address] VIR NEUTROPHILS ABSOLUTE COUNT BY AUTOMATED COUNT 6.7 10*3/uL High 1.5-6.6 [facility] Comment on above: Performed By: #### C BCA ####[facility] ([address] [place] [address] VIR NEUTROPHILS RELATIVE PERCENT BY AUTOMATED COUNT 58.0 % Normal [facility] Comment on above: Performed By: #### C BCA ####[facility] ([address] [place] [address] VIR Platelet mean volume (Bld) [Entitic vol] 8.1 fL Normal 7-12 [facility] Comment on above: Performed By: #### C BCA ####[facility] ([address] [place] [address] VIR Platelets (Bld) [#/Vol] 392 10*3/uL Normal 150-450 [facility] Comment on above: Performed By: #### C BCA ####[facility] ([address] [place] [address] VIR RBC COUNT 3.25 X10E12/L Low 3.8-5.2 [facility] Comment on above: Performed By: #### C BCA ####[facility] ([address] [place] [address] VIR WBC (Bld) [#/Vol] 11.5 10*3/uL High 4-11 [facility] Comment on above: Performed By: #### C BCA ####[facility] ([address] [place] [address] VIR COMPREHENSIVE METABOLIC PANE José Luis 12-01-2024 Albumin [Mass/Vol] 2.7 g/dL Low 3.2-5.[address] [facility] Comment on above: Performed By: #### C MP ####[facility] ([address] [place] [address] VIR ALP [Catalytic activity/Vol] 78 U/L Normal 39-130 [facility] Comment on above: Performed By: #### C MP ####[facility] ([place] [address] [place] [address] VIR ALT [Catalytic activity/Vol] 11 U/L Normal <=31 [facility] Comment on above: Performed By: #### C MP ####[facility] ([address] [place] [address] VIR Anion gap [Moles/Vol] 9 mmol/L Normal 5-15 [facility] Comment on above: Performed By: #### C MP ####[facility] ([address] [place] [address] VIR AST [Catalytic activity/Vol] 13 U/L Normal <=41 [facility] Comment on above: Performed By: #### C MP ####[facility] ([address] [place] [address] VIR Bilirubin [Mass/Vol] 0.5 mg/dL Normal 0.3-1.2 [facility] Comment on above: Performed By: #### C MP ####[facility] ([address] [place] [address] VIR Calcium [Mass/Vol] 8.7 mg/dL Normal 8.5-10.[address] [facility] Comment on above: Performed By: #### C MP ####[facility] ([address] [place] [address] VIR Chloride [Moles/Vol] 105 mmol/L Normal 98-109 [facility] Comment on above: Performed By: #### C MP ####[facility] ([address] [place] [address] VIR CO2 [Moles/Vol] 26 mmol/L Normal 22-32 [facility] Comment on above: Performed By: #### C MP ####[facility] ([address] [place] [address] VIR Creatinine [Mass/Vol] 2.09 mg/dL High 0.40-1.00 [facility] Comment on above: Result Comment: METH OD TRACEABLE TO IDMS STANDARD Performed By: #### C MP ####[facility] ([address] [place] [address] VIR GFR/1.73 sq M.predicted among non-blacks MDRD (S/P/Bld) [Vol rate/Area] 23 mL/min/{1.73_m2} Low >=60 [facility] Comment on above: Result Comment: eGFR not reported due to non-numeric value for Creatinine.Reported eGFR is based on theCKD-EPI 2020 equation that doesnot use a race coefficient. Performed By: #### C MP ####[facility] ([address] [place] [address] VIR Glucose [Mass/Vol] 156 mg/dL High 65-[address] [facility] Comment on above: Performed By: #### C MP ####[facility] ([address] [place] [address] VIR Potassium [Moles/Vol] 4.8 mmol/L Normal 3.5-5.0 [facility] Comment on above: Performed By: #### C MP ####[facility] ([address] [place] [address] VIR Protein [Mass/Vol] 6.3 g/dL Normal 6.0-8.[address] [facility] Comment on above: Performed By: #### C MP ####[facility] ([address] [place] [address] VIR Sodium [Moles/Vol] 140 mmol/L Normal 134-[address] [facility] Comment on above: Performed By: #### C MP ####[facility] ([address] [place] [address] VIR Urea nitrogen [Mass/Vol] 77 mg/dL High 5-27 [facility] Comment on above: Performed By: #### C MP ####[facility] ([address] [place] [address] BRAIN WO CONTon CT BRAIN WO CONT Normal [facility] MAGNESIUMon 12-01-2024 Magnesium [Mass/Vol] 2.1 mg/dL Normal 1.8-2.6 [facility] Comment on above: Performed By: #### M G ####[facility] ([address] [place] [address] VIR PHOSPHORUSon 12-01-2024 Phosphate [Mass/Vol] 3.7 mg/dL Normal 2.4-4.9 [facility] Comment on above: Performed By: #### P HOS ####[facility] ([address] [place] [address] VIR APTTon 11-30-2024 aPTT Coag (Bld) [Time] 30 s Normal 26-37 [facility] Comment on above: Performed By: #### P TT ####[facility] ([address] [place] [address] VIR B-TYPE NATRIURETIC PEPTIDEon 11-30-2024 Natriuretic peptide B (Bld) [Mass/Vol] 65 pg/mL Normal <=100 [facility] Comment on above: Performed By: #### B DIRECTOR OF CODING ####[facility] ([address] [place] [address] VIR BEDSIDE GLUCOSEon 11-30-2024 Glucose [Mass/Vol] 174 mg/dL High 65-[address] [facility] Comment on above: Performed By: #### B EDG ####[facility] ([address] [place] [address] VIR Glucose [Mass/Vol] 223 mg/dL High 65-99 [facility] Comment on above: Performed By: #### B EDG ####[facility] ([address] [address] VIR CBC WITH AUTO DIFFERENTIALon 11-30-2024 Band form neutrophils/100 WBC (Bld) 1 % Normal [facility] Comment on above: Result Comment: This is an appended report. These results have been appended to a previously preliminary verified report. Performed By: #### C BCA ####[facility] ([address] [address] VIR CELLAVISION BASOPHILS ABSOLUTE COUNT (10*3/UL) BY MANUAL COUNT 0.1 10*3/uL Normal 0.0-0.2 [facility] Comment on above: Result Comment: This is an appended report. These results have been appended to a previously preliminary verified report. Performed By: #### C BCA ####[facility] ([address] [address] VIR CELLAVISION BASOPHILS RELATIVE PERCENT BY MANUAL COUNT 1 % Normal [facility] Comment on above: Result Comment: This is an appended report. These results have been appended to a previously preliminary verified report. Performed By: #### C BCA ####[facility] ([address] [address] VIR CELLAVISION DIFFERENTIAL TYPE CELLAVISION DIFFERENTIAL Normal [facility] Comment on above: Result Comment: This is an appended report. These results have been appended to a previously preliminary verified report. Performed By: #### C BCA ####[facility] ([address] [address] VIR CELLAVISION EOSINOPHILS ABSOLUTE COUNT (10*3/UL) BY MANUAL COUNT 0.7 10*3/uL High 0.0-0.4 [facility] Comment on above: Result Comment: This is an appended report. These results have been appended to a previously preliminary verified report. Performed By: #### C BCA ####[facility] ([address] [address] VIR CELLAVISION EOSINOPHILS PERCENT BY MANUAL COUNT 6 % Normal [facility] Comment on above: Result Comment: This is an appended report. These results have been appended to a previously preliminary verified report. Performed By: #### C BCA ####[facility] ([address] [address] VIR CELLAVISION LYMPHOCYTES ABSOLUTE COUNT (10*3/UL) BY MANUAL COUNT 4.1 10*3/uL High 1.0-3.5 [facility] Comment on above: Result Comment: This is an appended report. These results have been appended to a previously preliminary verified report. Performed By: #### C BCA ####[facility] ([address] [address] VIR CELLAVISION LYMPHOCYTES RELATIVE PERCENT BY MANUAL COUNT 32 % Normal [facility] Comment on above: Result Comment: This is an appended report. These results have been appended to a previously preliminary verified report. Performed By: #### C BCA ####[facility] ([address] [address] VIR CELLAVISION MONOCYTES ABSOLUTE COUNT (10*3/UL) IN BLOOD BY MANUAL COUNT 1.1 10*3/uL High 0.0-0.9 [facility] Comment on above: Result Comment: This is an appended report. These results have been appended to a previously preliminary verified report. Performed By: #### C BCA ####[facility] ([address] [address] VIR CELLAVISION MONOCYTES RELATIVE PERCENT BY MANUAL COUNT 9 % Normal [facility] Comment on above: Result Comment: This is an appended report. These results have been appended to a previously preliminary verified report. Performed By: #### C BCA ####[facility] ([address] [address] VIR CELLAVISION NEUTROPHILS ABSOLUTE COUNT BY MANUAL COUNT 6.6 10*3/uL Normal 1.5-6.6 [facility] Comment on above: Result Comment: This is an appended report. These results have been appended to a previously preliminary verified report. Performed By: #### C BCA ####[facility] ([address] [address] VIR CELLAVISION NEUTROPHILS RELATIVE PERCENT BY MANUAL COUNT 52 % Normal [facility] Comment on above: Result Comment: This is an appended report. These results have been appended to a previously preliminary verified report. Performed By: #### C BCA ####[facility] ([address] [address] VIR CELLAVISION NUCLEATED RED BLOOD CELLS IN BLOOD BY LIGHT MICROSCOPY 1 Normal [facility] Comment on above: Result Comment: This is an appended report. These results have been appended to a previously preliminary verified report. Performed By: #### C BCA ####[facility] ([address] [address] VIR Erythrocyte distribution width (RBC) [Ratio] 14.2 % Normal 11.5-15 [facility] Comment on above: Performed By: #### C BCA ####[facility] ([address] [address] VIR Hematocrit (Bld) [Volume fraction] 31.8 % Low 35-47 [facility] Comment on above: Performed By: #### C BCA ####[facility] ([address] [address] VIR Hemoglobin (Bld) [Mass/Vol] 10.2 g/dL Low 11.7-15.5 [facility] Comment on above: Performed By: #### C BCA ####[facility] ([address] [address] VIR MCH (RBC) [Entitic mass] 29.1 pg Normal 27-34 [facility] Comment on above: Performed By: #### C BCA ####[facility] ([address] [place] [address] VIR MCHC (RBC) [Mass/Vol] 32.0 g/dL Normal 32-36 [facility] Comment on above: Performed By: #### C BCA ####[facility] ([address] [place] [address] VIR MCV (RBC) [Entitic vol] 91 fL Normal 80-100 [facility] Comment on above: Performed By: #### C BCA ####[facility] ([address] [address] VIR Platelet mean volume (Bld) [Entitic vol] 8.0 fL Normal 7-12 [facility] Comment on above: Performed By: #### C BCA ####[facility] ([address] [address] VIR Platelets (Bld) [#/Vol] 424 10*3/uL Normal 150-450 [facility] Comment on above: Performed By: #### C BCA ####[facility] ([address] [place] [address] VIR RBC COUNT 3.50 X10E12/L Low 3.8-5.2 [facility] Comment on above: Performed By: #### C BCA ####[facility] ([address] [place] [address] VIR WBC (Bld) [#/Vol] 12.7 10*3/uL High 4-11 [facility] Comment on above: Performed By: #### C BCA ####[facility] ([address] [address] VIR COMPREHENSIVE METABOLIC PANE José Luis 11-30-2024 Albumin [Mass/Vol] 2.9 g/dL Low 3.2-5.[address] [facility] Comment on above: Performed By: #### C MP ####[facility] ([place] [address] [place] [address] VIR ALP [Catalytic activity/Vol] 88 U/L Normal 39-130 [facility] Comment on above: Performed By: #### C MP ####[facility] ([place] [address] [place] [address] VIR ALT [Catalytic activity/Vol] 11 U/L Normal <=31 [facility] Comment on above: Performed By: #### C MP ####[facility] ([place] [address] [place] [address] VIR Anion gap [Moles/Vol] 11 mmol/L Normal 5-15 [facility] Comment on above: Performed By: #### C MP ####[facility] ([place] [address] [place] [address] VIR AST [Catalytic activity/Vol] 13 U/L Normal <=41 [facility] Comment on above: Performed By: #### C MP ####[facility] ([place] [address] [place] [address] VIR Bilirubin [Mass/Vol] 0.5 mg/dL Normal 0.3-1.2 [facility] Comment on above: Performed By: #### C MP ####[facility] ([place] [address] [place] [address] VIR Calcium [Mass/Vol] 9.2 mg/dL Normal 8.5-10.[address] [facility] Comment on above: Performed By: #### C MP ####[facility] ([place] [address] [place] [address] VIR Chloride [Moles/Vol] 98 mmol/L Normal 98-109 [facility] Comment on above: Performed By: #### C MP ####[facility] ([facility])[address] [place] [address] VIR CO2 [Moles/Vol] 28 mmol/L Normal 22-32 [facility] Comment on above: Performed By: #### C MP ####[facility] ([address] [place] [address] VIR Creatinine [Mass/Vol] 2.74 mg/dL High 0.40-1.00 [facility] Comment on above: Result Comment: METH OD TRACEABLE TO IDMS STANDARD Performed By: #### C MP ####[facility] ([address] [address] VIR GFR/1.73 sq M.predicted among non-blacks MDRD (S/P/Bld) [Vol rate/Area] 17 mL/min/{1.73_m2} Low >=60 [facility] Comment on above: Result Comment: eGFR not reported due to non-numeric value for Creatinine.Reported eGFR is based on theCKD-EPI 2020 equation that doesnot use a race coefficient. Performed By: #### C MP ####[facility] ([address] [address] VIR Glucose [Mass/Vol] 218 mg/dL High 65-[address] [facility] Comment on above: Performed By: #### C MP ####[facility] ([address] [address] VIR Potassium [Moles/Vol] 5.3 mmol/L High 3.5-5.0 [facility] Comment on above: Performed By: #### C MP ####[facility] ([address] [address] VIR Protein [Mass/Vol] 7.1 g/dL Normal 6.0-8.[address] [facility] Comment on above: Performed By: #### C MP ####[facility] ([facility])[address] [place] [address] VIR Sodium [Moles/Vol] 137 mmol/L Normal 134-[address] [facility] Comment on above: Performed By: #### C MP ####[facility] ([facility])[address] [place] [address] VIR Urea nitrogen [Mass/Vol] 91 mg/dL High 5-27 [facility] Comment on above: Performed By: #### C MP ####[facility] ([facility])[address] [place] [address] VIR FERRITINon 11-30-2024 Ferritin [Mass/Vol] 151 ng/mL Normal 11-307 [facility] Comment on above: Performed By: #### F ERR ####[facility] ([facility])[address], [place] [address] VIR HEMOGLOBIN A1Con 11-30-2024 Glucose [Mass/Vol] 180 mg/dL Normal [facility] Comment on above: Performed By: #### H A1C ####[facility] ([facility])[address], [place] [address] VIR HbA1c (Bld) [Mass fraction] 7.9 % High 4.4-5.6 [facility] Comment on above: Result Comment: ADA Guidelines Result HgbA1c Normal : less than 5.7 % Prediabetes : 5.7 % to 6.4 % Diabetes : > 6.4 % Use with caution in patients with abnormal hemoglobin variants as the half-life of red blood cells and in vivo glycation rates are affected. Performed By: #### H A1C ####[facility] ([facility])[address], [place] [address] VIR IRON AND TIBCon 11-30-2024 Iron [Mass/Vol] 32 ug/dL Low 50-170 [facility] Comment on above: Performed By: #### F EPR ####[facility] ([facility])[address], [place] [address] VIR IRON BINDING 287 ug/dL Normal 250-425 [facility] Comment on above: Performed By: #### F EPR ####[facility] ([facility])[address], [place] [address] VIR IRON SATURATION 11 % SATURATION Low 15-50 [facility] Comment on above: Performed By: #### F EPR ####[facility] ([facility])[address], [place] [address] VIR Transferrin [Mass/Vol] 205 mg/dL Normal 168-336 [facility] Comment on above: Performed By: #### F EPR ####[facility] ([facility])[address], [place] [address] VIR LACTATE W/ REFLEXon 12-01-19 25 LACTATE W/REFLEX 1.3 mmol/L Normal 0.4-2.0 [facility] Comment on above: Order Comment: Resul t did not trigger repeat Lactate,re-order if needed. Performed By: #### L ACTS ####[facility] ([address] [place] [address] VIR MAGNESIUMon 11-30-2024 Magnesium [Mass/Vol] 2.3 mg/dL Normal 1.8-2.6 [facility] Comment on above: Performed By: #### M G ####[facility] ([facility] [place] [address] VIR PHOSPHORUSon 11-30-2024 Phosphate [Mass/Vol] 3.8 mg/dL Normal 2.4-4.9 [facility] Comment on above: Performed By: #### P HOS ####[facility] ([facility])[address] [place], [place] [address] [place] [address] VIR POCT NURSING URINE MACROSCOP IC UAon 11-30-2024 BILIRUBIN EZEQUIEL Negative Normal Negative [facility] Comment on above: Performed By: #### N UM ####[facility] ([address] [place] [address] VIR BLOOD/HGB EZEQUIEL Large Abnormal Negative [facility] Comment on above: Performed By: #### N UM ####[facility] ([address] [place] [address] VIR GLUCOSE EZEQUIEL Negative Normal Negative [facility] Comment on above: Performed By: #### N UM ####[address] [place] [address] VIR KETONES EZEQUIEL Negative Normal Negative [facility] Comment on above: Performed By: #### N UM ####[address] [place] [address] VIR LEUKOCYTE ESTERASE EZEQUIEL Small Abnormal Negative [facility] Comment on above: Performed By: #### N UM ####[address] [place] [address] VIR NITRITE EZEQUIEL Negative Normal Negative [facility] Comment on above: Performed By: #### N UM ####[address] [place] [address] VIR PH EZEQUIEL 5.5 Normal 5.0, 6.0, 6.5, 7.0, 7.5, 8.0, 8.5, 5.5 [facility] Comment on above: Performed By: #### N UM ####[address] [place] [address] VIR PROTEIN EZEQUIEL 100 mg/dL Abnormal Negative [facility] Comment on above: Performed By: #### N UM ####[address] [place] [address] VIR SPECIFIC GRAVITY EZEQUIEL 1.015 Normal 1.010, 1.015, 1.020, 1.025 [facility] Comment on above: Performed By: #### N UM ####[facility] ([address] [place] [address] VIR UROBILINOGEN EZEQUIEL 0.2 E.U./dL Normal [facility] Comment on above: Performed By: #### N UM ####[facility] ([address] [address] VIR PROTIME AND INRon 11-30-2024 INR 1.1 Normal 0.9-1.2 [facility] Comment on above: Performed By: #### P INR ####[facility] ([address] [address] VIR PT Coag (PPP) [Time] 12.5 s Normal 9.8-13.2 [facility] Comment on above: Performed By: #### P INR ####[facility] ([address] [place] [address] VIR THYROID PROFILE INCLUDES TSH FT4on 11-30-2024 Free T4 [Mass/Vol] 1.33 ng/dL Normal 0.61-1.[address] [facility] Comment on above: Performed By: #### T HYR ####[facility] ([address] [place] [address] VIR TSH 3.09 uIU/mL Normal 0.49-4.67 [facility] Comment on above: Performed By: #### T HYR ####[facility] ([address] [place] [address] VIR TROP I, HIGH SENSITIVITY 1 H OURon 11-30-2024 TROPONIN I, HIGH SENSITIVITY 15 ng/L Normal <16 [facility] Comment on above: Performed By: #### T NIHS1 ####[facility] ([address] [place] [address] VIR TROPONIN I, HIGH SENSITIVITY 0 HOURon 11-30-2024 TROPONIN I, HIGH SENSITIVITY 15 ng/L Normal <16 [facility] Comment on above: Performed By: #### T NIHS0 ####[facility] ([facility])[address] [place] [address] VIR XR CHEST 1 VWon 11-30-2024 XR CHEST 1 VW Normal [facility] Debridementon 11-18-2024 JAM Meehan 11/18/2024 2:15 PM Debridement Performed by: JAM Meehan Authorized by: JAM Meehan Associated wounds: Wound 11/18/24 1 Diabetic Ulcer Calf Right;Medial Consent: Consent obtained: Verbal and written Consent given by: Patient Risks discussed: Yes Debridement Details: Performed by: DIRECTOR OF CODING Type: Sharp Level: Subcutaneous Tissue, Devitalized tissue and other material debrided: Subcutaneous tissue and fibrin Anesthesia administration: topical Anesthesia: EMLA Total Surface Area Debrided cm^2: 28.08 Specimen Taken: None Instrument: Curette Amount of bleeding: Small Bleeding Control: Pressure Response to treatment: Procedure was tolerated well Tissue Applied?: No MANUALLY TRANSCRIBED RESULTS [facility] Proxly th System CBC WITH AUTO DIFFERENTIALon 11-14-2024 BASOPHILS ABSOLUTE COUNT (10*3/UL) BY AUTOMATED COUNT 0.1 10*3/uL Normal 0.0-0.2 [facility] Comment on above: Performed By: #### C BCA ####[facility] ([address] [place] [address] VIR BASOPHILS RELATIVE PERCENT BY AUTOMATED COUNT 0.5 % Normal [facility] Comment on above: Performed By: #### C BCA ####[facility] ([address] [address] VIR CELLAVISION DIFFERENTIAL TYPE AUTOMATED DIFFERENTIAL Normal [facility] Comment on above: Performed By: #### C BCA ####[facility] ([address] [place] [address] VIR Eosinophils (Bld) [#/Vol] 0.2 10*3/uL Normal 0.0-0.4 [facility] Comment on above: Performed By: #### C BCA ####[facility] ([address] [place] [address] VIR EOSINOPHILS RELATIVE PERCENT BY AUTOMATED COUNT 2.3 % Normal [facility] Comment on above: Performed By: #### C BCA ####[facility] [facility] ([address] [place] [address] VIR Erythrocyte distribution width (RBC) [Ratio] 13.1 % Normal 11.5-15 [facility] Comment on above: Performed By: #### C BCA ####[facility] ([address] [address] VIR Hematocrit (Bld) [Volume fraction] 26.8 % Low 35-47 [facility] Comment on above: Performed By: #### C BCA ####[facility] ([address] [place] [address] VIR Hemoglobin (Bld) [Mass/Vol] 9.3 g/dL Low 11.7-15.5 [facility] Comment on above: Performed By: #### C BCA ####[facility] ([address] [place] [address] VIR LYMPHOCYTES ABSOLUTE COUNT (10*3/UL) BY AUTOMATED COUNT 2.4 10*3/uL Normal 1.0-3.5 [facility] Comment on above: Performed By: #### C BCA ####[facility] ([address] [address] VIR LYMPHOCYTES RELATIVE PERCENT BY AUTOMATED COUNT 22.1 % Normal [facility] Comment on above: Performed By: #### C BCA ####[facility] ([address] [address] VIR MCH (RBC) [Entitic mass] 30.9 pg Normal 27-34 [facility] Comment on above: Performed By: #### C BCA ####[facility] ([address] [place] [address] VIR MCHC (RBC) [Mass/Vol] 34.6 g/dL Normal 32-36 [facility] Comment on above: Performed By: #### C BCA ####[facility] ([address] [place] [address] VIR MCV (RBC) [Entitic vol] 89 fL Normal 80-100 [facility] Comment on above: Performed By: #### C BCA ####[facility] ([address] [place] [address] VIR MONOCYTES ABSOLUTE COUNT (10*3/UL) BY AUTOMATED COUNT 1.2 10*3/uL High 0.0-0.9 [facility] Comment on above: Performed By: #### C BCA ####[facility] ([address] [place] [address] VIR MONOCYTES RELATIVE PERCENT BY AUTOMATED COUNT 11.1 % Normal [facility] Comment on above: Performed By: #### C BCA ####[facility] ([address] [place] [address] VIR NEUTROPHILS ABSOLUTE COUNT BY AUTOMATED COUNT 6.8 10*3/uL High 1.5-6.6 [facility] Comment on above: Performed By: #### C BCA ####[facility] ([address] [address] VIR NEUTROPHILS RELATIVE PERCENT BY AUTOMATED COUNT 64.0 % Normal [facility] Comment on above: Performed By: #### C BCA ####[facility] ([address] [place] [address] VIR Platelet mean volume (Bld) [Entitic vol] 8.1 fL Normal 7-12 [facility] Comment on above: Performed By: #### C BCA ####[facility] ([address] [address] VIR Platelets (Bld) [#/Vol] 119 10*3/uL Low 150-450 [facility] Comment on above: Performed By: #### C BCA ####[facility] ([address] [address] VIR RBC COUNT 3.00 X10E12/L Low 3.8-5.2 [facility] Comment on above: Performed By: #### C BCA ####[facility] ([address] [address] VIR WBC (Bld) [#/Vol] 10.6 10*3/uL Normal 4-11 [facility] Comment on above: Performed By: #### C BCA ####[facility] ([address] [address] VIR CBC auto differentialon 10-17 Basophils (Bld) [#/Vol] 0.1 10*3/uL 0.0 - 0.2 10*3/uL [facility] Basophils/100 WBC (Bld) 0.5 % [facility] Differential cell count method Nom (Bld) AUTOMATED DIFFERENTIAL [facility] Eosinophils (Bld) [#/Vol] 0.2 10*3/uL 0.0 - 0.4 10*3/uL [facility] Eosinophils/100 WBC (Bld) 2.3 % [facility] Erythrocyte distribution width (RBC) [Ratio] 13.1 % 11.5 - 15 % [facility] Hematocrit (Bld) [Volume fraction] 26.8 % Low 35 - 47 % [facility] Hemoglobin (Bld) [Mass/Vol] 9.3 g/dL Low 11.7 - 15.5 g/dL [facility] Interpretation and review of laboratory results Abnormal [facility] Lymphocytes (Bld) [#/Vol] 2.4 10*3/uL 1.0 - 3.5 10*3/uL [facility] Lymphocytes/100 WBC (Bld) 22.1 % [facility] MCH (RBC) [Entitic mass] 30.9 pg 27 - 34 pg [facility] MCHC (RBC) [Mass/Vol] 34.6 g/dL 32 - 3 6 g/dL [facility] MCV (RBC) [Entitic vol] 89 fL 80 - 100 fL [facility] Monocytes (Bld) [#/Vol] 1.2 10*3/uL High 0.0 - 0.9 10*3/uL [facility] Monocytes/100 WBC (Bld) 11.1 % [facility] Neutrophils (Bld) [#/Vol] 6.8 10*3/uL High 1.5 - 6.6 10*3/uL [facility] Neutrophils/100 WBC (Bld) 64 % [facility] Platelet mean volume (Bld) [Entitic vol] 8.1 fL 7 - 12 fL [facility] Platelets (Bld) [#/Vol] 119 10*3/uL Low [facility] RBC (Bld) [#/Vol] 3 10*6/uL Low [facility] WBC LM Ql (Sput) 10.6 [facility] COMPREHENSIVE METABOLIC PANE José Luis 11-14-2024 Albumin [Mass/Vol] 2.7 g/dL Low 3.2-5.[address] [facility] Comment on above: Performed By: #### C MP ####[facility] ([facility])[address] [place] [address] VIR ALP [Catalytic activity/Vol] 65 U/L Normal 39-130 [facility] Comment on above: Performed By: #### C MP ####[facility] ([facility])[address] [place] [address] VIR ALT [Catalytic activity/Vol] 12 U/L Normal <=31 [facility] Comment on above: Performed By: #### C MP ####[facility] ([place] [address] [place] [address] VIR Anion gap [Moles/Vol] 8 mmol/L Normal 5-15 [facility] Comment on above: Performed By: #### C MP ####[facility] ([place] [address] [place] [address] VIR AST [Catalytic activity/Vol] 12 U/L Normal <=41 [facility] Comment on above: Performed By: #### C MP ####[facility] ([place] [address] [place] [address] VIR Bilirubin [Mass/Vol] 0.6 mg/dL Normal 0.3-1.2 [facility] Comment on above: Performed By: #### C MP ####[facility] ([address] [place] [address] VIR Calcium [Mass/Vol] 8.2 mg/dL Low 8.5-10.[address] [facility] Comment on above: Performed By: #### C MP ####[facility] ([address] [place] [address] VIR Chloride [Moles/Vol] 100 mmol/L Normal 98-109 [facility] Comment on above: Performed By: #### C MP ####[facility] ([place] [address] [place] [address] VIR CO2 [Moles/Vol] 28 mmol/L Normal 22-32 [facility] Comment on above: Performed By: #### C MP ####[facility] ([place] [address] [place] [address] VIR Creatinine [Mass/Vol] 1.37 mg/dL High 0.40-1.00 [facility] Comment on above: Result Comment: METH OD TRACEABLE TO IDMS STANDARD Performed By: #### C MP ####[facility] ([place])[address] [place] [address] VIR GFR/1.73 sq M.predicted among non-blacks MDRD (S/P/Bld) [Vol rate/Area] 38 mL/min/{1.73_m2} Low >=60 [facility] Comment on above: Result Comment: eGFR not reported due to non-numeric value for Creatinine.Reported eGFR is based on theCKD-EPI 2020 equation that doesnot use a race coefficient. Performed By: #### C MP ####[facility] ([facility])[address] [place] [address] VIR Glucose [Mass/Vol] 125 mg/dL High 65-[address] [facility] Comment on above: Performed By: #### C MP ####[facility] ([address] [place] [address] VIR Potassium [Moles/Vol] 3.6 mmol/L Normal 3.5-5.0 [facility] Comment on above: Performed By: #### C MP ####[facility] ([address] [place] [address] VIR Protein [Mass/Vol] 6.7 g/dL Normal 6.0-8.[address] [facility] Comment on above: Performed By: #### C MP ####[facility] ([address] [place] [address] VIR Sodium [Moles/Vol] 136 mmol/L Normal 134-[address] [facility] Comment on above: Performed By: #### C MP ####[facility] ([place] [address] [place] [address] VIR Urea nitrogen [Mass/Vol] 31 mg/dL High 5-27 [facility] Comment on above: Performed By: #### C MP ####[facility] ([place] [address] [place] [address] VIR Comprehensive metabolic pane josé luis 11-14-2024 Albumin [Mass/Vol] 2.7 g/dL Low 3.2 - 5.3 g/dL [facility] ALP [Catalytic activity/Vol] 65 U/L 39 - 130 U/L [facility] ALT No additional P-5'-P [Catalytic activity/Vol] 12 U/L NINF - 31 U/L [facility] Anion gap [Moles/Vol] 8 mmol/L 5 - 15 mmol/L [facility] AST [Catalytic activity/Vol] 12 U/L NINF - 41 U/L [facility] Bilirubin [Mass/Vol] 0.6 mg/dL 0.3 - 1 .2 mg/dL [facility] Calcium [Mass/Vol] 8.2 mg/dL Low 8.5 - 10. 5 mg/dL [facility] Chloride [Moles/Vol] 100 mmol/L 98 - 10 9 mmol/L [facility] CO2 [Moles/Vol] 28 mmol/L 22 - 32 mmol/L [facility] Creatinine [Mass/Vol] 1.37 mg/dL High 0.40 - 1.00 mg/dL [facility] EGFR Non-Race Dependent 38 Low - PINF [facility] Glucose [Mass/Vol] 125 mg/dL High 65 - 99 mg/dL [facility] Interpretation and review of laboratory results Abnormal [facility] Potassium [Moles/Vol] 3.6 mmol/L 3.5 - 5.0 mmol/L [facility] Protein [Mass/Vol] 6.7 g/dL 6.0 - 8.0 g/dL [facility] Sodium [Moles/Vol] 136 mmol/L 134 - 146 mmol/L [facility] Urea nitrogen [Mass/Vol] 31 mg/dL High 5 - 27 mg/dL [facility] Light Blue Topon 11-14-2024 Extra Tube Auto [facility]ed [facility] MAGNESIUMon 11-14-2024 Magnesium [Mass/Vol] 1.8 mg/dL Normal 1.8-2.6 [facility] Comment on above: Performed By: #### M G ####[facility] ([address] [address] VIR Magnesiumon 11-14-2024 Interpretation and review of laboratory results Normal [facility] Magnesium [Mass/Vol] 1.8 mg/dL 1.8 - 2 .6 mg/dL [facility] No Panel Informationon 11-14 [facility] PHOSPHORUSon 11-14-2024 Phosphate [Mass/Vol] 2.3 mg/dL Low 2.4-4.9 [facility] Comment on above: Performed By: #### P HOS ####[facility] ([facility])[address] [place] [address] [place] [address] VIR Phosphoruson 11-14-2024 Interpretation and review of laboratory results Abnormal [facility] Phosphate [Mass/Vol] 2.3 mg/dL Low 2.4 - 4 .9 mg/dL [facility] BEDSIDE GLUCOSEon 11-13-2024 Glucose [Mass/Vol] 243 mg/dL High 65-[address] [facility] Comment on above: Performed By: #### B EDG ####[facility] ([address] [place] [address] VIR Glucose [Mass/Vol] 197 mg/dL High 65-[address] [facility] Comment on above: Performed By: #### B EDG ####[facility] ([address] [place] [address] VIR Glucose [Mass/Vol] 158 mg/dL High 65-[address] [facility] Comment on above: Performed By: #### B EDG ####[facility] ([address] [place] [address] VIR Bacteria identified Aer cx N om (Bld)on 11-13-2024 Bacteria identified Aer cx Nom (Unsp spec) NO GROWTH 5 DAYS [facility] Bedside Glucose *Place/Obtai n serum glucose if >500 per glucometer.on 11-13-2024 Glucose [Mass/Vol] 243 mg/dL High 65 - 99 mg/dL [facility] Interpretation and review of laboratory results Abnormal [facility] Glucose [Mass/Vol] 197 mg/dL High 65 - 99 mg/dL [facility] Interpretation and review of laboratory results Abnormal [facility] Glucose [Mass/Vol] 158 mg/dL High 65 - 99 mg/dL [facility] Interpretation and review of laboratory results Abnormal [facility] CBC WITH AUTO DIFFERENTIALon 11-13-2024 BASOPHILS ABSOLUTE COUNT (10*3/UL) BY AUTOMATED COUNT 0.1 10*3/uL Normal 0.0-0.2 [facility] Comment on above: Performed By: #### C BCA ####[facility] ([address] [address] VIR BASOPHILS RELATIVE PERCENT BY AUTOMATED COUNT 1.4 % Normal [facility] Comment on above: Performed By: #### C BCA ####[facility] ([address] [address] VIR CELLAVISION DIFFERENTIAL TYPE AUTOMATED DIFFERENTIAL Normal [facility] Comment on above: Performed By: #### C BCA ####[facility] ([address] [address] VIR Eosinophils (Bld) [#/Vol] 0.3 10*3/uL Normal 0.0-0.4 [facility] Comment on above: Performed By: #### C BCA ####[facility] ([address] [address] VIR EOSINOPHILS RELATIVE PERCENT BY AUTOMATED COUNT 2.9 % Normal [facility] Comment on above: Performed By: #### C BCA ####[address] [address] VIR Erythrocyte distribution width (RBC) [Ratio] 13.4 % Normal 11.5-15 [facility] Comment on above: Performed By: #### C BCA ####[facility] [address] VIR Hematocrit (Bld) [Volume fraction] 26.5 % Low 35-47 [facility] Comment on above: Performed By: #### C BCA ####[facility] ([address] [address] VIR Hemoglobin (Bld) [Mass/Vol] 9.0 g/dL Low 11.7-15.5 [facility] Comment on above: Performed By: #### C BCA ####[facility] ([address] [address] VIR LYMPHOCYTES ABSOLUTE COUNT (10*3/UL) BY AUTOMATED COUNT 2.4 10*3/uL Normal 1.0-3.5 [facility] Comment on above: Performed By: #### C BCA ####[facility] ([address] [address] VIR LYMPHOCYTES RELATIVE PERCENT BY AUTOMATED COUNT 22.6 % Normal [facility] Comment on above: Performed By: #### C BCA ####[facility] ([address] [address] VIR MCH (RBC) [Entitic mass] 30.4 pg Normal 27-34 [facility] Comment on above: Performed By: #### C BCA ####[facility] ([address] [address] VIR MCHC (RBC) [Mass/Vol] 33.8 g/dL Normal 32-36 [facility] Comment on above: Performed By: #### C BCA ####[facility] ([address] [address] VIR MCV (RBC) [Entitic vol] 90 fL Normal 80-100 [facility] Comment on above: Performed By: #### C BCA ####[facility] ([address] [place] [address] VIR MONOCYTES ABSOLUTE COUNT (10*3/UL) BY AUTOMATED COUNT 1.3 10*3/uL High 0.0-0.9 [facility] Comment on above: Performed By: #### C BCA ####[facility] ([address] [place] [address] VIR MONOCYTES RELATIVE PERCENT BY AUTOMATED COUNT 12.1 % Normal [facility] Comment on above: Performed By: #### C BCA ####[facility] ([address] [place] [address] VIR NEUTROPHILS ABSOLUTE COUNT BY AUTOMATED COUNT 6.6 10*3/uL Normal 1.5-6.6 [facility] Comment on above: Performed By: #### C BCA ####[facility] ([address] [place] [address] VIR NEUTROPHILS RELATIVE PERCENT BY AUTOMATED COUNT 61.0 % Normal [facility] Comment on above: Performed By: #### C BCA ####[facility] ([address] [place] [address] VIR Platelet mean volume (Bld) [Entitic vol] 8.7 fL Normal 7-12 [facility] Comment on above: Performed By: #### C BCA ####[facility] ([address] [place] [address] VIR Platelets (Bld) [#/Vol] 64 10*3/uL Low 150-450 [facility] Comment on above: Performed By: #### C BCA ####[facility] ([address] [place] [address] VIR RBC COUNT 2.95 X10E12/L Low 3.8-5.2 [facility] Comment on above: Performed By: #### C BCA ####[facility] ([address] [place] [address] VIR WBC (Bld) [#/Vol] 10.8 10*3/uL Normal 4-11 [facility] Comment on above: Performed By: #### C JOSSIE ####[facility] ([facility])[address] [place] [address] VIR CBC auto differentialon 05-3 0-2024 Basophils (Bld) [#/Vol] 0.1 10*3/uL 0.0 - 0.2 10*3/uL [facility] Basophils/100 WBC (Bld) 1.4 % [facility] Differential cell count method Nom (Bld) AUTOMATED DIFFERENTIAL [facility] Eosinophils (Bld) [#/Vol] 0.3 10*3/uL 0.0 - 0.4 10*3/uL [facility] Eosinophils/100 WBC (Bld) 2.9 % [facility] Erythrocyte distribution width (RBC) [Ratio] 13.4 % 11.5 - 15 % [facility] Hematocrit (Bld) [Volume fraction] 26.5 % Low 35 - 47 % [facility] Hemoglobin (Bld) [Mass/Vol] 9 g/dL Low 11.7 - 15.5 g/dL [facility] Interpretation and review of laboratory results Abnormal [facility] Lymphocytes (Bld) [#/Vol] 2.4 10*3/uL 1.0 - 3.5 10*3/uL [facility] Lymphocytes/100 WBC (Bld) 22.6 % [facility] MCH (RBC) [Entitic mass] 30.4 pg 27 - 34 pg [facility] MCHC (RBC) [Mass/Vol] 33.8 g/dL 32 - 3 6 g/dL [facility] MCV (RBC) [Entitic vol] 90 fL 80 - 100 fL [facility] Monocytes (Bld) [#/Vol] 1.3 10*3/uL High 0.0 - 0.9 10*3/uL [facility] Monocytes/100 WBC (Bld) 12.1 % [facility] Neutrophils (Bld) [#/Vol] 6.6 10*3/uL 1.5 - 6.6 10*3/uL [facility] Neutrophils/100 WBC (Bld) 61 % [facility] Platelet mean volume (Bld) [Entitic vol] 8.7 fL 7 - [address] Platelets (Bld) [#/Vol] 64 10*3/uL Low [facility] RBC (Bld) [#/Vol] 2.95 10*6/uL Low [facility] WBC LM Ql (Sput) 10.8 [facility] COMPREHENSIVE METABOLIC PANE José Luis 11-13-2024 Albumin [Mass/Vol] 2.6 g/dL Low 3.2-5.[address] [facility] Comment on above: Performed By: #### C MP ####[facility] ([address] [address] VIR ALP [Catalytic activity/Vol] 63 U/L Normal 39-130 [facility] Comment on above: Performed By: #### C MP ####[facility] ([address] [address] VIR ALT [Catalytic activity/Vol] 11 U/L Normal <=31 [facility] Comment on above: Performed By: #### C MP ####[facility] ([address] [address] VIR Anion gap [Moles/Vol] 7 mmol/L Normal 5-15 [facility] Comment on above: Performed By: #### C MP ####[facility] ([address] [address] VIR AST [Catalytic activity/Vol] 13 U/L Normal <=41 [facility] Comment on above: Performed By: #### C MP ####[facility] ([address] [address] VIR Bilirubin [Mass/Vol] 0.5 mg/dL Normal 0.3-1.2 [facility] Comment on above: Performed By: #### C MP ####[facility] ([address] [place] [address] VIR Calcium [Mass/Vol] 8.4 mg/dL Low 8.5-10.[address] [facility] Comment on above: Performed By: #### C MP ####[facility] ([address] [place] [address] VIR Chloride [Moles/Vol] 103 mmol/L Normal 98-109 [facility] Comment on above: Performed By: #### C MP ####[facility] ([address] [place] [address] VIR CO2 [Moles/Vol] 27 mmol/L Normal 22-32 [facility] Comment on above: Performed By: #### C MP ####[facility] ([address] [place] [address] VIR Creatinine [Mass/Vol] 1.34 mg/dL High 0.40-1.00 [facility] Comment on above: Result Comment: METH OD TRACEABLE TO IDMS STANDARD Performed By: #### C MP ####[facility] ([address] [place] [address] VIR GFR/1.73 sq M.predicted among non-blacks MDRD (S/P/Bld) [Vol rate/Area] 39 mL/min/{1.73_m2} Low >=60 [facility] Comment on above: Result Comment: eGFR not reported due to non-numeric value for Creatinine.Reported eGFR is based on theCKD-EPI 2020 equation that doesnot use a race coefficient. Performed By: #### C MP ####[facility] ([address] [place] [address] VIR Glucose [Mass/Vol] 93 mg/dL Normal 65-[address] [facility] Comment on above: Performed By: #### C MP ####[facility] ([address] [place] [address] VIR Potassium [Moles/Vol] 3.4 mmol/L Low 3.5-5.0 [facility] Comment on above: Performed By: #### C MP ####[facility] ([address] [place] [address] VIR Protein [Mass/Vol] 6.4 g/dL Normal 6.0-8.[address] [facility] Comment on above: Performed By: #### C MP ####[facility] ([address] [place] [address] VIR Sodium [Moles/Vol] 137 mmol/L Normal 134-[address] [facility] Comment on above: Performed By: #### C MP ####[facility] ([address] [place] [address] VIR Urea nitrogen [Mass/Vol] 31 mg/dL High 5-27 [facility] Comment on above: Performed By: #### C MP ####[facility] ([address] [place] [address] VIR Comprehensive metabolic pane josé luis 11-13-2024 Albumin [Mass/Vol] 2.6 g/dL Low 3.2 - 5.3 g/dL [facility] ALP [Catalytic activity/Vol] 63 U/L 39 - 130 U/L [facility] ALT No additional P-5'-P [Catalytic activity/Vol] 11 U/L NINF - 31 U/L [facility] Anion gap [Moles/Vol] 7 mmol/L 5 - 15 mmol/L [facility] AST [Catalytic activity/Vol] 13 U/L NINF - 41 U/L [facility] Bilirubin [Mass/Vol] 0.5 mg/dL 0.3 - 1 .2 mg/dL [facility] Calcium [Mass/Vol] 8.4 mg/dL Low 8.5 - 10. 5 mg/dL [facility] Chloride [Moles/Vol] 103 mmol/L 98 - 10 9 mmol/L [facility] CO2 [Moles/Vol] 27 mmol/L 22 - 32 mmol/L [facility] Creatinine [Mass/Vol] 1.34 mg/dL High 0.40 - 1.00 mg/dL [facility] EGFR Non-Race Dependent 39 Low - PINF [facility] Glucose [Mass/Vol] 93 mg/dL 65 - 99 mg/dL [facility] Interpretation and review of laboratory results Abnormal [facility] Potassium [Moles/Vol] 3.4 mmol/L Low 3.5 - 5.0 mmol/L [facility] Protein [Mass/Vol] 6.4 g/dL 6.0 - 8.0 g/dL [facility] Sodium [Moles/Vol] 137 mmol/L 134 - 146 mmol/L [facility] Urea nitrogen [Mass/Vol] 31 mg/dL High 5 - 27 mg/dL [facility] ECG 12 leadon 11-13-2024 TRACEMASTERVUE [facility] Light Blue Topon 11-13-2024 Extra Tube Auto Resulted [facility] MAGNESIUMon 11-13-2024 Magnesium [Mass/Vol] 1.9 mg/dL Normal 1.8-2.6 [facility] Comment on above: Performed By: #### M G ####[facility] ([address] [address] VIR Magnesiumon 11-13-2024 Interpretation and review of laboratory results Normal [facility] Magnesium [Mass/Vol] 1.9 mg/dL 1.8 - 2 .6 mg/dL [facility] No Panel Informationon 11-13 [facility] PHOSPHORUSon 11-13-2024 Phosphate [Mass/Vol] 2.7 mg/dL Normal 2.4-4.9 [facility] Comment on above: Performed By: #### P HOS ####[address] [address] VIR POTASSIUMon 11-13-2024 Potassium [Moles/Vol] 3.6 mmol/L Normal 3.5-5.0 [facility] Comment on above: Performed By: #### K ####[facility] ([address] [address] VIR Phosphoruson 11-13-2024 Interpretation and review of laboratory results Normal [facility] Phosphate [Mass/Vol] 2.7 mg/dL 2.4 - 4 .9 mg/dL [facility] Potassiumon 11-13-2024 Interpretation and review of laboratory results Normal [facility] Potassium [Moles/Vol] 3.6 mmol/L 3.5 - 5.0 mmol/L [facility] BEDSIDE GLUCOSEon 11-12-2024 Glucose [Mass/Vol] 201 mg/dL High [address] [place] [address] Comment on above: Performed By: #### B EDG ####[facility] ([address] [address] VIR Glucose [Mass/Vol] 278 mg/dL High [address] [place] [address] Comment on above: Performed By: #### B EDG ####[facility] ([address] [address] VIR Glucose [Mass/Vol] 147 mg/dL High [address] [place] [address] Comment on above: Performed By: #### B EDG ####[facility] ([address] [address] VIR Bacteria identified Aer cx N om (Wound)Ordered By: Yony Lopez on 11-12-2024 Bacteria identified Aer cx Nom (Unsp spec) Many Pseudomonas aeruginosa Abnormal [facility] Interpretation and review of laboratory results Abnormal [facility] Microscopic observation Gram stain Nom (Unsp spec) 10 to 24 White Blood Cells/LPF Abnormal [facility] Microscopic observation Gram stain Nom (Unsp spec) 0 to 1 Squamous Epithelial Cells/LPF Abnormal [facility] Microscopic observation Gram stain Nom (Unsp spec) Negative Abnormal [facility] Bedside Glucose *Place/Obtai n serum glucose if >500 per glucometer.on 11-12-2024 Glucose [Mass/Vol] 201 mg/dL High 65 - 99 mg/dL [facility] Interpretation and review of laboratory results Abnormal [facility] Glucose [Mass/Vol] 147 mg/dL High 65 - 99 mg/dL [facility] Interpretation and review of laboratory results Abnormal [facility] Glucose [Mass/Vol] 278 mg/dL High 65 - 99 mg/dL [facility] Interpretation and review of laboratory results Abnormal [facility] CBC WITH AUTO DIFFERENTIALon 11-12-2024 BASOPHILS ABSOLUTE COUNT (10*3/UL) BY AUTOMATED COUNT 0.1 10*3/uL Normal 0.0-0.2 [facility] Comment on above: Performed By: #### C BCA ####[facility] ([address] [address] VIR BASOPHILS RELATIVE PERCENT BY AUTOMATED COUNT 0.8 % Normal [facility] Comment on above: Performed By: #### C BCA ####[facility] ([address] [address] VIR CELLAVISION DIFFERENTIAL TYPE AUTOMATED DIFFERENTIAL Normal [facility] Comment on above: Performed By: #### C BCA ####[facility] ([address] [address] VIR Eosinophils (Bld) [#/Vol] 0.3 10*3/uL Normal 0.0-0.4 [facility] Comment on above: Performed By: #### C BCA ####[facility] ([address] [address] VIR EOSINOPHILS RELATIVE PERCENT BY AUTOMATED COUNT 2.6 % Normal [facility] Comment on above: Performed By: #### C BCA ####[facility] ([address] [address] VIR Erythrocyte distribution width (RBC) [Ratio] 13.4 % Normal 11.5-15 [facility] Comment on above: Performed By: #### C BCA ####[facility] ([address] [address] VIR Hematocrit (Bld) [Volume fraction] 25.1 % Low 35-47 [facility] Comment on above: Performed By: #### C BCA ####[facility] ([address] [address] VIR Hemoglobin (Bld) [Mass/Vol] 8.6 g/dL Low 11.7-15.5 [facility] Comment on above: Performed By: #### C BCA ####[facility] ([address] [address] VIR LYMPHOCYTES ABSOLUTE COUNT (10*3/UL) BY AUTOMATED COUNT 2.4 10*3/uL Normal 1.0-3.5 [facility] Comment on above: Performed By: #### C BCA ####[facility] ([address] [address] VIR LYMPHOCYTES RELATIVE PERCENT BY AUTOMATED COUNT 21.9 % Normal [facility] Comment on above: Performed By: #### C BCA ####[facility] ([address] [address] VIR MCH (RBC) [Entitic mass] 30.7 pg Normal 27-34 [facility] Comment on above: Performed By: #### C BCA ####[facility] ([address] [address] VIR MCHC (RBC) [Mass/Vol] 34.1 g/dL Normal 32-36 [facility] Comment on above: Performed By: #### C BCA ####[facility] ([address] [address] VIR MCV (RBC) [Entitic vol] 90 fL Normal 80-100 [facility] Comment on above: Performed By: #### C BCA ####[facility] ([address] [address] VIR MONOCYTES ABSOLUTE COUNT (10*3/UL) BY AUTOMATED COUNT 1.5 10*3/uL High 0.0-0.9 [facility] Comment on above: Performed By: #### C BCA ####[facility] ([address] [address] VIR MONOCYTES RELATIVE PERCENT BY AUTOMATED COUNT 13.9 % Normal [facility] Comment on above: Performed By: #### C BCA ####[facility] ([address] [address] VIR NEUTROPHILS ABSOLUTE COUNT BY AUTOMATED COUNT 6.7 10*3/uL High 1.5-6.6 [facility] Comment on above: Performed By: #### C BCA ####[facility] ([address] [address] VIR NEUTROPHILS RELATIVE PERCENT BY AUTOMATED COUNT 60.8 % Normal [facility] Comment on above: Performed By: #### C BCA ####[facility] ([address] [address] VIR Platelet mean volume (Bld) [Entitic vol] 9.4 fL Normal 7-12 [facility] Comment on above: Performed By: #### C BCA ####[facility] ([address] [address] VIR Platelets (Bld) [#/Vol] 37 10*3/uL Low 150-450 [facility] Comment on above: Performed By: #### C BCA ####[facility] ([address] [address] VIR RBC COUNT 2.79 X10E12/L Low 3.8-5.2 [facility] Comment on above: Performed By: #### C BCA ####[facility] ([facility])[address] [place] [address] VIR WBC (Bld) [#/Vol] 11.1 10*3/uL High 4-11 [facility] Comment on above: Performed By: #### C BCA ####[facility] ([facility])[address] [place] [address] VIR CBC auto differentialon 10-16 Basophils (Bld) [#/Vol] 0.1 10*3/uL 0.0 - 0.2 10*3/uL [facility] Basophils/100 WBC (Bld) 0.8 % [facility] Differential cell count method Nom (Bld) AUTOMATED DIFFERENTIAL [facility] Eosinophils (Bld) [#/Vol] 0.3 10*3/uL 0.0 - 0.4 10*3/uL [facility] Eosinophils/100 WBC (Bld) 2.6 % [facility] Erythrocyte distribution width (RBC) [Ratio] 13.4 % 11.5 - 15 % [facility] Hematocrit (Bld) [Volume fraction] 25.1 % Low 35 - 47 % [facility] Hemoglobin (Bld) [Mass/Vol] 8.6 g/dL Low 11.7 - 15.5 g/dL [facility] Interpretation and review of laboratory results Abnormal [facility] Lymphocytes (Bld) [#/Vol] 2.4 10*3/uL 1.0 - 3.5 10*3/uL [facility] Lymphocytes/100 WBC (Bld) 21.9 % [facility] MCH (RBC) [Entitic mass] 30.7 pg 27 - 34 pg [facility] MCHC (RBC) [Mass/Vol] 34.1 g/dL 32 - 3 6 g/dL [facility] MCV (RBC) [Entitic vol] 90 fL 80 - 100 fL [facility] Monocytes (Bld) [#/Vol] 1.5 10*3/uL High 0.0 - 0.9 10*3/uL [facility] Monocytes/100 WBC (Bld) 13.9 % [facility] Neutrophils (Bld) [#/Vol] 6.7 10*3/uL High 1.5 - 6.6 10*3/uL [facility] Neutrophils/100 WBC (Bld) 60.8 % [facility] Platelet mean volume (Bld) [Entitic vol] 9.4 fL 7 - 12 fL [facility] Platelets (Bld) [#/Vol] 37 10*3/uL Low [facility] RBC (Bld) [#/Vol] 2.79 10*6/uL Low [facility] WBC LM Ql (Sput) 11.1 High [facility] COMPREHENSIVE METABOLIC PANE José Luis 11-12-2024 Albumin [Mass/Vol] 2.6 g/dL Low 3.2-5.3 [facility] Comment on above: Performed By: #### C MP ####[facility] ([address] [address] VIR ALP [Catalytic activity/Vol] 63 U/L Normal 39-130 [facility] Comment on above: Performed By: #### C MP ####[facility] ([address] [address] VIR ALT [Catalytic activity/Vol] 14 U/L Normal <=31 [facility] Comment on above: Performed By: #### C MP ####[facility] ([address] [address] VIR Anion gap [Moles/Vol] 0 mmol/L Low 5-15 [facility] Comment on above: Performed By: #### C MP ####[facility] ([address] [address] VIR AST [Catalytic activity/Vol] 12 U/L Normal <=41 [facility] Comment on above: Performed By: #### C MP ####[facility] ([address] [address] VIR Bilirubin [Mass/Vol] 0.6 mg/dL Normal 0.3-1.2 [facility] Comment on above: Performed By: #### C MP ####[facility] ([facility])[address] [place], [place] [address] [address] VIR Calcium [Mass/Vol] 7.9 mg/dL Low 8.5-10.[address] [facility] Comment on above: Performed By: #### C MP ####[facility] ([address] [place] [address] VIR Chloride [Moles/Vol] 109 mmol/L Normal 98-109 [facility] Comment on above: Performed By: #### C MP ####[facility] ([address] [place] [address] VIR CO2 [Moles/Vol] 25 mmol/L Normal 22-32 [facility] Comment on above: Performed By: #### C MP ####[facility] ([address] [place] [address] VIR Creatinine [Mass/Vol] 1.39 mg/dL High 0.40-1.00 [facility] Comment on above: Result Comment: METH OD TRACEABLE TO IDMS STANDARD Performed By: #### C MP ####[facility] ([address] [place] [address] VIR GFR/1.73 sq M.predicted among non-blacks MDRD (S/P/Bld) [Vol rate/Area] 38 mL/min/{1.73_m2} Low >=60 [facility] Comment on above: Result Comment: eGFR not reported due to non-numeric value for Creatinine. Performed By: #### C MP ####[facility] ([address] [place] [address] VIR Glucose [Mass/Vol] 73 mg/dL Normal 65-[address] [facility] Comment on above: Performed By: #### C MP ####[facility] ([address] [place] [address] VIR Potassium [Moles/Vol] 3.5 mmol/L Normal 3.5-5.0 [facility] Comment on above: Performed By: #### C MP ####[facility] ([address] [place] [address] VIR Protein [Mass/Vol] 6.3 g/dL Normal 6.0-8.0 [facility] Comment on above: Performed By: #### C MP ####[facility] ([address] [place] [address] VIR Sodium [Moles/Vol] 134 mmol/L Normal 134-[address] [facility] Comment on above: Performed By: #### C MP ####[facility] ([address] [place] [address] VIR Urea nitrogen [Mass/Vol] 37 mg/dL High 5-27 [facility] Comment on above: Performed By: #### C MP ####[facility] ([address] [place] [address] VIR Comprehensive metabolic pane josé luis 11-12-2024 Albumin [Mass/Vol] 2.6 g/dL Low 3.2 - 5.3 g/dL [facility] ALP [Catalytic activity/Vol] 63 U/L 39 - 130 U/L [facility] ALT No additional P-5'-P [Catalytic activity/Vol] 14 U/L NINF - 31 U/L [facility] Anion gap [Moles/Vol] 0 mmol/L Low 5 - 15 mmol/L [facility] AST [Catalytic activity/Vol] 12 U/L NINF - 41 U/L [facility] Bilirubin [Mass/Vol] 0.6 mg/dL 0.3 - 1 .2 mg/dL [facility] Calcium [Mass/Vol] 7.9 mg/dL Low 8.5 - 10. 5 mg/dL [facility] Chloride [Moles/Vol] 109 mmol/L 98 - 10 9 mmol/L [facility] CO2 [Moles/Vol] 25 mmol/L 22 - 32 mmol/L [facility] Creatinine [Mass/Vol] 1.39 mg/dL High 0.40 - 1.00 mg/dL [facility] EGFR Non-Race Dependent 38 Low - PINF [facility] Glucose [Mass/Vol] 73 mg/dL 65 - 99 mg/dL [facility] Interpretation and review of laboratory results Abnormal [facility] Potassium [Moles/Vol] 3.5 mmol/L 3.5 - 5.0 mmol/L [facility] Protein [Mass/Vol] 6.3 g/dL 6.0 - 8.0 g/dL [facility] Sodium [Moles/Vol] 134 mmol/L 134 - 146 mmol/L [facility] Urea nitrogen [Mass/Vol] 37 mg/dL High 5 - 27 mg/dL [facility] Light Blue Topon 11-12-2024 Extra Tube Auto Resulted [facility] MAGNESIUMon 11-12-2024 Magnesium [Mass/Vol] 2.2 mg/dL Normal 1.8-2.6 [facility] Comment on above: Performed By: #### M G ####[address] [address] VIR Magnesiumon 11-12-2024 Interpretation and review of laboratory results Normal [facility] Magnesium [Mass/Vol] 2.2 mg/dL 1.8 - 2 .6 mg/dL [facility] No Panel Informationon 11-12 [facility] PHOSPHORUSon 11-12-2024 Phosphate [Mass/Vol] 2.8 mg/dL Normal 2.4-4.9 [facility] Comment on above: Performed By: #### P HOS ####[address] [address] VIR Phosphoruson 11-12-2024 Interpretation and review of laboratory results Normal [facility] Phosphate [Mass/Vol] 2.8 mg/dL 2.4 - 4 .9 mg/dL [facility] BEDSIDE GLUCOSEon 11-11-2024 Glucose [Mass/Vol] 248 mg/dL High 65-[address] [facility] Comment on above: Performed By: #### B EDG ####[facility] ([address] [place] [address] VIR Glucose [Mass/Vol] 214 mg/dL High 65-[address] [facility] Comment on above: Performed By: #### B EDG ####[facility] ([address] [place] [address] VIR Glucose [Mass/Vol] 240 mg/dL High 65-[address] [facility] Comment on above: Performed By: #### B EDG ####[facility] ([address] [place] [address] VIR Bacteria identified Aer cx N om (Wound)on 11-11-2024 Bacteria identified Aer cx Nom (Unsp spec) Many Pseudomonas aeruginosa Abnormal [facility] Interpretation and review of laboratory results Abnormal [facility] Microscopic observation Gram stain Nom (Unsp spec) 10 to 24 White Blood Cells/LPF Abnormal [facility] Microscopic observation Gram stain Nom (Unsp spec) 0 to 1 Squamous Epithelial Cells/LPF Abnormal [facility] Microscopic observation Gram stain Nom (Unsp spec) Negative Abnormal [facility] Bedside Glucose *Place/Obtai n serum glucose if >500 per glucometer.on 11-11-2024 Glucose [Mass/Vol] 214 mg/dL High 65 - 99 mg/dL [facility] Glucose [Mass/Vol] 248 mg/dL High 65 - 99 mg/dL [facility] Glucose [Mass/Vol] 240 mg/dL High 65 - 99 mg/dL [facility] Interpretation and review of laboratory results Abnormal [facility] C-REACTIVE PROTEINon 025 C REACTIVE PROTEIN 10.9 mg/dL High <=0.[address] [facility] Comment on above: Performed By: #### C RP ####[facility] ([address] [address] VIR C-reactive proteinon 025 CRP [Mass/Vol] 10.9 mg/dL High NINF - 0.7 mg/dL [facility] Interpretation and review of laboratory results Abnormal [facility] CBC WITH AUTO DIFFERENTIALon 11-11-2024 BASOPHILS ABSOLUTE COUNT (10*3/UL) BY AUTOMATED COUNT 0.1 10*3/uL Normal 0.0-0.2 [facility] Comment on above: Performed By: #### C BCA ####[address] [address] VIR BASOPHILS RELATIVE PERCENT BY AUTOMATED COUNT 0.8 % Normal [facility] Comment on above: Performed By: #### C BCA ####[address] [address] VIR CELLAVISION DIFFERENTIAL TYPE AUTOMATED DIFFERENTIAL Normal [facility] Comment on above: Performed By: #### C BCA ####[address] [address] VIR Eosinophils (Bld) [#/Vol] 0.3 10*3/uL Normal 0.0-0.4 [facility] Comment on above: Performed By: #### C BCA ####[facility] ([address] [address] VIR EOSINOPHILS RELATIVE PERCENT BY AUTOMATED COUNT 3.4 % Normal [facility] Comment on above: Performed By: #### C BCA ####[address] [address] VIR Erythrocyte distribution width (RBC) [Ratio] 13.5 % Normal 11.5-15 [facility] Comment on above: Performed By: #### C BCA ####[facility] ([address] [address] VIR Hematocrit (Bld) [Volume fraction] 25.8 % Low 35-47 [facility] Comment on above: Performed By: #### C BCA ####[facility] ([address] [address] VIR Hemoglobin (Bld) [Mass/Vol] 8.7 g/dL Low 11.7-15.5 [facility] Comment on above: Performed By: #### C BCA ####[facility] ([address] [address] VIR LYMPHOCYTES ABSOLUTE COUNT (10*3/UL) BY AUTOMATED COUNT 2.0 10*3/uL Normal 1.0-3.5 [facility] Comment on above: Performed By: #### C BCA ####[facility] ([address] [address] VIR LYMPHOCYTES RELATIVE PERCENT BY AUTOMATED COUNT 21.4 % Normal [facility] Comment on above: Performed By: #### C BCA ####[facility] ([address] [address] VIR MCH (RBC) [Entitic mass] 30.6 pg Normal 27-34 [facility] Comment on above: Performed By: #### C BCA ####[facility] ([address] [address] VIR MCHC (RBC) [Mass/Vol] 34.0 g/dL Normal 32-36 [facility] Comment on above: Performed By: #### C BCA ####[facility] ([address] [address] VIR MCV (RBC) [Entitic vol] 90 fL Normal 80-100 [facility] Comment on above: Performed By: #### C BCA ####[facility] ([address] [place] [address] VIR MONOCYTES ABSOLUTE COUNT (10*3/UL) BY AUTOMATED COUNT 1.5 10*3/uL High 0.0-0.9 [facility] Comment on above: Performed By: #### C BCA ####[facility] ([facility])[address] [place], [place] [address]E.[place], [place] [address] VIR MONOCYTES RELATIVE PERCENT BY AUTOMATED COUNT 15.7 % Normal [facility] Comment on above: Performed By: #### C BCA ####[facility] ([address] [place] [address] VIR NEUTROPHILS ABSOLUTE COUNT BY AUTOMATED COUNT 5.5 10*3/uL Normal 1.5-6.6 [facility] Comment on above: Performed By: #### C BCA ####[facility] ([address] [place] [address] VIR NEUTROPHILS RELATIVE PERCENT BY AUTOMATED COUNT 58.7 % Normal [facility] Comment on above: Performed By: #### C BCA ####[facility] ([address] [place] [address] VIR Platelet mean volume (Bld) [Entitic vol] 9.0 fL Normal 7-12 [facility] Comment on above: Performed By: #### C BCA ####[facility] ([address] [place] [address] VIR Platelets (Bld) [#/Vol] 28 10*3/uL Critically low 150-450 [facility] Comment on above: Performed By: #### C BCA ####[facility] ([address] [place] [address] VIR RBC COUNT 2.86 X10E12/L Low 3.8-5.2 [facility] Comment on above: Performed By: #### C BCA ####[facility] ([address] [place] [address] VIR WBC (Bld) [#/Vol] 9.4 10*3/uL Normal 4-11 [facility] Comment on above: Performed By: #### C JOSSIE ####[facility] ([facility])[address] [place], [place] [address], [place] [address] VIR CBC auto differentialon 10-16 Basophils (Bld) [#/Vol] 0.1 10*3/uL 0.0 - 0.2 10*3/uL [facility] Basophils/100 WBC (Bld) 0.8 % [facility] Differential cell count method Nom (Bld) AUTOMATED DIFFERENTIAL [facility] Eosinophils (Bld) [#/Vol] 0.3 10*3/uL 0.0 - 0.4 10*3/uL [facility] Eosinophils/100 WBC (Bld) 3.4 % [facility] Erythrocyte distribution width (RBC) [Ratio] 13.5 % 11.5 - 15 % [facility] Hematocrit (Bld) [Volume fraction] 25.8 % Low 35 - 47 % [facility] Hemoglobin (Bld) [Mass/Vol] 8.7 g/dL Low 11.7 - 15.5 g/dL [facility] Interpretation and review of laboratory results Abnormal [facility] Lymphocytes (Bld) [#/Vol] 2 10*3/uL 1.0 - 3.5 10*3/uL [facility] Lymphocytes/100 WBC (Bld) 21.4 % [facility] MCH (RBC) [Entitic mass] 30.6 pg 27 - 34 pg [facility] MCHC (RBC) [Mass/Vol] 34 g/dL 32 - 3 6 g/dL [facility] MCV (RBC) [Entitic vol] 90 fL 80 - 100 fL [facility] Monocytes (Bld) [#/Vol] 1.5 10*3/uL High 0.0 - 0.9 10*3/uL [facility] Monocytes/100 WBC (Bld) 15.7 % [facility] Neutrophils (Bld) [#/Vol] 5.5 10*3/uL 1.5 - 6.6 10*3/uL [facility] Neutrophils/100 WBC (Bld) 58.7 % [facility] Platelet mean volume (Bld) [Entitic vol] 9 fL 7 - 12 fL [facility] Platelets (Bld) [#/Vol] 28 10*3/uL Critically low [facility] RBC (Bld) [#/Vol] 2.86 10*6/uL Low [facility] WBC LM Ql (Sput) 9.4 [facility] COMPREHENSIVE METABOLIC PANE José Luis 11-11-2024 Albumin [Mass/Vol] 2.5 g/dL Low 3.2-5.[address] [facility] Comment on above: Performed By: #### C MP ####[facility] ([address] [address] VIR ALP [Catalytic activity/Vol] 71 U/L Normal 39-130 [facility] Comment on above: Performed By: #### C MP ####[facility] ([address] [address] VIR ALT [Catalytic activity/Vol] 14 U/L Normal <=31 [facility] Comment on above: Performed By: #### C MP ####[facility] ([address] [address] VIR Anion gap [Moles/Vol] 12 mmol/L Normal 5-15 [facility] Comment on above: Performed By: #### C MP ####[facility] ([address] [address] VIR AST [Catalytic activity/Vol] 17 U/L Normal <=41 [facility] Comment on above: Performed By: #### C MP ####[facility] ([address] [address] VIR Bilirubin [Mass/Vol] 0.5 mg/dL Normal 0.3-1.2 [facility] Comment on above: Performed By: #### C MP ####[facility] ([facility])[address] [place] [address] [place] [address] VIR Calcium [Mass/Vol] 8.5 mg/dL Normal 8.5-10.[address] [facility] Comment on above: Performed By: #### C MP ####[facility] ([address] [place] [address] VIR Chloride [Moles/Vol] 101 mmol/L Normal 98-109 [facility] Comment on above: Performed By: #### C MP ####[facility] ([address] [place] [address] VIR CO2 [Moles/Vol] 24 mmol/L Normal 22-32 [facility] Comment on above: Performed By: #### C MP ####[facility] ([address] [place] [address] VIR Creatinine [Mass/Vol] 1.64 mg/dL High 0.40-1.00 [facility] Comment on above: Result Comment: METH OD TRACEABLE TO IDMS STANDARD Performed By: #### C MP ####[facility] ([address] [place] [address] VIR GFR/1.73 sq M.predicted among non-blacks MDRD (S/P/Bld) [Vol rate/Area] 31 mL/min/{1.73_m2} Low >=60 [facility] Comment on above: Result Comment: eGFR not reported due to non-numeric value for Creatinine.Reported eGFR is based on theCKD-EPI 2020 equation that doesnot use a race coefficient. Performed By: #### C MP ####[facility] ([address] [place] [address] VIR Glucose [Mass/Vol] 207 mg/dL High 65-[address] [facility] Comment on above: Performed By: #### C MP ####[facility] ([address] [place] [address] VIR Potassium [Moles/Vol] 3.9 mmol/L Normal 3.5-5.0 [facility] Comment on above: Performed By: #### C MP ####[facility] ([facility])[address] [place] [address] [place] [address] VIR Protein [Mass/Vol] 5.9 g/dL Low 6.0-8.[address] [facility] Comment on above: Performed By: #### C MP ####[facility] ([facility])[address] [place] [address] [place] [address] VIR Sodium [Moles/Vol] 137 mmol/L Normal 134-[address] [facility] Comment on above: Performed By: #### C MP ####[facility] ([address] [place] [address] VIR Urea nitrogen [Mass/Vol] 47 mg/dL High 5-27 [facility] Comment on above: Performed By: #### C MP ####[facility] ([address] [place] [address] VIR Comprehensive metabolic pane josé luis 11-11-2024 Albumin [Mass/Vol] 2.5 g/dL Low 3.2 - 5.3 g/dL [facility] ALP [Catalytic activity/Vol] 71 U/L 39 - 130 U/L [facility] ALT No additional P-5'-P [Catalytic activity/Vol] 14 U/L NINF - 31 U/L [facility] Anion gap [Moles/Vol] 12 mmol/L 5 - 15 mmol/L [facility] AST [Catalytic activity/Vol] 17 U/L NINF - 41 U/L [facility] Bilirubin [Mass/Vol] 0.5 mg/dL 0.3 - 1 .2 mg/dL [facility] Calcium [Mass/Vol] 8.5 mg/dL 8.5 - 10. 5 mg/dL [facility] Chloride [Moles/Vol] 101 mmol/L 98 - 10 9 mmol/L [facility] CO2 [Moles/Vol] 24 mmol/L 22 - 32 mmol/L [facility] Creatinine [Mass/Vol] 1.64 mg/dL High 0.40 - 1.00 mg/dL [facility] EGFR Non-Race Dependent 31 Low - PINF [facility] Glucose [Mass/Vol] 207 mg/dL High 65 - 99 mg/dL [facility] Interpretation and review of laboratory results Abnormal [facility] Potassium [Moles/Vol] 3.9 mmol/L 3.5 - 5.0 mmol/L [facility] Protein [Mass/Vol] 5.9 g/dL Low 6.0 - 8.0 g/dL [facility] Sodium [Moles/Vol] 137 mmol/L 134 - 146 mmol/L [facility] Urea nitrogen [Mass/Vol] 47 mg/dL High 5 - 27 mg/dL [facility] FIBRINOGENon 11-11-2024 FIBRINOGEN 417 mg/dL Normal 190-480 [facility] Comment on above: Performed By: #### F IBR ####[facility] ([facility])[address] [address] VIR Fibrinogenon 11-11-2024 Fibrinogen Coagulation.derived (PPP) [Mass/Vol] 417 mg/dL 190 - 480 mg/dL [facility] Interpretation and review of laboratory results Normal [facility] MAGNESIUMon 11-11-2024 Magnesium [Mass/Vol] 2.4 mg/dL Normal 1.8-2.6 [facility] Comment on above: Performed By: #### M G ####[facility] ([facility])[address] [place] [address] VIR MR FOOT RT WO CONTon 025 MR FOOT RT WO CONT Normal [facility] MR Foot - right WO contrasto n 11-11-2024 SECTRAPACS [facility] Radiology Study observation (narrative) [facility] MR Foot - right WO contrastO rdered By: Dinorah Kaur on 11-11-2024 [facility] Work Phone: Magnesiumon 11-11-2024 Interpretation and review of laboratory results Normal [facility] Magnesium [Mass/Vol] 2.4 mg/dL 1.8 - 2 .6 mg/dL [facility] No Panel Informationon 11-11 Interpretation and review of laboratory results Abnormal [facility] PHOSPHORUSon 11-11-2024 Phosphate [Mass/Vol] 2.6 mg/dL Normal 2.4-4.9 [facility] Comment on above: Performed By: #### P HOS ####[facility] ([address] [place] [address] VIR PROCALCITONINon 11-11-2024 PROCALCITONIN 0.20 ng/mL High <0.05 [facility] Comment on above: Order Comment: <0.50 ng/mL - Low risk of severe sepsis and/or septic shock.<2.00 ng/mL - Recommend retesting within 6-24 hours.>2.00 ng/mL - High risk of sepsis and/or septic shock. Performed By: #### P DAVID ####[facility] ([address] [place] [address] VIR Phosphoruson 11-11-2024 Interpretation and review of laboratory results Normal [facility] Phosphate [Mass/Vol] 2.6 mg/dL 2.4 - 4 .9 mg/dL [facility] Procalcitoninon 11-11-2024 Interpretation and review of laboratory results Abnormal [facility] Procalcitonin IA [Mass/Vol] 0.2 ng/mL High NINF - 0.05 ng/mL [facility] BEDSIDE GLUCOSEon 11-10-2024 Glucose [Mass/Vol] 312 mg/dL High 65-[address] [facility] Comment on above: Performed By: #### B EDG ####[facility] ([address] [place] [address] VIR Glucose [Mass/Vol] 204 mg/dL High 65-[address] [facility] Comment on above: Performed By: #### B EDG ####[facility] ([address] [address] VIR Glucose [Mass/Vol] 233 mg/dL High 65-[address] [facility] Comment on above: Performed By: #### B EDG ####[facility] ([address] [address] VIR Glucose [Mass/Vol] 100 mg/dL High 65-99 [facility] Comment on above: Performed By: #### B EDG ####[facility] ([address] [address] VIR Bedside Glucose *Place/Obtai n serum glucose if >500 per glucometer.on 11-10-2024 Glucose [Mass/Vol] 233 mg/dL High 65 - 99 mg/dL [facility] Interpretation and review of laboratory results Abnormal [facility] Glucose [Mass/Vol] 312 mg/dL High 65 - 99 mg/dL [facility] Interpretation and review of laboratory results Abnormal [facility] Glucose [Mass/Vol] 204 mg/dL High 65 - 99 mg/dL [facility] Interpretation and review of laboratory results Abnormal [facility] Interpretation and review of laboratory results Abnormal [facility] C-REACTIVE PROTEINon 025 C REACTIVE PROTEIN 14.5 mg/dL High <=0.[address] [facility] Comment on above: Performed By: #### C RP ####[facility] ([address] [place] [address] VIR C-reactive proteinon 025 CRP [Mass/Vol] 14.5 mg/dL High NINF - 0.7 mg/dL [facility] Interpretation and review of laboratory results Abnormal [facility] CBC WITH AUTO DIFFERENTIALon 11-10-2024 CELLAVISION BASOPHILS ABSOLUTE COUNT (10*3/UL) BY MANUAL COUNT 0.1 10*3/uL Normal 0.0-0.2 [facility] Comment on above: Result Comment: This is an appended report. These results have been appended to a previously preliminary verified report. Performed By: #### C BCA ####[facility] ([address] [address] VIR CELLAVISION BASOPHILS RELATIVE PERCENT BY MANUAL COUNT 1 % Normal [facility] Comment on above: Result Comment: This is an appended report. These results have been appended to a previously preliminary verified report. Performed By: #### C BCA ####[facility] ([address] [address] VIR CELLAVISION DIFFERENTIAL TYPE CELLAVISION DIFFERENTIAL Normal [facility] Comment on above: Result Comment: This is an appended report. These results have been appended to a previously preliminary verified report. Performed By: #### C BCA ####[facility] ([address] [address] VIR CELLAVISION EOSINOPHILS ABSOLUTE COUNT (10*3/UL) BY MANUAL COUNT 0.5 10*3/uL High 0.0-0.4 [facility] Comment on above: Result Comment: This is an appended report. These results have been appended to a previously preliminary verified report. Performed By: #### C BCA ####[facility] ([address] [address] VIR CELLAVISION EOSINOPHILS PERCENT BY MANUAL COUNT 4 % Normal [facility] Comment on above: Result Comment: This is an appended report. These results have been appended to a previously preliminary verified report. Performed By: #### C BCA ####[facility] ([address] [address] VIR CELLAVISION LYMPHOCYTES ABSOLUTE COUNT (10*3/UL) BY MANUAL COUNT 0.9 10*3/uL Low 1.0-3.5 [facility] Comment on above: Result Comment: This is an appended report. These results have been appended to a previously preliminary verified report. Performed By: #### C BCA ####[facility] ([address] [address] VIR CELLAVISION LYMPHOCYTES RELATIVE PERCENT BY MANUAL COUNT 8 % Normal [facility] Comment on above: Result Comment: This is an appended report. These results have been appended to a previously preliminary verified report. Performed By: #### C BCA ####[facility] ([facility])[address] [place] [address] VIR CELLAVISION METAMYELOCYTES RELATIVE PERCENT BY MANUAL COUNT 2 % Normal [facility] Comment on above: Result Comment: This is an appended report. These results have been appended to a previously preliminary verified report. Performed By: #### C BCA ####[facility] ([address] [address] VIR CELLAVISION MONOCYTES ABSOLUTE COUNT (10*3/UL) IN BLOOD BY MANUAL COUNT 0.5 10*3/uL Normal 0.0-0.9 [facility] Comment on above: Result Comment: This is an appended report. These results have been appended to a previously preliminary verified report. Performed By: #### C BCA ####[facility] ([address] [address] VIR CELLAVISION MONOCYTES RELATIVE PERCENT BY MANUAL COUNT 4 % Normal [facility] Comment on above: Result Comment: This is an appended report. These results have been appended to a previously preliminary verified report. Performed By: #### C BCA ####[facility] ([address] [address] VIR CELLAVISION MYELOCYTE RELATIVE PERCENT BY MANUAL COUNT 2 % Normal [facility] Comment on above: Result Comment: This is an appended report. These results have been appended to a previously preliminary verified report. Performed By: #### C BCA ####[facility] ([address] [address] VIR CELLAVISION NEUTROPHILS ABSOLUTE COUNT BY MANUAL COUNT 8.8 10*3/uL High 1.5-6.6 [facility] Comment on above: Result Comment: This is an appended report. These results have been appended to a previously preliminary verified report. Performed By: #### C BCA ####[facility] ([address] [address] VIR CELLAVISION NEUTROPHILS RELATIVE PERCENT BY MANUAL COUNT 79 % Normal [facility] Comment on above: Result Comment: This is an appended report. These results have been appended to a previously preliminary verified report. Performed By: #### C BCA ####[facility] ([address] [address] VIR Erythrocyte distribution width (RBC) [Ratio] 13.8 % Normal 11.5-15 [facility] Comment on above: Performed By: #### C BCA ####[facility] ([address] [address] VIR Hematocrit (Bld) [Volume fraction] 28.9 % Low 35-47 [facility] Comment on above: Performed By: #### C BCA ####[facility] ([address] [address] VIR Hemoglobin (Bld) [Mass/Vol] 9.7 g/dL Low 11.7-15.5 [facility] Comment on above: Performed By: #### C BCA ####[facility] ([address] [address] VIR MCH (RBC) [Entitic mass] 30.2 pg Normal 27-34 [facility] Comment on above: Performed By: #### C BCA ####[facility] ([address] [address] VIR MCHC (RBC) [Mass/Vol] 33.5 g/dL Normal 32-36 [facility] Comment on above: Performed By: #### C BCA ####[facility] ([address] [address] VIR MCV (RBC) [Entitic vol] 90 fL Normal 80-100 [facility] Comment on above: Performed By: #### C BCA ####[facility] ([address] [address] VIR Platelet mean volume (Bld) [Entitic vol] 8.2 fL Normal 7-12 [facility] Comment on above: Performed By: #### C BCA ####[facility] ([address] [address] VIR Platelets (Bld) [#/Vol] 19 10*3/uL Critically low 150-450 [facility] Comment on above: Performed By: #### C BCA ####[facility] ([address] [address] VIR RBC COUNT 3.21 X10E12/L Low 3.8-5.2 [facility] Comment on above: Performed By: #### C BCA ####[facility] ([address] [address] VIR WBC (Bld) [#/Vol] 11.1 10*3/uL High 4-11 [facility] Comment on above: Performed By: #### C BCA ####[facility] ([address] [address] VIR CBC auto differentialon 10-16 Basophils (Bld) [#/Vol] 0.1 10*3/uL 0.0 - 0.2 10*3/uL [facility] Basophils/100 WBC (Bld) 1 % [facility] Differential cell count method Nom (Bld) CELLAVISION DIFFERENTIAL [facility] Eosinophils (Bld) [#/Vol] 0.5 10*3/uL High 0.0 - 0.4 10*3/uL [facility] Eosinophils/100 WBC (Bld) 4 % [facility] Erythrocyte distribution width (RBC) [Ratio] 13.8 % 11.5 - 15 % [facility] Hematocrit (Bld) [Volume fraction] 28.9 % Low 35 - 47 % [facility] Hemoglobin (Bld) [Mass/Vol] 9.7 g/dL Low 11.7 - 15.5 g/dL [facility] Interpretation and review of laboratory results Abnormal [facility] Lymphocytes (Bld) [#/Vol] 0.9 10*3/uL Low 1.0 - 3.5 10*3/uL [facility] MCH (RBC) [Entitic mass] 30.2 pg 27 - 34 pg [facility] MCHC (RBC) [Mass/Vol] 33.5 g/dL 32 - 3 6 g/dL [facility] MCV (RBC) [Entitic vol] 90 fL 80 - 100 fL [facility] Metamyelocytes/100 WBC (Bld) 2 % [facility] Monocytes (Bld) [#/Vol] 0.5 10*3/uL 0.0 - 0.9 10*3/uL [facility] Monocytes/100 WBC (Bld) 4 % [facility] Myelocytes/100 WBC (Bld) 2 % [facility] Neutrophils (Bld) [#/Vol] 8.8 10*3/uL High 1.5 - 6.6 10*3/uL [facility] Neutrophils/100 WBC (Bld) 79 % [facility] Platelet mean volume (Bld) [Entitic vol] 8.2 fL 7 - 12 fL [facility] Platelets (Bld) [#/Vol] 19 10*3/uL Critically low [facility] RBC (Bld) [#/Vol] 3.21 10*6/uL Low [facility] Variant lymphocytes/100 WBC (Bld) 8 % [facility] WBC LM Ql (Sput) 11.1 High [facility] CLINICAL PATHOLOGY BLOOD SME AR REVIEWon 11-10-2024 CLINICAL PATHOLOGY BLOOD SMEAR REVIEW STAFF CLINICAL PATHOLOGY BLOOD SMEAR REVIEW Cancelled Normal [facility] COMPREHENSIVE METABOLIC PANE José Luis 11-10-2024 Albumin [Mass/Vol] 2.9 g/dL Low 3.2-5.[address] [facility] Comment on above: Performed By: #### C MP ####[facility] ([address] [place] [address] VIR ALP [Catalytic activity/Vol] 78 U/L Normal 39-130 [facility] Comment on above: Performed By: #### C MP ####[facility] ([address] [place] [address] VIR ALT [Catalytic activity/Vol] 15 U/L Normal <=31 [facility] Comment on above: Performed By: #### C MP ####[address] [place] [address] VIR Anion gap [Moles/Vol] 12 mmol/L Normal 5-15 [facility] Comment on above: Performed By: #### C MP ####[address] [place] [address] VIR AST [Catalytic activity/Vol] 19 U/L Normal <=41 [facility] Comment on above: Performed By: #### C MP ####[facility] ([address] [place] [address] VIR Bilirubin [Mass/Vol] 0.8 mg/dL Normal 0.3-1.2 [facility] Comment on above: Performed By: #### C MP ####[facility] ([address] [place] [address] VIR Calcium [Mass/Vol] 8.8 mg/dL Normal 8.5-10.[address] [facility] Comment on above: Performed By: #### C MP ####[facility] ([address] [place] [address] VIR Chloride [Moles/Vol] 104 mmol/L Normal 98-109 [facility] Comment on above: Performed By: #### C MP ####[facility] ([address] [place] [address] VIR CO2 [Moles/Vol] 22 mmol/L Normal 22-32 [facility] Comment on above: Performed By: #### C MP ####[facility] ([address] [place] [address] VIR Creatinine [Mass/Vol] 1.86 mg/dL High 0.40-1.00 [facility] Comment on above: Result Comment: METH OD TRACEABLE TO IDMS STANDARD Performed By: #### C MP ####[facility] ([address] [place] [address] VIR GFR/1.73 sq M.predicted among non-blacks MDRD (S/P/Bld) [Vol rate/Area] 27 mL/min/{1.73_m2} Low >=60 [facility] Comment on above: Result Comment: eGFR not reported due to non-numeric value for Creatinine.Reported eGFR is based on theCKD-EPI 2020 equation that doesnot use a race coefficient. Performed By: #### C MP ####[facility] ([address] [place] [address] VIR Glucose [Mass/Vol] 99 mg/dL Normal 65-[address] [facility] Comment on above: Performed By: #### C MP ####[facility] ([address] [place] [address] VIR Potassium [Moles/Vol] 4.4 mmol/L Normal 3.5-5.0 [facility] Comment on above: Performed By: #### C MP ####[facility] ([address] [place] [address] VIR Protein [Mass/Vol] 7.2 g/dL Normal 6.0-8.[address] [facility] Comment on above: Performed By: #### C MP ####[facility] ([facility])[address] [place] [address] [place] [address] VIR Sodium [Moles/Vol] 138 mmol/L Normal 134-[address] [facility] Comment on above: Performed By: #### C MP ####[facility] ([address] [place] [address] VIR Urea nitrogen [Mass/Vol] 65 mg/dL High 5-27 [facility] Comment on above: Performed By: #### C MP ####[facility] ([address] [place] [address] VIR Clinical Pathology Blood Sme ar Review ClinicalOrdered By: Tameka Adams on 11-10-[address] 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 Concern for hemolysis. [facility] Work Phone: Microscopic observation Cyto stain Nom (U) b0bgiLHoKNWbcWRyTMBhZ Ik5pTMgh7Z6amoePP8boW xdmTt4iTscQMYfctH7iSS gZIwfh8gkLGV8u4bffrdo BYHrOYmgKo9kuXNnmAjfO gAbC6Owf2HrOAb5eT25YS FohQ7dwTFoOYg4KQVrsSG ydzEyMjQwXHBhcGVyaDE1 GRCtFM8sahrzRKlqJShnJ OScggM3HDEcuJItW3VdPW UlFN6avklqUCI8DSxpFTB aRVU5ZtArZONrx2Yllsa1 MjBccGFyZFxwbGFpblxmc dEuYLUFLyTxPD7yKd1iFU A9MXhnG7CFVBJ4IWKhFU4 8uNWzXIpgRVnvPHoJGCA1 IAzwIWtwSFz2FKjBYAAnE TT2TaTyFK7FWoF8WMkvJe j3GCAXFFE2DSB4qBQtOEg vTFxwYXJccGFyIFdoaXRl NCBxa37wXGLrjYtqRXRnJ LZ9oNInzF2vao9alYGuHA ntfWt9eaF5uRAgTN9ttq7 wyVTnz5AnmB8zm8u1LjRR aXJjdWxhdGluZyBibGFzd NUiEYRiSQ2lfWHlQTSpbO gmmIFdTfMGnIq2JWJnlR9 zMADrNBzopaLbtpSri8Xv QOL9pYWbGPXpzmVaPCTfO FUgIW3rKyRjCKBga67pLW WwuXjkALZss3xvfW5tRYY lrXXfxv5kbR5ecHKfPeTx keQasDFvz5u8nWKecOwlM UYakJQdiX0bo1hql0J4dY 9ghZZkNW7pDT9fWMhhC9A zIMKcTMokWCIjfLugjL7n mFZscm9lDBwovCNwLPXaD GFyZSBtYXJrZWRseSBkZW IwILVwPGMdn6d3iLSwy9A uDBmjq3i4LNPjarJfE0Tq afZsLVNxx92gHNYdbgpgd dUtASQgDLIqUMYdnIB1YI zbgFPtZEPfMLUkTL8vELG hcn0= [facility] Work Phone: Pathology report final diagnosis Narrative k8kooTGuGJKmhBOoBASfW FyikbJlQONbsPInJ9Kozr hcOPepON5rVX3riOiaqPJ gwSBsSZZgIvMsg7cyw533 hRRyy9euLQZLYTepOERYV Mr8xEolC48yv7R8RhweU2 0xzLWtCJY4YPEiSHHxcJV rQYJlDKC4NQWorGUeS3ai MKTmZE6uyxtlJNwwFMepP JArnUQ9VUUphRAhV4FjAR EeEYdeMVVwosy0AaBbFu5 vdGVyeTcyMFxwYXJkXHBs QWihOJNvCiWyMa3pzH5do BUuDcHkeyOsiIMcf4m6rX 40cDBssFaorJWmY1XhaZN fv8g7P5dic34ff5nhLZ0q FH8ioaUpe8ncE7mpRUX3g WGswrJpEJ0jPPsrfZ8ysO Oaqo2poXRcPQBpel1xJz6 seSSbySVskPAbb7j4qDLf n8FkqH9ep8asM0CjvGtih Q0iNU3hjowcBmygVHGlLH FguYJ5ln5uXmDeUPNrRHQ iPAIylJV3BWpqtQUwgPMj wqImNudyEK0ckXAfrJ== [facility] Work Phone: [facility] Work Phone: Comprehensive metabolic pane [facility] 11-10-2024 Albumin [Mass/Vol] 2.9 g/dL Low 3.2 - 5.3 g/dL [facility] ALP [Catalytic activity/Vol] 78 U/L 39 - 130 U/L [facility] ALT No additional P-5'-P [Catalytic activity/Vol] 15 U/L NINF - 31 U/L [facility] Anion gap [Moles/Vol] 12 mmol/L 5 - 15 mmol/L [facility] AST [Catalytic activity/Vol] 19 U/L NINF - 41 U/L [facility] Bilirubin [Mass/Vol] 0.8 mg/dL 0.3 - 1 .2 mg/dL [facility] Calcium [Mass/Vol] 8.8 mg/dL 8.5 - 10. 5 mg/dL [facility] Chloride [Moles/Vol] 104 mmol/L 98 - 10 9 mmol/L [facility] CO2 [Moles/Vol] 22 mmol/L 22 - 32 mmol/L [facility] Creatinine [Mass/Vol] 1.86 mg/dL High 0.40 - 1.00 mg/dL [facility] EGFR Non-Race Dependent 27 Low - PINF [facility] Glucose [Mass/Vol] 99 mg/dL 65 - 99 mg/dL [facility] Potassium [Moles/Vol] 4.4 mmol/L 3.5 - 5.0 mmol/L [facility] Protein [Mass/Vol] 7.2 g/dL 6.0 - 8.0 g/dL [facility] Sodium [Moles/Vol] 138 mmol/L 134 - 146 mmol/L [facility] Urea nitrogen [Mass/Vol] 65 mg/dL High 5 - 27 mg/dL [facility] DIRECT COOMBSon 11-10-2024 POLYSPECIFIC KACIE Negative Normal [facility] Comment on above: Performed By: #### D ATB ####[facility] ([facility])[address] [place] [address] VIR Direct Coombson 11-10-2024 Polyspecific KACIE Negative [facility] FERRITINon 11-10-2024 Ferritin [Mass/Vol] 235 ng/mL Normal 11-307 [facility] Comment on above: Performed By: #### F ERR ####[facility] ([facility])[address] [address] VIR FOLATEon 11-10-2024 FOLIC ACID 13.5 ng/mL Normal >5.8 [facility] Comment on above: Performed By: #### F SOUTH ####[facility] ([facility])[address] [address] VIR Ferritinon 11-10-2024 Ferritin [Mass/Vol] 235 ng/mL 11 - 307 ng/mL [facility] Interpretation and review of laboratory results Normal [facility] Folateon 11-10-2024 Folate [Mass/Vol] 13.5 ng/mL 5.8 - PINF ng/mL [facility] Interpretation and review of laboratory results Normal [facility] HAPTOGLOBINon 11-10-2024 HAPTOGLOBIN 207 mg/dL Normal 32-228 [facility] Comment on above: Performed By: #### H APT ####[facility] ([facility])[address], [place] [address] VIR Haptoglobinon 11-10-2024 Haptoglobin Nephelometry [Mass/Vol] 207 mg/dL 32 - 228 mg/dL [facility] Interpretation and review of laboratory results Normal [facility] Heparin PF4 ABOrdered By: Hannah Malcolm on 11-10-2024 Heparin induced platelet IgG IA [OD] 0.137 NINF [facility] Interpretation and review of laboratory results Normal [facility] IRON AND TIBCon 11-10-2024 Iron [Mass/Vol] 45 ug/dL Low 50-170 [facility] Comment on above: Performed By: #### F EPR ####[facility] ([facility])[address], [place] [address] VIR IRON BINDING 230 ug/dL Low 250-425 [facility] Comment on above: Performed By: #### F EPR ####[facility] ([facility])[address], [place] [address] VIR IRON SATURATION 20 % SATURATION Normal 15-50 [facility] Comment on above: Performed By: #### F EPR ####[facility] ([facility])[address], [place] [address] VIR Transferrin [Mass/Vol] 164 mg/dL Low 168-336 [facility] Comment on above: Performed By: #### F EPR ####[facility] ([facility])[address], [place] [address] VIR Iron and TIBCon 11-10-2024 Interpretation and review of laboratory results Abnormal [facility] Iron [Mass/Vol] 45 ug/dL Low 50 - 170 ug/dL [facility] Iron binding capacity [Mass/Vol] 230 ug/dL Low 250 - 425 ug/dL [facility] Iron saturation [Mass fraction] 20 [facility] Transferrin [Mass or moles/Vol] 164 mg/dL Low 168 - 336 mg/dL [facility] LDHon 11-10-2024 Interpretation and review of laboratory results Normal [facility] LDH [Catalytic activity/Vol] 195 U/L 100 - 235 U/L [facility] LDH 195 U/L Normal 100-235 [facility] Comment on above: Performed By: #### L DH ####[facility] ([facility])[address] [address] VIR Light Blue Topon 11-10-2024 Extra Tube Auto Resulted [facility] MAGNESIUMon 11-10-2024 Magnesium [Mass/Vol] 2.7 mg/dL High 1.8-2.6 [facility] Comment on above: Performed By: #### M G ####[facility] ([address] [address] VIR MR LOWER LEG LT WO CONTon MR LOWER LEG LT WO CONT Normal [facility] MR LOWER LEG RT WO CONTon MR LOWER LEG RT WO CONT Normal [facility] MR Lower leg - left WO contr haris 11-10-[facility] (narrative) [facility] MR Lower leg - left WO contr astOrdered By: Paulino Correa on 11-10-2024 [facility] Work Phone: MR Lower leg - right WO cont raston 11-10-2024 SECTRAPACS [facility] Radiology Study observation (narrative) [facility] MR Lower leg - right WO cont rastOrdered By: Chaka Patel on 11-10-2024 [facility] Work Phone: Magnesiumon 11-10-2024 Magnesium [Mass/Vol] 2.7 mg/dL High 1.8 - 2 .6 mg/dL [facility] No Panel Informationon 11-10 [facility] Interpretation and review of laboratory results Abnormal [facility] PHOSPHORUSon 11-10-2024 Phosphate [Mass/Vol] 3.1 mg/dL Normal 2.4-4.9 [facility] Comment on above: Performed By: #### P HOS ####[facility] ([address] [address] VIR PROCALCITONINon 11-10-2024 PROCALCITONIN 0.27 ng/mL High <0.05 [facility] Comment on above: Order Comment: <0.50 ng/mL - Low risk of severe sepsis and/or septic shock.<2.00 ng/mL - Recommend retesting within 6-24 hours.>2.00 ng/mL - High risk of sepsis and/or septic shock. Performed By: #### P DAVID ####[facility] ([address] [address] VIR Phosphoruson 11-10-2024 Interpretation and review of laboratory results Normal [facility] Phosphate [Mass/Vol] 3.1 mg/dL 2.4 - 4 .9 mg/dL [facility] Procalcitoninon 11-10-2024 Interpretation and review of laboratory results Abnormal [facility] Procalcitonin IA [Mass/Vol] 0.27 ng/mL High NINF - 0.05 ng/mL [facility] RETICULOCYTESon 11-10-2024 RETICULOCYTE COUNT 1.8 % Normal 0.4-2.[address] [facility] Comment on above: Performed By: #### R ETIC ####[facility] ([facility])[address] [facility] [address], [place] [address] VIR Reticulocyteson 11-10-2024 Interpretation and review of laboratory results Normal [facility] Reticulocytes/100 RBC (Bld) 1.8 % 0.4 - 2.2 % [facility] VANCOMYCIN, RANDOMon VANCOMYCIN 22.2 ug/mL Normal 5.0-40.0 [facility] Comment on above: Order Comment: Peak 30-40 ug/mLTrough 5-20 ug/ml Performed By: #### V ANC ####[facility] ([address] [address] VIR VITAMIN B12on 11-10-2024 Cobalamin (Vitamin B12) [Mass/Vol] 182 pg/mL Normal 180-914 [facility] Comment on above: Performed By: #### B 12 ####[facility] ([facility])[address] [facility] [address], [place] [address] VIR Vancomycin, randomon 025 Interpretation and review of laboratory results Normal [facility] Vancomycin [Susc] 22.2 ug/mL 5.0 - 40.0 ug/mL [facility] Vitamin B12on 11-10-2024 Cobalamin (Vitamin B12) [Mass/Vol] 182 pg/mL 180 - 914 pg/mL [facility] Interpretation and review of laboratory results Normal [facility] BEDSIDE GLUCOSEon 11-09-2024 Glucose [Mass/Vol] 211 mg/dL High 65-[address] [facility] Comment on above: Performed By: #### B EDG ####[facility] ([address] [address] VIR Glucose [Mass/Vol] 185 mg/dL High 65-[address] [facility] Comment on above: Performed By: #### B EDG ####[facility] ([address] [address] VIR Glucose [Mass/Vol] 144 mg/dL High 65-[address] [facility] Comment on above: Performed By: #### B EDG ####[facility] ([address] [address] VIR Bedside Glucose *Place/Obtai n serum glucose if >500 per glucometer.on 11-09-2024 Glucose [Mass/Vol] 211 mg/dL High 65 - 99 mg/dL [facility] Interpretation and review of laboratory results Abnormal [facility] Glucose [Mass/Vol] 185 mg/dL High 65 - 99 mg/dL [facility] Interpretation and review of laboratory results Abnormal [facility] Glucose [Mass/Vol] 144 mg/dL High 65 - 99 mg/dL [facility] Interpretation and review of laboratory results Abnormal [facility] C-REACTIVE PROTEINon 025 C REACTIVE PROTEIN 17.6 mg/dL High <=0.[address] [facility] Comment on above: Performed By: #### C RP ####[facility] ([address] [place] [address] VIR C-reactive proteinon 025 CRP [Mass/Vol] 17.6 mg/dL High NINF - 0.7 mg/dL [facility] Interpretation and review of laboratory results Abnormal [facility] CBC WITH AUTO DIFFERENTIALon 11-09-2024 BASOPHILS ABSOLUTE COUNT (10*3/UL) BY AUTOMATED COUNT 0.1 10*3/uL Normal 0.0-0.2 [facility] Comment on above: Performed By: #### C BCA ####[facility] ([address] [address] VIR BASOPHILS RELATIVE PERCENT BY AUTOMATED COUNT 0.6 % Normal [facility] Comment on above: Performed By: #### C BCA ####[facility] ([address] [address] VIR CELLAVISION DIFFERENTIAL TYPE AUTOMATED DIFFERENTIAL Normal [facility] Comment on above: Performed By: #### C BCA ####[facility] ([address] [address] VIR Eosinophils (Bld) [#/Vol] 0.3 10*3/uL Normal 0.0-0.4 [facility] Comment on above: Performed By: #### C BCA ####[facility] ([address] [place] [address] VIR EOSINOPHILS RELATIVE PERCENT BY AUTOMATED COUNT 3.1 % Normal [facility] Comment on above: Performed By: #### C BCA ####[facility] ([address] [place] [address] VIR Erythrocyte distribution width (RBC) [Ratio] 13.7 % Normal 11.5-15 [facility] Comment on above: Performed By: #### C BCA ####[facility] ([address] [place] [address] VIR Hematocrit (Bld) [Volume fraction] 29.4 % Low 35-47 [facility] Comment on above: Performed By: #### C BCA ####[facility] ([address] [place] [address] VIR Hemoglobin (Bld) [Mass/Vol] 9.9 g/dL Low 11.7-15.5 [facility] Comment on above: Performed By: #### C BCA ####[facility] ([address] [place] [address] VIR LYMPHOCYTES ABSOLUTE COUNT (10*3/UL) BY AUTOMATED COUNT 1.2 10*3/uL Normal 1.0-3.5 [facility] Comment on above: Performed By: #### C BCA ####[facility] ([address] [place] [address] VIR LYMPHOCYTES RELATIVE PERCENT BY AUTOMATED COUNT 11.4 % Normal [facility] Comment on above: Performed By: #### C BCA ####[facility] ([address] [place] [address] VIR MCH (RBC) [Entitic mass] 30.3 pg Normal 27-34 [facility] Comment on above: Performed By: #### C BCA ####[facility] ([address] [place] [address] VIR MCHC (RBC) [Mass/Vol] 33.6 g/dL Normal 32-36 [facility] Comment on above: Performed By: #### C BCA ####[facility] ([address] [place] [address] VIR MCV (RBC) [Entitic vol] 90 fL Normal 80-100 [facility] Comment on above: Performed By: #### C BCA ####[facility] ([address] [place] [address] VIR MONOCYTES ABSOLUTE COUNT (10*3/UL) BY AUTOMATED COUNT 1.4 10*3/uL High 0.0-0.9 [facility] Comment on above: Performed By: #### C BCA ####[facility] ([address] [place] [address] VIR MONOCYTES RELATIVE PERCENT BY AUTOMATED COUNT 13.8 % Normal [facility] Comment on above: Performed By: #### C BCA ####[facility] ([address] [place] [address] VIR NEUTROPHILS ABSOLUTE COUNT BY AUTOMATED COUNT 7.4 10*3/uL High 1.5-6.6 [facility] Comment on above: Performed By: #### C BCA ####[facility] ([address] [place] [address] VIR NEUTROPHILS RELATIVE PERCENT BY AUTOMATED COUNT 71.1 % Normal [facility] Comment on above: Performed By: #### C BCA ####[facility] ([address] [place] [address] VIR Platelet mean volume (Bld) [Entitic vol] 8.7 fL Normal 7-12 [facility] Comment on above: Performed By: #### C BCA ####[facility] ([address] [place] [address] VIR Platelets (Bld) [#/Vol] 25 10*3/uL Critically low 150-450 [facility] Comment on above: Performed By: #### C BCA ####[facility] ([address] [place] [address] VIR RBC COUNT 3.27 X10E12/L Low 3.8-5.2 [facility] Comment on above: Performed By: #### C BCA ####[facility] ([address] [place] [address] VIR WBC (Bld) [#/Vol] 10.5 10*3/uL Normal 4-11 [facility] Comment on above: Performed By: #### C BCA ####[facility] ([address] [place] [address] VIR BASOPHILS ABSOLUTE COUNT (10*3/UL) BY AUTOMATED COUNT 0.1 10*3/uL Normal 0.0-0.2 [facility] Comment on above: Performed By: #### C BCA ####[facility] ([address] [place] [address] VIR BASOPHILS RELATIVE PERCENT BY AUTOMATED COUNT 0.8 % Normal [facility] Comment on above: Performed By: #### C BCA ####[facility] ([address] [place] [address] VIR CELLAVISION DIFFERENTIAL TYPE AUTOMATED DIFFERENTIAL Normal [facility] Comment on above: Performed By: #### C BCA ####[facility] ([address] [place] [address] VIR Eosinophils (Bld) [#/Vol] 0.3 10*3/uL Normal 0.0-0.4 [facility] Comment on above: Performed By: #### C BCA ####[facility] ([address] [address] VIR EOSINOPHILS RELATIVE PERCENT BY AUTOMATED COUNT 3.0 % Normal [facility] Comment on above: Performed By: #### C BCA ####[facility] ([address] [address] VIR Erythrocyte distribution width (RBC) [Ratio] 13.7 % Normal 11.5-15 [facility] Comment on above: Performed By: #### C BCA ####[facility] ([address] [address] VIR Hematocrit (Bld) [Volume fraction] 30.0 % Low 35-47 [facility] Comment on above: Performed By: #### C BCA ####[facility] ([address] [address] VIR Hemoglobin (Bld) [Mass/Vol] 10.0 g/dL Low 11.7-15.5 [facility] Comment on above: Performed By: #### C BCA ####[facility] ([address] [address] VIR LYMPHOCYTES ABSOLUTE COUNT (10*3/UL) BY AUTOMATED COUNT 0.7 10*3/uL Low 1.0-3.5 [facility] Comment on above: Performed By: #### C BCA ####[facility] ([address] [address] VIR LYMPHOCYTES RELATIVE PERCENT BY AUTOMATED COUNT 6.5 % Normal [facility] Comment on above: Performed By: #### C BCA ####[facility] ([address] [address] VIR MCH (RBC) [Entitic mass] 30.1 pg Normal 27-34 [facility] Comment on above: Performed By: #### C BCA ####[facility] ([address] [place] [address] VIR MCHC (RBC) [Mass/Vol] 33.4 g/dL Normal 32-36 [facility] Comment on above: Performed By: #### C BCA ####[facility] ([address] [address] VIR MCV (RBC) [Entitic vol] 90 fL Normal 80-100 [facility] Comment on above: Performed By: #### C BCA ####[facility] ([address] [address] VIR MONOCYTES ABSOLUTE COUNT (10*3/UL) BY AUTOMATED COUNT 1.6 10*3/uL High 0.0-0.9 [facility] Comment on above: Performed By: #### C BCA ####[facility] ([address] [address] VIR MONOCYTES RELATIVE PERCENT BY AUTOMATED COUNT 14.0 % Normal [facility] Comment on above: Performed By: #### C BCA ####[facility] ([address] [address] VIR NEUTROPHILS ABSOLUTE COUNT BY AUTOMATED COUNT 8.5 10*3/uL High 1.5-6.6 [facility] Comment on above: Performed By: #### C BCA ####[facility] ([address] [address] VIR NEUTROPHILS RELATIVE PERCENT BY AUTOMATED COUNT 75.7 % Normal [facility] Comment on above: Performed By: #### C BCA ####[facility] ([address] [place] [address] VIR Platelet mean volume (Bld) [Entitic vol] 8.3 fL Normal 7-12 [facility] Comment on above: Performed By: #### C BCA ####[facility] ([place])[address] [place] [address].[place] [address] VIR Platelets (Bld) [#/Vol] 27 10*3/uL Critically low 150-450 [facility] Comment on above: Performed By: #### C BCA ####[facility] ([address] [address] VIR RBC COUNT 3.33 X10E12/L Low 3.8-5.2 [facility] Comment on above: Performed By: #### C BCA ####[facility] ([address] [address] VIR WBC (Bld) [#/Vol] 11.2 10*3/uL High 4-11 [facility] Comment on above: Performed By: #### C BCA ####[facility] ([address] [address] VIR CBC auto differentialon 10-16 Basophils (Bld) [#/Vol] 0.1 10*3/uL 0.0 - 0.2 10*3/uL [facility] Basophils/100 WBC (Bld) 0.6 % [facility] Differential cell count method Nom (Bld) AUTOMATED DIFFERENTIAL [facility] Eosinophils (Bld) [#/Vol] 0.3 10*3/uL 0.0 - 0.4 10*3/uL [facility] Eosinophils/100 WBC (Bld) 3.1 % [facility] Erythrocyte distribution width (RBC) [Ratio] 13.7 % 11.5 - 15 % [facility] Hematocrit (Bld) [Volume fraction] 29.4 % Low 35 - 47 % [facility] Hemoglobin (Bld) [Mass/Vol] 9.9 g/dL Low 11.7 - 15.5 g/dL [facility] Interpretation and review of laboratory results Abnormal [facility] Lymphocytes (Bld) [#/Vol] 1.2 10*3/uL 1.0 - 3.5 10*3/uL [facility] Lymphocytes/100 WBC (Bld) 11.4 % [facility] MCH (RBC) [Entitic mass] 30.3 pg 27 - 34 pg [facility] MCHC (RBC) [Mass/Vol] 33.6 g/dL 32 - 3 6 g/dL [facility] MCV (RBC) [Entitic vol] 90 fL 80 - 100 fL [facility] Monocytes (Bld) [#/Vol] 1.4 10*3/uL High 0.0 - 0.9 10*3/uL [facility] Monocytes/100 WBC (Bld) 13.8 % [facility] Neutrophils (Bld) [#/Vol] 7.4 10*3/uL High 1.5 - 6.6 10*3/uL [facility] Neutrophils/100 WBC (Bld) 71.1 % [facility] Platelet mean volume (Bld) [Entitic vol] 8.7 fL 7 - 12 fL [facility] Platelets (Bld) [#/Vol] 25 10*3/uL Critically low [facility] RBC (Bld) [#/Vol] 3.27 10*6/uL Low [facility] WBC LM Ql (Sput) 10.5 [facility] CBC auto differentialOrdered By: Jodi Pantoja on 11-09-2024 Basophils (Bld) [#/Vol] 0.1 10*3/uL 0.0 - 0.2 10*3/uL [facility] Basophils/100 WBC (Bld) 0.8 % [facility] Differential cell count method Nom (Bld) AUTOMATED DIFFERENTIAL [facility] Eosinophils (Bld) [#/Vol] 0.3 10*3/uL 0.0 - 0.4 10*3/uL [facility] Eosinophils/100 WBC (Bld) 3 % [facility] Erythrocyte distribution width (RBC) [Ratio] 13.7 % 11.5 - 15 % [facility] Hematocrit (Bld) [Volume fraction] 30 % Low 35 - 47 % [facility] Hemoglobin (Bld) [Mass/Vol] 10 g/dL Low 11.7 - 15.5 g/dL [facility] Interpretation and review of laboratory results Abnormal [facility] Lymphocytes (Bld) [#/Vol] 0.7 10*3/uL Low 1.0 - 3.5 10*3/uL [facility] Lymphocytes/100 WBC (Bld) 6.5 % [facility] MCH (RBC) [Entitic mass] 30.1 pg 27 - 34 pg [facility] MCHC (RBC) [Mass/Vol] 33.4 g/dL 32 - 3 6 g/dL [facility] MCV (RBC) [Entitic vol] 90 fL 80 - 100 fL [facility] Monocytes (Bld) [#/Vol] 1.6 10*3/uL High 0.0 - 0.9 10*3/uL [facility] Monocytes/100 WBC (Bld) 14 % [facility] Neutrophils (Bld) [#/Vol] 8.5 10*3/uL High 1.5 - 6.6 10*3/uL [facility] Neutrophils/100 WBC (Bld) 75.7 % [facility] Platelet mean volume (Bld) [Entitic vol] 8.3 fL 7 - [address] [facility] Platelets (Bld) [#/Vol] 27 10*3/uL Critically low [facility] RBC (Bld) [#/Vol] 3.33 10*6/uL Low [facility] WBC LM Ql (Sput) 11.2 High [facility] COMPREHENSIVE METABOLIC PANE José Luis 11-09-2024 Albumin [Mass/Vol] 3.3 g/dL Normal 3.2-5.[address] [facility] Comment on above: Performed By: #### C MP ####[facility] ([facility])[address] [place] [address] VIR ALP [Catalytic activity/Vol] 85 U/L Normal 39-130 [facility] Comment on above: Performed By: #### C MP ####[facility] ([facility])[address] [place] [address] VIR ALT [Catalytic activity/Vol] 18 U/L Normal <=31 [facility] Comment on above: Performed By: #### C MP ####[facility] ([address] [place] [address] VIR Anion gap [Moles/Vol] 7 mmol/L Normal 5-15 [facility] Comment on above: Performed By: #### C MP ####[facility] ([address] [place] [address] VIR AST [Catalytic activity/Vol] 22 U/L Normal <=41 [facility] Comment on above: Performed By: #### C MP ####[facility] ([address] [place] [address] VIR Bilirubin [Mass/Vol] 0.6 mg/dL Normal 0.3-1.2 [facility] Comment on above: Performed By: #### C MP ####[facility] ([address] [place] [address] VIR Calcium [Mass/Vol] 8.5 mg/dL Normal 8.5-10.[address] [facility] Comment on above: Performed By: #### C MP ####[facility] ([address] [place] [address] VIR Chloride [Moles/Vol] 106 mmol/L Normal 98-109 [facility] Comment on above: Performed By: #### C MP ####[facility] ([address] [place] [address] VIR CO2 [Moles/Vol] 22 mmol/L Normal 22-32 [facility] Comment on above: Performed By: #### C MP ####[facility] ([address] [place] [address] VIR Creatinine [Mass/Vol] 2.35 mg/dL High 0.40-1.00 [facility] Comment on above: Result Comment: METH OD TRACEABLE TO IDMS STANDARD Performed By: #### C MP ####[facility] ([address] [place] [address] VIR GFR/1.73 sq M.predicted among non-blacks MDRD (S/P/Bld) [Vol rate/Area] 20 mL/min/{1.73_m2} Low >=60 [facility] Comment on above: Result Comment: eGFR not reported due to non-numeric value for Creatinine.Reported eGFR is based on theCKD-EPI 2020 equation that doesnot use a race coefficient. Performed By: #### C MP ####[facility] ([address] [place] [address] VIR Glucose [Mass/Vol] 82 mg/dL Normal 65-99 [facility] Comment on above: Performed By: #### C MP ####[facility] ([address] [place] [address] VIR Potassium [Moles/Vol] 5.3 mmol/L High 3.5-5.0 [facility] Comment on above: Performed By: #### C MP ####[facility] ([address] [place] [address] VIR Protein [Mass/Vol] 7.7 g/dL Normal 6.0-8.[address] [facility] Comment on above: Performed By: #### C MP ####[facility] ([address] [place] [address] VIR Sodium [Moles/Vol] 135 mmol/L Normal 134-146 [facility] Comment on above: Performed By: #### C MP ####[facility] ([address] [place] [address] VIR Urea nitrogen [Mass/Vol] 76 mg/dL High 5-27 [facility] Comment on above: Performed By: #### C MP ####[facility] ([address] [place] [address] VIR Comprehensive metabolic pane josé luis 11-09-2024 Albumin [Mass/Vol] 3.3 g/dL 3.2 - 5.3 g/dL [facility] ALP [Catalytic activity/Vol] 85 U/L 39 - 130 U/L [facility] ALT No additional P-5'-P [Catalytic activity/Vol] 18 U/L NINF - 31 U/L [facility] Anion gap [Moles/Vol] 7 mmol/L 5 - 15 mmol/L [facility] AST [Catalytic activity/Vol] 22 U/L NINF - 41 U/L [facility] Bilirubin [Mass/Vol] 0.6 mg/dL 0.3 - 1 .2 mg/dL [facility] Calcium [Mass/Vol] 8.5 mg/dL 8.5 - 10. 5 mg/dL [facility] Chloride [Moles/Vol] 106 mmol/L 98 - 10 9 mmol/L [facility] CO2 [Moles/Vol] 22 mmol/L 22 - 32 mmol/L [facility] Creatinine [Mass/Vol] 2.35 mg/dL High 0.40 - 1.00 mg/dL [facility] EGFR Non-Race Dependent 20 Low - PINF [facility] Glucose [Mass/Vol] 82 mg/dL 65 - 99 mg/dL [facility] Potassium [Moles/Vol] 5.3 mmol/L High 3.5 - 5.0 mmol/L [facility] Protein [Mass/Vol] 7.7 g/dL 6.0 - 8.0 g/dL [facility] Sodium [Moles/Vol] 135 mmol/L 134 - 146 mmol/L [facility] Urea nitrogen [Mass/Vol] 76 mg/dL High 5 - 27 mg/dL [facility] FERRITINon 11-09-2024 Ferritin [Mass/Vol] 256 ng/mL Normal 11-307 [facility] Comment on above: Performed By: #### F ERR ####[facility] (TT)[address] [facility] [address] [address] VIR FOLATEon 11-09-2024 FOLIC ACID 12.9 ng/mL Normal >5.8 [facility] Comment on above: Performed By: #### F SOUTH ####[facility] ([facility])[address], [place] [address] VIR FOLIC ACID 12.3 ng/mL Normal >5.8 [facility] Comment on above: Performed By: #### F SOUTH ####[facility] ([facility])[address], [place] [address] VIR Ferritinon 11-09-2024 Ferritin [Mass/Vol] 256 ng/mL 11 - 307 ng/mL [facility] Interpretation and review of laboratory results Normal [facility] Folateon 11-09-2024 Folate [Mass/Vol] 12.9 ng/mL 5.8 - PINF ng/mL [facility] Interpretation and review of laboratory results Normal [facility] Folate [Mass/Vol] 12.3 ng/mL 5.8 - PINF ng/mL [facility] Interpretation and review of laboratory results Normal [facility] HEPARIN PF4 ANTIBODYon 11-09 HEPARIN PF4 ANTIBODY (HIT) 0.137 OD Normal <0.400 [facility] Comment on above: Result Comment: ---- -- O.D. Interpretation--- < 0.400 Negative >= 0.400 Positive Performed By: #### H EPF4 ####[facility] ([facility])[address], [place] [address] VIR IRON AND TIBCon 11-09-2024 Iron [Mass/Vol] 29 ug/dL Low 50-170 [facility] Comment on above: Performed By: #### F EPR ####[facility] ([facility])[address], [place] [address] VIR IRON BINDING 258 ug/dL Normal 250-425 [facility] Comment on above: Performed By: #### F EPR ####[facility] ([facility])[address] [facility] [address] [address] VIR IRON SATURATION 11 % SATURATION Low 15-50 [facility] Comment on above: Performed By: #### F EPR ####[facility] ([facility])[address], [place] [address] VIR Transferrin [Mass/Vol] 184 mg/dL Normal 168-336 [facility] Comment on above: Performed By: #### F EPR ####[facility] ([facility])[address] [facility] [address], [place] [address] VIR Iron and TIBCon 11-09-2024 Interpretation and review of laboratory results Abnormal [facility] Iron [Mass/Vol] 29 ug/dL Low 50 - 170 ug/dL [facility] Iron binding capacity [Mass/Vol] 258 ug/dL 250 - 425 ug/dL [facility] Iron saturation [Mass fraction] 11 Low [facility] Transferrin [Mass or moles/Vol] 184 mg/dL 168 - 336 mg/dL [facility] LACTATE W/ REFLEXon 11-10-19 25 LACTATE W/REFLEX 1.1 mmol/L Normal 0.4-2.0 [facility] Comment on above: Order Comment: If la ctate is normal x2, may discontinue.Result did not trigger repeat Lactate,re-order if needed. Performed By: #### L ACTS ####[facility] ([address] [place] [address] VIR LACTATE W/REFLEX 0.9 mmol/L Normal 0.4-2.0 [facility] Comment on above: Order Comment: If la ctate is normal x2, may discontinue.Result did not trigger repeat Lactate,re-order if needed. Performed By: #### L ACTS ####[facility] ([facility])[address] [place] [address].[place] [address] VIR LACTATE W/REFLEX 1.1 mmol/L Normal 0.4-2.0 [facility] Comment on above: Order Comment: If la ctate is normal x2, may discontinue.Result did not trigger repeat Lactate,re-order if needed. Performed By: #### L ACTS ####[facility] ([address] [place] [address] VIR Lactate w/ Reflexon 11-10-19 Interpretation and review of laboratory results Normal [facility] Lactate (P katie) [Moles/Vol] 1.1 mmol/L 0.4 - 2.0 mmol/L [facility] Interpretation and review of laboratory results Normal [facility] Lactate (P katie) [Moles/Vol] 0.9 mmol/L 0.4 - 2.0 mmol/L [facility] Interpretation and review of laboratory results Normal [facility] Lactate (P katie) [Moles/Vol] 1.1 mmol/L 0.4 - 2.0 mmol/L [facility] Light Blue Topon 11-09-2024 Extra Tube Auto Resulted [facility] MAGNESIUMon 11-09-2024 Magnesium [Mass/Vol] 2.9 mg/dL High 1.8-2.6 [facility] Comment on above: Performed By: #### M G ####[facility] ([address] [place] [address] VIR Magnesiumon 11-09-2024 Magnesium [Mass/Vol] 2.9 mg/dL High 1.8 - 2 .6 mg/dL [facility] No Panel Informationon 11-09 Interpretation and review of laboratory results Abnormal [facility] POTASSIUMon 11-09-2024 Potassium [Moles/Vol] 5.2 mmol/L High 3.5-5.0 [facility] Comment on above: Performed By: #### K ####[facility] ([address] [place] [address] VIR PROCALCITONINon 11-09-2024 PROCALCITONIN 0.45 ng/mL High <0.05 [facility] Comment on above: Order Comment: <0.50 ng/mL - Low risk of severe sepsis and/or septic shock.<2.00 ng/mL - Recommend retesting within 6-24 hours.>2.00 ng/mL - High risk of sepsis and/or septic shock. Performed By: #### P DAVID ####[facility] ([address] [place] [address] VIR PROTEIN, URINE, RANDOMon URINE PROTEIN, RANDOM (MG/L) 210 mg/L High <120 [facility] Comment on above: Performed By: #### U TPR ####[facility] ([address] [place] [address] VIR Potassiumon 11-09-2024 Interpretation and review of laboratory results Abnormal [facility] Potassium [Moles/Vol] 5.2 mmol/L High 3.5 - 5.0 mmol/L [facility] Procalcitoninon 11-09-2024 Interpretation and review of laboratory results Abnormal [facility] Procalcitonin IA [Mass/Vol] 0.45 ng/mL High NINF - 0.05 ng/mL [facility] Protein, urine, randomon Interpretation and review of laboratory results Abnormal [facility] Protein (U) [Mass/Vol] 210 mg/L High NINF - 120 mg/L [facility] SODIUM, URINE, RANDOMon 10-16 Sodium (U) [Moles/Vol] 20 mmol/L Normal [facility] Comment on above: Performed By: #### U EHSAN ####[facility] ([facility])[address] [facility] [address], [place] [address] VIR Sodium, urine, randomon 10-16 Sodium (U) [Moles/Vol] 20 mmol/L [facility] URINALYSISon 11-09-2024 Bilirubin Ql (U) Negative Normal Negative [facility] Comment on above: Order Comment: With microscopic exam of the urine sedimentUrine received without preservative. Delays in transport may affect results. Interpret with caution. A clinical correlation is recommended. Performed By: #### U A ####[facility] ([address] [address] VIR BLOOD/HGB Negative Normal Negative [facility] Comment on above: Order Comment: With microscopic exam of the urine sedimentUrine received without preservative. Delays in transport may affect results. Interpret with caution. A clinical correlation is recommended. Performed By: #### U A ####[facility] ([address] [address] VIR Color (U) Yellow Normal Yellow, Colorless [facility] Comment on above: Order Comment: With microscopic exam of the urine sedimentUrine received without preservative. Delays in transport may affect results. Interpret with caution. A clinical correlation is recommended. Performed By: #### U A ####[facility] ([address] [address] VIR Glucose Ql (U) Negative Normal Negative, 250 mg/dL [facility] Comment on above: Order Comment: With microscopic exam of the urine sedimentUrine received without preservative. Delays in transport may affect results. Interpret with caution. A clinical correlation is recommended. Performed By: #### U A ####[facility] ([address] [address] VIR Ketones Ql (U) Negative Normal Negative [facility] Comment on above: Order Comment: With microscopic exam of the urine sedimentUrine received without preservative. Delays in transport may affect results. Interpret with caution. A clinical correlation is recommended. Performed By: #### U A ####[facility] ([address] [address] VIR Leukocyte esterase Test strip Ql (U) Trace Abnormal Negative [facility] Comment on above: Order Comment: With microscopic exam of the urine sedimentUrine received without preservative. Delays in transport may affect results. Interpret with caution. A clinical correlation is recommended. Performed By: #### U A ####[facility] ([address] [address] VIR Nitrite Ql (U) Negative Normal Negative [facility] Comment on above: Order Comment: With microscopic exam of the urine sedimentUrine received without preservative. Delays in transport may affect results. Interpret with caution. A clinical correlation is recommended. Performed By: #### U A ####[facility] ([address] [address] VIR PH,URINE 6.0 Normal 5.0-8.5 [facility] Comment on above: Order Comment: With microscopic exam of the urine sedimentUrine received without preservative. Delays in transport may affect results. Interpret with caution. A clinical correlation is recommended. Performed By: #### U A ####[facility] ([address] [address] VIR Protein Ql (U) Negative Normal Negative [facility] Comment on above: Order Comment: With microscopic exam of the urine sedimentUrine received without preservative. Delays in transport may affect results. Interpret with caution. A clinical correlation is recommended. Performed By: #### U A ####[facility] ([address] [address] VIR Specific gravity (U) [Rel density] 1.020 Normal 1.003-1.035 [facility] Comment on above: Order Comment: With microscopic exam of the urine sedimentUrine received without preservative. Delays in transport may affect results. Interpret with caution. A clinical correlation is recommended. Performed By: #### U A ####[facility] ([address] [address] VIR SQUAMOUS EPITHELIUM 12 High 0-5 [facility] Comment on above: Order Comment: With microscopic exam of the urine sedimentUrine received without preservative. Delays in transport may affect results. Interpret with caution. A clinical correlation is recommended. Performed By: #### U A ####[facility] ([address] [address] VIR TURBIDITY Clear Normal Clear [facility] Comment on above: Order Comment: With microscopic exam of the urine sedimentUrine received without preservative. Delays in transport may affect results. Interpret with caution. A clinical correlation is recommended. Performed By: #### U A ####[address] [address] VIR UROBILINOGEN 0.2 eu/dL Normal 0.2 eu/dL, 1.0 eu/dL [facility] Comment on above: Order Comment: With microscopic exam of the urine sedimentUrine received without preservative. Delays in transport may affect results. Interpret with caution. A clinical correlation is recommended. Performed By: #### U A ####[facility] ([address] [address] VIR W.B.CELLS 1 Normal 0-5 [facility] Comment on above: Order Comment: With microscopic exam of the urine sedimentUrine received without preservative. Delays in transport may affect results. Interpret with caution. A clinical correlation is recommended. Performed By: #### U A ####[facility] ([address] [address] VIR URINE CREATININE,RANDOMon URINE CREATININE,RDM 96.22 mg/dL Normal [facility] Comment on above: Performed By: #### U CRR ####[address] [address] VIR Urinalysison 11-09-2024 Bilirubin Ql (U) Negative Negative [facility] Color (U) Yellow Yellow, Colorless [facility] Epithelial cells Auto (Urine sed) [#/Area] 12 High 0 - 5 [facility] Glucose (U) [Mass/Vol] Negative Negat mirtha, 250 mg/dL [facility] Hemoglobin Auto test strip Ql (U) Negative Negative [facility] Interpretation and review of laboratory results Abnormal [facility] Ketones (U) [Mass/Vol] Negative Negative [facility] Leukocyte esterase Auto test strip Ql (U) Trace Abnormal Negative [facility] Nitrite Auto test strip Ql (U) Negative Negative [facility] pH (U) 6 [pH] 5.0 - 8.5 [facility] Protein (U) [Mass/Vol] Negative Negative [facility] Specific gravity Refractometry automated (U) [Rel density] 1.02 1.003 - 1.035 [facility] Turbidity Ql (U) Clear Clear [facility] Urobilinogen Qn (U) [id number] {Lance'U}/dL 0.2 eu/dL, 1.0 eu/dL [facility] WBC Auto (Urine sed) [#/Area] 1 0 - 5 [facility] Urine Creatinine,randomon Creatinine (U) [Mass/Vol] 96.22 mg/dL [facility] VITAMIN B12on 11-09-2024 Cobalamin (Vitamin B12) [Mass/Vol] 213 pg/mL Normal 180-914 [facility] Comment on above: Performed By: #### B 12 ####[facility] ([facility])[address] [facility] [address], [place] [address] VIR Cobalamin (Vitamin B12) [Mass/Vol] 214 pg/mL Normal 180-914 [facility] Comment on above: Performed By: #### B 12 ####[facility] ([facility])[address] [facility] [address], [place] [address] VIR VITAMIN D 25 HYDROXYon 11-09 VITAMIN D 25 HYD TOT 63.5 ng/mL Normal 30.0-100.0 [facility] Comment on above: Order Comment: Vitam in D status 25 [place] Vitamin D Deficiency <20 ng/mLInsufficiency 20-29 ng/mLSufficiency 30-100 ng/mLToxicity >100 ng/mLNOTE: A pediatric reference range has not been established by the bulk system operator of this kit. The [place] [employer] recommends a Vitamin D level of = or >20ng/mL in infants and children. Performed By: #### V ITD ####[facility] ([facility])[address] [address] VIR Vitamin B12on 11-09-2024 Cobalamin (Vitamin B12) [Mass/Vol] 213 pg/mL 180 - 914 pg/mL [facility] Interpretation and review of laboratory results Normal [facility] Cobalamin (Vitamin B12) [Mass/Vol] 214 pg/mL 180 - 914 pg/mL [facility] Interpretation and review of laboratory results Normal [facility] Vitamin D 25 hydroxyon 11-09 25-hydroxyvitamin D3 [Mass/Vol] 63.5 ng/mL 30.0 - 100.0 ng/mL [facility] Interpretation and review of laboratory results Normal [facility] APTTon 11-08-2024 aPTT Coag (PPP) [Time] 33 s Pr [facility] Interpretation and review of laboratory results Normal [facility] aPTT Coag (Bld) [Time] 33 s Normal 26-37 [facility] Comment on above: Performed By: #### P TT ####[facility] ([facility])[address] [place] [address] VIR B-TYPE NATRIURETIC PEPTIDEon 11-08-2024 Natriuretic peptide B (Bld) [Mass/Vol] 57 pg/mL Normal <=100 [facility] Comment on above: Performed By: #### B DIRECTOR OF CODING ####[facility] ([facility])[address] [place] [address] [place] [address] VIR B-type natriuretic peptideOr dered By: Evaristo King on 11-08-2024 Interpretation and review of laboratory results Normal [facility] Natriuretic peptide B (Bld) [Mass/Vol] 57 pg/mL NINF - 100 pg/mL [facility] BEDSIDE GLUCOSEon 11-08-2024 Glucose [Mass/Vol] 156 mg/dL High 65-[address] [facility] Comment on above: Performed By: #### B EDG ####[facility] ([address] [place] [address] VIR Glucose [Mass/Vol] 116 mg/dL High 65-[address] [facility] Comment on above: Performed By: #### B EDG ####[facility] ([address] [place] [address] VIR BLOOD CULTUREon 11-08-2024 Bacteria identified Cx Nom (Bld) CULTURE RESULTS NO GROWTH 5 DAYS Normal [facility] Comment on above: Order Comment: *SIRS Criteria: [...] be affected. Performed By: #### B C ####[facility] ([facility])[address] [facility] [facility] [address], [place] [address] VIR Bacteria identified Cx Nom (Bld) CULTURE RESULTS NO GROWTH 5 DAYS Normal [facility] Comment on above: Order Comment: *SIRS Criteria: [...] are improving Performed By: #### B C ####[facility] (TT)[address] [facility] [address], [place] [address] VIR Bedside Glucose *Place/Obtai n serum glucose if >500 per glucometer.on 11-08-2024 Glucose [Mass/Vol] 156 mg/dL High 65 - 99 mg/dL [facility] Interpretation and review of laboratory results Abnormal [facility] Glucose [Mass/Vol] 116 mg/dL High 65 - 99 mg/dL [facility] Interpretation and review of laboratory results Abnormal [facility] C-REACTIVE PROTEINon 025 C REACTIVE PROTEIN 16.6 mg/dL High <=0.[address] [facility] Comment on above: Performed By: #### C RP ####[facility] ([facility])[address] [place] [address] [place] [address] VIR C-reactive proteinon 025 CRP [Mass/Vol] 16.6 mg/dL High NINF - 0.7 mg/dL [facility] Interpretation and review of laboratory results Abnormal [facility] CBC WITH AUTO DIFFERENTIALon 11-08-2024 CELLAVISION ATYPICAL LYMPHOCYTES RELATIVE PERCENT BY MANUAL COUNT 1 % Normal [facility] Comment on above: Result Comment: This is an appended report. These results have been appended to a previously preliminary verified report. Performed By: #### C BCA ####[facility] ([facility])[address] [place] [address] [place] [address] VIR CELLAVISION DIFFERENTIAL TYPE CELLAVISION DIFFERENTIAL Normal [facility] Comment on above: Result Comment: This is an appended report. These results have been appended to a previously preliminary verified report. Performed By: #### C BCA ####[facility] ([address] [place] [address] VIR CELLAVISION EOSINOPHILS ABSOLUTE COUNT (10*3/UL) BY MANUAL COUNT 0.2 10*3/uL Normal 0.0-0.4 [facility] Comment on above: Result Comment: This is an appended report. These results have been appended to a previously preliminary verified report. Performed By: #### C BCA ####[facility] ([address] [address] VIR CELLAVISION EOSINOPHILS PERCENT BY MANUAL COUNT 2 % Normal [facility] Comment on above: Result Comment: This is an appended report. These results have been appended to a previously preliminary verified report. Performed By: #### C BCA ####[facility] ([address] [address] VIR CELLAVISION LYMPHOCYTES ABSOLUTE COUNT (10*3/UL) BY MANUAL COUNT 1.5 10*3/uL Normal 1.0-3.5 [facility] Comment on above: Result Comment: This is an appended report. These results have been appended to a previously preliminary verified report. Performed By: #### C BCA ####[facility] ([address] [address] VIR CELLAVISION LYMPHOCYTES RELATIVE PERCENT BY MANUAL COUNT 11 % Normal [facility] Comment on above: Result Comment: This is an appended report. These results have been appended to a previously preliminary verified report. Performed By: #### C BCA ####[facility] ([address] [address] VIR CELLAVISION MONOCYTES ABSOLUTE COUNT (10*3/UL) IN BLOOD BY MANUAL COUNT 1.5 10*3/uL High 0.0-0.9 [facility] Comment on above: Result Comment: This is an appended report. These results have been appended to a previously preliminary verified report. Performed By: #### C BCA ####[facility] ([address] [address] VIR CELLAVISION MONOCYTES RELATIVE PERCENT BY MANUAL COUNT 12 % Normal [facility] Comment on above: Result Comment: This is an appended report. These results have been appended to a previously preliminary verified report. Performed By: #### C BCA ####[facility] ([address] [address] VIR CELLAVISION NEUTROPHILS ABSOLUTE COUNT BY MANUAL COUNT 9.8 10*3/uL High 1.5-6.6 [facility] Comment on above: Result Comment: This is an appended report. These results have been appended to a previously preliminary verified report. Performed By: #### C BCA ####[facility] ([address] [address] VIR CELLAVISION NEUTROPHILS RELATIVE PERCENT BY MANUAL COUNT 75 % Normal [facility] Comment on above: Result Comment: This is an appended report. These results have been appended to a previously preliminary verified report. Performed By: #### C BCA ####[facility] ([address] [address] VIR Erythrocyte distribution width (RBC) [Ratio] 13.5 % Normal 11.5-15 [facility] Comment on above: Performed By: #### C BCA ####[facility] ([address] [address] VIR Hematocrit (Bld) [Volume fraction] 30.1 % Low 35-47 [facility] Comment on above: Performed By: #### C BCA ####[facility] ([address] [address] VIR Hemoglobin (Bld) [Mass/Vol] 10.1 g/dL Low 11.7-15.5 [facility] Comment on above: Performed By: #### C BCA ####[facility] ([address] [address] VIR MCH (RBC) [Entitic mass] 30.3 pg Normal 27-34 [facility] Comment on above: Performed By: #### C BCA ####[facility] ([address] [address] VIR MCHC (RBC) [Mass/Vol] 33.6 g/dL Normal 32-36 [facility] Comment on above: Performed By: #### C BCA ####[facility] ([address] [address] VIR MCV (RBC) [Entitic vol] 90 fL Normal 80-100 [facility] Comment on above: Performed By: #### C BCA ####[facility] ([address] [address] VIR Platelet mean volume (Bld) [Entitic vol] 7.3 fL Normal 7-12 [facility] Comment on above: Performed By: #### C BCA ####[facility] ([address] [address] VIR Platelets (Bld) [#/Vol] 204 10*3/uL Normal 150-450 [facility] Comment on above: Performed By: #### C BCA ####[facility] ([address] [address] VIR RBC COUNT 3.34 X10E12/L Low 3.8-5.2 [facility] Comment on above: Performed By: #### C BCA ####[facility] ([address] [address] VIR WBC (Bld) [#/Vol] 13.1 10*3/uL High 4-11 [facility] Comment on above: Performed By: #### C BCA ####[facility] ([address] [address] VIR CBC auto differentialon 10-16 Differential cell count method Nom (Bld) CELLAVISION DIFFERENTIAL [facility] Eosinophils (Bld) [#/Vol] 0.2 10*3/uL 0.0 - 0.4 10*3/uL [facility] Eosinophils/100 WBC (Bld) 2 % [facility] Erythrocyte distribution width (RBC) [Ratio] 13.5 % 11.5 - 15 % [facility] Hematocrit (Bld) [Volume fraction] 30.1 % Low 35 - 47 % [facility] Hemoglobin (Bld) [Mass/Vol] 10.1 g/dL Low 11.7 - 15.5 g/dL [facility] Interpretation and review of laboratory results Abnormal [facility] Lymphocytes (Bld) [#/Vol] 1.5 10*3/uL 1.0 - 3.5 10*3/uL [facility] MCH (RBC) [Entitic mass] 30.3 pg 27 - 34 pg [facility] MCHC (RBC) [Mass/Vol] 33.6 g/dL 32 - 3 6 g/dL [facility] MCV (RBC) [Entitic vol] 90 fL 80 - 100 fL [facility] Monocytes (Bld) [#/Vol] 1.5 10*3/uL High 0.0 - 0.9 10*3/uL [facility] Monocytes/100 WBC (Bld) 12 % [facility] Neutrophils (Bld) [#/Vol] 9.8 10*3/uL High 1.5 - 6.6 10*3/uL [facility] Neutrophils/100 WBC (Bld) 75 % [facility] Platelet mean volume (Bld) [Entitic vol] 7.3 fL 7 - 12 fL [facility] Platelets (Bld) [#/Vol] 204 10*3/uL [facility] RBC (Bld) [#/Vol] 3.34 10*6/uL [facility] Variant lymphocytes/100 WBC (Bld) 11 % [facility] Variant lymphocytes/100 WBC (Bld) 1 % [facility] WBC LM Ql (Sput) 13.1 High [facility] COMPREHENSIVE METABOLIC PANE José Luis 11-08-2024 Albumin [Mass/Vol] 3.3 g/dL Normal 3.2-5.[address] [facility] Comment on above: Performed By: #### C MP ####[facility] ([address] [place] [address] VIR ALP [Catalytic activity/Vol] 84 U/L Normal 39-130 [facility] Comment on above: Performed By: #### C MP ####[facility] ([address] [place] [address] VIR ALT [Catalytic activity/Vol] 14 U/L Normal <=31 [facility] Comment on above: Performed By: #### C MP ####[facility] ([address] [place] [address] VIR Anion gap [Moles/Vol] 9 mmol/L Normal 5-15 [facility] Comment on above: Performed By: #### C MP ####[facility] ([address] [place] [address] VIR AST [Catalytic activity/Vol] 26 U/L Normal <=41 [facility] Comment on above: Performed By: #### C MP ####[facility] ([address] [place] [address] VIR Bilirubin [Mass/Vol] 0.6 mg/dL Normal 0.3-1.2 [facility] Comment on above: Performed By: #### C MP ####[facility] ([address] [place] [address] VIR Calcium [Mass/Vol] 8.7 mg/dL Normal 8.5-10.[address] [facility] Comment on above: Performed By: #### C MP ####[facility] ([address] [place] [address] VIR Chloride [Moles/Vol] 101 mmol/L Normal 98-109 [facility] Comment on above: Performed By: #### C MP ####[facility] ([address] [place] [address] VIR CO2 [Moles/Vol] 22 mmol/L Normal 22-32 [facility] Comment on above: Performed By: #### C MP ####[facility] ([address] [place] [address] VIR Creatinine [Mass/Vol] 2.67 mg/dL High 0.40-1.00 [facility] Comment on above: Result Comment: METH OD TRACEABLE TO IDMS STANDARD Performed By: #### C MP ####[facility] ([address] [place] [address] VIR GFR/1.73 sq M.predicted among non-blacks MDRD (S/P/Bld) [Vol rate/Area] 17 mL/min/{1.73_m2} Low >=60 [facility] Comment on above: Result Comment: eGFR not reported due to non-numeric value for Creatinine.Reported eGFR is based on theCKD-EPI 1 equation that doesnot use a race coefficient. Performed By: #### C MP ####[facility] ([address] [place] [address] VIR Glucose [Mass/Vol] 118 mg/dL High 65-[address] [facility] Comment on above: Performed By: #### C MP ####[facility] ([address] [place] [address] VIR Potassium [Moles/Vol] 5.5 mmol/L High 3.5-5.0 [facility] Comment on above: Performed By: #### C MP ####[facility] ([address] [place] [address] VIR Protein [Mass/Vol] 7.2 g/dL Normal 6.0-8.[address] [facility] Comment on above: Performed By: #### C MP ####[facility])[address] [place] [address] [place] [address] VIR Sodium [Moles/Vol] 132 mmol/L Low 134-[address] [facility] Comment on above: Performed By: #### C MP ####[facility] ([facility])[address] [place] [address] [place] [address] VIR Urea nitrogen [Mass/Vol] 81 mg/dL High 5-27 [facility] Comment on above: Performed By: #### C MP ####[facility] ([address] [place] [address] VIR Comprehensive metabolic pane josé luis 11-08-2024 Albumin [Mass/Vol] 3.3 g/dL 3.2 - 5.3 g/dL [facility] ALP [Catalytic activity/Vol] 84 U/L 39 - 130 U/L [facility] ALT No additional P-5'-P [Catalytic activity/Vol] 14 U/L NINF - 31 U/L [facility] Anion gap [Moles/Vol] 9 mmol/L 5 - 15 mmol/L [facility] AST [Catalytic activity/Vol] 26 U/L NINF - 41 U/L [facility] Bilirubin [Mass/Vol] 0.6 mg/dL 0.3 - 1 .2 mg/dL [facility] Calcium [Mass/Vol] 8.7 mg/dL 8.5 - 10. 5 mg/dL [facility] Chloride [Moles/Vol] 101 mmol/L 98 - 10 9 mmol/L [facility] CO2 [Moles/Vol] 22 mmol/L 22 - 32 mmol/L [facility] Creatinine [Mass/Vol] 2.67 mg/dL High 0.40 - 1.00 mg/dL [facility] EGFR Non-Race Dependent 17 Low - PINF [facility] Glucose [Mass/Vol] 118 mg/dL High 65 - 99 mg/dL [facility] Potassium [Moles/Vol] 5.5 mmol/L High 3.5 - 5.0 mmol/L [facility] Protein [Mass/Vol] 7.2 g/dL 6.0 - 8.0 g/dL [facility] Sodium [Moles/Vol] 132 mmol/L Low 134 - 146 mmol/L [facility] Urea nitrogen [Mass/Vol] 81 mg/dL High 5 - 27 mg/dL [facility] ERYTHROCYTE SEDIMENTATION RA TE (ESR)on 11-08-2024 ESR, ERYTHROCYTE SEDIMENTATION RATE 89 mm/h High 0-30 [facility] Comment on above: Performed By: #### E SR ####[facility] (TTH)[address] [place] [address] VIR Erythrocyte Sedimentation Ra te (ESR)on 11-08-2024 ESR (Bld) [Velocity] 89 mm/h High 0 - 30 mm/h [facility] Interpretation and review of laboratory results Abnormal [facility] LACTATE W/ REFLEXon 11-09-19 LACTATE W/REFLEX 1.2 mmol/L Normal 0.4-2.0 [facility] Comment on above: Order Comment: If la ctate is normal x2, may discontinue.Result did not trigger repeat Lactate,re-order if needed. Performed By: #### L ACTS ####[facility] ([address] [address] VIR LACTATE W/REFLEX 0.9 mmol/L Normal 0.4-2.0 [facility] Comment on above: Order Comment: Resul t did not trigger repeat Lactate,re-order if needed. Performed By: #### L ACTS ####[facility] ([address] [address] VIR Lactate w/ Reflexon 11-09-19 Interpretation and review of laboratory results Normal [facility] Lactate (P katie) [Moles/Vol] 1.2 mmol/L 0.4 - 2.0 mmol/L [facility] Interpretation and review of laboratory results Normal [facility] Lactate (P katie) [Moles/Vol] 0.9 mmol/L 0.4 - 2.0 mmol/L [facility] Light Blue Topon 11-08-2024 Extra Tube Auto Resulted [facility] MAGNESIUMon 11-08-2024 Magnesium [Mass/Vol] 2.9 mg/dL High 1.8-2.6 [facility] Comment on above: Performed By: #### M G ####[facility] ([address] [address] VIR Magnesiumon 11-08-2024 Magnesium [Mass/Vol] 2.9 mg/dL High 1.8 - 2 .6 mg/dL [facility] No Panel Informationon 11-08 Interpretation and review of laboratory results Abnormal [facility] POTASSIUMon 11-08-2024 Potassium [Moles/Vol] 5.3 mmol/L High 3.5-5.0 [facility] Comment on above: Performed By: #### K ####[address] [address] VIR PROCALCITONINon 11-08-2024 PROCALCITONIN 0.27 ng/mL High <0.05 [facility] Comment on above: Order Comment: <0.50 ng/mL - Low risk of severe sepsis and/or septic shock.<2.00 ng/mL - Recommend retesting within 6-24 hours.>2.00 ng/mL - High risk of sepsis and/or septic shock. Performed By: #### P DAVID ####[address] [address] VIR PST TOPon 11-08-2024 Extra Tube Auto Resulted [facility] Potassiumon 11-08-2024 Interpretation and review of laboratory results Abnormal [facility] Potassium [Moles/Vol] 5.3 mmol/L High 3.5 - 5.0 mmol/L [facility] Procalcitoninon 11-08-2024 Interpretation and review of laboratory results Abnormal [facility] Procalcitonin IA [Mass/Vol] 0.27 ng/mL High NINF - 0.05 ng/mL [facility] SUPERFICIAL WOUND CULTUREon 11-08-2024 SUPERFICIAL WOUND CULTURE Susceptible [facility] Comment on above: Performed By: #### W CSUP ####[facility] ([facility])[address] [facility] [address] [place] [address] VIR XR FOOT LT MIN 3 VWSon 11-08 XR FOOT LT MIN 3 VWS Normal [facility] XR FOOT RT MIN 3 VWSon 11-08 XR FOOT RT MIN 3 VWS Normal [facility] XR Foot - left 3 or 4 Viewso n 11-08-20[facility] (narrative) [facility] XR Foot - left 3 or 4 ViewsO rdered By: Randolph Ramirez on 11-08-2024 [facility] Work Phone: XR Foot - right 3 Viewson SECTRAPACS [facility] Radiology Study observation (narrative) [facility] BEDSIDE GLUCOSEon 10-27-2024 Glucose [Mass/Vol] 257 mg/dL High 65-[address] [facility] Comment on above: Performed By: #### B EDG ####[facility] ([address] [place] [address] VIR Glucose [Mass/Vol] 170 mg/dL High 65-[address] [facility] Comment on above: Performed By: #### B EDG ####[facility] ([address] [place] [address] VIR Glucose [Mass/Vol] 92 mg/dL Normal 65-[address] [facility] Comment on above: Performed By: #### B EDG ####[facility] ([address] [place] [address] VIR C-REACTIVE PROTEINon 05-13-2 025 C REACTIVE PROTEIN 11.9 mg/dL High <=0.[address] [facility] Comment on above: Performed By: #### C RP ####[facility] ([address] [address] VIR CBC WITH AUTO DIFFERENTIALon 10-27-2024 CELLAVISION BASOPHILS ABSOLUTE COUNT (10*3/UL) BY MANUAL COUNT 0.3 10*3/uL High 0.0-0.2 [facility] Comment on above: Result Comment: This is an appended report. These results have been appended to a previously preliminary verified report. Performed By: #### C BCA ####[facility] ([address] [address] VIR CELLAVISION BASOPHILS RELATIVE PERCENT BY MANUAL COUNT 3 % Normal [facility] Comment on above: Result Comment: This is an appended report. These results have been appended to a previously preliminary verified report. Performed By: #### C BCA ####[facility] ([address] [address] VIR CELLAVISION DIFFERENTIAL TYPE CELLAVISION DIFFERENTIAL Normal [facility] Comment on above: Result Comment: This is an appended report. These results have been appended to a previously preliminary verified report. Performed By: #### C BCA ####[facility] ([address] [address] VIR CELLAVISION EOSINOPHILS ABSOLUTE COUNT (10*3/UL) BY MANUAL COUNT 0.1 10*3/uL Normal 0.0-0.4 [facility] Comment on above: Result Comment: This is an appended report. These results have been appended to a previously preliminary verified report. Performed By: #### C BCA ####[address] [address] VIR CELLAVISION EOSINOPHILS PERCENT BY MANUAL COUNT 1 % Normal [facility] Comment on above: Result Comment: This is an appended report. These results have been appended to a previously preliminary verified report. Performed By: #### C BCA ####[facility] ([facility])[address] [place] [address] VIR CELLAVISION LYMPHOCYTES ABSOLUTE COUNT (10*3/UL) BY MANUAL COUNT 2.3 10*3/uL Normal 1.0-3.5 [facility] Comment on above: Result Comment: This is an appended report. These results have been appended to a previously preliminary verified report. Performed By: #### C BCA ####[facility] ([facility])[address] [place] [address] VIR CELLAVISION LYMPHOCYTES RELATIVE PERCENT BY MANUAL COUNT 20 % Normal [facility] Comment on above: Result Comment: This is an appended report. These results have been appended to a previously preliminary verified report. Performed By: #### C BCA ####[facility] ([address] [address] VIR CELLAVISION MONOCYTES ABSOLUTE COUNT (10*3/UL) IN BLOOD BY MANUAL COUNT 1.1 10*3/uL High 0.0-0.9 [facility] Comment on above: Result Comment: This is an appended report. These results have been appended to a previously preliminary verified report. Performed By: #### C BCA ####[facility] ([address] [address] VIR CELLAVISION MONOCYTES RELATIVE PERCENT BY MANUAL COUNT 10 % Normal [facility] Comment on above: Result Comment: This is an appended report. These results have been appended to a previously preliminary verified report. Performed By: #### C BCA ####[facility] ([address] [address] VIR CELLAVISION NEUTROPHILS ABSOLUTE COUNT BY MANUAL COUNT 7.7 10*3/uL High 1.5-6.6 [facility] Comment on above: Result Comment: This is an appended report. These results have been appended to a previously preliminary verified report. Performed By: #### C BCA ####[facility] ([address] [address] VIR CELLAVISION NEUTROPHILS RELATIVE PERCENT BY MANUAL COUNT 67 % Normal [facility] Comment on above: Result Comment: This is an appended report. These results have been appended to a previously preliminary verified report. Performed By: #### C BCA ####[facility] ([address] [address] VIR Erythrocyte distribution width (RBC) [Ratio] 13.5 % Normal 11.5-15 [facility] Comment on above: Performed By: #### C BCA ####[facility] ([address] [address] VIR Hematocrit (Bld) [Volume fraction] 30.3 % Low 35-47 [facility] Comment on above: Performed By: #### C BCA ####[facility] ([address] [address] VIR Hemoglobin (Bld) [Mass/Vol] 10.2 g/dL Low 11.7-15.5 [facility] Comment on above: Performed By: #### C BCA ####[facility] ([address] [address] VIR MCH (RBC) [Entitic mass] 30.0 pg Normal 27-34 [facility] Comment on above: Performed By: #### C BCA ####[facility] ([address] [address] VIR MCHC (RBC) [Mass/Vol] 33.5 g/dL Normal 32-36 [facility] Comment on above: Performed By: #### C BCA ####[facility] ([address] [address] VIR MCV (RBC) [Entitic vol] 90 fL Normal 80-100 [facility] Comment on above: Performed By: #### C BCA ####[facility] ([facility])[address] [place], [place] [address]E.[place] [address] VIR Platelet mean volume (Bld) [Entitic vol] 7.7 fL Normal 7-12 [facility] Comment on above: Performed By: #### C BCA ####[facility] ([address] [place] [address] VIR Platelets (Bld) [#/Vol] 384 10*3/uL Normal 150-450 [facility] Comment on above: Performed By: #### C BCA ####[facility] ([address] [place] [address] VIR RBC COUNT 3.39 X10E12/L Low 3.8-5.2 [facility] Comment on above: Performed By: #### C BCA ####[facility] ([address] [place] [address] VIR WBC (Bld) [#/Vol] 11.6 10*3/uL High 4-11 [facility] Comment on above: Performed By: #### C BCA ####[facility] ([address] [place] [address] VIR COMPREHENSIVE METABOLIC PANE José Luis 10-27-2024 Albumin [Mass/Vol] 2.9 g/dL Low 3.2-5.[address] [facility] Comment on above: Performed By: #### C MP ####[facility] ([address] [place] [address] VIR ALP [Catalytic activity/Vol] 82 U/L Normal 39-130 [facility] Comment on above: Performed By: #### C MP ####[facility] ([address] [place] [address] VIR ALT [Catalytic activity/Vol] 9 U/L Normal <=31 [facility] Comment on above: Performed By: #### C MP ####[facility] ([address] [place] [address] VIR Anion gap [Moles/Vol] 11 mmol/L Normal 5-15 [facility] [place] Comment on above: Performed By: #### C MP ####[facility] ([address] [place] [address] VIR AST [Catalytic activity/Vol] 10 U/L Normal <=41 [facility] Comment on above: Performed By: #### C MP ####[facility] ([address] [place] [address] VIR Bilirubin [Mass/Vol] 0.6 mg/dL Normal 0.3-1.2 [facility] Comment on above: Performed By: #### C MP ####[facility] ([address] [place] [address] VIR Calcium [Mass/Vol] 8.9 mg/dL Normal 8.5-10.[address] [facility] Comment on above: Performed By: #### C MP ####[facility] ([address] [place] [address] VIR Chloride [Moles/Vol] 105 mmol/L Normal 98-109 [facility] Comment on above: Performed By: #### C MP ####[facility] ([address] [place] [address] VIR CO2 [Moles/Vol] 22 mmol/L Normal 22-32 [facility] Comment on above: Performed By: #### C MP ####[facility] ([address] [place] [address] VIR Creatinine [Mass/Vol] 1.76 mg/dL High 0.40-1.00 [facility] [place] Comment on above: Result Comment: METH OD TRACEABLE TO IDMS STANDARD Performed By: #### C MP ####[facility] ([address] [place] [address] VIR GFR/1.73 sq M.predicted among non-blacks MDRD (S/P/Bld) [Vol rate/Area] 28 mL/min/{1.73_m2} Low >=60 [facility] Comment on above: Result Comment: eGFR not reported due to non-numeric value for Creatinine.Reported eGFR is based on theCKD-EPI 2020 equation that doesnot use a race coefficient. Performed By: #### C MP ####[facility] ([address] [place] [address] VIR Glucose [Mass/Vol] 79 mg/dL Normal 65-[address] [facility] Comment on above: Performed By: #### C MP ####[facility] ([address] [place] [address] VIR Potassium [Moles/Vol] 4.1 mmol/L Normal 3.5-5.0 [facility] [place] Comment on above: Performed By: #### C MP ####[facility] ([address] [place] [address] VIR Protein [Mass/Vol] 6.5 g/dL Normal 6.0-8.[address] [facility] Comment on above: Performed By: #### C MP ####[facility] ([address] [place] [address] VIR Sodium [Moles/Vol] 138 mmol/L Normal 134-[address] [facility] Comment on above: Performed By: #### C MP ####[facility] ([address] [place] [address] VIR Urea nitrogen [Mass/Vol] 57 mg/dL High 5-27 [facility] Comment on above: Performed By: #### C MP ####[facility] ([address] [place] [address] VIR MAGNESIUMon 10-27-2024 Magnesium [Mass/Vol] 2.8 mg/dL High 1.8-2.6 [facility] Comment on above: Performed By: #### M G ####[facility] ([address] [place] [address] VIR BEDSIDE GLUCOSEon 10-26-2024 Glucose [Mass/Vol] 285 mg/dL High 65-[address] [facility] Comment on above: Performed By: #### B EDG ####[facility] ([address] [place] [address] VIR Glucose [Mass/Vol] 298 mg/dL High [address] [place] [address] Comment on above: Performed By: #### B EDG ####[facility] ([address] [place] [address] VIR Glucose [Mass/Vol] 237 mg/dL High [address] [place] [address] Comment on above: Performed By: #### B EDG ####[facility] ([address] [place] [address] VIR Glucose [Mass/Vol] 151 mg/dL High [address] [place] [address] Comment on above: Performed By: #### B EDG ####[facility] ([address] [place] [address] VIR C-REACTIVE PROTEINon 025 C REACTIVE PROTEIN 12.0 mg/dL High <=0.[address] [facility] Comment on above: Performed By: #### C RP ####[facility] ([address] [place] [address] VIR CBC WITH AUTO DIFFERENTIALon 10-26-2024 Basophilic stippling LM Ql (Bld) 1+ Normal [facility] Comment on above: Result Comment: This is an appended report. These results have been appended to a previously preliminary verified report. Performed By: #### C BCA ####[facility] ([facility])[address] [place] [address] VIR BASOPHILS ABSOLUTE COUNT (10*3/UL) BY AUTOMATED COUNT 0.1 10*3/uL Normal 0.0-0.2 [facility] Comment on above: Result Comment: This is an appended report. These results have been appended to a previously preliminary verified report. Performed By: #### C BCA ####[facility] ([address] [address] VIR BASOPHILS RELATIVE PERCENT BY AUTOMATED COUNT 1.0 % Normal [facility] Comment on above: Result Comment: This is an appended report. These results have been appended to a previously preliminary verified report. Performed By: #### C BCA ####[facility] ([address] [address] VIR CELLAVISION DIFFERENTIAL TYPE AUTOMATED DIFFERENTIAL Normal [facility] Comment on above: Result Comment: This is an appended report. These results have been appended to a previously preliminary verified report. Performed By: #### C BCA ####[facility] ([address] [address] VIR CELLAVISION POLYCHROMASIA IN BLOOD BY LIGHT MICROSCOPY 1+ Normal [facility] Comment on above: Result Comment: This is an appended report. These results have been appended to a previously preliminary verified report. Performed By: #### C BCA ####[facility] ([address] [address] VIR Eosinophils (Bld) [#/Vol] 0.4 10*3/uL Normal 0.0-0.4 [facility] Comment on above: Result Comment: This is an appended report. These results have been appended to a previously preliminary verified report. Performed By: #### C BCA ####[facility] ([address] [address] VIR EOSINOPHILS RELATIVE PERCENT BY AUTOMATED COUNT 3.3 % Normal [facility] Comment on above: Result Comment: This is an appended report. These results have been appended to a previously preliminary verified report. Performed By: #### C BCA ####[facility] ([address] [address] VIR Erythrocyte distribution width (RBC) [Ratio] 13.3 % Normal 11.5-15 [facility] Comment on above: Result Comment: This is a corrected result. Previous result was 13.7 % on 10/26/2024 at 0619 EDT Performed By: #### C BCA ####[facility] ([address] [address] VIR Hematocrit (Bld) [Volume fraction] 31.5 % Low 35-47 [facility] Comment on above: Performed By: #### C BCA ####[facility] ([address] [address] VIR Hemoglobin (Bld) [Mass/Vol] 10.5 g/dL Low 11.7-15.5 [facility] Comment on above: Performed By: #### C BCA ####[facility] ([address] [address] VIR LYMPHOCYTES ABSOLUTE COUNT (10*3/UL) BY AUTOMATED COUNT 2.6 10*3/uL Normal 1.0-3.5 [facility] Comment on above: Result Comment: This is an appended report. These results have been appended to a previously preliminary verified report. Performed By: #### C BCA ####[facility] ([address] [address] VIR LYMPHOCYTES RELATIVE PERCENT BY AUTOMATED COUNT 22.0 % Normal [facility] Comment on above: Result Comment: This is an appended report. These results have been appended to a previously preliminary verified report. Performed By: #### C BCA ####[facility] ([address] [address] VIR MCH (RBC) [Entitic mass] 30.3 pg Normal 27-34 [facility] Comment on above: Performed By: #### C BCA ####[facility] ([address] [address] VIR MCHC (RBC) [Mass/Vol] 33.3 g/dL Normal 32-36 [facility] Comment on above: Result Comment: This is a corrected result. Previous result was 33.4 g/dL on 10/26/2024 at 0619 EDT Performed By: #### C BCA ####[facility] ([address] [address] VIR MCV (RBC) [Entitic vol] 91 fL Normal 80-100 [facility] Comment on above: Performed By: #### C BCA ####[facility] ([address] [address] VIR MONOCYTES ABSOLUTE COUNT (10*3/UL) BY AUTOMATED COUNT 1.7 10*3/uL High 0.0-0.9 [facility] Comment on above: Result Comment: This is an appended report. These results have been appended to a previously preliminary verified report. Performed By: #### C BCA ####[facility] ([address] [address] VIR MONOCYTES RELATIVE PERCENT BY AUTOMATED COUNT 14.4 % Normal [facility] Comment on above: Result Comment: This is an appended report. These results have been appended to a previously preliminary verified report. Performed By: #### C BCA ####[facility] ([address] [address] VIR NEUTROPHILS ABSOLUTE COUNT BY AUTOMATED COUNT 7.0 10*3/uL High 1.5-6.6 [facility] Comment on above: Result Comment: This is an appended report. These results have been appended to a previously preliminary verified report. Performed By: #### C BCA ####[facility] ([facility])[address] [place] [address] VIR NEUTROPHILS RELATIVE PERCENT BY AUTOMATED COUNT 59.3 % Normal [facility] Comment on above: Result Comment: This is an appended report. These results have been appended to a previously preliminary verified report. Performed By: #### C BCA ####[facility] ([facility])[address] [place], [place] [address]E.[place] [address] VIR Platelet mean volume (Bld) [Entitic vol] 8.1 fL Normal 7-12 [facility] Comment on above: Result Comment: This is a corrected result. Previous result was 8.0 fL on 10/26/2024 at 0619 EDT Performed By: #### C BCA ####[facility] ([facility])[address] [place] [address].[place] [address] VIR Platelets (Bld) [#/Vol] 368 10*3/uL Normal 150-450 [facility] Comment on above: Result Comment: This is a corrected result. Previous result was 378 X10E9/L on 10/26/2024 at 0619 EDT Performed By: #### C BCA ####[facility] ([facility])[address] [place] [address].[place] [address] VIR RBC COUNT 3.46 X10E12/L Low 3.8-5.2 [facility] Comment on above: Result Comment: This is a corrected result. Previous result was 3.48 X10E12/L on 10/26/2024 at 0619 EDT Performed By: #### C BCA ####[facility] ([facility])[address] [place] [address] VIR WBC (Bld) [#/Vol] 11.8 10*3/uL High 4-11 [facility] Comment on above: Result Comment: This is a corrected result. Previous result was 11.6 x10E9/L on 10/26/2024 at 0619 EDT Performed By: #### C BCA ####[facility] ([place] [address] [place] [address] VIR COMPREHENSIVE METABOLIC PANE José Luis 10-26-2024 Albumin [Mass/Vol] 3.0 g/dL Low 3.2-5.[address] [facility] Comment on above: Performed By: #### C MP ####[facility] ([place] [address] [place] [address] VIR ALP [Catalytic activity/Vol] 81 U/L Normal 39-130 [facility] Comment on above: Performed By: #### C MP ####[facility] ([place] [address] [place] [address] VIR ALT [Catalytic activity/Vol] 9 U/L Normal <=31 [facility] Comment on above: Performed By: #### C MP ####[facility] ([place] [address] [place] [address] VIR Anion gap [Moles/Vol] 13 mmol/L Normal 5-15 [facility] [place] Comment on above: Performed By: #### C MP ####[facility] ([address] [place] [address] VIR AST [Catalytic activity/Vol] 10 U/L Normal <=41 [facility] Comment on above: Performed By: #### C MP ####[facility] ([place] [address] [place] [address] VIR Bilirubin [Mass/Vol] 0.6 mg/dL Normal 0.3-1.2 [facility] Comment on above: Performed By: #### C MP ####[facility] ([place] [address] [place] [address] VIR Calcium [Mass/Vol] 8.9 mg/dL Normal 8.5-10.[address] [facility] Comment on above: Performed By: #### C MP ####[facility] ([place] [address] [place] [address] VIR Chloride [Moles/Vol] 102 mmol/L Normal 98-109 [facility] Comment on above: Performed By: #### C MP ####[facility] ([facility])[address] [place], [place] [address] [address] VIR CO2 [Moles/Vol] 22 mmol/L Normal 22-32 [facility] Comment on above: Performed By: #### C MP ####[facility] ([address] [place] [address] VIR Creatinine [Mass/Vol] 2.22 mg/dL High 0.40-1.00 [facility] [place] Comment on above: Result Comment: METH OD TRACEABLE TO IDMS STANDARD Performed By: #### C MP ####[facility] ([address] [place] [address] VIR GFR/1.73 sq M.predicted among non-blacks MDRD (S/P/Bld) [Vol rate/Area] 21 mL/min/{1.73_m2} Low >=60 [facility] Comment on above: Result Comment: eGFR not reported due to non-numeric value for Creatinine.Reported eGFR is based on theCKD-EPI 2020 equation that doesnot use a race coefficient. Performed By: #### C MP ####[facility] ([address] [place] [address] VIR Glucose [Mass/Vol] 124 mg/dL High 65-[address] [facility] Comment on above: Performed By: #### C MP ####[facility] ([address] [place] [address] VIR Potassium [Moles/Vol] 4.3 mmol/L Normal 3.5-5.0 [facility] [place] Comment on above: Performed By: #### C MP ####[facility] ([address] [place] [address] VIR Protein [Mass/Vol] 6.6 g/dL Normal 6.0-8.[address] [facility] Comment on above: Performed By: #### C MP ####[facility] ([address] [place] [address] VIR Sodium [Moles/Vol] 137 mmol/L Normal 134-[address] [facility] Comment on above: Performed By: #### C MP ####[facility] ([address] [place] [address] VIR Urea nitrogen [Mass/Vol] 64 mg/dL High 5-27 [facility] Comment on above: Performed By: #### C MP ####[facility] ([address] [place] [address] VIR MAGNESIUMon 10-26-2024 Magnesium [Mass/Vol] 3.0 mg/dL High 1.8-2.6 [facility] Comment on above: Performed By: #### M G ####[facility] ([address] [place] [address] VIR URINALYSISon 10-26-2024 Bilirubin Ql (U) Negative Normal Negative [facility] Comment on above: Performed By: #### U A ####[facility] ([address] [place] [address] VIR BLOOD/HGB Negative Normal Negative [facility] Comment on above: Performed By: #### U A ####[facility] ([address] [place] [address] VIR Color (U) Yellow Normal Yellow, Colorless [facility] Comment on above: Performed By: #### U A ####[facility] ([address] [place] [address] VIR Glucose Ql (U) Negative Normal Negative, 250 mg/dL, >1000 mg/dL [facility] Comment on above: Performed By: #### U A ####[facility] ([facility])[address] [place] [address].[place] [address] VIR Ketones Ql (U) Negative Normal Negative [facility] Comment on above: Performed By: #### U A ####[facility] ([facility])[address] [place] [address] [place] [address] VIR Leukocyte esterase Test strip Ql (U) Negative Normal Negative [facility] Comment on above: Performed By: #### U A ####[facility] ([facility])[address] [place] [address].[place] [address] VIR Nitrite Ql (U) Negative Normal Negative [facility] Comment on above: Performed By: #### U A ####[facility] ([facility])[address] [place] [address].[place] [address] VIR PH,URINE 6.0 Normal 5.0-8.5 [facility] Comment on above: Performed By: #### U A ####[facility] ([facility])[address] [place] [address] VIR Protein Ql (U) Negative Normal Negative [facility] Comment on above: Performed By: #### U A ####[facility] ([facility])[address] [place] [address].[place] [address] VIR Specific gravity (U) [Rel density] 1.020 Normal 1.003-1.035 [facility] Comment on above: Performed By: #### U A ####[facility] ([facility])[address] [place] [address].[place] [address] VIR TURBIDITY Clear Normal Clear [facility] Comment on above: Performed By: #### U A ####[facility] ([facility])[address] [place] [address].[place] [address] VIR UROBILINOGEN 0.2 eu/dL Normal 0.2 eu/dL, 1.0 eu/dL [facility] Comment on above: Performed By: #### U A ####[facility] ([address] [place] [address] VIR BEDSIDE GLUCOSEon 10-25-2024 Glucose [Mass/Vol] 292 mg/dL High 65-[address] [facility] Comment on above: Performed By: #### B EDG ####[facility] ([address] [place] [address] VIR Glucose [Mass/Vol] 229 mg/dL High 65-[address] [facility] Comment on above: Performed By: #### B EDG ####[facility] ([address] [place] [address] VIR Glucose [Mass/Vol] 232 mg/dL High -[address] [place] [address] Comment on above: Performed By: #### B EDG ####[facility] ([address] [place] [address] VIR C-REACTIVE PROTEINon 025 C REACTIVE PROTEIN 2.7 mg/dL High <=0.[address] [facility] Comment on above: Performed By: #### C RP ####[facility] ([address] [place] [address] VIR CBC WITH AUTO DIFFERENTIALon 10-25-2024 BASOPHILS ABSOLUTE COUNT (10*3/UL) BY AUTOMATED COUNT 0.2 10*3/uL Normal 0.0-0.2 [facility] Comment on above: Performed By: #### C BCA ####[facility] ([address] [place] [address] VIR BASOPHILS RELATIVE PERCENT BY AUTOMATED COUNT 1.3 % Normal [facility] Comment on above: Performed By: #### C BCA ####[facility] ([address] [place] [address] VIR CELLAVISION DIFFERENTIAL TYPE AUTOMATED DIFFERENTIAL Normal [facility] Comment on above: Performed By: #### C BCA ####[facility] ([address] [place] [address] VIR Eosinophils (Bld) [#/Vol] 0.2 10*3/uL Normal 0.0-0.4 [facility] Comment on above: Performed By: #### C BCA ####[facility] ([address] [place] [address] VIR EOSINOPHILS RELATIVE PERCENT BY AUTOMATED COUNT 2.0 % Normal [facility] Comment on above: Performed By: #### C BCA ####[facility] ([address] [address] VIR Erythrocyte distribution width (RBC) [Ratio] 13.6 % Normal 11.5-15 [facility] Comment on above: Performed By: #### C BCA ####[facility] ([address] [address] VIR Hematocrit (Bld) [Volume fraction] 32.0 % Low 35-47 [facility] Comment on above: Performed By: #### C BCA ####[facility] ([address] [address] VIR Hemoglobin (Bld) [Mass/Vol] 10.7 g/dL Low 11.7-15.5 [facility] Comment on above: Performed By: #### C BCA ####[facility] ([address] [address] VIR LYMPHOCYTES ABSOLUTE COUNT (10*3/UL) BY AUTOMATED COUNT 2.3 10*3/uL Normal 1.0-3.5 [facility] Comment on above: Performed By: #### C BCA ####[facility] ([address] [address] VIR LYMPHOCYTES RELATIVE PERCENT BY AUTOMATED COUNT 19.8 % Normal [facility] Comment on above: Performed By: #### C BCA ####[facility] ([address] [address] VIR MCH (RBC) [Entitic mass] 30.1 pg Normal 27-34 [facility] Comment on above: Performed By: #### C BCA ####[facility] ([address] [place] [address] VIR MCHC (RBC) [Mass/Vol] 33.4 g/dL Normal 32-36 [facility] Comment on above: Performed By: #### C BCA ####[facility] ([address] [address] VIR MCV (RBC) [Entitic vol] 90 fL Normal 80-100 [facility] Comment on above: Performed By: #### C BCA ####[facility] ([address] [address] VIR MONOCYTES ABSOLUTE COUNT (10*3/UL) BY AUTOMATED COUNT 1.5 10*3/uL High 0.0-0.9 [facility] Comment on above: Performed By: #### C BCA ####[facility] ([address] [address] VIR MONOCYTES RELATIVE PERCENT BY AUTOMATED COUNT 12.7 % Normal [facility] Comment on above: Performed By: #### C BCA ####[facility] ([address] [place] [address] VIR NEUTROPHILS ABSOLUTE COUNT BY AUTOMATED COUNT 7.6 10*3/uL High 1.5-6.6 [facility] Comment on above: Performed By: #### C BCA ####[facility] ([address] [address] VIR NEUTROPHILS RELATIVE PERCENT BY AUTOMATED COUNT 64.2 % Normal [facility] Comment on above: Performed By: #### C BCA ####[facility] ([address] [place] [address] VIR Platelet mean volume (Bld) [Entitic vol] 8.1 fL Normal 7-12 [facility] Comment on above: Performed By: #### C BCA ####[facility] ([facility])[address] [place] [address] [place] [address] VIR Platelets (Bld) [#/Vol] 371 10*3/uL Normal 150-450 [facility] Comment on above: Performed By: #### C BCA ####[facility] ([address] [place] [address] VIR RBC COUNT 3.56 X10E12/L Low 3.8-5.2 [facility] Comment on above: Performed By: #### C BCA ####[facility] ([address] [place] [address] VIR WBC (Bld) [#/Vol] 11.9 10*3/uL High 4-11 [facility] Comment on above: Performed By: #### C BCA ####[facility] ([address] [place] [address] VIR COMPREHENSIVE METABOLIC PANE José Luis 10-25-2024 Albumin [Mass/Vol] 3.4 g/dL Normal 3.2-5.[address] [facility] Comment on above: Performed By: #### C MP ####[facility] ([address] [place] [address] VIR ALP [Catalytic activity/Vol] 73 U/L Normal 39-130 [facility] Comment on above: Performed By: #### C MP ####[facility] ([address] [place] [address] VIR ALT [Catalytic activity/Vol] 24 U/L Normal <=31 [facility] Comment on above: Performed By: #### C MP ####[facility] ([address] [facility] [place] [address] VIR Anion gap [Moles/Vol] 6 mmol/L Normal 5-15 [facility] [place] Comment on above: Performed By: #### C MP ####[facility] ([place] [address] [place] [address] VIR AST [Catalytic activity/Vol] 27 U/L Normal <=41 [facility] Comment on above: Performed By: #### C MP ####[facility] ([place] [address] [place] [address] VIR Bilirubin [Mass/Vol] 2.5 mg/dL High 0.3-1.2 [facility] Comment on above: Performed By: #### C MP ####[facility] ([place] [address] [place] [address] VIR Calcium [Mass/Vol] 8.4 mg/dL Low 8.5-10.[address] [facility] Comment on above: Performed By: #### C MP ####[facility] ([place] [address] [place] [address] VIR Chloride [Moles/Vol] 108 mmol/L Normal 98-109 [facility] Comment on above: Performed By: #### C MP ####[facility] ([place] [address] [place] [address] VIR CO2 [Moles/Vol] 23 mmol/L Normal 22-32 [facility] Comment on above: Performed By: #### C MP ####[facility] ([place] [address] [place] [address] VIR Creatinine [Mass/Vol] 0.84 mg/dL Normal 0.40-1.00 [facility] [place] Comment on above: Result Comment: METH OD TRACEABLE TO IDMS STANDARD Performed By: #### C MP ####[facility] ([place] [address] [place] [address] VIR GFR/1.73 sq M.predicted among non-blacks MDRD (S/P/Bld) [Vol rate/Area] 69 mL/min/{1.73_m2} Normal >=60 [facility] Comment on above: Result Comment: eGFR not reported due to non-numeric value for Creatinine.Reported eGFR is based on theCKD-EPI 2020 equation that doesnot use a race coefficient. Performed By: #### C MP ####[facility] ([address] [place] [address] VIR Glucose [Mass/Vol] 109 mg/dL High 65-[address] [facility] Comment on above: Performed By: #### C MP ####[facility] ([address] [place] [address] VIR Potassium [Moles/Vol] 3.6 mmol/L Normal 3.5-5.0 [facility] [place] Comment on above: Performed By: #### C MP ####[facility] ([address] [place] [address] VIR Protein [Mass/Vol] 6.1 g/dL Normal 6.0-8.[address] [facility] Comment on above: Performed By: #### C MP ####[facility] ([address] [place] [address] VIR Sodium [Moles/Vol] 137 mmol/L Normal 134-[address] [facility] Comment on above: Performed By: #### C MP ####[facility] ([address] [place] [address] VIR Urea nitrogen [Mass/Vol] 27 mg/dL Normal 5-27 [facility] Comment on above: Performed By: #### C MP ####[facility] ([address] [place] [address] VIR MAGNESIUMon 10-25-2024 Magnesium [Mass/Vol] 3.5 mg/dL High 1.8-2.6 [facility] Comment on above: Performed By: #### M G ####[facility] ([address] [address] VIR Magnesium [Mass/Vol] 1.6 mg/dL Low 1.8-2.6 [facility] Comment on above: Performed By: #### M G ####[facility] ([address] [address] VIR BEDSIDE GLUCOSEon 10-24-2024 Glucose [Mass/Vol] 233 mg/dL High 65-[address] [facility] Comment on above: Performed By: #### B EDG ####[facility] ([address] [address] VIR Glucose [Mass/Vol] 226 mg/dL High 65-[address] [facility] Comment on above: Performed By: #### B EDG ####[facility] ([address] [address] VIR Glucose [Mass/Vol] 305 mg/dL High 65-[address] [facility] Comment on above: Performed By: #### B EDG ####[facility] ([address] [address] VIR C-REACTIVE PROTEINon 025 C REACTIVE PROTEIN 6.8 mg/dL High <=0.[address] [facility] Comment on above: Performed By: #### C RP ####[facility] ([address] [address] VIR CBC WITH AUTO DIFFERENTIALon 10-24-2024 CELLAVISION BASOPHILS ABSOLUTE COUNT (10*3/UL) BY MANUAL COUNT 0.1 10*3/uL Normal 0.0-0.2 [facility] Comment on above: Result Comment: This is an appended report. These results have been appended to a previously preliminary verified report. Performed By: #### C BCA ####[facility] ([facility])[address] [place] [address] VIR CELLAVISION BASOPHILS RELATIVE PERCENT BY MANUAL COUNT 1 % Normal [facility] Comment on above: Result Comment: This is an appended report. These results have been appended to a previously preliminary verified report. Performed By: #### C BCA ####[facility] ([address] [address] VIR CELLAVISION DIFFERENTIAL TYPE CELLAVISION DIFFERENTIAL Normal [facility] Comment on above: Result Comment: This is an appended report. These results have been appended to a previously preliminary verified report. Performed By: #### C BCA ####[facility] ([address] [address] VIR CELLAVISION EOSINOPHILS ABSOLUTE COUNT (10*3/UL) BY MANUAL COUNT 0.4 10*3/uL Normal 0.0-0.4 [facility] Comment on above: Result Comment: This is an appended report. These results have been appended to a previously preliminary verified report. Performed By: #### C BCA ####[facility] ([address] [address] VIR CELLAVISION EOSINOPHILS PERCENT BY MANUAL COUNT 3 % Normal [facility] Comment on above: Result Comment: This is an appended report. These results have been appended to a previously preliminary verified report. Performed By: #### C BCA ####[facility] ([address] [address] VIR CELLAVISION LYMPHOCYTES ABSOLUTE COUNT (10*3/UL) BY MANUAL COUNT 0.9 10*3/uL Low 1.0-3.5 [facility] Comment on above: Result Comment: This is an appended report. These results have been appended to a previously preliminary verified report. Performed By: #### C BCA ####[facility] ([address] [address] VIR CELLAVISION LYMPHOCYTES RELATIVE PERCENT BY MANUAL COUNT 7 % Normal [facility] Comment on above: Result Comment: This is an appended report. These results have been appended to a previously preliminary verified report. Performed By: #### C BCA ####[facility] ([facility])[address] [place] [address] VIR CELLAVISION MONOCYTES ABSOLUTE COUNT (10*3/UL) IN BLOOD BY MANUAL COUNT 1.8 10*3/uL High 0.0-0.9 [facility] Comment on above: Result Comment: This is an appended report. These results have been appended to a previously preliminary verified report. Performed By: #### C BCA ####[facility] ([address] [address] VIR CELLAVISION MONOCYTES RELATIVE PERCENT BY MANUAL COUNT 13 % Normal [facility] Comment on above: Result Comment: This is an appended report. These results have been appended to a previously preliminary verified report. Performed By: #### C BCA ####[facility] ([address] [address] VIR CELLAVISION NEUTROPHILS ABSOLUTE COUNT BY MANUAL COUNT 10.1 10*3/uL High 1.5-6.6 [facility] Comment on above: Result Comment: This is an appended report. These results have been appended to a previously preliminary verified report. Performed By: #### C BCA ####[facility] ([address] [address] VIR CELLAVISION NEUTROPHILS RELATIVE PERCENT BY MANUAL COUNT 76 % Normal [facility] Comment on above: Result Comment: This is an appended report. These results have been appended to a previously preliminary verified report. Performed By: #### C BCA ####[facility] ([address] [address] VIR Erythrocyte distribution width (RBC) [Ratio] 13.6 % Normal 11.5-15 [facility] Comment on above: Performed By: #### C BCA ####[facility] ([address] [address] VIR Hematocrit (Bld) [Volume fraction] 34.7 % Low 35-47 [facility] Comment on above: Performed By: #### C BCA ####[facility] ([address] [address] VIR Hemoglobin (Bld) [Mass/Vol] 11.4 g/dL Low 11.7-15.5 [facility] Comment on above: Performed By: #### C BCA ####[facility] ([address] [address] VIR MCH (RBC) [Entitic mass] 29.9 pg Normal 27-34 [facility] Comment on above: Performed By: #### C BCA ####[facility] ([address] [address] VIR MCHC (RBC) [Mass/Vol] 32.8 g/dL Normal 32-36 [facility] [place] Comment on above: Performed By: #### C BCA ####[facility] ([address] [address] VIR MCV (RBC) [Entitic vol] 91 fL Normal 80-100 [facility] Comment on above: Performed By: #### C BCA ####[facility] ([address] [address] VIR Platelet mean volume (Bld) [Entitic vol] 7.8 fL Normal 7-12 [facility] Comment on above: Performed By: #### C BCA ####[facility] ([address] [address] VIR Platelets (Bld) [#/Vol] 379 10*3/uL Normal 150-450 [facility] Comment on above: Performed By: #### C BCA ####[facility] ([facility])[address] [place], [place] [address] [place] [address] VIR RBC COUNT 3.81 X10E12/L Normal 3.8-5.2 [facility] Comment on above: Performed By: #### C BCA ####[facility] ([address] [place] [address] VIR WBC (Bld) [#/Vol] 13.2 10*3/uL High 4-11 [facility] Comment on above: Performed By: #### C BCA ####[facility] ([address] [place] [address] VIR COMPREHENSIVE METABOLIC PANE José Luis 10-24-2024 Albumin [Mass/Vol] 3.2 g/dL Normal 3.2-5.[address] [facility] Comment on above: Performed By: #### C MP ####[facility] ([address] [place] [address] VIR ALP [Catalytic activity/Vol] 94 U/L Normal 39-130 [facility] Comment on above: Performed By: #### C MP ####[facility] ([address] [place] [address] VIR ALT [Catalytic activity/Vol] 8 U/L Normal <=31 [facility] Comment on above: Performed By: #### C MP ####[facility] ([address] [place] [address] VIR Anion gap [Moles/Vol] 12 mmol/L Normal 5-15 [facility] [place] Comment on above: Performed By: #### C MP ####[facility] ([address] [place] [address] VIR AST [Catalytic activity/Vol] 11 U/L Normal <=41 [facility] Comment on above: Performed By: #### C MP ####[facility] ([address] [place] [address] VIR Bilirubin [Mass/Vol] 0.7 mg/dL Normal 0.3-1.2 [facility] Comment on above: Performed By: #### C MP ####[facility] ([address] [place] [address] VIR Calcium [Mass/Vol] 9.3 mg/dL Normal 8.5-10.[address] [facility] Comment on above: Performed By: #### C MP ####[facility] ([address] [place] [address] VIR Chloride [Moles/Vol] 106 mmol/L Normal 98-109 [facility] Comment on above: Performed By: #### C MP ####[facility] ([address] [place] [address] VIR CO2 [Moles/Vol] 20 mmol/L Low 22-32 [facility] Comment on above: Performed By: #### C MP ####[facility] ([address] [place] [address] VIR Creatinine [Mass/Vol] 1.65 mg/dL High 0.40-1.00 [facility] [place] Comment on above: Result Comment: METH OD TRACEABLE TO IDMS STANDARD Performed By: #### C MP ####[facility] ([address] [place] [address] VIR GFR/1.73 sq M.predicted among non-blacks MDRD (S/P/Bld) [Vol rate/Area] 31 mL/min/{1.73_m2} Low >=60 [facility] Comment on above: Result Comment: eGFR not reported due to non-numeric value for Creatinine.Reported eGFR is based on theCKD-EPI 2020 equation that doesnot use a race coefficient. Performed By: #### C MP ####[facility] ([address] [place] [address] VIR Glucose [Mass/Vol] 200 mg/dL High 65-[address] [facility] Comment on above: Performed By: #### C MP ####[facility] ([address] [place] [address] VIR Potassium [Moles/Vol] 5.0 mmol/L Normal 3.5-5.0 [facility] [place] Comment on above: Performed By: #### C MP ####[facility] ([address] [place] [address] VIR Protein [Mass/Vol] 6.9 g/dL Normal 6.0-8.[address] [facility] Comment on above: Performed By: #### C MP ####[facility] ([address] [place] [address] VIR Sodium [Moles/Vol] 138 mmol/L Normal 134-[address] [facility] Comment on above: Performed By: #### C MP ####[facility] ([address] [place] [address] VIR Urea nitrogen [Mass/Vol] 63 mg/dL High 5-27 [facility] Comment on above: Performed By: #### C MP ####[facility] ([address] [place] [address] VIR MAGNESIUMon 10-24-2024 Magnesium [Mass/Vol] 2.0 mg/dL Normal 1.8-2.6 [facility] Comment on above: Performed By: #### M G ####[facility] ([address] [place] [address] VIR VANCOMYCIN, RANDOMon 025 VANCOMYCIN 22.3 ug/mL Normal 5.0-40.0 [facility] Comment on above: Order Comment: Peak 30-40 ug/mLTrough 5-20 ug/ml Performed By: #### V ANC ####[facility] ([address] [place] [address] VIR B-TYPE NATRIURETIC PEPTIDEon 10-23-2024 Natriuretic peptide B (Bld) [Mass/Vol] 41 pg/mL Normal <=100 [facility] Comment on above: Performed By: #### B DIRECTOR OF CODING ####[facility] ([address] [place] [address] VIR BEDSIDE GLUCOSEon 10-23-2024 Glucose [Mass/Vol] 294 mg/dL High 65-[address] [facility] Comment on above: Performed By: #### B EDG ####[facility] ([address] [place] [address] VIR CBC WITH AUTO DIFFERENTIALon 10-23-2024 BASOPHILS ABSOLUTE COUNT (10*3/UL) BY AUTOMATED COUNT 0.1 10*3/uL Normal 0.0-0.2 [facility] Comment on above: Performed By: #### C BCA ####[facility] ([address] [place] [address] VIR BASOPHILS RELATIVE PERCENT BY AUTOMATED COUNT 0.8 % Normal [facility] Comment on above: Performed By: #### C BCA ####[facility] ([facility])[address] [place], [place] [address]E.[place] [address] VIR CELLAVISION DIFFERENTIAL TYPE AUTOMATED DIFFERENTIAL Normal [facility] Comment on above: Performed By: #### C BCA ####[facility] ([address] [place] [address] VIR Eosinophils (Bld) [#/Vol] 0.3 10*3/uL Normal 0.0-0.4 [facility] Comment on above: Performed By: #### C BCA ####[facility] ([facility])[address] [place] [address] [place] [address] VIR EOSINOPHILS RELATIVE PERCENT BY AUTOMATED COUNT 2.5 % Normal [facility] Comment on above: Performed By: #### C BCA ####[facility] ([address] [address] VIR Erythrocyte distribution width (RBC) [Ratio] 13.7 % Normal 11.5-15 [facility] Comment on above: Performed By: #### C BCA ####[facility] ([address] [address] VIR Hematocrit (Bld) [Volume fraction] 33.7 % Low 35-47 [facility] Comment on above: Performed By: #### C BCA ####[facility] ([address] [address] VIR Hemoglobin (Bld) [Mass/Vol] 11.2 g/dL Low 11.7-15.5 [facility] Comment on above: Performed By: #### C BCA ####[facility] ([address] [address] VIR LYMPHOCYTES ABSOLUTE COUNT (10*3/UL) BY AUTOMATED COUNT 1.3 10*3/uL Normal 1.0-3.5 [facility] Comment on above: Performed By: #### C BCA ####[facility] ([address] [address] VIR LYMPHOCYTES RELATIVE PERCENT BY AUTOMATED COUNT 13.1 % Normal [facility] Comment on above: Performed By: #### C BCA ####[facility] ([address] [address] VIR MCH (RBC) [Entitic mass] 30.1 pg Normal 27-34 [facility] Comment on above: Performed By: #### C BCA ####[facility] ([address] [address] VIR MCHC (RBC) [Mass/Vol] 33.2 g/dL Normal 32-36 [facility] [place] Comment on above: Performed By: #### C BCA ####[facility] [place] [address] VIR MCV (RBC) [Entitic vol] 91 fL Normal 80-100 [facility] Comment on above: Performed By: #### C BCA ####[facility] ([address] [place] [address] VIR MONOCYTES ABSOLUTE COUNT (10*3/UL) BY AUTOMATED COUNT 1.1 10*3/uL High 0.0-0.9 [facility] Comment on above: Performed By: #### C BCA ####[facility] ([address] [place] [address] VIR MONOCYTES RELATIVE PERCENT BY AUTOMATED COUNT 10.6 % Normal [facility] Comment on above: Performed By: #### C BCA ####[facility] ([address] [place] [address] VIR NEUTROPHILS ABSOLUTE COUNT BY AUTOMATED COUNT 7.4 10*3/uL High 1.5-6.6 [facility] Comment on above: Performed By: #### C BCA ####[facility] ([address] [address] VIR NEUTROPHILS RELATIVE PERCENT BY AUTOMATED COUNT 73.0 % Normal [facility] Comment on above: Performed By: #### C BCA ####[facility] ([address] [place] [address] VIR Platelet mean volume (Bld) [Entitic vol] 8.3 fL Normal 7-12 [facility] Comment on above: Performed By: #### C BCA ####[facility] ([address] [place] [address] VIR Platelets (Bld) [#/Vol] 405 10*3/uL Normal 150-450 [facility] Comment on above: Performed By: #### C BCA ####[facility] ([address] [place] [address] VIR RBC COUNT 3.73 X10E12/L Low 3.8-5.2 [facility] Comment on above: Performed By: #### C BCA ####[facility] ([address] [place] [address] VIR WBC (Bld) [#/Vol] 10.1 10*3/uL Normal 4-11 [facility] Comment on above: Performed By: #### C BCA ####[facility] ([address] [place] [address] VIR COMPREHENSIVE METABOLIC PANE José Luis 10-23-2024 Albumin [Mass/Vol] 3.5 g/dL Normal 3.2-5.[address] [facility] Comment on above: Performed By: #### C MP ####[facility] ([address] [place] [address] VIR ALP [Catalytic activity/Vol] 104 U/L Normal 39-130 [facility] Comment on above: Performed By: #### C MP ####[facility] ([address] [place] [address] VIR ALT [Catalytic activity/Vol] 9 U/L Normal <=31 [facility] Comment on above: Performed By: #### C MP ####[facility] ([address] [place] [address] VIR Anion gap [Moles/Vol] 7 mmol/L Normal 5-15 [facility] Comment on above: Performed By: #### C MP ####[facility] ([address] [place] [address] VIR AST [Catalytic activity/Vol] 10 U/L Normal <=41 [facility] Comment on above: Performed By: #### C MP ####[facility] ([place] [address] [place] [address] VIR Bilirubin [Mass/Vol] 0.7 mg/dL Normal 0.3-1.2 [facility] Comment on above: Performed By: #### C MP ####[facility] ([address] [place] [address] VIR Calcium [Mass/Vol] 9.2 mg/dL Normal 8.5-10.[address] [facility] Comment on above: Performed By: #### C MP ####[facility] ([address] [place] [address] VIR Chloride [Moles/Vol] 106 mmol/L Normal 98-109 [facility] Comment on above: Performed By: #### C MP ####[facility] ([address] [place] [address] VIR CO2 [Moles/Vol] 20 mmol/L Low 22-32 [facility] Comment on above: Performed By: #### C MP ####[facility] ([address] [place] [address] VIR Creatinine [Mass/Vol] 1.94 mg/dL High 0.40-1.00 [facility] [place] Comment on above: Result Comment: METH OD TRACEABLE TO IDMS STANDARD Performed By: #### C MP ####[facility] ([address] [place] [address] VIR GFR/1.73 sq M.predicted among non-blacks MDRD (S/P/Bld) [Vol rate/Area] 25 mL/min/{1.73_m2} Low >=60 [facility] Comment on above: Result Comment: eGFR not reported due to non-numeric value for Creatinine.Reported eGFR is based on theCKD-EPI 2020 equation that doesnot use a race coefficient. Performed By: #### C MP ####[facility] ([address] [place] [address] VIR Glucose [Mass/Vol] 328 mg/dL High 65-[address] [facility] Comment on above: Performed By: #### C MP ####[facility] ([facility])[address] [place] [address].[place] [address] VIR Potassium [Moles/Vol] 5.6 mmol/L High 3.5-5.0 [facility] Comment on above: Performed By: #### C MP ####[facility] ([address] [place] [address] VIR Protein [Mass/Vol] 7.2 g/dL Normal 6.0-8.[address] [facility] Comment on above: Performed By: #### C MP ####[facility] ([address] [place] [address] VIR Sodium [Moles/Vol] 133 mmol/L Low 134-[address] [facility] Comment on above: Performed By: #### C MP ####[facility] ([address] [address] VIR Urea nitrogen [Mass/Vol] 74 mg/dL High 5-27 [facility] Comment on above: Performed By: #### C MP ####[facility] ([address] [place] [address] VIR LACTATE W/ REFLEXon 10-24-19 25 LACTATE W/REFLEX 1.0 mmol/L Normal 0.4-2.0 [facility] Comment on above: Order Comment: Resul t did not trigger repeat Lactate,re-order if needed. Performed By: #### L ACTS ####[facility] ([address] [place] [address] VIR 29on 10-19-2024 29 Addended by: SURJIT CORDOVA on: 10/19/2024 02:56 PM Modules accepted: Orders Normal [facility] Office Visiton 10-19-2024 Follow-up visit [id number] Rupa Gutierrez 1940 F Date Provider Department Center 10/19/2024 SURJIT SEVILLA MP ORTHO MPORTHO Family History Family history unknown: Yes Level of Service:49780 [place] OFFICE/OUTPATIENT NEW LOW MDM 30 MINUTES Reason for Visit and Comments: Pain [136] Normal [facility] SUPERFICIAL WOUND CULTUREon 10-08-2024 Bacteria identified Aer cx Nom (Wound) GRAM STAIN 1 to 9 WHITE BLOOD CELLS/LPF 0 SQUAMOUS EPITHELIAL CELLS/LPF MANY GRAM POSITIVE COCCOBACILLI CULTURE RESULTS MANY MIXED GRAM POSITIVE AND GRAM NEGATIVE ORGANISMS NO BETA HEMOLYTIC STREPTOCOCCI ISOLATED NO PSEUDOMONAS AERUGINOSA ISOLATED NO STAPHYLOCOCCUS AUREUS ISOLATED Normal [facility] Comment on above: Performed By: #### 6 32-0 #### [facility] ([id number]) [address], [address] [place] [address] BASIC METABOLIC PANLon 09-07 Anion gap [Moles/Vol] 8 mmol/L Normal 5-15 [facility] [place] Comment on above: Performed By: #### 7 18-7, BMP ####[facility] ([id number])[address], [place] [address] Calcium [Mass/Vol] 9.7 mg/dL Normal 8.5-10.[address] [facility] Comment on above: Performed By: #### 7 18-7, BMP ####[facility] ([id number])[address], [place] [address] Chloride [Moles/Vol] 103 mmol/L Normal 98-109 [facility] Comment on above: Performed By: #### 7 18-7, BMP ####[facility] [facility] ([id number])[address], [place] [address] CO2 [Moles/Vol] 29 mmol/L Normal 22-32 [facility] Comment on above: Performed By: #### 7 18-7, BMP ####[facility] ([id number])[address], [address], [place] [address] Creatinine [Mass/Vol] 1.83 mg/dL High 0.40-1.00 [facility] [place] Comment on above: Result Comment: METH OD TRACEABLE TO IDMS STANDARD Performed By: #### 7 18-7, BMP ####[facility] ([id number])[address] [address] [place] [address] GFR/1.73 sq M.predicted among non-blacks MDRD (S/P/Bld) [Vol rate/Area] 27 mL/min/{1.73_m2} Low >59 [facility] Comment on above: Result Comment: Repo rted eGFR is based on theCKD-EPI 2020 equation that doesnot use a race coefficient. Performed By: #### 7 18-7, BMP ####[facility] ([id number])[address] [address] Glucose [Mass/Vol] 166 mg/dL High 65-[address] [facility] Comment on above: Performed By: #### 7 -7, BMP ####[facility] ([id number])[address] [address] Potassium [Moles/Vol] 4.8 mmol/L Normal 3.5-5.0 [facility] [place] Comment on above: Performed By: #### 7 18-7, BMP ####[facility] ([id number])[address] [facility] [place] [address] Sodium [Moles/Vol] 140 mmol/L Normal 134-[address] [facility] Comment on above: Performed By: #### 7 -7, BMP ####[facility] ([id number])[address] [address] [place] [address], [place] [address] Urea nitrogen [Mass/Vol] 43 mg/dL High 5-27 [facility] Comment on above: Performed By: #### 7 18-7, BMP ####[facility] ([id number])[address] [address] [place] [address] HEMOGLOBINon 09-07-2024 Hemoglobin (Bld) [Mass/Vol] 12.6 g/dL Normal 11.7-15.5 [facility] Comment on above: Performed By: #### 7 18-7, BMP ####[facility] ([id number])[address], [address] [place] [address] XR CHEST 2 VWSon 09-07-2024 XR CHEST 2 VWS Normal [facility] CT BRAIN WO CONTon CT BRAIN WO CONT Normal [facility] CT CERVICAL SPINE WO CONTon 09-02-2024 CT CERVICAL SPINE WO CONT Normal [facility] Glucose Glucometer (dC) [M ass/Vol]on 08-30-2024 Glucose [Mass/Vol] 393 mg/dL High 65-[address] [facility] XR ELBOW RT MIN 3 VWSon 08-15 XR ELBOW RT MIN 3 VWS Normal [facility] [place] XR FOREARM RT 2 VWSon 2024 XR FOREARM RT 2 VWS Normal [facility] XR WRIST RT MIN 3 VWSon 08-15 XR WRIST RT MIN 3 VWS Normal [facility] [place] XR WRIST RT MIN 3 VWS Normal [facility] [place] BASIC METABOLIC PANLon 02-06 Anion gap [Moles/Vol] 12 mmol/L Normal 5-15 [facility] [place] Comment on above: Performed By: #### 2 731-8, 08168-2, BMP, CBC, UPCR, 2777-1 ####[facility] ([id number])[address], [address] [place] [address] Calcium [Mass/Vol] 9.0 mg/dL Normal 8.5-10.[address] [facility] Comment on above: Performed By: #### 2 731-8, 87403-2, BMP, CBC, UPCR, 2777-1 ####[facility] ([id number])[address], [address] [place] [address] Chloride [Moles/Vol] 104 mmol/L Normal 98-109 [facility] Comment on above: Performed By: #### 2 731-8, 16566-5, BMP, CBC, UPCR, 2777-1 ####[facility] ([id number])[address], [address] [place] [address] CO2 [Moles/Vol] 26 mmol/L Normal 22-32 [facility] Comment on above: Performed By: #### 2 731-8, 56890-5, BMP, CBC, UPCR, 2777-1 ####[facility] ([id number])[address], [address] [place] [address] Creatinine [Mass/Vol] 1.57 mg/dL High 0.40-1.00 [facility] [place] Comment on above: Result Comment: METH OD TRACEABLE TO IDMS STANDARD Performed By: #### 2 731-8, 89405-7, BMP, CBC, UPCR, 277-1 ####[facility] ([id number])[address] [address] GFR/1.73 sq M.predicted among non-blacks MDRD (S/P/Bld) [Vol rate/Area] 33 mL/min/{1.73_m2} Low >59 [facility] Comment on above: Result Comment: Repo rted eGFR is based on theCKD-EPI 2020 equation that doesnot use a race coefficient. Performed By: #### 2 731-8, 48499-5, BMP, CBC, UPCR, 2777-1 ####[facility] ([id number])[address] [address] Glucose [Mass/Vol] 221 mg/dL High 65-[address] [facility] Comment on above: Performed By: #### 2 731-8, 87360-1, BMP, CBC, UPCR, 2777-1 ####[facility] ([id number])[address] [address], [place] [address] Potassium [Moles/Vol] 4.2 mmol/L Normal 3.5-5.0 [facility] [place] Comment on above: Performed By: #### 2 731-8, 16975-8, BMP, CBC, UPCR, 277-1 ####[facility] ([id number])[address] [address] [place] [address] Sodium [Moles/Vol] 142 mmol/L Normal 134-[address] [facility] Comment on above: Performed By: #### 2 731-8, 40831-3, BMP, CBC, UPCR, 277-1 ####[facility] ([id number])[address] [address] [place] [address] Urea nitrogen [Mass/Vol] 37 mg/dL High 5-27 [facility] Comment on above: Performed By: #### 2 731-8, 73538-2, BMP, CBC, UPCR, 277-1 ####[facility] ([id number])[address] [address] COMPLETE BLOOD COUNTon 02-06 Erythrocyte distribution width (RBC) [Ratio] 13.5 % Normal 11.5-15.0 [facility] Comment on above: Performed By: #### 2 731-8, 67185-8, BMP, CBC, UPCR, 2776-1 ####[facility] ([id number])[address] [address] [place] [address] Hematocrit (Bld) [Volume fraction] 38.3 % Normal 35-47 [facility] Comment on above: Performed By: #### 2 731-8, 10593-1, BMP, CBC, UPCR, 277-1 ####[facility] ([id number])[address] [address] [place] [address] Hemoglobin (Bld) [Mass/Vol] 12.7 g/dL Normal 11.7-15.5 [facility] Comment on above: Performed By: #### 2 731-8, , BMP, CBC, UPCR, 2776-06 ####[facility] ([id number])[address], [address] [place] [address] MCH (RBC) [Entitic mass] 30.3 pg Normal 27-34 [facility] Comment on above: Performed By: #### 2 73-8, 24749-2, BMP, CBC, UPCR, 2776- ####[facility] ([id number])[address] [address] [place] [address] MCHC (RBC) [Mass/Vol] 33.2 g/dL Normal 32-36 [facility] [place] Comment on above: Performed By: #### 2 73-8, , BMP, CBC, UPCR, 2776- ####[facility] ([id number])[address] [address] [place] [address] MCV (RBC) [Entitic vol] 91 fL Normal 80-100 [facility] Comment on above: Performed By: #### 2 73-8, , BMP, CBC, UPCR, 2776-06 ####[facility] ([id number])[address] [address] [place] [address] Platelet mean volume (Bld) [Entitic vol] 8.3 fL Normal 7-12 [facility] Comment on above: Performed By: #### 2 731-8, , BMP, CBC, UPCR, 2776- ####[facility] ([id number])[address] [address] Platelets (Bld) [#/Vol] 297 10*3/uL Normal 150-450 [facility] Comment on above: Performed By: #### 2 731-8, , BMP, CBC, UPCR, 2776- ####[facility] ([id number])[address], [address] [place] [address] RBC COUNT 4.19 X10E12/L Normal 3.80-5.20 [facility] Comment on above: Performed By: #### 2 73-8, 75179-3, BMP, CBC, UPCR, 2776-1 ####[facility] ([id number])[address], [address] [place] [address] WBC (Bld) [#/Vol] 8.7 10*3/uL Normal 4.0-11.[address] [facility] Comment on above: Performed By: #### 2 73-8, , BMP, CBC, UPCR, 2776- ####[facility] ([id number])[address] [address] [place] [address] MAGNESIUMon 02-07-2024 Magnesium [Mass/Vol] 1.7 mg/dL Low 1.8-2.6 [facility] Comment on above: Performed By: #### 2 73-8, , BMP, CBC, UPCR, 2776-06 ####[facility] ([id number])[address] [address] [place] [address] PHOSPHORUSon 02-07-2024 Phosphate [Mass/Vol] 3.7 mg/dL Normal 2.4-4.9 [facility] Comment on above: Performed By: #### 2 73-8, 00740-4, BMP, CBC, UPCR, 2776-1 ####[facility] ([id number])[address] [address] [place] [address] PROTEIN CREAT RATIOon 2023 RANDOM URINE PROTEIN 500 mg/L High <120 [facility] Comment on above: Performed By: #### 2 73-8, 95065-2, BMP, CBC, UPCR, 2777- ####[facility] ([id number])[address] [address] U/PRO/DERRICK BOAT LEVER OPERATOR RATIO CALC 0.80 High <0.2 [facility] Comment on above: Result Comment: Neph rotic Syndrome is associated with ratios >3.5 Performed By: #### 2 731-8, 34632-1, BMP, CBC, UPCR, 277-1 ####[facility] ([id number])[address], [address] [place] [address] URINE CREATININE,RDM 62.89 mg/dL Normal [facility] [place] Comment on above: Performed By: #### 2 731-8, 86809-5, BMP, CBC, UPCR, 277-1 ####[facility] ([id number])[address] [address] Parathyrin.intact [Mass/Vol] on 02-07-2024 PTH INTACT 161 pg/mL High 12-88 [facility] Comment on above: Performed By: #### 2 731-8, 34893-4, BMP, CBC, UPCR, 277-1 ####[facility] ([id number])[address] [place] [address] URINALYSISon 02-07-2024 Bilirubin Ql (U) Negative Normal NEG [facility] Comment on above: Performed By: #### U A ####[facility] ([id number])[address] [address] BLOOD/HGB Small Abnormal NEG [facility] Comment on above: Performed By: #### U A ####[facility] ([id number])[address] [place] [address] Color (U) YELLOW Normal YELLOW [facility] Comment on above: Performed By: #### U A ####[facility] ([id number])[address], [place] [address] Glucose Ql (U) 300 mg/dL Abnormal NEG [facility] Comment on above: Performed By: #### U A ####[facility] ([id number])[address], [place] [address] Ketones Ql (U) Negative Normal NEG [facility] Comment on above: Performed By: #### U A ####[facility] ([id number])[address], [place] [address] Leukocyte esterase Test strip Ql (U) Negative Normal NEG [facility] Comment on above: Performed By: #### U A ####[facility] ([id number])[address], [place] [address] MUCOUS PRESENT Abnormal NONE [facility] Comment on above: Performed By: #### U A ####[facility] ([id number])[address], [place] [address] Nitrite Ql (U) Negative Normal NEG [facility] Comment on above: Performed By: #### U A ####[facility] ([id number])[address], [place] [address] pH (U) 6.0 [pH] Normal 5.0-8.5 [facility] Comment on above: Performed By: #### U A ####[facility] ([id number])[address], [place] [address] Protein Ql (U) 50 mg/dL Abnormal NEG [facility] Comment on above: Performed By: #### U A ####[facility] ([id number])[address], [place] [address] R.B.CELLS 0 /hpf Normal 0-5 [facility] Comment on above: Performed By: #### U A ####[facility] ([id number])[address] [address] [place] [address] Specific gravity (U) [Rel density] 1.018 Normal 1.003-1.035 [facility] Comment on above: Performed By: #### U A ####[facility] ([id number])[address] [address] [place] [address] SQUAMOUS EPITHELIUM 2 /hpf Normal 0-5 [facility] Comment on above: Performed By: #### U A ####[facility] ([id number])[address] [address] [place] [address] TURBIDITY CLEAR Normal CLEAR [facility] Comment on above: Performed By: #### U A ####[facility] ([id number])[address] [address] [place] [address] Urobilinogen (U) [Mass/Vol] mg/dL Normal <1.1 [facility] Comment on above: Performed By: #### U A ####[facility] ([id number])[address] [address] W.B.CELLS 1 /hpf Normal 0-5 [facility] Comment on above: Performed By: #### U A ####[facility] ([id number])[address] [address] Basic Metabolic Panelon 04-2 Calcium [Mass/Vol] 9.3 mg/dL Normal 8.2-10.2 [facility] Comment on above: Performed By: #### C BC, CMP, PT, PTT #### [facility] [address] [place] [address] [place] Chloride [Moles/Vol] 97 mmol/L Normal 95-114 [facility] Comment on above: Performed By: #### C BC, CMP, PT, PTT #### [facility] [address] CO2 [Moles/Vol] 27.6 mmol/L Normal 22.0-30.0 [facility] [place] [facility] Comment on above: Performed By: #### C BC, CMP, PT, PTT #### [facility] [address] Creatinine [Mass/Vol] 2.48 mg/dL High 0.44-1.03 [facility] Comment on above: Performed By: #### C BC, CMP, PT, PTT #### [facility] [address] Creatinine Clr Calc Pharmacy 20.65 [facility] Comment on above: Result Comment: PERF ORMED BY: [place] [address] PATHOLOGIST FIELD SEISMOLOGIST NATHALIE VIEIRA M.D. Performed By: #### C BC, CMP, PT, PTT #### [address] Estimated GFR ( Berta 23 [facility] Comment on above: Result Comment: GFR estimated reference range: According to KDOQI guidelines, <60 ml/min/1.73m2 is sufficient to diagnose a patient with chronic kidney disease. Performed By: #### C BC, CMP, PT, PTT #### [address] Estimated GFR (Non- Am 19 [facility] Comment on above: Performed By: #### C BC, CMP, PT, PTT #### [place] [address] [place] Glucose [Mass/Vol] 144 mg/dL High 70-100 [facility] Comment on above: Result Comment: [place] om Glucose Reference Range is dependent on time and content of last meal. Glucose of more than 200 mg/dL in a nonstressed, ambulatory subject supports the diagnosis of Diabetes Mellitus. ADA recommended reference range Performed By: #### C BC, CMP, PT, PTT #### [place] [address] [place] Potassium [Moles/Vol] 4.2 mmol/L Normal 3.5-5.1 [facility] Comment on above: Performed By: #### C BC, CMP, PT, PTT #### [facility] [address] Sodium [Moles/Vol] 137 mmol/L Normal 136-146 [facility] Comment on above: Performed By: #### C BC, CMP, PT, PTT #### [facility] [address] Urea nitrogen [Mass/Vol] 33 mg/dL High 03-09 Comment on above: Performed By: #### C BC, CMP, PT, PTT #### [facility] [address] Glucose Poct Glucometerson 0 10-07-2021 Commemt1 Glu2: Cleaned Meter Normal [facility] Comment on above: Result Comment: PERF ORMED BY: [place] [address] PATHOLOGIST FIELD SEISMOLOGIST NATHALIE VIEIRA M.D. Performed By: #### C BC, CMP, PT, PTT #### [address] Glucose [Mass/Vol] 135 mg/dL Normal [facility] Comment on above: Result Comment: [facility] Glucose Reference Range is dependent on time and content of last meal. Glucose of more than 200 mg/dL in a nonstressed, ambulatory subject supports the diagnosis of Diabetes Mellitus. Performed By: #### C BC, CMP, PT, PTT #### [facility] [address] Basic Metabolic Panelon 09-16 Calcium [Mass/Vol] 9.3 mg/dL Normal 8.2-10.2 [facility] Comment on above: Performed By: #### B MP #### [facility] [address] Chloride [Moles/Vol] 96 mmol/L Normal 95-114 [facility] Comment on above: Performed By: #### B MP #### [address] CO2 [Moles/Vol] 30.7 mmol/L High 22.0-30.0 [facility] Comment on above: Performed By: #### B MP #### [address] Creatinine [Mass/Vol] 2.47 mg/dL High 0.44-1.03 [facility] Comment on above: Performed By: #### B MP #### [place] [address] [place] Creatinine Clr Calc Pharmacy 20.73 [facility] Comment on above: Result Comment: PERF ORMED BY: [place] [address] PATHOLOGIST FIELD SEISMOLOGIST NATHALIE VIEIRA M.D. Performed By: #### B MP #### [address] Estimated GFR ( Berta 23 [facility] Comment on above: Result Comment: GFR estimated reference range: According to KDOQI guidelines, <60 ml/min/1.73m2 is sufficient to diagnose a patient with chronic kidney disease. Performed By: #### B MP #### [address] Estimated GFR (Non- Am 19 [facility] Comment on above: Performed By: #### B MP #### [address] Glucose [Mass/Vol] 160 mg/dL High 70-100 [facility] Comment on above: Result Comment: [place] om Glucose Reference Range is dependent on time and content of last meal. Glucose of more than 200 mg/dL in a nonstressed, ambulatory subject supports the diagnosis of Diabetes Mellitus. ADA recommended reference range Performed By: #### B MP #### [address] Potassium [Moles/Vol] 4.3 mmol/L Normal 3.5-5.1 [facility] Comment on above: Performed By: #### B MP #### [facility] [address] [place] [id number] [facility] Sodium [Moles/Vol] 138 mmol/L Normal 136-146 [facility] Comment on above: Performed By: #### B MP #### [facility] [address] Urea nitrogen [Mass/Vol] 29 mg/dL High 9- Comment on above: Performed By: #### B MP #### [facility] [address] Glucose Poct Glucometerson 0 10-06-2021 Glucose [Mass/Vol] 218 mg/dL Normal [facility] Comment on above: Result Comment: [place] om Glucose Reference Range is dependent on time and content of last meal. Glucose of more than 200 mg/dL in a nonstressed, ambulatory subject supports the diagnosis of Diabetes Mellitus. PERFORMED BY: [place] [address] PATHOLOGIST FIELD SEISMOLOGIST NATHALIE VIEIRA M.D. Performed By: #### C K, CKMB, HS TROP #### [address] Commemt1 Glu2: Cleaned Meter Normal [facility] Comment on above: Result Comment: PERF ORMED BY: [place] [address] PATHOLOGIST FIELD SEISMOLOGIST NATHALIE VIEIRA M.D. Performed By: #### C K, CKMB, HS TROP #### [address] Glucose [Mass/Vol] 190 mg/dL Normal [facility] Comment on above: Result Comment: [place] om Glucose Reference Range is dependent on time and content of last meal. Glucose of more than 200 mg/dL in a nonstressed, ambulatory subject supports the diagnosis of Diabetes Mellitus. Performed By: #### C K, CKMB, HS TROP #### [place] [address] [place] Glucose [Mass/Vol] 293 mg/dL Normal [facility] Comment on above: Result Comment: [place] om Glucose Reference Range is dependent on time and content of last meal. Glucose of more than 200 mg/dL in a nonstressed, ambulatory subject supports the diagnosis of Diabetes Mellitus. PERFORMED BY: [place] [address] PATHOLOGIST FIELD SEISMOLOGIST NATHALIE VIEIRA M.D. Performed By: #### G LULS #### Point of Care testing , Glucose [Mass/Vol] 143 mg/dL Normal [facility] Comment on above: Result Comment: [place] om Glucose Reference Range is dependent on time and content of last meal. Glucose of more than 200 mg/dL in a nonstressed, ambulatory subject supports the diagnosis of Diabetes Mellitus. PERFORMED BY: [place] [address] PATHOLOGIST FIELD SEISMOLOGIST NATHALIE VIEIRA M.D. Performed By: #### C K, CKMB, HS TROP #### [address] Glucose [Mass/Vol] 177 mg/dL Normal [facility] Comment on above: Result Comment: [place] om Glucose Reference Range is dependent on time and content of last meal. Glucose of more than 200 mg/dL in a nonstressed, ambulatory subject supports the diagnosis of Diabetes Mellitus. PERFORMED BY: [place] [address] PATHOLOGIST FIELD SEISMOLOGIST NATHALIE VIEIRA M.D. Performed By: #### C K, CKMB, HS TROP #### [place] [address] [place] Basic Metabolic Panelon 09-16 Calcium [Mass/Vol] 9.1 mg/dL Normal 8.2-10.2 [facility] Comment on above: Performed By: #### C BC, CMP, PT, PTT #### [place] [id number] [place] Chloride [Moles/Vol] 98 mmol/L Normal 95-114 [facility] Comment on above: Performed By: #### C BC, CMP, PT, PTT #### [facility] [address] [place] [address] [place] CO2 [Moles/Vol] 29.0 mmol/L Normal 22.0-30.0 [facility] Comment on above: Performed By: #### C BC, CMP, PT, PTT #### [facility] [address] [place] [id number] [facility] Creatinine [Mass/Vol] 1.51 mg/dL High 0.44-1.03 [facility] Comment on above: Performed By: #### C BC, CMP, PT, PTT #### [facility] [address] [place] [address] [place] Creatinine Clr Calc Pharmacy 33.69 [facility] Comment on above: Performed By: #### C BC, CMP, PT, PTT #### [facility] [address] [place] [address] [place] Estimated GFR ( Berta 40 [facility] Comment on above: Result Comment: GFR estimated reference range: According to KDOQI guidelines, <60 ml/min/1.73m2 is sufficient to diagnose a patient with chronic kidney disease. Performed By: #### C BC, CMP, PT, PTT #### [facility] [address] [place] [address] [place] Estimated GFR (Non- Am 33 [facility] Comment on above: Performed By: #### C BC, CMP, PT, PTT #### [facility] [address] [place] [address] [place] Glucose [Mass/Vol] 143 mg/dL High 70-100 [facility] Comment on above: Result Comment: [place] Glucose Reference Range is dependent on time and content of last meal. Glucose of more than 200 mg/dL in a nonstressed, ambulatory subject supports the diagnosis of Diabetes Mellitus. ADA recommended reference range Performed By: #### C BC, CMP, PT, PTT #### [facility] [address] Potassium [Moles/Vol] 3.7 mmol/L Normal 3.5-5.1 [facility] Comment on above: Performed By: #### C BC, CMP, PT, PTT #### [facility] [address] Sodium [Moles/Vol] 139 mmol/L Normal 136-146 [facility] Comment on above: Performed By: #### C BC, CMP, PT, PTT #### [facility] [facility] [address] Urea nitrogen [Mass/Vol] 22 mg/dL Normal 9-23 Comment on above: Performed By: #### C BC, CMP, PT, PTT #### [facility] [address] Complete Blood Count Auto Di ffon 10-05-2021 Basophils (Bld) [#/Vol] 0.1 10*3/uL Normal 0.0-0.2 Comment on above: Result Comment: PERF ORMED BY: [place] [address] PATHOLOGIST FIELD SEISMOLOGIST NATHALIE VIEIRA M.D. Performed By: #### C K, CKMB, HS TROP #### [address] Basophils/100 WBC (Bld) 1.1 % Normal . Comment on above: Performed By: #### C K, CKMB, HS TROP #### [address] Eosinophils (Bld) [#/Vol] 0.1 10*3/uL Normal 0.0-0.45 Comment on above: Performed By: #### C K, CKMB, HS TROP #### [place] [address] [place] Eosinophils/100 WBC (Bld) 1.2 % Normal . Comment on above: Performed By: #### C K, CKMB, HS TROP #### [facility] [address] Erythrocyte distribution width (RBC) [Ratio] 13.0 % Normal 11.9-15.3 Comment on above: Performed By: #### C K, CKMB, HS TROP #### [facility] [address] Hematocrit (Bld) [Volume fraction] 37.0 % Normal 34.0-46.4 Comment on above: Performed By: #### C K, CKMB, HS TROP #### [facility] [address] Hemoglobin (Bld) [Mass/Vol] 12.0 g/dL Normal 11.8-15.4 Comment on above: Performed By: #### C K, CKMB, HS TROP #### [address] Lymphocytes (Bld) [#/Vol] 1.9 10*3/uL Normal 1.00-4.8 Comment on above: Performed By: #### C K, CKMB, HS TROP #### [address] Lymphocytes/100 WBC (Bld) 21.6 % Normal . Comment on above: Performed By: #### C K, CKMB, HS TROP #### [address] MCH (RBC) [Entitic mass] 28.8 pg Normal 24.7-34.3 Comment on above: Performed By: #### C K, CKMB, HS TROP #### [address] MCV (RBC) [Entitic vol] 88.7 fL Normal 80-100 Comment on above: Performed By: #### C K, CKMB, HS TROP #### [address] Mean Corpuscular HGB Conc 32.5 g/dL Normal 32.0-35.0 Comment on above: Performed By: #### C K, CKMB, HS TROP #### [address] Monocytes (Bld) [#/Vol] 1.1 10*3/uL High 0.0-0.8 Comment on above: Performed By: #### C K, CKMB, HS TROP #### [facility] [address] Monocytes/100 WBC (Bld) 12.3 % Normal . Comment on above: Performed By: #### C K, CKMB, HS TROP #### [facility] [address] Neutrophils (Bld) [#/Vol] 5.6 10*3/uL Normal 1.8-7.7 Comment on above: Performed By: #### C K, CKMB, HS TROP #### [address] Neutrophils/100 WBC (Bld) 63.8 % Normal . Comment on above: Performed By: #### C K, CKMB, HS TROP #### [address] Nucleated RBC/100 WBC (Bld) [Ratio] 0.0 % Normal 0-0.5 Comment on above: Performed By: #### C K, CKMB, HS TROP #### [address] Platelet mean volume (Bld) [Entitic vol] 7.6 fL Normal 6.3-10.7 Comment on above: Performed By: #### C K, CKMB, HS TROP #### [place] [address] [place] Platelets (Bld) [#/Vol] 271 10*3/uL Normal 150-450 Comment on above: Performed By: #### C K, CKMB, HS TROP #### [place] [address] [place] RBC (Bld) [#/Vol] 4.17 10*6/uL Normal 3.60-5.00 [facility] Comment on above: Performed By: #### C K, CKMB, HS TROP #### [facility] [address] [place] [id number] [place] WBC (Bld) [#/Vol] 8.7 10*3/uL Normal 4.5-11.0 [facility] Comment on above: Performed By: #### C K, CKMB, HS TROP #### [facility] [address] [place] [id number] [facility] ECG 12 lead ECGon 10-05-2021 ECG 12 lead ECG [facility] Main [place] 1111 [place] [address] Electrocardiograph Report Signed Patient: Rupa Gutierrez MR#: [id number] 1723 : 1940 Acct:[id number] Age/Sex: 80 / F ADM Date: 10/04/21 Loc: Room: [address] [place] [address] Type: DIS IN Attending Dr: Torrie Ruano [...] MUS Signed By Yolanda Marino DO 10/05 9112 [facility] Glucose Poct Glucometerson 0 10-05-2021 Glucose [Mass/Vol] 355 mg/dL Normal [facility] Comment on above: Result Comment: [place] Glucose Reference Range is dependent on time and content of last meal. Glucose of more than 200 mg/dL in a nonstressed, ambulatory subject supports the diagnosis of Diabetes Mellitus. PERFORMED BY: [place] [address] PATHOLOGIST FIELD SEISMOLOGIST NATHALIE VIEIRA M.D. Performed By: #### C K, CKMB, HS TROP #### [place] [address] [place] Commemt1 Glu2: Cleaned Meter [facility] Comment on above: Result Comment: PERF ORMED BY: [place] [address] PATHOLOGIST FIELD SEISMOLOGIST NATHALIE VIEIRA M.D. Performed By: #### C K, CKMB, HS TROP #### [place] [address] [place] Glucose [Mass/Vol] 313 mg/dL Normal [facility] Comment on above: Result Comment: [place] om Glucose Reference Range is dependent on time and content of last meal. Glucose of more than 200 mg/dL in a nonstressed, ambulatory subject supports the diagnosis of Diabetes Mellitus. Performed By: #### C K, CKMB, HS TROP #### [place] [address] [place] Commemt1 Glu2: Cleaned Meter [facility] Comment on above: Result Comment: PERF ORMED BY: [place] [address] PATHOLOGIST FIELD SEISMOLOGIST NATHALIE VIEIRA M.D. Performed By: #### C K, CKMB, HS TROP #### [place] [address] [place] Glucose [Mass/Vol] 187 mg/dL Normal [facility] Comment on above: Result Comment: [place] om Glucose Reference Range is dependent on time and content of last meal. Glucose of more than 200 mg/dL in a nonstressed, ambulatory subject supports the diagnosis of Diabetes Mellitus. Performed By: #### C K, CKMB, HS TROP #### [place] [address] [place] Glucose [Mass/Vol] 130 mg/dL Normal [facility] Comment on above: Result Comment: [place] om Glucose Reference Range is dependent on time and content of last meal. Glucose of more than 200 mg/dL in a nonstressed, ambulatory subject supports the diagnosis of Diabetes Mellitus. PERFORMED BY: [place] [address] PATHOLOGIST FIELD SEISMOLOGIST NATHALIE VIEIRA M.D. Performed By: #### C K, CKMB, HS TROP #### [address] Glucose [Mass/Vol] 120 mg/dL Normal [facility] Comment on above: Result Comment: [place] om Glucose Reference Range is dependent on time and content of last meal. Glucose of more than 200 mg/dL in a nonstressed, ambulatory subject supports the diagnosis of Diabetes Mellitus. PERFORMED BY: [place] [address] PATHOLOGIST FIELD SEISMOLOGIST NATHALIE VIEIRA M.D. Performed By: #### C BC, CMP, PT, PTT #### [address] Lipid Panelon 10-05-2021 Cholesterol [Mass/Vol] 160 mg/dL Normal 140-200 [facility] Comment on above: Result Comment: Chol less than 200 mg/dl low risk Chol 201-239 mg/dl borderline risk Chol 240 mg/dl and greater high risk Performed By: #### C BC, CMP, PT, PTT #### [address] Cholesterol in HDL [Mass/Vol] 37 mg/dL Normal 35-85 Comment on above: Result Comment: HDL CHOL ATP-III CLASSIFICATION Cardiovascular Risk HDL > or equal to 60 mg/dL LOW HDL < 40 mg/dL HIGH Performed By: #### C BC, CMP, PT, PTT #### [address] Cholesterol.total/Chol esterol in HDL [Mass ratio] 4.3 {ratio} Normal <5.0 Comment on above: Result Comment: PERF ORMED BY: [place] [id number] PATHOLOGIST FIELD SEISMOLOGIST NATHALIE VIEIRA M.D. Performed By: #### C BC, CMP, PT, PTT #### [facility] [address] LDL Cholesterol,Calculated 99 mg/dL Normal 0-100 Comment on above: Result Comment: LDL ATP III CLASSIFICATION LDL less than 100 mg/dL Optimal LDL 100-129 mg/dL Near or above optimal LDL 130-159 mg/dL Borderline high LDL 160-189 mg/dL High LDL greater than 189 mg/dL Very high Performed By: #### C BC, CMP, PT, PTT #### [facility] [address] Triglyceride w/Reflex 119 mg/dL Normal 35-149 [facility] Comment on above: Result Comment: TRIG ATP III CLASSIFICATION TRIG less than 150 mg/dL Normal TRIG 150-199 mg/dL Borderline high TRIG 200-500 mg/dL High TRIG greater than 500 mg/dL Very high Standard traceable to the Center for Disease Conrtrol and Prevention (CDC) test method. Performed By: #### C BC, CMP, PT, PTT #### [facility] [address] VLDL CHOLESTEROL 23 mg/dL Normal [facility] Comment on above: Performed By: #### C BC, CMP, PT, PTT #### [facility] [address] Magnesiumon 10-05-2021 Magnesium [Mass/Vol] 1.8 mg/dL Normal 1.6-2.6 [facility] Comment on above: Performed By: #### C BC, CMP, PT, PTT #### [facility] [address] Partial Thromboplastin Timeo n 10-05-2021 aPTT Coag (Bld) [Time] 65.5 s High 25.1-36.5 [facility] Comment on above: Order Comment: List the anticoagulant: HEPARIN, UNFRACTIONATED Result Comment: PERF ORMED BY: [place] [address] PATHOLOGIST FIELD SEISMOLOGIST NATHALIE VIEIRA M.D. Performed By: #### C K, CKMB, HS TROP #### [address] aPTT Coag (Bld) [Time] 63.0 s High 25.1-36.5 [facility] Comment on above: Order Comment: List the anticoagulant: HEPARIN, UNFRACTIONATED Result Comment: PERF ORMED BY: [place] [address] PATHOLOGIST FIELD SEISMOLOGIST NATHALIE VIEIRA M.D. Performed By: #### C K, CKMB, HS TROP #### [address] Partial Thromboplastin Time Normal 25.1-36.5 Comment on above: Result Comment: PT S TILL RECEIVING HEPARIN. PLEASE COLLECT AT 10AM PER RN DUKE CULLEN PERFORMED BY: [place] [address] PATHOLOGIST FIELD SEISMOLOGIST NATHALIE VIEIRA M.D. Performed By: #### C K, CKMB, HS TROP #### [address] aPTT Coag (Bld) [Time] 51.9 s High 25.1-36.5 [facility] Comment on above: Order Comment: List the anticoagulant: HEPARIN, UNFRACTIONATED Result Comment: PERF ORMED BY: [place] [address] PATHOLOGIST FIELD SEISMOLOGIST NATHALIE VIEIRA M.D. Performed By: #### C K, CKMB, HS TROP #### [facility] [address] [place] [address] [place] Prothrombin Time INRon 10-05 INR Coag (PPP) [Relative time] 1.1 {INR} Normal Comment on above: Result Comment: INR Therapeutic [...] #### C K, CKMB, HS TROP #### [facility] [address] PT Coag (PPP) [Time] 12.6 s Normal 9.0-12.9 [facility] Comment on above: Performed By: #### C K, CKMB, HS TROP #### [facility] [address] Troponin I High Sensitivityo n 10-05-2021 Troponin I High Sensitivity 314 pg/mL Off scale high 0-15 Comment on above: Result Comment: Resu lts called at 0738 on 10/05/21 PERFORMED BY: [place] [address] PATHOLOGIST FIELD SEISMOLOGIST NATHALIE VIEIRA M.D. Performed By: #### C K, CKMB, HS TROP #### [address] A1C with Estimated Average G luon 10-04-2021 Glucose [Mass/Vol] 235 mg/dL Normal [facility] Comment on above: Result Comment: PERF ORMED BY: [place] [address] PATHOLOGIST FIELD SEISMOLOGIST NATHALIE VIEIRA M.D. Performed By: #### C K, CKMB, HS TROP #### [address] HbA1c (Bld) [Mass fraction] 9.8 % High 4.3-5.6 Comment on above: Result Comment: Incr eased risk for diabetes: 5.7 - 6.4 diabetes: >6.4 glycemic control for adults with diabetes: <7.0 Performed By: #### C K, CKMB, HS TROP #### [address] Complete Blood Count Auto Di ffon 10-04-2021 Basophils (Bld) [#/Vol] 0.1 10*3/uL Normal 0.0-0.2 Comment on above: Result Comment: PERF ORMED BY: [place] [address] PATHOLOGIST FIELD SEISMOLOGIST NATHALIE VIEIRA M.D. Performed By: #### C BC, CMP, PT, PTT #### [address] Basophils/100 WBC (Bld) 0.5 % Normal . Comment on above: Performed By: #### C BC, CMP, PT, PTT #### [address] Eosinophils (Bld) [#/Vol] 0.2 10*3/uL Normal 0.0-0.45 Comment on above: Performed By: #### C BC, CMP, PT, PTT #### [address] Eosinophils/100 WBC (Bld) 1.6 % Normal . Comment on above: Performed By: #### C BC, CMP, PT, PTT #### [address] Erythrocyte distribution width (RBC) [Ratio] 13.1 % Normal 11.9-15.3 Comment on above: Performed By: #### C BC, CMP, PT, PTT #### [address] Hematocrit (Bld) [Volume fraction] 38.6 % Normal 34.0-46.4 Comment on above: Performed By: #### C BC, CMP, PT, PTT #### [address] Hemoglobin (Bld) [Mass/Vol] 12.5 g/dL Normal 11.8-15.4 Comment on above: Performed By: #### C BC, CMP, PT, PTT #### [place] [id number] [place] Lymphocytes (Bld) [#/Vol] 1.3 10*3/uL Normal 1.00-4.8 Comment on above: Performed By: #### C BC, CMP, PT, PTT #### [address] Lymphocytes/100 WBC (Bld) 12.0 % Normal . Comment on above: Performed By: #### C BC, CMP, PT, PTT #### [address] MCH (RBC) [Entitic mass] 29.0 pg Normal 24.7-34.3 Comment on above: Performed By: #### C BC, CMP, PT, PTT #### [address] MCV (RBC) [Entitic vol] 89.2 fL Normal 80-100 Comment on above: Performed By: #### C BC, CMP, PT, PTT #### [address] Mean Corpuscular HGB Conc 32.5 g/dL Normal 32.0-35.0 Comment on above: Performed By: #### C BC, CMP, PT, PTT #### [address] Monocytes (Bld) [#/Vol] 1.2 10*3/uL High 0.0-0.8 Comment on above: Performed By: #### C BC, CMP, PT, PTT #### [place] [address] [place] Monocytes/100 WBC (Bld) 11.0 % Normal . Comment on above: Performed By: #### C BC, CMP, PT, PTT #### [address] Neutrophils (Bld) [#/Vol] 8.4 10*3/uL High 1.8-7.7 Comment on above: Performed By: #### C BC, CMP, PT, PTT #### [facility] [address] Neutrophils/100 WBC (Bld) 74.9 % Normal . Comment on above: Performed By: #### C BC, CMP, PT, PTT #### [facility] [address] Nucleated RBC/100 WBC (Bld) [Ratio] 0.0 % Normal 0-0.5 Comment on above: Performed By: #### C BC, CMP, PT, PTT #### [address] Platelet mean volume (Bld) [Entitic vol] 7.7 fL Normal 6.3-10.7 Comment on above: Performed By: #### C BC, CMP, PT, PTT #### [address] Platelets (Bld) [#/Vol] 269 10*3/uL Normal 150-450 Comment on above: Performed By: #### C BC, CMP, PT, PTT #### [address] RBC (Bld) [#/Vol] 4.32 10*6/uL Normal 3.60-5.00 [facility] Comment on above: Performed By: #### C BC, CMP, PT, PTT #### [address] WBC (Bld) [#/Vol] 11.1 10*3/uL High 4.5-11.0 [facility] Comment on above: Performed By: #### C BC, CMP, PT, PTT #### [address] Comprehensive Metabolic Pane josé luis 10-04-2021 Albumin [Mass/Vol] 3.5 g/dL Normal 3.2-5.5 [facility] Comment on above: Performed By: #### C BC, CMP, PT, PTT #### [facility] 1111 [place] [address] [place] Albumin/Globulin [Mass ratio] 1.1 {ratio} Normal Comment on above: Performed By: #### C BC, CMP, PT, PTT #### [facility] [address] ALP [Catalytic activity/Vol] 62 U/L Normal 32-92 Comment on above: Performed By: #### C BC, CMP, PT, PTT #### [facility] [address] ALT [Catalytic activity/Vol] 10 U/L Normal 10-60 Comment on above: Performed By: #### C BC, CMP, PT, PTT #### [facility] [address] AST [Catalytic activity/Vol] 12 U/L Normal 10-42 Comment on above: Performed By: #### C BC, CMP, PT, PTT #### [facility] 1[address] [place] [address] [place] Bilirubin [Mass/Vol] 0.7 mg/dL Normal 0.3-1.2 [facility] Comment on above: Performed By: #### C BC, CMP, PT, PTT #### [place] [address] [place] Calcium [Mass/Vol] 9.1 mg/dL Normal 8.2-10.2 [facility] Comment on above: Performed By: #### C BC, CMP, PT, PTT #### [facility] 1[address] [place] [address] [place] Chloride [Moles/Vol] 98 mmol/L Normal 95-114 [facility] Comment on above: Performed By: #### C BC, CMP, PT, PTT #### [facility] 1[address] [place] [address] [place] CO2 [Moles/Vol] 29.0 mmol/L Normal 22.0-30.0 [facility] Comment on above: Performed By: #### C BC, CMP, PT, PTT #### [facility] [address] Creatinine [Mass/Vol] 1.39 mg/dL High 0.44-1.03 [facility] Comment on above: Performed By: #### C BC, CMP, PT, PTT #### [address] Creatinine Clr Calc Pharmacy 36.54 [facility] Comment on above: Result Comment: PERF ORMED BY: [place] [address] PATHOLOGIST FIELD SEISMOLOGIST NATHALIE VIEIRA M.D. Performed By: #### C BC, CMP, PT, PTT #### [address] Estimated GFR ( Berta 44 [facility] Comment on above: Result Comment: GFR estimated reference range: According to KDOQI guidelines, <60 ml/min/1.73m2 is sufficient to diagnose a patient with chronic kidney disease. Performed By: #### C BC, CMP, PT, PTT #### [address] Estimated GFR (Non- Am 36 [facility] Comment on above: Performed By: #### C BC, CMP, PT, PTT #### [address] Globulin (S) [Mass/Vol] 3.1 g/dL [facility] Comment on above: Performed By: #### C BC, CMP, PT, PTT #### [address] Glucose [Mass/Vol] 199 mg/dL High 70-100 [facility] Comment on above: Result Comment: [place] om Glucose Reference Range is dependent on time and content of last meal. Glucose of more than 200 mg/dL in a nonstressed, ambulatory subject supports the diagnosis of Diabetes Mellitus. ADA recommended reference range Performed By: #### C BC, CMP, PT, PTT #### [address] Potassium [Moles/Vol] 4.0 mmol/L Normal 3.5-5.1 [facility] Comment on above: Performed By: #### C BC, CMP, PT, PTT #### [facility] [address] Protein [Mass/Vol] 6.6 g/dL Normal 6.1-7.9 [facility] Comment on above: Performed By: #### C BC, CMP, PT, PTT #### [facility] [address] Sodium [Moles/Vol] 137 mmol/L Normal 136-146 [facility] Comment on above: Performed By: #### C BC, CMP, PT, PTT #### [address] Urea nitrogen [Mass/Vol] 18 mg/dL Normal 9-23 Comment on above: Performed By: #### C BC, CMP, PT, PTT #### [address] Creatine Kinaseon 10-04-2021 CK [Catalytic activity/Vol] 51 U/L Normal 22-269 Comment on above: Performed By: #### C K, CKMB, HS TROP #### [address] CK [Catalytic activity/Vol] 45 U/L Normal 22-269 Comment on above: Performed By: #### C K, CKMB, HS TROP #### [address] CK [Catalytic activity/Vol] 45 U/L Normal 22-269 Comment on above: Performed By: #### C K, CKMB, HS TROP #### [place] [address] [place] Creatinine Kinase MBon 10-04 CK.MB [Mass/Vol] 2.1 ng/mL Normal 0.6-6.3 [facility] Comment on above: Performed By: #### C K, CKMB, HS TROP #### [address] [place] [address] [place] CKMB Relative Index 4.1 % High 0.00-2.50 [facility] Comment on above: Performed By: #### C K, CKMB, HS TROP #### [facility] [address] [place] [address] CK.MB [Mass/Vol] 2.4 ng/mL Normal 0.6-6.3 [facility] Comment on above: Performed By: #### C K, CKMB, HS TROP #### [facility] [address] [place] [address] CKMB Relative Index 5.3 % High 0.00-2.50 [facility] Comment on above: Performed By: #### C K, CKMB, HS TROP #### [address] CK.MB [Mass/Vol] 2.3 ng/mL Normal 0.6-6.3 [facility] Comment on above: Performed By: #### C K, CKMB, HS TROP #### [facility] [address] [place] [address] CKMB Relative Index 5.1 % High 0.00-2.50 [facility] Comment on above: Performed By: #### C K, CKMB, HS TROP #### [address] ECG 12 lead ECGon 10-04-2021 ECG 12 lead ECG [facility] [place] [address] Electrocardiograph Report Signed Patient: Rupa Gutierrez MR#: [id number] 1723 : 1940 Acct:[id number] Age/Sex: 80 / F ADM Date: 10/04/21 Loc: Room: [address] [place] [address] Type: DIS IN Attending Dr: Torrie Ruano [...] MUS Signed By Yolanda Marino DO 10/04 184 Normal [facility] echo transthoracicon [facility] echo transthoracic [facility] [place] [address] Echocardiogram Signed Patient: Rupa Gutierrez MR#: [id number] 1723 : 1940 Acct:[id number] Age/Sex: 80 / F ADM Date: 10/04/21 Loc: Room: [address] [place] [address] Type: DIS IN Attending Dr: Torrie Ruano MD Ordering Provider: Edgar Friend DO Date of Service: 10/04/21 [facility] echo transthoracic: dyspnea, suspect new CHF [...] mmHg RAP systole: 5.0 mmHg Transcribed By: STELLA Performed At: 10/04/21 0716 Signed By: Sunitha Nathan MD 10/04/21 0928 Normal Free T4 (Free Thyroxine)on 0 10-04-2021 Free T4 [Mass/Vol] 0.88 ng/dL Normal 0.61-1.12 [facility] Comment on above: Performed By: #### C K, CKMB, HS TROP #### [facility] [address] [place] [id number] [place] Glucose Poct Glucometerson 0 10-04-2021 Commemt1 Glu2: Cleaned Meter Normal [facility] Comment on above: Result Comment: PERF ORMED BY: [place] [address] PATHOLOGIST FIELD SEISMOLOGIST NATHALIE VIEIRA M.D. Performed By: #### C K, CKMB, HS TROP #### [place] [id number] [place] Glucose [Mass/Vol] 363 mg/dL Normal [facility] Comment on above: Result Comment: [place] om Glucose Reference Range is dependent on time and content of last meal. Glucose of more than 200 mg/dL in a nonstressed, ambulatory subject supports the diagnosis of Diabetes Mellitus. Performed By: #### C K, CKMB, HS TROP #### [address] [address] [place] Glucose [Mass/Vol] 273 mg/dL Normal [facility] Comment on above: Result Comment: [place] om Glucose Reference Range is dependent on time and content of last meal. Glucose of more than 200 mg/dL in a nonstressed, ambulatory subject supports the diagnosis of Diabetes Mellitus. PERFORMED BY: [place] [address] PATHOLOGIST FIELD SEISMOLOGIST NATHALIE VIEIRA M.D. Performed By: #### C K, CKMB, HS TROP #### [facility] [address] [place] [address] [place] Glucose [Mass/Vol] 228 mg/dL Normal [facility] Comment on above: Result Comment: [place] om Glucose Reference Range is dependent on time and content of last meal. Glucose of more than 200 mg/dL in a nonstressed, ambulatory subject supports the diagnosis of Diabetes Mellitus. PERFORMED BY: [place] [id number] PATHOLOGIST FIELD SEISMOLOGIST NATHALIE VIEIRA M.D. Performed By: #### C K, CKMB, HS TROP #### [facility] [address] [place] [address] [place] Partial Thromboplastin Timeo n 10-04-2021 aPTT Coag (Bld) [Time] 58.7 s High 25.1-36.5 [facility] Comment on above: Result Comment: PERF ORMED BY: [place] [address] PATHOLOGIST FIELD SEISMOLOGIST NATHALIE VIEIRA M.D. Performed By: #### P TT #### [facility] [address] [place] [address] aPTT Coag (Bld) [Time] 48.5 s High 25.1-36.5 [facility] Comment on above: Result Comment: PERF ORMED BY: [place] [address] PATHOLOGIST FIELD SEISMOLOGIST NATHALIE VIEIRA M.D. Performed By: #### C K, CKMB, HS TROP #### [address] aPTT Coag (Bld) [Time] 37.1 s High 25.1-36.5 [facility] Comment on above: Result Comment: PERF ORMED BY: [place] [address] PATHOLOGIST FIELD SEISMOLOGIST NATHALIE VIEIRA M.D. Performed By: #### C BC, CMP, PT, PTT #### [facility] [address] [place] [address] Prothrombin Time INRon 10-04 INR Coag (PPP) [Relative time] 1.1 {INR} Normal Comment on above: Result Comment: INR Therapeutic [...] #### C BC, CMP, PT, PTT #### [address] PT Coag (PPP) [Time] 12.1 s Normal 9.0-12.9 [facility] Comment on above: Performed By: #### C BC, CMP, PT, PTT #### [address] Thyroid Stimulating Hormoneo n 10-04-2021 TSH Qn 3.02 m[IU]/L Normal 0.45-5.33 Comment on above: Result Comment: PERF ORMED BY: [place] [address] PATHOLOGIST FIELD SEISMOLOGIST NATHALIE VIEIRA M.D. Performed By: #### C BC, CMP, PT, PTT #### [address] [address] Thyroxine (T4) Totalon 10-04 T4 [Mass/Vol] 9.18 ug/dL Normal 5.39-11.82 Comment on above: Performed By: #### C BC, CMP, PT, PTT #### [address] Troponin I High Sensitivityo n 10-04-2021 Troponin I High Sensitivity 288 pg/mL Off scale high 0-15 Comment on above: Result Comment: Resu lts called at 1407 on 10/04/21 PERFORMED BY: [place] [address] PATHOLOGIST FIELD SEISMOLOGIST NATHALIE VIEIRA M.D. Performed By: #### C K, CKMB, HS TROP #### [address] Troponin I High Sensitivity 350 pg/mL Off scale high 0-15 Comment on above: Result Comment: Resu lts called at 1117 on 10/04/21 PERFORMED BY: [place] [id number] PATHOLOGIST FIELD SEISMOLOGIST NATHALIE VIEIRA M.D. Performed By: #### C K, CKMB, HS TROP #### [facility] [address] [id number] [facility] Troponin I High Sensitivity 371 pg/mL Off scale high 0-15 Comment on above: Result Comment: Resu lts called at 0749 on 10/04/21 PERFORMED BY: [place] [address] PATHOLOGIST FIELD SEISMOLOGIST NATHALIE VIEIRA M.D. Performed By: #### C K, CKMB, HS TROP #### [facility] [address] [id number] [facility] Vital Signs Date Time Vital Sign Value Performing Clinician Kindra stringer 12-31-2024 15:00-0400 Body temperature 97.5 [degF] Freddy Светланаh SUPERVISOR REWORK-FREELANCE COURT REPORTER Work Phone: [facility] 12-31-2024 15:00-0400 Diastolic blood pressure 79 mm[Hg] Freddy Manzo SUPERVISOR REWORK-FREELANCE COURT REPORTER Work Phone: [facility] 12-31-2024 15:00-0400 Heart rate 90 /min Freddy Manzo SUPERVISOR REWORK-FREELANCE COURT REPORTER Work Phone: [facility] 12-31-2024 15:00-0400 Respiratory rate 18 /min Freddy Alvin SUPERVISOR REWORK-FREELANCE COURT REPORTER Work Phone: [facility] 12-31-2024 15:00-0400 Systolic blood pressure 147 mm[Hg] Freddy Manzo SUPERVISOR REWORK-FREELANCE COURT REPORTER Work Phone: [facility] 12-24-2024 11:34-0400 Body height 149.9 cm Claudia Taylor MD Work Phone: [facility] 12-24-2024 11:34-0400 Body mass index (BMI) [Ratio] 43.63 kg/m2 Claudia Taylor MD Work Phone: [facility] 12-24-2024 11:34-0400 Body weight 97.98 kg Claudia Taylor MD Work Phone: [facility] 12-24-2024 11:34-0400 Diastolic blood pressure 51 mm[Hg] Claudia Taylor MD Work Phone: [facility] 12-24-2024 11:34-0400 Heart rate 96 /min Claudia Taylor MD Work Phone: [facility] 12-24-2024 11:34-0400 Systolic blood pressure 109 mm[Hg] Claudia Taylor MD Work Phone: [facility] 11-18-2024 13:24-0400 Body temperature 98.01 [degF] Codie March SUPERVISOR REWORK-FREELANCE COURT REPORTER Work Phone: [facility] 11-18-2024 13:24-0400 Diastolic blood pressure 57 mm[Hg] Codie March SUPERVISOR REWORK-FREELANCE [employer] REPORTER Work Phone: [facility] 11-18-2024 13:24-0400 Heart rate 96 /min Codie March SUPERVISOR REWORK-FREELANCE [employer] REPORTER Work Phone: [facility] 11-18-2024 13:24-0400 Respiratory rate 18 /min Codie March SUPERVISOR REWORK-FREELANCE [employer] REPORTER Work Phone: [facility] 11-18-2024 13:24-0400 Systolic blood pressure 103 mm[Hg] Codie March SUPERVISOR REWORK-FREELANCE COURT REPORTER Work Phone: [facility] 11-14-2024 06:25-0400 Body mass index (BMI) [Ratio] 43.69 kg/m2 Steven Mercado MD Work Phone: [facility] 11-14-2024 06:25-0400 Body weight 98.11 kg Steven Mercado MD Work Phone: [facility] 11-14-2024 04:28-0400 Body temperature 98.4 [degF] Steven Mercado MD Work Phone: [facility] 11-14-2024 04:28-0400 Diastolic blood pressure 53 mm[Hg] Steven Mercado MD Work Phone: [facility] 11-14-2024 04:28-0400 Heart rate 113 /min Steven Mercado MD Work Phone: [facility] 11-14-2024 04:28-0400 Respiratory rate 20 /min Steven Mercado MD Work Phone: [facility] 11-14-2024 04:28-0400 SaO2% (BldA) [Mass fraction] 94 % Steven Mercado MD Work Phone: [facility] 11-14-2024 04:28-0400 Systolic blood pressure 134 mm[Hg] Steven Mercado MD Work Phone: [facility] 11-08-2024 17:36-0400 Body height 149.9 cm Steven Mercado MD Work Phone: [facility] 10-13-2024 11:00-0400 Body temperature 97.9 [degF] Codie March SUPERVISOR REWORK-FREELANCE COURT REPORTER Work Phone: [facility] 10-13-2024 11:00-0400 Diastolic blood pressure 77 mm[Hg] Codie Anca SUPERVISOR REWORK-FREELANCE COURT REPORTER Work Phone: [facility] 10-13-2024 11:00-0400 Heart rate 90 /min Codie March SUPERVISOR REWORK-FREELANCE [employer] REPORTER Work Phone: [facility] 10-13-2024 11:00-0400 Respiratory rate 18 /min Codie March SUPERVISOR REWORK-FREELANCE [employer] REPORTER Work Phone: [facility] 10-13-2024 11:00-0400 Systolic blood pressure 118 mm[Hg] Codie March SUPERVISOR REWORK-FREELANCE COURT REPORTER Work Phone: [facility] 09-11-2024 10:50-0400 Body height 152.4 cm Amado Montoya MD Work Phone: [facility] 09-11-2024 10:50-0400 Diastolic blood pressure 62 mm[Hg] Amado Montoya MD Work Phone: [facility] 09-11-2024 10:50-0400 Heart rate 108 /min Amado Montoya MD Work Phone: [facility] 09-11-2024 10:50-0400 SaO2% (BldA) [Mass fraction] 98 % Amado Montoya MD Work Phone: [facility] 09-11-2024 10:50-0400 Systolic blood pressure 118 mm[Hg] Amado Montoya MD Work Phone: [facility] 02-18-2024 15:21-0400 Body height 149.9 cm Jaclyn Potts DPM Work Phone: [facility] 02-18-2024 15:21-0400 Body mass index (BMI) [Ratio] 38.38 kg/m2 Jaclyn Potts DPM Work Phone: [facility] 02-18-2024 15:21-0400 Body weight 86.18 kg Jaclyn Potts DPM Work Phone: [facility] 02-14-2024 12:31-0400 Body height 147.3 cm Pam Oberneder SUPERVISOR REWORK-FREELANCE COURT REPORTER Work Phone: [facility] 02-14-2024 12:31-0400 Body mass index (BMI) [Ratio] 48.07 kg/m2 Pam Oberneder SUPERVISOR REWORK-FREELANCE COURT REPORTER Work Phone: [facility] 02-14-2024 12:31-0400 Body weight 104.33 kg Pam Oberneder SUPERVISOR REWORK-FREELANCE [employer] REPORTER Work Phone: [facility] 02-14-2024 12:31-0400 Diastolic blood pressure 78 mm[Hg] Pam Brothers SUPERVISOR REWORK-FREELANCE COURT REPORTER Work Phone: [facility] 02-14-2024 12:31-0400 Systolic blood pressure 137 mm[Hg] Pam Brothers SUPERVISOR REWORK-FREELANCE COURT REPORTER Work Phone: [facility] 07-24-2023 10:43-0500 Body height 149.9 cm Jaclyn Potts DPM Work Phone: [facility] 07-24-2023 10:43-0500 Body mass index (BMI) [Ratio] 38.38 kg/m2 Jaclyn Potts DPM Work Phone: [facility] 07-24-2023 10:43-0500 Body weight 86.18 kg Jaclyn Potts DPM Work Phone: [facility] Healthcare Encounters Encounter Date Encounter Type Care Provider Facility Start: 02-23-2025 End: 02-23-2025 Refill Pam Brothers SUPERVISOR REWORK-FREELANCE COURT REPORTER Work Phone: [facility] Start: 02-04-2025 End: 02-04-2025 ambulatory STEVEN ESQUEDA [facility] Start: 01-29-2025 End: 01-29-2025 Clinisync Result Encounter Jose Rogers MD Work Phone: [facility] External Department Unsolicited Start: 01-29-2025 End: 01-29-2025 Clinisync Result Encounter Jose Rogers MD Work Phone: [facility] External Department Unsolicited Start: 01-23-2025 End: 01-23-2025 ambulatory WILBER WEBSTER [facility] Start: 01-18-2025 End: 01-18-2025 Documentation procedure Jaclyn Potts DPM Work Phone: [facility] Start: 01-13-2025 End: 01-20-2025 Evaluation and management of inpatient [facility] Start: 01-04-2025 End: 01-04-2025 Telephone encounter Geeta Bhatia [facility] Start: 12-31-2024 End: 12-31-2024 Office outpatient visit 10 minutes Codie March APRN-FREELANCE COURT REPORTER Work Phone: [facility] Comment on above: Non-pressure ulcer o f lower extremity with fat layer exposed, right (CMS-HCC) (Primary Dx); Pressure injury of right heel, unstageable (CMS-HCC); Venous stasis ulcer of left lower leg with edema of left lower leg (CMS-HCC); Lymphorrhea; 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 ([facility]-HCC) Start: 12-31-2024 End: 12-31-2024 ambulatory FRED[facility] Start: 12-25-2024 End: 12-29-2024 Telephone encounter Claudia Taylor MD Work Phone: [facility] Start: 12-24-2024 End: 12-24-2024 Office outpatient visit 25 minutes Claudia Taylor MD Work Phone: [facility] Comment on above: Stage 3b chronic kid gely disease ([facility]-HCC) (Primary Dx) Start: 12-17-2024 End: 12-17-2024 ambulatory SURJIT Colbert [facility] Start: 12-16-2024 End: 12-16-2024 Telephone encounter Huong Sánchez CMA [facility] Start: 12-04-2024 End: 12-04-2024 ambulatory TERRENCE LANDONMAD [facility] Start: 12-01-2024 End: 12-01-2024 ambulatory [facility] Start: 11-30-2024 End: 11-30-2024 ambulatory [facility] Start: 11-30-2024 End: 12-03-2024 Evaluation and management of inpatient ANGELINE [facility] Start: 11-18-2024 End: 11-18-2024 Patient encounter procedure Codie March SUPERVISOR REWORK-FREELANCE COURT REPORTER Work Phone: [facility] Comment on above: Lymphedema (Primary Dx); Lymphorrhea; Pressure injury of right heel, unstageable ([facility]-HCC); Non-pressure ulcer of lower extremity with fat layer exposed, right ([facility]-HCC); Venous stasis ulcer of left lower leg with edema of left lower leg ([facility]-HCC) Start: 11-18-2024 End: 11-18-2024 ambulatory CODIE ELLIOTTEY [facility] Start: 11-18-2024 End: 11-18-2024 ambulatory STEVEN MERCADO [facility] Start: 11-16-2024 End: 11-16-2024 Orders Only Durga WHITLEY [facility] Comment on above: CKD (chronic kidney disease) stage 2, GFR 60-89 ml/min (Primary Dx) Start: 11-10-2024 End: 11-10-2024 Documentation procedure Janet Ordaz [facility] Start: 11-08-2024 End: 11-14-2024 Evaluation and management of inpatient Dylan Kirby DO Work Phone: [facility] Start: 10-23-2024 End: 10-27-2024 Evaluation and management of inpatient ANGELINE [facility] Start: 10-19-2024 End: 10-19-2024 [facility] Start: 10-14-2024 End: 10-14-2024 Telephone encounter Codie Rodrigues RN [facility] Comment on above: Care Navigation Start: 10-13-2024 End: 10-13-2024 Office outpatient new 20 minutes Codie March SUPERVISOR REWORK-FREELANCE COURT REPORTER Work Phone: [facility] Comment on above: Lymphedema (Primary Dx); Lymphorrhea Start: 10-13-2024 End: 10-13-2024 [facility] Start: 10-08-2024 End: 10-08-2024 ambulatory [facility] Start: 09-11-2024 End: 09-11-2024 Office outpatient visit 25 minutes Amado Montoya MD Work Phone: [facility] Comment on above: Essential hypertensi on (Primary Dx); Preop cardiovascular exam Start: 09-11-2024 End: 09-11-2024 Patient encounter status Amado Montoya MD Work Phone: [facility] Start: 09-11-2024 End: 09-11-2024 ambulatory AMADO MONTOYA [facility] Start: 09-11-2024 End: 09-11-2024 ambulatory [facility] Start: 09-11-2024 Encounter for other preprocedural examination [facility] Start: 09-10-2024 End: 09-10-2024 Telephone encounter Julianne Fuentes [facility] Start: 09-09-2024 End: 09-09-2024 Telephone encounter Zulema Moseley LPN [facility] Start: 09-07-2024 End: 09-07-2024 ambulatory [facility] Start: 09-07-2024 End: 09-07-2024 ambulatory [facility] Start: 09-07-2024 Encounter for other preprocedural examination PAM [facility] Start: 09-02-2024 End: 09-02-2024 Emergency department patient visit [facility] Start: 08-30-2024 End: 08-30-2024 Emergency department patient visit CHAN [facility] Start: 08-17-2024 End: 08-18-2024 Refill Pam Brothers SUPERVISOR REWORK-FREELANCE COURT REPORTER Work Phone: [facility] Start: 07-31-2024 End: 07-31-2024 Telephone encounter Zulema Moseley LPN [facility] Start: 07-08-2024 End: 07-08-2024 Office outpatient visit 25 minutes Will Enamorado MD Work Phone: [facility] Comment on above: Type 2 diabetes [...] 04-19-2024 Refill Will Enamorado MD Work Phone: [facility] Comment on above: 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) Start: 03-11-2024 End: 03-11-2024 Refill Pam Brothers APRN-FREELANCE COURT REPORTER Work Phone: [facility] Start: 02-18-2024 End: 02-18-2024 Patient encounter procedure Jaclyn Potts DPM Work Phone: [facility] Comment on above: Dermatophytosis of n ail (Primary Dx); Dystrophic nail; Type II diabetes mellitus with peripheral circulatory disorder (CMS/HCC); Diabetic polyneuropathy associated with type 2 diabetes mellitus (CMS/HCC); Encounter for long-term (current) use of insulin (CMS/HCC) Start: 02-18-2024 End: 02-18-2024 ambulatory JACLYN POTTS Not Available Start: 02-18-2024 End: 02-18-2024 Bamboo flowsheet Jaclyn Potts DPM Work Phone: [facility] Start: 02-18-2024 End: 02-18-2024 Bamboo flowsheet Jaclyn Potts DPM Work Phone: [facility] Start: 02-14-2024 End: 02-14-2024 Office outpatient visit 25 minutes Pam R Oberneder SUPERVISOR REWORK-FREELANCE COURT REPORTER Work Phone: [facility] Comment on above: Stage 3b chronic kid gely disease ([facility]-HCC) (Primary Dx) Start: 02-07-2024 End: 02-07-2024 ambulatory PAM R OBERMICHELL [facility] Start: 12-08-2023 End: 12-09-2023 Refill Pam R Oberneder SUPERVISOR REWORK-FREELANCE COURT REPORTER Work Phone: [facility] Start: 11-09-2023 End: 11-13-2023 Refill Pam R Oberneder SUPERVISOR REWORK-FREELANCE COURT REPORTER Work Phone: [facility] Start: 11-06-2023 End: 11-06-2023 Telephone encounter Kelly Erickson [facility] Start: 09-04-2023 Telephone encounter Hussain Verde [facility] Start: 09-02-2023 End: 09-02-2023 ambulatory JACLYN POTTS Not Available Start: 08-29-2023 Telephone encounter Pam R Oberneder SUPERVISOR REWORK-FREELANCE COURT REPORTER Work Phone: [facility] Start: 08-19-2023 End: 08-19-2023 ambulatory JACLYN POTTS Not Available Start: 07-24-2023 Bamboo flowsheet Jaclyn Carpio er DPM Work Phone: [facility] Start: 07-24-2023 Bamboo flowsheet Jaclyn Carpio er DPM Work Phone: [facility] Start: 07-24-2023 End: 07-24-2023 Office outpatient visit 15 minutes Jaclyn Potts DPM Work Phone: [facility] Comment on above: Type 2 diabetes rubin itus with stage 1 decubitus ulcer of toe ([facility]/HCC) (Primary Dx); Type II diabetes mellitus with peripheral circulatory disorder ([facility]/HCC); Diabetic polyneuropathy associated with type 2 diabetes mellitus ([facility]/HCC); Encounter for long-term (current) use of insulin ([facility]) Start: 07-24-2023 End: 07-24-2023 ambulatory JACLYN POTTS Not Available Start: 09-10-[address] [place] [facility] [place] : Start: 01-15-2022 Patient encounter status Bud roverto Brothers SUPERVISOR REWORK-FREELANCE COURT REPORTER Work Phone: [employer] Start: 10-04-2021 End: 10-07-2021 Evaluation and management of inpatient Pam [facility] Facility: Procedures Date Procedure Procedure Detail Performing Clinician Start: 01-29-2025 ALL BASIC METABOLIC PANEL Jose Rogers MD Work Phone: Start: 12-31-2024 NURSING COMMUNICATION Sayra Manzo SUPERVISOR REWORK-FREELANCE COURT REPORTER Work Phone: Start: 11-18-2024 Other immobilization , pressure, and attention to wound Codie March SUPERVISOR REWORK-FREELANCE COURT REPORTER Work Phone: Start: 11-14-2024 Comprehensive metabo lic panel Miguel Douglas SUPERVISOR REWORK-FREELANCE COURT REPORTER Work Phone: Start: 11-14-2024 EXTRA TUBES Steven Mercado MD Work Phone: Start: 11-14-2024 EXTRA TUBES BLUE TOP Ja maureen Mercado MD Work Phone: Start: 11-13-2024 BEDSIDE GLUCOSE Steven Mercado MD Work Phone: Start: 11-13-2024 BEDSIDE GLUCOSE Steven Mercado MD Work Phone: Start: 11-13-2024 Potassium serum plasma/whole blood Margot Leiva SUPERVISOR REWORK-FREELANCE COURT REPORTER Work Phone: Start: 11-13-2024 BEDSIDE GLUCOSE Steven Mercado MD Work Phone: Start: 11-13-2024 Comprehensive metabo lic panel Miguel Douglas SUPERVISOR REWORK-FREELANCE [employer] REPORTER Work Phone: Start: 11-13-2024 EXTRA TUBES Steven [...] 11-12-2024 Comprehensive metabo lic panel Miguel Douglas SUPERVISOR REWORK-FREELANCE [address] REPORTER Work Phone: Start: 11-11-2024 BEDSIDE GLUCOSE Steven Mercado MD Work Phone: Start: 11-11-2024 BEDSIDE GLUCOSE Steven Mercado MD Work Phone: Start: 11-11-2024 Mri lower extrem oth /thn jt w/o contr matrl Margot Leiva SUPERVISOR REWORK-FREELANCE COURT REPORTER Work Phone: Start: 11-11-2024 BEDSIDE GLUCOSE Steven Mercado MD Work Phone: Start: 11-11-2024 C-reactive protein Miguel Douglas SUPERVISOR REWORK-FREELANCE [address] REPORTER Work Phone: Start: 11-11-2024 Comprehensive metabo lic panel Miguel Douglas SUPERVISOR REWORK-FREELANCE [address] REPORTER Work Phone: Start: 11-10-2024 End: 11-10-2024 Mri lower extrem oth/thn jt w/o contr matrl Margot Cali SUPERVISOR REWORK-FREELANCE COURT REPORTER Work Phone: Start: 11-10-2024 Drug screen quantita tive vancomycin Margot Cali SUPERVISOR REWORK-FREELANCE [employer] REPORTER Work Phone: Start: 11-10-2024 Antihuman globulin d irect each antiserum Kimberly Perez MD Work Phone: Start: 11-10-2024 Cyanocobalamin vitamin b-12 Kimberly Perez MD Work Phone: Start: 11-10-2024 End: 11-10-2024 BEDSIDE GLUCOSE Steven Duff Work Phone: Start: 11-10-2024 EXTRA TUBES Steven Mercado MD Work Phone: Start: 11-10-2024 EXTRA TUBES BLUE TOP Anibal Mercado MD Work Phone: Start: 11-10-2024 C-reactive protein Miguel Douglas SUPERVISOR REWORK-FREELANCE [address] REPORTER Work Phone: Start: 11-10-2024 Comprehensive metabo lic panel Miguel Douglas SUPERVISOR REWORK-FREELANCE [address] REPORTER Work Phone: Start: 11-09-2024 BEDSIDE GLUCOSE Steven Mercado MD Work Phone: Start: 11-09-2024 BEDSIDE GLUCOSE Steven Mercado MD Work Phone: Start: 11-09-2024 Antibody identificat ion platelet antibodies Margot Cali SUPERVISOR REWORK-FREELANCE [address] REPORTER Work Phone: Start: 11-09-2024 End: 11-09-2024 Cyanocobalamin vitamin b-12 Margot johnston SUPERVISOR REWORK-FREELANCE COURT REPORTER Work Phone: Start: 11-09-2024 BEDSIDE GLUCOSE Steven Mercado MD Work Phone: Start: 11-09-2024 Protein total xcpt refractometry urine Claudia Taylor MD Work Phone: Start: 11-09-2024 Urnls dip stick/tabl et reagent auto microscopy Claudia Taylor MD Work Phone: Start: 11-09-2024 EXTRA TUBES Zenobia Funez MD Work Phone: Start: 11-09-2024 EXTRA TUBES BLUE TOP Alvaro Funez MD Work Phone: Start: 11-09-2024 C-reactive protein Miguel Douglas SUPERVISOR REWORK-FREELANCE [employer] REPORTER Work Phone: Start: 11-09-2024 End: 11-09-2024 Comprehensive metabolic panel Miguel Douglas SUPERVISOR REWORK-FREELANCE [address] REPORTER Work Phone: Start: 11-09-2024 Assay of lactate Miguel Douglas SUPERVISOR REWORK-FREELANCE [address] REPORTER Work Phone: Start: 11-08-2024 BEDSIDE GLUCOSE Zenobia Funez MD Work Phone: Start: 11-08-2024 EXTRA TUBES Zenobia Funez MD Work Phone: Start: 11-08-2024 EXTRA TUBES PST TOP Sigrid Funez MD Work Phone: Start: 11-08-2024 Assay of lactate Miguel Douglas SUPERVISOR REWORK-FREELANCE [employer] REPORTER Work Phone: Start: 11-08-2024 BEDSIDE GLUCOSE Zenobia Funez MD Work Phone: Start: 11-08-2024 Potassium serum plasma/whole blood Dylan Kirby DO Work Phone: Start: 11-08-2024 End: 11-08-2024 Culture bacterial blood aerobic w/id isolates Dylan Kirby DO Work Phone: Start: 11-08-2024 End: 11-08-2024 Radex foot complete minimum 3 views Dylan Kirby DO Work Phone: Start: 11-08-2024 EXTRA TUBES Dylan Kirby DO Work Phone: Start: 11-08-2024 EXTRA TUBES BLUE TOP Da vid Kirby DO Work Phone: Start: 11-08-2024 C-reactive protein Franki d Kirby DO Work Phone: Start: 11-08-2024 End: 11-08-2024 Comprehensive metabolic panel Dylan [place] DO Work Phone: Plan of Treatment Date Care Activity Detail Author Start: 01-15-2026 Tobacco Screening Tobacco Screening [facility] Start: 12-24-2025 Tobacco Screening Tobacco Screening [facility] Start: 12-01-2025 Tobacco Screening Tobacco Screening [facility] Start: 11-18-2025 Tobacco Screening Tobacco Screening [facility] Start: 11-10-2025 Tobacco Screening Tobacco Screening [facility] Start: 10-13-2025 Tobacco Screening Tobacco Screening [facility] Start: 09-07-2025 Tobacco Screening Tobacco Screening [facility] Start: 04-21-2025 End: 12-19-2025 Basic metabolic 2000 panel - Serum or Plasma Basic Metabolic Panel Lab Routine Stage 3b chronic kidney disease (CMS-HCC) Expected: 04/21/2025, Expires: 12/19/2025 PHN [facility] Work Phone: Comment on above: Expected: 04/21/2025, Expires: Start: 04-21-2025 End: 12-19-2025 CBC panel - Blood by Automated count CBC without diff Lab Routine Stage 3b chronic kidney disease (CMS-HCC) Expected: 04/21/2025, Expires: 12/19/2025 [facility] Comment on above: Expected: 04/21/2025, Expires: Start: 04-21-2025 End: 12-19-2025 Magnesium [Mass/volume] in Serum or Plasma Magnesium Lab Routine Stage 3b chronic kidney disease ([facility]) Expected: 04/21/2025, Expires: 12/19/2025 [facility] Comment on above: Expected: 04/21/2025, Expires: Start: 04-21-2025 End: 12-19-2025 Parathyroid Hormone, intact Parathyroid Hormone, intact Lab Routine Stage 3b chronic kidney disease ([facility]) Expected: 04/21/2025, Expires: 12/19/2025 [facility] Comment on above: Expected: 04/21/2025, Expires: Start: 04-21-2025 End: 12-19-2025 Phosphate [Mass/volume] in Serum or Plasma Phosphorus Lab Routine Stage 3b chronic kidney disease ([facility]) Expected: 04/21/2025, Expires: 12/19/2025 [facility] Comment on above: Expected: 04/21/2025, Expires: Start: 04-21-2025 End: 12-19-2025 Protein creat ratio Protein creat ratio Lab Routine Stage 3b chronic kidney disease ([facility]) Expected: 04/21/2025, Expires: 12/19/2025 [facility] Comment on above: Expected: 04/21/2025, Expires: Start: 04-21-2025 End: 12-19-2025 Vitamin D 25 hydroxy Vitamin D 25 hydroxy Lab Routine Stage 3b chronic kidney disease ([facility]) Expected: 04/21/2025, Expires: 12/19/[address] [facility] Comment on above: Expected: 04/21/2025, Expires: Start: 02-24-2025 End: 02-24-2025 Patient encounter procedure 02/24/2025 1:00 PM EDT Office Visit [facility] [address] [place] [phone] Mena Bender PA [address] [place] [address] [facility] Start: 02-15-2025 COVID-19 Vaccine ( season) COVID-19 Vaccine ( season) [facility] Start: 02-15-2025 Influenza vaccination [facility] Start: 02-13-2025 Adult BMI Screening Adult BMI Screening [facility] Start: 01-27-2025 End: 01-27-2025 Patient encounter procedure 01/27/2025 9:00 AM EDT Office Visit [facility] [address] [place] [phone] Mena Bender PA [address] [place] [address] [facility] Start: 01-07-2025 End: 01-07-2025 Patient encounter procedure 01/07/2025 2:40 PM EDT Office Visit [facility] [address] [phone] Codie March, SUPERVISOR REWORK-FREELANCE COURT REPORTER [address] [place] [address] Vianca Winslow, SUPERVISOR REWORK-FREELANCE COURT REPORTER [address] [place] [address], [address] [place] [address] [facility] Start: 01-05-2025 End: 01-05-2025 Patient encounter procedure 01/05/2025 2:00 PM EDT Office Visit [facility] [address] [place] [phone] Mena Bender I PA [address] [place] [address] [facility] Start: 12-31-2024 End: 12-31-2024 Patient encounter procedure 12/31/2024 1:20 PM EDT Office Visit [facility] [address] [place] [address] Codie March, SUPERVISOR REWORK-FREELANCE COURT REPORTER [address] [place] [address] Freddy Manzo, SUPERVISOR REWORK-FREELANCE COURT REPORTER [address] [place] [address] [facility] Start: 12-24-2024 End: 12-24-2024 Patient encounter procedure 12/24/2024 11:00 AM EDT Office Visit [facility] [address] [place] [phone] Claudia Taylor MD [address] [place] [address] [facility] Start: 12-21-2024 End: 12-21-2024 Patient encounter procedure 12/21/2024 8:40 AM EDT Office Visit [facility] [address] [place] [address] Codie March, SUPERVISOR REWORK-FREELANCE COURT REPORTER [address] [place] [address] Freddy Manzo, SUPERVISOR REWORK-FREELANCE COURT REPORTER [address] [place] [address] [facility] Start: 12-16-2024 End: 12-16-2024 Patient encounter procedure 12/16/2024 1:20 PM EDT Office Visit [facility] [address] [place] [phone] Codie March, SUPERVISOR REWORK-FREELANCE COURT REPORTER [address] [place] [address] [facility] Start: 12-09-2024 End: 12-09-2024 Patient encounter procedure 12/09/2024 2:15 PM EDT Office Visit [facility] [address] [place] [address] [place] [phone] Mena Bender PA [address] [place] [address] [facility] Start: 11-20-2024 End: 11-13-2025 Comprehensive metabolic 2000 panel - Serum or Plasma [facility] Start: 11-20-2024 End: 05-16-2025 Magnesium [Mass/volume] in Serum or Plasma [facility] Start: 11-18-2024 End: 11-18-2024 Patient encounter procedure 11/18/2024 1:20 PM EDT Office Visit [facility] [address] [place] [phone] Codie March, SUPERVISOR REWORK-FREELANCE COURT REPORTER [address] [place] [address] [facility] Start: 11-13-2024 End: 11-13-2024 Patient encounter procedure 11/13/2024 10:00 AM EDT Office Visit [facility] [address] [place] [phone] Codie March, SUPERVISOR REWORK-FREELANCE COURT REPORTER [address] [place] [address] [facility] Start: 11-05-2024 End: 11-05-2024 Patient encounter procedure 11/05/2024 4:00 PM EDT Office Visit [facility] [address] [place] [phone] Claudia Taylor MD [address] [place] [address] [facility] Start: 10-23-2024 End: 10-23-2024 Patient encounter procedure 10/23/2024 3:00 PM EDT Office Visit [facility] [address] [place] [phone] Codie March, SUPERVISOR REWORK-[facility] [address] [place] [address] [facility] Start: 09-11-2024 End: 09-11-2024 Patient encounter procedure [facility] Start: 06-23-2024 End: 06-23-2024 Patient encounter procedure 06/23/2024 3:30 PM EST Procedure Visit [facility] [address] [facility] [place] [phone] Jaclyn Potts, FREDO [address] [place] [address] [facility] Start: 06-13-2024 Tobacco Screening Tobacco Screening [facility] Start: 02-18-2024 End: 02-18-2024 Patient encounter procedure 02/18/2024 3:30 PM EDT Procedure Visit [facility] [address] [facility] [place] [phone] Jaclyn Potts DPRylie [address] [place], [place] [phone] Arrived [facility] Comment on above: Arrived Start: 02-16-2024 COVID-19 Vaccine ( season) COVID-19 Vaccine () [facility] Start: 02-16-2024 COVID-19 Vaccine ( season) COVID-19 Vaccine ( season) [facility] Start: 02-16-2024 Influenza vaccination [facility] Start: 02-10-2024 End: 02-10-2024 Patient encounter procedure 02/10/2024 3:00 PM EDT Office Visit [facility] [place] [address] [place] [address] Pam Brothers, SUPERVISOR REWORK-FREELANCE COURT REPORTER [address] [employer] [facility], [address] [place] [address] [facility] Start: 11-07-2023 End: 11-07-2023 Patient encounter procedure 11/07/2023 1:40 PM EDT Office Visit [facility] [place] [address] [phone] Pam Brothers, SUPERVISOR REWORK-FREELANCE COURT REPORTER [employer] [facility], [address] [place] [address] [facility] Start: 11-06-2023 Adult BMI Screening Adult BMI Screening [facility] Start: 09-15-2023 Adult BMI Follow Up Plan Adult BMI Follow Up Plan [facility] Start: 09-09-2023 End: 09-09-2023 Patient encounter procedure 09/09/2023 3:20 PM EDT Office Visit [facility] [place] [address] [facility] [address] [place] [address] Pam Brothers, SUPERVISOR REWORK-FREELANCE COURT REPORTER [address] [employer] [facility], [address] [place] [address] [facility] Start: 09-02-2023 End: 09-02-2023 Patient encounter procedure 09/02/2023 3:45 PM EDT Procedure Visit [facility] [address] [place] [address] Jaclyn Potts DPM [address] [place] [address] [facility] Start: 08-14-2023 End: 08-14-2023 Patient encounter procedure 08/14/2023 3:30 PM EST [facility] [address] [place] [address] Jaclyn Potts DPM [address] [place] [address] [facility] Start: 08-05-2023 End: 08-05-2023 Patient encounter procedure 08/05/2023 2:30 PM EST [facility] [address] [place] [address] Jaclyn Potts DPM [address] [place] [address] [facility] Start: 07-24-2023 End: 07-24-2023 Patient encounter procedure 07/24/2023 10:30 AM EST [facility] [address] [place] [address] Jaclyn Potts DPM [address] [place] [address] Arrived [facility] Comment on above: Arrived Start: 02-15-2023 COVID-19 Vaccine () COVID-19 Vaccine () [facility] Start: 02-15-2023 COVID-19 Vaccine ( season) COVID-19 Vaccine ( season) [facility] Start: 02-15-2023 Influenza vaccination Influenza Vaccine [facility] Start: 07-14-2013 Pneumococcal Vaccine: 65+ Years (2 - PCV) Pneumococcal Vaccine: 65+ Years (2 - PCV) [facility] Start: 07-14-2013 Pneumococcal Vaccine: 65+ Years (2 of 2 - PCV) Pneumococcal Vaccine: 65+ Years (2 of 2 - PCV) [facility] Start: 2005 Fall Risk Screening Fall Risk Screening [facility] Start: 1990 Administration of varicella zoster vaccine Zoster (Shingles) Vaccine (1 of 2) [facility] Start: 12-03-1959 DTaP,Tdap and Td Vaccines (1 - Tdap) DTaP,Tdap and Td Vaccines (1 - Tdap) [facility] Start: 1952 Depression Screening Depression Screening [facility] Start: 1940 Medicare Annual Wellness Visit Medicare Annual Wellness Visit [facility] End: 02-13-2025 Basic metabolic 2000 panel - Serum or Plasma Basic Metabolic Panel Lab Routine Stage 3b chronic kidney disease (CMS-HCC) 1 Occurrences starting 02/14/2024 until 02/13/2025 [facility] Comment on above: 1 Occurrences starting 02/14/2024 until 02/13/2025 End: 11-30-2024 Basic metabolic 2000 panel - Serum or Plasma [facility] Work Phone: End: 11-16-2025 Basic metabolic 2000 panel - Serum or Plasma Basic Metabolic Panel Lab Routine CKD (chronic kidney disease) stage 2, GFR 60-89 ml/min 1 Occurrences starting 11/16/2024 until 11/16/2025 [facility] Work Phone: Comment on above: 1 Occurrences starting 11/16/2024 until 11/16/2025 Bedside Glucose *Lee ce/Obtain serum glucose if >500 per glucometer. [facility] Work Phone: End: 02-13-2025 CBC panel - Blood by Automated count CBC without diff Lab Routine Stage 3b chronic kidney disease ([facility]) 1 Occurrences starting 02/14/2024 until 02/13/2025 [facility] Work Phone: Comment on above: 1 Occurrences starting 02/14/2024 until 02/13/2025 End: 11-13-2025 CBC panel - Blood by Automated count [facility] End: 11-16-2025 CBC panel - Blood by Automated count CBC without diff Lab Routine CKD (chronic kidney disease) stage 2, GFR 60-89 ml/min 1 Occurrences starting 11/16/2024 until 11/16/2025 [facility] Comment on above: 1 Occurrences starting 11/16/2024 until 11/16/2025 CBC W Auto Different ial panel - Blood [facility] End: 11-30-2024 CBC W Auto Differential panel - Blood [facility] End: 11-12-2024 Clinical Pathology [facility] Comprehensive metabo lic 2000 panel - Serum or Plasma [facility] End: 11-13-2025 Comprehensive metabolic 2000 panel - Serum or Plasma [facility] End: 11-11-2024 Immunoelectrophoresis for Therapy Monitoring [facility] Work Phone: Immunoelectrophoresi s for Therapy Monitoring [facility] End: 02-13-2025 Magnesium [Mass/volume] in Serum or Plasma Magnesium Lab Routine Stage 3b chronic [facility] 1 Occurrences starting 02/14/2024 until 02/13/2025 [facility] Comment on above: 1 Occurrences starting 02/14/2024 until 02/13/2025 Magnesium [Mass/volu me] in Serum or Plasma [facility] End: 11-30-2024 Magnesium [Mass/volume] in Serum or Plasma [facility] End: 11-16-2025 Magnesium [Mass/volume] in Serum or Plasma Magnesium Lab Routine CKD (chronic kidney disease) stage 2, GFR 60-89 ml/min 1 Occurrences starting 11/16/2024 until 11/16/2025 [facility] Comment on above: 1 Occurrences starting 11/16/2024 until 11/16/2025 End: 11-09-2024 MR Foot - left WO and W contrast IV [employer] Work Phone: End: 11-10-2024 Occult blood x 1, stool [facility] Optx dstl radl x-art ic fx/epiphysl sep OPEN REDUCTION INTERNAL FIXATION RADIUS DISTAL Colles' fracture of right radius [facility] Oxygen Therapy - Ana ntain SpO2: 90%; *BEATER BOSS Guidelines for O2: Yes; Document: \[email or web address]\[email or web address]\EPI C_Reference\Orders\Respirator y Care Guidelines\CPG Oxygen 2022.pdf [facility] End: 02-13-2025 Parathyroid Hormone, intact Parathyroid Hormone, intact Lab Routine Stage 3b chronic kidney disease ([facility]) 1 Occurrences starting 02/14/2024 until 02/13/2025 [facility] Comment on above: 1 Occurrences starting 02/14/2024 until 02/13/2025 End: 11-16-2025 Parathyroid Hormone, intact Parathyroid Hormone, intact Lab Routine CKD (chronic kidney disease) stage 2, GFR 60-89 ml/min 1 Occurrences starting 11/16/2024 until 11/16/2025 [facility] Comment on above: 1 Occurrences starting 11/16/2024 until 11/16/2025 End: 02-13-2025 Phosphate [Mass/volume] in Serum or Plasma Phosphorus Lab Routine Stage 3b chronic kidney disease ([facility]) 1 Occurrences starting 02/14/2024 until 02/13/2025 [facility] Comment on above: 1 Occurrences starting 02/14/2024 until 02/13/2025 End: 11-30-2024 Phosphate [Mass/volume] in Serum or Plasma [facility] End: 11-16-2025 Phosphate [Mass/volume] in Serum or Plasma Phosphorus Lab Routine CKD (chronic kidney disease) stage 2, GFR 60-89 ml/min 1 Occurrences starting 11/16/2024 until 11/16/2025 [facility] Comment on above: 1 Occurrences starting 11/16/2024 until 11/16/2025 End: 02-13-2025 Protein creat ratio Protein creat ratio Lab Routine Stage 3b chronic kidney disease ([facility]) 1 Occurrences starting 02/14/2024 until 02/13/2025 [facility] Comment on above: 1 Occurrences starting 02/14/2024 until 02/13/2025 End: 11-16-2025 Protein creat ratio Protein creat ratio Lab Routine CKD (chronic kidney disease) stage 2, GFR 60-89 ml/min 1 Occurrences starting 11/16/2024 until 11/16/2025 [facility] Comment on above: 1 Occurrences starting 11/16/2024 until 11/16/2025 End: 11-11-2024 Protein electrophoresis, serum [facility] Protein electrophore sis, serum [facility] End: 02-13-2025 Urinalysis Urinalysis Lab Routine Stage 3b chronic kidney disease ([facility]) 1 Occurrences starting 02/14/2024 until 02/13/2025 [facility] Comment on above: 1 Occurrences starting 02/14/2024 until 02/13/2025 End: 11-16-2025 Urinalysis Urinalysis Lab Routine CKD (chronic kidney disease) stage 2, GFR 60-89 ml/min 1 Occurrences starting 11/16/2024 until 11/16/2025 [facility] Comment on above: 1 Occurrences starting 11/16/2024 until 11/16/2025 End: 12-19-2025 Urinalysis Urinalysis Lab Routine Stage 3b chronic kidney disease ([facility]) 1 Occurrences starting 12/24/2024 until 12/19/2025 [facility] Comment on above: 1 Occurrences starting 12/24/2024 until 12/19/2025 End: 02-13-2025 Vitamin D 25 hydroxy Vitamin D 25 hydroxy Lab Routine Stage 3b chronic kidney disease ([facility]) 1 Occurrences starting 02/14/2024 until 02/13/2025 [facility] Comment on above: 1 Occurrences starting 02/14/2024 until 02/13/2025 Immunizations Immunization Date Immunization Notes Care Provider Fa [facility] 08-26-2024 influenza virus vacc ine, unspecified formulation Codie POLK Work Phone: [facility] 06-24-2023 Influenza, injectabl e, Madin Hetal Canine Kidney, preservative free, quadrivalent Jaclyn Potts DPM Work Phone: [facility] 06-24-2023 influenza virus vacc ine, unspecified formulation Kelly Erickson LAB RN [facility] 05-17-2022 influenza, injectabl e, quadrivalent, preservative free Jaclyn Rusher DPM Work Phone: [facility] 08-10-2021 influenza, injectabl e, quadrivalent, preservative free Jaclyn Rusher DPM Work Phone: [facility] 09-09-2020 COVID-19, mRNA, LNP- S, PF, 100mcg/0.5mL Dose Pam Oberneder SUPERVISOR REWORK-FREELANCE COURT REPORTER Work Phone: [facility] 08-12-2020 COVID-19, mRNA, LNP- S, PF, 100mcg/0.5mL Dose Pam Oberneder SUPERVISOR REWORK-FREELANCE COURT REPORTER Work Phone: [facility] 04-26-2020 Influenza, injectabl e, Madin Hetal Canine Kidney, preservative free, quadrivalent Jaclyn Rusher DPM Work Phone: [facility] 04-26-2020 influenza virus vacc ine, unspecified formulation Pam Oberneder SUPERVISOR REWORK-FREELANCE COURT REPORTER Work Phone: [facility] 04-29-2018 Influenza, injectabl e, Madin [place] Canine Kidney, preservative free, quadrivalent Jaclyn Rusher DPM Work Phone: [facility] 07-14-2012 pneumococcal polysaccharide vaccine, 23 valent Jaclyn Rusher DPM Work Phone: [facility] 12-19-2011 pneumococcal polysaccharide vaccine, 23 valent Jaclyn Rusher DPM Work Phone: [facility] Payers Date Payer Category Payer Self-pay 2016 [facility] er [id number] 2016 [employer] Blue Shie ld Indemnity [id number] 2016 Unknown [id number]. [id number] 2016 Unknown [id number] 2005 Medicare [id number]. [id number] 2005 Medicare [id number] 1959 Medicare [id number] 1940 Unknown [id number] 2.16.840.1.293322.3.579. 2.593 1940 Unknown [id number] 2.16840.1.580416.3.579. 2.1259 1940 Unknown [id number] 2.16.840.1.919933.3.579. 2.1259 1940 Unknown [id number] 2.16840.1.241406.3.579. 2.1259 1940 Unknown [id number] 2.16.840.1.967885.3.579. 2.1259 1940 Unknown [id number] 2.16.840.1.451353.3.579. 2.1259 1940 Unknown [id number] 2.16.840.1.879448.3.579. 2.1286 1940 Unknown [id number] 2.16.840.1.007131.3.579. 2.1286 1940 Unknown [id number] 2.16.840.1.163305.3.579. 2.128 1940 Unknown [id number] 2.16.840.1.916780.3.579. 2.1285 1940 Unknown [id number] 2.16.840.1.827053.3.579. 2.128 1940 Unknown [id number] 2.16840.1.047469.3.579. 2.1285 1940 Unknown [id number] 2.16840.1.228868.3.579. 2.128 1940 Unknown [id number] 2.840.1.823412.3.579. 2.1285 1940 Unknown [id number] 2.840.1.491857.3.579. 2.1285 1940 Unknown [id number] 2.840.1.500154.3.579. 2.1285 1940 Unknown [id number] 2.840.1.627011.3.579. 2.1285 1940 Unknown [id number] 2.840.1.371933.3.579. 2.1285 1940 Unknown [id number] 2.840.1.931649.3.579. 2.1285 1940 Unknown [id number] 2.840.1.698628.3.579. 2.1285 1940 Unknown [id number] 2.16840.1.677440.3.579. 2.1285 1940 Unknown [id number] 2.16840.1.119287.3.579. 2.1285 1940 Unknown [id number] 2.16.840.1.012881.3.579. 2.1285 1940 Unknown [id number] 2.16840.1.050901.3.579. 2.128 1940 Unknown [id number] 2.16.840.1.341049.3.579. 2.1286 1940 Unknown [id number] 2.16.840.1.624916.3.579. 2.1286 1940 Unknown [id number] 2.16.840.1.346758.3.579. 2.1286 1940 Unknown [id number] 2.16.840.1.443764.3.579. 2.1286 1940 Unknown [id number] 2.16.840.1.500710.3.579. 2.1286 Unknown [id number] 2.16.840.1.347193.3.579. 2.531 Social History Date Type Detail Facility Start: 04-17-2022 End: 05-27-2023 Tobacco smoking status [facility] Ex-smoker [facility] History of tobacco use Current smoker [facility] History of tobacco use Cigarette Smoker [facility] Start: 04-17-2022 End: 05-27-2023 Tobacco use and exposure Smokeless tobacco non-user [facility] Start: 07-05-2023 End: 01-15-2025 Alcohol intake Lifetime non-drinker (finding) [facility] Start: 07-28-2020 End: 07-05-2023 History of Social function [facility] Start: 07-28-2020 End: 07-05-2023 Tobacco use panel [facility] Start: 1940 Sex Assigned At Not on file N [facility] How often to you hav e a drink containing alcohol? Never [facility] Average Number of Drinks Not on file [facility] Start: 01-20-2015 Sex Female (finding) [facility] Has the Mingly, Basic6, or Memfo[employer] threatened to shut off services in your home in past 12Mo No [facility] Medical Equipment Procedure Code Equipment Code Equipment Origin al Text Equipment Identifier Dates [id number], [id number] Start: 06-02-2024 Goals Date Patient Goal Desired Activity /State Personal health goal Comment on above: Formatting of this n ote might be different from the original. Evaluation of progress towards goal: feeling better than at admission Functional Status Date Assessment Result Facility 11-08-2024 Humiliation, Afraid, Rape, and Kick questionnaire [HARK] [facility] Clinical Notes 07-24-2023 to 01-18-2025 Jaclyn Potts, FREDO - 01/18/2025 5:44 PM EDTTelephone Encounter - Geeta Sriram - 01/04/2025 3:30 PM EDTTelephone Encounter - Danialmarielarosas Sriram - 01/04/2025 3:30 PM EDTPatient InstructionsAttachments Note [...] having received wound care measures well at [facility]. The lesions are symptomatic describing [...] of this patient. documented in this encounter [facility] 01-04-2025 Miscellaneous Notes PT IS IN WHEELCHAIR AND NOT ABLE TO COME TO APT HAD TO RESCHEDULE documented in this encounter [facility] 01-04-2025 Telephone encounter Note PT IS IN WHEELCHAIR AND NOT ABLE TO COME TO APT HAD TO RESCHEDULE [facility] 12-31-2024 History of Present illness Narrative Images from the original note were not included. Wound Care Progress Note Patient: Rupa Gutierrez Date of : 1940 Chief Complaint: Bilateral leg swelling with ulcerations, follow up SUBJECTIVE/HPI: Rupa is a 84 y.o. female who presents to [facility] for evaluation of 4 ulcerations [...] pain Calculus of ureter BMI 45.0-49.9, adult ([facility]) Morbid obesity ([facility]) Mild tricuspid regurgitation Pulmonary hypertension ([facility]) Essential hypertension Preop cardiovascular exam Lymphedema Diabetes mellitus type I ([facility]) Cellulitis of lower extremity, unspecified laterality Hyperkalemia Hypothyroidism PVD (peripheral vascular disease) Hyponatremia Pressure injury of right heel, unstageable ([facility]) Venous stasis ulcer of left calf with fat layer exposed with varicose veins ([facility]) Acute kidney injury superimposed on CKD Class 3 severe obesity due to excess calories with body mass index (BMI) of 40.0 to 44.9 in adult ([facility]) Chronic diastolic congestive heart failure ([facility]) Pressure ulcer of right buttock, stage 2 ([facility]) Indwelling Nj catheter present Iron deficiency anemia Stage 3b chronic kidney disease ([facility]) 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 ([facility]) Past Medical History: Diagnosis Date Anxiety C. difficile diarrhea CHF (congestive heart failure) ([facility]) Dental disease Diabetes mellitus type I ([facility]) Hypertension Hypothyroid Insomnia Kidney stone stage 3 Neuropathy Obesity Osteoarthritis Paroxysmal supraventricular tachycardia Peripheral neuropathy Plantar fasciitis Pulmonary HTN ([facility]) PVD (peripheral vascular disease) Visual impairment White [...] cm 12/31/241414 Wound Width (cm) 5.9 cm 12/31/24 141 Wound Surface Area (cm^2) 19.46 cm^2 12/31/24 141 Wound Depth (cm) 0.1 cm 12/31/241414 Wound [...] 12/31/241414 Wound Bed Eschar (%) < 25% 11/18/241334 Wound 11/18/24 2 Diabetic Ulcer Heel Right;Plantar (Active) Wound Image 12/31/241418 Site Assessment Eschar Unstable 12/31/241418 Ana-wound Assessment Maceration;Purple;Fragile;Blancha ble erythema 12/31/241418 Wound Length (cm) 0.5 cm 12/31/241418 Wound Width (cm) 1 cm 12/31/241418 Wound Surface Area (cm^2) 0.39 cm^2 12/31/241418 Change in Wound Size % 78.8 12/31/241418 Drainage Amount None 12/31/241418 Treatments Cleansed with;Wound cleanser;Soak with;Vashe/Hypochlorous Acid 12/31/24 141 Debridement Performed? N 12/31/241418 Dressing Type Betadine Swab 12/31/241418 Dressing Changed New 12/31/241418 Dressing Status Clean;Dry;Intact 12/31/241418 Wound Bed Eschar (%) 100% 12/31/241418 Wound [...] 12/31/241418 Change in Wound Size % 76.11 12/31/24 141 Drainage Description Sanguineous 12/31/24 141 Drainage Amount Scant 12/31/24 141 Treatments Cleansed with;Wound cleanser 12/31/241418 Debridement Performed? [...] Wound Image 12/31/24 141 Site Assessment Black 12/31/24 141 Ana-wound Assessment Intact 12/31/241418 Wound Length (cm) 3.2 cm 12/31/241418 Wound Width (cm) 3 cm 12/31/241418 Wound Surface Area (cm^2) 7.54 cm^2 12/31/241418 Drainage Amount None 12/31/24 141 Treatments Cleansed with;Wound cleanser 12/31/241418 Debridement Performed? N 12/31/241418 Dressing Type Honey Dressing 12/31/241418 Dressing Changed New 12/31/24 141 Dressing Status Clean;Dry;Intact 12/31/24 141 Wound Bed Eschar (%) 100% 12/31/241418 Wound 12/31/24 6 Heel Left (Active) Wound Image 12/31/24 142 Site Assessment Painful;Black 12/31/24 142 Ana-wound Assessment Blanchable erythema 12/31/24 142 Wound Length (cm) 3.9 cm 12/31/24 142 Wound Width (cm) 4 cm 12/31/24 142 Wound Surface Area (cm^2) 12.25 cm^2 12/31/24 1422 Drainage Amount None 12/31/24 1422 Debridement Performed? N 12/31/24 142 Dressing Type Betadine Swab 12/31/24 142 Dressing Changed New 12/31/24 142 Dressing Status Clean;Dry;Intact 12/31/24 142 Wound Bed Eschar (%) 100% 12/31/24 142 Declines debridement today due to pain. Assessment/Plan/Education: 1. Non-pressure ulcer of lower extremity with fat layer exposed, right ([facility]) 2. Pressure injury of right heel, unstageable ([facility]) 3. Venous stasis ulcer of left lower leg with edema of left lower leg ([facility]) 4. Lymphorrhea 5. 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 ([facility]) Patient declines assessment of buttock wound today states she does not want to turn. She reports the facility is putting some sort of ointment on it daily and she denies pain to this wound. Please continue current plan of care. She states she is taking a protein drink daily. Please have patient evaluated by a software development test engineer for any protein needs to assist with [...] and leg. Short term goal: medical compliance terminal gauger supervisor goal: wound closure Patient verbalize understanding of [...] patient/family/caregiver Referring and communicating with other health career development consultant (not separately reported) Documenting clinical information in the electronic or other health record KESHA Virgen [facility] Main Office: [phone] Email: [email or web address] Monroy 01/01/25 1611 documented in this encounter [facility] 12-31-2024 Instructions Ceci Byrd RN - 12/31/2024 1:20 PM EDT [place] [facility] Treatment Plan Wound Location(s): Left [...] visit. Please have patient evaluated by a software development test engineer for any protein needs to assist with [...] moderate Serosanginous yellow documented in this encounter [facility] 12-25-2024 Miscellaneous Notes Reyna from [facility] calling to notify Dr. Taylor that patient already has a scheduled appt with [facility] 01/05/2025. Does Dr. Taylor feel patient should see Dr. Harris specifically. No she can keep that Uro appt. Message given to Loretta at [facility] to keep Urology appt documented in this encounter [facility] 12-25-2024 Telephone encounter Note Reyna from [facility] calling to notify Dr. Taylor that patient already has a scheduled appt with [facility] 01/05/2025. Does Dr. Taylor feel patient should see Dr. Harris specifically. [facility] 12-25-2024 Telephone encounter Note No she can keep that Uro appt. [facility] 12-25-2024 Telephone encounter Note Message given to Loretta at [facility] to keep Urology appt [facility] 12-24-2024 History of Present illness Narrative Images from the original note were not included. Date of Service: 12/24/24 PCP: ANGELINE BRIDGES MD History of Present Illness Rupa Gutierrez is a 84 y.o. female, with stage IIIB chronic kidney disease returning for nephrologic follow-up. We recently saw her during a [facility] stay in October of 2024 when [...] place. The patient was rehospitalized at the [facility] from November 30 through December 03, 2024 [...] The patient has been recuperating at the [facility]. She continues to require wound care of [...] 27. Rheumatoid factor less than 10. Anti MINT WAFER DEPOSITOR anti Sands antibody titers anti chromatin antibody [...] 11/10/2024 FERRITIN 151 11/30/2024 FERRITIN 235 11/10/2024 [id number] 182 11/10/2024 [id number] 213 11/09/2024 FOLATE 13.5 11/10/2024 FOLATE 12.9 [...] of 65-70%. Normal left ventricular size with ages-ru-ymwjozei concentric left ventricular hypertrophy. Normal hyperdynamic left [...] of your patients! Please contact me at [phone] (Office) or [phone] (Answering service) with any questions. CLAUDIA TAYLOR MD [facility] This note was created with the assistance of a speech-recognition program. Although the intention is to generate a document that actually reflects the content of the visit, no guarantees can be provided that every mistake has been identified and corrected by editing. CLAUDIA TAYLOR MD,PhD FACP [facility] ANY QUESTIONS FEEL FREE TO CALL: 1. OFFICE [phone] 2. ANSWERING SERVICE: [phone] documented in this encounter [facility] 12-17-2024 Note HPI Reported by patient. Hand Dominance: right Location: right distal radius fracture sustained 3.5months ago, treated non operative fashion by Dr. Lerma at [facility], referred to Dr. Ortiz , seen on 10/19/24 Quality: ache Severity: improving, recently admitted to [facility] for multiple problems Alleviating Factors: nothing Aggravating [...] Follow up in 4 weeks for re-evaluation [facility] 12-16-2024 Miscellaneous Notes Left message for patient to call the office back to confirm upcoming appointment 12/24 at 11:[address] Taylor in [place]. Also stated that patient needs to get labs done prior to upcoming appointment documented in this encounter [facility] 12-16-2024 Telephone encounter Note Left message for patient to call the office back to confirm upcoming appointment 12/24 at 11:[address] Taylor in [place]. Also stated that patient needs to get labs done prior to upcoming appointment [facility] 11-18-2024 History of Present illness Narrative Associated Order(s): Debridement Post-Procedure Diagnose(s): Lymphedema Images from the original note were not included. Wound Care Progress Note Patient: Rupa Gutierrez Date of : 1940 Chief Complaint: Bilateral leg swelling with ulcerations, follow up SUBJECTIVE/HPI: Rupa is a 83 y.o. female who presents to [facility] for evaluation of 4 ulcerations [...] pain Calculus of ureter BMI 45.0-49.9, adult ([facility]) Morbid obesity ([facility]) Mild tricuspid regurgitation Pulmonary hypertension ([facility]) Essential hypertension Preop cardiovascular exam Lymphedema Diabetes mellitus type I ([facility]) Cellulitis of lower extremity, unspecified laterality Hyperkalemia Hypothyroid PVD (peripheral vascular disease) Hyponatremia Pressure injury of right heel, unstageable ([facility]) Venous stasis ulcer of right lower leg with edema of right lower leg ([facility]) Venous stasis ulcer of left lower leg with edema of left lower leg ([facility]) Past Medical History: Diagnosis Date Anxiety C. difficile diarrhea CHF (congestive heart failure) ([facility]) Dental disease Diabetes mellitus type I ([facility]) Hypertension Hypothyroid Insomnia Kidney stone stage 3 Neuropathy Obesity Osteoarthritis Paroxysmal supraventricular tachycardia Peripheral neuropathy Plantar fasciitis Pulmonary HTN ([facility]) PVD (peripheral vascular disease) Visual impairment White [...] fibrin Post debridement 11/18/24 1403 Site Assessment Raysal;Red;Yellow;Brown 11/18/24 1335 Ana-wound Assessment Blanchable erythema 11/18/24 1335 Shape blocked 11/18/24 1335 Wound Length (cm) 5.5 cm 11/18/24 1335 Wound Width (cm) 6.5 cm 11/18/24 1335 Wound Surface Area (cm^2) 28.08 cm^2 11/18/24 1335 Drainage Description Serosanguineous;Yellow 11/18/24 1335 Drainage Amount Moderate 11/18/24 1335 Treatments Cleansed with;Wound cleanser;Soak with;Vashe/Hypochlorous Acid 11/18/24 1335 Debridement Performed? Y 11/18/24 1403 Type of Debridement Sharp to Subcutaneous 11/18/241402 Dressing Type Abdominal dressing;Honey Dressing;Vaseline gauze;Other (Comment) 11/18/241402 Dressing Changed New 11/18/241402 Dressing Status Clean;Dry;Intact 11/18/241402 Wound Bed Granulation (%) < 25% 11/18/241334 Wound Bed Slough (%) 75% to 100% 11/18/241334 Wound Bed Eschar (%) < 25% 11/18/24 133 Wound 11/18/24 2 Diabetic Ulcer Heel Right;Plantar (Active) Wound Image Pressure ulcer 11/18/24 133 Site Assessment Eschar stable 11/18/241334 Ana-wound Assessment Maceration;Purple;Fragile;Blancha ble erythema 11/18/241334 Wound Length (cm) 1.3 cm 11/18/24 133 Wound Width (cm) 1.8 cm 11/18/24 133 Wound Surface Area (cm^2) 1.84 cm^2 11/18/241334 Drainage Amount None 11/18/24 140 Treatments Cleansed with;Wound cleanser;Soak with;Vashe/Hypochlorous Acid 11/18/24 133 Debridement Performed? N 11/18/24 140 Wound Bed Eschar (%) 100% 11/18/241334 Wound 11/18/24 3 Diabetic Ulcer Ankle/Malleolus Anterior;Left (Active) Wound Image 11/18/24 133 Site Assessment Black 11/18/241334 Ana-wound Assessment Blanchable erythema 11/18/245 Wound Length (cm) 0.3 cm 11/18/241334 Wound Width (cm) 0.4 cm 11/18/241334 Wound Surface Area (cm^2) 0.09 cm^2 11/18/24 133 Drainage Description Sanguineous 11/18/24 133 Drainage Amount Scant 11/18/24 133 Treatments Cleansed with;Wound cleanser;Soak with;Vashe/Hypochlorous Acid 11/18/24 133 Debridement Performed? N 11/18/24 133 Wound Bed Eschar (%) 100% 11/18/24 1335 Wound 11/18/24 4 Diabetic Ulcer Calf Right;Lateral (Active) Wound Image 11/18/24 1335 Site Assessment Eschar Stable 11/18/24 1335 Ana-wound Assessment Blanchable erythema 11/18/24 1335 Shape blocked 11/18/24 1335 Wound Length (cm) 4 cm 11/18/24 1335 Wound Width (cm) 3 cm 11/18/24 1335 Wound Surface Area (cm^2) 9.42 cm^2 11/18/24 1335 Wound Depth (cm) 0.1 cm 11/18/24 1335 Wound Volume (cm^3) 0.628 cm^3 11/18/24 133 Drainage Description Sanguineous 11/18/24 133 Drainage Amount Scant 11/18/24 1335 Treatments Cleansed with;Wound cleanser;Soak with;Vashe/Hypochlorous Acid 11/18/24 133 Debridement Performed? N 11/18/241334 Wound Bed Eschar (%) 100% 11/18/24 27184 Discussion: Debridement is the removal of foreign [...] Risks discussed: Yes Debridement Details: Performed by: DIRECTOR OF CODING Type: Sharp Level: Subcutaneous Tissue, Devitalized tissue and other material debrided: Subcutaneous tissue and fibrin Anesthesia administration: topical Anesthesia: EMLA Total Surface Area Debrided cm^2: 28.08 Specimen Taken: None Instrument: Curette Amount of bleeding: Small Bleeding Control: Pressure Response to treatment: Procedure was tolerated well Tissue Applied?: No Assessment/Plan/Education: 1. Lymphedema 2. Lymphorrhea 3. Pressure injury of right heel, unstageable (CMS-HCC) 4. Non-pressure ulcer of lower extremity with fat layer exposed, right (CMS-HCC) Avoid prolonged leg dependency. Wash legs and [...] heel #2 Wash mild soap and water [place] with betadine daily Pad and protect with [...] and leg. Short term goal: medical compliance jail goal: wound closure Patient verbalize understanding of [...] procedures Referring and communicating with other health career development consultant (not separately reported) Documenting clinical information in the electronic or other health record - JAM MEEHAN 11/18/24 2:01 PM Codie March APRN, MARTÍNEZ, DAVID, BETO [facility]: [phone] JAM Meehan 10/13/24 3600 JAM Meehan 11/18/24 7729 documented in this encounter [facility] 11-18-2024 Instructions Letty Dodson RN - 11/18/2024 1:20 PM EDT [place]- Please place sling under patient in wheel chair before appointment Wound Management Treatment Plan Wound Location(s): Left heel HOW TO CARE FOR YOUR WOUND The following should be performed Daily and as needed. STEP 1: Cleanse with soap and water then pat dry then [place] wound with betadine and protect with heel [...] FOLLOW UP ON: Make appt. with your dispensing lead for the right great toe. Length Width [...] moderate Serosanginous yellow documented in this encounter [facility] 11-14-2024 Nurse Note PTN arrives to take patient back to [facility] AVS reviewed, questions answered, verbalized understaning. IV removed. PTN to transport patient to [facility] documented in this encounter [facility] 11-14-2024 Miscellaneous Notes Problem: Safety Goal: Patient [...] at the bedside 7. Instruct patient/ patient metals sales representative about use of safety devices 8. Include patient/ patient metals sales representative in decisions related to safety Outcome: Progressing Note: Evaluation of progress towards goal: Remains free from injury. Safety precautions maintained. Problem: Knowledge Deficit Goal: Patient/patient metals sales representative demonstrates understanding of disease process, treatment [...] be free from fall Description: Interventions: 1. [place] to environment 2. Hourly rounds addressing the [...] non-skid footwear 11. Teach patient and patient metals sales representative to maintain environment for safety and [...] (cane, walker) within reach 19. Request patient metals sales representative bring adaptive equipment/mobility aids from home or obtain and provide as needed 20. Consult pharmacy regarding effects of med's affecting mobility, cognition, and alternatives 21. Obtain physician order for PT if risk factors associated with mobility are present 22. Obtain physician order for OT as appropriate 23. Utilize diversional activities 24. Educate patient and patient metals sales representative how to maintain a safe environment during visitation times (notify nurse prior to leaving bedside) 25. Consider appropriateness of medical or non-medical reception specialist 26. Set up voiding schedule as appropriate (every 2 hours) Outcome: Progressing Note: Remains free from falls. Fall precautions maintained. DISCHARGE PLANNING NOTE CRF and nephrology sent to [facility] [place], [place] (P# ; F# ) Ongoing Assessment for Discharge Needs Reviewed discharge milestones and patient needs related to discharge plan. Current estimated discharge date of November 13, 2024 has been reviewed by treatment team. Ongoing Assessment for Discharge Needs Flowsheet Row Most Recent Value Services Requested Patient expects to be discharged to: return to [facility] stay Does the patient wish to have family/friend/caregiver involved in their discharge planning? Yes Does the patient plan to return home to a community setting? No, patient to discharge to facility-based provider. See Discharge Disposition Discharge Disposition Skilled Return Skilled Return Name [place] Skilled Return Skilled Return Does the patient need discharge transportation arranged? Yes Patient choice offered Patient declined List Provided Patient declined Patient Declined Active with Provider DC Planning Complete Discharge Milestones Yes Update from [employer] REPORTER, pt to DC today after PICC line placement. Tasked Transition Center to send referral to CRF & updated clinicals to [place] noting transport to be arranged after PICC [...] risk, ADL status, Communication needs, Endurance level Outreach Counselor Support for-: Mobility Deficits, ADL Deficits, Cognitive [...] through feet for wound healing. per poditary) Telemetry/Cardiac Catheterization Technician: Yes Oxygen Used: room air Other: fall risk, multiple wounds on bilteral LE's. was recently admitted here to hospital around 10/26/24 Subjective Occupational Therapy Comments: that other aide is a [employer] worker Pain Assessment Pain Assessment: (intermitten LE [...] Disciplines: OT Outcomes Date/Time User Outcome 11/13/24 1057 Reshma Vivas OTR/L Progressing Goal Note filed on 11/13/24 105 [...] to prior level of function and decrease resident care provider burden Disciplines: OT Goal Note filed on 11/13/241057 by JODY Porras/Orlin Evaluation of progress towards goal: max/ total assist for sponge bath Problem: Standing Balance Dates: Start: 11/10/24 Disciplines: OT Goal: Improve balance to good Dates: Start: 11/10/24 Expected End: 11/19/24 Description: OT to assess to further develop plan of care Disciplines: OT Outcomes Date/Time User Outcome 11/13/24 105 JODY Porras/Orlin Not Progressing Goal Note filed on 11/13/241057 by JODY Porras/Orlin Evaluation of progress towards goal: use of [...] Problem: Pressure injury of right heel, unstageable ([facility]) Active Problems: Lymphedema Diabetes mellitus type I ([facility]) Hyperkalemia Hypothyroid PVD (peripheral vascular disease) Hyponatremia Venous stasis ulcer of right lower leg with edema of right lower leg ([facility]) Venous stasis ulcer of left lower leg with edema of left lower leg ([facility]) Attempted to perform tele health visit this [...] that there are some limitations compared to [id number] evaluations. We elected to proceed. Nephrology Daily [...] 27. Rheumatoid factor less than 10. Anti MINT WAFER DEPOSITOR anti Sands antibody titers anti chromatin antibody [...] 137/56 181/71 Pulse: 93 99 100 Resp: 18 Temp: 36.8 C (98.2 F) 36.8 C [...] Results from last 7 days Lab Units 11/13/2452511/12/2451111/11/2452511/10/2452711/09/24 1241 11/09/24 06 SODIUM mmol/L 137 134 137 138 -- [...] Results from last 7 days Lab Units 11/13/2452511/12/2451111/11/2452511/10/2452711/09/24 1241 WBC x10E9/L 10.8 11.1* 9.4 11.1* 10.5 HEMOGLOBIN g/dL 9.0* 8.6* 8.7* 9.7* 9.9* HEMATOCRIT % 26.5* 25.1* 25.8* 28.9* 29.4* PLATELETS X10E9/L 64* 37* 28* 19* 25* Results from last 7 days Lab Units 11/13/2452511/12/24511 10/28/25 0526 11/10/24 0528 11/09/24 0612 PROTEIN TOTAL [...] Aldactone Kimberly Perez M.D. [facility] [facility] Thank you for your consultation and allowing us to participate in the care of Rupa Gutierrez and please do not hesitate to call us with any questions at: Office: [phone] Office Answering Service: [phone] Please feel free to contact me through [employer] Secure chat during the daytime hours, if [...] Description: INTERVENTIONS: 1. Encourage patient or legal metals sales representative to report early pain and ask [...] per policy 9. Teach patient or legal metals sales representative interventions for comforting Outcome: Progressing Note: [...] at the bedside 7. Instruct patient/ patient metals sales representative about use of safety devices 8. Include patient/ patient metals sales representative in decisions related to safety Outcome: [...] hygiene technique. 7. Identify and instruct patient/patient metals sales representative in use of appropriate isolation precautions for identified infection/symptoms. 8. Provide and discuss with patient/patient metals sales representative on educational MDRO sheet. 9. Encourage and monitor nutritional status daily and consult software development test engineer if indicated. 10. Implement neutropenic guidelines as needed. Outcome: Progressing Note: Evaluation of progress towards goal: Pt assessed and monitored for signs and symptoms of infection, lab and diagnostic results monitored as needed, administer medications as needed. Problem: Knowledge Deficit Goal: Patient/patient metals sales representative demonstrates understanding of disease process, treatment [...] Description: INTERVENTIONS: 1. Encourage patient or legal metals sales representative to report early pain and ask [...] per policy 9. Teach patient or legal metals sales representative interventions for comforting Outcome: Progressing Note: [...] at the bedside 7. Instruct patient/ patient metals sales representative about use of safety devices 8. Include patient/ patient metals sales representative in decisions related to safety Outcome: Progressing Note: Evaluation of progress towards goal: Problem: Pain Goal: Patient goal is pain score less than 4, able to rest, and participant in treatment plan as appropriate Description: INTERVENTIONS: 1. Encourage patient or legal metals sales representative to report early pain and ask [...] per policy 9. Teach patient or legal metals sales representative interventions for comforting Outcome: Progressing Note: Evaluation of progress towards goal: DISCHARGE PLANNING NOTE Rupa Gutierrez Patient is planned to discharge to prison facility. Follow up appointments added to the patient's AVS/CRF for the prison facility to schedule. Nursing Home Facility, please call and schedule the following appointments: [facility] for [facility]j catheter at discharge follow up. Phone number: [phone] [facility] for an appointment in 3-4 weeks. Phone number: [phone] Please make sure patient has appointments to follow up with the [facility] at [phone] - Cintia Bhakta RN 11/12/24 1:28 PM Problem: Pain Goal: Patient goal is pain score less than 4, able to rest, and participant in treatment plan as appropriate Description: INTERVENTIONS: 1. Encourage patient or legal metals sales representative to report early pain and ask [...] per policy 9. Teach patient or legal metals sales representative interventions for comforting Outcome: Progressing Note: [...] that there are some limitations compared to ivys-zz-wjpy evaluations. We elected to proceed. Nephrology Daily [...] 27. Rheumatoid factor less than 10. Anti MINT WAFER DEPOSITOR anti Sands antibody titers anti chromatin antibody [...] from last 7 days Lab Units 11/12/24 0512 11/11/24 0526 11/10/24 0528 11/09/24 1241 11/09/24 0612 11/08/24 1622 11/08/24 1320 SODIUM mmol/L 134 137 [...] from last 7 days Lab Units 11/12/24 0512 11/11/24 0526 11/10/24 0528 11/09/24 1241 11/09/24 0633 WBC x10E9/L 11.1* 9.4 11.1* 10.5 11.2* HEMOGLOBIN g/dL 8.6* 8.7* 9.7* 9.9* 10.0* HEMATOCRIT % 25.1* 25.8* 28.9* 29.4* 30.0* PLATELETS X10E9/L 37* 28* 19* 25* 27* Results from last 7 days Lab Units 11/12/24 0512 11/11/24 0526 11/10/24 0528 11/09/24 0611/08/24 1320 PROTEIN TOTAL g/dL [...] the patient. No obvious evidence of abscess. [facility] study Finalized by Dinorah Kaur MD on [...] discharge Kimberly Perez M.D. [facility] Thank you for your consultation and allowing us to participate in the care of Rupa Gutierrez and please do not hesitate to call us with any questions at: Office: [phone] Office Answering Service: [phone] Please feel free to contact me through [employer] Secure chat during the daytime hours, if [...] Cognition, Fall risk, ADL status, Endurance level Outreach Counselor Support for-: Mobility Deficits, ADL Deficits, Cognitive [...] weightbearing through feet for wound healing. ) Telemetry/Cardiac Catheterization Technician: Yes Oxygen Used: room air Subjective Physical [...] Problem: Pressure injury of right heel, unstageable ([facility]) Active Problems: Lymphedema Diabetes mellitus type I (CMS-HCC) Hyperkalemia Hypothyroid PVD (peripheral vascular disease) Hyponatremia Venous stasis ulcer of right lower leg with edema of right lower leg ([facility]) Venous stasis ulcer of left lower leg with edema of left lower leg ([facility]) Ongoing Assessment for Discharge Needs Reviewed discharge milestones and patient needs related to discharge plan. Current estimated discharge date of November 11, 2024 has been reviewed by treatment team. Ongoing Assessment for Discharge Needs Flowsheet Row Most Recent Value Services Requested Patient expects to be discharged to: return to [facility] for prison stay Does the patient wish to have family/friend/caregiver involved in their discharge planning? Yes Does the patient plan to return home to a community setting? No, patient to discharge to facility-based provider. See Discharge Disposition Discharge Disposition Skilled Return Skilled Return Name [facility] Skilled Return Skilled Return Does the patient need discharge transportation arranged? Yes Patient choice offered Patient declined List Provided Patient declined Patient Declined Active with Provider DC Planning Complete Discharge Milestones Yes Clinical updates to include wound care note, podiatry, nephrology & hematology consult notes sent to [facility] via [employer]. [facility] inquiring if pt will DC on IV AB; informed SNF real estate underwriter would update after morning Daily Transition Rounds. Care Navigation will continue to follow patient progress to determine appropriate safe care transition needs. 10:58: Update from [facility], pt will need 14 days IV Cefepime; PICC line will be placed. Soft Top Installer sent message to [facility] via [employer] to update. Soft Top Installer met with pt, plan remains to DC back to [facility] for prison. opportunity provided to ask questions, pt does not endorse any at this time. 11:45 Per [employer] message [facility] is able to provide IV AB. Ongoing Assessment for Discharge Needs Reviewed discharge milestones and patient needs related to discharge plan. Current estimated discharge date of November 11, 2024 has been reviewed by treatment team. Ongoing Assessment for Discharge Needs Flowsheet Row Most Recent Value Services Requested Patient expects to be discharged to: return to [facility] for prison stay Does the patient wish to have family/friend/caregiver involved in their discharge planning? Yes Does the patient plan to return home to a community setting? No, patient to discharge to facility-based provider. See Discharge Disposition Discharge Disposition Skilled Return Skilled Return Name [facility] Skilled Return Skilled Return Does the patient need discharge transportation arranged? Yes Patient choice offered Patient declined List Provided Patient declined Patient Declined Active with Provider DC Planning Complete Discharge Milestones Yes Sent today's medical note to [facility]; anticipate DC tomorrow. Care Navigation will continue [...] Description: INTERVENTIONS: 1. Encourage patient or legal metals sales representative to report early pain and ask [...] per policy 9. Teach patient or legal metals sales representative interventions for comforting Outcome: Progressing Note: [...] at the bedside 7. Instruct patient/ patient metals sales representative about use of safety devices 8. Include patient/ patient metals sales representative in decisions related to safety Outcome: Progressing Note: Evaluation of progress towards goal: Safety measures and hourly rounding in place. Pt remains free of falls and injury at this time. Will continue to monitor. Problem: Knowledge Deficit Goal: Patient/patient metals sales representative demonstrates understanding of disease process, treatment [...] that there are some limitations compared to [id number] evaluations. We elected to proceed. Nephrology Daily Progress Note INTERVAL HISTORY/History of present illness: Patient denies new complaints. States sitting in chair and comfortable. PROBLEM LIST: 1. Chronic kidney disease stage IIIB. Nephrologic investigations in May of 2020 included an LUISITO screen which was positive and anti double-stranded DNA antibody titer that was elevated to 27. Rheumatoid factor less than 10. Anti MINT WAFER DEPOSITOR anti Sands antibody titers anti chromatin antibody [...] Results from last 7 days Lab Units 11/11/24 0526 11/10/24 0528 11/09/24 1241 11/09/24 0612 11/08/24 [...] Results from last 7 days Lab Units 11/11/24 0526 11/10/24 0528 11/09/24 1241 11/09/24 0633 11/08/24 1320 WBC x10E9/L 9.4 11.1* 10.5 11.2* 13.1* HEMOGLOBIN g/dL 8.7* 9.7* 9.9* 10.0* 10.1* HEMATOCRIT % 25.8* 28.9* 29.4* 30.0* 30.1* PLATELETS X10E9/L 28* 19* 25* 27* 204 Results from last 7 days Lab Units 11/11/24 0526 11/10/24 0528 11/09/24 0612 11/08/24 1320 PROTEIN TOTAL g/dL 5.9* 7.2 7.7 [...] Lasix. Kimberly Perez M.D. [facility] Thank you for your consultation and allowing us to participate in the care of Rupa Gutierrez and please do not hesitate to call us with any questions at: Office: [phone] Office Answering Service: [phone] Please feel free to contact me through [employer] Secure chat during the daytime hours, if [...] Description: INTERVENTIONS: 1. Encourage patient or legal metals sales representative to report early pain and ask [...] per policy 9. Teach patient or legal metals sales representative interventions for comforting Outcome: Progressing Note: [...] at the bedside 7. Instruct patient/ patient metals sales representative about use of safety devices 8. Include patient/ patient metals sales representative in decisions related to safety Outcome: [...] hygiene technique. 7. Identify and instruct patient/patient metals sales representative in use of appropriate isolation precautions for identified infection/symptoms. 8. Provide and discuss with patient/patient metals sales representative on educational MDRO sheet. 9. Encourage and monitor nutritional status daily and consult software development test engineer if indicated. 10. Implement neutropenic guidelines as needed. Outcome: Progressing Note: Evaluation of progress towards goal: Problem: Knowledge Deficit Goal: Patient/patient metals sales representative demonstrates understanding of disease process, treatment [...] expects to be discharged to: return to [facility] for prison stay Does the patient wish to have family/friend/caregiver involved in their discharge planning? Yes Does the patient plan to return home to a community setting? No, patient to discharge to facility-based provider. See Discharge Disposition Discharge Disposition Skilled Return Skilled Return Name [facility] Skilled Return Skilled Return Does the patient need discharge transportation arranged? Yes Patient choice offered Patient declined List Provided Patient declined Patient Declined Active with Provider [place] Planning Complete Discharge Milestones Yes Per [facility] can accept back at [place]. Sticky note on chart with report/fax numbers. Care Navigation will continue to follow patient progress to determine appropriate safe care transition needs.. DISCHARGE PLANNING NOTE Referral for return sent to. [facility], [place], [place] (P# ; F# ) Images from the original note were not included. Initial Assessment Initial Assessment Flowsheet Row Most Recent Value Patient Information Initial Pre-Hospitalization Assessment Completed? Completed Primary Caregiver Self Support System Children, Spouse/Significant Other [friend Adam, son Ilya, daughter Dinorah] Discharge Planning Living Arrangements Private Residence [pt normally lives at home, came to hospital from [facility] d/t SNF post DC after last admission] Assistance Needed therapies Private Residence [address] [place] [facility] Accessibility Steps into home Home Care [...] expects to be discharged to: return to [facility] for prison stay Does the patient wish to have family/friend/caregiver involved in their discharge planning? Yes Does the patient plan to return home to a community setting? No, patient to discharge to facility-based provider. See Discharge Disposition Discharge Disposition Skilled Return Skilled Return Name [facility] Skilled Return Skilled Return Does the patient need discharge transportation arranged? Yes Patient choice offered Patient declined List Provided Patient declined Patient Declined Active with Provider DC Planning Complete Discharge Milestones Yes Services Requested: Services Requested Patient expects to be discharged to:: return to [facility] for prison stay Does the patient wish to have family/friend/caregiver involved in their discharge planning?: Yes Does the patient plan to return home to a community setting?: No, patient to discharge to facility-based provider. See Discharge Disposition Discharge Disposition: Skilled Return Skilled Return Name: [facility] Skilled Return Skilled Return Does the patient need discharge transportation arranged?: Yes Patient choice offered: Patient declined List Provided: Patient declined Patient Declined: Active with Provider DC Planning Complete Discharge Milestones: Yes Patient Goals: Patient/Caregiver Goals Patient/Caregiver Goals: Nursing Home Care Skilled [place] Care: Skilled Care (Short Term) Goals return to [facility] to complete skilled stay (pt-stated) Evaluation of progress towards goal: feeling better than at admission Additional Comments (If Applicable) Chart reviewed; pt DC to SNF 10/27/24. Introduced self & role of SW, pleasant pt agreeable to conversation; assessment/goals as above. Pt relayed she DC to [facility] in [place] but then a bed opened at [facility] so she transferred to [facility]. Pt plan is to return to [facility] to complete prison stay. Pt gives real estate underwriter permission to send referral to [facility]. Pt goal is eventually home going with her friend Adam & her son Ilya; pt daughter Dinorah lives 1 block away. Pt relayed Chip & children provide good support. Pt does not endorse any type of domestic abuse. Pt does not endorse anxiety, depression or other mental health concerns; negative Riley screen. Pt family assists with transportation. Patient's preferred pharmacy is [facility]. PCP verified as Dr. Bridges. Opportunity provided to ask questions, pt does not endorse any at this time. Plan is to return to [facility] to complete prison stay. Tasked Transition Center to send return to SNF referral to [facility]. Soft Top Installer spoke with Dilcia at [facility], they will have bed for [place] at [place]. Plan to prevent readmission is for pt [...] is improved with rest. Current wound pain 6/10. Vital Signs: BP 144/54 Pulse 95 Temp 36.3 C (97.3 F) (Temporal) Resp 18 Ht 149.9 cm (4' 11 ) Wt 103.1 kg (227 lb 3.2 oz) SpO2 99% BMI 45.89 kg/m Wound Assessment: Wound 10/24/24 1 Calf Right;Medial (Active) Wound 10/24/24 2 Other (comment) Calf Left;Posterior (Active) Wound Image 11/10/24 1000 Site Assessment Red;Moist;Painful 11/10/24 1000 Ana-wound Assessment Blanchable erythema;Raysal 11/10/24 1000 Dressing Type Xeroform;Abdominal dressing;Gauze Rolled/Kerlix [...] Right;Medial (Active) Wound Image 11/10/241099 Site Assessment Yellow;Moist;Painful;Raysal 11/10/241099 Ana-wound Assessment Blanchable erythema 11/10/241099 Wound Length (cm) 3.5 cm 11/10/241099 Wound Width (cm) 6 cm 11/10/241099 Wound Surface Area (cm^2) 16.49 cm^2 11/10/241099 Drainage Description Serosanguineous;Yellow 11/10/241099 Drainage Amount Moderate 11/10/241099 Dressing Type Xeroform;Abdominal dressing;Gauze Rolled/Kerlix 11/10/241099 Dressing Changed Changed 11/10/241099 Dressing Status Clean;Dry;Intact 11/10/241099 Wound Bed Slough (%) 100% 11/10/241099 Plan of care discussed with wound care services FREELANCE [employer] REPORTER Wound Plan Dressing: Right heel: Cleanse with [...] [facility]/Wound Care Preferred contact via Ext. [phone], [employer] Chat or [facility] W[facility] [place] DIRECTOR OF CODING: Codie March APRN-FREELANCE COURT REPORTER, CWS, COCN Occupational Therapy Evaluation Discharge Recommendations for Safe Patient Transition Post Acute Moderate Rehab Needs: Recommend moderate intensity rehab, Tolerate 1-2 hrs of therapy 3-5 days/wk, Subacute or chronic functional impairment (recommend returned to [facility] for continued OT to increase BUE strength, endurance, and promote highest level of functional independence during ADL tasks) Current Impairments Informing Therapy Recommendation: Ambulation status/safety, Cognition, Fall risk, ADL status, Endurance level, Caregiver needs/level of support Outreach Counselor Support for-: Mobility Deficits, ADL Deficits, Cognitive [...] little Scoring Daily Activity Raw Score: 12 [facility] G Code Modifier: CL Therapy Plan/HPI/occupational profile [...] C. difficile diarrhea CHF (congestive heart failure) ([facility]) Dental disease Diabetes mellitus type I ([facility]) Hypertension Hypothyroid Insomnia Kidney stone stage 3 Neuropathy Obesity Osteoarthritis Paroxysmal supraventricular tachycardia Peripheral neuropathy Plantar fasciitis Pulmonary HTN ([facility]) PVD (peripheral vascular disease) Visual impairment White [...] films, consider surgical intervention at that time. Telemetry/Cardiac Catheterization Technician: Yes Oxygen Used: room air Other: fall [...] Home: Facility (Patient is currently at [facility] for SNF, prior to that lived at [...] Assistance: Total assist (multiple foot wounds) Other: real estate underwriter introduced self, role and goals of OT. pt is agreeable to get into the chair after ADLS completed. sponge bath completed while supine, brief change, powder applied to sklin folds. Home Management - IADL Other: real estate underwriter introduced self, role and goals of OT. [...] to prior level of function and decrease resident care provider burden Disciplines: OT Problem: Standing Balance Dates: [...] Problems: Essential hypertension Diabetes mellitus type I ([facility]) Hyperkalemia Hypothyroid PVD (peripheral vascular disease) Hyponatremia Problem: Pain Goal: Patient goal is pain score less than 4, able to rest, and participant in treatment plan as appropriate Description: INTERVENTIONS: 1. Encourage patient or legal metals sales representative to report early pain and ask [...] per policy 9. Teach patient or legal metals sales representative interventions for comforting 11/10/2024 1006 by KIANNA Villarreal Outcome: Progressing Note: Evaluation of progress towards goal: monitor and treat pain as ordered 11/10/2024 1003 by KAINNA Villarreal Outcome: Progressing Note: Evaluation of progress [...] at the bedside 7. Instruct patient/ patient metals sales representative about use of safety devices 8. Include patient/ patient metals sales representative in decisions related to safety 11/10/2024 [...] Description: INTERVENTIONS: 1. Encourage patient or legal metals sales representative to report early pain and ask [...] per policy 9. Teach patient or legal metals sales representative interventions for comforting Outcome: Progressing Note: [...] at the bedside 7. Instruct patient/ patient metals sales representative about use of safety devices 8. Include patient/ patient metals sales representative in decisions related to safety Outcome: [...] that there are some limitations compared to [id number]-[id number] evaluations. We elected to proceed. Nephrology Daily [...] 27. Rheumatoid factor less than 10. Anti MINT WAFER DEPOSITOR anti Sands antibody titers anti chromatin antibody [...] PVR Kimberly Perez M.D. [facility] Thank you for your consultation and allowing us to participate in the care of Rupa Youngblood Gutierrez and please do not hesitate to call us with any questions at: Office: [phone] Office Answering Service: [phone] Please feel free to contact me through [employer] Secure chat during the daytime hours, if [...] Description: INTERVENTIONS: 1. Encourage patient or legal metals sales representative to report early pain and ask [...] per policy 9. Teach patient or legal metals sales representative interventions for comforting Outcome: Progressing Note: [...] at the bedside 7. Instruct patient/ patient metals sales representative about use of safety devices 8. Include patient/ patient metals sales representative in decisions related to safety Outcome: [...] hygiene technique. 7. Identify and instruct patient/patient metals sales representative in use of appropriate isolation precautions for identified infection/symptoms. 8. Provide and discuss with patient/patient metals sales representative on educational MDRO sheet. 9. Encourage and monitor nutritional status daily and consult software development test engineer if indicated. 10. Implement neutropenic guidelines as needed. Outcome: Progressing Note: Evaluation of progress towards goal: Problem: Knowledge Deficit Goal: Patient/patient metals sales representative demonstrates understanding of disease process, treatment [...] Cognition, Endurance level, Caregiver needs/level of support Outreach Counselor Support for-: Mobility Deficits, ADL Deficits, Cognitive [...] 6 Clicks: Basic Mobility Raw Score: 10 [facility] G Code Modifier: CL Therapy Plan Need [...] ability to bear weight on R. UE Telemetry/Cardiac Catheterization Technician: Yes Oxygen Used: room air Past Medical History: Diagnosis Date Anxiety C. difficile diarrhea CHF (congestive heart failure) ([facility]) Dental disease Diabetes mellitus type I ([facility]) Hypertension Hypothyroid Insomnia Kidney stone stage 3 Neuropathy Obesity Osteoarthritis Paroxysmal supraventricular tachycardia Peripheral neuropathy Plantar fasciitis Pulmonary HTN ([facility]) PVD (peripheral vascular disease) Visual impairment White [...] Living Type of Home: (Patient currently at [facility]) Home Layout: (Currently in a one level facility for SNF) Other : Patient presents from [facility]. Recent stay on 10/23/24 at [facility] for LE cellulitis and discharged to [facility] for therapy and antibiotics IV. Patient previously from home with family support. Reports NWB R. UE still at this time, brace/splint donned. Patient reports still working with therapy at [facility]. Prior Function Lives With: (Currently at facility, [facility]) Receives Help From: (Staff at facility for all ADLs/IADLs.) Level of Mobility: Needs assistance with ADLs or functional transfers or gait (Pivoting to w/c, NWB R. UE. Multiple LE wounds/foot wounds.) Homemaking Assistance: Needs assistance (Currently performed by [place] staff.) Hearing / Speech / Vision Hearing: [...] Description: INTERVENTIONS: 1. Encourage patient or legal metals sales representative to report early pain and ask [...] per policy 9. Teach patient or legal metals sales representative interventions for comforting Outcome: Progressing Note: [...] at the bedside 7. Instruct patient/ patient metals sales representative about use of safety devices 8. Include patient/ patient metals sales representative in decisions related to safety Outcome: [...] that there are some limitations compared to [id number] evaluations. We elected to proceed. NEPHROLOGY CONSULT [...] 27. Rheumatoid factor less than 10. Anti MINT WAFER DEPOSITOR anti Sands antibody titers anti chromatin antibody [...] Consistent Carb 210 grams (1800 kcal) 11/08/24 180 Social History: Social History Socioeconomic History Marital [...] exam Lungs: clear to auscultation bilaterally per patient scheduling coordinator: regular rate and rhythm, S1, S2 normal, [...] reintroduce loop diuretic tomorrow. CLAUDIA TAYLOR MD,PhD. [facility] ANY QUESTIONS FEEL FREE TO CALL: 1. OFFICE [phone] 2. ANSWERING SERVICE: [phone] Problem: Safety Goal: Patient will be injury free during hospitalization Description: INTERVENTIONS: 1. Assess patient's risk for falls and implement fall prevention plan of care per policy 2. Provide and maintain a safe environment 3. Proper use of double Identifiers 4. Medication administration using the 5 rights 5. Hand hygiene 6. Specimens are labeled at the bedside 7. Instruct patient/ patient metals sales representative about use of safety devices 8. Include patient/ patient metals sales representative in decisions related to safety Outcome: [...] hygiene technique. 7. Identify and instruct patient/patient metals sales representative in use of appropriate isolation precautions for identified infection/symptoms. 8. Provide and discuss with patient/patient metals sales representative on educational MDRO sheet. 9. Encourage and monitor nutritional status daily and consult software development test engineer if indicated. 10. Implement neutropenic guidelines as needed. Outcome: Progressing Note: Evaluation of progress towards goal: IV abt cont Problem: Knowledge Deficit Goal: Patient/patient metals sales representative demonstrates understanding of disease process, treatment [...] Description: INTERVENTIONS: 1. Encourage patient or legal metals sales representative to report early pain and ask [...] per policy 9. Teach patient or legal metals sales representative interventions for comforting Outcome: Progressing Note: [...] at the bedside 7. Instruct patient/ patient metals sales representative about use of safety devices 8. Include patient/ patient metals sales representative in decisions related to safety Outcome: [...] hygiene technique. 7. Identify and instruct patient/patient metals sales representative in use of appropriate isolation precautions for identified infection/symptoms. 8. Provide and discuss with patient/patient metals sales representative on educational MDRO sheet. 9. Encourage and monitor nutritional status daily and consult software development test engineer if indicated. 10. Implement neutropenic guidelines as needed. Outcome: Progressing Note: Evaluation of progress towards goal: Continue atb Problem: Knowledge Deficit Goal: Patient/patient metals sales representative demonstrates understanding of disease process, treatment [...] Progressing Note: Evaluation of progress towards goal: lining caser to f/u Problem: Potential for Compromised Skin [...] supplement as ordered 13. Collaborate with clinical software development test engineer 14. Include patient/ patient's metals sales representative in decisions related to nutrition Outcome: [...] continue external cath [facility] Procedure note Midline placement note: Dynamic program clinician: Georgina Valenzuela RN Prescribed IV therapy: cefepime x11 days History / Labs / Allergies were reviewed prior to insertion Any contraindications/considerations prior to placement: NA Approvals required before insertion: Nephrology by MD Perez Bedside time out performed with nurse Chavez utilizing two identifiers Consent for MST Powermidline completed by patient and is located in the chart. Midline: Product type: 4 fr SL Bard Powermidline inserted into the right basilic vein Ref: [id number] Lot: [id number] Exp: 12-14-2025 Catheter length 10 cm with 0 cm external Number of attempts: 1 Dressed per protocol with statlock and CHG tegaderm Lidocaine used during procedure: intradermal administration conc 1% approximately 1mL Lot #: [id number] Exp: 08-15-2026 Midline catheter tip is located [...] pain during infusion. documented in this encounter [facility] 11-13-2024 Hospital course Narrative Images from the original note were not included. [facility] INTERNAL MEDIC[facility] [address] [address] Hospital Medicine Discharge Summary Patient: Rupa Gutierrez Date of : 1940 Room: [facility] Encounter date: 11/13/24 Hospital Day: 6 DATE OF ADMISSION: 11/08/2024 DATE OF DISCHARGE:11/13/2024 DISCHARGE DIAGNOSES Principal Problem: Pressure injury of right heel, unstageable ([facility]) Active Problems: Lymphedema Diabetes mellitus type I ([facility]) Hyperkalemia Hypothyroid PVD (peripheral vascular disease) Hyponatremia Venous stasis ulcer of right lower leg with edema of right lower leg ([facility]) Venous stasis ulcer of left lower leg with edema of left lower leg ([facility]) CONSULTANTS none PCP: ANGELINE BRIDGES MD PROCEDURES [...] Procedure Abnormality Status --------- ------ Light Blue Top[[id number]] Final result Please view results for these [...] Procedure Abnormality Status --------- ------ Light Blue Top[[id number]] Final result Please view results for these [...] signed: Kaushik Mcgee MD. DISCHARGE INSTRUCTION Disposition: long term facility Condition: Stable Activity: activity as tolerated [...] this patient. JAM Dunlap 11/13/2024 12:25 PM [facility] Almazan [facility] Internal Medicine 7AM-7PM & 7PM-7AM: EpicChat or page through On-Call Finder. JAM Dunlap 11/13/24 1234 I, Steven Mercado MD, personally performed the face to face diagnostic evaluation on this patient. I have reviewed the CYNTHIA's History, Exam, and MDM and agree with the assessment and plan as written. I have reviewed all laboratory findings and imaging reports/films. Dr tSeven Mercado MD, MRCP 11/13/2024 6:24 PM documented in this encounter [facility] 11-12-2024 Hospital Discharge instructions Cintia Bhakta RN - 11/12/2024 1:26 PM EDT Nursing Home Facility, please call and schedule the following appointments: [facility] Urology for nj catheter at discharge follow up. Phone number: [phone] Nephrology consultants of [facility] for an appointment in 3-4 weeks. Phone number: [phone] Please make sure patient has appointments to follow up with the [facility] at [phone] The following attachments cannot be sent through Care Everywhere.Lymphedema (Persian)documented in this encounter [facility] 11-12-2024 History of Present illness Narrative Images from the original note were not included. [facility] EBONY ALMAZAN [facility] INTERNAL MEDICINE [facility] [address] [facility] [address] Hospital Medicine Progress Note Patient: Rupa Gutierrez Date of : 1940 Room: [facility]/01 PCP: ANGELINE BRIDGES MD Admission date: 11/08/2024 [...] Procedure Abnormality Status --------- ------ Light Blue Top[[id number]] Final result Please view results for these [...] Problem: Pressure injury of right heel, unstageable ([facility]) Active Problems: Lymphedema Diabetes mellitus type I ([facility]) Hyperkalemia Hypothyroid PVD (peripheral vascular disease) Hyponatremia Venous stasis ulcer of right lower leg with edema of right lower leg ([facility]) Venous stasis ulcer of left lower leg with edema of left lower leg ([facility]) ASSESSMENT & PLAN Cellulitis lower extremity Lymphedema [...] 1-2 days JAM Dunlap 11/12/2024 12:51 PM [facility] 7AM-7PM & 7PM-7AM: EpicChat [...] from the original note were not included. [facility] INTERNAL MEDICINE [facility] - ACUTE CARE [address] [facility] [id number] Hospital Medicine Progress Note Patient: Rupa Gutierrez Date of : 1940 Room: [facility] PCP: ANGELINE BRIDGES MD Admission date: 11/08/2024 [...] Problem: Pressure injury of right heel, unstageable ([facility]) Active Problems: Lymphedema Diabetes mellitus type I ([facility]) Hyperkalemia Hypothyroid PVD (peripheral vascular disease) Hyponatremia Venous stasis ulcer of right lower leg with edema of right lower leg ([facility]) Venous stasis ulcer of left lower leg with edema of left lower leg ([facility]) ASSESSMENT & PLAN Cellulitis lower extremity Lymphedema [...] JAM Dunlap 11/11/2024 1:56 PM [facility] Internal Medicine 7AM-7PM & 7PM-7AM: EpicChat or page through On-Call Finder. JAM Dunlap 11/11/24 4953 I, Steven Mercado MD, personally performed the [...] 0.0137hrs- T 1/2= 50.5hrs Paulino Rich PharmD [facility] NUTRITION ADULT INITIAL EVALUATION NUTRITION ASSESSMENT Reason To Be Seen: Received nutritional trigger for pressure injury on right heel Hospital Occurrences: Pt admitted with lymphedema and pressure injuries Admit Diagnosis: Patient Active Problem List Diagnosis Abdominal pain Calculus of ureter BMI 45.0-49.9, adult ([facility]) Morbid obesity ([facility] Mild tricuspid regurgitation Pulmonary hypertension ([facility]) Essential hypertension Preop cardiovascular exam Lymphedema Diabetes mellitus type I ([facility]) Cellulitis of lower extremity, unspecified laterality Hyperkalemia Hypothyroid PVD (peripheral vascular disease) Hyponatremia Pressure injury of right heel, unstageable ([facility]) Venous stasis ulcer of right lower leg with edema of right lower leg ([facility]) Venous stasis ulcer of left lower leg with edema of left lower leg ([facility]) Past Medical History: Past Medical History: Diagnosis Date Anxiety C. difficile diarrhea CHF (congestive heart failure) ([facility]) Dental disease Diabetes mellitus type I ([facility]) Hypertension Hypothyroid Insomnia Kidney stone stage 3 Neuropathy Obesity Osteoarthritis Paroxysmal supraventricular tachycardia Peripheral neuropathy Plantar fasciitis Pulmonary HTN ([facility]) PVD (peripheral vascular disease) Visual impairment White [...] per nutrition flow sheet- Skin: Skin Color: Raysal (11/10/24 0726) Skin Temp: Warm, Dry (11/10/24 0726) Skin Integrity: Redness, Weeping (ulcer wounds located to lower extremities bilaterally, seeping noted with redness) (11/08/24 1436) Wound: Wound 10/26/24 4 Other (comment) Calf Right;Medial-Site Assessment: Yellow, Moist, Painful, [place] (11/10/24 1100) Wound 10/24/24 2 Other (comment) [...] 18 -- 14 AST U/L 19 -- -- < > = values in this interval not displayed. Results from last 7 days Lab Units 11/10/24 0800 11/10/24 0528 11/09/24 2135 11/09/24 1643 11/09/24 1127 11/09/24 0612 11/08/24 2125 BEDSIDE GLUCOSE mg/dL 100* -- 211* [...] 90 90 Lab Results Component Value Date [id number] 213 11/09/2024 Lab Results Component Value Date [...] 650 mg 650 mg oral Q6H PRN Miguel Douglas APRN-FREELANCE COURT REPORTER 650 mg at 11/08/241811 cefTRIAXone (ROCEPHIN) IVPB 2000 mg/50 mL in iso-osmotic dextrose (40 mg/mL premix) 2,000 mg intravenous Q24H Miguel Douglas APRN-MARTÍNEZ Stopped at 11/09/24 1742 dextrose (GLUTOSE) 40 % gel 15 g 15 g oral PRN Miguel Douglas APRN-MARTÍNEZ dextrose 5 % (D5W) infusion 100 mL/hr intravenous Continuous PRN Miguel Douglas APRN-MARTÍNEZ dextrose 50 % in water (D50W) 50% [...] 2-10 Units subcutaneous With meals and nightly Miguel Douglas APRN-MARTÍNEZ 4 Units at 11/10/24 1229 levothyroxine (SYNTHROID, LEVOTHROID) tablet 25 mcg 25 mcg oral Daily Zenobia Funez MD 25 mcg at 11/10/24 0459 LORazepam (ATIVAN) tablet 0.5 mg 0.5 mg oral Daily PRN Miguel Douglas APRN-FREELANCE COURT REPORTER 0.5 mg at 11/08/24 205 magnesium sulfate IVPB 2000 mg/50 mL in iso-osmotic water (40 mg/mL premix) 2,000 mg intravenous PRN Miguel Douglas APRN-MARTÍNEZ magnesium sulfate IVPB 4000 mg/100 mL in iso-osmotic water (40 mg/mL premix) 4,000 mg intravenous PRN Miguel Douglas APRN-MARTÍNEZ ondansetron (PF) (ZOFRAN) injection 4 mg 4 mg intravenous Q6H PRN Miguel D Krotzer, SUPERVISOR REWORK-FREELANCE COURT REPORTER pantoprazole (PROTONIX) EC tablet 40 mg 40 mg oral QAM AC Miguel Douglas, SUPERVISOR REWORK-FREELANCE [employer] REPORTER 40 mg at 11/10/24 0459 pregabalin (LYRICA) capsule 25 mg 25 mg oral BID Margot Leiva, SUPERVISOR REWORK-FREELANCE [employer] REPORTER 25 mg at 11/10/24 1229 sodium chloride 0.9 % flush 10 mL 10 mL intravenous Once in imaging Margot Leiva APRN-MARTÍNEZ sodium chloride 0.9 % flush 3 mL 3 mL intravenous PRN Miguel Douglas, SUPERVISOR REWORK-FREELANCE [employer] REPORTER sodium chloride 0.9 % flush 3 mL 3 mL intravenous Q12H MARLENE Miguel Douglas, SUPERVISOR REWORK-FREELANCE [employer] REPORTER 3 mL at 11/10/24 1229 sodium chloride 0.9 % flush bag 25 mL intravenous PRN Miguel Douglas, SUPERVISOR REWORK-FREELANCE [employer] REPORTER sodium chloride 0.9 % infusion 20 mL/hr intravenous Continuous PRN Miguel Douglas, SUPERVISOR REWORK-FREELANCE [employer] REPORTER vancomycin (VANCOCIN) IVPB Dosed by Levels intravenous Dosed by Levels Miguel Douglas, SUPERVISOR REWORK-FREELANCE [employer] REPORTER zolpidem (AMBIEN) tablet 10 mg 10 mg oral Nightly PRN Miguel Douglas, SUPERVISOR REWORK-FREELANCE COURT REPORTER 10 mg at 11/09/24 2107 Nutrition Findings/Summary: noted stable wt Anthropometrics: Ht [...] 01/29/22 105.7 kg (233 lb 0.4 oz) [place] Body Weight: 44.1 kg Percent [place] Body Weight: 234 % Body Mass Index: Body mass index is 45.89 kg/m . BMI Category: Obese class 3 (> or = 40.00) Diet/ Nutrition Order Review: Dietary Orders (From admission, onward) Start Ordered 11/10/24 1132 Adult nutrition supplements Continuous Question Answer Comment Diet Type or Consistency: Regular Texture Select Supplement: Wound Healing Supplement Frequency: BID 11/10/24 1131 11/08/24 180 Adult diet Regular Texture; Consistent Carb 210 [...] <25% [] NPO [] Unable to assess [place] Body Weight (44 kg) used to estimate nutrition needs Estimated Energy Needs: ~7939-9863 kcals daily. Method and weight used: 30-35 kcal/kg IBW Estimated Protein Needs: ~66-110 grams daily. Method and weight used: 1.5-2.5 gm/kg IBW Estimated Fluid Needs: ~1922-8319 ml daily. Method Used: 1 ml/kcal General [...] Goal achieved Melanie Martinez RD.,LD. Clinical Dietitian [facility] [phone] 11/10/24 Images from the original note were not included. [facility] INTERNAL MEDICINE [facility] [address] [facility] [phone] Hospital Medicine Progress Note Patient: Rupa Gutierrez Date of : 1940 Room: [facility]/ PCP: ANGELINE BRIDGES MD Admission date: 11/08/2024 [...] Procedure Abnormality Status --------- ------ Light Blue Top[[id number]] Final result Please view results for these [...] Problem: Pressure injury of right heel, unstageable ([facility]) Active Problems: Lymphedema Diabetes mellitus type I ([facility]) Hyperkalemia Hypothyroid PVD (peripheral vascular disease) Hyponatremia Venous stasis ulcer of right lower leg with edema of right lower leg ([facility]) Venous stasis ulcer of left lower leg with edema of left lower leg ([facility]) ASSESSMENT & PLAN Cellulitis lower extremity Lymphedema [...] planning: tbd pending hem/onc consult. JAM Dunlap 11/10/2024 1:18 PM [facility] Internal Medicine 7AM-7PM & 7PM-7AM: EpicChat or page through On-Call Finder. JAM Dunlap 11/10/24 1321 I, Steven Mercado MD, personally performed the [...] Procedure Component Value Units Date/Time Blood culture [[id number]] Collected: 11/08/24 1453 Specimen: Blood, Venous Updated: 11/08/24 1507 Blood culture [[id number]] Collected: 11/08/24 1452 Specimen: Blood, Venous Updated: 11/08/24 1507 Wound culture [[id number]] Collected: 11/08/24 1432 Specimen: Swab from Heel, Right Updated: 11/08/24 1506 Wound culture [[id number]] Collected: 11/08/24 1432 Specimen: Swab from Heel, Left Updated: 11/08/24 1505 Concurrent Antibiotics: Anti-infectives (From admission, onward) Start Dose/Rate Route Frequency Ordered Stop 11/08/24 1830 vancomycin (VANCOCIN) 2,000 mg in sodium chloride 0.9 % 500 mL IVPB W/ADAPTER 2,000 mg 250 mL/hr over 120 Minutes intravenous Once 11/08/24 18211/08/24 1825 vancomycin (VANCOCIN) IVPB Dosed by Levels intravenous Dosed by Levels 11/08/24 18211/08/24 1745 cefTRIAXone (ROCEPHIN) IVPB 2000 mg/50 mL [...] Paulino Skelton RPH documented in this encounter [employer] 11-11-2024 Consult note Associated Order (s): CONSULT [...] that there are some limitations compared to [id number] evaluations. We elected to proceed. Reason for [...] C. difficile diarrhea CHF (congestive heart failure) ([facility]) Dental disease Diabetes mellitus type I ([facility]) Hypertension Hypothyroid Insomnia Kidney stone stage 3 Neuropathy Obesity Osteoarthritis Paroxysmal supraventricular tachycardia Peripheral neuropathy Plantar fasciitis Pulmonary HTN ([facility]) PVD (peripheral vascular disease) Visual impairment White [...] Range Case Report Clinical Pathology Report Case: [id number] Authorizing Provider: JAM Dunlap Collected: 11/09/2024 1316 Ordering Location: [facility] Received: 11/09/2024 1354 [facility] Care Pathologist: Tameka Adams DO Specimen: Blood, Venous Final Diagnosis Normocytic anemia without significant polychromasia or morphologic evidence of hemolysis. Thrombocytopenia with morphologically unremarkable platelets. Rare large platelets identified. Microscopic Description CBC (11/09/2024): WBC = 10.5x10E9/L; HGB = 9.9g/dL; HCT =29.4% MCV = 90fL; PLT = 00e21O4/L White blood cells are within normal limits [...] pain Calculus of ureter BMI 45.0-49.9, adult ([facility]) Morbid obesity ([facility]) Mild tricuspid regurgitation Pulmonary hypertension ([facility]) Essential hypertension Preop cardiovascular exam Lymphedema Diabetes mellitus type I ([facility]) Cellulitis of lower extremity, unspecified laterality Hyperkalemia Hypothyroid PVD (peripheral vascular disease) Hyponatremia Pressure injury of right heel, unstageable ([facility]) Venous stasis ulcer of right lower leg with edema of right lower leg ([facility]) Venous stasis ulcer of left lower leg with edema of left lower leg ([facility]) Code Status: Full Code Assessment/Plan Impression: New [...] you for the consultation. Eliseo Moody M.D. [facility] [address] [place] [address] November 11, 2024, 4:52 PM Podiatric consultation. Patient is seen for evaluation of decubitus ulceration plantar surface of the right heel; which apparently developed several weeks previous after stepping on some type of cord. Patient has been admitted from local custodial through ED for weeping ulcerations of the [...] noted. Many Gram-negative cocci bacilli; most likely metals sales representative of contamination and wound bioburden. Impression: [...] and weeping wounds, presents from a local custodial, recently hospital discharged 10/27/2024. . Past medical [...] C. difficile diarrhea CHF (congestive heart failure) ([facility]) Dental disease Diabetes mellitus type I ([facility]) Hypertension Hypothyroid Insomnia Kidney stone stage 3 Neuropathy Obesity Osteoarthritis Paroxysmal supraventricular tachycardia Peripheral neuropathy Plantar fasciitis Pulmonary HTN ([facility]) PVD (peripheral vascular disease) Visual impairment White coat syndrome with diagnosis of hypertension Patient Active Problem List Diagnosis Abdominal pain Calculus of ureter BMI 45.0-49.9, adult ([facility]) Morbid obesity ([facility] Mild tricuspid regurgitation Pulmonary hypertension ([facility]) Essential hypertension Preop cardiovascular exam Lymphedema Diabetes mellitus type I ([facility]) Cellulitis of lower extremity, unspecified laterality Hyperkalemia Hypothyroid PVD (peripheral vascular disease) Hyponatremia Pressure injury of right heel, unstageable ([facility]) Venous stasis ulcer of right lower leg with edema of right lower leg ([facility]) Venous stasis ulcer of left lower leg with edema of left lower leg ([facility]) PSH: Past Surgical History: Procedure Laterality Date [...] Assessment Red;Moist;Painful 11/10/24 1000 Ana-wound Assessment Blanchable erythema;Raysal 11/10/24 1000 Dressing Type Xeroform;Abdominal dressing;Gauze Rolled/Kerlix [...] Other (comment) Calf Right;Medial (Active) Wound Image 11/10/24 1100 Site Assessment Yellow;Moist;Painful;Raysal 11/10/24 1100 Ana-wound Assessment Blanchable erythema 11/10/24 1100 Wound Length (cm) 3.5 cm 11/10/24 1100 Wound Width (cm) 6 cm 11/10/24 1100 Wound Surface Area (cm^2) 16.49 cm^2 11/10/24 1100 Drainage Description Serosanguineous;Yellow 11/10/24 1100 Drainage Amount Moderate 11/10/24 1100 Dressing Type Xeroform;Abdominal dressing;Gauze Rolled/Kerlix 11/10/24 1100 Dressing Changed Changed 11/10/241099 Dressing Status Clean;Dry;Intact [...] Procedure Component Value Units Date/Time Blood culture [[id number]] Collected: 11/08/24 145 Specimen: Blood, Venous Updated: 11/09/24 230 CULTURE RESULTS NO GROWTH 1 DAY Narrative: Suboptimal volume of blood collected, Results may be affected. Blood culture [[id number]] Collected: 11/08/24 145 Specimen: Blood, Venous Updated: 11/09/24 230 CULTURE RESULTS NO GROWTH 1 DAY Wound culture [[id number]] (Abnormal) Collected: 11/08/24 143 Specimen: Swab from Heel, Right Updated: 11/10/24 0829 CULTURE RESULTS Culture in progress GRAM STAIN 10 to 24 White Blood Cells/LPF 0 to 1 Squamous Epithelial Cells/LPF Many Gram negative coccobacilli Wound culture [[id number]] (Abnormal) Collected: 11/08/24 143 Specimen: Swab from Heel, Left Updated: 11/10/24 [...] Problem: Pressure injury of right heel, unstageable ([facility]) Active Problems: Lymphedema Diabetes mellitus type I ([facility]) Hyperkalemia Hypothyroid PVD (peripheral vascular disease) Hyponatremia Venous stasis ulcer of right lower leg with edema of right lower leg ([facility]) Venous stasis ulcer of left lower leg with edema of left lower leg ([facility]) Dressing/Skin Care/Edema Management/Offloading: - wash all wounds [...] for the outpatient wound care clinic at [facility] within 1-2 weeks of discharge. [...] Meehan 11/10/24 1111 documented in this encounter [facility] 11-10-2024 History of Present illness Narrative Received a call from [facility] acute care nurse, Cherelle Isbell RN, requesting inpatient consult from Dr. Moody for thrombocytopenia. Message to Dr. Moody and was notified that she is off today. Updated floor and offered our male impersonator number. They feel patient will be OK today, but asked if consult could be done tomorrow? New message to Dr. Moody to see if she can consult tomorrow when she is in office. documented in this encounter [facility] 11-09-2024 History and physical note Images from the original note were not included. [facility] INTERNAL MEDICINE [facility] [address] [facility] [id number] Hospital Medicine History & Physical Patient: Rupa [...] C. difficile diarrhea, CHF (congestive heart failure) ([facility]), Dental disease, Diabetes mellitus type I ([facility]), Hypertension, Hypothyroid, Insomnia, Kidney stone, Neuropathy, Obesity, Osteoarthritis, Paroxysmal supraventricular tachycardia, Peripheral neuropathy, Plantar fasciitis, Pulmonary HTN (CMS-HCC), PVD (peripheral vascular disease), Visual impairment, and White coat syndrome with diagnosis of hypertension. Past Surgical History: Patient has a past surgical history that includes Discectomy; section; Appendectomy (195); Neck surgery; Tonsillectomy; Dilation and curettage of [...] Intake/Output Summary (Last 24 hours) at 11/09/2024 0906 Last data filed at 11/08/2024 2237 Gross [...] Procedure Abnormality Status --------- ------ Light Blue Top[[id number]] Final result Please view results for these [...] Extra Tubes. Procedure Abnormality Status --------- ------ [facility] TOP[[id number]] Final result Please view results for these [...] Procedure Abnormality Status --------- ------ Light Blue Top[[id number]] Final result Please view results for these [...] Problems: Essential hypertension Diabetes mellitus type I ([facility]) Hyperkalemia Hypothyroid PVD (peripheral vascular disease) Hyponatremia [...] planning: TBD. JAM Dunlap 11/09/2024 9:13 AM [facility] 7AM-7PM & 7PM-7AM: EpicChat or page through On[employer]Call [employer]. JAM Dunalp 11/09/24 7784 JAM Dunlap 11/09/24 4149 ISteven MD, personally performed the face to [...] 11/09/2024 4:46 PM documented in this encounter [facility] 11-08-2024 Emergency department Note Images from the original note were not included. [facility] - EMERGENCY Pt Name: Rupa Gutierrez Birthdate: 1940 Chief Complaint: Chief Complaint Patient presents with Leg Pain History of Present Illness: Initial evaluation performed at 12:[address] Kirby. Patient is a 83 y.o. female who presents to the ED for evaluation of bilateral lower leg pain. Pt states she is at [place] for antibiotic treatment for bilateral lower leg cellulitis. Pt states she was admitted on 10/23/2024 for the cellulitis and was prescribed Keflex. Pt denies a fever. Pt states she is diabetic. Pt has history of lymphedema. History provided by: Patient assistant womens volleyball coach used: No Past Medical History: Past Medical History: Diagnosis Date Anxiety C. difficile diarrhea CHF (congestive heart failure) ([facility]) Dental disease Diabetes mellitus type I ([facility]) Hypertension Hypothyroid Insomnia Kidney stone stage 3 Neuropathy Obesity Osteoarthritis Paroxysmal supraventricular tachycardia Peripheral neuropathy Plantar fasciitis Pulmonary HTN ([facility]) PVD (peripheral vascular disease) Visual impairment White [...] motor subscore is 6. Procedure: Procedures Re-evaluation: I, Mireya Thomas (scribe), documented on behalf and in the [...] available in inpatient encounters. Please contact a senior linux systems administrator. . Please note that portions of this note were completed with a voice recognition program. Efforts were made to edit the dictations but occasionally words are mis-transcribed. Mireya Thomas 11/08/24 1303 Mireya Thomas 11/08/24 1320 Mireya Thomas 11/08/24 1353 Mireya William 11/08/24 1534 Mireya William 11/08/24 1543 Dylan Kirby DO 11/12/24 1425 Pt presents to ED via EMS with c/o bilateral lower leg pain and back pain. Pt is at [place] for antibiotic treatment for bilateral lower leg cellulitis. Pt reporting pain and requested to be evaluated at the ED. Pt daighter agreed. Pt with hx of neuopathy and DMII. Pt confused at baseline and acting appropriate documented in this encounter [facility] 10-19-2024 Note HPI Reported by patient. Hand Dominance: right Location: right distal radius fracture sustained 7 + weeks ago, treated non operative fashion by Dr. Lerma at [facility], referred to Dr. Ortiz. Quality: ache Severity: [...] films, consider surgical intervention at that time. [facility] 10-14-2024 Miscellaneous Notes Soft Top Installer returned call to Rosmery with Rukhsana after message left on nurse line. Rosmery requested verification of dressing change frequency. Soft Top Installer informed Rosmery of daily dressing change frequency. Rosmery verbalized understanding. documented in this encounter [facility] 10-14-2024 Telephone encounter Note Soft Top Installer returned call to Rosmery with Rukhsana after message left on nurse line. Rosmery requested verification of dressing change frequency. Soft Top Installer informed Rosmery of daily dressing change frequency. Rosmery verbalized understanding. [facility] 10-13-2024 History of Present illness Narrative Pt. [...] a 83 y.o. female who presents to [facility] for evaluation of weeping of [...] pain Calculus of ureter BMI 45.0-49.9, adult ([facility]) Morbid obesity ([facility]) Mild tricuspid regurgitation Pulmonary hypertension ([facility]) Essential hypertension Preop cardiovascular exam Lymphedema Past Medical History: Diagnosis Date Anxiety C. difficile diarrhea CHF (congestive heart failure) ([facility]) Dental disease Diabetes mellitus type I ([facility]) Hypertension Hypothyroid Insomnia Kidney stone stage 3 Neuropathy Obesity Osteoarthritis Paroxysmal supraventricular tachycardia Peripheral neuropathy Plantar fasciitis Pulmonary HTN ([facility]) PVD (peripheral vascular disease) Visual impairment White [...] and leg. Short term goal: medical compliance jail goal: wound closure Patient verbalize understanding of [...] procedures Referring and communicating with other health career development consultant (not separately reported) Documenting clinical information in the electronic or other health record - JAM MEEHAN 10/13/24 12:34 PM Codie March APRN, MARTÍNEZ, CWS, BETO [facility]: [phone] JAM Meehan 10/13/24 8842 documented in this encounter [facility] 10-13-2024 Instructions Lexy Martins RN - 10/13/2024 11:00 AM EDT [facility] Wound Management Treatment Plan Wound Location(s): [...] FOLLOW UP ON: Make appt. with your dispensing lead for the right great toe. Length Width Depth Wound drainage Type Description copious Serous serous documented in this encounter [facility] 09-11-2024 History of Present illness Narrative Rupa Gutierrez Date of visit: 09/11/2024 Date of : 1940 Age: 83 y.o. 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 difficile diarrhea CHF (congestive heart failure) ([facility]) Dental disease Diabetes mellitus type I ([facility]) Hypertension Hypothyroid Insomnia Kidney stone stage 3 Neuropathy Obesity Osteoarthritis Paroxysmal supraventricular tachycardia ([facility]) Peripheral neuropathy Plantar fasciitis Pulmonary HTN ([facility]) PVD (peripheral vascular disease) ([facility]) Visual impairment White coat syndrome with diagnosis [...] BRIDGES MD Referring Physician: Angeline Bridges MD [id number] [place] [address] documented in this encounter [facility] 09-10-2024 Miscellaneous Notes Left message for patient to remind them to bring their most current medication list with them to their appointment. documented in this encounter [facility] 09-10-2024 Telephone encounter Note Left message for patient to remind them to bring their most current medication list with them to their appointment. [facility] 09-09-2024 Miscellaneous Notes No objection Patient left voicemail requesting clearance for surgery sent via fax to [facility] r[place] per patient request as she stated she broke my arm and it was a bad break that requires surgery now documented in this encounter [facility] 09-09-2024 Telephone encounter Note No objection [facility] 09-09-2024 Telephone encounter Note Patient left voicemail requesting clearance for surgery sent via fax to [facility] per patient request as she stated she broke my arm and it was a bad break that requires surgery now [facility] 07-31-2024 Miscellaneous Notes Patient called requesting Lasix refill be sent to [facility] documented in this encounter [facility] 07-31-2024 Telephone encounter Note Patient called requesting Lasix refill be sent to [facility] 07-08-2024 History of Present illness Narrative Rupa [...] We saw her today with telemedicine through [employer]. She is on Levemir 40 in the [...] Chronic kidney disease, stage III (moderate) (HCC) ([facility]) Diabetes ([facility]) Dietary counseling and surveillance Essential (primary) hypertension ([facility]) 10/26/2008 History of being hospitalized C Difficile Hypertension ([facility]) Hypothyroidism, unspecified ([facility]) Insomnia jail (current) use of insulin ([facility] Mixed hyperlipidemia ([facility] Morbid obesity with body mass index (BMI) of 40.0 to 49.9 ([facility]) Type 2 diabetes mellitus with other circulatory complications ([facility]) 1950 Vitamin D deficiency, unspecified Past Surgical [...] hyperglycemia, with long-term current use of insulin ([facility]) We will continue with Levemir 50 units, NovoLog 16 breakfast 20 at dinner. Vitamin D deficiency Insulin long-term use ([facility]) Primary hypertension ([facility]) Hyperlipemia, mixed ([facility]) Encounter for dietary consultation Diet and exercise reviewed with the patient Acquired hypothyroidism ([facility]) We will continue with levothyroxine 25 mcg 5 days a week and 50 mcg 2 days a week. 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 documented in this encounter [facility] 02-18-2024 History of Present illness Narrative Images from the original note were not included. Subjective Patient ID: Enriqueta Gutierrez is a 83 y.o. female who presents for DM Foot Care (PCP: Marta Dee 02/03/24, A1C: 9.7, BS: 193). HPI Chief [...] Jaclyn Potts DPM documented in this encounter [facility] 02-18-2024 Instructions Jaclyn Potts DPM - 02/18/2024 3:30 PM EDT As noted documented in this encounter [facility] 02-14-2024 History of Present illness Narrative Images [...] 27. Rheumatoid factor less than 10. 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 difficile diarrhea CHF (congestive heart failure) ([facility]) Diabetes mellitus type I ([facility]) Hyperlipidemia Hypertension Hypothyroid Insomnia Kidney stone Obesity Osteoarthritis Paroxysmal supraventricular tachycardia ([facility]) Peripheral neuropathy Plantar fasciitis PVD (peripheral vascular disease) ([facility]) White coat syndrome with diagnosis of hypertension [...] Studies: No results found for: IRONSAT , [id number] , FOLATE Mineral and Bone Labs: Lab [...] of this patient. Please contact me at [phone] (Office) or [phone] (Answering service) with any questions. Pam Brothers, SUPERVISOR REWORK-FREELANCE COURT REPORTER [facility] This note was created with the assistance of a speech-recognition program. Although the intention is to generate a document that actually reflects the content of the visit, no guarantees can be provided that every mistake has been identified and corrected by editing. JAM Mckeon 02/14/24 1246 documented in this encounter [facility] 11-06-2023 Miscellaneous Notes Pt. Called to cancel her appointment because her son is very sick in the hospital and he might no make it. She is requesting if the lab work that she has done for this appointment can be taken in January when is her next appointment. documented in this encounter [facility] 11-06-2023 Telephone encounter Note Pt. Called to cancel her appointment because her son is very sick in the hospital and he might no make it. She is requesting if the lab work that she has done for this appointment can be taken in January when is her next appointment. [facility] 11-06-2023 Miscellaneous Notes LVM for patient to return phone call to office to confirm appt /23 w/ pam at 1:40pm in [place] documented in this encounter [facility] 11-06-2023 Telephone encounter Note LVM for patient to return phone call to office to confirm appt /23 w/ [facility] 09-04-2023 Miscellaneous Notes 2ND LVM for patient to confirm appt as well to remind to have labs done also to move patient spot up from 3:20 documented in this encounter [facility] 09-04-2023 Telephone encounter Note 2ND LVM for patient to confirm appt as well to remind to have labs done also to move patient spot up from 3:20 [facility] 08-29-2023 Miscellaneous Notes I left a message requesting for a call back to confirm her appointment documented in this encounter [facility] 08-29-2023 Telephone encounter Note I left a message requesting for a call back to confirm her appointment [facility] 07-24-2023 History of Present illness Narrative Images [...] Jaclyn Potts DPM documented in this encounter [facility] 07-24-2023 Instructions Jaclyn Potts DPM - 07/24/2023 10:30 AM EST Instructions as noted documented in this encounter [facility] Evaluation note Diagnosis Type 2 diabetes mellitus with stage 1 decubitus ulcer of toe (CMS/HCC)- Primary Type II diabetes mellitus with peripheral circulatory disorder ([facility] Type II or unspecified type diabetes mellitus with peripheral circulatory disorders, not stated as uncontrolled Diabetic polyneuropathy associated with type 2 diabetes mellitus ([facility]) Encounter for long-term (current) use of insulin (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) Type II or unspecified type diabetes mellitus with peripheral circulatory disorders, not stated as uncontrolled Diabetic polyneuropathy associated with type 2 diabetes mellitus ([facility]) Encounter for long-term (current) use of insulin ([facility]) Encounter for long-term (current) use of insulin documented in this encounter [facility]* Diagnosis Type 2 diabetes mellitus with hyperglycemia, with long-term current use of insulin ([facility])- Primary Vitamin D deficiency Insulin long-term use ([facility]) Encounter for long-term (current) use of insulin Primary hypertension ([facility]) Unspecified essential hypertension Hyperlipemia, mixed ([facility]) Mixed hyperlipidemia Encounter for dietary consultation Acquired hypothyroidism ([facility]) Unspecified hypothyroidism Class 3 severe obesity due to excess calories with serious comorbidity and body mass index (BMI) of 40.0 to 44.9 in adult (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 Chronic lymphocytic thyroiditis documented in this encounter [facility]* Diagnosis Stage 3b chronic kidney disease ([facility])- Primary documented in this encounter [facility] Diagnosis Essential hypertension- Primary Unspecified essential hypertension Preop cardiovascular exam Pre-operative cardiovascular examination documented in this encounter [facility]* Diagnosis Lymphedema- Primary Other noninfectious lymphedema Lymphorrhea documented in this encounter [facility]* Diagnosis Pressure injury of right heel, unstageable ([facility])- Primary Lymphedema Other noninfectious lymphedema Acute kidney injury superimposed on CKD Multiple open wounds of foot Hyperkalemia Hyperpotassemia Urinary retention Unspecified retention of urine Lymphedema Other noninfectious lymphedema Hyperkalemia Hyperpotassemia Hypothyroid Unspecified hypothyroidism PVD (peripheral vascular disease) Unspecified peripheral vascular disease Diabetes mellitus type I (CMS-HCC) Type I (juvenile type) diabetes mellitus without mention of complication, not stated as uncontrolled Hyponatremia Hyposmolality and/or hyponatremia Venous stasis ulcer of right lower leg with edema of right lower leg (CMS-HCC) Venous stasis ulcer of left lower leg with edema of left lower leg (CMS-HCC) [facility] Diagnosis CKD (chronic kidney disease) stage 2, GFR 60-89 ml/min- Primary Chronic kidney disease, Stage II (mild) [facility] Diagnosis Lymphedema- Primary Other noninfectious lymphedema Lymphorrhea Pressure injury of right heel, unstageable (CMS-HCC) Non-pressure ulcer of lower extremity with fat layer exposed, right ([facility]) Venous stasis ulcer of left lower leg with edema of left lower leg ([facility]) [facility] Diagnosis Stage 3b chronic kidney disease ([facility]-HCC)- Primary [facility] Diagnosis Non-pressure ulcer of lower extremity with fat layer exposed, right (CMS-HCC)- Primary Pressure injury of right heel, unstageable (CMS-HCC) Venous stasis ulcer of left lower leg with edema of left lower leg ([facility]-H[facility]) Lymphorrhea 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 ([facility]-HCC) [facility] [...] t Referred To Contact Procedures Codie Wynne APRN-MARTÍNEZ [address] [place], [place] [id number] Phone: tel: fax: Referral ID Status Reason Start Date Expiration Date V isits Requested Visits Authorized [id number] Authorized 11/18/2024 11/18/2025 1 1 * Misc (Routine) - Authorized Specialty Diagnoses / Procedures Referred By Contvianney t Referred To Contact Procedures Codie Brizuela, GIOVANNA-MARTÍNEZ [address] [place] [id number] Phone: tel: fax: Referral ID Status Reason Start Date Expiration Date V isits Requested Visits Authorized [id number] Authorized 11/18/2024 11/18/2025 1 1 [facility] System Summary Purpose Family History No Family [...] Documents on File Type Date Recorded Patient Sulphate Tester Expl anation Durable Power of Pyrometer Operator 12/08/2024 10:55 AM Date Activated Date Inactivated Comments 11/30/2024 2:08 PM 12/03/2024 12:36 PM Date Activated Date Inactivated Comments 11/08/2024 3:51 PM 11/14/2024 11:31 AM Date Activated Date Inactivated Comments 10/23/2024 6:54 PM 10/27/2024 5:45 PM Date Activated Date Inactivated Comments 04/18/2019 3:42 AM 04/18/2019 6:52 PM Documents on File Type Date Recorded Patient Sulphate Tester Expl anation Durable Power of Pyrometer Operator 12/08/2024 10:55 AM Date Activated Date Inactivated [...] 5:45 PM Date Activated Date Inactivated Comments 01/15/2025 1:49 PM 01/20/2025 2:34 PM Additional Source Comments INFORMATION SOURCE (unrecogn ized section and content) DATE CREATED AUTHOR 07/21/2022 [facility] DATE CREATED AUTHOR AUTHOR'S ORGANIZ ATION 09/20/2022 [facility] DATE CREATED AUTHOR AUTHOR'S ORGANIZ ATION 07/10/2024 [facility] EPIC DATE CREATED AUTHOR AUTHOR'S ORGANIZ ATION 09/12/2024 [facility] DATE CREATED AUTHOR AUTHOR'S ORGANIZ ATION 12/23/2024 [facility] DATE CREATED AUTHOR AUTHOR'S ORGANIZ ATION 01/04/2025 [facility] DATE CREATED AUTHOR AUTHOR'S ORGANIZ ATION 01/23/2025 [facility] DATE CREATED AUTHOR AUTHOR'S ORGANIZ ATION 02/06/2025 [facility] Care Teams (unrecognized sec tion and content) Manager Heavy Equipment Relationship Specialty Start Date End Date Marta Dee MD [address] [place] [address] PCP - General Pediatrics 05/27/23 Manager Heavy Equipment Relationship Specialty Start Date End Date Marta Dee MD [address] [place] [address] PCP - General Pediatrics 05/27/23 Manager Heavy Equipment Relationship Specialty Start Date End Date Marta Dee MD [address] [place] [address] PCP - General Pediatrics 05/27/23 Manager Heavy Equipment Relationship Specialty Start Date End Date Marta Dee MD [address] [place] [address] PCP - General Pediatrics 05/27/23 Manager Heavy Equipment Relationship Specialty Start Date End Date Marta Dee MD [address] [place] [address] PCP - General Pediatrics 05/27/23 Manager Heavy Equipment Relationship Specialty Start Date End Date Marta Dee MD [address] [place] [address] PCP - General Family Medicine 01/20/20 Manager Heavy Equipment Relationship Specialty Start Date End Date Marta Dee MD [address] [place] [address] PCP - General Family Medicine 01/20/20 Manager Heavy Equipment Relationship Specialty Start Date End Date Marta eDe MD [address] [place] [address] PCP - General Family Medicine 01/20/20 Manager Heavy Equipment Relationship Specialty Start Date End Date Marta Dee MD [address] [place] [address] PCP - General Family Medicine 01/20/20 Manager Heavy Equipment Relationship Specialty Start Date End Date Angeline Bridges MD [address] [place] [address] PCP - General Internal Medicine 08/30/24 Manager Heavy Equipment Relationship Specialty [place] [address] [place] [address] PCP - General Internal Medicine 08/30/24 Manager Heavy Equipment Relationship Specialty Start Date End Date Angeline Bridges MD [address] [place] [address] PCP - General Internal Medicine 08/30/24 Manager Heavy Equipment Relationship Specialty Start Date End Date Angeline Bridges MD [address] [place] [address] PCP - General Internal Medicine 11/08/24 Manager Heavy Equipment Relationship Specialty Start Date End Date Angeline Bridges MD [address] [place] [address] PCP - General Internal Medicine 11/08/24 Manager Heavy Equipment Relationship Specialty Start Date End Date Angeline Bridges MD [address] [place] [address] PCP - General Internal Medicine 11/08/24 Manager Heavy Equipment Relationship Specialty Start Date End Date Angeline Bridges MD [address] [place] [address] PCP - General Internal Medicine 11/08/24 Manager Heavy Equipment Relationship Specialty Start Date End Date Angeline Bridges MD [address] [place] [address] PCP - General Internal Medicine 11/08/24 Manager Heavy Equipment Relationship Specialty Start Date End Date Angeline Bridges MD [address] [place] [address] PCP - General Internal Medicine 11/08/24 Manager Heavy Equipment Relationship Specialty Start Date End Date Angeline Bridges MD [address] [place] [address] PCP - General Internal Medicine 11/08/24 Manager Heavy Equipment Relationship Specialty Start Date End Date Angeline Bridges MD [address] [place] [address] PCP - General Internal Medicine 11/08/24 Manager Heavy Equipment Relationship Specialty Start Date End Date Angeline Bridges MD [address] [place] [address] PCP - General Internal Medicine 11/08/24 Manager Heavy Equipment Relationship Specialty Start Date End Date Angeline Bridges MD [address] [place] [address] PCP - General Internal Medicine 11/08/24 Manager Heavy Equipment Relationship Specialty Start Date End Date Marta Dee MD [address] [place], [place] [id number] PCP - General Pediatrics 05/27/23 Manager Heavy Equipment Relationship Specialty Start Date End Date Angeline Bridges MD [address] [facility] [id number] PCP - General Internal Medicine 11/08/24 Reason for Visit (unrecogniz ed section and [...] 04/17/22 GRU, PATS ALFREDO 09/07/24, SCHED W/PT Reason Comments Wound Check Reason Onset Date Comments Care Navigation 10/14/2024 Reason Comments Leg Pain Specialty Diagnoses / Procedures Referred By Contac t Referred To Contact Diagnoses Lymphedema Zenobia Funez MD [address], [place] [address] Phone: tel: fax: Referral ID Status Reason Start Date Expiration Date Visits Re quested Visits Authorized [id number] 1 1 Reason Comments Wound Check Specialty Diagnoses / Procedures Referred By Contac t Referred To Contact Wound Care Diagnoses Cellulitis of lower extremity, unspecified laterality Margot Leiva, SUPERVISOR RE[employer]ANCE [employer] REPORTER [address] [place] [address] Phone: tel: fax: [facility] [address] [place] [address] Phone: tel: fax: Referral ID Status Reason Start Date Expiration Date Visits Requested Visits Authorized [id number] Pending Review Specialty Services Required 10/27/2024 10/27/2025 [...] infection 57 (Stop Bag - Provider: Reshma Contreras RN)2024 (New Bag - Provider: Reshma Contreras RN) 002 (Stop Bag - Provider: Reshma Contreras RN)2050 (New Bag - Provider: Abiola Bustillo RN) 005 (Stop Bag - Provider: Abiola Bustillo RN)2100 (Due) cyanocobalamin tablet 1,000 mcg 1,000 mcg, oral, Daily, First dose on Sat11/11/24 at 1200 0802 (Given - Provider: Ermias Borrego RN) 0803 (Given - Provider: Kathy Christine RN) 0816 (Given - Provider: Sunita Kirby, RN) furosemide (LASIX) tablet 40 mg (CANCELED) 40 mg, oral, Daily, First dose on Sat11/10/24 at 1100, Look-alike/sound-alike medication - verify indication for use. 08 (Given - Provider: Ermias Borrego, KIANNA) furosemide (LASIX) tablet 40 mg 40 mg, oral, Every 12 hours, First dose (after last modification) on Sat11/12/24 at 2100, Look-alike/sound-alike medication - verify indication for use. 2014 (Given - Provider: Reshma Contreras RN) 802 (Given - Provider: Kathy Christine RN)2043 (Given [...] with meals and nightly, First dose on 11/08/24 at 1745, Daytime hyperglycemia dosing. For blood [...] Comment: glucose 147)1704 (Given - Provider: Ermias Borrego RN)2020 (Given - Provider: Reshma Contreras, KIANNA)2200 (Not Given - Provider: Reshma Contreras RN - Reason: Other) 0800 (Not Given - Provider: Kathy Christine RN - Reason: Order parameters not met)1216 (Given - Provider: Kathy Christine RN)1642 (Given - Provider: Kathy Christine, KIANNA)2241 (Given - Provider: Abiola Bustillo RN - [...] tests weekly 0519 (Given - Provider: Maricel Alejandro, KIANNA) 0536 (Given - Provider: Roslyn Herrera RN) [...] Indication: GERD 0519 (Given - Provider: Maricel Alejandro, RN)0700 (Canceled Entry - Provider: Maricel Alejandro RN) 0536 (Given - Provider: Roslyn Herrera RN) 0627 (Given - Provider: Abiola Bustillo, KIANNA) potassium chloride (KLOR-CON M 20) CR tablet 20 mEq 20 mEq, oral, Daily, First dose on Sat11/13/24 at 1130, Hold for potassium level greater than 4.2 this need to be given regardless of the electrolytes replacement scale Do not crush or chew. 1212 (Given - Provider: Kathy Christine RN) 0816 (Given - Provider: Sunita Kirby RN) pregabalin (LYRICA) capsule 25 mg 25 mg, oral, 2 times daily, First dose on Sat11/10/24 at 1200, Look-alike/sound-alike medication. Verify indication for use 08 (Given - Provider: Ermias Borrego RN)2014 (Given - Provider: Reshma Contreras RN) 0803 (Given - Provider: Kathy Christine RN)2043 (Given - Provider: Abiola Bustillo, KIANNA) 08 (Given - Provider: Sunita Kirby RN)2099 (Due) sodium chloride 0.9 % flush 10 mL(Linked Group 2) 10 mL, intravenous, Every 12 hours, First dose on Sat11/13/24 at 1115, PICC line. Administer 10 mL per lumen; 10 mL total (for single lumen flush) 1640 (Given - Provider: Kathy Christine RN)2315 (Not Given - Provider: Abiola Bustillo RN - Reason: IV infusing) 1115 (Due)2315 (Due) sodium chloride 0.9 % flush 3 mL 3 mL, intravenous, Every 12 hours scheduled, First dose on Sat11/08/24 at 2100 0802 (Given - Provider: Ermias Borrego RN)2099 (Not Given - Provider: Reshma Contreras RN [...] Maricel Alejandro, RN)1219 (Given - Provider: Ermias Borrgeo, RN)2016 (Given - Provider: Reshma Contreras, KIANNA) 1212 (Given - Provider: Kathy Christine, KIANNA)195 (Given - Provider: Abiola Bustillo, KIANNA) 0437 (Given - Provider: Abiola Bustillo, RN) LORazepam (ATIVAN) tablet 0.5 mg 0.5 mg, oral, Daily PRN, anxiety, Starting on Sat11/08/24 at 1737, Look-alike/sound-alike medication - verify indication for use. 1338 (Given - Provider: Randy Pineda RN) magnesium sulfate IVPB 2000 mg/50 mL in [...] or chew. 1040 (Given - Provider: Kathy Christnie RN) potassium chloride IVPB 10 mEq/100 mL [...] 2047 (Given - Provider: Abiola Bustillo RN) 50 (Given - Provider: Abiola Bustillo RN) sodium [...] IVPB administration, Starting on Sat11/08/24 at 1737 2050 (Restarted - Provider: Abiola Bustillo, RN)2050 (Paused - Provider: Abiola Bustillo, RN) 50 (Restarted - Provider: Abiola Bustillo, RN)106 (Stop Bag - Provider: Abiola Bustillo, RN) [...] Contreras RN) 0009 (Given - Provider: Abiola Bustillo, RN) Linked Groups Order Group 1: cefEPime [...] BE BASED ON THE PRIMARY CLINICAL RECORDS. [facility]. provides no warranty or guarantee of the accuracy or completeness of information in this document.
[2025-03-30 15:23] LABS: Hematocrit 40.4 % (36.0-48.0); Hemoglobin 12.8 g/dL (12.0-16.0); Mean Corpuscular HGB Conc 31.7 g/dL (29.9-35.2); Mean Corpuscular Hemoglobin 27.2 pg (26.7-34.0); Mean Corpuscular Volume 85.8 fL (81.0-99.0); Platelet Count 355 10^3/uL (150-450); Red Blood Count 4.71 10^6/uL (4.20-5.40); White Blood Count 14.4 10^3/uL (4.0-11.0)
[2025-03-30 15:32] LABS: Alanine Aminotransferase 9 U/L (14-59); Albumin Globulin Ratio 0.4; Albumin Level 1.8 g/dL (3.4-5.0); Alkaline Phosphatase 106 U/L (46-116); Anion Gap 14.1; Aspartate Amino Transferase 15 U/L (15-37); Blood Urea Nitrogen 27.0 mg/dL (7.0-18.0); Calcium 9.0 mg/dL (8.5-10.1); Carbon Dioxide 31.3 mmol/L (21.0-32.0); Chloride 100 mmol/L (98-107); Estimated GFR (African America 31 (>=60 mL/min/1.73m^2); Estimated GFR (Non-African Ame 26 (>=60 mL/min/1.73m^2); Globulin 4.7 g/dL; Glucose 64 mg/dL (74-106); Potassium 3.4 mmol/L (3.5-5.1); Sodium 142 mmol/L (136-145); Total Protein 6.5 g/dL (6.4-8.2)
[2025-03-30 16:39] LABS: Basophils Abs Manual 0.00 10^3/uL (0.00-0.10); Basophils Percent Manual 0.0 % (0.2-2.0); Eosinophils Absolute Manual 0.00 10^3/uL (0.00-0.70); Eosinophils Percent Manual 0.0 % (0.9-7.0); Lymphocytes Absolute Manual 2.88 10^3/uL (1.20-3.80); Lymphocytes Percent Manual 20.0 % (20.5-60.0); Monocytes Absolute Manual 1.44 10^3/uL (0.30-0.80); Monocytes Percent Manual 10.0 % (1.7-12.0); Segmented Neut Absolute Manual 10.08 10^3/uL (1.4-6.5); Segmented Neutrophils % Manual 70.0 (43.0-75.0)
[2025-03-30 16:51] LABS: Glucose Urine UA NEGATIVE (NEGATIVE)
== END 2025-03-30 15:07 | disposition home or self-care (01) ==
LOC: LAB 15:06
PROVIDERS: Visit Provider Internal Medicine
DX: R41.0 Disorientation, unspecified (principal)
CPT/HCPCS: 36415; 80053; 81003; 85007; 85027